=== PATIENT | female | born 1995 | race African-American/Black ===

== ENCOUNTER 2016-09-16 13:22 | Inpatient (IN) ==
[2016-09-16 15:56] LABS: BASO% 0.4 % (0.0-0.8); EOS# 0.39 X1000 (0.0-0.7); EOS% 2.7 % (0.0-10.0); HEMATOCRIT 23.2 % (37.0-47.0); HEMOGLOBIN 7.5 g/dL (12.0-16.0); IMM GRAN# 0.04 X1000 (0.0-0.04); IMM GRAN% 0.3 % (0.0-0.5); LYMPH# 3.05 X1000 (1.2-3.4); LYMPH% 20.9 % (20.5-51.1); MANUAL DIFF NEEDED? NO; MCH 25.3 PG (27-31); MCHC 32.3 g/dL (33-37); MCV 78.1 FL (81-99); MONO# 0.84 X1000 (0.11-0.59); MONO% 5.7 % (1.7-9.3); MPV 8.5 FL (7.4-10.4); PLT 177 X1000 (130-400); RBC 2.97 XMIL (4.2-5.4); RETIC% 16.03 % (0.8-2.1); RETIC-HE 23.7 PG (28.2-36.6)
[2016-09-16] MEDS ORDERED: ZOFRAN IV ONE (16:30)
[2016-09-16] MEDS ORDERED: NS 1,000 ML IV ONE (16:30)
[2016-09-16] MEDS ORDERED: DILAUDID IM ONE (16:30)
--- NOTE | 2016-09-16 16:36 | PROVIDER DOCUMENTATION ---
HPI-Musculoskeletal Pain/Inj - GENERAL Chief Complaint: Generalized Pain Stated Complaint: SICKLE CELL Time Seen by Provider: 09/16/16 13:23 Past History - Adult - PAST MEDICAL HISTORY-ADULT Major Childhood Illnesses: reports: denies history, history unknown Cardiovascular: reports: denies history Respiratory: reports: asthma Gastrointestinal: reports: denies history Obstetrical/Gynecological: reports: denies history Genitourinary: reports: denies history Musculoskeletal: reports: chronic pain (due sickle cell crisis) Neurological: reports: denies history Endocrine/Immune: reports: Sickle Cell disease Sickle Cell Genotype:: SS Other Conditions: reports: denies history - PRIOR SURGERIES/PROCEDURES Surgical/Procedure History: reports: cholecystectomy, indwelling device (P-A-C placement) - IMMUNIZATION STATUS Childhood Immunizations: See Nurse Assessment Flu Vaccine: See Nurse Assessment - FAMILY HISTORY Family History: sickle cell disease/trait
--- NOTE | 2016-09-16 16:39 | PROVIDER DOCUMENTATION ---
HPI-General Adult - General Chief Complaint: Generalized Pain Stated Complaint: SICKLE CELL Time Seen by Provider: 09/16/16 13:23 Source: patient Allergies/Adverse Reactions: Patient Allergies Allergy/AdvReac Type Severity Reaction Status Date / Time latex Allergy Mild RASH Verified 09/09/16 08:35 meperidine HCl * AdvReac Severe SHORTNESS Verified 09/09/16 08:35 [From Demerol] OF BREATH; AND HEADACHE morphine AdvReac Mild HEADACHE Verified 09/09/16 08:35 AND HIVES vancomycin AdvReac Mild RASH Verified 09/09/16 08:35 Home Medications: Hydroxyurea 500 mg PO BID 06/17/16 - History of Present Illness -Gen Adult Nature of Presenting Problems: Pt is 21 y/o F presents to the ED with generalized pain. Pt states she hurts everywhere. Pt denies F. Pt denies N/V/D Location of Pain/Injury: reports: generalized Pain Radiation: reports: no radiation Quality of Pain: reports: aching Severity: reports: severe Onset/Duration: reports: just prior to arrival Timing: reports: still present, intermittent Context/Activities at Onset: reports: light activity Modifying Factors: improves with: nothing Associated Symptoms: reports: denies symptoms, arm pain, back/neck pain, chest pain, joint pain, muscle aches, weakness, trouble walking. denies: anxiety, constipation, cough, diaphoresis, diarrhea, dizziness, EENT symptoms, fatigue, fever/chills, genitourinary problems, headaches, heartburn, loss of appetite, malaise, sinus congestion/drainage, nausea, rash, seizure, shortness of breath, sensory/motor loss, pain with inspiration, swelling/mass in abdomen, syncope, vomiting Similar Symptoms Previously?: Yes Recently seen or treated by another doctor?: Yes - Sickle Cell Pain Related Context Sickle Cell Pain Location: reports: generalized Is this pain typical of prior episodes of crisis?: Yes Last crisis:: 09/09/2016 Review of Systems - Adult - REVIEW OF SYSTEMS - ADULT Constitutional: denies: chills, fever Eyes: denies: blurred vision, double vision Ears, Nose, Mouth & Throat: denies: ear pain, nose pain, throat pain Cardiovascular: reports: chest pain, irregular heart rate (tachy). denies: heart murmur Respiratory: denies: cough, shortness of breath, wheezing Gastrointestinal: reports: abdominal pain. denies: diarrhea, nausea, vomiting Genitourinary: denies: dysuria, hematuria Musculoskeletal: reports: bone pain, back pain, joint pain, muscle aches, neck pain Integumentary: denies: hives, itching Neurological: denies: dizziness/vertigo, headache/migraines Psychiatric: reports: no symptoms reported Endocrine: reports: no symptoms reported Hematologic/Lymphatic: reports: no symptoms reported Allergic/Immunologic: reports: no symptoms reported All Other Systems: Reviewed and Negative Past History - Adult - PAST MEDICAL HISTORY-ADULT Review of Records: reports: Nursing Assessment Review, Medications Reviewed, Social history reviewed & non-contributory. Major Childhood Illnesses: reports: denies history, history unknown Cardiovascular: reports: denies history Respiratory: reports: asthma Gastrointestinal: reports: denies history Obstetrical/Gynecological: reports: denies history Genitourinary: reports: denies history Musculoskeletal: reports: chronic pain (due sickle cell crisis) Neurological: reports: denies history Endocrine/Immune: reports: Sickle Cell disease Sickle Cell Genotype:: SS Other Conditions: reports: denies history - PRIOR SURGERIES/PROCEDURES Surgical/Procedure History: reports: cholecystectomy, indwelling device (P-A-C placement) - IMMUNIZATION STATUS Childhood Immunizations: See Nurse Assessment Flu Vaccine: See Nurse Assessment - FAMILY HISTORY Family History: sickle cell disease/trait - SOCIAL HISTORY Smoking: denies Substance Use: denies Living Situation: family Physical Exam-General - PHYSICAL EXAM-ADULT Initial Vital Signs Reviewed: Yes - CONSTITUTIONAL General Appearance: appears well, alert, severe distress, anxious - EYES Eyes: PERRL/EOMI, pink conjunctivae - HEAD, EARS, NOSE, MOUTH & THROAT HENMT: normocephalic/atraumatic, moist mucous membranes, normal ENT inspection - NECK Neck: full range of motion, supple, normal inspection, tender midline - RESPIRATORY Respiratory: lungs clear, normal breath sounds, other (chest tenderness) - CARDIOVASCULAR Cardiovascular: normal peripheral pulses, no edema, tachycardia - GASTROINTESTINAL (ABDOMEN) Abdominal Exam: normal bowel sounds, soft, tenderness - LYMPHATIC Lymphatic: no adenopathy - MUSCULOSKELETAL Back Exam: no vertebral tenderness, CVA tenderness Extremity: non-tender, normal gait, tenderness (generalized) - SKIN Integumentary: normal color, normal turgor, warm/dry - NEUROLOGIC 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 II-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 nml as tested, grossly normal, no motor/sensory deficits - PSYCHIATRIC Psych/Mental Status: normal mood/affect, normal thought content, normal thought process, oriented x 3 Progress - PLAN OF CARE/RESULTS Progress/Plan/Lab Results: Laboratory Tests 09/16/16 15:30 WBC 14.61 H RBC 2.97 L Hgb 7.5 L Hct 23.2 L MCV 78.1 L MCH 25.3 L MCHC 32.3 L RDW Std Deviation 18.9 H Plt Count 177 MPV 8.5 Immature Gran % (Auto) 0.3 Neut % (Auto) 70.0 Lymph % (Auto) 20.9 [place] % (Auto) 5.7 Eos % (Auto) 2.7 Baso % (Auto) 0.4 Immature Gran # (Auto) 0.04 Neut # 10.23 H Lymph # 3.05 [place] # 0.84 H Eos # 0.39 Baso # 0.06 Percent Retic 16.03 H Retic Hgb Equivalent 23.7 L Orders Category Date Time Status Saline Loc NOW Care 09/16/16 16:30 Active CHEST-PORTABLE [RAD] Stat Exams 09/16/16 16:31 Ordered BASIC METABOLIC PANEL [CHEM] Stat Lab 09/16/16 16:40 Ordered CBC WITH DIFF [HEME] Stat Lab 09/16/16 15:30 Completed RETIC COUNT [HEME] Stat Lab 09/16/16 15:30 Completed UA NIMS W/REFLEX CULT [URINALYSIS] Stat Lab 09/16/16 16:30 Uncollected 0.9% Sodium Chloride Inj [Ns] 1,000 ml Med 09/16/16 16:30 Active IV 999 mls/hr Hydromorphone [Dilaudid] Med 09/16/16 16:30 Discontinued 1 mg IM NOW ONE Ondansetron [Zofran] Med 09/16/16 16:30 Discontinued 4 mg IV NOW ONE Vital Signs - 24 hr 09/16/16 13:41 Temperature 98.3 F Pulse Rate 100 H Respiratory 22 Rate Blood Pressure 91/67 O2 Sat by Pulse 100 Oximetry - XRAY 1 XRAY: Bilateral XRAY Study: Chest Impression: Normal XRAY Interpretation: NAD - CONSULTS/PCP/HOSPITALIST Notification #1 *Consult/PCP/Hospitalist*: Dr. Patterson Time Discussed: 17:07 (Dr. Coles accepted admit ) Reason/Comments: Dr. Coles consults with Dr. Patterson Consult Disposition: Admit Departure - Departure Time of Disposition Order: 17:01 DIAGNOSIS: Sickle cell crisis Disposition: ADMITTED INPATIENT 09 Certified Medical Emergency: Emergent Condition: Stable Additional Instructions: ED Follow Up Instructions: You have been treated by a care provider in the Emergency Department. These instructions are being provided to you so you can have an understanding of how to care for yourself upon discharge. Upon discharge from the Emergency Department, you are responsible for making arrangements for follow-up care by a physician of your choice. Take all prescribed medications as directed. Return to the Emergency Department immediately for any new or worsening symptoms. You may call the Physician Referral phone number at [phone] to obtain a list of Physicians who are taking new patients. Referrals: None,PCP [Primary Care Provider] - Attestation - Scribe Verification/Attestation Scribe:: Mariza Schuster Acting as Scribe for:: Jamia Coles Scribe documention review:: This chart was documented by a scribe and accurately reflects the service the provider performed and the decisions made by the provider.
[2016-09-16 17:20] LABS: AGAP 13; BUN 5 mg/dL (8-22); CALCIUM 8.7 mg/dL (8.8-10.2); CHLORIDE 104 mmol/L (98-107); COSMO 278; SODIUM 141 mmol/L (136-145); TCO2 24 mmol/L (25-35)
[2016-09-16] MEDS ORDERED: NORCO-7.5 PO PRN (18:47)
[2016-09-16] MEDS ORDERED: DILAUDID IV PRN (18:50)
[2016-09-16] MEDS: FOLIC ACID PO SCH (19:15)
[2016-09-16] MEDS: NS 1,000 ML IV SCH (19:15)
--- NOTE | 2016-09-16 19:33 | Diag Imaging Result Document ---
PROCEDURE NAME: CHEST-PORTABLE - 09/16/2016 PROCEDURE TIME: 16:50 hours. FINDINGS: There is no evidence of acute cardiac or pulmonary disease. There is a Port-A-Cath, the port of which is in the lower lateral right chest with its tip in the superior vena cava. Compared to the previous study of 09/10/2016, the heart size appears slightly smaller. IMPRESSION: No evidence of acute disease.
[2016-09-16] MEDS: HYDREA PO SCH (20:50)
--- NOTE | 2016-09-16 23:29 | HISTORY AND PHYSICAL ---
PCP: None. CONSTRUCTION SUPERVISOR: Dr. Salmon. PRESENTING COMPLAINT: Generalized joint pains, chest pain to the back. HISTORY OF PRESENTING COMPLAINT: Ms. Henley is a 21-year-old female with a known history of sickle cell disease. The patient was just discharged from the hospital on 09/14/2016 after she was in for over 4 days. On that occasion patient was admitted for chest pain as well as generalized pain was controlled but according to her while she was being discharged she was still having some minimum chest pain. Subsequently at home as they just got worse radiated to the back and now she is having generalized pain in all her joints. She denies any fever. She denies any diarrhea, cough or any other source of possible infection. Patient therefore came to emergency room where she was evaluated and we were asked to see the patient for possible admission. PAST MEDICAL HISTORY: 1. History sickle cell disease with frequent pain crisis. 2. Chronic leukocytosis. 3. Asthma. 4. Depression. 5. Avascular necrosis of left femoral head. PAST SURGICAL HISTORY: Cholecystectomy. SOCIAL HISTORY: Patient denies any tobacco use or alcohol use. The patient is disabled because of sickle cell. FAMILY HISTORY: Two siblings with sickle cell trait. ALLERGIES: LATEX, MORPHINE, DEMEROL AND VANCOMYCIN. HOME MEDICATIONS: Include hydroxyurea, folic acid. REVIEW OF SYSTEMS: A 10-point review of system conducted with the patient. Unremarkable except what we have in the HPI. EXAM: Vital signs: Blood pressure 91/67, pulse of 71, respirations 22, temperature is 98.3 degrees. General: Ms. Henley is a 21-year-old female. She is in bed in some painful distress. HEENT: Mucosa is pink and moist. Anicteric. Acyanotic. Neck: Supple. Chest: Was clear. Cardiovascular: Regular rate and rhythm. There is no murmurs, no rubs, no gallops. Abdomen: Soft. Mildly tender in the epigastrium. Bowel sounds are present. No hepatosplenomegaly. Extremities: No pedal edema. TRIAGE RN: Patient is alert. She is oriented x4. Executive functions are intact. Cranial nerves 2-12 are grossly examined, intact. Cortical functions are also normal. Patient power and reflexes are intact general. Musculoskeletal: Patient has tenderness mobilizing every joint that she has. She also has some tenderness in the costochondral region and at the back. LABORATORY DATA: WBC is 14.61, hemoglobin is 7.5, platelet count of 177,000, reticulocyte count is 16. Chemistry. Sodium is 141, potassium is 4.0, chloride is 104, bicarb is 24, anion gap of 13, BUN is 5, calcium is 8.7. A chest x-ray done today is completely unremarkable. ASSESSMENT: 1. Sickle cell in painful crisis. 2. Hemolytic anemia of sickle cell disease. Reticulocyte count is high but patient's hemoglobin and hematocrit is 7.5 which seems to be her baseline. We will keep a very close eye on this. 3. History of asthma. Not in exacerbation. 4. Depression. 5. Vascular necrosis of the femoral head. PLAN: We are going to admit the patient to the medical floor. We are going to hydrate her with normal saline at the rate of 125 mL/h. We are also going to put her on pain medications including [place] and hydromorphone p.r.n. We will consult Dr. Salmon tomorrow morning to review the patient as well. The patient has been in and out of hospital forever. I think we probably need to get social staff worker involved to get her a primary care doctor to prevent the constant in and out at admissions.
[2016-09-16] MEDS: BENADRYL IV PRN (23:46)
[2016-09-16] MEDS: SODIUM CHLORIDE 0.9% INJ PRN (23:46)
[2016-09-16] MEDS: PHENERGAN IV PRN (23:47)
[2016-09-16] MEDS: DILAUDID IV PRN (23:47)
[2016-09-17 01:29] LABS: URINE CULTURE PL NEEDED? NO
[2016-09-17 01:47] LABS: BILIRUBIN URINE NEGATIVE (NEGATIVE); BLOOD URINE NEGATIVE (NEGATIVE); CLARITY CLEAR (CLEAR); COLOR YELLOW; GLUCOSE URINE NEGATIVE (NEGATIVE); LEUKOCYTES URINE NEGATIVE (NEGATIVE); NITRITE URINE NEGATIVE (NEGATIVE); PROTEIN URINE NEGATIVE (NEGATIVE); SP GRAVITY URINE 1.015; UROBILINOGEN URINE NORMAL
[2016-09-17 02:14] LABS: URINE EPITHELIAL CELLS <10 /HPF (<10); URINE WBC <10 /HPF (<10)
[2016-09-17 02:15] LABS: URINE SOURCE CLEAN CATCH
[2016-09-17] MEDS: DILAUDID IV PRN ×7 (03:35→22:07)
[2016-09-17] MEDS: NS 1,000 ML IV SCH ×3 (03:36→18:35)
[2016-09-17 06:36] LABS: BASO% 0.4 % (0.0-0.8); EOS# 0.43 X1000 (0.0-0.7); HEMATOCRIT 19.8 % (37.0-47.0); HEMOGLOBIN 6.4 g/dL (12.0-16.0); IMM GRAN# 0.03 X1000 (0.0-0.04); IMM GRAN% 0.3 % (0.0-0.5); LYMPH% 35.6 % (20.5-51.1); MANUAL DIFF NEEDED? YES; MCH 25.3 PG (27-31); MCHC 32.3 g/dL (33-37); MCV 78.3 FL (81-99); MONO# 0.72 X1000 (0.11-0.59); MONO% 6.7 % (1.7-9.3); MPV 8.6 FL (7.4-10.4); PLT 146 X1000 (130-400); RBC 2.53 XMIL (4.2-5.4)
[2016-09-17] MEDS: BENADRYL IV PRN ×4 (06:54→22:08)
[2016-09-17 07:10] LABS: AGAP 6; ALBUMIN 3.6 g/dL (3.5-5.0); BUN 4 mg/dL (8-22); CALCIUM 8.2 mg/dL (8.8-10.2); CHLORIDE 106 mmol/L (98-107); COSMO 272; POTASSIUM 3.6 mmol/L (3.5-5.1); SODIUM 138 mmol/L (136-145); TCO2 26 mmol/L (25-35)
[2016-09-17 07:11] LABS: ALKALINE PHOSPHATASE 94 U/L (32-104); GOT 24 U/L (10-30); GPT 13 U/L (10-36)
[2016-09-17] MEDS: FOLIC ACID PO SCH (09:08)
[2016-09-17 09:19] LABS: EOS 3 % (1-10); LYMPHS 29 % (21-51); MONO 4 % (1-9); NRBC 4 % (0-0)
[2016-09-17 09:20] LABS: HYPOCHROM 2+; POLYCHROM OCCASIONAL
[2016-09-17 09:21] LABS: TARGET CELLS OCCASIONAL
[2016-09-17] MEDS: SODIUM CHLORIDE 0.9% INJ PRN ×3 (10:12→22:08)
[2016-09-17] MEDS: PHENERGAN IV PRN ×3 (10:12→22:08)
[2016-09-17] MEDS: HYDREA PO SCH ×2 (10:13→20:24)
[2016-09-17] MEDS ORDERED: NS 500 ML IV ONE ×2 (16:35)
[2016-09-17] MEDS ORDERED: BENADRYL PO ONE (16:35)
[2016-09-17] MEDS ORDERED: TYLENOL PO ONE (16:35)
--- NOTE | 2016-09-17 16:48 | CONSULTATION ---
DATE OF CONSULTATION: 09/17/2016 REASON FOR CONSULTATION: Sickle-cell crisis. The patient seen in consultation at the request of Dr. Patterson. HPI: Ms. Henley is a sickle cell patient well known to our clinic for multiple hospitalizations for sickle cell pain crisis. She was discharged on 09/14/2016 after a pain crisis. At the time of that discharge she was having 3/10 chest pain but subsequently worsened to 8 to 9/10 and was affecting primarily her chest and back but then spread to all of her joints and she presented back to the emergency room. She denies any fevers, chills, diarrhea, cough or sore throat. PAST MEDICAL HISTORY: 1. Sickle cell disease with frequent pain crisis. 2. Depression. 3. Avascular necrosis of left femoral head. 4. Asthma. 5. Chronic leukocytosis. PAST SURGICAL HISTORY: Cholecystectomy. SOCIAL HISTORY: Patient denies tobacco, alcohol or illicit drug use. FAMILY HISTORY: Positive for sickle cell trait. ALLERGIES: VANCOMYCIN, DEMEROL, MORPHINE, LATEX. HOME MEDICATIONS: Hydroxyurea and folic acid along with pain medications. REVIEW OF SYSTEMS: Pertinent positives and negatives as per HPI. All other review of systems are negative. PHYSICAL EXAMINATION: General: At the time of consultation generally the patient is chronically ill-appearing lying in the bed in no acute distress. HEENT: Normocephalic, atraumatic. Sclerae icteric. Oropharynx is dry. Neck: Supple and symmetric with no lymphadenopathy. Cardiovascular: Regular rate and rhythm. Normal S1, S2. No murmurs, rubs, or gallops. Pulmonary: Lungs clear to auscultation anteriorly bilaterally without wheezes , rales, rhonchi. Gastrointestinal: Abdomen is soft, nontender, nondistended. Normoactive bowel sounds. Extremities: No clubbing, cyanosis or edema. Musculoskeletal: Tenderness to palpation of chest wall. Neuro: Alert, oriented x3. No focal deficits. Vital Signs: Temperature 97.9 degrees, pulse 75, respiratory rate 18, blood pressure 110/62, O2 saturation 99% on room air. LABORATORY DATA: White count 10.68, hemoglobin 6.4, platelet count 146,000. Sodium 138, potassium 3.6, chloride 106, bicarb 26, BUN 4, creatinine 0.4, glucose 91, total bilirubin 0.8, retic is 16%. Chest x-ray with no acute disease. ASSESSMENT AND PLAN: This is a 21-year-old female with sickle cell pain crisis. 1. Sickle cell disease: I agree with current pain control. We discussed goals of care with the expectation of lowering her pain score but not completely eradicating her pain. I will place her on O2 via nasal cannula to improve her oxygenation and decrease sickling. She will continue on her hydroxyurea and folic acid at this time. 2. Anemia: Her hemoglobin runs in the 7 to 8 range and she is less than 6.5 at this time. Given her ongoing crisis I have recommended transfusion of 1 unit of packed red blood cells. Risks and side effects were discussed in detail and she agreed to proceed. Thank you for the consultation the opportunity to participate in the care of this patient. I will follow along with you and leave further recommendations as indicated. NELLA
--- NOTE | 2016-09-17 17:02 | PROGRESS NOTE ---
DATE: 09/17/2016 SUBJECTIVE: Patient is still having pain. OBJECTIVE: Vital signs: Blood pressure 126/60, heart rate 65, respiratory rate 18, temperature 98.3 degrees. Cardiovascular: Regular rate and rhythm. Pulmonary: Bilateral breath sounds. Clear to auscultation. GI: Soft, nontender, nondistended. Bowel sounds are positive. LABORATORY DATA: Hemoglobin and hematocrit are 6 and 19 today, dropped from 7 and 23. Reticulocyte count yesterday was 16%, that is fairly high for her. She is usually below 10, more in the 3 to 5% range at baseline, although she has been steadily climbing since [place]. In any case, chemistries are okay. ASSESSMENT: Sickle cell crisis with active hemolysis and reticulocytosis. I think transfusion is in order. Dr. Alexander has ordered 1 unit of blood. Appreciate her following here at [facility]. We will continue hydration, O2, folic acid, hydroxyurea, and follow. DISPOSITION: Pending resolution of her pain crisis. May be a couple of days.
[2016-09-18] MEDS: SODIUM CHLORIDE 0.9% INJ PRN ×4 (02:01→18:37)
[2016-09-18] MEDS: DILAUDID IV PRN ×7 (02:01→21:50)
[2016-09-18] MEDS: BENADRYL IV PRN ×4 (05:53→18:37)
[2016-09-18] MEDS: PHENERGAN IV PRN ×5 (05:53→21:50)
[2016-09-18] MEDS: NS 1,000 ML IV SCH ×2 (06:07→12:35)
[2016-09-18 06:42] LABS: HEMATOCRIT 26.7 % (37.0-47.0); HEMOGLOBIN 8.8 g/dL (12.0-16.0); MCV 78.8 FL (81-99); MPV 8.5 FL (7.4-10.4); RBC 3.39 XMIL (4.2-5.4); RETIC% 11.98 % (0.8-2.1); RETIC-HE 22.4 PG (28.2-36.6)
[2016-09-18 07:02] LABS: AGAP 8; BUN 8 mg/dL (8-22); CALCIUM 8.8 mg/dL (8.8-10.2); CHLORIDE 106 mmol/L (98-107); COSMO 280; POTASSIUM 3.9 mmol/L (3.5-5.1); SODIUM 141 mmol/L (136-145); TCO2 27 mmol/L (25-35)
[2016-09-18] MEDS: FOLIC ACID PO SCH (09:23)
[2016-09-18] MEDS: HYDREA PO SCH ×2 (09:23→21:50)
--- NOTE | 2016-09-18 14:00 | PROGRESS NOTE ---
DATE: 09/18/2016 SUBJECTIVE: The patient states she is still having pain although it is less today. She denies any chest pain, palpitations, shortness of breath, dyspnea. OBJECTIVE: Vital Signs: Blood pressure is 138/86 with a heart rate of 71, respirations are 16, temperature is 98.4 degrees oral with room saturations of 100%. Cardiovascular: Regular rate and rhythm. S1 and S2 appreciated. Pulmonary: Breath sounds are clear. No increased work of breathing noted. Gastrointestinal: Abdomen is soft, nontender, nondistended. Bowel sounds in all 4 quadrants. Extremities: No clubbing, cyanosis, or edema. Calves are nontender. Pulses are palpable x4. LABS: WBC is 10.79 with hemoglobin 8.8, hematocrit 26.7, and platelets of 167,000. Sodium is 141, potassium 3.9, BUN 8, creatinine 0.4 with a glucose of 97. Her reticulocyte percent is 11.98 with reticulocyte hemoglobin equivalent 22.4. ASSESSMENT AND PLAN: Sickle cell crisis with active hemolysis and reticulocytosis. Will continue with hydration, O2, folic acid, hydroxyurea. Will repeat labs in the morning. Dictated by CORRINA Molina for Bharat Hernadez MD
[2016-09-19] MEDS: BENADRYL IV PRN ×4 (01:12→15:42)
[2016-09-19] MEDS: SODIUM CHLORIDE 0.9% INJ PRN ×2 (01:12→04:49)
[2016-09-19] MEDS: NS 1,000 ML IV SCH ×3 (01:12→17:52)
[2016-09-19] MEDS: PHENERGAN IV PRN ×4 (01:13→15:42)
[2016-09-19] MEDS: DILAUDID IV PRN ×7 (01:13→18:51)
[2016-09-19 06:05] LABS: HEMATOCRIT 26.8 % (37.0-47.0); HEMOGLOBIN 8.8 g/dL (12.0-16.0); MCH 25.7 PG (27-31); MCHC 32.8 g/dL (33-37); MCV 78.1 FL (81-99); MPV 8.3 FL (7.4-10.4); RBC 3.43 XMIL (4.2-5.4); RETIC% 10.78 % (0.8-2.1); RETIC-HE 22.6 PG (28.2-36.6)
[2016-09-19] MEDS: FOLIC ACID PO SCH (09:51)
[2016-09-19] MEDS: HYDREA PO SCH ×2 (09:52→22:16)
--- NOTE | 2016-09-19 11:43 | DISCHARGE SUMMARY ---
ADMISSION DATE: 09/16/2016 DISCHARGE DATE: 09/19/2016 HOME CARE MANAGER RN: Dr. Salmon. PRIMARY CARE PHYSICIAN: None. ADMISSION DIAGNOSES: 1. Sickle cell and painful crisis. 2. Hemolytic anemia of sickle cell disease. 3. History of asthma. 4. Depression. 5. Vascular necrosis of the femoral head. DISCHARGE DIAGNOSES: 1. Hemolytic anemia of sickle cell disease, crisis resolved. 2. History of asthma. 3. Depression. 4. Vascular necrosis of the femoral head. SUMMARY OF FINDINGS: This is a 21-year-old female who is well known to this hospitalist service. Prior to this admission was discharged from the hospital on 09/14/2016 after she was in for over 4 days at that time. She presented back on 09/16/2016 with complaints that her pain continued to worsen and radiated to her back and generalized pain in all of her joints. She was admitted. We hydrated her with normal saline at 125 mL an hour. Gave IV and p.o. pain medication. She was transferred [facility] to [facility] due to no bed availability at [facility] [place]. Oncologist was not consulted at this time. Oncology saw the patient on 09/17/2016. They recommended transfusing her with 1 unit of packed red blood cells and continue her pain control. Her laboratory data shows today an hemoglobin and hematocrit of 8.8 and 26.8. Her percent reticulocyte count is 10.78. So it is felt that she can safely be discharged home today. DISCHARGE MEDICATIONS: Include a prescription for [place] 10 one p.o. t.i.d., #30 with no refills. She is to continue her home medications of folic acid 1 mg p.o. daily, hydroxyurea 500 mg p.o. b.i.d., albuterol 3-4 times daily as needed. FOLLOWUP: She will follow up with her sales and marketing administrator in 1-2 weeks. All discharge instructions were reviewed with the patient and she verbalized understanding. TIME SPENT: 35 minutes. Dictated by CORRINA Gr for Kristian Jasso MD
[2016-09-19] MEDS ORDERED: HEPARIN INJ ONE (11:49)
--- NOTE | 2016-09-19 21:49 | PROGRESS NOTE ---
DATE: 09/19/2016 SUBJECTIVE: Patient appears to have no complaints, although it is extremely difficult to understand or hear her. She tends to mumble more than talk. I attempted to discuss with Ms. Henley, but I have great difficulty understanding when she does not speak out. OBJECTIVE: Vital signs: Temperature 98.3, pulse 70, respiratory rate 18, blood pressure 125/70. General: Patient is in no respiratory distress. She is awake, alert, oriented. Neck: Supple. CARDIOVASCULAR: Regular rate. Chest: Clear. Nonlabored. Abdomen: Soft, nondistended. Extremities: Moves all extremities. Neurologic: No changes. LABORATORY DATA: Hemoglobin and hematocrit 8 and 26, reticulocyte count 22. ASSESSMENT: 1. Sickle cell pain crisis. Appears resolved. Patient has no outward symptoms of pain. She is lying in the bed playing on her phone. It is difficult to get her to answer questions and put her phone down. 2. Sickle cell anemia. Her hemoglobin and hematocrit is as good as she gets. PLAN: Certainly hopefully we will discharge the patient home today. We will again attempt to encourage her to get out of bed as we do each time she is in the hospital. Further orders as needed.
[2016-09-20] MEDS: DILAUDID IV PRN ×3 (01:45→08:38)
[2016-09-20] MEDS: NS 1,000 ML IV SCH (01:49)
[2016-09-20] MEDS: BENADRYL IV PRN ×2 (04:47→08:38)
[2016-09-20] MEDS: PHENERGAN IV PRN (04:47)
[2016-09-20 05:51] VITALS: BP 93/50
[2016-09-20] MEDS: FOLIC ACID PO SCH (08:39)
[2016-09-20] MEDS: HYDREA PO SCH (08:39)
[2016-09-20] MEDS ORDERED: HEPARIN ONE (10:10)
== END 2016-09-20 10:51 | disposition home or self-care (01) | DRG 812 ==
LOC: ED 13:22 → EDIPHOLD 20:06 → P.MEDSURG 21:45
PROVIDERS: ATTEND Family Medicine
PROC: 30233N1 Transfusion of Nonautologous Red Blood Cells into Peripheral Vein, Percutaneous Approach (ICD-10-PCS; principal; 2016-09-17)
DX: D57.00 Hb-SS disease with crisis, unspecified (principal); M87.9 Osteonecrosis, unspecified; J45.909 Unspecified asthma, uncomplicated; F32.9 Major depressive disorder, single episode, unspecified; Z79.899 Other long term (current) drug therapy
CPT/HCPCS: 71010; 80048; 80053; 81001; 85025; 85027; 85045; 86850; 86900; 86901; 86920; 96361; 96374; 96375; J1170; J1200; J2405; J2550; J7030; P9016; S0176

== ENCOUNTER 2016-11-03 15:02 | Inpatient (IN) ==
[2016-11-03] MEDS ORDERED: DILAUDID IV ONE (15:33)
[2016-11-03] MEDS ORDERED: NS 1,000 ML IV ONE (15:33)
[2016-11-03] MEDS ORDERED: BENADRYL IM ONE (15:34)
[2016-11-03] MEDS ORDERED: ZOFRAN IV ONE (15:34)
[2016-11-03] MEDS ORDERED: TYLENOL PO ONE ×2 (15:37→16:19)
[2016-11-03 15:55] LABS: URINE MICRO REVIEW NEEDED? NO; URINE SOURCE CLEAN CATCH
--- NOTE | 2016-11-03 15:57 | PROVIDER DOCUMENTATION ---
HPI-Fever - General Chief Complaint: Sickle Cell Crisis Stated Complaint: SICKLE CELL CRISIS Time Seen by Provider: 11/03/16 15:31 Source: patient Allergies/Adverse Reactions: Patient Allergies Allergy/AdvReac Type Severity Reaction Status Date / Time latex Allergy Mild RASH Verified 10/19/16 02:35 meperidine HCl * AdvReac Severe SHORTNESS Verified 10/19/16 02:35 [From Demerol] OF BREATH; AND HEADACHE vancomycin AdvReac Severe RASH Verified 10/20/16 06:01 morphine AdvReac Mild HEADACHE Verified 10/19/16 02:35 AND HIVES Home Medications: Home Medication List Medication Instructions Recorded Confirmed Last Taken Type Hydroxyurea 500 mg PO BID 06/17/16 10/19/16 10/18/16 21:00 History Folic Acid 1 mg PO DAILY #30 tablet 09/14/16 10/19/16 10/18/16 09:00 Rx Fentanyl 12 Microgm/Hr Patch 12.5 patch TOP DIRECTED 10/19/16 10/19/16 09:00 History [Duragesic 12 Microgm/Hr Patch] Cefazolin Sodium in 0.9 % NaCl 2 gm IV Q8H #1 piggyback 10/24/16 Unknown Rx [Cefazolin-0.9% NaCl 2 G/50 ml] Hydrocodone/Acetaminophen [[place] 1 each PO Q8H PRN PRN #10 tablet 10/30/16 Unknown Rx 10-325 Tablet] - History of Present Illness-Fever Nature of Presenting Problem: 21 y/o F presented to the ER complaining of severe pain in the back and in the hips. She has a hx of sickle cell disease and experience painful episodes every 2-3 months. She denies any other symptoms except for fever and chills. She admits to taking all her vaccinations. Fever Severity/Quality: reports: greater than 100.5 F Onset/Duration: reports: 4-6 hours ago Severity: reports: severe Context: reports: none Recent Illness?: reports: none Fever Therapy WIRING INSPECTOR: Initiated none Cognitive Baseline: alert, oriented x3 Modifying Factors: improves with: nothing Associated Symptoms: reports: back/neck pain, joint pain Similar Symptoms Previously?: Yes Recently seen or treated by another doctor?: Yes Review of Systems - Adult - REVIEW OF SYSTEMS - ADULT Constitutional: reports: fever Eyes: reports: no symptoms reported Ears, Nose, Mouth & Throat: reports: no symptoms reported Cardiovascular: reports: no symptoms reported Respiratory: reports: no symptoms reported Gastrointestinal: reports: no symptoms reported Genitourinary: reports: no symptoms reported Musculoskeletal: reports: bone pain, back pain Integumentary: reports: no symptoms reported Neurological: reports: no symptoms reported Psychiatric: reports: no symptoms reported Endocrine: reports: no symptoms reported Hematologic/Lymphatic: reports: no symptoms reported Allergic/Immunologic: reports: no symptoms reported Past History - Adult - PAST MEDICAL HISTORY-ADULT Major Childhood Illnesses: reports: denies history, history unknown Cardiovascular: reports: denies history Respiratory: reports: asthma Gastrointestinal: reports: denies history Obstetrical/Gynecological: reports: denies history Genitourinary: reports: denies history Musculoskeletal: reports: chronic pain (due sickle cell crisis) Neurological: reports: denies history Endocrine/Immune: reports: Sickle Cell disease Sickle Cell Genotype:: SS Other Conditions: reports: denies history - PRIOR SURGERIES/PROCEDURES Surgical/Procedure History: reports: cholecystectomy, indwelling device (P-A-C placement) - IMMUNIZATION STATUS Childhood Immunizations: See Nurse Assessment Flu Vaccine: See Nurse Assessment - FAMILY HISTORY Family History: sickle cell disease/trait Physical Exam-General - PHYSICAL EXAM-ADULT Initial Vital Signs Reviewed: Yes - CONSTITUTIONAL General Appearance: severe distress - EYES Eyes: PERRL/EOMI - HEAD, EARS, NOSE, MOUTH & THROAT HENMT: normocephalic/atraumatic - NECK Neck: supple - RESPIRATORY Respiratory: lungs clear - CARDIOVASCULAR Cardiovascular: tachycardia - CHEST (BREASTS) Chest/Breast: deferred - GASTROINTESTINAL (ABDOMEN) Abdominal Exam: normal bowel sounds, soft - GENITOURINARY Female Genitalia/Pelvic Exam: deferred - LYMPHATIC Lymphatic: no adenopathy - MUSCULOSKELETAL Back Exam: decreased range of motion, vertebral tenderness Extremity: normal range of motion Peripheral Pulses: dorsalis-pedis (R): 2+, dorsalis-pedis (L): 2+ - SKIN Integumentary: normal color - NEUROLOGIC Neurologic: grossly normal - PSYCHIATRIC Psych/Mental Status: oriented x 3 Progress - PLAN OF CARE/RESULTS Progress/Plan/Lab Results: Patient's pain is mildly improving. Nurse reported that she has a port for frequent IV intake that is infected and draining pus. Patient is still feverish. We agreed to drain the pus and send it for culture and not to use the port till further recommendations by ID. Will admit the patient for IV ANTIBIOTICS AND FOR SURGICAL AND ID DISEASE CONSULTATION ON TOP OF SICKLE PAIN MANAGEMENT. - REASSESSMENT Reassessment #1 Time Reassessed: 17:37 Status: unchanged - CONSULTS/PCP/HOSPITALIST Notification #1 *Consult/PCP/Hospitalist*: DR PIERCE Departure - Departure Time of Disposition Order: 18:04 DIAGNOSIS: Sickle cell disease, Abscess, Fever, Bacteremia Disposition: ADMITTED INPATIENT 09 Certified Medical Emergency: Emergent Condition: Fair Referrals: Ty Saravia MD [Primary Care Provider] -
[2016-11-03 16:08] LABS: BILIRUBIN URINE NEGATIVE (NEGATIVE); BLOOD URINE NEGATIVE (NEGATIVE); COLOR YELLOW; GLUCOSE URINE NEGATIVE (NEGATIVE); LEUKOCYTES URINE NEGATIVE (NEGATIVE); NITRITE URINE NEGATIVE (NEGATIVE); PH URINE 7.5; PROTEIN URINE NEGATIVE (NEGATIVE); SP GRAVITY URINE 1.012; TURBIDITY URINE CLEAR (CLEAR); UROBILINOGEN URINE NORMAL (NORMAL)
[2016-11-03 16:10] LABS: UR EPITHELIAL CELLS <10 /HPF (<10); URINE BACTERIA NEGATIVE /HPF; URINE RBC <10 /HPF (<10); URINE WBC <10 /HPF (<10)
[2016-11-03 16:26] LABS: BASO% 0.4 % (0.0-0.8); EOS# 0.07 X1000 (0.0-0.7); EOS% 0.7 % (0.0-10.0); HEMATOCRIT 25.6 % (37.0-47.0); HEMOGLOBIN 8.5 g/dL (12.0-16.0); IMM GRAN# 0.02 X1000 (0.0-0.04); IMM GRAN% 0.2 % (0.0-0.5); LYMPH% 18.8 % (20.5-51.1); MANUAL DIFF NEEDED? YES; MCH 25.6 PG (27-31); MCHC 33.2 g/dL (33-37); MCV 77.1 FL (81-99); MONO# 0.55 X1000 (0.11-0.59); MONO% 5.2 % (1.7-9.3); MPV 8.6 FL (7.4-10.4); NEUT% 74.7 % (42.2-75.2); PLT 428 X1000 (130-400); RBC 3.32 XMIL (4.2-5.4)
[2016-11-03 16:34] LABS: AGAP 13; ALBUMIN 4.4 g/dL (3.5-5.0); ALKALINE PHOSPHATASE 112 U/L (32-104); BUN 6 mg/dL (8-22); CALCIUM 8.7 mg/dL (8.8-10.2); CHLORIDE 97 mmol/L (98-107); COSMO 263; GOT 21 U/L (10-30); GPT 13 U/L (10-36); POTASSIUM 3.6 mmol/L (3.5-5.1); SODIUM 133 mmol/L (136-145); TCO2 23 mmol/L (25-35); TOTAL BILIRUBIN 1.37 mg/dL (0.20-1.00); TOTAL PROTEIN 7.9 g/dL (6.3-8.3)
[2016-11-03 16:38] LABS: LYMPHS 15 % (21-51)
[2016-11-03 16:39] LABS: HYPOCHROM 2+
[2016-11-03 16:40] LABS: TARGET CELLS 1+
[2016-11-03] MEDS ORDERED: NORCO-10 PO PRN (18:25)
[2016-11-03] MEDS ORDERED: ZOFRAN IV PRN (18:25)
[2016-11-03] MEDS ORDERED: DILAUDID ONE (18:58)
[2016-11-03] MEDS: ROCEPHIN 2 GM/NS 50 ML IV SCH (19:05)
[2016-11-03] MEDS: DILAUDID IV PRN ×2 (19:05→22:03)
[2016-11-03] MEDS: NS 1,000 ML IV SCH (19:58)
[2016-11-03] MEDS ORDERED: CUBICIN (FOR INPATIENT USE) 600 MG in NS 100 ML IV ONE (20:00)
--- NOTE | 2016-11-03 20:00 | HISTORY AND PHYSICAL ---
PRIMARY CARE PROVIDER: No one. DRUMS TEACHER: Dr. Salmon. CHIEF COMPLAINT: Backache and hip pains and subjective fever with chills for the last 2 days. HISTORY OF PRESENT ILLNESS: Ms Henley is a 21-year-old female with a history of sickle cell disease with painful flares about every 2-3 months who is well known to our service. She has a right chest port that she has been receiving IV antibiotics Ancef for Kraig bacteremia that was undiagnosed 10/19/2016 and she was discharged 10/29/2016 on Ancef IV q.8 hours who is followed by [facility] on at home with her last cultures prior to this admission for blood was negative on 10/23/2016. Apparently she has been having complaints of subjective fever with chills for last 2 days, increasing pain in her back and hip. Workup revealed a fever of 100.2, she was tachycardic rate 100-1 teens with a white blood cell count of 10,000. Nurse observed that the site was oozy, the port site was oozy and access was removed de- accessed and it was noted that there were per the notes yellow exudate mixed with blood that began draining from the needle penetration area. This exudate was collected for sample and was sent for culture. We will begin treat with a 1 time dose of Cubicin and scheduled Rocephin IV and treat her pain crisis. PAST MEDICAL HISTORY: 1. Sickle cell disease with frequent pain crises. 2. Chronic leukocytosis. 3. Asthma. 4. Depression. 5. Avascular necrosis of the left femoral head. PAST SURGICAL HISTORY: Cholecystectomy and port placement. SOCIAL HISTORY: Denies tobacco, alcohol or illicit drug use. FAMILY HISTORY: Has 2 siblings with sickle cell trait. ALLERGIES: Latex, Demerol, vancomycin, morphine. HOME MEDICATIONS: Hydroxyurea 500 mg p.o. twice daily, fentanyl patch 12.5 topical daily, [place] 10 1 tab p.o. q.8 hours p.r.n., Ancef 2 g IV q.8 hours, folic acid 1 mg p.o. daily. REVIEW OF SYSTEMS: Fourteen point review of systems were complete and all were negative for those mentioned above HPI. LABORATORY DATA: White blood cells 10,000, hemoglobin 8.5, hematocrit 25.6, platelet count 428,000. Sodium 133, potassium 3.6, BUN 6, creatinine 0.4. Glucose 89, calcium 8.7, total bilirubin 1.37, AST 21, ALT 13, CK 40. Urinalysis 10 ketones otherwise negative. Chest x-ray has not been officially reported. PHYSICAL EXAMINATION: VITAL SIGNS: Temperature is 100.2 degrees, heart rate 100, respiratory rate 13 , blood pressure 110/55, O2 saturation 100% on room air, she is 5 feet 6 inches tall, 140 pounds , BMI 22.6. GENERAL: Ms. Henley is a 21-year-old female in no acute distress but is very tearful, she is able answer all questions appropriately. HEENT: Atraumatic, normocephalic. Pupils equal, round, reactive to light. Extraocular movements intact . CARDIOVASCULAR: S1, S2. Regular rate and rhythm. No rubs, gallops, murmurs. PULMONARY: Clear to auscultate. Bilateral breath sounds. No accessory muscle use or work of breathing noted. GI: Soft, nontender, nondistended. Positive bowel sounds x4. EXTREMITIES: No edema noted, +2 dorsalis radial pulses. NEUROLOGIC: A and O x4. Moves all extremities equally. SKIN: Warm, dry, intact. Right chest below the right breast port site is currently dry with a dry gauze over it and de-accessed but was reported that there was yellow exudate that came out with blood when de-accessed. ASSESSMENT AND PLAN: 1. Recent Mssa bacteremia that she has been treated with Ancef at home with. She has had complaints of subjective fever with chills the last 2 days and was found to have fever here. Will give her a 1 time dose of Cubicin for MRSA coverage and start her on scheduled IV Rocephin and follow up with blood cultures and right port site cultures and may need to reconsult Dr. Castellanos after workup is completed. 2. Sickle cell disease with frequent pain crises. Will continue with Dilaudid 1-2 q.3 hours p.r.n., with [place] p.r.n., Benadryl for itching, Zofran for nausea. Her pain is located in her lower back and hips bilaterally. 3. Asthma stable. 4. Depression stable. 5. Chronic elevation of hyperbilirubinemia is currently 1.37 and the trend looks like she is anywhere from 1.43-1.5 in the last month will continue to trend her bilirubin. 6. Deep venous thrombosis prophylaxis. Will do SCDs. 7. Gastrointestinal prophylaxis. Proton pump inhibitor. Dictated by CORRINA Stanford for Brock Patterson MD MTDD
--- NOTE | 2016-11-03 21:18 | Diag Imaging Result Document ---
PROCEDURE NAME: CHEST-2 VIEWS - 11/03/2016 AP AND LATERAL RADIOGRAPH OF THE CHEST: COMPARISON: 10/26/2016. FINDINGS: Right chest port is in stable position. Inspiration is somewhat suboptimal. The lungs are grossly clear, otherwise. There is no definite pleural fluid collection. Cardiac silhouette appears mildly prominent. Central vasculature is grossly unremarkable. IMPRESSION: Mildly prominent cardiac silhouette. No definite acute pathology, otherwise.
[2016-11-03] MEDS: ZOFRAN IV PRN (22:04)
[2016-11-03] MEDS: BENADRYL IV PRN (22:04)
[2016-11-03] MEDS: HYDREA PO SCH (22:17)
[2016-11-04] MEDS: DILAUDID IV PRN ×8 (01:08→23:00)
[2016-11-04] MEDS: ZOFRAN IV PRN ×4 (04:10→23:00)
[2016-11-04] MEDS: BENADRYL IV PRN ×5 (04:10→23:00)
[2016-11-04 06:42] LABS: BASO% 0.5 % (0.0-0.8); HEMATOCRIT 23.2 % (37.0-47.0); HEMOGLOBIN 7.6 g/dL (12.0-16.0); LYMPH# 3.12 X1000 (1.2-3.4); MANUAL DIFF NEEDED? NO; MCH 25.4 PG (27-31); MCHC 32.8 g/dL (33-37); MCV 77.6 FL (81-99); MONO# 0.78 X1000 (0.11-0.59); MPV 8.2 FL (7.4-10.4); NEUT% 57.5 % (42.2-75.2); PLT 340 X1000 (130-400); RBC 2.99 XMIL (4.2-5.4)
[2016-11-04 06:50] LABS: INR 1.07; PROTIME 11.4 Seconds (9.2-11.7); PTT 27.8 Seconds (22.0-36.0)
[2016-11-04] MEDS ORDERED: PRILOSEC PO SCH (07:00)
[2016-11-04 07:03] LABS: AGAP 12; ALBUMIN 3.7 g/dL (3.5-5.0); ALKALINE PHOSPHATASE 122 U/L (32-104); BUN 9 mg/dL (8-22); CHLORIDE 106 mmol/L (98-107); COSMO 282; GOT 17 U/L (10-30); GPT 10 U/L (10-36); POTASSIUM 4.2 mmol/L (3.5-5.1); SODIUM 142 mmol/L (136-145); TCO2 24 mmol/L (25-35); TOTAL BILIRUBIN 0.77 mg/dL (0.20-1.00); TOTAL PROTEIN 6.8 g/dL (6.3-8.3)
[2016-11-04] MEDS: NS 1,000 ML IV SCH ×3 (07:20→23:00)
[2016-11-04] MEDS: PRILOSEC PO SCH (08:06)
--- NOTE | 2016-11-04 09:44 | ED EKG INTERP ---
EKG Interpretation - EKG Time of EKG reading by physician:: 16:36 EKG Read and Signed by:: Alicia Conner EKG Interpretation (*Must complete 3 of following elements*): Normal Rate: 82 Rhythm: normal sinus rhythm [place]: normal
[2016-11-04] MEDS: DURAGESIC 12 MICROGM/HR PATCH TD SCH (09:55)
[2016-11-04] MEDS: HYDREA PO SCH ×2 (09:56→23:00)
[2016-11-04] MEDS: FOLIC ACID PO SCH (09:56)
--- NOTE | 2016-11-04 19:46 | PROGRESS NOTE ---
DATE: 11/04/2016 SUBJECTIVE: Today Ms. Henley referred to be doing a whole lot better. Pain is under control. She has not had any more fever since she got admitted. OBJECTIVE: Vital signs: Blood pressure is 128/58, pulse of 79, respirations 18 , temperature is 98.2 degrees. General: Ms. Henley is a 21-year-old female. She is in bed, no distress. HEENT: Mucosa is pink and moist. Anicteric. Acyanotic. Neck: Supple. Chest: Clear. Cardiovascular: Regular rate and rhythm. Chest: There is a Mcmanus catheter under the right breast, midline. It is slightly tender on the skin on top of it. However , there are no erythematous changes or any pus coming out and it is not fluctuant. Abdomen: Soft. No hepatosplenomegaly. Extremities: No pedal edema. BORDERER: Patient is alert and oriented. LABORATORY DATA: WBC is 9.76, hemoglobin is 7.6, and platelet count of 340, 000. Chemistry is reviewed and completely normal. Plasma lactate is 0.9. So far the Gram stain from the fistula says gram-positive cocci. ASSESSMENT: Ms. Henley is a sickle cell patient who has an indwelling Mcmanus catheter. Patient was recently discharged from the hospital for Methicillin-sensitive Staphylococcus aureus bacteremia. She was discharged on Ancef. However, she had to come back with what seems to be sepsis. 1. Sepsis likely due to CLABSI, that is central line associated bloodstream infection. The top of the Mcmanus seems to have some pus. This morning it is showing gram- positive cocci. The patient was on Ancef and was having fever so we are concerned if she has developed anything else. We gave her a dose of Cubicin yesterday and we have been giving her ceftriaxone. I plan to continue this and await the final culture from both the central line and also from the peripheral line blood cultures. 2. Sickle cell disease. Patient is frequently in pain. I am not quite sure if she is in painful crisis or if she is just now very addictive to pain medications. she keeps requesting for pain meds meanwhile as soon as you leave her room you can hear her on her phone. 3. Depression. PLAN: We are going to continue with the current antibiotics. We are awaiting the results on the blood cultures. We will give further recommendations during the hospital stay. I did explain to the patient if the cultures are normal will be able to discharge her tomorrow. NELLA
[2016-11-04] MEDS: ROCEPHIN 2 GM/NS 50 ML IV SCH (23:00)
[2016-11-05] MEDS: DILAUDID IV PRN ×7 (02:28→21:01)
[2016-11-05] MEDS: ZOFRAN IV PRN ×2 (05:37→11:53)
[2016-11-05] MEDS: PRILOSEC PO SCH (05:37)
[2016-11-05] MEDS: BENADRYL IV PRN ×3 (05:37→18:01)
--- NOTE | 2016-11-05 06:38 | EKG Report ---
Test Performed on : 11/03/2016 4:36:53 PM Test Reason : CP Blood Pressure : / mmHG Vent. Rate : 082 BPM Atrial Rate : 082 BPM P-R Int : 140 ms QRS Dur : 082 ms QT Int : 390 ms P-R-T Axes : 053 023 005 degrees QTc Int : 455 ms Normal sinus rhythm. Possible Left atrial enlargement Nonspecific T wave abnormality Abnormal ECG When compared with ECG of 06-OCT-2016 18:01, Nonspecific T wave abnormality now evident in Lateral leads Unconfirmed Result
[2016-11-05 07:26] LABS: BASO% 0.4 % (0.0-0.8); EOS# 0.23 X1000 (0.0-0.7); EOS% 2.4 % (0.0-10.0); IMM GRAN# 0.02 X1000 (0.0-0.04); IMM GRAN% 0.2 % (0.0-0.5); LYMPH# 3.16 X1000 (1.2-3.4); LYMPH% 32.5 % (20.5-51.1); MANUAL DIFF NEEDED? NO; MCH 24.8 PG (27-31); MCV 77.4 FL (81-99); MONO# 0.59 X1000 (0.11-0.59); MONO% 6.1 % (1.7-9.3); MPV 8.3 FL (7.4-10.4); NEUT% 58.4 % (42.2-75.2); PLT 342 X1000 (130-400); RBC 3.23 XMIL (4.2-5.4); RETIC% 4.76 % (0.8-2.1); RETIC-HE 23.5 PG (28.2-36.6)
[2016-11-05 07:53] LABS: AGAP 11; BUN 6 mg/dL (8-22); CALCIUM 8.4 mg/dL (8.8-10.2); CHLORIDE 102 mmol/L (98-107); COSMO 272; SODIUM 138 mmol/L (136-145); TCO2 25 mmol/L (25-35)
[2016-11-05] MEDS: DURAGESIC 12 MICROGM/HR PATCH TD SCH (08:56)
[2016-11-05] MEDS: HYDREA PO SCH ×2 (08:56→20:06)
[2016-11-05] MEDS: FOLIC ACID PO SCH (08:56)
[2016-11-05] MEDS: KEFZOL 2 GM/D5W 50 ML IV SCH ×2 (09:45→18:01)
[2016-11-05] MEDS: NS 1,000 ML IV SCH (11:53)
[2016-11-05] MEDS: LOVENOX SUBQ SCH (14:56)
[2016-11-05] MEDS: PHENERGAN IV PRN (18:01)
--- NOTE | 2016-11-05 18:17 | PROGRESS NOTE ---
DATE: 11/05/2016 SUBJECTIVE: The patient is resting comfortably in bed. She states that she is still having some mild chest wall pain at the site of her port but otherwise no discharge. OBJECTIVE: Vital Signs: Temperature 98.4 degrees, blood pressure 140/77, heart rate 69, respirations 22, O2 saturations 99% on room air. General: This is a young female lying comfortably in bed in no acute distress. Head: Normocephalic, atraumatic. Heart: S1, S2. Normal. Regular rate and rhythm. Lungs: Clear to auscultation bilaterally. No wheezes, no rales. No rhonchi. Abdomen: Positive bowel sounds. Soft, nontender, nondistended. Extremities: No edema. No cyanosis. No calf tenderness. Neurologic: The patient is alert and oriented x3. No focal neurologic deficits noted. LABS: Hemoglobin 8, hematocrit 25, platelets 342,000, white blood cell count 9.7, retic count 4.7. Sodium 138, potassium 4, chloride 102, CO2 25, BUN 6, creatinine 0.5, glucose 84. ASSESSMENT AND PLAN: 1. Sickle cell crisis. Continue with IV fluids, folic acid, Hydrea and p.r.n. pain medication. 2. Oxacillin-sensitive Staphylococcus aureus bacteremia secondary to an infected Port-A-Cath. Will continue on Ancef 2 g IV every 8 hours as directed by Dr. Castellanos for 1 more week and then will discontinue. 3. Deep vein thrombosis prophylaxis. Continue on Lovenox.
[2016-11-06] MEDS: DILAUDID IV PRN ×7 (00:20→21:55)
[2016-11-06] MEDS: KEFZOL 2 GM/D5W 50 ML IV SCH ×3 (00:20→17:54)
[2016-11-06] MEDS: PHENERGAN IV PRN ×2 (00:24→16:00)
[2016-11-06] MEDS: BENADRYL IV PRN ×4 (00:24→18:56)
[2016-11-06] MEDS: NS 1,000 ML IV SCH ×2 (01:20→17:54)
[2016-11-06] MEDS: PRILOSEC PO SCH ×2 (06:17)
[2016-11-06] MEDS: ZOFRAN IV PRN ×2 (06:19→21:55)
[2016-11-06 07:06] LABS: HEMATOCRIT 24.3 % (37.0-47.0); HEMOGLOBIN 7.9 g/dL (12.0-16.0); MCH 25.1 PG (27-31); MCHC 32.5 g/dL (33-37); MCV 77.1 FL (81-99); MPV 8.4 FL (7.4-10.4); RBC 3.15 XMIL (4.2-5.4); RETIC% 5.22 % (0.8-2.1); RETIC-HE 22.4 PG (28.2-36.6)
[2016-11-06 07:22] LABS: AGAP 11; BUN 7 mg/dL (8-22); CALCIUM 8.6 mg/dL (8.8-10.2); CHLORIDE 101 mmol/L (98-107); COSMO 273; POTASSIUM 4.1 mmol/L (3.5-5.1); SODIUM 138 mmol/L (136-145); TCO2 26 mmol/L (25-35)
[2016-11-06] MEDS: FOLIC ACID PO SCH (09:27)
[2016-11-06] MEDS: DURAGESIC 12 MICROGM/HR PATCH TD SCH (09:27)
[2016-11-06] MEDS: HYDREA PO SCH ×2 (09:27→21:47)
[2016-11-06] MEDS ORDERED: EMLA CREAM TOP ONE (10:22)
[2016-11-06] MEDS: LOVENOX SUBQ SCH (16:07)
--- NOTE | 2016-11-06 16:55 | PROGRESS NOTE ---
DATE: 11/06/2016 SUBJECTIVE: The patient is resting comfortably in bed. She complains of some mild tenderness at the site of her port but otherwise no other complaints. OBJECTIVE: Vital Signs: Temperature 98 degrees, blood pressure 129/63, heart rate 86, respirations 18, O2 saturations 100% on room air. General: This is a young female, lying comfortably in bed, in no acute distress. Head: Normocephalic atraumatic. Heart: S1, S2. Normal. Regular rate and rhythm. Lungs: Clear to auscultation bilaterally. No wheezes, no rales. No rhonchi. Abdomen: Positive bowel sounds. Soft, nontender, nondistended. Extremities: No edema. No cyanosis. No calf tenderness. LABS: White blood cell count 10, hemoglobin 7.9, hematocrit 24, platelets 306,000. Reticulocyte count 5.2, sodium 138, potassium 4.1, chloride 101, CO2 29, BUN 7, creatinine 0.5, glucose 84. ASSESSMENT AND PLAN: 1. Sickle cell crisis. Continue on IV fluids, Hydrea, and folic acid. 2. Oxacillin sensitive Staphylococcus aureus bacteremia secondary to an infected Port-A-Cath. Continue on Ancef 2 g IV every 8 hours. The patient's last day of antibiotics will be on SaturdayNovember 12. 3. Deep vein thrombosis prophylaxis. Continue on Lovenox.
[2016-11-07] MEDS: KEFZOL 2 GM/D5W 50 ML IV SCH ×3 (01:03→17:56)
[2016-11-07] MEDS: BENADRYL IV PRN ×4 (01:05→22:12)
[2016-11-07] MEDS: DILAUDID IV PRN ×7 (01:05→22:12)
[2016-11-07] MEDS: NS 1,000 ML IV SCH ×3 (04:21→22:12)
[2016-11-07] MEDS: ZOFRAN IV PRN (04:37)
[2016-11-07] MEDS: PRILOSEC PO SCH (06:10)
[2016-11-07 07:05] LABS: HEMATOCRIT 23.3 % (37.0-47.0); HEMOGLOBIN 7.6 g/dL (12.0-16.0); MCH 25.2 PG (27-31); MCHC 32.6 g/dL (33-37); MCV 77.2 FL (81-99); MPV 8.3 FL (7.4-10.4); RBC 3.02 XMIL (4.2-5.4); RETIC% 5.8 % (0.8-2.1); RETIC-HE 23.3 PG (28.2-36.6)
[2016-11-07] MEDS: FOLIC ACID PO SCH (09:09)
[2016-11-07] MEDS: DURAGESIC 12 MICROGM/HR PATCH TD SCH (09:09)
[2016-11-07] MEDS: HYDREA PO SCH ×3 (09:09→22:12)
[2016-11-07] MEDS: PHENERGAN IV PRN ×2 (12:20→18:52)
--- NOTE | 2016-11-07 15:45 | PROGRESS NOTE ---
DATE: 11/07/2016 SUBJECTIVE: The patient is resting comfortably in bed. She has no complaints. OBJECTIVE: Vital Signs: Temperature 97 degrees, blood pressure 132/78, heart rate 79, respirations 18 and O2 saturations 100% on room air. General: This is a young female lying comfortably in bed in no acute distress. HEENT: Head normocephalic and atraumatic. Heart: S1, S2. Normal. Regular rate and rhythm. Lungs: Clear to auscultation bilaterally. No wheezes. No rales. No rhonchi. Abdomen: Positive bowel sounds. Soft, nontender and nondistended. Extremities: No edema. No cyanosis. No calf tenderness. Neurologic: The patient is alert and oriented x3. No focal neurologic deficits noted. LABORATORY: White blood cell count 10, hemoglobin 7.6, hematocrit 23 and platelets 279,000. Retic count 5.8. ASSESSMENT AND PLAN: 1. Sickle cell crisis. Will continue on the current management. 2. Oxacillin-sensitive Staphylococcus aureus bacteremia secondary to an infected Port-A-Cath. Continue on Ancef 2 g IV every 8 hours. 3. Deep vein thrombosis prophylaxis. Continue on Lovenox.
[2016-11-07] MEDS: LOVENOX SUBQ SCH (17:56)
[2016-11-08] MEDS: SODIUM CHLORIDE 0.9% INJ PRN ×3 (01:08→21:58)
[2016-11-08] MEDS: PHENERGAN IV PRN ×4 (01:08→21:59)
[2016-11-08] MEDS: DILAUDID IV PRN ×7 (01:09→21:59)
[2016-11-08] MEDS: KEFZOL 2 GM/D5W 50 ML IV SCH ×3 (01:15→17:24)
[2016-11-08] MEDS: BENADRYL IV PRN ×3 (05:23→18:43)
[2016-11-08] MEDS: PRILOSEC PO SCH (06:42)
[2016-11-08] MEDS: NS 1,000 ML IV SCH ×3 (06:43→22:48)
[2016-11-08 07:15] LABS: HEMATOCRIT 23.1 % (37.0-47.0); HEMOGLOBIN 7.6 g/dL (12.0-16.0); MCH 25.1 PG (27-31); MCHC 32.9 g/dL (33-37); MCV 76.2 FL (81-99); MPV 8.4 FL (7.4-10.4); RBC 3.03 XMIL (4.2-5.4); RETIC% 6.86 % (0.8-2.1); RETIC-HE 23.3 PG (28.2-36.6)
[2016-11-08] MEDS: FOLIC ACID PO SCH (09:15)
[2016-11-08] MEDS: HYDREA PO SCH ×2 (09:15→22:00)
[2016-11-08] MEDS: DURAGESIC 12 MICROGM/HR PATCH TD SCH (09:16)
[2016-11-08] MEDS: LOVENOX SUBQ SCH (14:19)
--- NOTE | 2016-11-08 18:22 | PROGRESS NOTE ---
DATE: 11/08/2016 SUBJECTIVE: The patient states that she has less tenderness at her port site. She has no complaints at this time. OBJECTIVE: Vital Signs: Temperature 98.6, blood pressure 132/67, heart rate 85, respirations 18, O2 saturations 100% on room air. General: This is a young female, lying in bed, in no acute distress. Head: Normocephalic, atraumatic. Heart: S1, S2. Normal. Regular rate and rhythm. Lungs: Clear to auscultation bilaterally. No wheezing, no rales. No rhonchi. Abdomen: Positive bowel sounds. Soft, nontender, nondistended. Extremities: No edema. No cyanosis. No calf tenderness. Neurologic: The patient is alert and oriented x3. LABS: White blood cell count 7.6, hemoglobin 23, platelets 248. Reticulocyte count 6.8. ASSESSMENT AND PLAN: 1. Sickle cell crisis. Continue on IV fluids, Hydrea, folic acid and p.r.n. pain medication. 2. Oxacillin sensitive Staphylococcus aureus bacteremia secondary to an infected Port-A-Cath. Continue on Ancef 2 g IV every 8 hours. The patient will complete IV antibiotic therapy on Saturday. 3. Deep vein thrombosis prophylaxis. Continue on Lovenox.
[2016-11-09] MEDS: NS 1,000 ML IV SCH ×3 (00:58→20:13)
[2016-11-09] MEDS: BENADRYL IV PRN ×3 (00:58→13:52)
[2016-11-09] MEDS: DILAUDID IV PRN ×8 (00:58→23:12)
[2016-11-09] MEDS: KEFZOL 2 GM/D5W 50 ML IV SCH ×3 (01:18→17:05)
[2016-11-09] MEDS: SODIUM CHLORIDE 0.9% INJ PRN ×2 (04:01→09:59)
[2016-11-09] MEDS: PHENERGAN IV PRN ×3 (04:01→17:04)
[2016-11-09 07:14] LABS: HEMATOCRIT 23.3 % (37.0-47.0); HEMOGLOBIN 7.7 g/dL (12.0-16.0); MCH 25.6 PG (27-31); MCV 77.4 FL (81-99); MPV 8.4 FL (7.4-10.4); RBC 3.01 XMIL (4.2-5.4)
[2016-11-09] MEDS: HYDREA PO SCH ×2 (09:59→20:13)
[2016-11-09] MEDS: DURAGESIC 12 MICROGM/HR PATCH TD SCH (10:00)
[2016-11-09] MEDS: FOLIC ACID PO SCH (10:00)
[2016-11-09] MEDS: LOVENOX SUBQ SCH ×2 (13:52→16:03)
--- NOTE | 2016-11-09 15:35 | PROGRESS NOTE ---
DATE: 11/09/2016 SUBJECTIVE: The patient is resting comfortably in bed. No acute events noted overnight. OBJECTIVE: Vital Signs: Temperature 98.6, blood pressure 128/52, heart rate 103, respirations 20, O2 saturations 100% on room air. General: This is a young female, lying in bed, in no acute distress. Head: Normocephalic, atraumatic. Heart: S1, S2. Normal. Regular rate and rhythm. Lungs: Clear to auscultation bilaterally. No wheezing, rubs or rhonchi. Abdomen: Positive bowel sounds. Soft, nontender, nondistended. Extremities: No edema. No cyanosis. No calf tenderness. Neurological: Patient is alert and oriented x3. LABS: White blood cell count 10, hemoglobin 7.7, hematocrit 23, platelets 232. ASSESSMENT AND PLAN: 1. Sickle cell crisis. Continue on the current regimen. 2. Oxacillin sensitive Staphylococcus aureus bacteremia secondary to infected Port-A-Cath. Continue on Ancef 2 g IV every 8 hours. 3. Right middle lobe cavitary lesion. This finding was discussed with who recommended continuing the Ancef as ordered. 4. Deep vein thrombosis prophylaxis. Continue [facility] Lovenox. [facility]
--- NOTE | 2016-11-09 19:05 | Diag Imaging Result Document ---
PROCEDURE NAME: CT THORAX W/O CONTRAST - 11/09/2016 CT OF THE CHEST WITHOUT CONTRAST: COMPARISON: The current study is compared with that of 10/12/2015. FINDINGS: There are a number of nodular opacities present in both lungs which were not visible on the previous examination. One such opacity is present posteriorly in the right upper lobe on image 30. There is a cavitary lesion laterally in the right middle lobe on image 60. There is a nodule present in the posterior costophrenic sulcus of the left lower lobe on image 91. There is a tiny pleural-based nodule in the left lower lobe on image 61. There is a Port -A-Cath on the right. There are no abnormal fluid collections. There is no definite evidence of significant adenopathy. There are some dense calcifications or foreign bodies present in the left innominate vein seen on images 26 and 32. These were not visible on the previous study of 10/12/2015. IMPRESSION: Given the history of an infected port, the possibility of septic emboli is suggested particularly with regard to the cavitary lesion in the right middle lobe. The findings were discussed with Dr. Napier by telephone at [phone]. [facility]ITAL[facility]
[2016-11-10] MEDS: KEFZOL 2 GM/D5W 50 ML IV SCH ×3 (00:19→18:45)
[2016-11-10] MEDS: NS 1,000 ML IV SCH ×2 (01:59→12:23)
[2016-11-10] MEDS: DILAUDID IV PRN ×7 (02:25→21:44)
[2016-11-10] MEDS: BENADRYL IV PRN ×3 (02:25→15:32)
[2016-11-10] MEDS: PHENERGAN IV PRN ×2 (06:14→12:23)
[2016-11-10] MEDS: SODIUM CHLORIDE 0.9% INJ PRN (06:14)
[2016-11-10] MEDS: PRILOSEC PO SCH ×2 (06:20→09:18)
[2016-11-10 07:19] LABS: BASO% 0.3 % (0.0-0.8); EOS# 0.18 X1000 (0.0-0.7); EOS% 2.3 % (0.0-10.0); HEMATOCRIT 23.9 % (37.0-47.0); HEMOGLOBIN 7.8 g/dL (12.0-16.0); IMM GRAN# 0.03 X1000 (0.0-0.04); IMM GRAN% 0.4 % (0.0-0.5); LYMPH# 2.13 X1000 (1.2-3.4); LYMPH% 27.6 % (20.5-51.1); MANUAL DIFF NEEDED? NO; MCH 25.2 PG (27-31); MCHC 32.6 g/dL (33-37); MCV 77.1 FL (81-99); MONO% 7.8 % (1.7-9.3); MPV 8.4 FL (7.4-10.4); NEUT% 61.6 % (42.2-75.2); PLT 193 X1000 (130-400)
[2016-11-10 07:29] LABS: AGAP 11; BUN 6 mg/dL (8-22); CALCIUM 8.7 mg/dL (8.8-10.2); CHLORIDE 100 mmol/L (98-107); COSMO 273; SODIUM 138 mmol/L (136-145); TCO2 27 mmol/L (25-35)
[2016-11-10] MEDS: FOLIC ACID PO SCH (09:18)
[2016-11-10] MEDS: HYDREA PO SCH ×2 (09:18→20:03)
[2016-11-10] MEDS: DURAGESIC 12 MICROGM/HR PATCH TD SCH (09:19)
[2016-11-10] MEDS: LOVENOX SUBQ SCH (15:32)
--- NOTE | 2016-11-10 17:00 | PROGRESS NOTE ---
DATE: 11/10/2016 SUBJECTIVE: The patient is resting comfortably in bed. She has no complaints at this time. OBJECTIVE: Vital Signs: Temperature 98.7 degrees, blood pressure 111/67, heart rate 93, respirations 19, O2 saturations 99% on room air. General: This is a young female, lying in bed, in no acute distress. Head: Normocephalic atraumatic. Heart: S1, S2. Normal. Regular rate and rhythm. Lungs: Clear to auscultation bilaterally. No wheezes, no rales. No rhonchi. Abdomen: Positive bowel sounds. Soft, nontender, nondistended. Extremities: No edema. No cyanosis. Neurologic: The patient is alert and oriented x3. LABS: White blood cell count 7.7, hemoglobin 7.8, hematocrit 23, platelets 193,000. Sodium 138, potassium 4, chloride 100, CO2 27, BUN 6, creatinine 0.4, glucose 88. ASSESSMENT AND PLAN: 1. Sickle cell crisis. Continue on IV fluids, IV pain medication as well as the Hydrea and folic acid. 2. Oxacillin sensitive Staphylococcus aureus bacteremia. The first set of blood cultures drawn on admission are negative at this time. Continue on Ancef 2 g IV every 8 hours. The patient will complete this regimen on Saturday. 3. Deep vein thrombosis prophylaxis. Continue on Lovenox.
[2016-11-10] MEDS: ZOFRAN IV PRN (18:45)
[2016-11-11] MEDS: BENADRYL IV PRN ×4 (00:40→23:36)
[2016-11-11] MEDS: KEFZOL 2 GM/D5W 50 ML IV SCH ×3 (00:40→16:53)
[2016-11-11] MEDS: DILAUDID IV PRN ×8 (00:44→23:36)
[2016-11-11] MEDS: NS 1,000 ML IV SCH ×2 (00:46→16:52)
[2016-11-11] MEDS: PRILOSEC PO SCH (06:00)
[2016-11-11 07:12] LABS: BASO% 0.2 % (0.0-0.8); EOS# 0.24 X1000 (0.0-0.7); EOS% 2.8 % (0.0-10.0); HEMATOCRIT 22.9 % (37.0-47.0); HEMOGLOBIN 7.5 g/dL (12.0-16.0); LYMPH# 2.79 X1000 (1.2-3.4); LYMPH% 32.3 % (20.5-51.1); MANUAL DIFF NEEDED? YES; MCH 25.3 PG (27-31); MCHC 32.8 g/dL (33-37); MCV 77.1 FL (81-99); MONO# 0.69 X1000 (0.11-0.59); MPV 8.7 FL (7.4-10.4); NEUT% 56.7 % (42.2-75.2); PLT 170 X1000 (130-400); RBC 2.97 XMIL (4.2-5.4)
[2016-11-11 07:24] LABS: AGAP 10; BUN 5 mg/dL (8-22); CALCIUM 8.6 mg/dL (8.8-10.2); CHLORIDE 102 mmol/L (98-107); COSMO 272; POTASSIUM 4.1 mmol/L (3.5-5.1); SODIUM 138 mmol/L (136-145); TCO2 26 mmol/L (25-35)
[2016-11-11 07:50] LABS: EOS 2 % (1-10); LYMPHS 38 % (21-51); MONO 8 % (1-9)
[2016-11-11 07:51] LABS: HYPOCHROM 1+; POLYCHROM 1+; TARGET CELLS 3+
[2016-11-11] MEDS: HYDREA PO SCH ×2 (08:13→20:18)
[2016-11-11] MEDS: FOLIC ACID PO SCH (08:13)
[2016-11-11] MEDS: ZOFRAN IV PRN ×2 (08:13→14:28)
[2016-11-11] MEDS: DURAGESIC 12 MICROGM/HR PATCH TD SCH (08:14)
--- NOTE | 2016-11-11 14:28 | PROGRESS NOTE ---
DATE: 11/11/2016 SUBJECTIVE: The patient reports that she feels okay today. She is afebrile. No acute events noted overnight. OBJECTIVE: Vital Signs: Temperature 98.3 degrees, blood pressure 147/77, heart rate 93, respirations 20, O2 saturations 100% on room air. General: This is a young female, lying comfortably in bed, in no acute distress. Head: Normocephalic, atraumatic. Heart: S1, S2. Normal. Tachycardic. Lungs: Clear to auscultation bilaterally. No wheezes. No rales. No rhonchi. Abdomen: Positive bowel sounds. Soft, nontender, nondistended. Extremities: No edema. No cyanosis. No calf tenderness. Neurologic: The patient is alert and oriented x3. No focal neurologic deficits noted. LABS: White blood cell count 8.6, hemoglobin 7.5, hematocrit 22, platelets 179,000. Sodium 138, potassium 4.1, chloride 102, CO2 26, BUN 5, creatinine 0.4, glucose 88. ASSESSMENT AND PLAN: 1. Sickle cell crisis. Improved. Continue on IV fluids, IV pain medication, Hydrea, and folic acid. 2. Oxacillin-sensitive Staphylococcus aureus bacteremia. Tomorrow will be the last day of treatment with Ancef as per Dr. Castellanos. He states that he wants the patient to then be started on Keflex 500 mg p.o. every 12 hours indefinitely. 3. Right middle lobe cavitary lesion. Aware. Continue on antibiotic therapy as directed by Dr. Castellanos. 4. Deep vein thrombosis prophylaxis. Continue on Lovenox. 5. The patient has been advised to ambulate as much as possible.
[2016-11-11] MEDS: LOVENOX SUBQ SCH (16:52)
[2016-11-11] MEDS: PHENERGAN IV PRN (20:18)
[2016-11-11] MEDS: SODIUM CHLORIDE 0.9% INJ PRN (20:21)
[2016-11-12] MEDS: KEFZOL 2 GM/D5W 50 ML IV SCH ×3 (01:16→18:09)
[2016-11-12] MEDS: DILAUDID IV PRN ×7 (02:49→21:58)
[2016-11-12] MEDS: SODIUM CHLORIDE 0.9% INJ PRN ×4 (02:49→21:59)
[2016-11-12] MEDS: PHENERGAN IV PRN ×4 (02:50→21:59)
[2016-11-12] MEDS: NS 1,000 ML IV SCH ×3 (06:09→21:57)
[2016-11-12] MEDS: BENADRYL IV PRN ×3 (06:10→19:11)
[2016-11-12] MEDS: PRILOSEC PO SCH (06:17)
[2016-11-12 07:18] LABS: BASO% 0.2 % (0.0-0.8); EOS# 0.25 X1000 (0.0-0.7); EOS% 2.5 % (0.0-10.0); HEMOGLOBIN 7.5 g/dL (12.0-16.0); LYMPH# 3.14 X1000 (1.2-3.4); LYMPH% 31.8 % (20.5-51.1); MANUAL DIFF NEEDED? YES; MCH 25.2 PG (27-31); MCHC 32.6 g/dL (33-37); MCV 77.2 FL (81-99); MONO# 0.83 X1000 (0.11-0.59); MONO% 8.4 % (1.7-9.3); MPV 8.9 FL (7.4-10.4); NEUT% 57.1 % (42.2-75.2); PLT 178 X1000 (130-400); RBC 2.98 XMIL (4.2-5.4); RETIC% 6.08 % (0.8-2.1); RETIC-HE 23.5 PG (28.2-36.6)
[2016-11-12 07:24] LABS: AGAP 12; BUN 9 mg/dL (8-22); CALCIUM 8.9 mg/dL (8.8-10.2); CHLORIDE 101 mmol/L (98-107); COSMO 276; POTASSIUM 4.3 mmol/L (3.5-5.1); SODIUM 139 mmol/L (136-145); TCO2 26 mmol/L (25-35)
[2016-11-12] MEDS: DURAGESIC 12 MICROGM/HR PATCH TD SCH (09:22)
[2016-11-12] MEDS: FOLIC ACID PO SCH (09:24)
[2016-11-12] MEDS: HYDREA PO SCH ×2 (09:24→21:58)
--- NOTE | 2016-11-12 17:11 | PROGRESS NOTE ---
DATE: 11/12/2016 SUBJECTIVE: Patient has no focal complaints, just her kind of chronic pain issues. OBJECTIVE: Vital signs: Blood pressure 121/63, heart rate of 80, respiratory 18, temperature 98 degrees. She has been afebrile. Cardiovascular: Regular rate and rhythm. Pulmonary: Bilateral breath sounds. Clear to auscultation. GI: Soft, nontender, nondistended. Bowel sounds are positive. LABORATORY DATA: Hemoglobin and hematocrit was 7.5 and 23. White count is normal. Chemistries look okay. She had a fistula, I am assuming that is probably from her port. She had interestingly still MSSA and currently she is on cefazolin 2 g q.8 and appears to be stable. ASSESSMENT: 1. Port infection. Still trying to treat through the port, although this is the 2nd time I feel like she has had this infection. However, there is not really a lot of amenable sources for IV access for her. She has a cavitary pneumonia as well for which she is on antibiotics and she will be transitioned to oral antibiotics anticipated tomorrow, 11/13. 2. Sickle cell crisis. She is currently on her regular medications. 3. Disposition. Hopefully home tomorrow if stable. We will continue to follow.
[2016-11-12] MEDS: LOVENOX SUBQ SCH (18:09)
[2016-11-13] MEDS: KEFZOL 2 GM/D5W 50 ML IV SCH ×2 (00:09→09:10)
[2016-11-13] MEDS: DILAUDID IV PRN ×6 (01:50→16:39)
[2016-11-13] MEDS: BENADRYL IV PRN ×3 (01:51→14:09)
[2016-11-13] MEDS: NS 1,000 ML IV SCH (01:53)
[2016-11-13] MEDS: SODIUM CHLORIDE 0.9% INJ PRN ×2 (04:40→11:02)
[2016-11-13] MEDS: PHENERGAN IV PRN ×3 (04:40→16:40)
[2016-11-13] MEDS: PRILOSEC PO SCH (04:40)
[2016-11-13 07:58] LABS: BASO% 0.3 % (0.0-0.8); EOS# 0.36 X1000 (0.0-0.7); EOS% 3.5 % (0.0-10.0); HEMATOCRIT 21.5 % (37.0-47.0); IMM GRAN# 0.02 X1000 (0.0-0.04); IMM GRAN% 0.2 % (0.0-0.5); LYMPH# 3.32 X1000 (1.2-3.4); LYMPH% 32.3 % (20.5-51.1); MANUAL DIFF NEEDED? NO; MCH 25.2 PG (27-31); MCHC 32.6 g/dL (33-37); MCV 77.3 FL (81-99); MONO# 0.77 X1000 (0.11-0.59); MONO% 7.5 % (1.7-9.3); MPV 8.7 FL (7.4-10.4); NEUT% 56.2 % (42.2-75.2); PLT 170 X1000 (130-400); RBC 2.78 XMIL (4.2-5.4); RETIC% 5.83 % (0.8-2.1); RETIC-HE 23.5 PG (28.2-36.6)
[2016-11-13] MEDS: HYDREA PO SCH (09:10)
[2016-11-13] MEDS: FOLIC ACID PO SCH (09:10)
[2016-11-13] MEDS ORDERED: DURAGESIC 12 MICROGM/HR PATCH TD SCH (10:00)
[2016-11-13 13:57] VITALS: BP 149/92
[2016-11-13] MEDS ORDERED: HEPARIN ONE (16:42)
--- NOTE | 2016-11-13 20:18 | DISCHARGE SUMMARY ---
ADMISSION DATE: 11/03/2016 DISCHARGE DATE: 11/13/2016 CONSULTATIONS: None. PERTINENT PROCEDURES: Chest CT showed, given the history of infected port, the possibility of septic embolic is suggested, particularly with regard to the cavitary lesion in the right middle lobe. Findings were discussed with Dr. Napier on 11/09/2016. DISCHARGE DIAGNOSES: 1. Sickle cell crisis, improved. 2. Oxacillin-sensitive Staphylococcus aureus bacteremia. Patient finished full course of IV antibiotics and will start on Keflex 500 mg every 12 hours indefinitely. She will follow up with Dr. Castellanos. 3. Right middle lobe cavitary lesion. Aware. Antibiotic therapy as per Dr. Castellanos. HOSPITAL COURSE: Briefly, Ms. Henley is a 21-year-old female well known to our service with a history of sickle cell disease with painful flares every 2-3 months. She has a right-sided chest port that she had been receiving IV antibiotics, Ancef, for oxacillin bacteremia, being treated with Ancef at home every 8 hours. She was followed by [facility], however, speaking with the briefcase sewer and social workers, whether they continue on the end or home health or whom she is followed by under her Medicaid. The patient is extremely hard to get a hold of and is noncompliant and refuses services. The patient came to the ED with complaints of subjective fever with chills, increasing pain in her back and hip. Her workup revealed a fever of 100.2. She was tachycardic at a rate of 100 to one teens with a white cell count of 10,000. Nurses did observe that the site was oozy. The access was removed and de- accessed. It was noted that there was purulent yellow exudate mixed with blood that began draining from the needle penetration area. The exudate was collected for sample and was sent for culture. The patient was started with a one time dose of Cubicin and scheduled Rocephin as well as treating her pain process. The patient's cultures amiodarone Gram stain both grew out staph aureus. Blood cultures, both sets, had no growth. The patient was initially placed back on her Kefzol for the duration of her treatment. The patient was kept here through 11/13/2016 where she finished all IV antibiotics. The patient will be placed on Kefzol every 12 hours indefinitely. She is appropriate for discharge home today. Her sickle cell crisis has resolved. Her pain is controlled. The patient is being discharged back home today. Vital signs: Temperature 98, heart rate 109, respirations 16, blood pressure 149/92, O2 saturation is 100% on room air. DISCHARGE MEDICATIONS: 1. Hydroxyurea 500 mg p.o. b.i.d. 2. Fentanyl patch 12.5 patch topical as directed. 3. Folic acid 1 mg p.o. daily. 4. Carnegie 10/325 one p.o. every 8 hours p.r.n. 5. Keflex 500 mg p.o. b.i.d. FOLLOWUP: The patient will need to follow up with Dr. Audi Castellanos in 2 weeks. The patient can return to the ED for any worsening of symptoms. DISCHARGE TIME: Greater than 30 minutes. Dictated by CORRINA Shetty for Tony Marshall MD Addendum: I have evaluated and examined the patient in conjunction to the ARMORED CAR GUARD AND DRIVER and agreed with her disposition. NELLA
[2016-11-16] MEDS ORDERED: DURAGESIC 12 MICROGM/HR PATCH TD SCH (09:00)
== END 2016-11-13 16:50 | disposition home or self-care (01) | DRG 314 ==
LOC: ED 15:02 → 3N 18:47
PROVIDERS: ATTEND Internal Medicine
DX: T80.211A Bloodstream infection due to central venous catheter, initial encounter (principal); D57.00 Hb-SS disease with crisis, unspecified; R78.81 Bacteremia; F32.9 Major depressive disorder, single episode, unspecified; J45.909 Unspecified asthma, uncomplicated; Z91.19 Patient's noncompliance with other medical treatment and regimen; Z79.899 Other long term (current) drug therapy; Z79.891 Long term (current) use of opiate analgesic; E80.6 Other disorders of bilirubin metabolism; J98.4 Other disorders of lung; B95.61 Methicillin susceptible Staphylococcus aureus infection as the cause of diseases classified elsewhere
CPT/HCPCS: 71020; 71250; 80048; 80053; 81001; 81025; 82550; 83605; 83735; 85025; 85027; 85045; 85610; 85730; 87040; 87070; 87077; 87186; 93005; 96374; 96375; 96376; J0690; J0696; J0878; J1170; J1200; J1650; J2405; J2550; J7030; S0176

== ENCOUNTER 2016-12-22 15:44 | Inpatient (IN) ==
[2016-12-22 18:11] LABS: BASO% 0.4 % (0.0-0.8); EOS# 0.33 X1000 (0.0-0.7); EOS% 2.4 % (0.0-10.0); HEMATOCRIT 24.8 % (37.0-47.0); HEMOGLOBIN 8.1 g/dL (12.0-16.0); IMM GRAN# 0.04 X1000 (0.0-0.04); IMM GRAN% 0.3 % (0.0-0.5); LYMPH# 3.81 X1000 (1.2-3.4); LYMPH% 28.1 % (20.5-51.1); MANUAL DIFF NEEDED? YES; MCH 25.5 PG (27-31); MCHC 32.7 g/dL (33-37); MONO# 0.69 X1000 (0.11-0.59); MONO% 5.1 % (1.7-9.3); NEUT% 63.7 % (42.2-75.2); PLT 250 X1000 (130-400); RBC 3.18 XMIL (4.2-5.4); RETIC% 5.41 % (0.8-2.1); RETIC-HE 24.2 PG (28.2-36.6)
[2016-12-22] MEDS ORDERED: DILAUDID IV ONE ×2 (19:07→23:15)
[2016-12-22] MEDS ORDERED: ZOFRAN IV ONE (19:09)
[2016-12-22] MEDS: KEFZOL 1 GM/D5W 1 GM/50 ML IVPB IV SCH (20:58)
[2016-12-22] MEDS ORDERED: BENADRYL PO ONE (23:16)
[2016-12-22] MEDS ORDERED: BENADRYL ONE (23:22)
[2016-12-22] MEDS ORDERED: NORCO-10 PO PRN (23:39)
[2016-12-22] MEDS ORDERED: TORADOL IV PRN (23:39)
[2016-12-22] MEDS ORDERED: TYLENOL PO PRN (23:39)
[2016-12-23] MEDS: LOVENOX SUBQ SCH (00:16)
[2016-12-23 00:18] LABS: AGAP 13; ALKALINE PHOSPHATASE 127 U/L (32-104); BUN 11 mg/dL (8-22); CALCIUM 8.8 mg/dL (8.8-10.2); CHLORIDE 104 mmol/L (98-107); COSMO 278; GOT 22 U/L (10-30); GPT 14 U/L (10-36); POTASSIUM 4.2 mmol/L (3.5-5.1); SODIUM 140 mmol/L (136-145); TCO2 23 mmol/L (25-35); TOTAL PROTEIN 7.2 g/dL (6.3-8.3)
[2016-12-23] MEDS: NS 1,000 ML IV SCH ×3 (00:18→17:51)
[2016-12-23] MEDS ORDERED: CUBICIN (FOR INPATIENT USE) 600 MG in NS 100 ML IV ONE (01:00)
--- NOTE | 2016-12-23 02:03 | HISTORY AND PHYSICAL ---
REASON FOR ADMISSION: Right-sided chest pain and fever. HISTORY OF PRESENT ILLNESS: Ms Henley is a 21-year-old lady, who was recently discharged from our facility following Mediport infection, secondary to MSSA, complicated by bacteremia. She was received full course of treatment with Ancef provided by [facility] at home. Last admission, the port was removed, and a few days later she had a new port placed on the left pectoral area. Today, the patient comes in complaining of pain in the right pectoral area where her previous Mediport site, and noticed some pus emanating from where the stitches were 2 days ago. This concerned her, and she came in today, primarily because she had a temp of 102 at home. On arrival here, her vital signs are as follows. Her temp was 98.3, heart rate was 82, respirations 18, blood pressure 106/62, 100% on room air. REVIEW OF SYSTEMS: Also is notable for sharp back pain, which she says is consistent with her crisis pain. The aforementioned pain noted in the right pectoral area is described as achy, intermittent, and worse with movement when she had the stitches in place. Sutures were removed in the ER and some small purulent material was noted at the stitch sites. Twelve system review is negative, positive findings per HPI. No arthralgias, rash, chills. No genitourinary or GI complaints. No neurological complaints. No musculoskeletal complaints. No polyuria polydipsia. No headache.Neck: Stiffness. No cough, shortness of breath or cardiorespiratory complaints. ALLERGIES: Latex, Demerol, vancomycin and morphine. FAMILY HISTORY: She has several first degree relatives with sickle cell. No heart disease, diabetes or cancer in first degree relatives. SURGICAL HISTORY: Cholecystectomy, port placement and removal. SOCIAL: Does not smoke, drink or use drugs. 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 LAB WORK: White count 13,000, hemoglobin and hematocrit 8 and 24, MCV 78, platelets 250,000 with mild left shift. Chemistry, urine and chest film are pending at this time. EXAMINATION: General: Young woman who is in no overt distress. She is alert and oriented to person, time with normal mood and affect. HEENT: Head is normocephalic, atraumatic. Eyes: ALE, EOMI. She is anicteric, but pale. ENT and oropharynx exam is grossly normal. Neck: Supple. No JVD or carotid bruit. No thyromegaly. Lymphs: The cervical and supraclavicular lymph nodes are negative. Chest: Clear to auscultation with good air entry in both lung farmer. The patient has a Mediport placed in the left pectoral area. She also has an old, previous Mediport site in the right inframammary area. No redness or swelling. I could not express any pus. She does state that when I push very hard on it, it is tender. No fluctuance appreciated. No crepitus noted. Cardiovascular: First and second heart sounds heard. No gallops, murmurs or rubs. Rhythm is regular. Abdomen: Soft, nontender. No mass or organomegaly. Bowel sounds are normal. Rectal: Deferred at this time. Extremities: Neurovascularly intact. No edema, clubbing or cyanosis. Neurologic: Grossly intact. No focal deficits. Skin: Intact with no overt breakdown. Musculoskeletal: Grossly normal. Other findings noted as above. ASSESSMENT: 1. Probable Staph infection, MRSA versus MSSA. Blood cultures have been drawn and will be followed. She will be given 1 dose of Ancef but I am taking the liberty of adding on daptomycin due to the fact that she probably may have been colonized during her extended stay in the hospital. We will consult ID to see patient for further input. Does not portray any symptoms of excessive endocarditis at this time. 2. Sickle cell disease. I do not feel this patient is in active crisis at this point in time. Reticulocyte count was low, white count not any higher than normal. We will continue with supportive care and IV fluid resuscitation. 3. Anemia, pretty much consistent with her usual baseline. Nothing to be done at this time. We will follow CBC in the morning however. cc: Blossom Wills MD
[2016-12-23] MEDS: DILAUDID IV PRN ×6 (02:38→20:54)
[2016-12-23] MEDS: DURAGESIC 12 MICROGM/HR PATCH TD SCH (03:31)
[2016-12-23] MEDS: KEFZOL 1 GM/D5W 1 GM/50 ML IVPB IV SCH ×3 (03:31→20:42)
--- NOTE | 2016-12-23 06:02 | PROVIDER DOCUMENTATION ---
This chart was entered by Judd Church Scribe, acting as scribe for Burt Cabrera MD. HPI-General Adult - General Chief Complaint: Sickle Cell Crisis Stated Complaint: SICKLE CELL PAIN/FEVER Time Seen by Provider: 12/22/16 18:22 Source: patient Allergies/Adverse Reactions: Patient Allergies Allergy/AdvReac Type Severity Reaction Status Date / Time latex Allergy Mild RASH Verified 12/22/16 17:42 meperidine HCl * AdvReac Severe SHORTNESS Verified 12/22/16 17:42 [From Demerol] OF BREATH; AND HEADACHE vancomycin AdvReac Severe RASH Verified 12/22/16 17:42 morphine AdvReac Mild HEADACHE Verified 12/22/16 17:42 AND HIVES Home Medications: Home Medication List Medication Instructions Recorded Confirmed Last Taken Type Hydroxyurea 500 mg PO BID 06/17/16 12/22/16 12/22/16 History Folic Acid 1 mg PO DAILY #30 tablet 09/14/16 12/22/16 11/23/16 Rx Fentanyl 12 Microgm/Hr Patch 1 each TD Q72H #0 patch 12/10/16 12/22/16 12/19/16 Rx [Duragesic 12 Microgm/Hr Patch] Hydrocodone/Acetaminophen [Hague 1 each PO Q6H PRN PRN #40 tablet 12/11/1612/22 Unknown Rx 10-325 Tablet] - History of Present Illness -Gen Adult Nature of Presenting Problems: Pt is a 21 yof who presents to ER with CC of sickle cell pain and fever. Pt reports that she was admitted 1 month ago with an infected port, had it removed , and it has intermittently been draining purulence, has become warm to the touch, and has had a fever of 102.3 at home. Pt describes her sickle cell pain being in her chest/back. Location of Pain/Injury: reports: chest, back Pain Radiation: reports: no radiation Quality of Pain: reports: aching, cramping Severity: reports: moderate Onset/Duration: reports: unsure Timing: reports: still present Associated Symptoms: reports: anxiety, back/neck pain, chest pain, fever/chills , joint pain, muscle aches. denies: arm pain, constipation, cough, diaphoresis , diarrhea, dizziness, EENT symptoms, fatigue, genitourinary problems, headaches , heartburn, loss of appetite, malaise, sinus congestion/drainage, nausea, rash , seizure, shortness of breath, sensory/motor loss, pain with inspiration, swelling/mass in abdomen, syncope, vomiting, weakness, trouble walking Similar Symptoms Previously?: Yes Recently seen or treated by another doctor?: Yes - Sickle Cell Pain Related Context Sickle Cell Pain Location: reports: chest, back Is this pain typical of prior episodes of crisis?: Yes Review of Systems - Adult - REVIEW OF SYSTEMS - ADULT Constitutional: reports: fever. denies: chills, fatique, night sweats, weight gain, weight loss Eyes: reports: no symptoms reported Ears, Nose, Mouth & Throat: reports: no symptoms reported Cardiovascular: reports: chest pain. denies: edema, heart murmur, irregular heart rate, orthopnea, palpitations, poor circulation, PND, syncope Respiratory: denies: chronic cough, cough, dyspnea on exertion, excessive sputum production, hemoptysis, pleurisy, shortness of breath, wheezing Gastrointestinal: reports: no symptoms reported Genitourinary: reports: no symptoms reported Musculoskeletal: reports: back pain, joint pain, muscle aches, muscle weakness, neck pain. denies: bone pain, frequent leg cramps, joint swelling Integumentary: reports: skin sores/ulcer (port site, beneath Rt breast). denies : hives, hair loss, itching, mole changes, nail changes, rash, skin thickening Neurological: reports: no symptoms reported Psychiatric: reports: no symptoms reported Endocrine: reports: no symptoms reported Hematologic/Lymphatic: reports: no symptoms reported Allergic/Immunologic: reports: no symptoms reported All Other Systems: Reviewed and Negative Past History - Adult - PAST MEDICAL HISTORY-ADULT Review of Records: reports: Nursing Assessment Review, Medications Reviewed Respiratory: reports: asthma Musculoskeletal: reports: chronic pain (due sickle cell crisis) Endocrine/Immune: reports: Sickle Cell disease Sickle Cell Genotype:: SS - PRIOR SURGERIES/PROCEDURES Surgical/Procedure History: reports: cholecystectomy, indwelling device (P-A-C placement) - IMMUNIZATION STATUS Childhood Immunizations: See Nurse Assessment Flu Vaccine: See Nurse Assessment - FAMILY HISTORY Family History: sickle cell disease/trait Physical Exam-General - PHYSICAL EXAM-ADULT Initial Vital Signs Reviewed: Yes - CONSTITUTIONAL General Appearance: appears well, alert, mild distress, anxious, lethargic. negative: no apparent distress, moderate distress, severe distress, cachetic, obese, thin, slow to respond, obtunded, combative - MUSCULOSKELETAL Extremity: normal range of motion, non-tender, normal gait, normal inspection, no pedal edema, no calf tenderness, normal capillary refill - SKIN Integumentary: normal color, normal turgor, warm/dry, tenderness, warm. negative: abrasion(s), ecchymosis, erythema, swelling - NEUROLOGIC Neurologic: transportation refrigeration technician II-XII nml as tested, grossly normal, no motor/sensory deficits . negative: facial droop, focal weakness, motor weakness, sensory deficit - PSYCHIATRIC Psych/Mental Status: normal thought content, normal thought process, oriented x 3, anxious, disheveled, depressed affect. negative: normal mood/affect Progress - PLAN OF CARE/RESULTS Progress/Plan/Lab Results: Vital Signs - 8 hr 12/22/16 16:00 Temperature 99.5 F Pulse Rate 115 H Respiratory Rate 18 Blood Pressure 124/76 O2 Sat by Pulse Oximetry 99 Laboratory Results - last 24 hr 12/22/16 17:58 WBC 13.58 H RBC 3.18 L Hgb 8.1 L Hct 24.8 L MCV 78.0 L MCH 25.5 L MCHC 32.7 L RDW Std Deviation 18.8 H Plt Count 250 MPV 8.0 Immature Gran % (Auto) 0.3 Neut % (Auto) 63.7 Lymph % (Auto) 28.1 [place] % (Auto) 5.1 Eos % (Auto) 2.4 Baso % (Auto) 0.4 Immature Gran # (Auto) 0.04 Neut # (Auto) 8.66 H Lymph # (Auto) 3.81 H [place] # (Auto) 0.69 H Eos # (Auto) 0.33 Baso # (Auto) 0.05 Segmented Neutrophils Cancelled Band Neutrophils Cancelled Lymphocytes Cancelled Monocytes Cancelled Eosinophils Cancelled Basophils Cancelled Metamyelocytes Cancelled Myelocytes Cancelled Promyelocytes Cancelled Nucleated RBCs Cancelled Atypical Lymphocytes Cancelled Blast Cells Cancelled Hypochromia Cancelled Vacuolization Cancelled Toxic Granulation Cancelled Dohle Bodies Cancelled Large Platelets Cancelled Polychromasia Cancelled Poikilocytosis Cancelled Basophilic Stippling Cancelled Anisocytosis Cancelled Microcytosis Cancelled Macrocytosis Cancelled Spherocytes Cancelled Sickle Cells Cancelled Target Cells Cancelled Ovalocytes Cancelled Stomatocytes Cancelled Tyson-Zurich Bodies Cancelled Lawrence Cells Cancelled Unidentified Cells Cancelled Schistocytes Cancelled Percent Retic 5.41 H Retic Hgb Equivalent 24.2 L Orders Category Date Time Status CHEST-2 VIEWS [RAD] Stat Exams 12/22/16 18:33 Ordered CBC WITH ELECTRONIC DIFF [HEME] Stat Lab 12/22/16 17:58 Completed RETIC COUNT [HEME] Stat Lab 12/22/16 17:58 Completed Result Diagrams: 12/22/16 17:58 - XRAY 1 XRAY: Bilateral XRAY Study: Chest Impression: See EMR Report - CONSULTS/PCP/HOSPITALIST Notification #1 *Consult/PCP/Hospitalist*: Dr. Castellanos (Infectious Disease Specialist) Time Discussed: 20:06 #2 Consult: Dr. Wills (Hospitalist) Time Discussed: 22:57 Consult Disposition: Admit Departure - Departure Time of Disposition Decision: 23:12 DIAGNOSIS: Septicemia Sickle cell disease Qualifiers: Sickle-cell associated disorders: with unspecified crisis Qualified Code(s): D57.00 - Hb-SS disease with crisis, unspecified; D57.0 - Hb-SS disease with crisis Disposition: ADMITTED INPATIENT 09 Certified Medical Emergency: Emergent Condition: Stable Referrals and Follow-Ups: None,PCP [Primary Care Provider] - This chart was documented by the indicated scribe, (Judd Church Scribe) and accurately reflects the services I performed and decisions made by me, Burt Cabrera MD, as attested by the provider's signature.
[2016-12-23] MEDS: FOLIC ACID PO SCH (08:46)
[2016-12-23 09:48] LABS: BASO% 0.3 % (0.0-0.8); EOS# 0.37 X1000 (0.0-0.7); EOS% 2.6 % (0.0-10.0); HEMATOCRIT 24.2 % (37.0-47.0); HEMOGLOBIN 7.8 g/dL (12.0-16.0); IMM GRAN# 0.03 X1000 (0.0-0.04); IMM GRAN% 0.2 % (0.0-0.5); LYMPH# 4.75 X1000 (1.2-3.4); MANUAL DIFF NEEDED? YES; MCH 25.2 PG (27-31); MCHC 32.2 g/dL (33-37); MCV 78.3 FL (81-99); MONO# 1.04 X1000 (0.11-0.59); MONO% 7.2 % (1.7-9.3); MPV 8.7 FL (7.4-10.4); NEUT% 56.7 % (42.2-75.2); PLT 250 X1000 (130-400); RBC 3.09 XMIL (4.2-5.4)
[2016-12-23 10:05] LABS: AGAP 13; ALBUMIN 3.9 g/dL (3.5-5.0); ALKALINE PHOSPHATASE 107 U/L (32-104); BUN 11 mg/dL (8-22); CHLORIDE 101 mmol/L (98-107); COSMO 272; GOT 23 U/L (10-30); GPT 13 U/L (10-36); SODIUM 137 mmol/L (136-145); TCO2 23 mmol/L (25-35); TOTAL BILIRUBIN 0.52 mg/dL (0.20-1.00)
[2016-12-23 10:18] LABS: EOS 3 % (1-10); LYMPHS 36 % (21-51); MONO 5 % (1-9); NRBC 2 % (0-0)
[2016-12-23 10:19] LABS: TARGET CELLS 1+
[2016-12-23] MEDS: BENADRYL IV PRN ×2 (11:42→17:53)
[2016-12-23] MEDS: HYDREA PO SCH ×2 (11:43→20:42)
--- NOTE | 2016-12-23 11:48 | Diag Imaging Result Document ---
PROCEDURE NAME: CHEST-2 VIEWS - 12/22/2016 CHEST, 2 VIEWS: COMPARISON: 12/04/2016. FINDINGS: Stable left chest port. The lungs are clear. Heart size and pulmonary vascularity is normal. No pneumothorax or pleural effusion. IMPRESSION: No acute disease or change from prior.
[2016-12-23] MEDS: PHENERGAN IV PRN ×2 (14:33→20:49)
--- NOTE | 2016-12-23 15:00 | PROGRESS NOTE ---
DATE: 12/23/2016 SUBJECTIVE: The patient is resting comfortably in bed. She does complain of pain in the right chest wall where her port was removed. There was some pus coming from it, at the suture site. OBJECTIVE: Vital Signs: Temperature 97 degrees, blood pressure 119/67, heart rate 97, respirations 16, O2 saturation is 100% on room air. General: This is a young female, lying in bed, in no acute distress. Head: Normocephalic, atraumatic. Heart: S1, S2. Normal. Regular rate and rhythm. Lungs: Clear to auscultation bilaterally. No wheezes. No rales. No rhonchi. Abdomen: Positive bowel sounds. Soft, nontender, nondistended. Extremities: No edema. No cyanosis. No calf tenderness. LABS: White blood cell count 14, hemoglobin 7.8, hematocrit 24, platelets 250, 000. Sodium 137, potassium 4, chloride 101, CO2 23, BUN 11, creatinine 0.5. ASSESSMENT AND PLAN: 1. Right chest wall infection status post port removal. Will attempt to get a wound culture from the site. Blood cultures have already been obtained. The patient is currently on cefazolin. Dr. Castellanos has been consulted for further recommendations. 2. Sickle cell anemia. The patient is not in crisis at this time. Continue on folic acid, Hydrea, and p.r.n. pain medication. 3. Deep vein thrombosis prophylaxis. Continue on Lovenox. cc: Geraldine Napier MD [facility]
--- NOTE | 2016-12-23 16:56 | PROGRESS NOTE ---
DATE: 12/23/2016 PRESENT ILLNESS: Patient was admitted to the hospital because she said she had fever at home and also she started draining pus from the right lateral aspect of her chest where a Port-A-Cath had been removed. Thus far in the hospital she has not had any fever and the Port-A-Cath site is not erythematous, swollen, or draining pus. MEDICATIONS: The patient is currently is on Ancef. PHYSICAL EXAMINATION: Vital Signs: Temperature is 97.7 degrees, pulse 97, respirations 16, blood pressure 119/67. General: This is a fairly healthy-appearing, young female. She is in no acute distress. Lungs: Clear to auscultation. Cardiovascular: Regular heart rate. Abdomen: Soft and nontender. Chest: The patient has a Port-A-Cath on the left side. The site is not swollen or tender. On the right lateral aspect of her chest the Port-A-Cath site is not erythematous and there is no drainage coming from the area. Neurologic: Patient is alert. She can move her extremities. There is no tremor. Patient is awake. LAB AND X-RAY: The patient's CBC shows a white count of 14,410, hemoglobin 7.8 platelet count 250,000. Creatinine 0.5. GFR is greater than 60. Liver function studies are normal. Blood cultures are pending. There has been no pus from the patient's chest and thus I was unable to obtain a culture. ASSESSMENT AND PLAN: By the patient's history, she said she had fever and purulent drainage from her chest Port-A-Cath site. We have previously grown an oxacillin-sensitive Staph aureus from the patient's wounds. She is back on Ancef now in a dose of 1 g IV every 8 hours. Thus far in the hospital there has not been any drainage from the chest and also there has not been any fever. The new Port-A-Cath site on the left side does not look swollen and it is not tender and it is not erythematous. The patient's comorbidities, her main one is that she has sickle-cell and frequently is in crises and she requires pain medication for her crisis. She is out of peripheral IV and therefore she needs to use an implanted intravenous device, specifically in this situation a Port-A-Cath. cc: Audi Castellanos MD
[2016-12-23] MEDS: SODIUM CHLORIDE 0.9% INJ PRN (20:49)
[2016-12-24] MEDS: NS 1,000 ML IV SCH ×6 (00:22→20:56)
[2016-12-24] MEDS: DILAUDID IV PRN ×8 (00:23→21:58)
[2016-12-24] MEDS: BENADRYL IV PRN ×4 (00:23→18:42)
[2016-12-24] MEDS: SODIUM CHLORIDE 0.9% INJ PRN ×2 (03:18→21:58)
[2016-12-24] MEDS: PHENERGAN IV PRN ×4 (03:18→21:58)
[2016-12-24] MEDS: LOVENOX SUBQ SCH ×2 (03:31→23:24)
[2016-12-24] MEDS: KEFZOL 1 GM/D5W 1 GM/50 ML IVPB IV SCH ×3 (03:32→20:54)
[2016-12-24 06:32] LABS: AGAP 9; BUN 8 mg/dL (8-22); CALCIUM 8.1 mg/dL (8.8-10.2); CHLORIDE 106 mmol/L (98-107); COSMO 279; POTASSIUM 4.4 mmol/L (3.5-5.1); SODIUM 141 mmol/L (136-145); TCO2 26 mmol/L (25-35)
[2016-12-24 06:33] LABS: BASO% 0.3 % (0.0-0.8); EOS# 0.34 X1000 (0.0-0.7); HEMATOCRIT 24.8 % (37.0-47.0); IMM GRAN# 0.03 X1000 (0.0-0.04); IMM GRAN% 0.3 % (0.0-0.5); LYMPH% 24.1 % (20.5-51.1); MANUAL DIFF NEEDED? YES; MCHC 32.3 g/dL (33-37); MCV 77.5 FL (81-99); MONO# 0.71 X1000 (0.11-0.59); MONO% 6.3 % (1.7-9.3); MPV 8.5 FL (7.4-10.4); PLT 240 X1000 (130-400)
[2016-12-24 07:38] LABS: EOS 2 % (1-10); HYPOCHROM 1+; LYMPHS 26 % (21-51); MONO 6 % (1-9)
[2016-12-24 07:47] LABS: SED RATE 3 mm/hr (0-20)
--- NOTE | 2016-12-24 07:54 | PROGRESS NOTE ---
DATE: 12/24/2016 PRESENT ILLNESS: The patient has sickle cell disease. She was admitted to the hospital with fever and drainage from her previous right-sided Port-A-Cath site. MEDICATIONS: The patient is receiving Ancef 1 gram IV every 8 hours. PHYSICAL EXAMINATION: Vital Signs: Temperature is 97.9 degrees, pulse 96, respirations 20, blood pressure 115/64. General: This is a somewhat chronically ill-appearing young female. She is in no acute distress. Lungs: Clear to auscultation. Cardiovascular: Regular heart rate. Abdomen: Soft without masses or tenderness. Thorax: The patient's right-sided Port-A-Cath site is not erythematous or swollen. Chest: The left upper chest area where the patient's Port-A-Cath is present also is not erythematous or swollen. There is no drainage from the area. There is no drainage at the previous Port-A-Cath site or at the present Port-A-Cath site. LABORATORIES AND X-RAYS: There is no new radiographic study. The patient's wound culture is pending. Blood cultures are sterile. CBC shows a white count of 11,210, hemoglobin 8, and platelet count 240,000. Creatinine 0.5. GFR is greater than 60. ASSESSMENT AND PLAN: The patient had by history a fever at home that may have been due to a recurrence of her Port-A-Cath infection. She has been afebrile in the hospital. She also is complaining of pus draining from the prior right chest Port-A-Cath site. This area now is not erythematous, swollen, or draining. It is also not tender. I think we should treat the patient mainly because of her history of having fever and drainage from the Port-A-Cath area. I think the patient should be treated for 2 weeks with IV Ancef, which she is currently receiving. She has been on Ancef now for 2 days. COMORBIDITIES: Include she has sickle cell disease and frequently has crises, and she requires pain medication and at times IV fluids. It is almost impossible to find a peripheral IV on her; therefore, she needs to have a Port-A-Cath in place. The patient's Port-A-Cath is her biggest comorbidity. cc: Audi Castellanos MD
[2016-12-24] MEDS: FOLIC ACID PO SCH (09:34)
[2016-12-24] MEDS: HYDREA PO SCH ×2 (09:34→20:54)
--- NOTE | 2016-12-24 17:29 | PROGRESS NOTE ---
DATE: 12/24/2016 SUBJECTIVE: The patient has no focal complaints. OBJECTIVE: Vital signs: Blood pressure 112/62, heart rate 99, respiratory rate 16, temperature 98.8 degrees. Cardiovascular: Regular rate and rhythm. No murmurs, gallops, or rubs. Pulmonary: Bilateral breath sounds. Clear to auscultation. GI: Soft, nontender, nondistended. Bowel sounds are positive. Skin: Her wound across her right old Port-A-Cath site is pretty much normal. Has no purulence or exudate or erythema or any warmness to touch. LABORATORY DATA: Hemoglobin and hematocrit are stable at 8 and 24, platelets of 240,000, white count of 11. ASSESSMENT: 1. This is a 21-year-old female with right chest wall infection related to likely a methicillin- sensitive Staphylococcus aureus. She is currently on cefazolin. I think we can probably transition her to Keflex tomorrow, assuming she improves. I am not sure if she is going to need long-term IV antibiotics. We will discuss this further with Dr. Castellanos. She is not bacteremic and her superficial wound care is an issue. The current Port-A-Cath is okay; it was the old site that was irritated. But again, cultures including blood cultures are no growth at this time. 2. Sickle cell. Crisis is mild. She seems to be doing okay. 3. Disposition. Pending her multiple issues. cc: Bharat Hernadez MD
[2016-12-25] MEDS: BENADRYL IV PRN ×4 (01:02→18:59)
[2016-12-25] MEDS: DILAUDID IV PRN ×8 (01:03→22:09)
[2016-12-25] MEDS: NS 1,000 ML IV SCH ×5 (03:19→18:59)
[2016-12-25] MEDS: PHENERGAN IV PRN ×4 (04:07→22:09)
[2016-12-25] MEDS: SODIUM CHLORIDE 0.9% INJ PRN ×3 (04:07→16:04)
[2016-12-25] MEDS: KEFZOL 1 GM/D5W 1 GM/50 ML IVPB IV SCH (04:07)
[2016-12-25 06:32] LABS: BASO% 0.3 % (0.0-0.8); EOS# 0.52 X1000 (0.0-0.7); EOS% 4.3 % (0.0-10.0); HEMATOCRIT 24.4 % (37.0-47.0); IMM GRAN# 0.02 X1000 (0.0-0.04); IMM GRAN% 0.2 % (0.0-0.5); LYMPH# 3.42 X1000 (1.2-3.4); LYMPH% 28.5 % (20.5-51.1); MANUAL DIFF NEEDED? NO; MCH 25.3 PG (27-31); MCHC 32.8 g/dL (33-37); MCV 77.2 FL (81-99); MONO# 0.65 X1000 (0.11-0.59); MONO% 5.4 % (1.7-9.3); MPV 8.3 FL (7.4-10.4); NEUT% 61.3 % (42.2-75.2); PLT 242 X1000 (130-400); RBC 3.16 XMIL (4.2-5.4)
[2016-12-25 06:38] LABS: AGAP 10; BUN 10 mg/dL (8-22); CALCIUM 8.4 mg/dL (8.8-10.2); CHLORIDE 103 mmol/L (98-107); COSMO 276; SODIUM 139 mmol/L (136-145); TCO2 26 mmol/L (25-35)
[2016-12-25 07:55] LABS: RETIC% 5.75 % (0.8-2.1); RETIC-HE 21.4 PG (28.2-36.6)
--- NOTE | 2016-12-25 08:51 | PROGRESS NOTE ---
DATE: 12/25/2016 PRESENT ILLNESS: The patient has sickle cell disease. She was admitted to the hospital with fever and drainage from a previous right-sided Port-A-Cath site. MEDICATIONS: The patient is receiving Ancef. I have increased the dose today to 2 g IV every 8 hours. PHYSICAL EXAMINATION: Vital Signs: Temperature is 98.6 degrees pulse 74, respirations 16, blood pressure 120/64. General: This is a healthy-appearing, young female. She is in no acute distress. Lungs: Clear to auscultation. Cardiovascular: Regular heart rate. Abdomen: Soft and nontender. Chest: The right side of the chest where the Port-A-Cath previously was is slightly indurated, but it is not draining or tender or fluctuant. The patient' s right-sided Port- A-Cath site where the new Port-A-Cath is reveals it is not swollen or tender either. LAB AND X-RAYS: CBC today shows a white count of 11,990 hemoglobin 8, platelet count 242,000, creatinine 0.5. GFR is greater than 60. ASSESSMENT AND PLAN: I think the patient had a Port-A-Cath infection at that site, but it appears to be healing well now. Her white count does still remain elevated, but I do not find any other alternative reason that is the cause. I will be to get a CAT scan of the patient's chest today to look for an intrathoracic infection. COMORBIDITY: The patient's comorbidity is that she has severe sickle cell disease, and frequently has crises where she needs to get IV medication and/or fluids. cc: Audi Castellanos MD MTDD
[2016-12-25] MEDS: HYDREA PO SCH ×2 (10:04→20:23)
[2016-12-25] MEDS: FOLIC ACID PO SCH (10:04)
--- NOTE | 2016-12-25 10:05 | Diag Imaging Result Document ---
PROCEDURE NAME: THORAX W/WO CONTRAST - 12/25/2016 CT OF THE CHEST WITH AND WITHOUT CONTRAST: FINDINGS: The cavitary lesion which was present in the right middle lobe on the previous study of 11/09/2016 has diminished considerably in size and the cavity is no longer visible. It was previously over 8 mm in diameter and now less than 5. The pleural-based opacities in the right lower lobe have also diminished in conspicuity since the previous examination. The opacity previously present posteriorly in the right upper lobe has completely resolved. Otherwise, the lung parenchyma is stable in appearance. 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 There are no abnormal fluid collections. There is a hiatal hernia. IMPRESSION: Improvement in the right upper lobe and right middle lobe opacities as described.
[2016-12-25] MEDS: KEFZOL 2 GM/D5W 2 GM/50 ML IVPB IV SCH ×2 (11:27→20:25)
--- NOTE | 2016-12-25 14:37 | PROGRESS NOTE ---
DATE: 12/25/2016 SUBJECTIVE: Patient has no focal complaints. OBJECTIVE: Blood pressure 119/59, heart rate 90, respiratory rate 16, temperature 98.6 degrees, 99% on room air.Cardiovascular: Regular rate and rhythm. Pulmonary: Bilateral breath sounds. Clear to auscultation. GI: Soft, nontender, nondistended. Bowel sounds are positive. LABORATORY DATA: White count 11.9, hemoglobin and hematocrit 8 and 24, platelets 242,000. Chemistries look okay. PROBLEMS: 1. Chest wall infection. We are still waiting on micro, it turned out to be Staph aureus and it is MSSA so should be sensitive to cefazolin. It is not listed on here though but I am assuming she could possibly go home on Keflex. Dr. Castellanos I think was preferring IV Kefzol. We will discuss with him and decide about discharge. Anticipate discharge tomorrow. 2. Sickle cell disease. Appears to be well compensated. Will continue to follow. cc: Bharat Hernadez MD
[2016-12-25] MEDS: DURAGESIC 12 MICROGM/HR PATCH TD SCH ×2 (20:25→23:58)
[2016-12-25] MEDS ORDERED: SODIUM CHLORIDE 0.9% 10 ML ONE (22:04)
[2016-12-25] MEDS: LOVENOX SUBQ SCH (23:58)
[2016-12-26] MEDS ORDERED: SODIUM CHLORIDE 0.9% 10 ML ONE ×2 (01:06→04:04)
[2016-12-26] MEDS: BENADRYL IV PRN ×4 (01:11→18:40)
[2016-12-26] MEDS: DILAUDID IV PRN ×8 (01:11→21:42)
[2016-12-26] MEDS: PHENERGAN IV PRN ×4 (04:08→21:46)
[2016-12-26] MEDS: KEFZOL 2 GM/D5W 2 GM/50 ML IVPB IV SCH ×3 (04:09→20:04)
[2016-12-26 06:38] LABS: HEMATOCRIT 23.3 % (37.0-47.0); HEMOGLOBIN 7.6 g/dL (12.0-16.0); MCH 25.4 PG (27-31); MCHC 32.6 g/dL (33-37); MCV 77.9 FL (81-99); MPV 8.3 FL (7.4-10.4); RBC 2.99 XMIL (4.2-5.4)
[2016-12-26 06:53] LABS: AGAP 11; BUN 12 mg/dL (8-22); CALCIUM 8.4 mg/dL (8.8-10.2); CHLORIDE 101 mmol/L (98-107); COSMO 273; POTASSIUM 4.1 mmol/L (3.5-5.1); SODIUM 137 mmol/L (136-145); TCO2 25 mmol/L (25-35)
[2016-12-26] MEDS: NS 1,000 ML IV SCH (07:34)
--- NOTE | 2016-12-26 07:40 | PROGRESS NOTE ---
DATE: 12/26/2016 PRESENT ILLNESS: The patient has a Staphylococcus aureus infection involving the right side of the chest where she previously had a Port-A-Cath placed. That area of infection appears to have cleared. On CT scan, the patient has improvement in her right upper lobe and right middle lobe opacities. Therefore, she appears to have a Staphylococcus aureus pneumonia as well. MEDICATIONS: The patient is on Ancef 2 g IV every 8 hours. PHYSICAL EXAMINATION: Vital Signs: Temperature is 98 degrees, pulse 90, respirations 20, blood pressure 111/72. General: This is a somewhat ill-appearing, young female. She is in no acute distress. Lungs: Clear to auscultation. Cardiovascular: Regular heart rate. Abdomen: Soft and nontender. Chest: The site of the prior catheter is not fluctuant, red, or draining. The patient's new Port-A-Cath site is not swollen or tender. LAB AND X-RAY: CT scan shows improvement in the right upper lobe and right middle lobe opacities. The patient's CBC shows the white count is down to 10,980, hemoglobin 7.6, and platelet count 216,000. Creatinine is 0.5. GFR is greater than 60. A culture from the patient's chest wound is growing oxacillin sensitive Staphylococcus aureus. ASSESSMENT AND PLAN: Patient has a Staphylococcus aureus pneumonia and chest wall infection. My plan will be to continue her on Ancef. I think she could be discharged and do her antibiotics at home. COMORBIDITIES: She has sickle cell disease and frequently requires use of IV medications and/or fluids. Therefore, she has to have a permanent IV catheter such as a Port-A-Cath. cc: Audi Castellanos MD
[2016-12-26] MEDS: HYDREA PO SCH ×2 (08:13→20:05)
[2016-12-26] MEDS: FOLIC ACID PO SCH (08:13)
--- NOTE | 2016-12-26 15:56 | PROGRESS NOTE ---
DATE: 12/26/2016 SUBJECTIVE: The patient has no focal complaints. OBJECTIVE: Patient has no major issues. Afebrile, avss CV: RRR no m/g/r/ PULM: CTA -B GI soft NT/ND BS:+ LABS: H HCT: 22 PROBLEM LIST: 1. Chest wall infection with pneumonia, methicillin sensitive Staphylococcus aureus. She is on cefazolin. Plan for 2 weeks of treatment as an outpatient. 2. Sickle cell disease with mild crisis. Her anemia has progressed. I am not sure if that is dilutional. We will repeat her labs tomorrow and follow clinically. DISPOSITION: Can likely go home; will monitor if HH: stable, may go hoem versus tranfusion; will also check retic count in am cc: Bharat Hernadez MD MTDD
[2016-12-26] MEDS: SODIUM CHLORIDE 0.9% INJ PRN (21:46)
[2016-12-26] MEDS: LOVENOX SUBQ SCH (23:45)
[2016-12-27] MEDS: BENADRYL IV PRN ×4 (01:08→19:28)
[2016-12-27] MEDS: DILAUDID IV PRN ×8 (01:09→22:39)
[2016-12-27] MEDS: KEFZOL 2 GM/D5W 2 GM/50 ML IVPB IV SCH ×3 (04:23→20:29)
[2016-12-27] MEDS: SODIUM CHLORIDE 0.9% INJ PRN (04:24)
[2016-12-27] MEDS: PHENERGAN IV PRN ×4 (04:24→22:39)
[2016-12-27 06:32] LABS: HEMATOCRIT 24.6 % (37.0-47.0); HEMOGLOBIN 8.1 g/dL (12.0-16.0); MCH 25.2 PG (27-31); MCHC 32.9 g/dL (33-37); MCV 76.6 FL (81-99); MPV 8.2 FL (7.4-10.4); RBC 3.21 XMIL (4.2-5.4)
[2016-12-27 06:46] LABS: RETIC% 5.32 % (0.8-2.1); RETIC-HE 22.4 PG (28.2-36.6)
[2016-12-27] MEDS: HYDREA PO SCH ×2 (08:35→20:29)
[2016-12-27] MEDS: FOLIC ACID PO SCH (08:36)
[2016-12-27] MEDS: ZOFRAN IV PRN (10:51)
--- NOTE | 2016-12-27 19:14 | PROGRESS NOTE ---
DATE: 12/27/2016 SUBJECTIVE: The patient has no focal complaints. OBJECTIVE: Vital signs: Blood pressure 123/69, heart rate 95, respiratory rate 20, temperature 98.3, 100% on room air. Cardiovascular: Regular rate and rhythm. Pulmonary: Bilateral breath sounds, clear to auscultation. Gastrointestinal: Abdomen soft, nontender, nondistended. Bowel sounds were positive. LABORATORY DATA: White count still up a little bit, 11, hemoglobin and hematocrit though are only 8 and 24, platelets 230. Her reticulocyte count is about 5%, which is kind of her baseline. PROBLEM LIST: 1. Chest wall infection, pneumonia with methicillin-sensitive Staphylococcus aureus. She is on cefazolin. Plan is for discharge on 2 weeks of antibiotics. 2. Sickle cell disease without crisis. She is stable at this point. I think she likely can go home. We will plan on discharge tomorrow if the patient remains stable. cc: Bharat Hernadez MD
[2016-12-28] MEDS: LOVENOX SUBQ SCH (00:49)
[2016-12-28] MEDS: BENADRYL IV PRN ×4 (01:23→21:49)
[2016-12-28] MEDS: DILAUDID IV PRN ×7 (01:23→21:49)
[2016-12-28] MEDS: KEFZOL 2 GM/D5W 2 GM/50 ML IVPB IV SCH ×3 (05:15→21:35)
[2016-12-28] MEDS: SODIUM CHLORIDE 0.9% INJ PRN (05:17)
[2016-12-28] MEDS: PHENERGAN IV PRN ×2 (05:17→12:26)
[2016-12-28 06:33] LABS: HEMATOCRIT 23.2 % (37.0-47.0); HEMOGLOBIN 7.5 g/dL (12.0-16.0); MCH 25.2 PG (27-31); MCHC 32.3 g/dL (33-37); MCV 77.9 FL (81-99); RBC 2.98 XMIL (4.2-5.4)
[2016-12-28 06:44] LABS: AGAP 11; BUN 11 mg/dL (8-22); CALCIUM 8.5 mg/dL (8.8-10.2); CHLORIDE 103 mmol/L (98-107); COSMO 278; POTASSIUM 3.9 mmol/L (3.5-5.1); SODIUM 140 mmol/L (136-145); TCO2 26 mmol/L (25-35)
[2016-12-28] MEDS: HYDREA PO SCH ×2 (08:57→21:35)
[2016-12-28] MEDS: FOLIC ACID PO SCH (08:57)
--- NOTE | 2016-12-28 10:14 | PROGRESS NOTE ---
DATE: 12/28/2016 PRESENT ILLNESS: The patient has a Staph aureus pneumonia. In the past she had a Staph aureus infection of her Port-A-Cath on the right side of her chest. She also on chest x-ray has pneumonia. She has a new Port-A-Cath on the right side of the chest and thus far it does not look infected. MEDICATIONS: The patient is on Ancef 2 g IV every 8 hours. PHYSICAL EXAMINATION: Vital Signs: Temperature is 98.1 degrees, pulse 83, respirations 20, blood pressure 104/46. General: This is a somewhat ill-appearing, young female. She usually stays lying in bed and does not get up much. Lungs: Clear to auscultation. Cardiovascular: Regular heart rate. Chest: The patient on the right side of her chest has no erythema or swelling at the site where she previously had a Port-A-Cath. The Port-A-Cath site on the right side of the chest is not swollen or purulent. LAB AND X-RAY: [place] [address], hemoglobin 7.5 and platelet count 205,000. Creatinine is 0.5. GFR is greater than 60. There is no new radiographic study. ASSESSMENT AND PLAN: The patient has a Staph aureus pneumonia and chest wall faction. She previously has had a Staph aureus bacteremia. The plan is to continue the patient on Ancef and follow her x-ray to see if it starts clearing up soon. The patient's doses of Ancef is 2 g IV every 8 hours. She has done home IV antibiotics in the past. COMORBIDITIES: Include sickle cell disease. cc: Audi Castellanos MD
[2016-12-28] MEDS: DURAGESIC 12 MICROGM/HR PATCH TD SCH (15:54)
--- NOTE | 2016-12-28 16:14 | PROGRESS NOTE ---
DATE: 12/28/2016 SUBJECTIVE: The patient has no focal complaints except she wants her fentanyl patch changed. OBJECTIVE: Her vital signs are stable. LABORATORY DATA: Her hemoglobin and hematocrit unfortunately has drop to 7 and 23, white count is about the same. PROBLEM LIST: 1. Chest wall infection. Continue cefazolin per Dr. Castellanos. 2. Pneumonitis MSSA. Continue cefazolin and follow. 3. Sickle cell crisis. We will monitor hemoglobin and hematocrit. If stable, we likely discharge tomorrow. cc: Bharat Hernadez MD
[2016-12-28 16:25] LABS: AGAP 12; BUN 14 mg/dL (8-22); CALCIUM 8.5 mg/dL (8.8-10.2); CHLORIDE 100 mmol/L (98-107); COSMO 276; POTASSIUM 4.3 mmol/L (3.5-5.1); SODIUM 138 mmol/L (136-145); TCO2 26 mmol/L (25-35)
[2016-12-28] MEDS: ZOFRAN IV PRN (18:39)
[2016-12-29] MEDS: LOVENOX SUBQ SCH ×2 (01:04→23:26)
[2016-12-29] MEDS: DILAUDID IV PRN ×8 (01:05→23:25)
[2016-12-29] MEDS: KEFZOL 2 GM/D5W 2 GM/50 ML IVPB IV SCH ×3 (04:25→20:16)
[2016-12-29] MEDS: BENADRYL IV PRN ×4 (04:30→23:26)
[2016-12-29 06:17] LABS: HEMATOCRIT 21.6 % (37.0-47.0); HEMOGLOBIN 7.1 g/dL (12.0-16.0); MCH 26.1 PG (27-31); MCHC 32.9 g/dL (33-37); MCV 79.4 FL (81-99); MPV 8.3 FL (7.4-10.4); RBC 2.72 XMIL (4.2-5.4)
[2016-12-29 06:37] LABS: RETIC% 6.52 % (0.8-2.1); RETIC-HE 23.8 PG (28.2-36.6)
[2016-12-29] MEDS: HYDREA PO SCH ×2 (09:59→20:16)
[2016-12-29] MEDS: FOLIC ACID PO SCH (10:00)
[2016-12-29] MEDS: PHENERGAN IV PRN ×2 (13:40→20:15)
[2016-12-29] MEDS: SODIUM CHLORIDE 0.9% INJ PRN (13:41)
--- NOTE | 2016-12-29 14:16 | PROGRESS NOTE ---
DATE: 12/29/2016 SUBJECTIVE: The patient seems more comfortable today. She has been looking very stable but the last 2 days she has just been in more pain. OBJECTIVE: 120/65, heart rate 101, respiratory 16, temperature 98 degrees.Cardiovascular: Regular rate and rhythm with hyperdynamic S1, S2. GI: Soft, nontender, nondistended. Bowel sounds are positive. LABORATORY DATA: White count 11, hemoglobin and hematocrit 7 and 21, platelets 182,000. Retic count has gone up to 6.5%. PROBLEM LIST: 1. Chest wall cellulitis. Cefazolin. We will continue that and follow. 2. MSSA pneumonitis. She is on cefazolin. Plan for 2 weeks as an outpatient. 3. Sickle cell crisis. She may end up needing some treatment as far as transfusion. I am going to continue to watch her urine. Repeat retic count tomorrow. cc: Bharat Hernadez MD
[2016-12-30 00:34] LABS: URINE CULTURE NEEDED? NO; URINE MICRO REVIEW NEEDED? NO; URINE SOURCE CLEAN CATCH
[2016-12-30 00:56] LABS: UR EPITHELIAL CELLS <10 /HPF (<10); URINE BACTERIA NEGATIVE /HPF; URINE RBC <10 /HPF (<10); URINE WBC <10 /HPF (<10)
[2016-12-30 00:57] LABS: BILIRUBIN URINE NEGATIVE (NEGATIVE); BLOOD URINE NEGATIVE (NEGATIVE); COLOR YELLOW; GLUCOSE URINE NEGATIVE (NEGATIVE); LEUKOCYTES URINE NEGATIVE (NEGATIVE); NITRITE URINE NEGATIVE (NEGATIVE); PH URINE 6.5; PROTEIN URINE NEGATIVE (NEGATIVE); SP GRAVITY URINE 1.013; TURBIDITY URINE CLEAR (CLEAR); UROBILINOGEN URINE NORMAL (NORMAL)
[2016-12-30] MEDS: PHENERGAN IV PRN ×4 (02:36→22:46)
[2016-12-30] MEDS: DILAUDID IV PRN ×7 (02:36→22:03)
[2016-12-30] MEDS: SODIUM CHLORIDE 0.9% INJ PRN ×3 (02:36→15:46)
[2016-12-30] MEDS: BENADRYL IV PRN ×3 (05:56→18:46)
[2016-12-30] MEDS: KEFZOL 2 GM/D5W 2 GM/50 ML IVPB IV SCH ×3 (05:57→22:05)
[2016-12-30 06:27] LABS: HEMATOCRIT 22.5 % (37.0-47.0); HEMOGLOBIN 7.3 g/dL (12.0-16.0); MCH 25.3 PG (27-31); MCHC 32.4 g/dL (33-37); MCV 77.9 FL (81-99); MPV 8.1 FL (7.4-10.4); RBC 2.89 XMIL (4.2-5.4); RETIC% 7.6 % (0.8-2.1)
[2016-12-30] MEDS: HYDREA PO SCH ×2 (08:43→22:03)
[2016-12-30] MEDS: FOLIC ACID PO SCH (08:43)
[2016-12-30] MEDS ORDERED: NS 1,000 ML IV SCH (14:30)
--- NOTE | 2016-12-30 15:35 | PROGRESS NOTE ---
DATE: 12/30/2016 SUBJECTIVE: Patient has no focal complaints except she still has chest pain. OBJECTIVE: Vital signs: Blood pressure 126/59, heart rate of 88, respiratory rate 17, temperature 98.4 degrees, 97% on room air. Cardiovascular: Regular rate and rhythm. Pulmonary: Bilateral breath sounds. Clear to auscultation. GI: Soft, nontender, nondistended. Bowel sounds are positive. LABORATORY DATA: White count 10.9, hemoglobin and hematocrit 7 and 22 up a little bit from yesterday, platelets of 216,000. Chemistries look okay. That was from a couple days back. PROBLEM LIST: 1. Sickle cell crisis. Her reticulocyte count is still going up. For continuing pain control I am going to add a little bit of hydration and will see how she does. I have consulted Dr. Salmon. She is close to needing a transfusion but her blood count still stable for her although has dropped since admission. 2. Chest wall infection. Will continue empiric antibiotics. 3. Methicillin sensitive Staphylococcus aureus pneumonia. She is on cefazolin. Per this she is on at day 5 so she will need less I think to go home with. DISPOSITION: if her hemoglobin and hematocrit is stable I think push to get her out tomorrow. cc: Bharat Hernadez MD
[2016-12-31] MEDS: LOVENOX SUBQ SCH ×2 (01:22→23:28)
[2016-12-31] MEDS: DILAUDID IV PRN ×8 (01:23→23:32)
[2016-12-31] MEDS: BENADRYL IV PRN ×4 (01:23→20:16)
[2016-12-31] MEDS: PHENERGAN IV PRN ×4 (04:53→23:25)
[2016-12-31 07:29] LABS: HEMATOCRIT 21.1 % (37.0-47.0); HEMOGLOBIN 6.9 g/dL (12.0-16.0); MCH 25.7 PG (27-31); MCHC 32.7 g/dL (33-37); MCV 78.4 FL (81-99); MPV 7.9 FL (7.4-10.4); RBC 2.69 XMIL (4.2-5.4); RETIC% 9.11 % (0.8-2.1); RETIC-HE 24.8 PG (28.2-36.6)
[2016-12-31] MEDS: FOLIC ACID PO SCH (08:17)
[2016-12-31] MEDS: HYDREA PO SCH ×2 (08:18→20:17)
[2016-12-31] MEDS: SODIUM CHLORIDE 0.9% INJ PRN ×3 (08:21→14:14)
--- NOTE | 2016-12-31 08:28 | PROGRESS NOTE ---
DATE: 12/31/2016 PRESENT ILLNESS: The patient is being treated by me for an oxacillin-sensitive Staph aureus pneumonia and a prior infection of her Port-A-Cath on the right side of her chest. MEDICATIONS: The patient is receiving Ancef at a dose of 2 g IV every 8 hours. PHYSICAL EXAMINATION: Vital Signs: Temperature is 98 degrees, pulse 80, respirations 16, blood pressure 85/53. General: This is a somewhat ill-appearing, young female. She is in no acute distress. Lungs: Clear to auscultation. Cardiovascular: Heart rate is regular. Abdomen: Soft and nontender. Thorax: The patient has a Port-A-Cath present in the left upper chest. The site is not swollen or erythematous. In the right side of the chest there is an area where the patient previously had a Port-A-Cath. The site is not erythematous, swollen, or draining. LAB AND X-RAY: The patient's CBC shows a white count of 10,080, hemoglobin 6.9 , and platelet count 189,000. Creatinine has not been drawn but I just ordered 1 to be drawn. There is no new radiographic order for today. ASSESSMENT AND PLAN: The patient has Staph aureus pneumonia and an infected Port-A-Cath. The plan is to continue with Ancef 2 g IV every 8 hours. The patient's comorbidity is that the patient has sickle cell disease and frequently requires IV treatment consisting of antibiotics and laboratory studies. She does not have any peripheral IV access. Therefore, she has to have a Port-A-Cath placed. My plan is to continue treating her with Ancef, see her in the office and repeat the x-ray. cc: Audi Castellanos MD [facility]
[2016-12-31] MEDS ORDERED: NS 500 ML IV SCH (14:57)
[2016-12-31] MEDS: KEFZOL 2 GM/D5W 2 GM/50 ML IVPB IV SCH ×2 (14:58→23:24)
[2016-12-31] MEDS: DURAGESIC 12 MICROGM/HR PATCH TD SCH (15:05)
[2016-12-31] MEDS ORDERED: SOLU-MEDROL IV ONE (17:05)
[2016-12-31] MEDS ORDERED: TYLENOL PO ONE (17:06)
[2016-12-31] MEDS ORDERED: BENADRYL PO ONE (17:06)
--- NOTE | 2016-12-31 19:13 | PROGRESS NOTE ---
DATE: 12/31/2016 SUBJECTIVE: Patient has no focal complaints. OBJECTIVE: Vital signs: Blood pressure 108/61, heart rate 94, respiratory 16, temperature 98.9 degrees, 97% on room air. Cardiovascular: Regular rate and rhythm. Pulmonary: Bilateral breath sounds. Clear to auscultation. GI: Soft, nontender, nondistended. Bowel sounds are positive. LABORATORY DATA: White count is 10, hemoglobin and hematocrit 6.9 and 21, platelets of 189,000. PROBLEM LIST: 1. Sickle cell. I believe there is some degree of crisis because her reticulocyte count is going up and her blood counts going down. It is hard to tell based on her clinical exam or her complaints because she has steady complaints of chest pain but objectively she does have data looks like she is having some sickle cell issues. I think we are going to go and transfuse her 1 unit and we will follow her closely. 2. MSSA pneumonia. She is on cefazolin. Again I think day 6, plan is for 2 weeks. Will discuss about with Dr. Castellanos if some of the inpatient days will count towards that. 3. Chest wall infection, again is clinically doing well and she is on cefazolin. DISPOSITION: Pending improvement in her sickle cell status, will monitor her labs and follow. cc: Bharat Hernadez MD
--- NOTE | 2016-12-31 21:52 | CONSULTATION ---
DATE OF CONSULTATION: 12/31/2016 ADMITTING PHYSICIAN: Blossom Wills MD. REQUESTING PHYSICIAN: Blossom Wills MD. We appreciate this consultation. CHIEF COMPLAINT: Fever. HISTORY OF PRESENT ILLNESS: Ms. Henley is a very pleasant, 21-year-old, female, who is well known to our service with a history of sickle cell disease. The patient has had multiple crises in the last couple of years with pain control and transfusion of packed red blood cells as needed. Most recently the patient reports that she began to have fever and presented to [facility] where she was found to have pneumonia with infected Port-A-Cath site. The patient is currently being followed by Dr. Castellanos of Infectious Disease and she is on Ancef. Additionally, the patient today is significantly anemic with a hemoglobin of 6.9. She is also complaining of pain in her back. Reticulocyte count today is 24.8. PAST MEDICAL HISTORY: 1. Sickle cell anemia. 2. Avascular necrosis of the left femoral head. 3. Depression. 4. Cavitary lesion. PAST SURGICAL HISTORY: 1. Cholecystectomy. 2. Port placement. 3. Port removal. FAMILY HISTORY: Significant for sickle cell in several first-degree relatives. She has no family history of oncologic or other hematologic problem. SOCIAL HISTORY: The patient does not use tobacco, alcohol or illicit drugs. MEDICATIONS ON ADMISSION: 1. [place]. 2. Zofran. 3. Folic acid. 4. Hydrea. 5. Benadryl. 6. Dilaudid. ALLERGIES: Latex, Demerol, vancomycin and morphine. REVIEW OF SYSTEMS: A 14 point review of systems was obtained and is negative except as mentioned in HPI. PHYSICAL EXAMINATION: General: Ms. Henley is a very pleasant, 21-year-old, female, lying supine in bed, in no immediate distress. Vital Signs: Temperature 98.9 degrees, blood pressure 108/61, heart rate 94, respirations 16, O2 saturation 100% on room air. HEENT: Normocephalic, atraumatic. Mucous membranes are pale and moist. Sclerae is anicteric. Extraocular movements intact. Neck: Supple. Lungs: Clear to auscultation bilaterally. Chest expansion is equal bilaterally. Cardiovascular: S1, S2 is heard without murmur, rub or gallop. Abdomen: Soft, nondistended, nontender. Bowel sounds positive in all quadrants. No rebound or guarding noted. Extremities: Without clubbing, cyanosis, or edema. Dermatologic: No rashes, bruises or lesions. Neurologic: The patient is awake, alert, and oriented x3. She has no focal deficits. LABORATORY DATA: Hemoglobin 6.9, hematocrit 21.1, white blood cell count 10.08, platelets 189,000. ASSESSMENT AND PLAN: 1. Sickle cell disease. The patient is not in obvious crisis at this time. She does report some back pain. We agree with pain control as ordered. We will continue to follow reticulocyte count and CBC. 2. Staph aureus pneumonia and infected Port-A-Cath. Currently on Ancef. Followed by Dr. Castellanos. We agree with antibiotics as ordered. 3. Anemia with a hemoglobin of 6.9. We agree with packed red blood cells as ordered. We will continue to follow CBC and transfuse as necessary. 4. We will follow along with you and make further recommendations pending outcome. Dictated by CORRINA Ramirez for Rigo Salmon MD cc: CORRINA Ramirez MD
[2016-12-31] MEDS ORDERED: DURAGESIC 12 MICROGM/HR PATCH TD SCH (23:15)
[2017-01-01] MEDS: BENADRYL IV PRN ×4 (02:17→21:08)
[2017-01-01] MEDS: DILAUDID IV PRN ×7 (02:35→21:07)
[2017-01-01] MEDS: PHENERGAN IV PRN ×3 (05:50→17:59)
[2017-01-01] MEDS: KEFZOL 2 GM/D5W 2 GM/50 ML IVPB IV SCH ×3 (06:02→21:07)
[2017-01-01 06:38] LABS: HEMATOCRIT 27.7 % (37.0-47.0); HEMOGLOBIN 9.1 g/dL (12.0-16.0); MCH 26.4 PG (27-31); MCHC 32.9 g/dL (33-37); MCV 80.3 FL (81-99); MPV 8.3 FL (7.4-10.4); RBC 3.45 XMIL (4.2-5.4)
[2017-01-01 06:57] LABS: AGAP 13; BUN 10 mg/dL (8-22); CALCIUM 9.1 mg/dL (8.8-10.2); CHLORIDE 100 mmol/L (98-107); COSMO 273; POTASSIUM 4.2 mmol/L (3.5-5.1); SODIUM 137 mmol/L (136-145); TCO2 24 mmol/L (25-35)
[2017-01-01] MEDS: HYDREA PO SCH ×2 (08:32→21:08)
[2017-01-01] MEDS: FOLIC ACID PO SCH (08:32)
[2017-01-01 15:23] LABS: BASO% 0.2 % (0.0-0.8); EOS# 0.16 X1000 (0.0-0.7); HEMATOCRIT 27.7 % (37.0-47.0); IMM GRAN# 0.05 X1000 (0.0-0.04); IMM GRAN% 0.3 % (0.0-0.5); LYMPH# 4.67 X1000 (1.2-3.4); LYMPH% 27.8 % (20.5-51.1); MANUAL DIFF NEEDED? YES; MCH 25.7 PG (27-31); MCHC 32.5 g/dL (33-37); MCV 79.1 FL (81-99); MONO# 1.16 X1000 (0.11-0.59); MONO% 6.9 % (1.7-9.3); MPV 7.9 FL (7.4-10.4); NEUT% 63.8 % (42.2-75.2); PLT 199 X1000 (130-400); RETIC% 8.43 % (0.8-2.1); RETIC-HE 25.2 PG (28.2-36.6)
[2017-01-01 15:51] LABS: EOS 1 % (1-10); LYMPHS 23 % (21-51); MONO 4 % (1-9); NRBC 3 % (0-0)
[2017-01-01 15:52] LABS: TARGET CELLS 1+
[2017-01-02] MEDS: PHENERGAN IV PRN ×4 (00:17→18:41)
[2017-01-02] MEDS: DILAUDID IV PRN ×8 (00:17→21:58)
[2017-01-02] MEDS: SODIUM CHLORIDE 0.9% INJ PRN ×4 (00:17→18:41)
[2017-01-02] MEDS: LOVENOX SUBQ SCH (00:17)
--- NOTE | 2017-01-02 00:53 | PROGRESS NOTE ---
DATE: 01/02/2017 SUBJECTIVE: The patient has no focal complaints, persistent pain. OBJECTIVE: vital signs: Blood pressure 105/52, heart rate of 83, respiratory rate 20, temperature 97.9. Cardiovascular: Regular rate and rhythm. Pulmonary: Bilateral breath sounds. Clear to auscultation. GI: Soft, nontender, nondistended. Bowel sounds are positive. ASSESSMENT AND PLAN: 1. Sickle cell crisis. Appears to be doing okay. 2. MSSA pneumonia. Continue antibiotics and continue empiric treatment. 3. Chest wall infection, currently cefazolin. cc: Bharat Hernadez MD
[2017-01-02] MEDS: BENADRYL IV PRN ×4 (03:25→21:58)
[2017-01-02] MEDS: KEFZOL 2 GM/D5W 2 GM/50 ML IVPB IV SCH ×3 (06:28→21:58)
[2017-01-02] MEDS: FOLIC ACID PO SCH (09:29)
[2017-01-02] MEDS: HYDREA PO SCH ×2 (09:29→21:58)
--- NOTE | 2017-01-02 14:55 | PROGRESS NOTE ---
DATE: 01/02/2017 PRESENT ILLNESS: The patient is being treated for an oxacillin-sensitive Staph aureus pneumonia and an infected Port-A-Cath site on the right side of her chest. Her current Port-A-Cath does not appear to be infected. MEDICATIONS: The patient is receiving Ancef at a dose of 2 g IV every 8 hours. She has been on antibiotics now for 10 days. She has been on intravenous Ancef. PHYSICAL EXAMINATION: Vital Signs: Temperature is 97.5, pulse 73, respirations 16, blood pressure 123/61. Generally: Is somewhat lethargic, but does not appear otherwise to be ill. She is in no acute distress. Cardiovascular: Heart rate is regular. Abdomen: Soft and nontender. Lungs: Clear to auscultation. Thorax: Patient has a Port-A-Cath present in the left upper chest. That site is not swollen or draining. She also has a prior Port-A-Cath site on the right chest and that site too also is not swollen or draining and it is not tender. There is a small amount of induration which I think represents a scar from the surgical procedure. LAB AND X-RAY: Today, the CBC shows a white count of 16,820, hemoglobin 9 and platelet count 199,000. Creatinine 0.5. GFR is greater than 60. There is no new x-ray today. ASSESSMENT AND PLAN: The patient has Staph pneumonia and infected Port-A-Cath. My plan is to continue with Ancef in a dose of 2 g IV every 8 hours. Today, her white count is elevated and I have ordered 2 blood cultures and a chest x-ray. COMORBIDITY: The patient has sickle cell disease and frequently requires IV treatment, consisting of fluids and medication. Continued need of IV medication and fluids, requires a long-term catheter because the patient otherwise is out of peripheral IV sites. cc: Audi Castellanos MD
--- NOTE | 2017-01-02 17:26 | PROGRESS NOTE ---
DATE: 01/02/2017 SUBJECTIVE: The patient appears to be uncomfortable but does not have any complaints. She does not talk a whole lot. OBJECTIVE: Vital Signs: Blood pressure 113/62, pulse of 81, respirations 16, temperature 98.4 degrees, saturation is 100% on room air. General Appearance: Well-developed, well-nourished black female in no acute distress. HEENT: Anicteric. Clear conjunctivae. Neck: Supple. No JVD. No bruit. Cardiovascular: S1, S2. Normal rate and rhythm. No murmur, rubs, or gallops. Pulmonary: Clear to auscultation bilaterally. GI: Soft, nontender, nondistended. Normoactive bowel sounds. Musculoskeletal: No clubbing, cyanosis, or edema. LABORATORY: White count 16.82, hemoglobin 9.0, hematocrit of 27.7, platelets of 199,000. Chemistry: Sodium 137, potassium 4.2, chloride 100, bicarb 24, BUN 10, creatinine 0.5, glucose of 105. ASSESSMENT AND PLAN: This is a 21-year-old, sickle cell patient admitted to the hospital for sickle cell crisis. 1. Sickle cell crisis. Improving. 2. Methicillin-sensitive Staphylococcus aureus pneumonia. Will continue antibiotics with cefazolin, seems to be improving, on day 10 of 14 days. ID is following. 3. We will continue pain management. 4. Deep vein thrombosis prophylaxis. The patient is on Lovenox. 5. Code status. The patient is a full code.
--- NOTE | 2017-01-02 17:40 | Diag Imaging Result Document ---
PROCEDURE NAME: CHEST-2 VIEWS - 01/02/2017 FRONTAL AND LATERAL CHEST, TWO VIEWS: COMPARISON : 12/22/2016. FINDINGS: The patient has a left subclavian Port A Catheter. No pneumothorax. The lungs are well expanded. The heart is not enlarged. The vessels are not distended. There are no infiltrates. No pleural effusions. IMPRESSION: No pneumonia.
[2017-01-03] MEDS: SODIUM CHLORIDE 0.9% INJ PRN ×4 (00:59→19:24)
[2017-01-03] MEDS: PHENERGAN IV PRN ×4 (00:59→19:24)
[2017-01-03] MEDS: DILAUDID IV PRN ×8 (01:00→22:24)
[2017-01-03] MEDS: LOVENOX SUBQ SCH ×3 (01:16→22:39)
[2017-01-03] MEDS: BENADRYL IV PRN ×4 (04:09→22:20)
[2017-01-03 06:40] LABS: HEMOGLOBIN 8.8 g/dL (12.0-16.0); MCH 26.3 PG (27-31); MCHC 32.6 g/dL (33-37); MCV 80.8 FL (81-99); RBC 3.34 XMIL (4.2-5.4)
[2017-01-03] MEDS: KEFZOL 2 GM/D5W 2 GM/50 ML IVPB IV SCH ×3 (06:47→21:24)
[2017-01-03 06:56] LABS: AGAP 13; BUN 12 mg/dL (8-22); CALCIUM 8.8 mg/dL (8.8-10.2); CHLORIDE 99 mmol/L (98-107); COSMO 277; SODIUM 139 mmol/L (136-145); TCO2 27 mmol/L (25-35)
[2017-01-03] MEDS: FOLIC ACID PO SCH (09:56)
[2017-01-03] MEDS: HYDREA PO SCH ×2 (09:56→21:24)
[2017-01-03] MEDS: DURAGESIC 12 MICROGM/HR PATCH TD SCH (11:24)
--- NOTE | 2017-01-03 13:33 | PROGRESS NOTE ---
DATE: 01/03/2017 SUBJECTIVE DATA: The patient reports back pain but has no new or worsening complaints. No acute events noted overnight. Patient resting in bed comfortably without distress noted. OBJECTIVE DATA: Vital Signs: Blood pressure is 98/62, heart rate 97, respiratory rate 18, O2 saturation 98% on room air. Temperature is 97.6 degrees. General: This is a well-developed, well-nourished 21-year-old, -[place] female, lying in the hospital bed in no acute distress. Neurologic: The patient is awake, alert, and oriented. She follows commands without focal deficits. HEENT: Head atraumatic, normocephalic. Pupils equal, round, and react to light. Oral mucosa moist. Trachea midline. No JVD or carotid bruits. Chest clear to auscultation bilaterally. Old port site does not have any obvious drainage or erythema. Abdomen soft, nondistended, nontender. Bowel sounds positive. Extremities. No edema, clubbing, or cyanosis. Pulses palpable bilaterally. DIAGNOSTIC DATA: WBC 17.15, hemoglobin 8.8, hematocrit 27, platelet count 183, 000. Sodium 139, potassium 4.0, chloride 99, CO2 of 27, anion gap 13. BUN 12, creatinine 0.4, glucose 86. Calcium 8.8. ASSESSMENT AND PLAN: 1. Methicillin-susceptible Staphylococcus aureus port site infection: Continue antibiotics with cefazolin per Dr. Castellanos's recommendation, day 11 of 14. Overall, this is improving. 2. Sickle cell crisis: The patient continues to report pain in her lower back and continue pain medications as prescribed. Overall, this seems to be improving. 3. Deep venous thrombosis prophylaxis with Lovenox. DISCHARGE PLANNING: The patient will likely be going home after the above has resolved. Further recommendations to follow. Dictated by CORRINA King for Tony Bolivar Marshall MD cc: CORRINA King Addendum: I personally evaluated and examined the patient in conjunction to the FUNCTIONAL ARCHITECT and agreed with his assessments and plans. We will plan to finish up her abx in house and home on Saturday. NELLA
[2017-01-04] MEDS: PHENERGAN IV PRN ×3 (01:43→14:17)
[2017-01-04] MEDS: DILAUDID IV PRN ×5 (01:44→14:17)
[2017-01-04] MEDS: SODIUM CHLORIDE 0.9% INJ PRN (01:46)
[2017-01-04] MEDS: DURAGESIC 12 MICROGM/HR PATCH TD SCH (03:18)
[2017-01-04] MEDS: BENADRYL IV PRN ×2 (04:38→11:04)
[2017-01-04] MEDS: KEFZOL 2 GM/D5W 2 GM/50 ML IVPB IV SCH (05:25)
[2017-01-04 06:55] LABS: HEMOGLOBIN 8.7 g/dL (12.0-16.0); MCH 26.5 PG (27-31); MCHC 33.5 g/dL (33-37); MCV 79.3 FL (81-99); MPV 7.9 FL (7.4-10.4); RBC 3.28 XMIL (4.2-5.4)
[2017-01-04 07:28] LABS: AGAP 13; BUN 9 mg/dL (8-22); CALCIUM 8.6 mg/dL (8.8-10.2); CHLORIDE 99 mmol/L (98-107); COSMO 275; POTASSIUM 3.8 mmol/L (3.5-5.1); SODIUM 138 mmol/L (136-145); TCO2 26 mmol/L (25-35)
[2017-01-04] MEDS: FOLIC ACID PO SCH (09:12)
[2017-01-04] MEDS: HYDREA PO SCH (09:12)
--- NOTE | 2017-01-04 11:17 | PROGRESS NOTE ---
DATE: 01/04/2017 PRESENT ILLNESS: The patient is being treated for an oxacillin-sensitive Staph aureus pneumonia and an infected Port-A-Cath site on the right side of the chest. Her Port-A-Cath, which is on the left upper part of the chest does not appear infected at this time. MEDICATIONS: The patient is on Ancef in a dose of 2 g IV every 8 hours. This is day 10 of treatment with Ancef. PHYSICAL EXAMINATION: Vital Signs: Temperature is 98.5 degrees, pulse 90, respirations 18, blood pressure 129/71. General: This is a somewhat ill-appearing, young female. She is in no acute distress. Lungs: Clear to auscultation. Cardiovascular: Regular heart rate. Abdomen: Soft and nontender. Chest: Patient has a Port-A-Cath present on the left side. The site is not swollen or tender. On the right side of the chest, there is an indurated area that is getting smaller. This is where the patient's Port-A-Cath was prior to being put on the left side. The area is not fluctuant; it is firm. No drainage is noted from it. LAB AND X-RAY: Chest x-ray shows clear lungs. Urinary test was negative. Creatinine is 0.6. GFR is greater than 60. The CBC shows a white count down to 12,720, hemoglobin 8.7, and platelet count 183,000. ASSESSMENT AND PLAN: The patient's pneumonia has cleared up. Hopefully, the area in the right chest where she previously had a Port-A-Cath is clearing as well. The current Port-A-Cath does not seem to be infected. My plan would be to continue Ancef for another 1-2 weeks in addition to what she already has. COMORBIDITY: The patient's comorbidity is that she has sickle cell and has frequent crises, during which time she needs an IV for medication or hydration. Unfortunately, the patient is out of peripheral IV access. cc: Audi Castellanos MD
[2017-01-04] MEDS ORDERED: HEPARIN ONE (12:28)
[2017-01-04 13:55] VITALS: BP 112/63
--- NOTE | 2017-01-04 16:57 | DISCHARGE SUMMARY ---
ADMISSION DATE: 12/23/2016 DISCHARGE DATE: 01/04/2017 PRIMARY CARE PHYSICIAN: Rigo Salmon MD. DISCHARGE DIAGNOSES: 1. Methicillin-sensitive Staphylococcus aureus pneumonia. 2. Sickle cell crisis. 3. Pain seeker. 4. Narcotic abuse. DISCHARGE MEDICATIONS: 1. Hydroxyurea 50 mg p.o. b.i.d. 2. Folic acid 1 mg p.o. daily. 3. Fentanyl patch 12 mcg patch every 72 hours. 4. [place] 10 every 6 hours as needed for pain. 5. Ancef 1 g q.8 hours for the next [address] Castellanos' recommendations. LABORATORY AT DISCHARGE: White count 12.72, hemoglobin 8.7, hematocrit 26.0, platelets 183,000. Chemistry: Sodium 138, potassium 3.8, chloride 99, bicarbonate 26, BUN 9, creatinine 0.6, glucose 106. HOSPITAL COURSE: The patient is a 21-year-old known to our service for multiple admissions for her sickle cell crisis and port infections. She came to the hospital at this time with right- sided chest pain and fever. She was found to have a mini-port infection with MSSA that was complicated with bacteremia and pneumonia. The patient has been on Ancef by [facility] at home. From the last admission the patient had the port removed and had a new port implant. The patient came in with a temperature of 102 degrees. She was admitted to our service with ID consult. Her blood cultures have remained negative, however, her wound culture did grow out MSSA and a chest CT showed right upper lobe and right middle lobe opacity. Dr. Castellanos recommended to keep the patient on Ancef for the next 2 weeks. The patient has received 12 days of her 14 days while she was in the hospital. However, because of the recurrent infection Dr. Castellanos feels it is warranted for her to do 2 more weeks of home Ancef. The patient of course does not want to go home because she thinks that she will continue to have pain and oral pain medication will not be able to keep her at bay. The patient also has a fentanyl patch that was prescribed during the last admission. I continued the patch and we will give her 30 tablets of [place] and have her follow up with Dr. Salmon next week. Dr. Castellanos will see her as an outpatient and she will continue with [facility] for her home antibiotics. DISCHARGE PHYSICAL EXAMINATION: Vital signs: Blood pressure 129/71, pulse of 90, respirations 18, temperature 98.5 degrees, O2 sat 100% on room air. General: Well-developed, well-nourished, black female, in no acute distress until we told her she would be discharged home and she started crying. Neck: Supple. No JVD. No bruit. Cardiovascular: S1, S2. Normal rate and rhythm. No murmur, rubs or gallops. Pulmonary: Clear to auscultation bilaterally. Gastrointestinal: Soft, nontender, nondistended. Normoactive bowel sounds. Extremities: No clubbing, cyanosis, or edema. PLAN: We will discharge the patient home. CONDITION: Stable and improving. ACTIVITY: As tolerated. FOLLOWUP: The patient needs to follow up with Dr. Salmon next week. TOTAL DISCHARGE TIME: 35 minutes. cc: Rigo Salomn MD
--- NOTE | 2017-01-07 04:50 | PROGRESS NOTE ---
DATE: 01/04/2017 ADDENDUM: There has been some change in the patient's plans. Instead of going home on cefazolin she will be going home on Keflex 500 mg p.o. every 8 hours for 2 weeks. I have electronically transmitted the prescription to her pharmacy. In addition, I will be seeing the patient back in the office 3 weeks after discharge. cc: Audi Castellanos MD
== END 2017-01-04 15:46 | disposition home health service (06) ==
LOC: ED 15:44 → 4N 12-23 01:05 → SUATTDRO 12-23 01:05 → 4N 12-23 02:05
PROVIDERS: ATTEND Internal Medicine

== ENCOUNTER 2017-01-08 11:48 | Inpatient (IN) ==
--- NOTE | 2017-01-08 16:15 | EKG Report ---
Test Performed on : 01/08/2017 12:18:47 PM Test Reason : chest pain Blood Pressure : / mmHG Vent. Rate : 079 BPM Atrial Rate : 079 BPM P-R Int : 128 ms QRS Dur : 090 ms QT Int : 388 ms P-R-T Axes : 035 028 -14 degrees QTc Int : 444 ms Normal sinus rhythm. T wave abnormality, consider inferior ischemia Abnormal ECG When compared with ECG of 23-NOV-2016 12:20, T wave inversion less evident in Anterior leads Unconfirmed Result
[2017-01-08] MEDS ORDERED: DILAUDID IV ONE ×2 (17:06→17:48)
[2017-01-08] MEDS ORDERED: SODIUM CHLORIDE 0.9% INJ ONE (17:07)
[2017-01-08] MEDS ORDERED: PHENERGAN IV ONE (17:07)
[2017-01-08 17:14] LABS: BASO% 0.4 % (0.0-0.8); EOS# 0.25 X1000 (0.0-0.7); EOS% 1.4 % (0.0-10.0); HEMATOCRIT 27.7 % (37.0-47.0); HEMOGLOBIN 9.3 g/dL (12.0-16.0); IMM GRAN# 0.06 X1000 (0.0-0.04); IMM GRAN% 0.3 % (0.0-0.5); LYMPH# 5.28 X1000 (1.2-3.4); LYMPH% 29.9 % (20.5-51.1); MANUAL DIFF NEEDED? NO; MCH 26.1 PG (27-31); MCHC 33.6 g/dL (33-37); MCV 77.8 FL (81-99); MONO# 0.91 X1000 (0.11-0.59); MONO% 5.2 % (1.7-9.3); MPV 8.1 FL (7.4-10.4); NEUT% 62.8 % (42.2-75.2); PLT 224 X1000 (130-400); RBC 3.56 XMIL (4.2-5.4)
[2017-01-08 17:42] LABS: AGAP 16; ALBUMIN 4.5 g/dL (3.5-5.0); ALKALINE PHOSPHATASE 105 U/L (32-104); BUN 12 mg/dL (8-22); CALCIUM 9.2 mg/dL (8.8-10.2); CHLORIDE 101 mmol/L (98-107); COSMO 278; GOT 28 U/L (10-30); GPT 19 U/L (10-36); POTASSIUM 3.6 mmol/L (3.5-5.1); SODIUM 140 mmol/L (136-145); TCO2 23 mmol/L (25-35); TOTAL BILIRUBIN 1.01 mg/dL (0.20-1.00); TOTAL PROTEIN 8.7 g/dL (6.3-8.3)
[2017-01-08] MEDS ORDERED: NS 2,000 ML IV ONE (17:44)
[2017-01-08] MEDS ORDERED: NS 1,000 ML IV ONE (17:45)
[2017-01-08] MEDS ORDERED: BENADRYL IV ONE (17:48)
[2017-01-08 19:46] LABS: URINE MICRO REVIEW NEEDED? NO; URINE SOURCE CLEAN CATCH
[2017-01-08 20:07] LABS: BILIRUBIN URINE NEGATIVE (NEGATIVE); BLOOD URINE NEGATIVE (NEGATIVE); COLOR YELLOW; GLUCOSE URINE NEGATIVE (NEGATIVE); LEUKOCYTES URINE NEGATIVE (NEGATIVE); NITRITE URINE NEGATIVE (NEGATIVE); PROTEIN URINE NEGATIVE (NEGATIVE); SP GRAVITY URINE 1.014; TURBIDITY URINE CLEAR (CLEAR); UROBILINOGEN URINE NORMAL (NORMAL)
[2017-01-08 20:09] LABS: UR EPITHELIAL CELLS <10 /HPF (<10); URINE BACTERIA NEGATIVE /HPF; URINE RBC <10 /HPF (<10); URINE WBC <10 /HPF (<10)
--- NOTE | 2017-01-08 20:16 | HISTORY AND PHYSICAL ---
CHIEF COMPLAINT: Back pain and chest pain, fever. HISTORY OF PRESENT ILLNESS: A 21-year-old, female with a past medical history of sickle cell disease, avascular necrosis of left femoral head, depression and cavitary lesion recently discharged from this hospital on 01/04/2017 secondary to MSSA pneumonia and an infected Port-A-Cath on the right side of the chest that was removed. She is coming in today with a chief complaint of back pain and chest pain. Also she states that she has been having fever for the past day. Here in the emergency department the temperature is normal but she states that at home the temperature went up to 103.1, so she decided to come to the emergency department. In the emergency department she was found to have a WBC of 17.6, hemoglobin 9.3, hematocrit 27.7, platelets of 222,000 with acceptable CMP. Given her past medical history and recent infection, leukocytosis and apparently fever at home, this patient will be admitted for treatment. I will continue with the Ancef, that was recommended by Dr. Castellanos previous to her discharge and supportive treatment as well. REVIEW OF SYSTEMS: Skin is pale. All 14 point review of systems were reviewed and all were negative except as per HPI. ALLERGIES: Latex, Demerol, vancomycin and morphine. FAMILY HISTORY: She has several first-degree relatives with sickle cell. No heart disease, no diabetes, no cancer. PAST SURGICAL HISTORY: Cholecystectomy, Port-A-Cath placement and removal. SOCIAL HISTORY: No smoking history. No drinking history or drugs other than her prescribed medications. PAST MEDICAL HISTORY: Sickle cell, vascular necrosis of left femoral head, depression. LABORATORY: WBC 17.6, hemoglobin 9.3, hematocrit 27.7, platelets 224,000. Sodium 140, potassium 3.6, chloride 101, bicarbonate 23, BUN 12, creatinine 0.5, glucose 8.5, calcium 9.2, albumin 4.5. PHYSICAL EXAMINATION: VITAL SIGNS: Temperature 98.5 degrees, pulse 88, respiratory rate 18, blood pressure 108/77, oxygen saturation 99 on room air. HEENT: Head is normocephalic. No trauma. PERRLA. SKIN: Pale. CHEST: Clear to auscultation. No wheezing. No rales. She has tenderness to palpation at the level of the sternal area and lower back. ABDOMEN: Soft, nontender, nondistended. No hepatosplenomegaly. EXTREMITIES: No edema. No clubbing. No cyanosis. NEUROLOGICAL EXAMINATION: The patient is alert and oriented x3. No focal neurological deficits. ASSESSMENT AND PLAN: 1. Fever. This patient was recently discharged secondary to Methicillin-sensitive Staphylococcus aureus, pneumonia and port infection. I will continue with Ancef that was prescribed by our Infectious Disease doctor. Also I will hydrate this patient and we will monitor the lab work. I asked for a chest x-ray, blood culture, urine culture as well. 2. Sickle cell disease. I do not feel this patient is in active crisis. I will continue with supportive care, IV fluid resuscitation. 3. Anemia. Her hemoglobin is above 9. I will monitor the hemoglobin and hematocrit daily. 4. Narcotic abuse. This patient already received some hydromorphone in the emergency department. I do not feel this patient has a sickle cell crisis. I will continue with her home medications and I will put her on hydromorphone q.8 hours but probably tomorrow I will change it to q.12 hours. cc: Eros Redmond MD
--- NOTE | 2017-01-08 20:42 | Diag Imaging Result Document ---
PROCEDURE NAME: CHEST-2 VIEWS - 01/08/2017 STUDY: 2 views of the chest. There is a Port-A-Cath on the left. There is no evidence of acute cardiac or pulmonary disease. Compared to the previous study of 01/02/2017, there has been no significant change in the appearance of the chest. IMPRESSION: No evidence of acute disease.
[2017-01-08] MEDS ORDERED: ZOFRAN IV PRN (21:15)
[2017-01-08] MEDS: HEPARIN SUBQ SCH ×2 (21:42→21:55)
[2017-01-08] MEDS: DILAUDID IV PRN (21:49)
[2017-01-08] MEDS: KEFZOL 1 GM/D5W 1 GM/50 ML IVPB IV SCH (21:50)
[2017-01-08] MEDS: HYDREA PO SCH (21:52)
[2017-01-08] MEDS: NORCO-10 PO PRN (23:50)
[2017-01-09] MEDS: HEPARIN SUBQ SCH ×5 (05:15→21:48)
[2017-01-09] MEDS: DILAUDID IV PRN (05:24)
[2017-01-09] MEDS: KEFZOL 1 GM/D5W 1 GM/50 ML IVPB IV SCH ×4 (05:25→21:44)
[2017-01-09 05:54] LABS: MANUAL DIFF NEEDED? NO
[2017-01-09 06:08] LABS: BASO% 0.4 % (0.0-0.8); EOS# 0.21 X1000 (0.0-0.7); EOS% 1.8 % (0.0-10.0); HEMATOCRIT 23.4 % (37.0-47.0); HEMOGLOBIN 7.5 g/dL (12.0-16.0); IMM GRAN# 0.02 X1000 (0.0-0.04); IMM GRAN% 0.2 % (0.0-0.5); LYMPH# 3.41 X1000 (1.2-3.4); MCH 25.2 PG (27-31); MCHC 32.1 g/dL (33-37); MCV 78.5 FL (81-99); MONO# 0.77 X1000 (0.11-0.59); MONO% 6.8 % (1.7-9.3); NEUT% 60.8 % (42.2-75.2); PLT 182 X1000 (130-400); RBC 2.98 XMIL (4.2-5.4)
[2017-01-09 06:22] LABS: AGAP 10; BUN 9 mg/dL (8-22); CALCIUM 8.2 mg/dL (8.8-10.2); CHLORIDE 109 mmol/L (98-107); COSMO 285; POTASSIUM 3.8 mmol/L (3.5-5.1); SODIUM 144 mmol/L (136-145); TCO2 25 mmol/L (25-35)
[2017-01-09] MEDS: HYDREA PO SCH ×2 (09:23→21:45)
[2017-01-09] MEDS: FOLIC ACID PO SCH (09:23)
[2017-01-09] MEDS: NORCO-10 PO PRN ×4 (10:01→22:01)
[2017-01-09] MEDS ORDERED: DURAGESIC 12 MICROGM/HR PATCH TD SCH ×2 (13:00→22:00)
[2017-01-09] MEDS ORDERED: DILAUDID IV ONE (13:01)
[2017-01-09] MEDS: NS 1,000 ML IV SCH (13:35)
--- NOTE | 2017-01-09 13:50 | PROGRESS NOTE ---
DATE: 01/09/2017 SUBJECTIVE: This patient is still complaining of back pain and chest pain. "I do not think this patient was admitted with a crisis", and she has been asking specifically for Dilaudid/hydromorphone. I do believe that this patient has narcotic dependence. Even though she was admitted for an apartment fever at home and no sickle cell crisis, she has been asking for pain medication. I repeat, I do not think this patient has a sickle cell crisis. OBJECTIVE: Vital Signs: Temperature 99.1 degrees, pulse 64, respiratory rate 18, blood pressure 144/59, oxygen saturation 100% on room air. HEENT: Head normocephalic. No trauma. PERRLA. Skin: Pale. Chest: Clear to auscultation. No wheezing. No rales. She has some tenderness to palpation at the level of the sternal area and lower back. On her chest, she has a Port-A-Cath that does not look infected, no pain. Abdomen: Soft, nontender, nondistended. No hepatosplenomegaly. Extremities: No edema, no clubbing, no cyanosis. Neurological: The patient is alert and oriented x3. No focal neurological deficits. LABORATORY: WBC 11.3, hemoglobin 7.5, hematocrit 23.4, platelets 182. Sodium 144, potassium 3.8, chloride 109, bicarbonate 25, BUN 9, creatinine 0.5, glucose 91, calcium 8.2. ASSESSMENT AND PLAN: 1. Fever, as per the patient she had a fever at home. She measured it and it was 103.1. She came to the emergency department basically on her home medications here, and so far the temperature has been normal. Actually all the vital signs are normal. I asked for urine and blood culture, and they are normal as well. 2. Sickle cell disease, I do not feel that this patient is in active crisis. I will continue with supportive care, intravenous fluid resuscitation, and order medication to manage her pain. 3. Anemia. The hemoglobin today is 7.5. I will continue monitoring her hemoglobin and hematocrit daily. 4. Narcotic abuse. This patient has been asking for hydromorphone, not only in the emergency, but also on the medical floor, even though I do not think she has sickle cell crisis. I will continue with her home medication, and I gave her already one dose of hydromorphone 1 mg times one. When I entered to the room to examine this patient, she was doing fine and, as soon as she saw me, she started complaining about the pain. cc: Eros Redmond MD
[2017-01-10] MEDS: NS 1,000 ML IV SCH ×2 (04:46→08:50)
[2017-01-10 05:06] VITALS: BP 130/62
[2017-01-10] MEDS: KEFZOL 1 GM/D5W 1 GM/50 ML IVPB IV SCH (05:12)
[2017-01-10 06:15] LABS: MANUAL DIFF NEEDED? NO
[2017-01-10 06:20] LABS: BASO% 0.4 % (0.0-0.8); EOS# 0.23 X1000 (0.0-0.7); HEMATOCRIT 24.4 % (37.0-47.0); LYMPH# 4.03 X1000 (1.2-3.4); LYMPH% 35.9 % (20.5-51.1); MCH 25.5 PG (27-31); MCHC 32.8 g/dL (33-37); MCV 77.7 FL (81-99); MONO% 7.1 % (1.7-9.3); MPV 8.1 FL (7.4-10.4); NEUT% 54.6 % (42.2-75.2); PLT 215 X1000 (130-400); RBC 3.14 XMIL (4.2-5.4)
[2017-01-10] MEDS: HEPARIN SUBQ SCH (07:37)
[2017-01-10] MEDS: NORCO-10 PO PRN (08:50)
[2017-01-10] MEDS: HYDREA PO SCH (08:51)
[2017-01-10] MEDS: FOLIC ACID PO SCH (08:51)
[2017-01-10] MEDS ORDERED: NORCO-10 PO PRN (09:12)
[2017-01-10] MEDS ORDERED: DILAUDID IV ONE (09:56)
[2017-01-10] MEDS ORDERED: HEPARIN INJ ONE (11:05)
--- NOTE | 2017-01-11 07:55 | DISCHARGE SUMMARY ---
ADMISSION DATE: 01/08/2017 DISCHARGE DATE: 01/10/2017 CONSULTATIONS: None. PERTINENT PROCEDURES: Chest x-ray showed no evidence of acute disease of [place]- A-Cath on the left. DISCHARGE DIAGNOSES: 1. Subjective fever as per the patient at home. She stated she was 103.1; however, when she came to the ED and since admission patient has only had a low-grade fever of 99.1 x 1. Vital signs remained stable. Urine and blood cultures have been negative. White count has been stable. 2. Sickle cell disease without active crisis. Continue on home medications. 3. Anemia. Hemodynamically stable. Hemoglobin and hematocrit was monitored closely. 4. Narcotic abuse. Patient was continued on her home medications. However, she has been asking for Dilaudid not only in the emergency room, but also on the medical floor, even though the patient is not in a sickle cell crisis. Dr. Lindquist, originally was assigned the patient. She asked for another doctor. Dr. Carrera took over care. On the same day that he took over care he explained to Ms. 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 She has already had an episode of an accidental overdose, development of tolerance as well as dependence. The patient states that she understood and did not fully understand this before; however, she has agreed to be discharged home today with her home medications with home health and continual for her IV antibiotics. HOSPITAL COURSE: Ms. Henley is a 21-year-old, -[place] female, well known to our service with a past medical history of sickle cell disease, avascular necrosis of the left femoral head, depression and cavitary lesion recently discharged from the hospital on 2016 secondary to an SSA pneumonia and infected Port-A-Cath on the right side of the chest that was removed. She does have a left Port-A-Cath at this time. She came in with a chief complaint of back pain and chest pain and reported a temp of 103.1 degrees while at home. In the ED, she was found have a white count of 17, hemoglobin of 9, hematocrit 27, platelet count of 222,000. Acceptable CMT. Given her past medical history of recent infectious leukocytosis and apparent fever at home, the patient was admitted for treatment. She was continued on her home medications. She was not in a sickle cell crisis. She did get Dilaudid in the ED. Dr. Lindquist did also give her 1 dose of Dilaudid. She has been a febrile except for a low grade fever of 99.1. Her white count has trended down. She remained on her IV antibiotics. Her vital signs have remained stable. Again, she is not in a sickle cell crisis. She asked to switch from Dr. Lindquist to another doctor because she was not getting the pain medication that she wanted. Dr. Carrera took over care. He went in and explained to the patient that she would get what she was getting at home. She was not in a sickle cell crisis, and then he explained again all the reasons that it was not good for her to receive IV pain medication every time she came into the hospital because of long-term affects that could include nausea, vomiting, abdominal distention, bloating, and constipation even more damaging, liver damage, brain damage due to hypoxia resulting from respiratory depression. The patient already has had an accidental overdose, development of tolerance and dependence. The patient stated that she did not believe that she had been fully made aware of this. She states that she does understand and she agreed to be discharged home today at her request. PHYSICAL EXAMINATION: Vital signs at the time of her discharge: Temperature 98.2 degrees, heart rate 64, respirations 14, blood pressure 130/62, O2 is 100% on room air. White count at the time of her discharge was 11, hemoglobin 8 and hematocrit 24. DISCHARGE MEDICATIONS: 1. Keflex 500 mg p.o. q.8 hours. 2. Fentanyl patch 1 each topically 72 hours. 3. Folic acid 1 mg p.o. daily. 4. [place] 10 1 each p.o. q.6 hours p.r.n. pain. 5. Hydroxyurea 500 mg p.o. b.i.d., as well as continued on her home IV antibiotics with [facility] until her full course is completed. Patient can return to the ED for any worsening of symptoms. DISCHARGE TIME: 32 minutes. Dictated by CORRINA Shetty for Tray Baker MD cc: MD NELLA Verma
--- NOTE | 2017-01-15 05:41 | PROVIDER DOCUMENTATION ---
This chart was entered by Jhon Stephenson Scribe, acting as scribe for Sher Mitchell MD. HPI-General Adult - General Chief Complaint: Sickle Cell Crisis Stated Complaint: SICKLE CELL CRISIS Time Seen by Provider: 01/08/17 17:05 Source: patient Allergies/Adverse Reactions: Patient Allergies Allergy/AdvReac Type Severity Reaction Status Date / Time latex Allergy Mild RASH Verified 01/08/17 15:43 meperidine HCl * AdvReac Severe SHORTNESS Verified 01/08/17 15:43 [From Demerol] OF BREATH; AND HEADACHE vancomycin AdvReac Severe RASH Verified 01/08/17 15:43 morphine AdvReac Mild HEADACHE Verified 01/08/17 15:43 AND HIVES Home Medications: Home Medication List Medication Instructions Recorded Confirmed Last Taken Type Hydroxyurea 500 mg PO BID 06/17/16 01/08/17 01/08/17 08:00 History Folic Acid 1 mg PO DAILY #30 tablet 09/14/16 01/08/17 01/08/17 08:00 Rx Fentanyl 12 Microgm/Hr Patch 1 each TD Q72H #0 patch 12/10/16 01/08/17 01/06/17 08:00 Rx [Duragesic 12 Microgm/Hr Patch] Cephalexin [Keflex] 500 mg PO Q8H #42 capsule 01/04/17 01/08/17 01/08/17 08:00 Rx Hydrocodone/APAP 10 mg/325 mg 1 each PO Q6H PRN PRN #20 tablet 01/10/17 Unknown Rx [[place]-10] - History of Present Illness -Gen Adult Nature of Presenting Problems: 21 y/o F presents to the ED c/o back and chest pain. states she has been having fever as high as 103.2. Recently had infected port removed and replaced 2 weeks ago. denies all other symptoms. no other voiced complaints. Location of Pain/Injury: reports: chest, back Pain Radiation: reports: no radiation Quality of Pain: reports: aching Severity: reports: mild Onset/Duration: reports: 24 hours ago Timing: reports: still present Context/Activities at Onset: reports: none Modifying Factors: improves with: nothing Associated Symptoms: reports: back/neck pain, chest pain, fever/chills Similar Symptoms Previously?: Yes Recently seen or treated by another doctor?: Yes Review of Systems - Adult - REVIEW OF SYSTEMS - ADULT Constitutional: reports: chills, fever Eyes: reports: no symptoms reported Ears, Nose, Mouth & Throat: reports: no symptoms reported Cardiovascular: denies: chest pain, palpitations Respiratory: denies: cough, shortness of breath Gastrointestinal: denies: diarrhea, nausea, vomiting Genitourinary: denies: dysuria, discharge Musculoskeletal: reports: bone pain, muscle aches Integumentary: denies: itching, rash Neurological: denies: dizziness/vertigo, slurred speech Psychiatric: reports: no symptoms reported Endocrine: reports: no symptoms reported Hematologic/Lymphatic: reports: no symptoms reported Allergic/Immunologic: reports: no symptoms reported All Other Systems: Reviewed and Negative Past History - Adult - PAST MEDICAL HISTORY-ADULT Review of Records: reports: Nursing Assessment Review, Medications Reviewed Major Childhood Illnesses: reports: denies history, history unknown Cardiovascular: reports: denies history Respiratory: reports: asthma Gastrointestinal: reports: denies history Obstetrical/Gynecological: reports: denies history Genitourinary: reports: denies history Musculoskeletal: reports: chronic pain (due sickle cell crisis) Neurological: reports: denies history Endocrine/Immune: reports: Sickle Cell disease Sickle Cell Genotype:: SS Other Conditions: reports: denies history - PRIOR SURGERIES/PROCEDURES Surgical/Procedure History: reports: cholecystectomy, indwelling device (P-A-C placement) - IMMUNIZATION STATUS Childhood Immunizations: See Nurse Assessment Flu Vaccine: See Nurse Assessment - FAMILY HISTORY Family History: sickle cell disease/trait Physical Exam-General - PHYSICAL EXAM-ADULT Initial Vital Signs Reviewed: Yes - CONSTITUTIONAL General Appearance: alert, no apparent distress - EYES Eyes: PERRL/EOMI, pink conjunctivae - HEAD, EARS, NOSE, MOUTH & THROAT HENMT: moist mucous membranes, normal ENT inspection - NECK Neck: full range of motion, normal inspection - RESPIRATORY Respiratory: lungs clear, normal breath sounds, no respiratory distress, no accessory muscle use - CARDIOVASCULAR Cardiovascular: normal peripheral pulses, regular rate, rhythm - GASTROINTESTINAL (ABDOMEN) Abdominal Exam: normal bowel sounds, non tender, soft - MUSCULOSKELETAL Back Exam: normal inspection, no vertebral tenderness Extremity: normal range of motion, normal capillary refill - SKIN Integumentary: normal color, warm/dry - NEUROLOGIC Neurologic: roller II-XII nml as tested, no motor/sensory deficits - PSYCHIATRIC Psych/Mental Status: normal mood/affect, oriented x 3 Progress - PLAN OF CARE/RESULTS Progress/Plan/Lab Results: Vital Signs - 8 hr 01/08/17 12:14 01/08/17 14:27 01/08/17 15:48 Temperature 98.1 F 98.3 F 98.5 F Pulse Rate 87 93 H 82 Respiratory Rate 18 18 18 Blood Pressure 112/69 122/61 121/87 O2 Sat by Pulse Oximetry 100 98 100 Laboratory Results - last 24 hr 01/08/17 01/08/17 16:16 16:16 WBC 17.64 H RBC 3.56 L Hgb 9.3 L Hct 27.7 L MCV 77.8 L MCH 26.1 L MCHC 33.6 RDW Std Deviation 18.2 H Plt Count 224 MPV 8.1 Immature Gran % (Auto) 0.3 Neut % (Auto) 62.8 Lymph % (Auto) 29.9 [place] % (Auto) 5.2 Eos % (Auto) 1.4 Baso % (Auto) 0.4 Immature Gran # (Auto) 0.06 H Neut # (Auto) 11.07 H Lymph # (Auto) 5.28 H [place] # (Auto) 0.91 H Eos # (Auto) 0.25 Baso # (Auto) 0.07 Sodium 140 Potassium 3.6 Chloride 101 Carbon Dioxide 23 L Anion Gap 16 BUN 12 Creatinine 0.5 Estimated GFR/1.73 m2 > 60 BUN/Creatinine Ratio 24 Glucose 85 Calculated Osmolality 278 Calcium 9.2 Total Bilirubin 1.01 H AST 28 ALT 19 Alkaline Phosphatase 105 H Total Protein 8.7 H Albumin 4.5 Globulin 4.2 Albumin/Globulin Ratio 1.1 Orders Category Date Time Status BLOOD CULTURE [BLDCUL] Stat Lab 01/08/17 16:15 Results CBC WITH DIFF [HEME] Stat Lab 01/08/17 16:16 Completed CMP [COMPREHENSIVE METABOLIC PANEL] [CHEM] Stat Lab 01/08/17 16:16 Completed 0.9% Sodium Chloride Inj [Ns] 1,000 ml Med 01/08/17 17:45 Active IV 150 mls/hr 0.9% Sodium Chloride Inj [Ns] 2,000 ml Med 01/08/17 17:44 Active IV 999 mls/hr Diphenhydramine [Benadryl] Med 01/08/17 17:48 Discontinued 50 mg IV NOW ONE Hydromorphone [Dilaudid] Med 01/08/17 17:06 Discontinued 1 mg IV NOW ONE Hydromorphone [Dilaudid] Med 01/08/17 17:48 Discontinued 2 mg IV NOW ONE Promethazine [Phenergan] Med 01/08/17 17:07 Discontinued 25 mg IV NOW ONE Sodium Chloride 0.9% Med 01/08/17 17:07 Discontinued 10 ml INJ NOW ONE EKG [EKG] Stat Ther 01/08/17 12:20 Draft Result Diagrams: 01/10/17 05:50 01/09/17 05:30 - CONSULTS/PCP/HOSPITALIST Notification #1 *Consult/PCP/Hospitalist*: Dr Lindquist Time Discussed: 17:47 Consult Disposition: Admit Departure - Departure Time of Disposition Decision: 05:41 DIAGNOSIS: Sickle cell pain crisis Disposition: ADMITTED INPATIENT 09 Certified Medical Emergency: Emergent Condition: Stable - Critical Care Note This patient required my direct & personal management of CC.: No This chart was documented by the indicated scribe, (Jhon Stephenson Scribe) and accurately reflects the services I performed and decisions made by me, Sher Mitchell MD, as attested by the provider's signature.
== END 2017-01-10 11:24 | disposition home health service (06) ==
LOC: ED 11:48 → SUATTDRO 20:32 → 4N 20:32
PROVIDERS: ATTEND Internal Medicine

== ENCOUNTER 2017-01-18 05:46 | Inpatient (IN) ==
[2017-01-18] MEDS ORDERED: NS 1,000 ML IV ONE ×2 (06:01→06:24)
--- NOTE | 2017-01-18 06:13 | PROVIDER DOCUMENTATION ---
HPI-General Adult - General Chief Complaint: Sickle Cell Crisis Stated Complaint: "SICKLE CELL" Time Seen by Provider: 01/18/17 06:00 Source: patient Allergies/Adverse Reactions: Patient Allergies Allergy/AdvReac Type Severity Reaction Status Date / Time latex Allergy Mild RASH Verified 01/18/17 05:57 meperidine HCl * AdvReac Severe SHORTNESS Verified 01/18/17 05:57 [From Demerol] OF BREATH; AND HEADACHE vancomycin AdvReac Severe RASH Verified 01/18/17 05:57 morphine AdvReac Mild HEADACHE Verified 01/18/17 05:57 AND HIVES Home Medications: Home Medication List Medication Instructions Recorded Confirmed Last Taken Type Hydroxyurea 500 mg PO BID 06/17/16 01/18/17 01/17/17 History Folic Acid 1 mg PO DAILY #30 tablet 09/14/16 01/18/17 01/17/17 Rx Fentanyl 12 Microgm/Hr Patch 1 each TD Q72H #0 patch 12/10/16 01/18/17 01/16/17 Rx [[place] 12 Microgm/Hr Patch] Hydrocodone/APAP 10 mg/325 mg 1 each PO Q6H PRN PRN #20 tablet 01/10/1701/17/17 Rx [[place]-10] - History of Present Illness -Gen Adult Nature of Presenting Problems: Pt was seen here yesterday afternoon and sent home in consutltation with her process improvement engineer who is giving her the fentanyl patches. her CBC was stable in the usual range and she requested admission for iv analgesia. She Did not feel that 2 or 3 mg of iv dilaudid did much for her. She is supplementing her fentyl patch with norco10 q6h and is able to consume liquids without difficulty. Yesterday she verbalized to me only left humerus pain, now she has bilateral arm pain as well as back and front thoracic pain. She appears the same as yesterday. Dr Salmon advised sending her home yesterday, but he won't be in for several hours. Pt is scheduled to change her fentanyl patch at 6 PM today Review of Systems - Adult - REVIEW OF SYSTEMS - ADULT Constitutional: denies: chills, fever, night sweats Eyes: denies: discharge, blurred vision Ears, Nose, Mouth & Throat: denies: ear discharge, nose pain, throat swelling Cardiovascular: reports: chest pain. denies: irregular heart rate, syncope Respiratory: denies: chronic cough, cough, shortness of breath Gastrointestinal: denies: abdominal pain, constipation, diarrhea, frequent heartburn, vomiting Genitourinary: denies: dysuria, frequent UTI's Integumentary: denies: hives, mole changes, rash Neurological: denies: ataxia, paresthesia, syncope Psychiatric: reports: no symptoms reported Endocrine: denies: goiter, cold intolerance, heat intolerance Hematologic/Lymphatic: denies: low blood count, lymphedema Allergic/Immunologic: denies: allergic reactions, eczema, frequent infections, hives Past History - Adult - PAST MEDICAL HISTORY-ADULT Review of Records: reports: Nursing Assessment Review, Medications Reviewed Major Childhood Illnesses: reports: denies history, history unknown Cardiovascular: reports: denies history Respiratory: reports: asthma Gastrointestinal: reports: denies history Obstetrical/Gynecological: reports: denies history Genitourinary: reports: denies history Musculoskeletal: reports: chronic pain (due sickle cell crisis) Neurological: reports: denies history Endocrine/Immune: reports: Sickle Cell disease Sickle Cell Genotype:: SS Other Conditions: reports: denies history - PRIOR SURGERIES/PROCEDURES Surgical/Procedure History: reports: cholecystectomy, indwelling device (P-A-C placement) - IMMUNIZATION STATUS Childhood Immunizations: See Nurse Assessment Flu Vaccine: See Nurse Assessment - FAMILY HISTORY Family History: sickle cell disease/trait Physical Exam-General - PHYSICAL EXAM-ADULT Initial Vital Signs Reviewed: Yes - CONSTITUTIONAL General Appearance: appears well, alert, moderate distress - EYES Eyes: PERRL/EOMI, pink conjunctivae - NECK Neck: non-tender, full range of motion, supple, normal inspection - RESPIRATORY Respiratory: chest non-tender, lungs clear, normal breath sounds, no pleuratic chest pain, no respiratory distress, no accessory muscle use - CARDIOVASCULAR Cardiovascular: normal peripheral pulses, regular rate, rhythm, no edema, no gallop, no JVD, no murmur - GASTROINTESTINAL (ABDOMEN) Abdominal Exam: normal bowel sounds, non tender, soft, no organomegaly, no pulsatile mass - LYMPHATIC Lymphatic: no adenopathy - MUSCULOSKELETAL Back Exam: normal inspection, no CVA tenderness, no vertebral tenderness Extremity: normal range of motion, non-tender, normal gait, normal inspection - SKIN Integumentary: normal color, normal turgor, warm/dry - NEUROLOGIC Neurologic: supervisor frame assembly II-XII nml as tested, grossly normal, no motor/sensory deficits , abnormal cerebellar tests - PSYCHIATRIC Psych/Mental Status: normal mood/affect, normal thought content, normal thought process, oriented x 3 Progress - PLAN OF CARE/RESULTS Progress/Plan/Lab Results: Vital Signs - 8 hr 01/18/17 05:54 Temperature 98.6 F Pulse Rate 92 H Respiratory Rate 17 Blood Pressure 107/60 O2 Sat by Pulse Oximetry 100 Orders Category Date Time Status CBC WITH ELECTRONIC DIFF [HEME] Stat Lab 01/18/17 06:00 Uncollected CMP [COMPREHENSIVE METABOLIC PANEL] [CHEM] Stat Lab 01/18/17 06:00 Uncollected Ns 1000 ml IV Bolus X1 Med 01/18/17 06:01 Ordered 0.9% Sodium Chloride Inj [Ns] 1,000 ml IV 999 mls/hr Result Diagrams: 01/18/17 06:30 01/18/17 06:30 - REASSESSMENT Reassessment #1 Time Reassessed: 07:15 Status: unchanged (denies any relief from toradol 30 mg IV and worried that she will have to go home. Informed that her situation would be discussed with her process improvement engineer soon) - CONSULTS/PCP/HOSPITALIST Notification #1 *Consult/PCP/Hospitalist*: Michael Salmon called and states pt not in [place] crisis - pain control problem. Time Discussed: 07:51 (agrees with admission) Departure - Departure Time of Disposition Decision: 07:53 DIAGNOSIS: Chronic pain Qualifiers: Chronic pain type: other chronic pain Qualified Code(s): G89.29 - Other chronic pain Disposition: ADMITTED INPATIENT 09 Certified Medical Emergency: Urgent Condition: Stable Referrals and Follow-Ups: None,PCP [Primary Care Provider] - - Critical Care Note This patient required my direct & personal management of CC.: No
[2017-01-18] MEDS ORDERED: TORADOL IV ONE (06:30)
[2017-01-18 06:38] LABS: MANUAL DIFF NEEDED? NO
[2017-01-18 06:46] LABS: BASO% 0.2 % (0.0-0.8); EOS# 0.27 X1000 (0.0-0.7); EOS% 1.9 % (0.0-10.0); HEMATOCRIT 27.1 % (37.0-47.0); HEMOGLOBIN 8.9 g/dL (12.0-16.0); IMM GRAN# 0.04 X1000 (0.0-0.04); IMM GRAN% 0.3 % (0.0-0.5); LYMPH# 2.38 X1000 (1.2-3.4); MCH 25.4 PG (27-31); MCHC 32.8 g/dL (33-37); MCV 77.4 FL (81-99); MONO# 0.81 X1000 (0.11-0.59); MONO% 5.8 % (1.7-9.3); NEUT% 74.8 % (42.2-75.2); PLT 199 X1000 (130-400)
[2017-01-18 07:09] LABS: AGAP 13; ALBUMIN 4.1 g/dL (3.5-5.0); ALKALINE PHOSPHATASE 107 U/L (32-104); BUN 10 mg/dL (8-22); CALCIUM 8.9 mg/dL (8.8-10.2); CHLORIDE 104 mmol/L (98-107); COSMO 282; GOT 19 U/L (10-30); GPT 8 U/L (10-36); POTASSIUM 4.5 mmol/L (3.5-5.1); SODIUM 142 mmol/L (136-145); TCO2 25 mmol/L (25-35); TOTAL BILIRUBIN 0.77 mg/dL (0.20-1.00); TOTAL PROTEIN 7.1 g/dL (6.3-8.3)
--- NOTE | 2017-01-18 07:50 | Diag Imaging Result Document ---
PROCEDURE NAME: CHEST-2 VIEWS - 01/18/2017 FRONTAL AND LATERAL CHEST, TWO VIEWS: COMPARISON: 01/08/2017. FINDINGS: The lungs are well expanded. The heart is not enlarged. The vessels are not distended. No pleural effusions. No consolidation. No change in the left subclavian Port-A- Cath. No pneumothorax. IMPRESSION: No acute abnormality.
[2017-01-18 08:09] LABS: RETIC% 8.52 % (0.8-2.1); RETIC-HE 22.4 PG (28.2-36.6)
[2017-01-18] MEDS ORDERED: DURAGESIC 12 MICROGM/HR PATCH TD SCH (09:01)
--- NOTE | 2017-01-18 09:11 | HISTORY AND PHYSICAL ---
CHIEF COMPLAINT: Pain. HISTORY OF PRESENT ILLNESS: Ms. Henley is a 21-year-old, female, who is well known to our service with a history of sickle cell disease and had had multiple admissions for sickle cell crisis. She was last discharged on 01/10/2017. She returns today with pain in her arms , chest and back. She denies any fever or chills. She has no cough or expectoration. She has no abdominal pain, nausea, vomiting or diarrhea. She actually came to the ER yesterday and was given IV fluids and IV Dilaudid and discharged home. She returns today with continued pain. Her laboratory data shows actually improved anemia from yesterday. Her reticulocyte count is 8.52 and she has a mildly elevated white count. Chest x-ray does not show anything acute. Her vital signs are stable. Heart rate is 64 with a blood pressure of 119/54. She is going to be admitted now for sickle cell crisis. PAST MEDICAL HISTORY: 1. Sickle cell disease. 2. Sickle cell anemia. 3. History of port infection. 4. Chronic narcotic dependence. 5. Chronic pain. PAST SURGICAL HISTORY: She has had a cholecystectomy, Port-A-Cath placement and subsequent removal followed by replacement. SOCIAL HISTORY: She has no history of tobacco or alcohol use. There is certainly a question of prescription narcotic abuse. HOME MEDICATIONS: 1. Fentanyl 12 mcg an hour. 2. Folic acid 1 mg daily. 3. [place] 10 every 6 hours as needed for pain. 4. Hydroxyurea 500 mg p.o. b.i.d. ALLERGIES: 1. Latex. 2. Meperidine. 3. Vancomycin. 4. Morphine. REVIEW OF SYSTEMS: Fourteen-point review of systems obtained and found to be negative with the exception of the HPI. PHYSICAL EXAMINATION: VITAL SIGNS: Blood pressure is 119/54, heart rate 64, respiratory rate 16, O2 saturation 99% on room air. Temperature is 97.9 degrees. GENERAL: This is a chronically ill-appearing, 21-year-old, female, lying in hospital bed. No acute distress. NEUROLOGIC: Nonfocal. Patient is awake alert, oriented. She follows commands. HEENT: Head atraumatic and normocephalic. Her pupils are equal, round, reactive to light. Oral mucosa is moist. Trachea is midline. NECK: Supple. No JVD or carotid bruits. CHEST: Clear to auscultation bilaterally. CV: Regular rate and rhythm. S1-S2 is noted. 1/6 systolic ejection murmur noted. GI: Soft, nondistended, nontender. Bowel sounds positive. EXTREMITIES: Without edema, clubbing or cyanosis. Pulses are palpable bilaterally. DIAGNOSTIC DATA: Chest x-ray does not show anything acute. WBC 13.98, hemoglobin 8.9, hematocrit 27.1. Retic hemoglobin equivocal to 22.4, sodium 142, potassium 4.5, chloride 104, CO2 25, anion gap 13, BUN 10, creatinine 0.5, glucose is 94. Calcium is 8.9, bilirubin 0.77, AST 19, ALT 8, alkaline phosphatase 107, albumin 4.1. ASSESSMENT AND PLAN: 1. Sickle cell crisis: We will continue aggressive fluid resuscitation, will continue her fentanyl patch and [place]. We are going to consult her packaging inspector Dr. Salmon for any further management. 2. Sickle cell anemia: Has actually improved over the past few visits to the hospital. We will continue her home medications. We will monitor her hemoglobin and hematocrit transfuse as necessary. 3. Chronic pain. Will continue her home medications which include fentanyl patch and [place] 10 mg every 6 hours. 4. Deep venous thrombosis prophylaxis with Lovenox. Further recommendations to follow. Dictated by CORRINA King for Eros Redmond MD cc: CORRINA King MD [facility]
[2017-01-18] MEDS: HYDREA PO SCH ×2 (11:02→21:33)
[2017-01-18] MEDS: FOLIC ACID PO SCH (11:02)
[2017-01-18] MEDS: NORCO-10 PO PRN (11:02)
[2017-01-18] MEDS ORDERED: DILAUDID IV ONE (11:08)
[2017-01-18] MEDS ORDERED: SODIUM CHLORIDE 0.9% INJ ONE (11:15)
[2017-01-18] MEDS ORDERED: PHENERGAN IV ONE (11:15)
[2017-01-18] MEDS: NS 1,000 ML IV SCH ×2 (11:15→21:39)
[2017-01-18] MEDS: BENADRYL IV PRN ×2 (12:13→18:30)
--- NOTE | 2017-01-18 15:03 | CONSULTATION ---
DATE OF CONSULTATION: 01/18/2017 ADMITTING PHYSICIAN: Eros Redmond MD REQUESTING PHYSICIAN: Eros Redmond MD CONSULTING PHYSICIAN: Rigo Salmon MD Thank you very much for this consultation. CHIEF COMPLAINT: Pain in her arms, chest and back. REASON FOR CONSULTATION: Pain in her arms, chest and back. HISTORY OF PRESENT ILLNESS: Ms. Henley is a very pleasant 21-year-old female well known to Dr. Salmon's service with a history of sickle cell disease. Unfortunately, this young lady has suffered several episodes of crisis of late. She has been into the clinic several times this week for IV hydration, pain medication and antiemetics; however, we were unable to control or provide her needs. Her most recent hospitalization was in the middle of 12/2016. This week, the patient presented to clinic with increasing pain. She was provided with IV hydration and medications; however, the pain continued to persist and increase. This led her to visit the emergency room late yesterday or early evening with another admission to control her symptoms. PAST MEDICAL HISTORY: 1. Sickle cell disease. 2. Sickle cell anemia. 3. Avascular necrosis of the left femoral head. 4. Depression. 5. Chronic pain. 6. History of port infection. PAST SURGICAL HISTORY: 1. Cholecystectomy. 2. Port placement x2. 3. Port removal. FAMILY HISTORY: Sickle cell disease in several first degree relatives. No family history of hematologic or oncologic issues. SOCIAL HISTORY: Tobacco: None. Alcohol: None. Illicit drugs: None. MEDICATIONS: 1. [place]. 2. Zofran. 3. Phenergan. 4. Folic acid. 5. Hyd[place]. 6. Benadryl. 7. Fentanyl patch. ALLERGIES: Latex, Demerol, vancomycin and morphine. REVIEW OF SYSTEMS: General: The patient denies fevers, chills or night sweats. She does complain of fatigue. No weight loss. Ears, eyes, nose and throat: No hearing loss or ringing in the ears. Vision is intact. No problem with teeth or gums. Heart and blood vessels: She does complain of pain in her chest. No shortness of breath, irregular heartbeats, fainting or dizzy spells. Lungs: She denies chest pain with breathing. She denies cough, sinus headaches, bloody sputum. Mental: She does have a history and episodes of depression. GI: She does complain of nausea without vomiting. No complaints of diarrhea or constipation. Urinary: No complaints of difficulty or pain with urination. No episodes of blood in her urine. Skeletal: She does report again pain in her arms, chest and back relating to her crisis with sickle cell anemia. Skin: She does have some itching in the left anterior chest at the site of the dressing for her Port-A-Cath. Neurologic: She denies numbness or tingling or difficulty with her balance. No weakness. PHYSICAL EXAMINATION: Vital signs: Temperature is 99 degrees, blood pressure 113/56, heart rate 81, respirations 20, O2 saturation is 99% on room air. General: Ms. Henley is a very pleasant 21- year-old female currently lying in bed with no acute distress. HEENT: Normocephalic and atraumatic. Mucous membranes are pale and moist. PERRL. Neck: Supple without mass. Lungs: Bilateral breath sounds clear to auscultation. Cardiac: S1, S2. No murmur, gallop or rub. Abdomen: Soft, nondistended and nontender. Bowel sounds positive. Extremities: No cyanosis, clubbing or edema. Dermatologic: No rash, bruises or lesions. She does have itching in the left anterior chest at port dressing site. Neurologic: The patient is awake, alert and oriented x3. DIAGNOSTIC DATA: Hemoglobin is 8.9, hematocrit 27.1, white blood count 13.98, platelet count 199,000. Sodium is 142, potassium 4.5, chloride 104, carbon dioxide 25, BUN is 10, creatinine 0.5, glucose 94. Her reticulocyte count is 8.52. Imaging: Chest x-ray without any acute abnormality. ASSESSMENT AND PLAN: 1. Sickle cell anemia, improving. Continue current medication and treatment. 2. Sickle cell crisis with pain in both arms, chest and back. Reticulocyte is 8.52. We will continue to follow count, provide hydration, IV antibiotics. 3. We will continue to follow her reticulocyte count and CBC. We will continue to provide IV hydration, pain medications, antiemetics and Benadryl as needed. 4. I agree with DVT prophylaxis with Lovenox. Thank you again for the consultation on this pleasant young lady with unfortunate sickle cell crisis. We will continue to follow along during her hospitalization. Dictated by CORRINA Alberts for Rigo Salmno MD cc: Rigo Salmon MD
[2017-01-18] MEDS: DILAUDID IV PRN ×3 (15:40→21:33)
[2017-01-18] MEDS: PHENERGAN IV PRN ×2 (15:41→21:33)
[2017-01-18] MEDS: SODIUM CHLORIDE 0.9% INJ PRN (21:33)
[2017-01-19] MEDS: BENADRYL IV PRN ×3 (00:31→21:47)
[2017-01-19] MEDS: DILAUDID IV PRN ×6 (00:31→21:45)
[2017-01-19] MEDS: PHENERGAN IV PRN ×3 (03:41→17:41)
[2017-01-19] MEDS: NS 1,000 ML IV SCH ×3 (03:47→20:19)
[2017-01-19 05:57] LABS: HEMATOCRIT 24.3 % (37.0-47.0); HEMOGLOBIN 7.9 g/dL (12.0-16.0); MCH 25.5 PG (27-31); MCHC 32.5 g/dL (33-37); MCV 78.4 FL (81-99); MPV 8.3 FL (7.4-10.4); RBC 3.1 XMIL (4.2-5.4)
[2017-01-19 06:18] LABS: AGAP 10; BUN 11 mg/dL (8-22); CHLORIDE 105 mmol/L (98-107); COSMO 280; POTASSIUM 4.6 mmol/L (3.5-5.1); SODIUM 141 mmol/L (136-145); TCO2 26 mmol/L (25-35)
[2017-01-19 06:21] LABS: RETIC% 8.99 % (0.8-2.1); RETIC-HE 22.3 PG (28.2-36.6)
[2017-01-19] MEDS ORDERED: DILAUDID IV PRN ×3 (08:09→13:53)
[2017-01-19] MEDS: HYDREA PO SCH ×2 (10:22→20:20)
[2017-01-19] MEDS: FOLIC ACID PO SCH (10:22)
[2017-01-19] MEDS: LOVENOX SUBQ SCH (10:23)
[2017-01-19] MEDS: DURAGESIC 12 MICROGM/HR PATCH TD SCH (14:23)
--- NOTE | 2017-01-19 15:39 | PROGRESS NOTE ---
DATE: 01/19/2017 SUBJECTIVE: This patient looks better. She is not complaining at this moment about pain. She was concerned because I decreased the dose of Dilaudid from 2 mg every 3-4 hours to 1 mg q.6 hours. She looks hydrated and she has been on IV fluids since admission. Good urine output. No signs of infection. This patient states that her fentanyl patch fell off and she is asking for a new one. When I asked her about the fentanyl patch she told me that sometimes that falls off and she thew it away. The nurse looked in the room for these pads but she did not find it. OBJECTIVE: Vital Signs: Temperature 99.2 degrees, pulse 81, respiratory rate 20, blood pressure 124/60, O2 saturation 99 on room air. HEENT: Head normocephalic. No trauma. PERRLA. Neck: Supple. No JVD. No masses. Central trachea. Skin: Pale. Chest: Clear to auscultation. No wheezing. No rales. Abdomen: Soft, nontender, nondistended. No hepatosplenomegaly. Extremities: No edema. No clubbing. No cyanosis. Neurological: The patient is alert and oriented x3. No focal neurological deficits. LABORATORY: WBC 11.1, hemoglobin 7.9, hematocrit 24.3, platelets 231,000. Reticulocyte count 8.9. Sodium 141, potassium 4.6, chloride 105, bicarbonate 26, BUN 11, creatinine 0.6, glucose 88, calcium 8. ASSESSMENT AND PLAN: 1. Intractable pain. This patient is on a fentanyl patch, [place] and also she is asking for Dilaudid. I decreased the dose of this medication/Dilaudid to 1 mg q.6 hours. Even though she is not having pain at this moment she is complaining about it. 2. Sickle cell anemia. Continue to monitor. The hemoglobin and hematocrit is stable. 3. Sickle cell disease. Continue with the same management as per Heme-Onc. 4. DVT prophylaxis. Continue with Lovenox. cc: Eros Redmond MD
[2017-01-19] MEDS: NORCO-10 PO PRN (16:09)
[2017-01-20] MEDS: NS 1,000 ML IV SCH ×3 (02:44→17:49)
[2017-01-20] MEDS: PHENERGAN IV PRN ×3 (02:45→18:41)
[2017-01-20] MEDS: DILAUDID IV PRN ×6 (02:45→22:49)
[2017-01-20] MEDS: BENADRYL IV PRN ×3 (06:14→22:49)
[2017-01-20 07:02] LABS: HEMOGLOBIN 7.8 g/dL (12.0-16.0); MCH 25.2 PG (27-31); MCHC 32.5 g/dL (33-37); MCV 77.4 FL (81-99); MPV 8.2 FL (7.4-10.4); RBC 3.1 XMIL (4.2-5.4)
[2017-01-20] MEDS: HYDREA PO SCH ×2 (08:56→20:55)
[2017-01-20] MEDS: FOLIC ACID PO SCH (08:56)
[2017-01-20] MEDS: LOVENOX SUBQ SCH (08:57)
--- NOTE | 2017-01-20 16:49 | PROGRESS NOTE ---
DATE: 01/20/2017 SUBJECTIVE: This patient states that she is still having pain. I do believe that this patient has chronic pain and also she has been looking for narcotics. She is a narcotic dependent. Hematology/Oncology Department following this patient. I will follow their recommendations. OBJECTIVE: Vital Signs: Temperature 98.3 degrees, pulse 101, respiratory rate 18, blood pressure 118/65, O2 saturation 100% on room air. HEENT: Head normocephalic. No trauma. Pupils equal, round, and reactive to light. Neck: Supple. No jugular venous distention. No masses. Central trachea. Chest: Clear to auscultation. No wheezing. No rales. Skin: Pale. Abdomen: Soft, nontender, nondistended. No hepatosplenomegaly. Extremities: No edema. No clubbing. No cyanosis. Neurological: The patient is alert and oriented x3. No focal neurological deficits. LABORATORY: WBC 10.9, hemoglobin 7.8, hematocrit 24, platelets 214,000. ASSESSMENT AND PLAN: 1. Chronic pain. This patient is on a fentanyl patch. She is getting also p.o. medication with [place] and she is asking for Dilaudid. The dose of Dilaudid has been decreased yesterday, I will continue following the recommendations of oncology department. I do believe that this patient is narcotic dependent and probably she should go to a detox center or pain clinic. 2. Sickle cell anemia. Continue to monitor. 3. Sickle cell disease. Continue with the same management as per Hematology/Oncology. 4. Deep venous thrombosis prophylaxis. Continue with Lovenox. cc: Eros Redmond MD
[2017-01-20] MEDS: DURAGESIC 12 MICROGM/HR PATCH TD SCH (22:03)
[2017-01-21] MEDS: NS 1,000 ML IV SCH ×4 (02:06→23:04)
[2017-01-21] MEDS: SODIUM CHLORIDE 0.9% INJ PRN (02:54)
[2017-01-21] MEDS: DILAUDID IV PRN ×5 (02:54→23:03)
[2017-01-21] MEDS: PHENERGAN IV PRN ×3 (02:54→19:14)
[2017-01-21 06:11] LABS: MANUAL DIFF NEEDED? NO
[2017-01-21 06:42] LABS: BASO% 0.2 % (0.0-0.8); EOS# 0.25 X1000 (0.0-0.7); HEMATOCRIT 23.7 % (37.0-47.0); HEMOGLOBIN 7.9 g/dL (12.0-16.0); IMM GRAN# 0.02 X1000 (0.0-0.04); IMM GRAN% 0.2 % (0.0-0.5); LYMPH# 2.58 X1000 (1.2-3.4); LYMPH% 20.8 % (20.5-51.1); MCH 25.2 PG (27-31); MCHC 33.3 g/dL (33-37); MCV 75.7 FL (81-99); MONO# 1.02 X1000 (0.11-0.59); MONO% 8.2 % (1.7-9.3); NEUT% 68.6 % (42.2-75.2); PLT 227 X1000 (130-400); RBC 3.13 XMIL (4.2-5.4)
[2017-01-21] MEDS: BENADRYL IV PRN ×3 (07:00→23:03)
[2017-01-21] MEDS: FOLIC ACID PO SCH (09:17)
[2017-01-21] MEDS: HYDREA PO SCH ×2 (09:17→21:09)
[2017-01-21] MEDS: LOVENOX SUBQ SCH (09:26)
[2017-01-21] MEDS: NORCO-10 PO PRN ×2 (12:32→19:13)
--- NOTE | 2017-01-21 19:23 | PROGRESS NOTE ---
DATE: 01/21/2017 SUBJECTIVE: This patient states that she is still having pain. When I evaluated this patient she was crying inside the room. I do believe that this patient has chronic pain and also she has been looking for narcotics from me. She is narcotic dependent. Hematology/Oncology Department is following this patient as well. I will follow their recommendations. OBJECTIVE: Vital Signs: Temperature 98.7 degrees, pulse 85, respiratory rate 12, blood pressure 111/54, O2 saturation 98 on room air. Skin: Pale. HEENT: Head normocephalic. No trauma. PERRLA. Neck: Supple. No JVD. No masses. Central trachea. Chest: Clear to auscultation. No wheezing. No rales. Cardiovascular: RRR. No murmurs. No gallops. No rubs. Abdomen: Soft, nontender, nondistended. No hepatosplenomegaly. Extremities: No edema. No clubbing. No cyanosis. Neurological Examination: The patient is alert and oriented x3. No focal neurological deficits. LABORATORY: WBC 12.4, hemoglobin 7.9, hematocrit 23.7, platelets 227,000. ASSESSMENT: 1. Chronic pain. This patient is on fentanyl patch. Also she is getting p.o. pain medication with [place]. She is asking also for Dilaudid. I decreased the dose of Dilaudid today from every q.4 to q.8 hours. This patient should be discharged tomorrow. Lab work and vital signs have been stable. 2. Sickle-cell anemia. Continue to monitor. 3. Sickle cell disease. Continue with the same management as per Hematology/Oncology. 4. Deep vein thrombosis prophylaxis. Continue with Lovenox. PLAN: Overall this patient is doing better. She is still complaining about pain but this is chronic. I do believe that this patient has a problem with narcotics. She should be discharged tomorrow. cc: Eros Redmond MD
[2017-01-21] MEDS: DURAGESIC 12 MICROGM/HR PATCH TD SCH (21:09)
[2017-01-22 06:03] LABS: MANUAL DIFF NEEDED? NO
[2017-01-22 06:20] LABS: BASO% 0.2 % (0.0-0.8); EOS% 2.9 % (0.0-10.0); HEMATOCRIT 23.2 % (37.0-47.0); HEMOGLOBIN 7.7 g/dL (12.0-16.0); IMM GRAN# 0.02 X1000 (0.0-0.04); IMM GRAN% 0.2 % (0.0-0.5); LYMPH# 3.15 X1000 (1.2-3.4); LYMPH% 30.1 % (20.5-51.1); MCH 24.9 PG (27-31); MCHC 33.2 g/dL (33-37); MCV 75.1 FL (81-99); MONO# 0.71 X1000 (0.11-0.59); MONO% 6.8 % (1.7-9.3); MPV 8.4 FL (7.4-10.4); NEUT% 59.8 % (42.2-75.2); PLT 235 X1000 (130-400); RBC 3.09 XMIL (4.2-5.4)
[2017-01-22 06:37] LABS: AGAP 9; BUN 10 mg/dL (8-22); CALCIUM 8.7 mg/dL (8.8-10.2); CHLORIDE 104 mmol/L (98-107); COSMO 277; POTASSIUM 4.1 mmol/L (3.5-5.1); SODIUM 139 mmol/L (136-145); TCO2 26 mmol/L (25-35)
[2017-01-22] MEDS: BENADRYL IV PRN ×2 (07:24→14:45)
[2017-01-22] MEDS: DILAUDID IV PRN (07:25)
[2017-01-22] MEDS ORDERED: DILAUDID IV PRN (08:02)
[2017-01-22] MEDS: LOVENOX SUBQ SCH (09:56)
[2017-01-22] MEDS: FOLIC ACID PO SCH (11:29)
[2017-01-22] MEDS: HYDREA PO SCH ×2 (11:30→20:19)
[2017-01-22] MEDS: NORCO-10 PO PRN ×2 (11:30→20:15)
[2017-01-22] MEDS ORDERED: TYLENOL PO ONE (13:39)
[2017-01-22] MEDS ORDERED: NS 500 ML ONE (13:54)
[2017-01-22] MEDS: PHENERGAN IV PRN (14:10)
[2017-01-22 16:56] VITALS: BP 125/76
[2017-01-22] MEDS: NS 1,000 ML IV SCH ×2 (17:12→18:50)
[2017-01-22] MEDS ORDERED: HEPARIN ONE (17:25)
[2017-01-22] MEDS ORDERED: DURAGESIC 12 MICROGM/HR PATCH TD SCH (18:30)
--- NOTE | 2017-01-22 19:27 | DISCHARGE SUMMARY ---
ADMISSION DATE: 01/18/2017 DISCHARGE DATE: 01/22/2017 DATE OF ADMISSION: 01/18/2017. DATE OF DISCHARGE: 01/22/2017. CONSULTATIONS: Dr. Salmon. PERTINENT PROCEDURES: Chest x-ray: Showed no acute abnormality. DISCHARGE DIAGNOSES: 1. Chronic pain. The patient is on fentanyl patch. She is also receiving p.o. pain medication with [place]. Her Dilaudid dosed by Dr. Salmon. Lab work and vital signs have remained stable. 2. Sickle cell anemia. Stable. Followed by Dr. Salmon. 3. Sickle cell disease. Management per Hematology-Oncology. 4. Chronic narcotic dependence/abuse. HOSPITAL COURSE: Ms. Henley is a 21-year-old, female, well known to our service for a history of sickle cell. Multiple admissions for sickle cell crisis, was last discharged on 01/10/2017. She returned to the emergency department with pain in her arms, chest, and back with no fever or chills. No cough. No abdominal pain. No nausea, vomiting, or diarrhea. She had came to the emergency department the day prior. Was given IV fluids, IV Dilaudid, and discharged home. She returned to the emergency department complaining of pain again. Laboratory data showed actual improvement in anemia from prior day. Her WBC count was 8.52, and she has had a mildly elevated white count. A Chest x-ray did not show anything acute. Vital signs were stable at the time of her admission. The patient was admitted for sickle cell crisis with a consult for Dr. Salmon for further pain management. She was continued on her home fentanyl patch, as well as p.o. [place]. The patient has also been to Dr. Salmon 's clinic several times on the week of her admission for IV hydration as well as IV pain medication and anti emetics. The patient's IV Dilaudid was weaned from every 4 hours to every 8 hours. She has remained stable. Clinically, the patient has improved. She still does complain of pain. But again, this is chronic. Again, she was educated on the development of tolerance and dependence as I explained to her the long-term affects of pain medication, includes nausea, vomiting, abdominal distention, bloating, constipation, and even more damaging liver damage, brain damage, due to hypoxia resulting from respiratory depression. DISCHARGE VITAL SIGNS: Temperature is 98.2 degrees, heart rate 78, respirations 16, blood pressure 120/51, O2 is 100% on room air. DISCHARGE DIET: Regular. DISCHARGE MEDICATIONS: 1. Fentanyl patch 1 each TD every 72 hours. 2. Folic acid 1 mg p.o. daily. 3. [place] 10 1 each p.o. every 6 hours p.r.n. 4. Hydroxyurea V 100 mg p.o. b.i.d. DISPOSITION: Ms. Henley is being discharged home. She will follow up with a primary care physician, as well as Dr. Salmon. SPECIAL INSTRUCTIONS: 1. Again, she has been educated on abusing pain medication and the side effects. 2. The patient can return to the emergency department for any worsening of symptoms. TIME SPENT: 32 minutes. Addendum : Patient is being discharge in stable condition. It is important to remark that this patient has opiate dependency. While she was here she was receiving 2 to 3 mg of Dilaudid IV q2 to 3 hours and still on pain according to her. She usually try to get pain meds from her photoengraving photographer, from ER here and from ER in [place]. She takes pain medications every single day. I have talked to her that she needs to find out either a pain doctor or detox clinic to treat her addiction. Patient acknowledged understanding. Dictated by CORRINA Shetty for Tray Baker MD cc: Tray Baker MD [facility]
== END 2017-01-22 21:21 | disposition home or self-care (01) ==
LOC: ED 05:46 → 4N 08:43 → SUATTDRO 08:43
PROVIDERS: ATTEND Internal Medicine

== ENCOUNTER 2017-02-13 11:14 | Inpatient (IN) ==
[2017-02-13] MEDS ORDERED: NS 3,000 ML IV ONE (11:31)
[2017-02-13 11:37] LABS: URINE CULTURE PL NEEDED? NO
[2017-02-13 11:51] LABS: UR AMPHETAMINES QUAL NONE DETECTED (NONE DETECT); UR BARBITUATES QUAL NONE DETECTED (NONE DETECT); UR BENZODIAZEPIN QUAL NONE DETECTED (NONE DETECT); UR CANNABINOIDS QUAL NONE DETECTED (NONE DETECT); UR COCAINE QUAL NONE DETECTED (NONE DETECT); UR MDMA QUAL NONE DETECTED (NONE DETECT); UR METHADONE QUAL NONE DETECTED (NONE DETECT); UR METHAMPHETAMINE QUAL NONE DETECTED (NONE DETECT); UR OPIATES QUAL PRESUMPTIVE POSITIVE (NONE DETECT); UR OXYCODONE QUAL NONE DETECTED (NONE DETECT); UR PCP QUAL NONE DETECTED (NONE DETECT); UR TCA QUAL NONE DETECTED (NONE DETECT)
[2017-02-13 11:58] LABS: BILIRUBIN URINE NEGATIVE (NEGATIVE); BLOOD URINE NEGATIVE (NEGATIVE); CLARITY CLEAR (CLEAR); COLOR YELLOW; GLUCOSE URINE NEGATIVE (NEGATIVE); LEUKOCYTES URINE NEGATIVE (NEGATIVE); NITRITE URINE NEGATIVE (NEGATIVE); PROTEIN URINE NEGATIVE (NEGATIVE); UROBILINOGEN URINE NORMAL
[2017-02-13 12:11] LABS: URINE EPITHELIAL CELLS <10 /HPF (<10); URINE SOURCE CLEAN CATCH; URINE WBC <10 /HPF (<10)
[2017-02-13 12:18] LABS: BASO% 0.3 % (0.0-0.8); HEMATOCRIT 19.6 % (37.0-47.0); HEMOGLOBIN 6.2 g/dL (12.0-16.0); MANUAL DIFF NEEDED? YES; MCH 25.8 PG (27-31); MCHC 31.6 g/dL (33-37); MCV 81.7 FL (81-99); PLT 179 X1000 (130-400); RETIC% 23.68 % (0.8-2.1); RETIC-HE 22.5 PG (28.2-36.6)
[2017-02-13] MEDS ORDERED: DILAUDID IV ONE ×2 (12:26→14:56)
[2017-02-13 12:43] LABS: LYMPHS 40 % (21-51)
--- NOTE | 2017-02-13 13:02 | PROVIDER DOCUMENTATION ---
This chart was entered by Nicolette Scanlon Scribe, acting as scribe for Sher Mitchell MD. HPI-General Adult - General Chief Complaint: Sickle Cell Crisis Stated Complaint: BACK PX Time Seen by Provider: 02/13/17 11:28 Source: patient Allergies/Adverse Reactions: Patient Allergies Allergy/AdvReac Type Severity Reaction Status Date / Time latex Allergy Mild RASH Verified 01/18/17 05:57 meperidine HCl * AdvReac Severe SHORTNESS Verified 01/18/17 05:57 [From Demerol] OF BREATH; AND HEADACHE vancomycin AdvReac Severe RASH Verified 01/18/17 05:57 morphine AdvReac Mild HEADACHE Verified 01/18/17 05:57 AND HIVES Home Medications: Home Medication List Medication Instructions Recorded Confirmed Last Taken Type Hydroxyurea 500 mg PO BID 06/17/16 02/13/17 02/13/17 07:00 History Folic Acid 1 mg PO DAILY #30 tablet 09/14/16 02/13/17 02/13/17 07:00 Rx Fentanyl 12 Microgm/Hr Patch 1 each TD Q72H #0 patch 12/10/16 02/13/17 02/11/17 07:00 Rx [Duragesic 12 Microgm/Hr Patch] Hydrocodone/APAP 10 mg/325 mg 1 each PO Q6H PRN PRN #18 tablet 01/22/1702/13/17 07:00 Rx [Beulah-10] - History of Present Illness -Gen Adult Nature of Presenting Problems: PT IS A 21YOF PRESENTING TO THE ED C/O BACK AND CHEST PAIN. PT IS VERY WELL KNOWN TO ALL LOCAL ER'S AND IS A SICKLE CELL PT. PT STATES THIS IS HER NORMAL PAIN. NO OTHER COMPLAINTS NOTED AT THIS TIME Location of Pain/Injury: reports: chest, back Pain Radiation: reports: no radiation Quality of Pain: reports: aching Severity: reports: mild, moderate Onset/Duration: reports: 4-6 hours ago Timing: reports: still present Context/Activities at Onset: reports: light activity Modifying Factors: improves with: analgesics (NO RELIEF FROM NORCO 10/325 MG) Associated Symptoms: reports: back/neck pain, chest pain, fatigue, malaise. denies: constipation, diaphoresis, diarrhea, loss of appetite, sinus congestion/ drainage, shortness of breath, sensory/motor loss Similar Symptoms Previously?: Yes Recently seen or treated by another doctor?: Yes - Sickle Cell Pain Related Context Sickle Cell Pain Location: reports: chest, abdomen Review of Systems - Adult - REVIEW OF SYSTEMS - ADULT Constitutional: reports: no symptoms reported Eyes: reports: no symptoms reported Ears, Nose, Mouth & Throat: reports: no symptoms reported Cardiovascular: reports: see HPI, chest pain. denies: heart murmur, irregular heart rate, palpitations Respiratory: reports: no symptoms reported Gastrointestinal: reports: see HPI, abdominal pain. denies: nausea, vomiting Genitourinary: reports: no symptoms reported Musculoskeletal: reports: no symptoms reported Integumentary: reports: no symptoms reported Neurological: reports: no symptoms reported Psychiatric: reports: see HPI, alcohol/drug dependence, emotional problems. denies: depression, suicidal thoughts Endocrine: reports: no symptoms reported Hematologic/Lymphatic: reports: see HPI, transfusions. denies: easy bruising, lymphedema Allergic/Immunologic: reports: no symptoms reported All Other Systems: Reviewed and Negative Past History - Adult - PAST MEDICAL HISTORY-ADULT Review of Records: reports: Old Records Reviewed, Nursing Assessment Review, Medications Reviewed, Social history reviewed & non-contributory. Major Childhood Illnesses: reports: denies history, history unknown Cardiovascular: reports: denies history Respiratory: reports: asthma Gastrointestinal: reports: denies history Obstetrical/Gynecological: reports: denies history Genitourinary: reports: denies history Musculoskeletal: reports: chronic pain (due sickle cell crisis) Neurological: reports: denies history Endocrine/Immune: reports: Sickle Cell disease Sickle Cell Genotype:: SS Other Conditions: reports: denies history - PRIOR SURGERIES/PROCEDURES Surgical/Procedure History: reports: cholecystectomy, indwelling device (P-A-C placement) - IMMUNIZATION STATUS Childhood Immunizations: See Nurse Assessment Flu Vaccine: See Nurse Assessment - FAMILY HISTORY Family History: sickle cell disease/trait - SOCIAL HISTORY Smoking: cigarettes, greater than 1 pack/day Provider spent 3-5 mins advising pt. on dangers of tobacco.: Discussed manners to quit use, and f/u contacts for add'l counseling. Substance Use: none/never, none presently/history of abuse, alcohol, opiates Alcohol Use Frequency: occasionally Number of drinks per typical drinking period:: 3-4 drinks Living Situation: family Physical Exam-General - PHYSICAL EXAM-ADULT Initial Vital Signs Reviewed: Yes - CONSTITUTIONAL General Appearance: appears well, alert, mild distress. negative: no apparent distress - EYES Eyes: PERRL/EOMI, pink conjunctivae - HEAD, EARS, NOSE, MOUTH & THROAT HENMT: normocephalic/atraumatic, moist mucous membranes, normal ENT inspection, TMs normal, pharynx normal - NECK Neck: non-tender, full range of motion, supple, normal inspection - RESPIRATORY Respiratory: lungs clear, normal breath sounds, no pleuratic chest pain, no respiratory distress, no accessory muscle use. negative: chest non-tender - CARDIOVASCULAR Cardiovascular: normal peripheral pulses, regular rate, rhythm, no edema, no gallop, no JVD, no murmur - GASTROINTESTINAL (ABDOMEN) Abdominal Exam: normal bowel sounds, non tender, soft, no organomegaly, no pulsatile mass - LYMPHATIC Lymphatic: no adenopathy - MUSCULOSKELETAL Back Exam: normal inspection, no CVA tenderness, no vertebral tenderness Extremity: normal range of motion, non-tender, normal gait, normal inspection, no pedal edema, no calf tenderness, normal capillary refill, pelvis stable - SKIN Integumentary: normal color, normal turgor, warm/dry - NEUROLOGIC Neurologic: program director cable television II-XII nml as tested, grossly normal, no motor/sensory deficits - PSYCHIATRIC Psych/Mental Status: normal mood/affect, normal thought content, normal thought process, oriented x 3 Progress - PLAN OF CARE/RESULTS Progress/Plan/Lab Results: Vital Signs - 8 hr 02/13/17 11:17 Temperature 99.1 F Pulse Rate 96 H Respiratory Rate 18 Blood Pressure 131/77 O2 Sat by Pulse Oximetry 100 Orders Category Date Time Status CBC WITH DIFF [HEME] Stat Lab 02/13/17 11:22 Ordered TEST-URINE [PREG] Stat Lab 02/13/17 11:20 Received RETIC COUNT [HEME] Stat Lab 02/13/17 11:[address] W/POSS RFLX CULT [URINALYSIS] Stat Lab 02/13/17 11:20 Received URINE DRUG SCREEN PL Stat Lab 02/13/17 11:20 Received 0.9% Sodium Chloride Inj [Ns] 3,000 ml Med 02/13/17 11:31 Active IV 999 mls/hr Laboratory Tests 02/13/17 02/13/17 02/13/17 11:20 11:20 11:20 WBC RBC Hgb Hct MCV MCH MCHC RDW Std Deviation Plt Count MPV Neut % (Auto) Lymph % (Auto) [place] % (Auto) Eos % (Auto) Baso % (Auto) Neut # (Auto) Lymph # (Auto) [place] # (Auto) Eos # (Auto) Baso # (Auto) Segmented Neutrophils Lymphocytes Poikilocytosis Anisocytosis Microcytosis Percent Retic Retic Hgb Equivalent Urine Source CLEAN CATCH Urine Color YELLOW Urine Clarity CLEAR Urine pH 7.0 Ur Specific [place] 1.000 Urine Protein NEGATIVE Urine Ketones NEGATIVE Urine Blood NEGATIVE Urine Nitrite NEGATIVE Urine Bilirubin NEGATIVE Urine Urobilinogen NORMAL Urine Microscopic RBC Not Reportable Urine WBC NEGATIVE Urine Microscopic WBC <10 Ur Epithelial Cells <10 Urine Glucose NEGATIVE Urine Test NEGATIVE Urine Opiates Screen PRESUMPTIVE POSITIVE A Ur Oxycodone Screen NONE DETECTED Urine Methadone Screen NONE DETECTED Ur Barbituates Screen NONE DETECTED Ur Tricyclics Screen NONE DETECTED Ur Phencyclidine Scrn NONE DETECTED Ur Amphetamines Screen NONE DETECTED U Methamphetamines Scrn NONE DETECTED Urine MDMA Screen NONE DETECTED U Benzodiazepines Scrn NONE DETECTED Urine Cocaine Screen NONE DETECTED U Cannabinoids Screen NONE DETECTED 02/13/17 12:00 WBC 15.94 H RBC 2.40 L Hgb 6.2 L Hct 19.6 L MCV 81.7 MCH 25.8 L MCHC 31.6 L RDW Std Deviation 19.0 H Plt Count 179 MPV 8.0 Neut % (Auto) Not Reportable Lymph % (Auto) Not Reportable [place] % (Auto) Not Reportable Eos % (Auto) Not Reportable Baso % (Auto) 0.3 Neut # (Auto) Not Reportable Lymph # (Auto) Not Reportable [place] # (Auto) Not Reportable Eos # (Auto) Not Reportable Baso # (Auto) 0.04 Segmented Neutrophils 60 Lymphocytes 40 Poikilocytosis 2+ Anisocytosis 2+ Microcytosis 1+ Percent Retic 23.68 H Retic Hgb Equivalent 22.5 L Urine Source Urine Color Urine Clarity Urine pH Ur Specific [place] Urine Protein Urine Ketones Urine Blood Urine Nitrite Urine Bilirubin Urine Urobilinogen Urine Microscopic RBC Urine WBC Urine Microscopic WBC Ur Epithelial Cells Urine Glucose Urine Test Urine Opiates Screen Ur Oxycodone Screen Urine Methadone Screen Ur Barbituates Screen Ur Tricyclics Screen Ur Phencyclidine Scrn Ur Amphetamines Screen U Methamphetamines Scrn Urine MDMA Screen U Benzodiazepines Scrn Urine Cocaine Screen U Cannabinoids Screen Orders Category Date Time Status CBC WITH DIFF [HEME] Stat Lab 02/13/17 12:00 Completed TEST-URINE [PREG] Stat Lab 02/13/17 11:20 Completed RETIC COUNT [HEME] Stat Lab 02/13/17 12:[address] W/POSS RFLX CULT [URINALYSIS] Stat Lab 02/13/17 11:20 Com[address]INE DRUG SCREEN [address] Stat Lab 02/13/17 11:20 Completed 0.9% Sodium Chloride Inj [Ns] 3,000 ml Med 02/13/17 11:31 Active IV 999 mls/hr Hydromorphone [Dilaudid] Med 02/13/17 12:26 Discontinued 0.5 mg IV NOW ONE Vital Signs - 24 hr 02/13/17 11:17 Temperature 99.1 F Pulse Rate 96 H Respiratory Rate 18 Blood Pressure 131/77 O2 Sat by Pulse Oximetry 100 Result Diagrams: 02/13/17 12:00 - REASSESSMENT Reassessment #1 Status: improving (pt states taht the 0.5 mg dilaudid brought the pain down from an 8-7/10) Departure - Departure Date of Disposition Decision: 02/13/17 Time of Disposition Decision: 13:18 DIAGNOSIS: Sickle cell pain crisis Disposition: ADMITTED INPATIENT 09 Certified Medical Emergency: Emergent Condition: Stable - Critical Care Note This patient required my direct & personal management of CC.: No This chart was documented by the indicated scribe, (Nicolette Scanlon Scribe) and accurately reflects the services I performed and decisions made by me, Sher Mitchell MD, as attested by the provider's signature.
[2017-02-13] MEDS ORDERED: NS 1,000 ML ONE ×2 (13:04→15:57)
[2017-02-13] MEDS ORDERED: NS 1,000 ML IV ONE (15:48)
[2017-02-13] MEDS ORDERED: ZOFRAN IV PRN (15:48)
[2017-02-13] MEDS ORDERED: TYLENOL PO PRN (15:48)
--- NOTE | 2017-02-13 16:37 | HISTORY AND PHYSICAL ---
CHIEF COMPLAINT: Back pain and chest pain. HISTORY OF PRESENT ILLNESS: This is a 21-year-old female, well known to our service in the ER from her frequent admissions for sickle cell crisis, who comes in again with sickle cell crisis pains for the last 24 hours. I think she was in the ER yesterday. She has her normal pain, however her blood count was low, hemoglobin of 6 and a hematocrit was low. Reticulocyte count was 22% which is a lot higher than her usual levels of abnormality on her laboratory data. No focal complaints besides her typical sickle pain. Patient admitted for sickle cell crisis. PAST MEDICAL HISTORY: Sickle cell disease. PAST SURGICAL HISTORY: She has had a cholecystectomy. She has avascular necrosis, which I think led to a hip surgery. She has had numerous port infections, which have required port removal. SOCIAL HISTORY: Denies tobacco or alcohol. She is on fentanyl 12 mcg; it says here an hour, but I would think that is probably every 72 hours, hopefully not an hour, folic acid 1 daily, Belcher p.r.n., hydroxyurea 500 b.i.d. ALLERGIES: Latex, meperidine, vancomycin and morphine. REVIEW OF SYSTEMS: Ten point review of systems reviewed and are all negative. PHYSICAL EXAMINATION: VITAL SIGNS: Blood pressure 100/68, heart rate 72, respiratory rate 16, temperature 99.1 degrees, 98% on room air. GENERAL: A well-developed female in no acute distress. HEAD: Exam was normocephalic, atraumatic. EYE: Exam revealed pupils equal, round, reactive to light. Extraocular movements were intact. EAR/NOSE/THROAT: Exam revealed moist mucous membranes. NECK: Exam was supple. CARDIOVASCULAR EXAM: Regular rate and rhythm. No murmurs, gallops, or rubs. PULMONARY EXAM: Bilateral breath sounds. Clear to auscultation. GI: Soft, nontender, nondistended. Bowel sounds are positive. LABORATORY DATA: Hemoglobin and hematocrit of 6 and 19, white count of 15, platelets 179. Chemistries look okay. PROBLEM LIST: Sickle cell crisis. We will continue treatment and follow. Continue pain control, hydration and follow closely. I will check blood cultures just because she has had issues with bloodstream infection previously. We will continue to monitor. cc: Bharat Hernadez MD
[2017-02-13] MEDS: BENADRYL IV PRN ×2 (16:39→21:35)
[2017-02-13] MEDS: DILAUDID IV PRN ×2 (18:40→21:34)
[2017-02-13] MEDS: HYDREA PO SCH (21:34)
[2017-02-14] MEDS: DILAUDID IV PRN ×8 (00:56→23:47)
[2017-02-14] MEDS: BENADRYL IV PRN ×7 (00:56→23:46)
[2017-02-14 07:08] LABS: HEMATOCRIT 19.6 % (37.0-47.0); HEMOGLOBIN 6.1 g/dL (12.0-16.0); MCH 25.2 PG (27-31); MCHC 31.1 g/dL (33-37); MPV 8.1 FL (7.4-10.4); RBC 2.42 XMIL (4.2-5.4); RETIC% 23.57 % (0.8-2.1); RETIC-HE 21.8 PG (28.2-36.6)
[2017-02-14] MEDS: FOLIC ACID PO SCH (09:17)
[2017-02-14] MEDS: HYDREA PO SCH ×2 (09:17→20:20)
[2017-02-14] MEDS: DURAGESIC 12 MICROGM/HR PATCH TD SCH (09:17)
--- NOTE | 2017-02-14 10:15 | Diag Imaging Result Doc PS360 ---
EXAM: CHEST-2 VIEWS INDICATION: scd crisis TECHNIQUE: 2 views COMPARISON: 01/18/2017 FINDINGS: There is a left chest port is in stable position. The lungs are grossly clear. There is no discrete pleural fluid collection. The cardiac silhouette is borderline prominent. Central vasculature is unremarkable. IMPRESSION: Borderline prominent cardiac silhouette. No definite acute pathology. Electronically signed by Gopi Polo 02/14/2017 10:13 AM
[2017-02-14] MEDS: NS 1,000 ML IV SCH ×2 (10:25→20:40)
--- NOTE | 2017-02-14 11:18 | PROGRESS NOTE ---
DATE: 02/14/2017 SUBJECTIVE: The patient states that she is feeling a little better. Her pain is controlled with Anza and Dilaudid. She continues with nausea. OBJECTIVE: Vital Signs: Blood pressure is 117/64, with a heart rate of 85, respirations 18, temperature 98.7 degrees oral, with room air saturations of 99-100%. Cardiovascular: Regular rate and rhythm. S1 and S2 are appreciated. Pulmonary: Breath sounds are clear. No increased work of breathing noted. Gastrointestinal: Abdomen is soft, nontender, and nondistended with bowel sounds in all 4 quadrants. Back: No CVAT. No spine tenderness. Extremities: No clubbing, cyanosis, or edema. Calves are nontender. Pulses palpable x4. Diagnostic Data: Chest x-ray revealed borderline prominent cardiac silhouette no definite acute pathology. The lungs are grossly clear. Labs: WBC is 12.68, with a hemoglobin of 6.1, hematocrit 19.6, and platelets of 159,000. Reticulocyte percent is 23.57, reticulocyte count is 21.8. ASSESSMENT AND PLAN: Sickle cell crisis. We will continue with intravenous hydration as well as pain and nausea control. Blood cultures are pending. Dr. Salmon will be consulted. Further treatments pending hospital course. Dictated by CORRINA Molina for Bharat Hernadez MD cc: CORRINA Molina MD pt examined, agree with above, will follow closely [facility]
[2017-02-14] MEDS: PHENERGAN IV PRN ×2 (13:34→20:19)
[2017-02-14] MEDS: SODIUM CHLORIDE 0.9% INJ PRN (13:34)
[2017-02-15] MEDS: DILAUDID IV PRN ×7 (03:12→22:56)
[2017-02-15] MEDS: PHENERGAN IV PRN ×2 (03:12→15:29)
[2017-02-15] MEDS: BENADRYL IV PRN ×4 (03:12→19:56)
[2017-02-15 06:46] LABS: RETIC% 21.99 % (0.8-2.1); RETIC-HE 21.6 PG (28.2-36.6)
[2017-02-15] MEDS: NS 1,000 ML IV SCH ×2 (07:04→19:57)
[2017-02-15] MEDS: FOLIC ACID PO SCH (09:13)
[2017-02-15] MEDS: HYDREA PO SCH ×2 (09:13→20:00)
[2017-02-15 09:28] LABS: BASO% 0.2 % (0.0-0.8); EOS# 0.27 X1000 (0.0-0.7); HEMATOCRIT 20.1 % (37.0-47.0); HEMOGLOBIN 6.6 g/dL (12.0-16.0); IMM GRAN# 0.03 X1000 (0.0-0.04); IMM GRAN% 0.2 % (0.0-0.5); LYMPH# 4.42 X1000 (1.2-3.4); LYMPH% 33.5 % (20.5-51.1); MANUAL DIFF NEEDED? YES; MCH 26.2 PG (27-31); MCHC 32.8 g/dL (33-37); MCV 79.8 FL (81-99); MONO# 0.84 X1000 (0.11-0.59); MONO% 6.4 % (1.7-9.3); MPV 8.4 FL (7.4-10.4); NEUT% 57.7 % (42.2-75.2); PLT 149 X1000 (130-400); RBC 2.52 XMIL (4.2-5.4)
[2017-02-15 09:51] LABS: LYMPHS 26 % (21-51); MONO 6 % (1-9); NRBC 3 % (0-0)
--- NOTE | 2017-02-15 10:28 | PROGRESS NOTE ---
DATE: 02/15/2017 SUBJECTIVE: This patient states she feels a little better today. She denies any nausea or vomiting, chest pain, and states her pain is better relieved. OBJECTIVE: Vital Signs: Blood pressure is 151/72 with a heart rate of 63, respirations 16, temperature 98.3 degrees oral with room air saturation of 99% to 100%. Cardiovascular: Regular rate and rhythm. S1, S2 appreciated. Pulmonary: Breath sounds are clear with no increased work of breathing noted. Gastrointestinal: Abdomen is soft, nontender, nondistended with bowel sounds in all 4 quadrants. Extremities: No clubbing, cyanosis, or edema. Calves are nontender. Pulses are palpable x4. DIAGNOSTICS: WBC is 13.19 with hemoglobin of 6.6, hematocrit 20.1 and platelets of 149. Reticulocyte count is 21.6. PROBLEM LIST: 1. Sickle cell crisis. 2. Anemia. PLAN: Will continue with her current regimen and follow labs daily. Dr. Salmon has been consulted; we are awaiting his recommendations. Dictated by CORRINA Molina for Bharat Hernadez MD cc: CORRINA Molina MD pt examined, agree with above , hh somewhat improved, no growth from cultures thus far [facility]
[2017-02-15] MEDS: SODIUM CHLORIDE 0.9% INJ PRN (15:29)
[2017-02-16] MEDS: DILAUDID IV PRN ×7 (02:03→21:38)
[2017-02-16] MEDS: BENADRYL IV PRN ×4 (02:03→21:37)
[2017-02-16] MEDS: PHENERGAN IV PRN ×2 (05:23→18:10)
[2017-02-16] MEDS: NS 1,000 ML IV SCH ×3 (05:23→21:37)
[2017-02-16 06:00] LABS: HEMATOCRIT 20.9 % (37.0-47.0); HEMOGLOBIN 6.7 g/dL (12.0-16.0); MCH 25.3 PG (27-31); MCHC 32.1 g/dL (33-37); MCV 78.9 FL (81-99); RBC 2.65 XMIL (4.2-5.4)
[2017-02-16 06:15] LABS: AGAP 8; BUN 6 mg/dL (8-22); CALCIUM 8.2 mg/dL (8.8-10.2); CHLORIDE 102 mmol/L (98-107); COSMO 269; POTASSIUM 3.7 mmol/L (3.5-5.1); SODIUM 136 mmol/L (136-145); TCO2 26 mmol/L (25-35)
[2017-02-16] MEDS: FOLIC ACID PO SCH (08:28)
[2017-02-16] MEDS: HYDREA PO SCH ×2 (08:28→21:38)
--- NOTE | 2017-02-16 11:11 | PROGRESS NOTE ---
DATE: 02/16/2017 SUBJECTIVE: The patient states that she is having trouble sleeping. Her pain is slightly better. She denied any nausea or vomiting, or any specific pain. She just has generalized pain. OBJECTIVE: Vital Signs: Blood pressure is 113/66 with a heart rate of 61. Respirations are 18. Temperature is 97.6 degrees oral with room air saturations 96% to 100%. Cardiovascular: Regular rate and rhythm. S1 and S2 appreciated. Pulmonary: Breath sounds are clear with no increased work of breathing noted. Gastrointestinal: Abdomen is soft, nontender, nondistended, with bowel sounds in all 4 quadrants. Extremities: No clubbing, cyanosis, or edema. Calves are nontender. Pulses are palpable x4. Neurologic: She is alert and oriented x3. Cranial nerves 2-12 grossly intact. DIAGNOSTICS: WBC is 11.9 with a hemoglobin of 6.7, hematocrit 28.9, and platelets of 138,000. Differential is pending. Sodium is 136, potassium 3.7, BUN 6, creatinine 0.4. PROBLEM LIST: 1. Sickle cell crisis. 2. Anemia. We will continue with her current regimen, follow her labs. Blood cultures reveal no growth. Her hemoglobin and hematocrit have been stable. We will continue to monitor. Dictated by CORRINA Molina for Bharat Hernadez MD cc: CORRINA Molina MD pt examined, agree with above [facility]
[2017-02-16] MEDS: SODIUM CHLORIDE 0.9% INJ PRN (18:11)
[2017-02-17] MEDS: BENADRYL IV PRN ×5 (00:40→22:21)
[2017-02-17] MEDS: PHENERGAN IV PRN ×3 (00:40→19:36)
[2017-02-17] MEDS: DILAUDID IV PRN ×8 (00:40→22:21)
[2017-02-17] MEDS: NS 1,000 ML IV SCH ×3 (00:48→20:43)
[2017-02-17 05:59] LABS: BASO% 0.3 % (0.0-0.8); EOS# 0.21 X1000 (0.0-0.7); EOS% 2.1 % (0.0-10.0); HEMATOCRIT 20.8 % (37.0-47.0); HEMOGLOBIN 6.5 g/dL (12.0-16.0); IMM GRAN# 0.02 X1000 (0.0-0.04); IMM GRAN% 0.2 % (0.0-0.5); LYMPH# 3.09 X1000 (1.2-3.4); LYMPH% 30.2 % (20.5-51.1); MANUAL DIFF NEEDED? YES; MCH 24.7 PG (27-31); MCHC 31.3 g/dL (33-37); MCV 79.1 FL (81-99); MONO# 0.56 X1000 (0.11-0.59); MONO% 5.5 % (1.7-9.3); MPV 7.9 FL (7.4-10.4); NEUT% 61.7 % (42.2-75.2); PLT 146 X1000 (130-400); RBC 2.63 XMIL (4.2-5.4)
[2017-02-17 06:36] LABS: EOS 3 % (1-10); LYMPHS 25 % (21-51); MONO 2 % (1-9)
[2017-02-17 08:39] LABS: RETIC% 18.12 % (0.8-2.1); RETIC-HE 21.3 PG (28.2-36.6)
--- NOTE | 2017-02-17 08:39 | PROGRESS NOTE ---
DATE: 02/17/2017 SUBJECTIVE: The patient states she is still having trouble sleeping. She states her pain is about the same with no specific area of pain, just generalized body pain. She denies any nausea, vomiting, fevers, or chills. OBJECTIVE: Vital Signs: Blood pressure is 105/64, with a heart rate of 77, respirations 18, temperature 98.3 degrees, oxygen saturation is 99% on room air. Cardiovascular: Regular rate and rhythm. S1 and S2 are appreciated. Pulmonary: Breath sounds are clear. No increased work of breathing noted. Gastrointestinal: Abdomen is soft, nontender, nondistended with bowel sounds in all 4 quadrants. Extremities: No clubbing, cyanosis, or edema. Calves are nontender. Pulses palpable x4. Diagnostics: WBC is 10.2, with a hemoglobin of 6.5, hematocrit 20.8, and platelets of 146,000. Reticulocyte count is pending. ASSESSMENT AND PLAN: 1. Sickle cell crisis. 2. Anemia. We will continue to follow with the current regimen. 3. Dr. Hernadez did speak with the physician reiki practitioner for Dr. Salmon and he recommended no blood transfusion at the present, just as Dr. Salmon had at admission. Dictated by CORRINA Molina for Brock Patterson MD cc: CORRINA Molina MD
[2017-02-17] MEDS: FOLIC ACID PO SCH (09:55)
[2017-02-17] MEDS: HYDREA PO SCH ×2 (09:55→20:41)
[2017-02-17] MEDS: DURAGESIC 12 MICROGM/HR PATCH TD SCH (09:55)
[2017-02-18] MEDS: DILAUDID IV PRN ×6 (01:44→20:42)
[2017-02-18] MEDS: BENADRYL IV PRN ×5 (08:09→20:42)
[2017-02-18] MEDS: HYDREA PO SCH ×2 (08:09→20:41)
[2017-02-18] MEDS: FOLIC ACID PO SCH (08:09)
[2017-02-18] MEDS: NS 1,000 ML IV SCH ×2 (08:22→20:41)
[2017-02-18 08:24] LABS: RETIC% 18.35 % (0.8-2.1); RETIC-HE 22.4 PG (28.2-36.6)
[2017-02-18 08:25] LABS: BASO% 0.4 % (0.0-0.8); EOS# 0.22 X1000 (0.0-0.7); HEMATOCRIT 21.6 % (37.0-47.0); HEMOGLOBIN 7.2 g/dL (12.0-16.0); IMM GRAN# 0.03 X1000 (0.0-0.04); IMM GRAN% 0.3 % (0.0-0.5); LYMPH# 3.82 X1000 (1.2-3.4); LYMPH% 34.5 % (20.5-51.1); MANUAL DIFF NEEDED? YES; MCH 26.1 PG (27-31); MCHC 33.3 g/dL (33-37); MCV 78.3 FL (81-99); MONO# 0.76 X1000 (0.11-0.59); MONO% 6.9 % (1.7-9.3); MPV 8.8 FL (7.4-10.4); NEUT% 55.9 % (42.2-75.2); PLT 171 X1000 (130-400); RBC 2.76 XMIL (4.2-5.4)
[2017-02-18 08:31] LABS: EOS 2 % (1-10); LYMPHS 35 % (21-51); MONO 3 % (1-9); NRBC 3 % (0-0)
[2017-02-18 08:33] LABS: HYPOCHROM 1+; TARGET CELLS 2+
--- NOTE | 2017-02-18 09:03 | PROGRESS NOTE ---
DATE: 02/18/2017 SUBJECTIVE: The patient is still having trouble sleeping, still having lots of pain, still having occasional shortness of breath, still having generalized body pain. Denies any nausea, vomiting, fevers, or chills. She is able to ambulate the bloom without any difficulty. PHYSICAL EXAMINATION: Vital Signs: Temperature 97, pulse 68, respiratory rate 18, BP 92/44 to 110/63. General: She is awake, alert. She is in no respiratory distress. Neck: Supple. CV: Regular rate. Chest: Clear. Abdomen: Soft. Extremities: Moves all extremities. Neurologic: No changes. LABS: Hemoglobin and hematocrit 7 and 21. Reticulocyte count is better at 18.3 down from 23.6 on admission. ASSESSMENT: 1. Sickle cell crisis. 2. 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 PLAN: We will continue pain control, IV fluids, oxygen. We will not transfuse yet as her hemoglobin and hematocrit are actually slightly improved. cc: Kristian Jasso MD
[2017-02-18] MEDS: SODIUM CHLORIDE 0.9% INJ PRN (11:27)
[2017-02-18] MEDS: PHENERGAN IV PRN ×2 (11:28→20:42)
[2017-02-19] MEDS: DILAUDID IV PRN ×7 (00:09→21:12)
[2017-02-19] MEDS: BENADRYL IV PRN ×6 (00:09→21:12)
[2017-02-19] MEDS: PHENERGAN IV PRN ×3 (03:52→21:11)
[2017-02-19] MEDS: HYDREA PO SCH ×3 (07:47→21:11)
[2017-02-19] MEDS: FOLIC ACID PO SCH ×2 (07:47→11:02)
[2017-02-19 08:07] LABS: HEMATOCRIT 22.2 % (37.0-47.0); HEMOGLOBIN 7.5 g/dL (12.0-16.0); MCH 26.1 PG (27-31); MCHC 33.8 g/dL (33-37); MCV 77.4 FL (81-99); RBC 2.87 XMIL (4.2-5.4)
[2017-02-19 08:31] LABS: MPV 8.5 FL (7.4-10.4)
--- NOTE | 2017-02-19 08:39 | PROGRESS NOTE ---
DATE: 02/19/2017 SUBJECTIVE: The patient still complains of chest pain, shoulder pain, neck pain, back pain, leg pain, abdominal pain. Her pain actually seems to increase the longer I am in the room. PHYSICAL: Vital Signs: Temperature 98, pulse 108, respiratory 18, BP 121/55. General: Patient is awake, alert. She is currently in no respiratory distress. HEENT: Normocephalic, atraumatic. ALE. Neck: Supple. Cardiovascular: Regular rate. Chest: Clear. Abdomen: Soft. Extremities: Moves all extremities. DIAGNOSTIC DATA: WBC is 11, hemoglobin and hematocrit 7.5 and 22. ASSESSMENT: 1. Sickle cell pain crisis. 2. Sickle cell anemia. Her hemoglobin and hematocrit is actually her stable baseline at 7 and 22. Therefore, will not transfuse at the present time. PLAN: We will not transfuse as noted, her hemoglobin and hematocrit is stable. However, we will begin decreasing her Dilaudid and will continue to follow. Hopefully, she can be discharged home soon. She appears to have eaten very well from the boxes that are in her room. cc: Kristian Jasso MD
[2017-02-19] MEDS: NS 1,000 ML IV SCH ×2 (11:23→21:11)
[2017-02-19] MEDS: SODIUM CHLORIDE 0.9% INJ PRN (14:48)
[2017-02-20] MEDS: BENADRYL IV PRN ×5 (00:34→18:07)
[2017-02-20] MEDS: DILAUDID IV PRN ×5 (00:34→18:07)
[2017-02-20] MEDS: PHENERGAN IV PRN ×2 (05:54→14:05)
[2017-02-20 08:33] LABS: HEMOGLOBIN 7.3 g/dL (12.0-16.0); MCH 25.4 PG (27-31); MCHC 33.2 g/dL (33-37); MCV 76.7 FL (81-99); MPV 8.5 FL (7.4-10.4); RBC 2.87 XMIL (4.2-5.4); RETIC% 9.14 % (0.8-2.1); RETIC-HE 22.4 PG (28.2-36.6)
[2017-02-20 08:52] LABS: AGAP 10; ALBUMIN 4.2 g/dL (3.5-5.0); ALKALINE PHOSPHATASE 107 U/L (32-104); BUN 9 mg/dL (8-22); CALCIUM 8.5 mg/dL (8.8-10.2); CHLORIDE 102 mmol/L (98-107); COSMO 274; GOT 46 U/L (10-30); GPT 25 U/L (10-36); POTASSIUM 4.1 mmol/L (3.5-5.1); SODIUM 138 mmol/L (136-145); TCO2 26 mmol/L (25-35)
[2017-02-20] MEDS: FOLIC ACID PO SCH (08:52)
[2017-02-20] MEDS: NS 1,000 ML IV SCH ×2 (08:52→18:07)
[2017-02-20] MEDS: HYDREA PO SCH ×2 (08:52→22:54)
--- NOTE | 2017-02-20 08:56 | PROGRESS NOTE ---
DATE: 02/20/2017 PHYSICAL: Vital Signs: Temperature 98, pulse 93, respiratory 16, BP 117/70, saturation 100% on room air. General: The patient is awake, alert. She is lying in bed. She is in no respiratory distress. Neck: Supple. CV: Regular rate, chest clear. Nonlabored. Abdomen: Soft. Extremities: Moves all extremities. Neurologic: No changes. LABS: Currently still pending this morning. ASSESSMENT: 1. Sickle cell pain crisis. 2. Sickle cell anemia, although her hemoglobin and hematocrit has been stable at 7 and 22, which is her baseline and her manager travel does not want her transfused unless she is below 6. 3. Pain control. PLAN: Discussed with Ms. Henley that if she is too weak, tired, fatigued and sedated to be able to speak loud enough to be heard, then we certainly need to stop her pain medication. At that point, her speech became regular volume, regular rate, very easy to understand. Interestingly, she was worried about going home and then before I walked out of the room, she asked when can she go home. We will wait on her discharge until after her hemoglobin and hematocrit is again stable. If it is above 7, certainly should be able to discharge home today. cc: Kristian Jasso MD
[2017-02-20] MEDS: DURAGESIC 12 MICROGM/HR PATCH TD SCH (09:00)
[2017-02-20] MEDS: SODIUM CHLORIDE 0.9% INJ PRN (14:05)
[2017-02-21] MEDS: NS 1,000 ML IV SCH ×3 (03:39→20:19)
[2017-02-21] MEDS: PHENERGAN IV PRN ×2 (03:39→11:52)
[2017-02-21] MEDS: DILAUDID IV PRN ×3 (03:39→18:48)
[2017-02-21] MEDS: BENADRYL IV PRN ×2 (03:39→11:52)
[2017-02-21] MEDS: HYDREA PO SCH ×2 (09:14→20:18)
[2017-02-21] MEDS: NORCO-10 PO PRN ×3 (09:15→21:47)
[2017-02-21] MEDS: FOLIC ACID PO SCH (09:15)
--- NOTE | 2017-02-21 09:49 | Diag Imaging Result Doc PS360 ---
CT THORAX W/CONTRAST - 02/21/2017 INDICATION: cp /sickle cell TECHNIQUE: A CT dose reduction protocol was used. COMPARISON: 12/25/2016 FINDINGS: Heart size is borderline enlarged similar to prior. There is a stable left chest port in good position. Stable anatomic variant of the right subclavian artery. There is stable tiny granuloma in the right middle lobe. The lungs are clear of infiltrate. No pneumothorax or pleural effusion. The spleen size is somewhat enlarged measuring 11 x 6.4 cm. There are also some stable hyperenhancing rounded nodules throughout the spleen similar to prior. There are cholecystectomy clips. Stable chronic bony changes but no acute bony lesions. IMPRESSION: 1. Stable borderline heart size. 2. Stable splenomegaly with internal nodules. Suggestive of extra medullary hematopoiesis. 3. No infiltrates in the lungs. Electronically signed by Errol Curiel 02/21/2017 9:47 AM
[2017-02-21] MEDS: SODIUM CHLORIDE 0.9% INJ PRN (11:53)
[2017-02-21] MEDS ORDERED: DILAUDID IV PRN (18:16)
[2017-02-21] MEDS ORDERED: TYLENOL PO PRN (18:18)
[2017-02-21] MEDS ORDERED: ZOFRAN IV PRN (18:18)
--- NOTE | 2017-02-21 18:50 | PROGRESS NOTE ---
DATE: 02/21/2017 SUBJECTIVE: Patient is still complaining of chest pain, back pain, shoulder pain, abdominal pain. She states the pain has not changed at all since she has been in the hospital. She asking to increase her Dilaudid. PHYSICAL: Vital Signs: Temperature 98, pulse 100, respiratory rate 18, BP 115/67, saturation 95% on room air. General: Patient is awake, alert, oriented. She is lying covered up in the bed. Her speech again as yesterday is very soft, slow. Very difficult to hear, until forcing patient to speak up where she can be heard. This is simply done by telling her if she cannot speak loud enough to be heard, she cannot have Dilaudid. Then her speech is regular rate. Regular volume, very easily understood. HEENT: Normocephalic. Neck: Supple. CV: Regular rate. Chest: Clear, nonlabored. Abdomen: Soft. Extremities: Moves all extremities. Neurologic: No changes. LABS: No new labs today. ASSESSMENT: 1. Chest pain. Discussed with Ms. Henley that her CBC and reticulocyte count are better than her average and she does not appear to need a transfusion at this point. However, given her amount of chest pain, will check a CT of the chest to rule out any infectious etiology. We will continue to follow. 2. Sickle cell pain crisis. The patient currently is on her home pain medications with Dilaudid. Orders after her CT. cc: Kristian Jasso MD
[2017-02-21] MEDS ORDERED: DURAGESIC 12 MICROGM/HR PATCH TD SCH (22:00)
[2017-02-22] MEDS: DILAUDID IV PRN ×5 (02:42→22:44)
[2017-02-22] MEDS: BENADRYL IV PRN ×3 (02:42→21:28)
[2017-02-22] MEDS: NS 1,000 ML IV SCH ×2 (06:11→21:10)
[2017-02-22 07:14] LABS: HEMATOCRIT 20.8 % (37.0-47.0); HEMOGLOBIN 6.7 g/dL (12.0-16.0); MCH 25.1 PG (27-31); MCHC 32.2 g/dL (33-37); MCV 77.9 FL (81-99); MPV 8.4 FL (7.4-10.4); RBC 2.67 XMIL (4.2-5.4); RETIC% 6.97 % (0.8-2.1); RETIC-HE 22.4 PG (28.2-36.6)
[2017-02-22 07:24] LABS: AGAP 9; ALBUMIN 3.9 g/dL (3.5-5.0); ALKALINE PHOSPHATASE 103 U/L (32-104); BUN 7 mg/dL (8-22); CALCIUM 8.4 mg/dL (8.8-10.2); CHLORIDE 105 mmol/L (98-107); COSMO 279; GOT 40 U/L (10-30); GPT 23 U/L (10-36); SODIUM 141 mmol/L (136-145); TCO2 27 mmol/L (25-35); TOTAL BILIRUBIN 0.95 mg/dL (0.20-1.00); TOTAL PROTEIN 6.4 g/dL (6.3-8.3)
[2017-02-22] MEDS: PHENERGAN IV PRN ×2 (09:31→18:50)
[2017-02-22] MEDS: HYDREA PO SCH ×2 (09:45→21:28)
[2017-02-22] MEDS: FOLIC ACID PO SCH (09:45)
--- NOTE | 2017-02-22 11:17 | CONSULTATION ---
DATE OF CONSULTATION: 02/22/2017 ADMITTING PHYSICIAN: Dr. Bharat Hernadez. REQUESTING PHYSICIAN: Dr. Bharat Hernadez. We appreciate this consult. CHIEF COMPLAINT: Sickle cell crisis. HISTORY OF PRESENT ILLNESS: Ms. Henley is a very pleasant 21-year-old female who is well known to Dr. Salmon with a history of sickle cell anemia. The patient presented to [facility] on 02/13/2017 with complaints of chest pain. At that time, her hemoglobin was found to be 6 and reticulocyte count was 22%, which was much greater than her baseline level. The patient was admitted to [facility] for sickle cell crisis. She has been transferred to [facility] as of yesterday secondary to persistent crisis with persistent anemia. Today, her hemoglobin is found to be 6.7. The patient does continue to complain of chest wall pain mid- sternum. She denies any other significant complaints at this time. We are consulted to follow along as the patient is seen by Dr. Salmon. PAST MEDICAL HISTORY: Sickle cell disease. PAST SURGICAL HISTORY: 1. Cholecystectomy. 2. Hip surgery secondary to avascular necrosis. 3. Numerous port infections, status post removal and replacement. SOCIAL HISTORY: The patient does not use tobacco or alcohol. She denies any illicit drug use. MEDICATIONS ON ADMISSION: 1. Fentanyl. 2. [place]. 3. Hydroxyurea. ALLERGIES: Latex, Demerol, vancomycin, and morphine. REVIEW OF SYSTEMS: A 14-point review of systems was obtained and is negative except as mentioned in the HPI. PHYSICAL EXAMINATION: General: Ms. Henley is a very pleasant 21-year-old female, lying supine in bed, somewhat tearful at this time, complaining of chest pain. Vital Signs: Temperature 98.5 degrees, blood pressure 112/65, heart rate 89, respirations 20, and O2 saturation is 100% on room air. HEENT: Normocephalic, atraumatic. Mucous membranes are pale and moist. Sclerae are anicteric. Extraocular movements intact. Neck: Supple. Lungs: Clear to auscultation bilaterally. Chest expansion is equal bilaterally. Cardiovascular: S1 and S2 heard, without murmur, rub, or gallop. Abdomen: Soft, nondistended, nontender. Bowel sounds are positive in all quadrants, without rebound or guarding noted. Extremities: Without clubbing, cyanosis, or edema. Dermatologic: No rashes, bruises, or lesions. Neurologic: Patient is awake, alert, and oriented x3. She has no focal motor deficit at this time. LABORATORY DATA: Hemoglobin 6.7, hematocrit 20.8, white blood cell count 8.97, platelets 227,000. Sodium 141, potassium 4.0, chloride 105, CO2 is 27, BUN 7, creatinine 0.4, and glucose is 95. Calcium is 8.4. Reticulocyte count is 6.97. IMAGING STUDIES: CT of the chest reveals stable splenomegaly with internal nodule suggestive of medullary hematopoiesis. ASSESSMENT AND PLAN: 1. Sickle cell crisis. The patient is well known to Dr. Salmon with a history of sickle cell disease and has had numerous hospitalizations for the same. Presently, she is transferred to [facility] secondary to persistent anemia with a hemoglobin of 6.7 today. She will be transfused 2 units packed red blood cells. We will continue to monitor her CBC as well as reticulocyte count. 2. Chest pain. The patient does report continued chest pain at this time. We will continue to monitor, with questionable change in medication regimen as deemed appropriate. 3. We will continue to follow along with you and make further recommendations pending outcomes. The above reflects the history, examination, assessment and plan of Dr. Salmon. Dictated by CORRINA Ramirez for Rigo Salmon MD cc: CORRINA Ramirez MD
[2017-02-22] MEDS ORDERED: TYLENOL PO ONE (12:46)
[2017-02-22] MEDS ORDERED: BENADRYL PO ONE (12:47)
[2017-02-22] MEDS ORDERED: DECADRON PO ONE (12:48)
[2017-02-22] MEDS ORDERED: DURAGESIC 25 MICROGM/HR PATCH TD SCH (15:45)
[2017-02-22] MEDS: SODIUM CHLORIDE 0.9% INJ PRN (16:34)
[2017-02-22] MEDS: DURAGESIC 12 MICROGM/HR PATCH TD SCH (17:02)
--- NOTE | 2017-02-22 17:29 | PROGRESS NOTE ---
DATE: 02/22/2017 SUBJECTIVE: She is complaining of a lot of pain. They ordered 2 units of packed red blood cells for transfusion. She has a fentanyl patch but it keeps coming off, and she is getting IV Dilaudid. OBJECTIVE: Afebrile. Temperature 98.5 degrees, pulse 107, respiration 20, blood pressure 110/60.Lungs: Clear in all lung farmer. Cardiovascular: Regular rhythm and rate without murmur or S3. Abdomen: Soft. Skin: Warm and dry. Output: Urine output is 4700 mL. LAB: White count 8970, hematocrit 29, platelet count 227,000. Sodium 140, potassium 4.0, chloride 105, bicarb 29, BUN 7, creatinine 0.4. ASSESSMENT AND PLAN: 1. Sickle cell crisis. Well known to Dr. Salmon. She has a history of sickle cell anemia. The patient presented to [facility] on 01/26/2017 with chest pain. At that time hemoglobin was 6, reticulocyte was 22%, which is a much greater than her baseline level. Patient was admitted to [facility] for sickle cell crisis. Transferred here to [place]. Followed by Dr. Salmon. Continue IV fluids. Give her 2 units packed red blood cells. Try not to increase the Dilaudid at this point. 2. Chest pain which continues. She also has shoulder and back pain. Chest CT done on 02/21/2017, stable splenomegaly with internal nodules suggestive of extramedullary hematopoiesis, no infiltrates in the lungs. cc: Saúl Arenas MD
[2017-02-22] MEDS: NORCO-10 PO PRN (21:28)
[2017-02-23] MEDS: BENADRYL IV PRN ×5 (02:05→20:33)
[2017-02-23] MEDS: NS 1,000 ML IV SCH ×3 (02:05→20:31)
[2017-02-23] MEDS: SODIUM CHLORIDE 0.9% INJ PRN ×2 (02:08→20:33)
[2017-02-23] MEDS: DILAUDID IV PRN ×5 (02:09→20:32)
[2017-02-23] MEDS: PHENERGAN IV PRN ×3 (02:09→20:33)
[2017-02-23] MEDS: NORCO-10 PO PRN (03:30)
[2017-02-23] MEDS: FOLIC ACID PO SCH (09:32)
[2017-02-23] MEDS: HYDREA PO SCH ×2 (09:32→20:33)
--- NOTE | 2017-02-23 12:17 | PROGRESS NOTE ---
DATE: 02/23/2017 SUBJECTIVE: Ms. Henley is still hurting, although when I walked in the room she was resting comfortably. When I asked her how she is doing, she started shaking and crying. She would like us to go up on the pain medicine. At the present time, up to Dilaudid 1 mg q.4 hours and she would like to go up to 2, so I will let her try that. She does have sickle cell and does complain of chest pain. She also has a fentanyl patch 12.5. She refused a 2nd unit of blood. She is very adamant that she wants to see Dr. Salmon, and does not feel like we are working to help her. I explained that we are on a pretty high level of hydrocodone, and I do not want to suppress her respirations and have her end up on a ventilator. PHYSICAL EXAMINATION: Vital Signs: Today, temperature 97.7 degrees, pulse 67, blood pressure 139/73. HEENT: Pupils are equal and round. Lungs: Clear in all lung farmer. Cardiovascular: Regular rhythm and rate, without murmur or S3. Abdomen: Soft. Skin: Warm and dry. URINE OUTPUT: 1500 mL. LABORATORY: Yesterday, white count 8970, hematocrit 20. Her reticulocyte count was down to 6970. When she came in, it was 18. She did get 1 unit of blood. ASSESSMENT AND PLAN: 1. Sickle cell crisis, followed by Dr. Salmon. She has underlying sickle cell anemia. Still in a good deal of pain. Reticulocyte count has come down. She got 1 unit of blood. I am hesitant to go up on her pain medicine, but we will try 2 mg q.4 and see. Discussed with nurses we are going to try that. 2. Chest pain syndrome. I do not see any sign that it is cardiac ischemia. Continue to monitor her CBC and reticulocyte count. REVIEW OF ORDERS: She is getting folic acid 1 mg daily and hydroxyurea 500 mg b.i.d. cc: Saúl Arenas MD
[2017-02-24] MEDS: DILAUDID IV PRN ×6 (00:27→20:38)
[2017-02-24] MEDS: BENADRYL IV PRN ×6 (00:27→20:37)
[2017-02-24] MEDS: DURAGESIC 12 MICROGM/HR PATCH TD SCH (03:25)
[2017-02-24] MEDS: PHENERGAN IV PRN ×3 (04:30→20:38)
[2017-02-24] MEDS: NS 1,000 ML IV SCH ×2 (07:40→18:01)
[2017-02-24] MEDS: HYDREA PO SCH ×2 (08:39→20:38)
[2017-02-24] MEDS: FOLIC ACID PO SCH (08:39)
--- NOTE | 2017-02-24 15:37 | PROGRESS NOTE ---
DATE: 02/24/2017 SUBJECTIVE: Ms. Henley says the pain is little better controlled, she was resting comfortably when I came in. She does not appear to be shaking as bad and crying when I wake her up. I did go up on the Dilaudid. She is now getting 2 mg IV q.4 hours p.r.n., she is already on fentanyl patch 12.5. She has 1 unit of packed red blood cells. She was not taking her medicine. Dr. Salmon encouraged her to take her hydroxyurea. She is eating a little bit looks a little more comfortable. OBJECTIVE: Vital signs: Temperature 98.3 degrees, pulse 85, respirations 17, blood pressure 131/68. HEENT: Pupils are equal, round. Lungs: Are clear in all lung farmer. Cardiovascular: Regular rhythm and rate without murmur or S3. Abdomen: Soft. Skin: Warm and dry. O2 saturation 100%. LABS: Review of blood work from yesterday hematocrit 20, hemoglobin was 6.7. Electrolytes unremarkable. ASSESSMENT AND PLAN: 1. Sickle cell crisis. Dr. Salmon is following her. She got 1 unit packed red blood cells, was supposed to get 2, refused 2nd unit. We did go up on the Dilaudid, IV hydration, she is on hydroxyurea. 2. Chest pain syndrome. She does say having chest pain but I do not see evidence of cardiac ischemia so continue present regimen, encourage p.o. intake. Review of her orders I do not see any change. cc: Saúl Arenas MD
[2017-02-24] MEDS: SODIUM CHLORIDE 0.9% INJ PRN (20:38)
[2017-02-25] MEDS: BENADRYL IV PRN ×5 (00:35→22:59)
[2017-02-25] MEDS: DILAUDID IV PRN ×6 (00:35→22:59)
[2017-02-25] MEDS: PHENERGAN IV PRN ×3 (04:34→23:00)
[2017-02-25] MEDS: NS 1,000 ML IV SCH ×2 (04:34→14:27)
[2017-02-25] MEDS: SODIUM CHLORIDE 0.9% INJ PRN (04:34)
[2017-02-25] MEDS: FOLIC ACID PO SCH (08:40)
[2017-02-25] MEDS: HYDREA PO SCH ×2 (08:40→21:33)
[2017-02-25 12:19] LABS: BASO% 0.4 % (0.0-0.8); EOS% 1.5 % (0.0-10.0); HEMATOCRIT 26.2 % (37.0-47.0); HEMOGLOBIN 8.6 g/dL (12.0-16.0); IMM GRAN# 0.03 X1000 (0.0-0.04); IMM GRAN% 0.2 % (0.0-0.5); LYMPH# 3.53 X1000 (1.2-3.4); LYMPH% 26.9 % (20.5-51.1); MANUAL DIFF NEEDED? YES; MCH 25.1 PG (27-31); MCHC 32.8 g/dL (33-37); MCV 76.4 FL (81-99); MONO# 1.01 X1000 (0.11-0.59); MONO% 7.7 % (1.7-9.3); MPV 8.2 FL (7.4-10.4); NEUT% 63.3 % (42.2-75.2); PLT 245 X1000 (130-400); RBC 3.43 XMIL (4.2-5.4); RETIC% 5.21 % (0.8-2.1); RETIC-HE 26.7 PG (28.2-36.6)
[2017-02-25 12:33] LABS: EOS 2 % (1-10); LYMPHS 30 % (21-51); MONO 4 % (1-9)
[2017-02-25 12:34] LABS: TARGET CELLS 1+
[2017-02-25 12:39] LABS: AGAP 10; BUN 9 mg/dL (8-22); CALCIUM 8.7 mg/dL (8.8-10.2); CHLORIDE 99 mmol/L (98-107); COSMO 270; POTASSIUM 4.1 mmol/L (3.5-5.1); SODIUM 136 mmol/L (136-145); TCO2 27 mmol/L (25-35); TOTAL BILIRUBIN 0.88 mg/dL (0.20-1.00)
[2017-02-25 12:40] LABS: ALBUMIN 4.1 g/dL (3.5-5.0); ALKALINE PHOSPHATASE 108 U/L (32-104); GOT 33 U/L (10-30); GPT 24 U/L (10-36); TOTAL PROTEIN 6.9 g/dL (6.3-8.3)
--- NOTE | 2017-02-25 17:31 | PROGRESS NOTE ---
DATE: 02/25/2017 SUBJECTIVE: The patient states she feels a little better. A little less pain but she does want us to back down on pain medicines. She is hoping to go home in a couple of days. OBJECTIVE: Vital signs: Temp 99.4 degrees, pulse 107, respirations 21, blood pressure 136/78. HEENT: Pupils are equal, round. Lungs: Clear in all lung farmer. Cardiovascular: Regular rhythm and rate without murmur or S3. Abdomen: Soft. Skin: Warm and dry. : Urine output 1200 to 1300 mL. LAB: White count 13,130, hematocrit 26, platelet count 245,000. Sodium 136, potassium 4.1, chloride 99, BUN 9, creatinine 0.6. ASSESSMENT AND PLAN: 1. Sickle cell crisis. Followed by Dr. Salmon. She has had 1 unit of packed red blood cells. She seems to be in a little less pain. She is on a high dose of Dilaudid 2 mg IV q.4 hours p.r.n. 2. Chest pain. Hemodynamically appears stable at this point. She is on hydroxyurea. She said she would like to cut down on the Dilaudid tomorrow, so will see. cc: Saúl Arenas MD
[2017-02-25] MEDS: DURAGESIC 12 MICROGM/HR PATCH TD SCH (21:33)
[2017-02-26] MEDS: BENADRYL IV PRN ×5 (02:57→22:53)
[2017-02-26] MEDS: NS 1,000 ML IV SCH ×3 (02:57→19:07)
[2017-02-26] MEDS: SODIUM CHLORIDE 0.9% INJ PRN (02:57)
[2017-02-26] MEDS: DILAUDID IV PRN ×6 (02:58→22:53)
[2017-02-26] MEDS: PHENERGAN IV PRN ×3 (07:06→22:53)
[2017-02-26] MEDS: FOLIC ACID PO SCH (09:19)
[2017-02-26] MEDS: HYDREA PO SCH ×2 (09:19→20:57)
--- NOTE | 2017-02-26 13:37 | PROGRESS NOTE ---
DATE: 02/26/2017 She states she is still hurting. She does look to appear to be feeling better. She does not want to reduce her pain medicine. Temp 98.4 degrees, pulse 97, respirations 20, blood pressure 117/70.HEENT: Pupils are equal round. CVP less than 6 cm. Lungs: Clear in all lung farmer. Cardiovascular: Regular rhythm and rate without murmur or S3. Urine output 3700 mL. LAB: From yesterday, hematocrit 26, hemoglobin 8.6. Chemistries: Sodium 136, potassium 4.1, chloride 99, BUN 9, creatinine 0.5. ASSESSMENT AND PLAN: 1. Sickle cell crisis. The pain does appear to be better. We need to start cutting back her pain medicine. She did receive 1 unit of packed red blood cells. She is on hydroxy urea. She is not eating much yet. 2. Back pain and chest pain related to sickle cell. I do not see any evidence of cardiac ischemia. Continue present orders. She is on a fentanyl patch 12 mcg patch q.72 hours and she is getting IV Dilaudid at 2 mg IV q.4 hours p.r.n. See if we can cut this down tomorrow. cc: Saúl Arenas MD
[2017-02-27] MEDS: NS 1,000 ML IV SCH ×5 (02:52→23:09)
[2017-02-27] MEDS: BENADRYL IV PRN ×4 (02:52→19:06)
[2017-02-27] MEDS: DURAGESIC 12 MICROGM/HR PATCH TD SCH ×2 (02:52→05:01)
[2017-02-27] MEDS: DILAUDID IV PRN ×6 (02:52→23:09)
[2017-02-27] MEDS: PHENERGAN IV PRN ×3 (06:11→23:09)
[2017-02-27 07:04] LABS: BASO% 0.4 % (0.0-0.8); EOS# 0.27 X1000 (0.0-0.7); EOS% 2.2 % (0.0-10.0); HEMOGLOBIN 7.7 g/dL (12.0-16.0); IMM GRAN# 0.03 X1000 (0.0-0.04); IMM GRAN% 0.2 % (0.0-0.5); LYMPH# 4.06 X1000 (1.2-3.4); LYMPH% 33.5 % (20.5-51.1); MANUAL DIFF NEEDED? YES; MCH 24.7 PG (27-31); MCHC 32.1 g/dL (33-37); MCV 76.9 FL (81-99); MONO# 0.87 X1000 (0.11-0.59); MONO% 7.2 % (1.7-9.3); MPV 8.3 FL (7.4-10.4); NEUT% 56.5 % (42.2-75.2); PLT 247 X1000 (130-400); RBC 3.12 XMIL (4.2-5.4)
[2017-02-27 07:29] LABS: LYMPHS 38 % (21-51); MONO 2 % (1-9); NRBC 1 % (0-0)
[2017-02-27 07:31] LABS: POLYCHROM 2+
[2017-02-27 07:32] LABS: HYPOCHROM 1+
[2017-02-27 07:33] LABS: TARGET CELLS 1+
[2017-02-27] MEDS: FOLIC ACID PO SCH (08:57)
[2017-02-27] MEDS: HYDREA PO SCH ×2 (08:57→23:16)
--- NOTE | 2017-02-27 16:30 | PROGRESS NOTE ---
DATE: 02/27/2017 SUBJECTIVE: She feels better, less pain, but she does not want to decrease. She says she will try and decrease the interval in which they gave her the Dilaudid. She getting 2 mg q. 4 hours right now. Also she has a fentanyl patch 12.5. She is not eating much yet, but remains afebrile. OBJECTIVE: Vital Signs: She remains afebrile. Pulse 80, respirations 16, blood pressure 113/56. Lungs: Clear in all lung farmer. Cardiovascular: Exam reveals regular rhythm and rate without murmur or S3. O2 saturation 97%. LAB: We checked some labs on the . Hematocrit was 24, hemoglobin 7.7. ASSESSMENT AND PLAN: 1. Sickle cell disease and sickle cell crisis appears to be getting better. She is requiring fairly high doses of Dilaudid. She wants to try to decrease her interval before we decrease the dose. She did receive 1 pack of packed red blood cells. She is on hydroxyurea. 2. Back pain and chest pain which is improving. Encourage oral intake. Encourage her to decrease her pain medication intervals or increase them. cc: Saúl Arenas MD
[2017-02-28] MEDS: NS 1,000 ML IV SCH ×3 (01:22→18:02)
[2017-02-28] MEDS: DILAUDID IV PRN ×4 (03:21→20:21)
[2017-02-28] MEDS: BENADRYL IV PRN ×3 (03:21→14:11)
[2017-02-28 07:20] LABS: BASO% 0.4 % (0.0-0.8); EOS# 0.32 X1000 (0.0-0.7); EOS% 2.4 % (0.0-10.0); HEMATOCRIT 25.2 % (37.0-47.0); HEMOGLOBIN 8.2 g/dL (12.0-16.0); IMM GRAN# 0.04 X1000 (0.0-0.04); IMM GRAN% 0.3 % (0.0-0.5); LYMPH# 3.96 X1000 (1.2-3.4); LYMPH% 29.4 % (20.5-51.1); MANUAL DIFF NEEDED? YES; MCH 25.2 PG (27-31); MCHC 32.5 g/dL (33-37); MCV 77.3 FL (81-99); MONO# 0.91 X1000 (0.11-0.59); MONO% 6.7 % (1.7-9.3); MPV 8.2 FL (7.4-10.4); NEUT% 60.8 % (42.2-75.2); PLT 248 X1000 (130-400); RBC 3.26 XMIL (4.2-5.4)
[2017-02-28 07:55] LABS: BANDS 2 % (0-1); EOS 4 % (1-10); LYMPHS 26 % (21-51); MONO 10 % (1-9); NRBC 3 % (0-0)
[2017-02-28] MEDS: FOLIC ACID PO SCH ×3 (08:08→20:21)
[2017-02-28] MEDS: HYDREA PO SCH ×3 (08:08→20:21)
[2017-02-28] MEDS: DURAGESIC 12 MICROGM/HR PATCH TD SCH (11:45)
--- NOTE | 2017-02-28 16:51 | PROGRESS NOTE ---
DATE: 02/28/2017 SUBJECTIVE: When I evaluated this patient, this patient was feeling better. She was not complaining of severe or moderate pain, but she does not want to decrease the dose of her medications. She has been hospitalized for 15 days and she has been receiving every single day Dilaudid. I will decrease the dose of this medication from 2 to 1 and I will decrease the interval dose from q.4 hours to q.6 hours. Also I will stop the Phenergan because she is not having any nausea or vomiting and I will stop also the Benadryl. She does not have any signs or symptoms of allergies. OBJECTIVE: Vital Signs: Temperature 98.1 degrees, pulse 92, respiratory rate 18, blood pressure 102/60, oxygen saturation 98 on room air. HEENT: Head normocephalic. No trauma. PERRLA. Neck: Supple. No JVD. No masses. Central trachea. Chest: Clear to auscultation. No wheezing. No rales. Abdomen: Soft, nontender, nondistended. Extremities: No edema. No clubbing. No cyanosis. Skin: Pale. Neurological: The patient is alert and oriented x3. No focal deficits. LABORATORY: WBC 13.4, hemoglobin 8.2, hematocrit 25.2, platelets 248,000. ASSESSMENT AND PLAN: 1. Sickle cells disease and sickle cell crisis. It looks like this is getting better. She is still asking for pain medication but I do not think she requires that amount of any medications. She has been hospitalized for roughly 15 days and she has been getting Dilaudid every day. Also, she has been getting IV hydration and hydroxyurea. I will decrease the dose of Dilaudid. Also, I will stop the Benadryl. I do not see any signs or symptoms all allergies and she is not complaining of nausea or vomiting. She is on Zofran. I will stop the Phenergan. 2. Drug abuse. This patient is constantly coming to the emergency department complaining about pain and asking for the pain medication. We have always been having trouble with this patient because she has always been asking for the same amount of medication and always asking for more. I explained to her that she is already on a fentanyl patch and also on p.o. medication for pain and this probably should be enough. For now we will continue with Dilaudid but I will decrease the frequency and the dose. cc: Eros Redmond MD
[2017-03-01] MEDS: DILAUDID IV PRN ×3 (02:53→15:43)
[2017-03-01 08:23] LABS: BASO% 0.4 % (0.0-0.8); EOS# 0.24 X1000 (0.0-0.7); EOS% 1.8 % (0.0-10.0); HEMATOCRIT 24.9 % (37.0-47.0); HEMOGLOBIN 8.3 g/dL (12.0-16.0); IMM GRAN# 0.03 X1000 (0.0-0.04); IMM GRAN% 0.2 % (0.0-0.5); LYMPH# 2.44 X1000 (1.2-3.4); LYMPH% 18.6 % (20.5-51.1); MANUAL DIFF NEEDED? YES; MCH 25.5 PG (27-31); MCHC 33.3 g/dL (33-37); MCV 76.6 FL (81-99); MONO# 1.19 X1000 (0.11-0.59); MONO% 9.1 % (1.7-9.3); MPV 8.1 FL (7.4-10.4); NEUT% 69.9 % (42.2-75.2); PLT 236 X1000 (130-400); RBC 3.25 XMIL (4.2-5.4); RETIC% 6.08 % (0.8-2.1); RETIC-HE 25.4 PG (28.2-36.6)
[2017-03-01 08:42] LABS: HYPOCHROM 1+; LYMPHS 23 % (21-51); MONO 5 % (1-9); NRBC 1 % (0-0); TARGET CELLS OCCASIONAL
[2017-03-01] MEDS: NS 1,000 ML IV SCH (09:17)
[2017-03-01] MEDS: FOLIC ACID PO SCH (09:20)
[2017-03-01] MEDS: HYDREA PO SCH (09:20)
--- NOTE | 2017-03-01 14:23 | DISCHARGE SUMMARY ---
ADMISSION DATE: 02/13/2017 DISCHARGE DATE: 03/01/2017 CONSULTATIONS: Dr. Salmon. PERTINENT PROCEDURES: Chest CT showed stable borderline heart size. Stable splenomegaly with internal nodule suggestive of extramedullary hematopoiesis infiltrates in the lungs. DISCHARGE DIAGNOSES: 1. Sickle cell crisis. Improved. 2. Chest pain. Improved. 3. Drug abuse. The patient is well known to our service for coming to the ED complaining of pain and asking for pain medicines. Unable to control her pain at [facility], she was transferred to [facility] with a consult for Dr. Salmon. The patient will continue on her home medications. Again she has been educated in the past that the patient has an opiate dependency. The patient has been educated on the development of tolerance and dependence. She has been explained the long- term effects of pain medication that includes nausea, vomiting, abdominal distention, bloating, constipation and even more damaging liver damage, brain damage due to hypoxia resulting from respiratory depression. HOSPITAL COURSE: Ms. Henley is a 21-year-old female, well known to our service for frequent admissions for sickle cell crisis. Came to the ED at [facility] for sickle cell crisis pains for 24 hours. She was in the ED the day prior. She has her normal pain; however, her blood count was low with a hematocrit of 6 and a reticulocyte was 22 which was a lot higher than her usual normal levels on her laboratory data. The patient was admitted to [facility] for sickle cell crisis. She spent several days getting IV pain medicines along with her home pain medicines , as well as Benadryl and IV Phenergan. The patient still complained of chest pain. Was wanting her IV Dilaudid increased. They did do a CT of the chest. It did not show anything acute. She was transferred to [facility] secondary to lack of subspecialty with Hematology. Dr. Salmon saw the patient. They did transfuse 2 units of blood. However, the patient received 1 and refused the 2nd. She continued to have pain throughout her stay. She is now stabilized. LABORATORY DATA: Her laboratory data has remained stable. Hemoglobin and hematocrit on the day of her discharge is 8.3 and 24. Her reticulocyte is 25. PHYSICAL EXAMINATION: Vital signs: Temperature is 98.9 degrees, heart rate 95 , respiration 19, blood pressure is 105/52. O2 is 99% on room air. The day before her discharge on 02/28/2017, Dr. Lindquist evaluated the patient. She was feeling better. She was not complaining of severe or moderate pain, but she did not want to decrease the dosage of her medications. She had been in the hospital for 15 days receiving every single day Dilaudid. The dose of Dilaudid was decreased from to 2 to 1 and interval q.4 hours to q.6 hours. Her Phenergan was stopped as well as her IV Benadryl as she was not having any signs and symptoms of allergies. No nausea or vomiting. Throughout her hospital stay she was on IV hydration as well as hydroxyurea. DISCHARGE DIET: Regular. DISCHARGE MEDICATIONS: 1. Tylenol 650 mg p.o. q.6 hours p.r.n. 2. Fentanyl Duragesic 12 mcg/hour q.72 h. 3. Folic acid 1 mg p.o. daily. 4. [place] 10 1 each p.o. q.6 hours p.r.n. pain. 5. Hydroxyurea 500 mg p.o. b.i.d. FOLLOW-UP: The patient is being discharged home with self care. She will need to follow up with Dr. Salmon as he suggested. The patient can return to the ED for any worsening of symptoms. DISCHARGE TIME: 30 minutes. Dictated by CORRINA Shetty for Eros Redmond MD cc: Eros Redmond MD MTDD
[2017-03-01] MEDS ORDERED: DURAGESIC 12 MICROGM/HR PATCH TD SCH (17:00)
[2017-03-01 17:10] VITALS: BP 148/93
== END 2017-03-01 17:10 | disposition home or self-care (01) ==
LOC: P.ED 11:14 → SUATTDRO 15:19 → P.MEDSURG 15:19 → 3N 02-21 18:14
PROVIDERS: ATTEND Internal Medicine

== ENCOUNTER 2017-03-24 10:12 | Inpatient (IN) ==
[2017-03-24] MEDS ORDERED: NS 1,000 ML IV ONE (10:34)
[2017-03-24] MEDS ORDERED: DILAUDID IV ONE (10:34)
[2017-03-24] MEDS ORDERED: ZOFRAN IV ONE (10:37)
[2017-03-24] MEDS ORDERED: TYLENOL PO ONE (10:38)
[2017-03-24 11:37] LABS: MANUAL DIFF NEEDED? NO
[2017-03-24 12:00] LABS: BASO% 0.3 % (0.0-0.8); EOS# 0.13 X1000 (0.0-0.7); HEMATOCRIT 27.2 % (37.0-47.0); HEMOGLOBIN 9.2 g/dL (12.0-16.0); IMM GRAN# 0.03 X1000 (0.0-0.04); IMM GRAN% 0.2 % (0.0-0.5); LYMPH# 2.48 X1000 (1.2-3.4); LYMPH% 18.7 % (20.5-51.1); MCH 25.8 PG (27-31); MCHC 33.8 g/dL (33-37); MCV 76.2 FL (81-99); MONO% 5.3 % (1.7-9.3); MPV 8.7 FL (7.4-10.4); NEUT% 74.5 % (42.2-75.2); PLT 271 X1000 (130-400); RBC 3.57 XMIL (4.2-5.4); RETIC% 3.69 % (0.8-2.1); RETIC-HE 24.5 PG (28.2-36.6)
[2017-03-24 12:08] LABS: AGAP 14; ALBUMIN 4.5 g/dL (3.5-5.0); ALKALINE PHOSPHATASE 93 U/L (32-104); AMYLASE 117 U/L (20-200); BUN 11 mg/dL (8-22); CALCIUM 8.9 mg/dL (8.8-10.2); CHLORIDE 102 mmol/L (98-107); COSMO 274; GOT 18 U/L (10-30); GPT 9 U/L (10-36); LIPASE 20 U/L (13-60); POTASSIUM 3.9 mmol/L (3.5-5.1); SODIUM 138 mmol/L (136-145); TCO2 22 mmol/L (25-35); TOTAL BILIRUBIN 1.06 mg/dL (0.20-1.00); TOTAL PROTEIN 7.4 g/dL (6.3-8.3)
[2017-03-24] MEDS ORDERED: SODIUM CHLORIDE 0.9% INJ ONE (12:20)
[2017-03-24] MEDS ORDERED: PHENERGAN IV ONE (12:20)
--- NOTE | 2017-03-24 12:24 | PROVIDER DOCUMENTATION ---
HPI-Fever - General Chief Complaint: Abdominal Pain Stated Complaint: VOMITING (SICKLE CELL) Time Seen by Provider: 03/24/17 10:37 Source: patient, old records Allergies/Adverse Reactions: Patient Allergies Allergy/AdvReac Type Severity Reaction Status Date / Time latex Allergy Mild RASH Verified 03/24/17 11:16 meperidine HCl * AdvReac Severe SHORTNESS Verified 03/24/17 11:16 [From Demerol] OF BREATH; AND HEADACHE vancomycin AdvReac Severe RASH Verified 03/24/17 11:16 morphine AdvReac Mild HEADACHE Verified 03/24/17 11:16 AND HIVES Home Medications: Home Medication List Medication Instructions Recorded Confirmed Last Taken Type Hydroxyurea 500 mg PO BID 06/17/16 03/24/17 03/22/17 History Folic Acid 1 mg PO DAILY #30 tablet 09/14/16 03/24/17 03/22/17 Rx Fentanyl 12 Microgm/Hr Patch 1 each TD Q72H #0 patch 12/10/16 03/24/17 03/20/17 Rx [Duragesic 12 Microgm/Hr Patch] Hydrocodone/APAP 10 mg/325 mg 1 each PO Q6H PRN PRN #18 tablet 03/01/1703/22/17 Rx [[place]-10] - History of Present Illness-Fever Nature of Presenting Problem: This pt, who has a hx of SS disease and is well known to the ED, presents today for the 2nd time in 24 hours for intractable pain and nausea. She reports several episodes of vomiting and pain that is typical of her SS pains. However, last night she noticed that she had a fever. Upon arrival Temp is 100.3. No other issues or complaints. Fever Severity/Quality: reports: low grade Onset/Duration: reports: last night Timing: reports: still present Context: reports: none Recent Illness?: reports: none Fever Therapy [employer]: Initiated none Cognitive Baseline: alert, oriented x3 Associated Symptoms: reports: muscle aches, nausea, vomiting Similar Symptoms Previously?: Yes Recently seen or treated by another doctor?: Yes - [place] Coma Score Best Eye Response ([place]): (4) open spontaneously Best Verbal Response ([place]): (5) oriented Best Motor Response ([place]): (6) obeys commands [place] Total: 15 Review of Systems - Adult - REVIEW OF SYSTEMS - ADULT Constitutional: reports: fever, fatique. denies: chills, night sweats Eyes: reports: no symptoms reported. denies: discharge, dry eyes Ears, Nose, Mouth & Throat: reports: no symptoms reported. denies: ear discharge, ear pain Cardiovascular: reports: no symptoms reported. denies: chest pain, edema Respiratory: reports: no symptoms reported. denies: chronic cough, cough Gastrointestinal: reports: nausea, vomiting. denies: abdominal pain, hematemesis Genitourinary: reports: no symptoms reported. denies: dysuria, discharge Musculoskeletal: reports: muscle aches. denies: bone pain, back pain Integumentary: reports: no symptoms reported. denies: hives, hair loss Neurological: reports: no symptoms reported. denies: ataxia, dizziness/vertigo Psychiatric: reports: no symptoms reported. denies: anxiety, anti-depressant use Endocrine: reports: no symptoms reported Hematologic/Lymphatic: reports: no symptoms reported Allergic/Immunologic: reports: no symptoms reported All Other Systems: Reviewed and Negative Past History - Adult - PAST MEDICAL HISTORY-ADULT Review of Records: reports: Old Records Reviewed, Nursing Assessment Review, Medications Reviewed, Social history reviewed & non-contributory. Major Childhood Illnesses: reports: denies history, history unknown Cardiovascular: reports: denies history Respiratory: reports: asthma Gastrointestinal: reports: denies history Obstetrical/Gynecological: reports: denies history Genitourinary: reports: denies history Musculoskeletal: reports: chronic pain (due sickle cell crisis) Neurological: reports: denies history Endocrine/Immune: reports: Sickle Cell disease Sickle Cell Genotype:: SS Other Conditions: reports: denies history - PRIOR SURGERIES/PROCEDURES Surgical/Procedure History: reports: cholecystectomy, indwelling device (P-A-C placement) - IMMUNIZATION STATUS Childhood Immunizations: See Nurse Assessment Flu Vaccine: See Nurse Assessment - FAMILY HISTORY Family History: sickle cell disease/trait Physical Exam-General - PHYSICAL EXAM-ADULT Initial Vital Signs Reviewed: Yes - CONSTITUTIONAL General Appearance: appears well, alert, no apparent distress - EYES Eyes: PERRL/EOMI, pink conjunctivae - HEAD, EARS, NOSE, MOUTH & THROAT HENMT: normocephalic/atraumatic, moist mucous membranes, normal ENT inspection - NECK Neck: supple, normal inspection - RESPIRATORY Respiratory: chest non-tender, lungs clear, normal breath sounds, no pleuratic chest pain, no respiratory distress, no accessory muscle use - CARDIOVASCULAR Cardiovascular: normal peripheral pulses, regular rate, rhythm - GASTROINTESTINAL (ABDOMEN) Abdominal Exam: normal bowel sounds, non tender, soft - LYMPHATIC Lymphatic: no adenopathy - MUSCULOSKELETAL Back Exam: normal inspection, no CVA tenderness, no vertebral tenderness Extremity: normal range of motion, non-tender Peripheral Pulses: radial (R): 2+, radial (L): 2+ - SKIN Integumentary: normal color, normal turgor, warm/dry. negative: diaphoresis - NEUROLOGIC Neurologic: grossly normal, no motor/sensory deficits - PSYCHIATRIC Psych/Mental Status: normal mood/affect, normal thought content, normal thought process, oriented x 3 Progress - PLAN OF CARE/RESULTS Progress/Plan/Lab Results: Vital Signs - 8 hr 03/24/17 10:25 Temperature 100.3 F H Pulse Rate 81 Respiratory Rate 18 Blood Pressure 126/77 O2 Sat by Pulse Oximetry 100 Laboratory Results - last 24 hr 03/24/17 03/24/17 03/24/17 11:27 11:27 12:31 WBC 13.23 H RBC 3.57 L Hgb 9.2 L Hct 27.2 L MCV 76.2 L MCH 25.8 L MCHC 33.8 RDW Std Deviation 21.1 H Plt Count 271 MPV 8.7 Immature Gran % (Auto) 0.2 Neut % (Auto) 74.5 Lymph % (Auto) 18.7 L [place] % (Auto) 5.3 Eos % (Auto) 1.0 Baso % (Auto) 0.3 Immature Gran # (Auto) 0.03 Neut # (Auto) 9.85 H Lymph # (Auto) 2.48 [place] # (Auto) 0.70 H Eos # (Auto) 0.13 Baso # (Auto) 0.04 Percent Retic 3.69 H Retic Hgb Equivalent 24.5 L Sodium 138 Potassium 3.9 Chloride 102 Carbon Dioxide 22 L Anion Gap 14 BUN 11 D Creatinine 0.5 Estimated GFR/1.73 m2 > 60 BUN/Creatinine Ratio 22 Glucose 85 Calculated Osmolality 274 Calcium 8.9 Total Bilirubin 1.06 H AST 18 ALT 9 L Alkaline Phosphatase 93 Total Protein 7.4 Albumin 4.5 Globulin 2.9 Albumin/Globulin Ratio 1.6 Amylase 117 Lipase 20 Urine Source Urine Color Urine Turbidity Urine pH Ur Specific [place] Urine Protein Ur Glucose (Stick) Ur Ketones (Stick) Urine Blood Urine Nitrite Urine Bilirubin Urobilinogen Dipstick Urine Leukocytes Urine WBC (Auto) Urine RBC (Auto) U Epithel Cells (Auto) Urine Bacteria (Auto) Urine Test NEGATIVE 03/24/17 12:31 WBC RBC Hgb Hct MCV MCH MCHC RDW Std Deviation Plt Count MPV Immature Gran % (Auto) Neut % (Auto) Lymph % (Auto) [place] % (Auto) Eos % (Auto) Baso % (Auto) Immature Gran # (Auto) Neut # (Auto) Lymph # (Auto) [place] # (Auto) Eos # (Auto) Baso # (Auto) Percent Retic Retic Hgb Equivalent Sodium Potassium Chloride Carbon Dioxide Anion Gap BUN Creatinine Estimated GFR/1.73 m2 BUN/Creatinine Ratio Glucose Calculated Osmolality Calcium Total Bilirubin AST ALT Alkaline Phosphatase Total Protein Albumin Globulin Albumin/Globulin Ratio Amylase Lipase Urine Source CLEAN CATCH Urine Color YELLOW Urine Turbidity CLEAR Urine pH 7.0 Ur Specific [place] 1.012 Urine Protein NEGATIVE Ur Glucose (Stick) NEGATIVE Ur Ketones (Stick) NEGATIVE Urine Blood NEGATIVE Urine Nitrite NEGATIVE Urine Bilirubin NEGATIVE Urobilinogen Dipstick NORMAL Urine Leukocytes NEGATIVE Urine WBC (Auto) <10 Urine RBC (Auto) <10 U Epithel Cells (Auto) <10 Urine Bacteria (Auto) NEGATIVE Urine Test Orders Category Date Time Status Saline Loc DIRECTED Care 03/24/17 10:34 Active NPO Diet 03/24/17 10:34 Active CHEST-PORTABLE [RAD] Stat Exams 03/24/17 10:34 Completed AMYLASE [CHEM] Stat Lab 03/24/17 11:27 Completed BLOOD CULTURE [BLDCUL] Stat Lab 03/24/17 12:29 Results CBC WITH ELECTRONIC DIFF [HEME] Stat Lab 03/24/17 11:27 Completed COMPREHENSIVE METABOLIC PANEL [CHEM] Stat Lab 03/24/17 11:27 Completed LIPASE [CHEM] Stat Lab 03/24/17 11:27 Completed TEST-URINE [PREG] Stat Lab 03/24/17 12:31 Completed RETIC COUNT [HEME] Stat Lab 03/24/17 11:27 Completed UA NIMS W/REFLEX CULT [URINALYSIS] Stat Lab 03/24/17 12:31 Completed URINALYSIS W/POSS RFLX CULT-1 [URINALYSIS] Stat Lab 03/24/17 12:31 Completed 0.9% Sodium Chloride Inj [Ns] 1,000 ml Med 03/24/17 10:34 Discontinued IV 999 mls/hr Acetaminophen [Tylenol] Med 03/24/17 10:38 Discontinued 650 mg PO NOW ONE Hydromorphone [Dilaudid] Med 03/24/17 10:34 Discontinued 1 mg IV NOW ONE Metoclopramide [Reglan] Med 03/24/17 12:32 Discontinued 10 mg IV NOW ONE Ondansetron [Zofran] Med 03/24/17 10:37 Discontinued 4 mg IV NOW ONE Promethazine [Phenergan] Med 03/24/17 12:20 Discontinued 12.5 mg IV NOW ONE Sodium Chloride 0.9% Med 03/24/17 12:20 Discontinued 10 ml INJ NOW ONE Transfer/Admit Order [TRANSFER] Routine Transfer 03/24/17 13:[address] Coles. Will admit pt to hospitalist service. Result Diagrams: 03/24/17 11:27 03/24/17 11:27 - CONSULTS/PCP/HOSPITALIST Notification #1 *Consult/PCP/Hospitalist*: Hospitalist Service Time Discussed: 13:00 Consult Disposition: Admit Departure - Departure Date of Disposition Decision: 03/24/17 Time of Disposition Decision: 12:36 DIAGNOSIS: Sickle cell pain crisis, Fever and chills Intractable nausea and vomiting Qualifiers: Vomiting type: unspecified Qualified Code(s): R11.2 - Nausea with vomiting, unspecified Disposition: ADMITTED INPATIENT 09 Certified Medical Emergency: Emergent Condition: Stable Referrals and Follow-Ups: None,PCP [Primary Care Provider] - - Critical Care Note This patient required my direct & personal management of CC.: No Attestation - Physician/ EDNA Attestation Patient care was provided by Advanced Practice Provider:: Yes Advanced Practice Provider:: Jadon Enamorado Advanced Practice Provider documentation review:: The Mid-level provider documentation, treatment plan and medical decision making was reviewed by the physician who agrees with all treatment and medical decision making by the MLP. The physician spent face to face time with patient:: Yes Advanced Practice Provider documentation review:: The physician spent face to face time with this patient and agrees with all MLP documentation, treatment, and medical decision making by the MLP. See provider notes for further information.
[2017-03-24] MEDS ORDERED: REGLAN IV ONE (12:32)
[2017-03-24 12:41] LABS: URINE CULTURE NEEDED? NO; URINE MICRO REVIEW NEEDED? NO; URINE SOURCE CLEAN CATCH
[2017-03-24 12:45] LABS: BILIRUBIN URINE NEGATIVE (NEGATIVE); BLOOD URINE NEGATIVE (NEGATIVE); COLOR YELLOW; GLUCOSE URINE NEGATIVE (NEGATIVE); LEUKOCYTES URINE NEGATIVE (NEGATIVE); NITRITE URINE NEGATIVE (NEGATIVE); PROTEIN URINE NEGATIVE (NEGATIVE); SP GRAVITY URINE 1.012; TURBIDITY URINE CLEAR (CLEAR); UROBILINOGEN URINE NORMAL (NORMAL)
[2017-03-24 12:47] LABS: UR EPITHELIAL CELLS <10 /HPF (<10); URINE BACTERIA NEGATIVE /HPF; URINE RBC <10 /HPF (<10); URINE WBC <10 /HPF (<10)
--- NOTE | 2017-03-24 12:56 | Diag Imaging Result Doc PS360 ---
EXAM: CHEST-PORTABLE - 03/24/2017 HISTORY: fever TECHNIQUE: Portable chest 1055 COMPARISON: 03/23/2017 FINDINGS: Inspiration is mildly shallow. The lungs appear essentially clear. There is no consolidation, pleural effusion, or pneumothorax identified. Allowing for inspiration and the AP projection, heart size appears upper normal. IMPRESSION: Mildly shallow inspiration. No other evidence of acute disease. Electronically signed by Fernando Arreola 03/24/2017 12:53 PM
[2017-03-24] MEDS ORDERED: ZOFRAN IV PRN (14:14)
[2017-03-24] MEDS ORDERED: TYLENOL PO PRN (14:14)
[2017-03-24] MEDS ORDERED: TORADOL IV PRN (16:06)
[2017-03-24] MEDS: LOVENOX SUBQ SCH (16:09)
[2017-03-24] MEDS ORDERED: SODIUM CHLORIDE 0.9% 10 ML ONE (16:16)
[2017-03-24] MEDS: DILAUDID IV PRN ×2 (16:18→20:39)
[2017-03-24] MEDS: DURAGESIC 12 MICROGM/HR PATCH TD SCH (16:19)
[2017-03-24] MEDS: NS 1,000 ML IV SCH (16:19)
[2017-03-24] MEDS: PHENERGAN IV PRN (16:19)
[2017-03-24] MEDS: SODIUM CHLORIDE 0.9% INJ PRN (16:19)
--- NOTE | 2017-03-24 17:09 | Diag Imaging Result Doc PS360 ---
EXAM: ABDOMEN FLAT/UPRIGHT HISTORY: pain TECHNIQUE: COMPARISON: None. FINDINGS: No free air beneath the diaphragm. No bowel obstruction. A small amount of stool is found throughout the colon. No organomegaly. Mild scoliosis. No abnormal calcifications. IMPRESSION: Mild constipation. Electronically signed by Sahil Solitario 03/24/2017 5:07 PM
[2017-03-24] MEDS: BENADRYL IV PRN (18:32)
--- NOTE | 2017-03-24 19:29 | HISTORY AND PHYSICAL ---
CHIEF COMPLAINT: Chest and back pain per her usual sickle cell pain. HISTORY OF PRESENT ILLNESS: This is a 22-year-old female, well known to our service due to frequent sickle cell attacks who presents with fever, chest pain and back pain for the last 24 hours. Pain is sharp in intensity, nonradiating, focused in her back and chest. She has had associated nausea with occasional emesis. She does report some abdominal discomfort as well. No dysuria, no diarrhea. She had a fever subjectively and then had a fever here of 100.3. Workup in the ER was actually pretty good for her. Her hemoglobin and hematocrit was 9 and 27 which is very high for her. Her reticulocyte count was only 3.6% which is actually fairly good for her, but she did have a little bit of leukocytosis at 13,000. Other workup was negative. She was admitted for sickle cell crisis and fever. PAST MEDICAL HISTORY: 1. Again, sickle cell crisis or sickle cell disease. 2. Chronic pain issues. PAST SURGICAL HISTORY: She has had Port-A-Cath removal. She has had a cholecystectomy. She has had avascular necrosis. Hip surgery. SOCIAL HISTORY: No tobacco or ethanol. ALLERGIES: Latex, meperidine, vancomycin, and morphine. REVIEW OF SYSTEMS: 10 point review of systems reviewed and are all negative. Review of systems otherwise negative times a 10 point review of systems as described. MEDICATIONS: She is on hydroxyurea 500 b.i.d. [place] p.r.n. Folic acid. 12.5/12 mcg of fentanyl. PHYSICAL EXAMINATION: VITAL SIGNS: Blood pressure 102/59, heart rate of 65, respiratory rate of 18, last temperature was 100.3 degrees, but she was afebrile when I was in the room. 100% on room air. GENERAL: A well-developed female in no acute distress. HEAD: Normocephalic, atraumatic. EYES: Pupils equal, round, reactive to light. Extraocular movements were intact. EAR/NOSE/THROAT: She had moist mucous membranes. NECK: Supple. CARDIOVASCULAR: Regular rate and rhythm. No murmurs, gallops, or rubs. PULMONARY: Bilateral breath sounds. Clear to auscultation. GI: Soft, nontender, nondistended. Bowel sounds are positive. LABORATORY DATA: White count 13, hemoglobin and hematocrit 9 and 27. Platelets 271,000. Chemistries look okay. Bilirubin 1.06. ASSESSMENT: A 22-year-old female with sickle cell disease presenting with a sickle cell crisis and a febrile illness. 1. Sickle cell crisis. We will continue to monitor. IV pain medication. IV hydration, oxygen as needed and follow closely. 2. Fever. She has had a history of infected ports before. We will monitor. For the time being, I am holding off on any antibiotics unless there is some issue with persistent fevers. 3. Disposition pending her clinical course. cc: MD Rigo Villela MD
[2017-03-24] MEDS: HYDREA PO SCH (20:39)
[2017-03-25] MEDS: BENADRYL IV PRN ×4 (00:26→18:45)
[2017-03-25] MEDS: DILAUDID IV PRN ×8 (00:26→21:57)
[2017-03-25] MEDS: NS 1,000 ML IV SCH ×4 (00:27→16:45)
[2017-03-25] MEDS: PHENERGAN IV PRN ×4 (03:44→21:56)
[2017-03-25 05:31] LABS: MANUAL DIFF NEEDED? NO
[2017-03-25 05:35] LABS: BASO% 0.3 % (0.0-0.8); EOS# 0.28 X1000 (0.0-0.7); EOS% 2.3 % (0.0-10.0); HEMATOCRIT 24.4 % (37.0-47.0); HEMOGLOBIN 8.1 g/dL (12.0-16.0); IMM GRAN# 0.03 X1000 (0.0-0.04); IMM GRAN% 0.2 % (0.0-0.5); LYMPH# 3.81 X1000 (1.2-3.4); LYMPH% 31.7 % (20.5-51.1); MCH 25.9 PG (27-31); MCHC 33.2 g/dL (33-37); MONO# 0.86 X1000 (0.11-0.59); MONO% 7.2 % (1.7-9.3); MPV 8.4 FL (7.4-10.4); NEUT% 58.3 % (42.2-75.2); PLT 220 X1000 (130-400); RBC 3.13 XMIL (4.2-5.4)
[2017-03-25 05:51] LABS: AGAP 10; ALBUMIN 4.1 g/dL (3.5-5.0); ALKALINE PHOSPHATASE 107 U/L (32-104); BUN 13 mg/dL (8-22); CALCIUM 8.3 mg/dL (8.8-10.2); CHLORIDE 104 mmol/L (98-107); COSMO 279; GOT 20 U/L (10-30); GPT 10 U/L (10-36); POTASSIUM 4.1 mmol/L (3.5-5.1); SODIUM 140 mmol/L (136-145); TCO2 26 mmol/L (25-35); TOTAL BILIRUBIN 0.84 mg/dL (0.20-1.00); TOTAL PROTEIN 6.7 g/dL (6.3-8.3)
[2017-03-25] MEDS: PRILOSEC PO SCH (08:37)
[2017-03-25] MEDS: HYDREA PO SCH ×2 (08:37→21:57)
[2017-03-25] MEDS: FOLIC ACID PO SCH (08:37)
[2017-03-25] MEDS: SODIUM CHLORIDE 0.9% INJ PRN ×3 (09:36→21:57)
[2017-03-25] MEDS: LOVENOX SUBQ SCH (14:42)
--- NOTE | 2017-03-25 16:57 | PROGRESS NOTE ---
DATE: 03/25/2017 SUBJECTIVE: The patient complains of generalized aches and pains. She is afebrile. OBJECTIVE: Vital Signs: Temperature 98 degrees, blood pressure 104/54, heart rate 85, respirations 20, O2 saturations 100% on room air. General: This is a young female, lying in bed, in no acute distress. Head: Normocephalic, atraumatic. Heart: S1, S2. Normal. Regular rate and rhythm. Lungs: Clear to auscultation bilaterally. Abdomen: Positive bowel sounds. Soft, nontender, nondistended. Extremities: No edema. No cyanosis. No calf tenderness. Neurologic: The patient is alert and oriented x3. LABS: White blood cell count 12, hemoglobin 8.1, hematocrit 24, platelets 220. BUN 13, creatinine 0.5, glucose 93, alkaline phosphatase 107, AST 20, ALT 10, albumin 4.1. ASSESSMENT AND PLAN: 1. Sickle cell crisis. Continue on p.r.n. antiemetics, p.r.n. pain medication, intravenous fluids, IV antibiotics and hydroxyurea. We will monitor the patient's reticulocyte count closely. 2. Chronic pain. Continue on the fentanyl patch. 3. Deep vein thrombosis prophylaxis. Continue on Lovenox. cc: Geraldine Napier MD
[2017-03-26] MEDS: NS 1,000 ML IV SCH ×5 (00:43→17:35)
[2017-03-26] MEDS: BENADRYL IV PRN ×4 (00:53→17:41)
[2017-03-26] MEDS: DILAUDID IV PRN ×8 (00:53→22:26)
[2017-03-26] MEDS: SODIUM CHLORIDE 0.9% INJ PRN ×2 (04:07→16:20)
[2017-03-26] MEDS: PHENERGAN IV PRN ×4 (04:07→22:26)
[2017-03-26 06:06] LABS: HEMATOCRIT 24.8 % (37.0-47.0); HEMOGLOBIN 8.1 g/dL (12.0-16.0); MCH 26.2 PG (27-31); MCHC 32.7 g/dL (33-37); MCV 80.3 FL (81-99); MPV 8.6 FL (7.4-10.4); RBC 3.09 XMIL (4.2-5.4)
[2017-03-26 06:22] LABS: AGAP 11; BUN 12 mg/dL (8-22); CHLORIDE 102 mmol/L (98-107); COSMO 278; POTASSIUM 4.1 mmol/L (3.5-5.1); SODIUM 140 mmol/L (136-145); TCO2 27 mmol/L (25-35)
[2017-03-26 07:22] LABS: RETIC% 4.93 % (0.8-2.1); RETIC-HE 22.6 PG (28.2-36.6)
[2017-03-26] MEDS: FOLIC ACID PO SCH (09:47)
[2017-03-26] MEDS: HYDREA PO SCH ×2 (09:47→22:26)
[2017-03-26] MEDS: PRILOSEC PO SCH (09:47)
[2017-03-26] MEDS: DURAGESIC 12 MICROGM/HR PATCH TD SCH (12:00)
[2017-03-26] MEDS ORDERED: DURAGESIC 12 MICROGM/HR PATCH TD SCH (12:00)
[2017-03-26] MEDS: LOVENOX SUBQ SCH (15:33)
--- NOTE | 2017-03-26 17:00 | PROGRESS NOTE ---
DATE: 03/26/2017 SUBJECTIVE: The patient is resting comfortably in bed. She complains of generalized aches and pains. OBJECTIVE: Vital Signs: Temperature 98 degrees, blood pressure 118/61, heart rate 85, respirations 20, O2 saturations 100% on room air. General: This is a young female, lying in bed, in no acute distress. Head: Normocephalic, atraumatic. Heart: S1, S2. Normal. Regular rate and rhythm. Lungs: Clear to auscultation bilaterally. Abdomen: Positive bowel sounds. Soft, nontender, nondistended. Extremities: No edema. No cyanosis. No calf tenderness. Neurologic: The patient is alert and oriented x3. LABS: White blood cell count 12, hemoglobin 8.1, hematocrit 24, platelets 208,000. Reticulocyte count 4.9. Sodium 140, potassium 4.1, chloride 102, CO2 27, BUN 12, creatinine 0.7. ASSESSMENT AND PLAN: 1. Sickle cell crisis. Continue on the current management. The patient's reticulocyte count remains elevated. 2. Leukocytosis. We will add Zosyn. The patient remains afebrile with negative blood cultures. 3. Chronic pain. Continue on the fentanyl patch plus p.r.n. Dilaudid. 4. Deep vein thrombosis prophylaxis. Continue on Lovenox. cc: Geraldine Napier MD
[2017-03-26] MEDS: ZOSYN 3.375 GM/NS 3.375 GM/50 ML IVPB IV SCH ×2 (17:35→23:27)
[2017-03-27] MEDS: BENADRYL IV PRN ×4 (01:33→20:16)
[2017-03-27] MEDS: DILAUDID IV PRN ×8 (01:33→23:30)
[2017-03-27] MEDS: ZOSYN 3.375 GM/NS 3.375 GM/50 ML IVPB IV SCH ×4 (04:39→23:29)
[2017-03-27 05:56] LABS: RETIC% 5.98 % (0.8-2.1)
[2017-03-27 06:09] LABS: HEMATOCRIT 24.3 % (37.0-47.0); HEMOGLOBIN 7.9 g/dL (12.0-16.0); MCH 25.9 PG (27-31); MCHC 32.5 g/dL (33-37); MCV 79.7 FL (81-99); MPV 8.7 FL (7.4-10.4); RBC 3.05 XMIL (4.2-5.4)
[2017-03-27 06:13] LABS: AGAP 10; BUN 11 mg/dL (8-22); CALCIUM 8.8 mg/dL (8.8-10.2); CHLORIDE 102 mmol/L (98-107); COSMO 279; POTASSIUM 4.1 mmol/L (3.5-5.1); SODIUM 140 mmol/L (136-145); TCO2 28 mmol/L (25-35)
[2017-03-27] MEDS: PRILOSEC PO SCH (08:06)
[2017-03-27] MEDS: HYDREA PO SCH ×2 (08:06→20:16)
[2017-03-27] MEDS: FOLIC ACID PO SCH (08:06)
[2017-03-27] MEDS ORDERED: DURAGESIC 12 MICROGM/HR PATCH TD SCH (11:00)
[2017-03-27] MEDS: PHENERGAN IV PRN ×3 (11:07→23:30)
[2017-03-27] MEDS: SODIUM CHLORIDE 0.9% INJ PRN ×2 (11:07→17:24)
[2017-03-27] MEDS: NS 1,000 ML IV SCH ×4 (11:08→17:12)
[2017-03-27] MEDS: LOVENOX SUBQ SCH ×2 (14:02→14:11)
--- NOTE | 2017-03-27 19:51 | PROGRESS NOTE ---
DATE: 03/27/2017 SUBJECTIVE: The patient is resting comfortably in bed. She states that she feels okay. OBJECTIVE: Vital Signs: Temperature 98.9 degrees, blood pressure 119/79, heart rate 92, respirations 14, O2 saturations 99% on room air. General: This is a young female lying in bed in no acute distress. Head: Normocephalic, atraumatic. Heart: S1, S2 normal. Regular rate and rhythm. Lungs: Clear to auscultation bilaterally. No wheezing. No rales. No rhonchi. Abdomen: Positive bowel sounds. Soft, nontender, nondistended. Extremities: No edema. No cyanosis. No calf tenderness. Neurologic: The patient is alert and oriented x3. LABORATORY: White blood cell count 9.8, hemoglobin 7.9, hematocrit 24, platelets 198,000. Reticulocyte count 5.9, potassium 4.1, creatinine 0.6. ASSESSMENT AND PLAN: 1. Sickle cell crisis. Continue on the current management. 2. Leukocytosis. Resolved. Continue on Zosyn. 3. Chronic pain. Continue on the fentanyl patch plus p.r.n. Dilaudid. 4. Deep vein thrombosis prophylaxis. Continue on Lovenox. cc: Geraldine Napier MD
[2017-03-28] MEDS: DILAUDID IV PRN ×8 (02:32→23:47)
[2017-03-28] MEDS: BENADRYL IV PRN ×4 (02:33→20:51)
[2017-03-28] MEDS: NS 1,000 ML IV SCH ×4 (04:41→14:09)
[2017-03-28] MEDS: PHENERGAN IV PRN ×4 (05:42→23:47)
[2017-03-28] MEDS: ZOSYN 3.375 GM/NS 3.375 GM/50 ML IVPB IV SCH ×4 (05:55→22:49)
[2017-03-28] MEDS: PRILOSEC PO SCH (08:38)
[2017-03-28] MEDS: HYDREA PO SCH ×2 (08:38→20:52)
[2017-03-28] MEDS: FOLIC ACID PO SCH (08:38)
[2017-03-28 08:42] LABS: AGAP 11; BUN 11 mg/dL (8-22); CHLORIDE 101 mmol/L (98-107); COSMO 276; POTASSIUM 4.2 mmol/L (3.5-5.1); SODIUM 139 mmol/L (136-145); TCO2 27 mmol/L (25-35)
[2017-03-28 08:49] LABS: HEMATOCRIT 23.2 % (37.0-47.0); HEMOGLOBIN 7.5 g/dL (12.0-16.0); MCH 25.2 PG (27-31); MCHC 32.3 g/dL (33-37); MCV 77.9 FL (81-99); RBC 2.98 XMIL (4.2-5.4); RETIC% 6.7 % (0.8-2.1); RETIC-HE 23.7 PG (28.2-36.6)
[2017-03-28] MEDS: DURAGESIC 12 MICROGM/HR PATCH TD SCH ×2 (10:19→22:53)
[2017-03-28] MEDS: LOVENOX SUBQ SCH (14:07)
[2017-03-28] MEDS: SODIUM CHLORIDE 0.9% INJ PRN ×2 (20:51→23:47)
--- NOTE | 2017-03-29 01:02 | PROGRESS NOTE ---
DATE: 03/29/2017 SUBJECTIVE: The patient is resting comfortably. She does complain of some mild chest pain and pain in her joints. OBJECTIVE: Vital signs: Temperature 98.6, blood pressure 142/67, heart rate 82, respirations 16, O2 saturation 98% on room air. General: This is a young female lying in bed in no acute distress. Head: Normocephalic, atraumatic. Heart: S1, S2 normal. Regular rate and rhythm. Lungs: Equal air entry bilaterally. No crackles. No rales. Abdomen: Positive bowel sounds. Soft, nontender, nondistended. Extremities: No edema. No cyanosis. No calf tenderness. Neurologic: The patient is alert and oriented x3. LABORATORY DATA: White blood cell count 10, hemoglobin 7.5, hematocrit 23, platelets 190. Reticulocyte count 6.7. Sodium 139, potassium 4.2, chloride 101, CO2 of 27, BUN 11, creatinine 0.6. ASSESSMENT AND PLAN: 1. Sickle cell crisis. The patient's reticulocyte count continues to rise. Will consult Hematology for further recommendations. Continue on the current medications. 2. Leukocytosis, resolved. 3. Chronic pain. Continue on the current pain management regimen. 4. DVT prophylaxis. Continue on Lovenox. cc: Geraldine Napier MD
[2017-03-29] MEDS: BENADRYL IV PRN ×4 (04:13→21:53)
[2017-03-29] MEDS: ZOSYN 3.375 GM/NS 3.375 GM/50 ML IVPB IV SCH ×4 (04:13→23:23)
[2017-03-29] MEDS: DILAUDID IV PRN ×6 (04:13→21:53)
[2017-03-29 06:25] LABS: HEMATOCRIT 22.4 % (37.0-47.0); HEMOGLOBIN 7.5 g/dL (12.0-16.0); MCH 26.4 PG (27-31); MCHC 33.5 g/dL (33-37); MCV 78.9 FL (81-99); MPV 8.3 FL (7.4-10.4); RBC 2.84 XMIL (4.2-5.4); RETIC% 8.45 % (0.8-2.1)
[2017-03-29 06:58] LABS: AGAP 12; BUN 12 mg/dL (8-22); CALCIUM 8.5 mg/dL (8.8-10.2); CHLORIDE 101 mmol/L (98-107); COSMO 273; POTASSIUM 4.1 mmol/L (3.5-5.1); SODIUM 137 mmol/L (136-145); TCO2 24 mmol/L (25-35)
[2017-03-29 07:18] LABS: IRON SATURATION 52 %; TIBC 238 ug/dL; TOTAL IRON 124 ug/dL (49-151); UNBOUND IRON 114 ug/dL (112-346)
[2017-03-29 07:37] LABS: FERRITIN 76 ng/mL (13-150)
[2017-03-29] MEDS: PHENERGAN IV PRN ×3 (07:59→21:53)
[2017-03-29] MEDS: PRILOSEC PO SCH (08:01)
[2017-03-29] MEDS: FOLIC ACID PO SCH (08:01)
[2017-03-29] MEDS: NS 1,000 ML IV SCH ×3 (10:03→18:53)
[2017-03-29] MEDS: HYDREA PO SCH ×2 (10:06→20:47)
[2017-03-29] MEDS ORDERED: DURAGESIC 12 MICROGM/HR PATCH TD SCH (11:15)
--- NOTE | 2017-03-29 15:10 | CONSULTATION ---
DATE OF CONSULTATION: 03/28/2017 CHIEF COMPLAINT: Sickle cell crisis. HISTORY OF PRESENT ILLNESS: Ms. Loyda Henley is a 22-year-old female who is well known to Dr. Salmon with a history of sickle cell anemia and frequent admissions to [facility] secondary to sickle cell crisis. The patient reports that she began having a fever with chest pain and back pain 24 hours prior to presenting to [facility]. The patient also reports that she had nausea with occasional vomiting. The patient did reported fever as well and upon presentation had a temperature of 100.3 degrees. Upon presentation, her leukocyte count was 3.6% and white blood cell count was 13,000. The patient was admitted for sickle cell crisis and fever. PAST MEDICAL HISTORY: 1. Sickle cell anemia. 2. Chronic pain. PAST SURGICAL HISTORY: 1. Port-A-Cath placement and removal. 2. Cholecystectomy. 3. Significant for sickle cell anemia. SOCIAL HISTORY: The patient does not use tobacco, alcohol, or illicit drugs. MEDICATIONS ON ADMISSION: 1. Hydroxyurea 500 mg b.i.d. 2. [place]. 3. Folic acid. 4. Fentanyl patch. ALLERGIES: Are to latex, meperidine, vancomycin, and morphine. REVIEW OF SYSTEMS: A 14 point review of systems was obtained and is negative except for as mentioned in HPI. PHYSICAL EXAMINATION: General: Ms. Henley is a very pleasant, 22-year-old female, lying supine in bed, in slight distress. Vital signs: Temperature 98.5 degrees, blood pressure 117/59, heart rate 86, respirations 18, O2 saturation is 100% on room air. HEENT: Normocephalic, atraumatic. Mucous membranes are pale and moist. Sclerae is anicteric. Extraocular movements intact. Neck: Supple. Lungs: Clear to auscultation bilaterally. Chest expansion is equal bilaterally. CV: S1, S2 is heard without murmur, rub, or gallop. Abdomen: Soft, nondistended, nontender. Bowel sounds are positive in all quadrants. No rebound or guarding noted. Extremities: Without clubbing, cyanosis, or edema. Dermatologic: No rashes, bruises, or lesions. Neurologic: The patient is awake, alert, and oriented x3. She has no focal deficit at this time. LABORATORY DATA: Hemoglobin is 7.5, hematocrit 23.2, white blood cell count is 10.25, platelets 190,000. Sodium 139, potassium 4.2, chloride 101, CO2 is 27, BUN 11, creatinine 0.6, and glucose is 82, calcium is 9.0. IMAGING STUDIES: Abdominal x-ray reveals mild constipation. Chest x-ray reveals mildly shallow inspiration with no other evidence of acute disease. ASSESSMENT AND PLAN: 1. Sickle cell crisis in a patient with a history of sickle cell anemia and frequent presentation to [facility] secondary to crisis. The patient will continue on IV pain medication as ordered, as well as IV hydration. The patient was offered a blood transfusion and is requesting that she not be transfused at this time secondary to pain that follows transfusion. We will hold off for now and re-evaluate CBC tomorrow. 2. Fever. Resolved at this time. Continue to monitor vital signs. 3. Chronic pain. Again, the patient will continue on IV pain medication as ordered. 4. We will follow along with you and make further recommendations pending outcomes. Again, this is Sheree Arellano, Nurse Practitioner dictating a consult on [facility] for Dr. Mohini Alexander. The above reflects the history, exam, assessment, and plan of Dr. Alexander. Dictated by CORRINA Ramirez for Mohini Alexander MD cc: CORRINA Ramirez MD I have seen and examined the patient and agree with the above A/P. Mohini CARMEN
[2017-03-29] MEDS: LOVENOX SUBQ SCH (15:28)
--- NOTE | 2017-03-29 15:46 | PROGRESS NOTE ---
DATE: 03/29/2017 CHIEF COMPLAINT: Chest pain. SUBJECTIVE: Ms Henley is a 22-year-old female well known to us with a history of sickle cell anemia who is admitted in sickle cell crisis. Reticulocyte count today is 8.45. Hemoglobin is 7.5. The patient does report that she has continued chest pain. Additionally she is reporting insomnia. OBJECTIVE: General: Ms. Henley is a 22-year-old female lying supine in bed in no immediate distress. Vital signs: Temperature 98.8 degrees, blood pressure 113/74, heart rate 96, respirations 16, O2 saturation 99% on room air. HEENT: Is normocephalic, atraumatic. Mucous membranes are pale and moist. Sclerae is anicteric. Extraocular movements intact. Neck: Is supple. Lungs: Are clear to auscultation bilaterally. Chest expansion is equal bilaterally. CV: S1, S2 is heard without murmur, rub or gallop. Abdomen: Soft, nondistended, nontender. Bowel sounds positive all quadrants. No rebound or guarding noted. Extremities: Without clubbing, cyanosis or edema. Dermatologic: No rashes, bruises or lesions. Neurologic: The patient is awake, alert, oriented x3. She has no focal deficit at this time. LABORATORY DATA: Hemoglobin is 7.5, hematocrit 22.4, reticulocyte count is 8.45. ASSESSMENT AND PLAN: 1. Sickle cell crisis. We will continue to monitor the patient's reticulocyte count as well as her hemoglobin and hematocrit. Will provide IV pain medication as ordered. We agree with IV hydration as ordered. 2. Fever resolved at this time. The patient does have a history of infected port. We will continue to monitor. 3. Anemia. Hemoglobin is currently 7.5 with hematocrit of 22.4. We will hold transfusion at this time at patient requests not to be transfused secondary to posttransfusion pain. 4. We will follow along with you and make further recommendations pending outcomes. The above reflects the history, exam, assessment, plan of Dr. Alexander. Dictated by CORRINA Ramirez for Mohini Alexander MD cc: CORRINA Ramirez MD I have seen and examined the patient and agree with the above A/P. Mohini CARMEN
[2017-03-29] MEDS: SODIUM CHLORIDE 0.9% INJ PRN (16:06)
--- NOTE | 2017-03-29 16:32 | PROGRESS NOTE ---
DATE: 03/29/2017 SUBJECTIVE: The patient is resting comfortably in bed. She complains of mild chest pain. OBJECTIVE: Vital Signs: Temperature 98 degrees, blood pressure 120/77, heart rate 107, respiration is 14, O2 saturations 100% on room air. General: This is a young female, lying in bed, in no acute distress. Head: Normocephalic, atraumatic. Heart: S1, S2. Normal. Regular rate and rhythm. Lungs: Clear to auscultation bilaterally. No wheezes, no rales. No rhonchi. Abdomen: Positive bowel sounds. Soft, nontender, nondistended. Extremities: No edema. No cyanosis. Neurologic: The patient is alert and oriented x3. LABS: Retake count 8.4, hemoglobin 7.5, hematocrit 22, potassium 4.1, creatinine 0.7. ASSESSMENT AND PLAN: 1. Sickle cell crisis. Continue on the current medications. 2. Chronic pain. Continue on the fentanyl patch plus p.r.n. Dilaudid. 3. Deep venous thrombosis prophylaxis. Continue on Lovenox. 4. Folate deficiency. Continue on folic acid replacement. cc: Geraldine Napier MD
[2017-03-29] MEDS: AMBIEN PO SCH (20:47)
[2017-03-29] MEDS ORDERED: LUNESTA PO SCH (21:00)
[2017-03-30] MEDS: PHENERGAN IV PRN ×5 (01:05→20:58)
[2017-03-30] MEDS: DILAUDID IV PRN ×7 (01:05→20:58)
[2017-03-30] MEDS: ZOSYN 3.375 GM/NS 3.375 GM/50 ML IVPB IV SCH ×4 (04:19→22:04)
[2017-03-30] MEDS: BENADRYL IV PRN ×4 (04:19→20:58)
[2017-03-30 05:42] LABS: HEMATOCRIT 21.7 % (37.0-47.0); MCH 25.6 PG (27-31); MCHC 32.3 g/dL (33-37); MCV 79.5 FL (81-99); MPV 8.2 FL (7.4-10.4); RBC 2.73 XMIL (4.2-5.4); RETIC% 8.52 % (0.8-2.1); RETIC-HE 23.3 PG (28.2-36.6)
[2017-03-30] MEDS: NS 1,000 ML IV SCH ×3 (06:22→13:52)
[2017-03-30] MEDS: HYDREA PO SCH ×2 (10:59→20:58)
[2017-03-30] MEDS: FOLIC ACID PO SCH (11:00)
[2017-03-30] MEDS: PRILOSEC PO SCH (11:00)
[2017-03-30] MEDS ORDERED: DURAGESIC 12 MICROGM/HR PATCH TD SCH (12:30)
[2017-03-30] MEDS: LOVENOX SUBQ SCH (13:52)
--- NOTE | 2017-03-30 16:31 | PROGRESS NOTE ---
DATE: 03/30/2017 SUBJECTIVE: The patient complains of chest pain and joint pain. She is afebrile. OBJECTIVE: Vital Signs: Temperature 98 degrees, blood pressure 120/56, heart rate 103, respirations 18, O2 saturations 96% on room air. General: This is a young female lying in bed in no acute distress. Head: Normocephalic, atraumatic. Heart: S1, S2. Normal. Regular rate and rhythm. Lungs: Equal air entry bilaterally, no crackles, no rales. Abdomen: Positive bowel sounds. Soft, nontender, nondistended. Extremities: No edema. No cyanosis. Neurologic: The patient is alert oriented x3. LABS: White blood cell count 10, hemoglobin 7, hematocrit 21, platelets 158,000, reticulocyte count 8.5. ASSESSMENT AND PLAN: 1. Sickle cell crisis. The patient's reticulocyte count continues to rise. Today it is 8.5. Will continue on the current medications as ordered. Hematology is following. 2. Anemia. The patient's hemoglobin and hematocrit has decreased today. Will defer to the deliverer food regarding transfusion. 3. Chronic pain. Continue on fentanyl flat patch plus p.r.n. Dilaudid for breakthrough pain. 4. Deep vein thrombosis prophylaxis. Continue on Lovenox. cc: Geraldine Napier MD
[2017-03-30] MEDS: AMBIEN PO SCH (20:58)
[2017-03-31] MEDS: DILAUDID IV PRN ×8 (02:03→23:44)
[2017-03-31] MEDS: BENADRYL IV PRN ×4 (02:03→20:33)
[2017-03-31] MEDS: PHENERGAN IV PRN ×4 (02:04→20:33)
[2017-03-31] MEDS: ZOSYN 3.375 GM/NS 3.375 GM/50 ML IVPB IV SCH ×4 (03:52→23:16)
[2017-03-31 06:24] LABS: HEMATOCRIT 20.7 % (37.0-47.0); HEMOGLOBIN 6.9 g/dL (12.0-16.0); MCH 26.6 PG (27-31); MCHC 33.3 g/dL (33-37); MCV 79.9 FL (81-99); RBC 2.59 XMIL (4.2-5.4)
[2017-03-31 06:33] LABS: AGAP 12; BUN 11 mg/dL (8-22); CALCIUM 9.1 mg/dL (8.8-10.2); CHLORIDE 105 mmol/L (98-107); COSMO 280; POTASSIUM 3.8 mmol/L (3.5-5.1); SODIUM 141 mmol/L (136-145); TCO2 24 mmol/L (25-35)
[2017-03-31] MEDS: FOLIC ACID PO SCH (09:53)
[2017-03-31] MEDS: PRILOSEC PO SCH (09:53)
[2017-03-31] MEDS: HYDREA PO SCH ×2 (09:53→20:34)
[2017-03-31] MEDS: NS 1,000 ML IV SCH ×2 (10:05→14:39)
[2017-03-31] MEDS: LOVENOX SUBQ SCH (14:44)
--- NOTE | 2017-03-31 16:53 | PROGRESS NOTE ---
DATE: 03/31/2017 SUBJECTIVE: The patient is resting comfortably in bed. She complains of chest pain, but denies having any shortness of breath. OBJECTIVE: Vital Signs: Temperature 98, blood pressure 118/60, heart rate 97, respirations 16, O2 saturation is 100% on room air. General: This is a young female, lying in bed, in no acute distress. HEENT: Head is normocephalic, atraumatic. Heart: S1, S2. Normal. Regular rate and rhythm. Lungs: Clear to auscultation bilaterally. No wheezes, no rales, no rhonchi. Abdomen: Positive bowel sounds. Soft. No tenderness. Extremities: No edema. No cyanosis. Neurologic: The patient is alert and oriented x3. LABORATORY STUDIES: White blood cell count 11, hemoglobin 6.9, hematocrit 20, platelets 154,000. Sodium 141, potassium 3.8, chloride 105, CO2 24, BUN 11, creatinine 0.6, glucose 85. ASSESSMENT AND PLAN: 1. Sickle cell crisis. The patient's hemoglobin and hematocrit are a little bit lower today. We will transfuse the patient with 1 unit of packed red blood cells today. Continue on the current medications. 2. Leukocytosis. The patient's white blood cell count is slightly elevated today. Continue on the current antibiotics. The patient's cultures remain negative. 3. Deep vein thrombosis prophylaxis. Continue on Lovenox. cc: Geraldine Napier MD
[2017-03-31] MEDS: AMBIEN PO SCH (20:34)
[2017-04-01] MEDS: DURAGESIC 12 MICROGM/HR PATCH TD SCH (01:42)
[2017-04-01] MEDS: DILAUDID IV PRN ×7 (02:36→21:44)
[2017-04-01] MEDS: BENADRYL IV PRN ×4 (02:37→18:38)
[2017-04-01] MEDS: PHENERGAN IV PRN ×4 (02:37→18:38)
[2017-04-01 05:22] LABS: HEMATOCRIT 25.6 % (37.0-47.0); HEMOGLOBIN 8.5 g/dL (12.0-16.0); MCH 26.7 PG (27-31); MCHC 33.2 g/dL (33-37); MCV 80.5 FL (81-99); MPV 8.3 FL (7.4-10.4); RBC 3.18 XMIL (4.2-5.4); RETIC% 9.02 % (0.8-2.1); RETIC-HE 25.1 PG (28.2-36.6)
[2017-04-01] MEDS: ZOSYN 3.375 GM/NS 3.375 GM/50 ML IVPB IV SCH ×5 (06:10→23:20)
[2017-04-01] MEDS: NS 1,000 ML IV SCH ×2 (06:16→17:43)
--- NOTE | 2017-04-01 07:47 | Diag Imaging Result Doc PS360 ---
EXAM: CHEST-2 VIEWS HISTORY: shortness of breath/leukocytosis TECHNIQUE: COMPARISON: 03/24/2017 FINDINGS: The lungs are well expanded. The heart is not enlarged. The vessels are not distended. There are no infiltrates. No pleural effusions. IMPRESSION: No acute abnormality. Electronically signed by Sahil Solitario 04/01/2017 7:44 AM
[2017-04-01] MEDS: FOLIC ACID PO SCH (10:43)
[2017-04-01] MEDS: PRILOSEC PO SCH (10:43)
[2017-04-01] MEDS: HYDREA PO SCH ×2 (10:43→21:44)
[2017-04-01] MEDS: LOVENOX SUBQ SCH (17:45)
--- NOTE | 2017-04-01 17:53 | PROGRESS NOTE ---
DATE: 04/01/2017 SUBJECTIVE: The patient is resting comfortably in bed. She complains of pain in her joints. OBJECTIVE: Vital Signs: Temperature 98.7 degrees, blood pressure 115/57, heart rate 97, respirations 14, O2 saturations 98% on room air. General: This is a young female lying in bed, in no acute distress. Head: Normocephalic, atraumatic. Heart: S1, S2. Normal. Regular rate and rhythm. Lungs: Clear to auscultation bilaterally. Abdomen: Positive bowel sounds. Soft, nontender, nondistended. Extremities: No edema. No cyanosis. No calf tenderness. Neurologic: The patient is alert and oriented x3. LABORATORY: White blood cell count 11.9, hemoglobin 8.5, hematocrit 25, platelets 137,000. ASSESSMENT AND PLAN: 1. Sickle cell crisis. The patient's reticulocyte count remains elevated. Recommendations as per the fire sprinkler service technician. Continue on the current medications. 2. Leukocytosis. A 2 view chest x-ray was done today which shows no acute abnormality. The patient remains afebrile. We will continue to monitor the white count closely. The patient is on Zosyn. 3. Deep vein thrombosis prophylaxis. Continue on Lovenox. cc: Geraldine Napier MD
[2017-04-01] MEDS: AMBIEN PO SCH (21:44)
[2017-04-02] MEDS: PHENERGAN IV PRN ×4 (00:54→21:30)
[2017-04-02] MEDS: DILAUDID IV PRN ×8 (00:54→21:30)
[2017-04-02] MEDS: BENADRYL IV PRN ×4 (00:54→18:28)
[2017-04-02] MEDS: NS 1,000 ML IV SCH ×2 (03:39→06:17)
[2017-04-02] MEDS: ZOSYN 3.375 GM/NS 3.375 GM/50 ML IVPB IV SCH ×5 (04:43→23:30)
[2017-04-02 05:55] LABS: HEMATOCRIT 24.6 % (37.0-47.0); HEMOGLOBIN 8.3 g/dL (12.0-16.0); MCH 27.1 PG (27-31); MCHC 33.7 g/dL (33-37); MCV 80.4 FL (81-99); MPV 8.1 FL (7.4-10.4); RBC 3.06 XMIL (4.2-5.4)
[2017-04-02 05:59] LABS: RETIC% 8.64 % (0.8-2.1); RETIC-HE 23.4 PG (28.2-36.6)
[2017-04-02 06:12] LABS: AGAP 13; BUN 12 mg/dL (8-22); CALCIUM 8.9 mg/dL (8.8-10.2); CHLORIDE 99 mmol/L (98-107); COSMO 274; POTASSIUM 3.8 mmol/L (3.5-5.1); SODIUM 137 mmol/L (136-145); TCO2 25 mmol/L (25-35)
[2017-04-02] MEDS: FOLIC ACID PO SCH (12:13)
[2017-04-02] MEDS: PRILOSEC PO SCH (12:14)
[2017-04-02] MEDS: HYDREA PO SCH ×2 (12:14→21:30)
[2017-04-02] MEDS: DURAGESIC 12 MICROGM/HR PATCH TD SCH (14:36)
[2017-04-02] MEDS: LOVENOX SUBQ SCH (14:36)
[2017-04-02] MEDS: SODIUM CHLORIDE 0.9% INJ PRN ×2 (16:33→21:30)
[2017-04-02] MEDS: AMBIEN PO SCH (23:30)
[2017-04-03] MEDS: DILAUDID IV PRN ×7 (01:51→21:16)
[2017-04-03] MEDS: PHENERGAN IV PRN ×4 (01:52→18:10)
[2017-04-03] MEDS: SODIUM CHLORIDE 0.9% INJ PRN ×4 (01:52→18:13)
[2017-04-03] MEDS: NS 1,000 ML IV SCH ×3 (01:53→15:07)
--- NOTE | 2017-04-03 03:46 | PROGRESS NOTE ---
DATE: 04/02/2017 SUBJECTIVE: The patient is resting comfortably in bed. She does complain of joint pain. OBJECTIVE: Vital Signs: Temperature 98.6 degrees, blood pressure 132/79, heart rate 79, respirations 16, O2 saturations 100% on room air. General: This is a young female lying in bed in no acute distress. Head: Normocephalic, atraumatic. Heart: S1, S2. Normal. Regular rate and rhythm. Lungs: Clear to auscultation bilaterally. No crackles. No rales. Abdomen: Positive bowel sounds. Soft, nontender, nondistended. Extremities: No edema. No cyanosis. Neurologic: The patient is alert and oriented x3. LABS: White blood cell count 10, hemoglobin 8.3, hematocrit 24, platelets 145,000, BUN 12, creatinine 0.5, glucose 110. ASSESSMENT AND PLAN: 1. Sickle cell crisis. Continue on the current medications. Further management as per the lens edger. 2. Leukocytosis. Improving. Continue on IV Zosyn. 3. Deep vein thrombosis prophylaxis. Continue on Lovenox. cc: Geraldine Napier MD
[2017-04-03] MEDS: ZOSYN 3.375 GM/NS 3.375 GM/50 ML IVPB IV SCH ×4 (05:25→23:06)
[2017-04-03 06:02] LABS: HEMOGLOBIN 8.6 g/dL (12.0-16.0); MCH 27.6 PG (27-31); MCHC 33.1 g/dL (33-37); MCV 83.3 FL (81-99); MPV 8.4 FL (7.4-10.4); RBC 3.12 XMIL (4.2-5.4)
[2017-04-03 06:19] LABS: RETIC% 8.85 % (0.8-2.1); RETIC-HE 23.3 PG (28.2-36.6)
[2017-04-03 06:31] LABS: AGAP 13; BUN 12 mg/dL (8-22); CALCIUM 8.8 mg/dL (8.8-10.2); CHLORIDE 104 mmol/L (98-107); COSMO 281; POTASSIUM 4.4 mmol/L (3.5-5.1); SODIUM 141 mmol/L (136-145); TCO2 24 mmol/L (25-35)
[2017-04-03] MEDS: BENADRYL IV PRN ×3 (09:00→21:16)
[2017-04-03] MEDS: HYDREA PO SCH ×2 (11:52→21:16)
[2017-04-03] MEDS: FOLIC ACID PO SCH (11:52)
[2017-04-03] MEDS: PRILOSEC PO SCH (11:52)
--- NOTE | 2017-04-03 14:26 | PROGRESS NOTE ---
DATE: 04/03/2017 SUBJECTIVE: The patient complains of joint pain. She denies having chest pain. OBJECTIVE: Vital Signs: Temperature 98.1 degrees, blood pressure 129/65, heart rate 81, respirations 16, O2 saturations 100% on room air. General: This is a young female, lying in bed, in no acute distress. Head: Normocephalic, atraumatic. Heart: S1, S2. Normal. Regular rate and rhythm. Lungs: Clear to auscultation bilaterally. No wheezes, no rales. No rhonchi. Abdomen: Positive bowel sounds. Soft, nontender, nondistended. Extremities: No edema. No cyanosis. No calf tenderness. Neurologic: The patient is alert and oriented x3. LABS: White blood cell count 10.8, hemoglobin 8.6, hematocrit 26, platelets 141,000. Sodium 141, potassium 4.4, chloride 104, CO2 24, BUN 12, creatinine 0.5. Glucose 90. Calcium 8.8. ASSESSMENT AND PLAN: 1. Sickle cell crisis. Continue on IV fluids, IV antiemetics and IV pain medication. Hematology is following. 2. Leukocytosis. Unchanged. The patient is afebrile and her cultures remain negative. We will continue to monitor. 3. Chronic pain. Continue on the fentanyl patch plus p.r.n. Dilaudid. 4. Deep vein thrombosis prophylaxis. Continue on Lovenox. cc: Geraldine Napier MD
[2017-04-03] MEDS: LOVENOX SUBQ SCH (15:43)
[2017-04-03] MEDS: AMBIEN PO SCH (23:06)
[2017-04-04] MEDS: SODIUM CHLORIDE 0.9% INJ PRN ×2 (00:20→07:51)
[2017-04-04] MEDS: PHENERGAN IV PRN ×2 (00:20→07:51)
[2017-04-04] MEDS: DILAUDID IV PRN ×3 (00:21→07:51)
[2017-04-04] MEDS: DURAGESIC 12 MICROGM/HR PATCH TD SCH (00:53)
[2017-04-04] MEDS: NS 1,000 ML IV SCH ×2 (03:19→04:27)
[2017-04-04] MEDS: BENADRYL IV PRN ×2 (04:28→10:55)
[2017-04-04] MEDS: ZOSYN 3.375 GM/NS 3.375 GM/50 ML IVPB IV SCH (04:28)
[2017-04-04 05:38] VITALS: BP 130/68
[2017-04-04 06:28] LABS: AGAP 10; BUN 10 mg/dL (8-22); CHLORIDE 102 mmol/L (98-107); COSMO 270; POTASSIUM 4.1 mmol/L (3.5-5.1); SODIUM 136 mmol/L (136-145); TCO2 24 mmol/L (25-35)
[2017-04-04 06:42] LABS: HEMATOCRIT 25.1 % (37.0-47.0); HEMOGLOBIN 8.3 g/dL (12.0-16.0); MCH 27.2 PG (27-31); MCHC 33.1 g/dL (33-37); MCV 82.3 FL (81-99); MPV 8.5 FL (7.4-10.4); RBC 3.05 XMIL (4.2-5.4)
[2017-04-04 07:08] LABS: RETIC% 7.28 % (0.8-2.1); RETIC-HE 25.2 PG (28.2-36.6)
[2017-04-04] MEDS ORDERED: DILAUDID IV PRN (08:09)
[2017-04-04] MEDS: HYDREA PO SCH (10:55)
[2017-04-04] MEDS: PRILOSEC PO SCH (10:55)
[2017-04-04] MEDS: FOLIC ACID PO SCH (10:55)
--- NOTE | 2017-04-04 15:04 | PROGRESS NOTE ---
DATE: 04/04/2017 SUBJECTIVE: This patient is still complaining of joint pain, this patient has been here multiple times complaining of pain in different parts of the body. I do believe that this patient is trying to get more pain medication for us. She denies any chest pain today. She told me that she scared to go home because at this moment she started having her menstrual period and every time she has a menstrual period she will have again pain. She has been hospitalized for 11 days with basically a lot of pain medication. I have decreased the dose of Dilaudid. I have stopped her Phenergan. I will stop the Ambien and I will stop also the Benadryl. I do not think she needs all of this and probably tomorrow we will send this patient home with a followup by her line up machine operator. Also she needs to go to a pain clinic for pain medication. Like I said before, I do believe that this patient wants to stay here in the hospital just for the pain medication. OBJECTIVE: Vital Signs: Temperature 97.6 degrees, pulse 93, respiratory rate 16, blood pressure 130/68, oxygen saturation 100% on room air. HEENT: Head normocephalic. No trauma. PERRLA. Skin: Pale. Neck: Supple. No JVD. No masses. Central trachea. Chest: Clear to auscultation. No wheezing. No rales. Abdomen: Soft, nontender, nondistended. Extremities: No edema. No clubbing. No cyanosis. Neurological: The patient is alert and oriented x3. LABORATORY: WBC 10.5, hemoglobin 8.3, hematocrit 25.1, platelets 143,000. Sodium 136, potassium 4.1, chloride 102, bicarbonate 24, BUN 10, creatinine 0.5. Glucose 87, calcium 9. Reticulocyte 7.2. ASSESSMENT AND PLAN: 1. Sickle cell crisis. I will stop most of her medications and I will decrease the dose of Dilaudid. I do believe this patient is here just for the pain medication. Hopefully I will send this patient home tomorrow. She is still complaining of joint pain. 2. Leukocytosis. Today the leukocyte count is normal. We will continue to monitor. 3. Chronic pain. She has been with the fentanyl patch and p.r.n. Dilaudid as an outpatient as well, and also oral pain medication. 4. Deep vein thrombosis prophylaxis. Continue with Lovenox. This patient has been here 11 days. She has a blood culture done on 03/24/2017 that has been negative. I will stop the antibiotics. I will continue with IV fluids. I will stop the Ambien, Benadryl and Phenergan and I will decrease the dose of Dilaudid. Hopefully tomorrow we will send this patient home. cc: Eros Redmond MD
--- NOTE | 2017-04-05 13:33 | DISCHARGE SUMMARY ---
ADMISSION DATE: 03/24/2017 DISCHARGE DATE: 04/04/2017 CONSULTATION: Dr. Mohini Alexander with Hematology. PERTINENT PROCEDURES: 1. Abdominal x-ray that showed mild constipation. 2. Chest x-ray showed mildly shallow inspiration. No other acute disease. A follow-up chest x- ray showed no acute abnormality. DISCHARGE DIAGNOSES: 1. Sickle cell crisis. Followed by Hematology. Improved. 2. Leukocytosis, improved. 3. Chronic pain. Patient will continue on her home fentanyl patch as well as other home medications. 4. Fever, resolved. Blood cultures have remained negative. The patient has been afebrile for several days now. HOSPITAL COURSE: Ms. Henley is a 22-year-old female, well known to our service for sickle cell crisis. She presented to the ED with persistent fever, chest pain, back pain, for 24 hours. Pain was sharp in intensity, nonradiating, focused in her back and chest associated with nausea and occasional emesis. She reported abdominal discomfort as well. No dysuria and no diarrhea. Subjective fevers. Workup in the ER was actually pretty good for her. Her hemoglobin and hematocrit was 9 and 27, which is very high for her. Her reticulocyte count was only 3.6% which was fairly good for her, but she did have a bit of leukocytosis which was 13,000. Other workup was negative. She was admitted for sickle cell crisis and fever. She was given IV pain medicine, IV hydration, and supplemental O2. She does have a history of an infected port. Blood cultures were obtained. Hematology was consulted to follow along in her care. She is followed by Dr. Rigo Salmon. Her hemoglobin and hematocrit did drop to 7 and 22, however, they held off on transfusion at the patient's request. The patient has been afebrile. Her leukocytosis has resolved. Her blood cultures have remained negative. She is being discharged home today. VITAL SIGNS: Temperature is 97.6 degrees, heart rate 93, respirations 16, blood pressure 130/68, O2 is 100% on room air. DISCHARGE DIET: Regular. DISCHARGE MEDICATIONS: As per Dr. Lindquist: 1. Fentanyl patch 12 mcg per hour. 2. [place] patch 12 mcg/hour q. day 72 hours. 3. Folic acid 1 mg p.o. daily. 4. [place] 10 1 each p.o. q.6 hours p.r.n. 5. Hydroxyurea 500 mg p.o. b.i.d. FOLLOWUP: The patient is being discharged home with self-care. She will follow up with Dr. Salmon on 04/17/2017 at 9:30 a.m. She can return to the ED for any worsening of symptoms. Discharge Time: 30 minutes Dictated by CORRINA Shetty for Eros Redmond MD cc: Eros Redmond MD
== END 2017-04-04 13:34 | disposition home or self-care (01) ==
LOC: ED 10:12 → 4N 14:00 → SUATTDRO 14:00 → 4N 04-02 17:04
PROVIDERS: ATTEND Internal Medicine

== ENCOUNTER 2017-04-15 07:52 | Inpatient (IN) ==
[2017-04-15] MEDS ORDERED: ZOFRAN IV ONE (08:27)
[2017-04-15] MEDS ORDERED: NS 1,000 ML IV ONE (08:27)
[2017-04-15] MEDS ORDERED: DILAUDID IV ONE ×2 (08:27→12:33)
[2017-04-15 09:58] LABS: BASO% 0.2 % (0.0-0.8); EOS# 0.15 X1000 (0.0-0.7); HEMATOCRIT 29.1 % (37.0-47.0); HEMOGLOBIN 9.6 g/dL (12.0-16.0); IMM GRAN# 0.03 X1000 (0.0-0.04); IMM GRAN% 0.2 % (0.0-0.5); LYMPH# 1.82 X1000 (1.2-3.4); LYMPH% 12.2 % (20.5-51.1); MANUAL DIFF NEEDED? NO; MCH 25.9 PG (27-31); MCV 78.6 FL (81-99); MONO# 0.59 X1000 (0.11-0.59); MPV 8.4 FL (7.4-10.4); NEUT% 82.4 % (42.2-75.2); PLT 291 X1000 (130-400); RETIC% 9.04 % (0.8-2.1); RETIC-HE 24.9 PG (28.2-36.6)
[2017-04-15 10:36] LABS: AGAP 12; ALBUMIN 4.7 g/dL (3.5-5.0); ALKALINE PHOSPHATASE 110 U/L (32-104); BUN 12 mg/dL (8-22); CALCIUM 9.8 mg/dL (8.8-10.2); CHLORIDE 100 mmol/L (98-107); COSMO 276; GOT 26 U/L (10-30); GPT 14 U/L (10-36); POTASSIUM 4.2 mmol/L (3.5-5.1); SODIUM 138 mmol/L (136-145); TCO2 26 mmol/L (25-35); TOTAL BILIRUBIN 1.26 mg/dL (0.20-1.00); TOTAL PROTEIN 8.4 g/dL (6.3-8.3)
[2017-04-15] MEDS ORDERED: ROCEPHIN 1 GM/NS 1 GM/50 ML IVPB IV ONE (10:54)
--- NOTE | 2017-04-15 11:13 | Diag Imaging Result Doc PS360 ---
EXAM: CHEST-PORTABLE HISTORY: Fever TECHNIQUE: Portable semiupright COMPARISON: 04/01/2017 FINDINGS: The lungs are well expanded. No cardiomegaly. There are no infiltrates. No pleural effusions identified. The vessels are not distended. IMPRESSION: No pneumonia. Electronically signed by Sahil Solitario 04/15/2017 11:11 AM
[2017-04-15 12:07] LABS: URINE CULTURE NEEDED? NO; URINE SOURCE CLEAN CATCH
[2017-04-15 12:16] LABS: BILIRUBIN URINE NEGATIVE (NEGATIVE); BLOOD URINE NEGATIVE (NEGATIVE); COLOR YELLOW; GLUCOSE URINE NEGATIVE (NEGATIVE); LEUKOCYTES URINE NEGATIVE (NEGATIVE); NITRITE URINE NEGATIVE (NEGATIVE); PH URINE 7.5; PROTEIN URINE NEGATIVE (NEGATIVE); SP GRAVITY URINE 1.011; TURBIDITY URINE HAZY (CLEAR); URINE MICRO REVIEW NEEDED? YES; UROBILINOGEN URINE NORMAL (NORMAL)
[2017-04-15 12:17] LABS: UR EPITHELIAL CELLS >10 /HPF (<10); URINE BACTERIA 1+ /HPF; URINE RBC <10 /HPF (<10); URINE WBC <10 /HPF (<10)
--- NOTE | 2017-04-15 12:21 | PROVIDER DOCUMENTATION ---
This chart was entered by Sheng Livingston Scribe, acting as scribe for Jamia Coles MD. HPI-General Adult - General Chief Complaint: Back Pain Stated Complaint: FEVER,SICKLE CELL CRISIS Time Seen by Provider: 04/15/17 08:23 Source: patient Allergies/Adverse Reactions: Patient Allergies Allergy/AdvReac Type Severity Reaction Status Date / Time latex Allergy Mild RASH Verified 03/24/17 11:16 meperidine HCl * AdvReac Severe SHORTNESS Verified 03/24/17 11:16 [From Demerol] OF BREATH; AND HEADACHE vancomycin AdvReac Severe RASH Verified 03/24/17 11:16 morphine AdvReac Mild HEADACHE Verified 03/24/17 11:16 AND HIVES Home Medications: Home Medication List Medication Instructions Recorded Confirmed Last Taken Type Hydroxyurea 500 mg PO BID 06/17/16 03/24/17 03/22/17 History Folic Acid 1 mg PO DAILY #30 tablet 09/14/16 03/24/17 03/22/17 Rx Fentanyl 12 Microgm/Hr Patch 1 each TD Q72H #0 patch 12/10/16 03/24/17 03/20/17 Rx [Durages[place] 12 Microgm/Hr Patch] Hydrocodone/APAP 10 mg/325 mg 1 each PO Q6H PRN PRN #18 tablet 04/04/17 Unknown Rx [[place]-10] Ciprofloxacin HCl [Cipro] 500 mg PO BID #14 tablet 04/15/17 Unknown Rx - History of Present Illness -Gen Adult Nature of Presenting Problems: patient is a 22 y/o F that presents to the ER with 24 hours of back pain and fever(101 last pm). Patient is well known to the ER. She has sickle cell and comes in once a week usually for pain control. Patient denies cough, n/v/d, or urinary symptoms Location of Pain/Injury: reports: back Quality of Pain: reports: aching Severity: reports: mild, moderate Onset/Duration: reports: gradual, last night Timing: reports: still present, constant Context/Activities at Onset: reports: none Modifying Factors: improves with: nothing Associated Symptoms: reports: back/neck pain, fever/chills. denies: diarrhea, genitourinary problems, nausea, vomiting Similar Symptoms Previously?: Yes Recently seen or treated by another doctor?: Yes - Sickle Cell Pain Related Context Sickle Cell Pain Location: reports: back Is this pain typical of prior episodes of crisis?: Yes Review of Systems - Adult - REVIEW OF SYSTEMS - ADULT Constitutional: reports: fever. denies: chills Eyes: reports: no symptoms reported Ears, Nose, Mouth & Throat: denies: ear pain, sinus problem, throat pain, throat swelling Cardiovascular: denies: chest pain, palpitations, syncope Respiratory: denies: cough, shortness of breath, wheezing Gastrointestinal: denies: abdominal pain, diarrhea, nausea, vomiting Genitourinary: denies: dysuria, frequency, hematuria Musculoskeletal: reports: back pain. denies: joint pain, joint swelling Integumentary: reports: no symptoms reported Neurological: reports: no symptoms reported Psychiatric: reports: no symptoms reported Endocrine: reports: no symptoms reported Hematologic/Lymphatic: reports: no symptoms reported Allergic/Immunologic: reports: no symptoms reported All Other Systems: Reviewed and Negative Past History - Adult - PAST MEDICAL HISTORY-ADULT Review of Records: reports: Old Records Reviewed, Nursing Assessment Review, Medications Reviewed Respiratory: reports: asthma Musculoskeletal: reports: chronic pain (due sickle cell crisis) Endocrine/Immune: reports: Sickle Cell disease Sickle Cell Genotype:: SS - PRIOR SURGERIES/PROCEDURES Surgical/Procedure History: reports: cholecystectomy, indwelling device (P-A-C placement) - IMMUNIZATION STATUS Childhood Immunizations: See Nurse Assessment Flu Vaccine: See Nurse Assessment - FAMILY HISTORY Family History: sickle cell disease/trait - SOCIAL HISTORY Smoking: cigarettes, less than 1 pack/day Provider spent 3-5 mins advising pt. on dangers of tobacco.: Discussed manners to quit use, and f/u contacts for add'l counseling. Alcohol Use Frequency: occasionally Living Situation: family Physical Exam-General - PHYSICAL EXAM-ADULT Initial Vital Signs Reviewed: Yes - CONSTITUTIONAL General Appearance: alert, no apparent distress - EYES Eyes: PERRL/EOMI, pink conjunctivae - HEAD, EARS, NOSE, MOUTH & THROAT HENMT: normocephalic/atraumatic, moist mucous membranes, normal ENT inspection - NECK Neck: full range of motion, normal inspection - RESPIRATORY Respiratory: lungs clear, normal breath sounds, no respiratory distress, no accessory muscle use - CARDIOVASCULAR Cardiovascular: regular rate, rhythm, no edema, no murmur - GASTROINTESTINAL (ABDOMEN) Abdominal Exam: normal bowel sounds, non tender, soft, no organomegaly, no pulsatile mass - MUSCULOSKELETAL Back Exam: normal inspection, no CVA tenderness, no vertebral tenderness Extremity: normal range of motion, normal inspection, no pedal edema - SKIN Integumentary: normal color, warm/dry - NEUROLOGIC Neurologic: pump runner II-XII nml as tested, no motor/sensory deficits - PSYCHIATRIC Psych/Mental Status: normal mood/affect, normal thought content, normal thought process, oriented x 3 Progress - PLAN OF CARE/RESULTS Progress/Plan/Lab Results: Vital Signs - 8 hr 04/15/17 08:14 Temperature 99.4 F Pulse Rate 96 H Respiratory Rate 16 Blood Pressure 104/78 O2 Sat by Pulse Oximetry 100 Orders Category Date Time Status Saline Loc DIRECTED Care 04/15/17 08:27 Active BLOOD CULTURE [BLDCUL] Stat Lab 04/15/17 08:27 Uncollected CBC WITH ELECTRONIC DIFF [HEME] Stat Lab 04/15/17 08:27 Uncollected COMPREHENSIVE METABOLIC PANEL [CHEM] Stat Lab 04/15/17 08:27 Uncollected LACTATE, PLASMA [CHEM] Stat Lab 04/15/17 08:27 Uncollected RETIC COUNT [HEME] Stat Lab 04/15/17 08:27 Uncollected URINALYSIS W/POSS RFLX CULT-1 [URINALYSIS] Stat Lab 04/15/17 08:27 Uncollected 0.9% Sodium Chloride Inj [Ns] 1,000 ml Med 04/15/17 08:27 Active IV 999 mls/hr Hydromorphone [Dilaudid] Med 04/15/17 08:27 Discontinued 1 mg IV NOW ONE Ondansetron [Zofran] Med 04/15/17 08:27 Discontinued 4 mg IV NOW ONE Result Diagrams: 04/15/17 09:40 04/15/17 09:40 - XRAY 1 XRAY Study: Chest Impression: Normal XRAY Interpretation: no pneumonia Departure - Departure Date of Disposition Decision: 04/15/17 Time of Disposition Decision: 12:19 DIAGNOSIS: Back pain, Sickle cell pain crisis Disposition: HOME 01 Certified Medical Emergency: Emergent Condition: Stable Additional Freetext Instructions: Follow up with regular MD tomorrow. Return to ER if your symptoms worsen. Prescriptions: Ciprofloxacin HCl [Cipro] 500 mg PO BID #14 tablet Referrals and Follow-Ups: None,PCP [Primary Care Provider] - - Critical Care Note This patient required my direct & personal management of CC.: No This chart was documented by the indicated scribe, (Sheng Livingston, Damonibe) and accurately reflects the services I performed and decisions made by me, Jamia Coles MD, as attested by the provider's signature.
[2017-04-15] MEDS ORDERED: PHENERGAN IV ONE (12:33)
[2017-04-15] MEDS ORDERED: SODIUM CHLORIDE 0.9% INJ ONE (12:33)
--- NOTE | 2017-04-15 15:59 | PROVIDER DOCUMENTATION ---
HPI-Work Related Injury - General Chief Complaint: Back Pain Stated Complaint: FEVER,SICKLE CELL CRISIS Time Seen by Provider: 04/15/17 08:23 Allergies/Adverse Reactions: Patient Allergies Allergy/AdvReac Type Severity Reaction Status Date / Time latex Allergy Mild RASH Verified 03/24/17 11:16 meperidine HCl * AdvReac Severe SHORTNESS Verified 03/24/17 11:16 [From Demerol] OF BREATH; AND HEADACHE vancomycin AdvReac Severe RASH Verified 03/24/17 11:16 morphine AdvReac Mild HEADACHE Verified 03/24/17 11:16 AND HIVES Home Medications: Home Medication List Medication Instructions Recorded Confirmed Last Taken Type Hydroxyurea 500 mg PO BID 06/17/16 03/24/17 03/22/17 History Folic Acid 1 mg PO DAILY #30 tablet 09/14/16 03/24/17 03/22/17 Rx Fentanyl 12 Microgm/Hr Patch 1 each TD Q72H #0 patch 12/10/16 03/24/17 03/20/17 Rx [Duragesic 12 Microgm/Hr Patch] Hydrocodone/APAP 10 mg/325 mg 1 each PO Q6H PRN PRN #18 tablet 04/04/17 Unknown Rx [[place]-10] Ciprofloxacin HCl [Cipro] 500 mg PO BID #14 tablet 04/15/17 Unknown Rx Hydrocodone/APAP 10 mg/325 mg 1 each PO Q8H PRN PRN #7 tablet 04/15/17 Unknown Rx [[place]-10] Past History - Adult - PAST MEDICAL HISTORY-ADULT Major Childhood Illnesses: reports: denies history, history unknown Cardiovascular: reports: denies history Respiratory: reports: asthma Gastrointestinal: reports: denies history Obstetrical/Gynecological: reports: denies history Genitourinary: reports: denies history Musculoskeletal: reports: chronic pain (due sickle cell crisis) Neurological: reports: denies history Endocrine/Immune: reports: Sickle Cell disease Sickle Cell Genotype:: SS Other Conditions: reports: denies history - PRIOR SURGERIES/PROCEDURES Surgical/Procedure History: reports: cholecystectomy, indwelling device (P-A-C placement) - IMMUNIZATION STATUS Childhood Immunizations: See Nurse Assessment Flu Vaccine: See Nurse Assessment - FAMILY HISTORY Family History: sickle cell disease/trait - SOCIAL HISTORY Smoking: cigarettes, less than 1 pack/day Alcohol Use Frequency: occasionally Living Situation: family Progress - PLAN OF CARE/RESULTS Progress/Plan/Lab Results: Vital Signs - 8 hr 04/15/17 08:14 04/15/17 10:59 Temperature 99.4 F 98.4 F Pulse Rate 96 H 73 Respiratory Rate 16 16 Blood Pressure 104/78 103/43 O2 Sat by Pulse Oximetry 100 98 Laboratory Results - last 24 hr 04/15/17 04/15/17 04/15/17 09:40 09:40 09:40 WBC 14.91 H RBC 3.70 L Hgb 9.6 L Hct 29.1 L MCV 78.6 L MCH 25.9 L MCHC 33.0 RDW Std Deviation 19.7 H Plt Count 291 MPV 8.4 Immature Gran % (Auto) 0.2 Neut % (Auto) 82.4 H Lymph % (Auto) 12.2 L [place] % (Auto) 4.0 Eos % (Auto) 1.0 Baso % (Auto) 0.2 Immature Gran # (Auto) 0.03 Neut # (Auto) 12.29 H Lymph # (Auto) 1.82 [place] # (Auto) 0.59 Eos # (Auto) 0.15 Baso # (Auto) 0.03 Percent Retic 9.04 H Retic Hgb Equivalent 24.9 L Sodium 138 Potassium 4.2 Chloride 100 Carbon Dioxide 26 Anion Gap 12 BUN 12 Creatinine 0.5 Estimated GFR/1.73 m2 > 60 BUN/Creatinine Ratio 24 Glucose 102 Calculated Osmolality 276 Calcium 9.8 Total Bilirubin 1.26 H AST 26 ALT 14 Alkaline Phosphatase 110 H Total Protein 8.4 H Albumin 4.7 Globulin 3.7 Albumin/Globulin Ratio 1.3 Plasma Lactate 1.1 Urine Source Urine Color Urine Turbidity Urine pH Ur Specific [place] Urine Protein Ur Glucose (Stick) Ur Ketones (Stick) Urine Blood Urine Nitrite Urine Bilirubin Urobilinogen Dipstick Urine Leukocytes Urine WBC (Auto) Urine RBC (Auto) U Epithel Cells (Auto) Urine Bacteria (Auto) Urine Crystals Small Round Cells Urine Casts Urine Yeast-like Cells 04/15/17 12:00 WBC RBC Hgb Hct MCV MCH MCHC RDW Std Deviation Plt Count MPV Immature Gran % (Auto) Neut % (Auto) Lymph % (Auto) [place] % (Auto) Eos % (Auto) Baso % (Auto) Immature Gran # (Auto) Neut # (Auto) Lymph # (Auto) [place] # (Auto) Eos # (Auto) Baso # (Auto) Percent Retic Retic Hgb Equivalent Sodium Potassium Chloride Carbon Dioxide Anion Gap BUN Creatinine Estimated GFR/1.73 m2 BUN/Creatinine Ratio Glucose Calculated Osmolality Calcium Total Bilirubin AST ALT Alkaline Phosphatase Total Protein Albumin Globulin Albumin/Globulin Ratio Plasma Lactate Urine Source CLEAN CATCH Urine Color YELLOW Urine Turbidity HAZY Urine pH 7.5 Ur Specific [place] 1.011 Urine Protein NEGATIVE Ur Glucose (Stick) NEGATIVE Ur Ketones (Stick) NEGATIVE Urine Blood NEGATIVE Urine Nitrite NEGATIVE Urine Bilirubin NEGATIVE Urobilinogen Dipstick NORMAL Urine Leukocytes NEGATIVE Urine WBC (Auto) <10 Urine RBC (Auto) <10 U Epithel Cells (Auto) >10 A Urine Bacteria (Auto) 1+ Urine Crystals Not Reportable Small Round Cells Not Reportable Urine Casts Not Reportable Urine Yeast-like Cells PRESENT Orders Category Date Time Status Saline Loc DIRECTED Care 04/15/17 08:27 Active CHEST-PORTABLE [RAD] Stat Exams 04/15/17 10:53 Completed BLOOD CULTURE [BLDCUL] Stat Lab 04/15/17 10:07 Results CBC WITH ELECTRONIC DIFF [HEME] Stat Lab 04/15/17 09:40 Completed COMPREHENSIVE METABOLIC PANEL [CHEM] Stat Lab 04/15/17 09:40 Completed LACTATE, PLASMA [CHEM] Stat Lab 04/15/17 09:40 Completed RETIC COUNT [HEME] Stat Lab 04/15/17 09:40 Completed URINALYSIS W/POSS RFLX CULT-1 [URINALYSIS] Stat Lab 04/15/17 12:00 Completed URINE MANUAL MICROSCOPIC [URINALYSIS] Stat Lab 04/15/17 12:00 Completed 0.9% Sodium Chloride Inj [Ns] 1,000 ml Med 04/15/17 08:27 Discontinued IV 999 mls/hr CefTRIAXONE 1 GM/NS [Rocephin 1 gm/Ns] Med 04/15/17 10:54 Discontinued 1 gm in 50 ml IV NOW Hydromorphone [Dilaudid] Med 04/15/17 08:27 Discontinued 1 mg IV NOW ONE Hydromorphone [Dilaudid] Med 04/15/17 12:33 Discontinued 1 mg IV NOW ONE Ondansetron [Zofran] Med 04/15/17 08:27 Discontinued 4 mg IV NOW ONE Promethazine [Phenergan] Med 04/15/17 12:33 Discontinued 25 mg IV NOW ONE Sodium Chloride 0.9% Med 04/15/17 12:33 Discontinued 10 ml INJ NOW ONE Result Diagrams: 04/15/17 09:40 04/15/17 09:40 Departure - Departure DIAGNOSIS: Back pain, Sickle cell pain crisis Disposition: HOME 01 Condition: Stable Additional Freetext Instructions: Follow up with regular MD tomorrow. Return to ER if your symptoms worsen. Prescriptions: Ciprofloxacin HCl [Cipro] 500 mg PO BID #14 tablet Hydrocodone/APAP 10 mg/325 mg [[place]-10] 1 each PO Q8H PRN PRN #7 tablet PRN Reason: Pain Referrals and Follow-Ups: None,PCP [Primary Care Provider] - Discharge Education: Back Pain, Adult, [id number], Sickle Cell Anemia, Adult , [id number]
[2017-04-15] MEDS ORDERED: ZOFRAN IV PRN (18:23)
[2017-04-15] MEDS ORDERED: TYLENOL PO PRN (18:23)
[2017-04-15] MEDS ORDERED: SODIUM CHLORIDE 0.9% INJ PRN (18:23)
[2017-04-15] MEDS: BENADRYL IV PRN (18:48)
[2017-04-15] MEDS: DILAUDID IV PRN ×3 (18:49→22:57)
[2017-04-15] MEDS: NS 1,000 ML IV SCH (18:49)
--- NOTE | 2017-04-15 18:49 | HISTORY AND PHYSICAL ---
CHIEF COMPLAINT: Back pain, sickle cell crisis. HISTORY OF PRESENT ILLNESS: This is a 22-year-old female who is well known to our service for multiple admissions for the same. She comes in complaining of back pain that began last night. She states she had a fever of 101.9 last night and that she took [place] and that the fever did subside and has not returned. She states this does feel like her normal sickle crisis. She denied any cough, sinus drainage, any urinary symptoms. Labs show a WBC of 14.9, with a percent rate of 9.04 with a reticulocyte of 24.9. Urinalysis is essentially negative. Chest x-ray revealed no pneumonia. She is being admitted for further evaluation and treatment. PAST MEDICAL HISTORY: Sickle cell disease and chronic pain issues. PAST SURGICAL HISTORY: Port-A-Cath and removal, cholecystectomy, avascular necrosis, and hip surgery. SOCIAL HISTORY: She denies alcohol or tobacco use. ALLERGIES: Latex, meperidine, vancomycin, and morphine. HOME MEDICATIONS: Hydroxyurea 500 mg b.i.d., folic acid daily, fentanyl patch every 3 days, [place] p.r.n. REVIEW OF SYSTEMS: A 14 point review of systems is discussed with patient with pertinent positives stated in HPI. She denied chest pain, palpitations, dizziness, syncope, nausea, vomiting, diarrhea, constipation, any black or bloody vomitus, black or bloody stools, hematuria, dysuria, frequency, urgency. PHYSICAL EXAMINATION: GENERAL: This is a 22-year-old female, who is lying in the bed, in no distress. VITAL SIGNS: Blood pressure is 115/45, with a heart rate of 86, respirations are 16, temperature is 98.7 degrees, with oxygen saturations of 100% on room air. HEENT: Head is normocephalic, atraumatic. Pupils equal, round, react to light. Mucous membranes are moist. NECK: Supple. Trachea midline. CARDIOVASCULAR: Regular rate and rhythm. S1, S2 appreciated. PULMONARY: Her breath sounds are clear with no increased work of breathing noted. GASTROINTESTINAL: Abdomen is soft, nontender, nondistended. Bowel sounds in all 4 quadrants. EXTREMITIES: No clubbing, cyanosis, or edema. Calves are nontender. Pulses are palpable x4. NEUROLOGIC: She is alert and oriented x3. Cranial nerves 2 through 12 grossly intact. DIAGNOSTICS: WBC is 14.9, with hemoglobin 9.6, hematocrit 29.1, and platelets of 291,000, reticulocyte count of 9%. Chest x-ray revealed no pneumonia. Urinalysis is essentially negative. ASSESSMENT AND PLAN: 1. Sickle cell crisis. 2. Fever. PLAN: She will be admitted to the hospital. She will receive IV hydration. We will give pain medication of Dilaudid with Phenergan and Benadryl for nausea and itching. We will repeat labs in the morning. She has had port infections in the past, although she does not report any signs or symptoms of infection. As her white count was 14 and she did have a fever last night, we will continue with Rocephin. Blood cultures are pending. Further treatments pending hospital course. Dictated by CORRINA Molina for Kristian Jasso MD cc: CORRINA Molina MD
[2017-04-15] MEDS: PRILOSEC PO SCH (20:23)
[2017-04-15] MEDS: PHENERGAN IV PRN (20:57)
[2017-04-16] MEDS: BENADRYL IV PRN ×2 (00:53→07:51)
[2017-04-16] MEDS: DILAUDID IV PRN ×8 (00:53→23:50)
[2017-04-16] MEDS: NS 1,000 ML IV SCH ×3 (02:13→20:04)
[2017-04-16] MEDS: PHENERGAN IV PRN (02:59)
[2017-04-16 06:12] LABS: MANUAL DIFF NEEDED? NO
[2017-04-16] MEDS: PRILOSEC PO SCH ×2 (06:14→20:04)
[2017-04-16 06:40] LABS: BASO% 0.3 % (0.0-0.8); EOS# 0.27 X1000 (0.0-0.7); EOS% 2.3 % (0.0-10.0); HEMATOCRIT 24.6 % (37.0-47.0); IMM GRAN# 0.02 X1000 (0.0-0.04); IMM GRAN% 0.2 % (0.0-0.5); LYMPH# 3.19 X1000 (1.2-3.4); LYMPH% 27.2 % (20.5-51.1); MCH 25.6 PG (27-31); MCHC 32.5 g/dL (33-37); MCV 78.6 FL (81-99); MONO# 0.85 X1000 (0.11-0.59); MONO% 7.3 % (1.7-9.3); MPV 8.2 FL (7.4-10.4); NEUT% 62.7 % (42.2-75.2); PLT 258 X1000 (130-400); RBC 3.13 XMIL (4.2-5.4)
[2017-04-16 07:01] LABS: AGAP 9; BUN 12 mg/dL (8-22); CALCIUM 8.2 mg/dL (8.8-10.2); CHLORIDE 106 mmol/L (98-107); COSMO 278; POTASSIUM 3.9 mmol/L (3.5-5.1); SODIUM 139 mmol/L (136-145); TCO2 24 mmol/L (25-35)
[2017-04-16] MEDS ORDERED: NORCO-10 PO PRN ×2 (08:02→12:07)
[2017-04-16] MEDS ORDERED: DURAGESIC 25 MICROGM/HR PATCH TD SCH (12:15)
[2017-04-16] MEDS: ROCEPHIN 1 GM/NS 1 GM/50 ML IVPB IV SCH (12:26)
--- NOTE | 2017-04-16 13:13 | PROGRESS NOTE ---
DATE: 04/16/2017 SUBJECTIVE: This patient is still complaining off back pain. As per the patient, previous to the admission, she had a fever of 101.9. Apparently, she took [place] and that fever did subside and has not returned. Apparently, also she has her menstrual periods and every time she has this problem apparently she has a crisis. This patient is well known by our service. She has been admitted multiple times for the same problem. Hematology Oncology already increased the dose of her Fentanyl patch to 25. I will monitor this patient for 1 or 2 more days. I do not think this patient is having a sickle cell crisis. Blood culture has been negative. Urine culture has been negative. I will ask for a urine culture. OBJECTIVE: Vital Signs: Temperature 98.3 degrees, pulse 78, respiratory rate 18, blood pressure 99/56, oxygen saturation 100% on room air. HEENT: Normocephalic. No trauma. PERRLA. Neck: Supple. No JVD. No masses. Central trachea. Chest: Clear to auscultation. No wheezing. No rales. Abdomen is soft, nontender, nondistended. No hepatosplenomegaly. Extremities: No edema. No clubbing. No cyanosis. Skin: Pale, hydrated, warm. Neurological: The patient is alert and oriented x3. No focal neurological deficits. LABORATORY: WBC 11.1. Hemoglobin 8, hematocrit 24.6, platelets 258,000. Sodium 139, potassium 3.9, chloride 106, bicarbonate 24. BUN 12, creatinine 0.4, glucose 106. Calcium 8.2. ASSESSMENT AND PLAN: 1. Sickle cell crisis. We will continue with the same management for now. She is getting a little bit better. I will stop her Benadryl and also her Benadryl and also her Phenergan. I will decrease the frequency of her Dilaudid. I will put this patient back on her fentanyl patch. 2. Questionable fever, she does not have any episodes of fever during this hospitalization. Apparently, she had fever at home. We will continue to monitor. I will put this patient back on her folic acid and also hydroxyurea. And, like I mentioned before, Hematology/Oncology as an outpatient already increased the dose of her fentanyl patch. cc: Eros Redmond MD
[2017-04-16] MEDS: HYDREA PO SCH (20:04)
[2017-04-17] MEDS: DILAUDID IV PRN ×3 (03:48→12:00)
[2017-04-17] MEDS: NS 1,000 ML IV SCH ×2 (05:49→10:52)
[2017-04-17] MEDS: PRILOSEC PO SCH (06:02)
[2017-04-17 06:32] LABS: MANUAL DIFF NEEDED? NO
[2017-04-17 06:41] LABS: BASO% 0.4 % (0.0-0.8); EOS% 2.9 % (0.0-10.0); HEMATOCRIT 26.9 % (37.0-47.0); HEMOGLOBIN 8.8 g/dL (12.0-16.0); IMM GRAN# 0.03 X1000 (0.0-0.04); IMM GRAN% 0.3 % (0.0-0.5); LYMPH# 2.13 X1000 (1.2-3.4); LYMPH% 20.4 % (20.5-51.1); MCH 25.4 PG (27-31); MCHC 32.7 g/dL (33-37); MCV 77.5 FL (81-99); MONO# 0.65 X1000 (0.11-0.59); MONO% 6.2 % (1.7-9.3); MPV 8.5 FL (7.4-10.4); NEUT% 69.8 % (42.2-75.2); PLT 252 X1000 (130-400); RBC 3.47 XMIL (4.2-5.4); RETIC% 6.26 % (0.8-2.1); RETIC-HE 22.2 PG (28.2-36.6)
[2017-04-17 06:55] LABS: AGAP 12; BUN 9 mg/dL (8-22); CALCIUM 8.7 mg/dL (8.8-10.2); CHLORIDE 102 mmol/L (98-107); COSMO 267; POTASSIUM 4.3 mmol/L (3.5-5.1); SODIUM 134 mmol/L (136-145); TCO2 21 mmol/L (25-35)
[2017-04-17] MEDS: HYDREA PO SCH (08:10)
[2017-04-17] MEDS ORDERED: FOLIC ACID PO SCH (09:00)
[2017-04-17] MEDS: ROCEPHIN 1 GM/NS 1 GM/50 ML IVPB IV SCH (12:54)
[2017-04-17 14:33] VITALS: BP 106/67
--- NOTE | 2017-04-18 08:01 | DISCHARGE SUMMARY ---
ADMISSION DATE: 04/15/2017 DISCHARGE DATE: 04/17/2017 DISCHARGE DIAGNOSES: 1. Sickle cell crisis. 2. Sickle cell disease. 3. Chronic anemia. 4. Chronic pain syndrome. HOSPITAL COURSE: A 22-year-old, female, well-known to our service for multiple admissions for the same complaint. She came complaining of back pain that began the day before admission and as per the patient, she also had fever at 101.9. She said that took [place] and the fever did subside and has no returned. She went to the emergency department and lab work showed a WBC of 14.9. Urinalysis negative. Chest x-ray did not show pneumonia. She was admitted, she was placed on fluids, hydroxyurea, folic acid and pain medication. We followed her lab work and also cultures, and all them improved and cultures were negative. 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 Salmon. Upon discharge, the patient was still complaining of pain but not as bad as before. And like I mentioned in my previous diagnosis, this patient is always complaining about pain and I do believe that probably this patient also has some kind of drug problems and she should go to a pain doctor or detox center. PHYSICAL EXAMINATION: Vital signs: Temperature 99 degrees, pulse 90. Blood pressure 106/67, oxygen saturation 100% on room air. HEENT: Head normocephalic. No trauma. PERRLA. Pale conjunctivae. Neck: Is supple. No JVD. No masses. Central trachea. Chest: Clear to auscultation. No wheezing. No rales. Abdomen: Soft, nontender, nondistended. No hepatosplenomegaly. Cardiovascular: Regular rate and rhythm. No murmurs. Extremities: No edema. No clubbing. No cyanosis. Neurological: The patient is alert and oriented x3. No focal deficits. LABORATORY: WBC 10.4, hemoglobin 8.8, hematocrit 26.9, platelet 252,000. Reticulocyte count 6.26, sodium 134, potassium 4.3, chloride 102, bicarbonate 21, BUN 9, creatinine 0.5, glucose 94. Calcium 8.7. FOLLOWUP: Followup by Dr. Salmon this week or at the beginning of the next week. DISCHARGE MEDICATION: 1. Fentanyl patch 25 mcg every 72 hours. 2. Folic acid 1 mg p.o. daily. 3. Hydroxyurea 500 mg p.o. b.i.d. 4. [place] 10 one tablet p.o. q.6 hours p.r.n. TIME DISCHARGING THIS PATIENT: Thirty 30 minutes. cc: Eros Redmond MD
== END 2017-04-17 15:25 | disposition home or self-care (01) ==
LOC: ED 07:52 → SUATTDRO 16:57 → P.MEDSURG 16:57
PROVIDERS: ATTEND Internal Medicine

== ENCOUNTER 2017-04-21 12:34 | Inpatient (IN) ==
[2017-04-21] MEDS ORDERED: PHENERGAN IM ONE (14:43)
[2017-04-21] MEDS ORDERED: DILAUDID IM ONE (14:43)
--- NOTE | 2017-04-21 14:44 | Diag Imaging Result Doc PS360 ---
EXAM: CHEST-2 VIEWS - 04/21/2017 HISTORY: chest and back pain, sickle cell TECHNIQUE: Chest two views COMPARISON: Portable exam of 04/15/2017 FINDINGS: Heart size is normal. The lungs appear clear. There is no vascular congestion, pleural effusion, or pneumothorax identified. IMPRESSION: No evidence of acute disease. Electronically signed by Fernando Arreola 04/21/2017 2:42 PM
[2017-04-21 15:30] LABS: MANUAL DIFF NEEDED? NO
[2017-04-21 15:33] LABS: BASO% 0.3 % (0.0-0.8); EOS# 0.09 X1000 (0.0-0.7); EOS% 0.6 % (0.0-10.0); HEMATOCRIT 25.9 % (37.0-47.0); HEMOGLOBIN 8.6 g/dL (12.0-16.0); IMM GRAN# 0.04 X1000 (0.0-0.04); IMM GRAN% 0.3 % (0.0-0.5); LYMPH# 2.63 X1000 (1.2-3.4); LYMPH% 17.7 % (20.5-51.1); MCH 25.4 PG (27-31); MCHC 33.2 g/dL (33-37); MCV 76.6 FL (81-99); MONO% 6.1 % (1.7-9.3); MPV 8.4 FL (7.4-10.4); PLT 305 X1000 (130-400); RBC 3.38 XMIL (4.2-5.4); RETIC% 5.58 % (0.8-2.1)
[2017-04-21 15:53] LABS: AGAP 14; ALBUMIN 4.5 g/dL (3.5-5.0); ALKALINE PHOSPHATASE 98 U/L (32-104); BUN 7 mg/dL (8-22); CALCIUM 8.8 mg/dL (8.8-10.2); CHLORIDE 104 mmol/L (98-107); COSMO 284; GOT 23 U/L (10-30); GPT 10 U/L (10-36); POTASSIUM 3.6 mmol/L (3.5-5.1); SODIUM 144 mmol/L (136-145); TCO2 26 mmol/L (25-35); TOTAL BILIRUBIN 0.83 mg/dL (0.20-1.00)
[2017-04-21] MEDS ORDERED: NS 1,000 ML IV ONE (16:09)
[2017-04-21] MEDS ORDERED: PHENERGAN IV ONE (16:10)
[2017-04-21] MEDS ORDERED: SODIUM CHLORIDE 0.9% INJ ONE (16:10)
[2017-04-21] MEDS ORDERED: DILAUDID IV ONE (16:49)
--- NOTE | 2017-04-21 17:47 | PROVIDER DOCUMENTATION ---
This chart was entered by Brionna Osei Scribe, acting as scribe for Bear Callaway MD. HPI-General Adult - General Chief Complaint: Sickle Cell Crisis Stated Complaint: SICKLE CELL CRISIS Time Seen by Provider: 04/21/17 13:55 Source: patient Allergies/Adverse Reactions: Patient Allergies Allergy/AdvReac Type Severity Reaction Status Date / Time latex Allergy Mild RASH Verified 03/24/17 11:16 meperidine HCl * AdvReac Severe SHORTNESS Verified 03/24/17 11:16 [From Demerol] OF BREATH; AND HEADACHE vancomycin AdvReac Severe RASH Verified 03/24/17 11:16 morphine AdvReac Mild HEADACHE Verified 03/24/17 11:16 AND HIVES Home Medications: Home Medication List Medication Instructions Recorded Confirmed Last Taken Type Hydroxyurea 500 mg PO BID 06/17/16 04/16/17 04/15/17 History Folic Acid 1 mg PO DAILY #30 tablet 09/14/16 04/16/17 04/15/17 Rx Fentanyl 25 mcg TD Q72H 04/16/17 04/16/17 04/13/17 History Hydrocodone/APAP 10 mg/325 mg 1 each PO Q6H PRN PRN #18 tablet 04/17/17 Unknown Rx [[place]-10] - History of Present Illness -Gen Adult Nature of Presenting Problems: Pt is a 22 year old female who came to the ED with a cc of having a sickle cell crisis and has been in pain since he was discharged from [facility] on 04/17/17. Pt reports she has had a fever but it went down after taking Tylenol. Pt reports she takes norco but it does not help the pain. pt was talked to about her drug seeking habits. Dr. Callaway reviewed her last admission and progress notes from [facility]. Location of Pain/Injury: reports: chest, back Pain Radiation: reports: no radiation Quality of Pain: reports: sharp Severity: reports: mild Onset/Duration: reports: 4 days ago Timing: reports: still present Context/Activities at Onset: reports: none Modifying Factors: improves with: nothing Associated Symptoms: reports: chest pain Similar Symptoms Previously?: Yes Recently seen or treated by another doctor?: Yes - Sickle Cell Pain Related Context Sickle Cell Pain Location: reports: chest, back Review of Systems - Adult - REVIEW OF SYSTEMS - ADULT Constitutional: denies: chills, fever Eyes: reports: no symptoms reported Ears, Nose, Mouth & Throat: reports: no symptoms reported Cardiovascular: reports: chest pain. denies: heart murmur, orthopnea Respiratory: denies: cough, shortness of breath Gastrointestinal: denies: diarrhea, nausea, vomiting Genitourinary: reports: no symptoms reported Musculoskeletal: reports: back pain. denies: joint pain, joint swelling Integumentary: reports: no symptoms reported Neurological: reports: no symptoms reported Psychiatric: reports: no symptoms reported Endocrine: reports: no symptoms reported Hematologic/Lymphatic: reports: no symptoms reported Allergic/Immunologic: reports: no symptoms reported All Other Systems: Reviewed and Negative Past History - Adult - PAST MEDICAL HISTORY-ADULT Review of Records: reports: Old Records Reviewed, Nursing Assessment Review Major Childhood Illnesses: reports: denies history, history unknown Cardiovascular: reports: denies history Respiratory: reports: asthma Gastrointestinal: reports: denies history Obstetrical/Gynecological: reports: denies history Genitourinary: reports: denies history Musculoskeletal: reports: chronic pain (due sickle cell crisis) Neurological: reports: denies history Endocrine/Immune: reports: Sickle Cell disease Sickle Cell Genotype:: SS Other Conditions: reports: denies history - PRIOR SURGERIES/PROCEDURES Surgical/Procedure History: reports: cholecystectomy, indwelling device (P-A-C placement) - IMMUNIZATION STATUS Childhood Immunizations: See Nurse Assessment Flu Vaccine: See Nurse Assessment - FAMILY HISTORY Family History: sickle cell disease/trait Physical Exam-General - PHYSICAL EXAM-ADULT Initial Vital Signs Reviewed: Yes - CONSTITUTIONAL General Appearance: appears well, alert, no apparent distress - EYES Eyes: PERRL/EOMI, pink conjunctivae - HEAD, EARS, NOSE, MOUTH & THROAT HENMT: normocephalic/atraumatic, moist mucous membranes - NECK Neck: non-tender, full range of motion - RESPIRATORY Respiratory: chest non-tender, lungs clear, normal breath sounds - CARDIOVASCULAR Cardiovascular: normal peripheral pulses, regular rate, rhythm - GASTROINTESTINAL (ABDOMEN) Abdominal Exam: normal bowel sounds, non tender, soft - MUSCULOSKELETAL Back Exam: normal inspection, no CVA tenderness Extremity: normal range of motion, non-tender - SKIN Integumentary: normal color, normal turgor, other (no evidence of skin infection ) - NEUROLOGIC Neurologic: grossly normal - PSYCHIATRIC Psych/Mental Status: normal mood/affect, normal thought content, normal thought process, oriented x 3 Progress - PLAN OF CARE/RESULTS Progress/Plan/Lab Results: Vital Signs - 8 hr 04/21/17 12:42 Temperature 99.1 F Pulse Rate 93 H Respiratory Rate 20 Blood Pressure 137/70 O2 Sat by Pulse Oximetry 100 Orders Category Date Time Status CHEST-2 VIEWS [RAD] Stat Exams 04/21/17 14:15 Completed CBC WITH ELECTRONIC DIFF [HEME] Stat Lab 04/21/17 14:15 Uncollected COMPREHENSIVE METABOLIC PANEL [CHEM] Stat Lab 04/21/17 14:15 Uncollected RETIC COUNT [HEME] Stat Lab 04/21/17 14:15 Uncollected Hydromorphone [Dilaudid] Med 04/21/17 14:43 Discontinued 2 mg IM NOW ONE Promethazine [Phenergan] Med 04/21/17 14:43 Discontinued 25 mg IM NOW ONE Oxygen Device Stat Oth 04/21/17 14:15 Active EKG [EKG] Stat Ther 04/21/17 14:15 Ordered 1605 Discussed lab results. The nurses were able to establish a small IV in the right wrist. Patient got partial control with IM dilaudid. Pain now a 7/10. Will redose through IV 1730 Despite 4mg Dilaudid she does not have relief. IVF rate is limited by size of IV. I discussed discharge but patient said 'I'll just be back.' In the past Dr. Hammonds's input on pain management has been helpful. Result Diagrams: 04/21/17 15:07 04/21/17 15:07 - REASSESSMENT Reassessment #1 Time Reassessed: 15:00 (PT was watching tv on exam) Status: unchanged - EKG 1 Time of EKG reading by physician:: 16:19 EKG Read and Signed by:: Bear Callaway EKG Interpretation (*Must complete 3 of following elements*): Normal Rate: 72 Rhythm: NSR w sinus arrhythmia - CONSULTS/PCP/HOSPITALIST Notification #1 *Consult/PCP/Hospitalist*: trever Time Discussed: 17:45 Consult Disposition: Admit Departure - Departure Date of Disposition Decision: 04/21/17 Time of Disposition Decision: 17:39 DIAGNOSIS: Sickle cell pain crisis Fever Qualifiers: Fever type: unspecified Qualified Code(s): R50.9 - Fever, unspecified Disposition: ADMITTED INPATIENT 09 Certified Medical Emergency: Urgent Condition: Stable Referrals and Follow-Ups: None,PCP [Primary Care Provider] - - Critical Care Note This patient required my direct & personal management of CC.: No Attestation - Physician/ EDNA Attestation Patient care was provided by Advanced Practice Provider:: No The physician spent face to face time with patient:: Yes Advanced Practice Provider documentation review:: Supervising physician onsite and consulted in the evaluation and care of this patient. The physician did have a face to face encounter with the patient. This chart was documented by the indicated scribe, (Brionna Osei Scribe) and accurately reflects the services I performed and decisions made by me, Bear Callaway MD, as attested by the provider's signature.
--- NOTE | 2017-04-21 19:09 | HISTORY AND PHYSICAL ---
CHIEF COMPLAINT: Back pain. Sickle cell crisis. HISTORY OF PRESENT ILLNESS: This is a 22-year-old female who is very well known to our service for multiple admissions for pain, and it has been documented recently by me that this patient is a pain-seeker. I think she comes to the hospital just for getting pain medications. According to her, she reports that she is having pain every single day, probably 1 or 2 days out of a month she is not in pain, but the rest of the time she is taking [place] all the time. She reports that for the last 2 days, she was feeling more pain than she usually does, and also she noticed a fever, according to her 100.5 at home. She reports also mild coughing, but she was not bringing up anything. I was called to the ER for admitting the patient. Upon my examination, they did not document any fever. She has been here, admitted many times for the same reason. She is going to be admitted to the hospital to rule out any pneumonia. PAST MEDICAL HISTORY: 1. Sickle cell disease. 2. Chronic pain syndrome/opiate abuse and addiction. PAST SURGICAL HISTORY: 1. Port-A-Cath and removal. 2. Cholecystectomy. 3. Avascular necrosis. 4. Hip surgery. SOCIAL HISTORY: She denies drinking alcohol and using tobacco. ALLERGIES: Latex, Demerol, vancomycin, and morphine. HOME MEDICATIONS: Hydroxyurea, folic acid, fentanyl patch, [place]. REVIEW OF SYSTEMS: Eleven systems were reviewed, and all symptoms are related to H P. PHYSICAL EXAMINATION: VITAL SIGNS: Temperature 98.9 degrees, heart rate 81, respiratory rate 18, blood pressure 125/73, oxygen saturation 99% on room air. GENERAL: This is a 22-year-old female lying in bed, in no acute distress. HEENT: Head is normocephalic and atraumatic. Anicteric sclerae and pale conjunctivae. Mucous membranes moist. NECK: Supple. No JVD noted. No carotid bruits. No lymphadenopathy. No thyromegaly. CARDIOVASCULAR: S1, S2 heard. No murmurs, gallops, or rubs. Regular rate and rhythm. RESPIRATORY: Clear bilaterally to auscultation. No work of breathing or using accessory muscles. ABDOMEN: Soft, nontender to palpation. Bowel sounds present. No organomegaly. EXTREMITIES: No clubbing, cyanosis, or edema. Peripheral pulses present in both legs. NEUROLOGICAL: Patient is alert and oriented x3. Able to move all 4 extremities. Cranial nerves 2-12 grossly normal. LABORATORY DATA: White cell count 14.84, hemoglobin 8.6, hematocrit 25.9, platelets 305, and completely unremarkable BMP. ASSESSMENT AND PLAN: 1. Possible sickle cell crisis. 2. Possible pneumonia. 3. Opiate abuse/drug addiction. This patient is very well known to our service for coming to the hospital, requiring pain medication. Reports that she got a fever and also worsening back pain. This is exactly the same picture that she told us last admission here on 04/15. So at this time, I am going to be very cautious with pain medication. I am going to increase the doses of fentanyl patch from to 25 mcg every 72 hours to 50 mcg.. The patient is going to be aware that if she loses this patch, we are not going to replace it. We had problems in the past with this patch. I think with this medication, we are doubling the doses of fentanyl. It is supposed to take care of the pain. In any case, we are going to provide Dilaudid for the breakthrough pain. In this case, it will be 0.5 mg IV q.6 hours. I am going to instruct, specifically the nurse, and also mine shifter team, to not increase the doses of these medications, either the doses or the frequency. I am going to do a CT of the chest to rule out any pneumonia. Urine cultures and blood cultures are going to be ordered to rule out any possible infection. If those exams return negative, I think this patient can be safely discharged. I advised this patient to look for a pain doctor or a detox center, because upon discharge we are not going to provide pain medication, except very few pills if needed. For me, she is still a big concern, the fact that she comes really often here to this hospital, [facility], [facility], then [facility], all of the hospitals around the area, just looking for pain. We are going to monitor this patient closely. We have to make sure that this patient did not bring any medication with her that can be used, because that can cause respiratory arrest. As per patient request, we are going to consult her primary podiatric medicine professor. We are going to share with him our concerns. cc: Tray Baker MD MTDD
[2017-04-21] MEDS ORDERED: DURAGESIC 50 MICROGM/HR PATCH TD SCH (19:58)
[2017-04-21] MEDS ORDERED: LOVENOX SUBQ SCH (19:58)
[2017-04-21] MEDS ORDERED: ZOFRAN IV PRN (19:58)
[2017-04-21] MEDS: DILAUDID IV PRN (20:23)
[2017-04-21] MEDS: HYDREA PO SCH (20:30)
[2017-04-21] MEDS ORDERED: AMBIEN PO ONE (21:32)
[2017-04-21] MEDS: NS 1,000 ML IV SCH (21:48)
--- NOTE | 2017-04-21 22:54 | Diag Imaging Result Doc PS360 ---
EXAM: CT THORAX W/O CONTRAST HISTORY: rule out pna TECHNIQUE: CT chest without contrast. Dose reduction protocol. COMPARISON: 02/21/2017 FINDINGS: There are no infiltrates. No consolidation. No pleural effusions. Heart is borderline mildly prominent. This is unchanged. No thoracic aneurysm. No enlarged lymph nodes. No bronchiectasis. IMPRESSION: 1.No pneumonia 2.Stable mildly prominent heart Electronically signed by Sahil Solitario 04/21/2017 10:52 PM
[2017-04-22 01:10] LABS: URINE MICRO REVIEW NEEDED? NO; URINE SOURCE VOIDED
[2017-04-22 01:18] LABS: BILIRUBIN URINE NEGATIVE (NEGATIVE); BLOOD URINE NEGATIVE (NEGATIVE); COLOR YELLOW; GLUCOSE URINE NEGATIVE (NEGATIVE); LEUKOCYTES URINE NEGATIVE (NEGATIVE); NITRITE URINE NEGATIVE (NEGATIVE); PROTEIN URINE NEGATIVE (NEGATIVE); SP GRAVITY URINE 1.013; TURBIDITY URINE CLEAR (CLEAR); UR EPITHELIAL CELLS <10 /HPF (<10); URINE BACTERIA NEGATIVE /HPF; URINE RBC <10 /HPF (<10); URINE WBC <10 /HPF (<10); UROBILINOGEN URINE NORMAL (NORMAL)
[2017-04-22] MEDS: DILAUDID IV PRN ×2 (02:22→07:58)
[2017-04-22 06:11] LABS: MANUAL DIFF NEEDED? NO
[2017-04-22 06:21] LABS: BASO% 0.2 % (0.0-0.8); EOS# 0.17 X1000 (0.0-0.7); EOS% 1.4 % (0.0-10.0); HEMATOCRIT 26.5 % (37.0-47.0); HEMOGLOBIN 8.8 g/dL (12.0-16.0); IMM GRAN# 0.05 X1000 (0.0-0.04); IMM GRAN% 0.4 % (0.0-0.5); LYMPH# 3.55 X1000 (1.2-3.4); LYMPH% 28.7 % (20.5-51.1); MCH 25.7 PG (27-31); MCHC 33.2 g/dL (33-37); MCV 77.3 FL (81-99); MONO# 1.02 X1000 (0.11-0.59); MONO% 8.3 % (1.7-9.3); MPV 8.9 FL (7.4-10.4); PLT 290 X1000 (130-400); RBC 3.43 XMIL (4.2-5.4)
[2017-04-22 06:49] LABS: AGAP 10; BUN 8 mg/dL (8-22); CALCIUM 8.5 mg/dL (8.8-10.2); CHLORIDE 105 mmol/L (98-107); COSMO 281; POTASSIUM 3.8 mmol/L (3.5-5.1); SODIUM 142 mmol/L (136-145); TCO2 27 mmol/L (25-35)
[2017-04-22] MEDS ORDERED: PRILOSEC PO SCH (07:00)
[2017-04-22 07:20] VITALS: BP 145/73
[2017-04-22] MEDS: HYDREA PO SCH (07:59)
[2017-04-22] MEDS: NS 1,000 ML IV SCH (08:01)
[2017-04-22 08:35] LABS: ALLEN TEST YES; BE 1.2 mmoll (-3.0-3.0); BLOOD TYPE ARTERIAL; DRAW SITE R RADIAL; METHB 1.2 % (0.0-1.5); O2(CT) 11.7 mL/dL (15.0-23.0); PCO2(98.6) 41 mmHg (35-45); PO2(98.6) 89 mmHg (60-100); SAMPLE BLOOD; SAO2 98.8 % (95.0-100.0); THB 8.6 g/dL (11.5-17.4); pH(98.6) 7.41 (7.35-7.45)
[2017-04-22] MEDS ORDERED: OFIRMEV 1000 MG/ISOTONIC SOLN 1,000 MG/100 ML BOTTLE IV SCH (09:00)
[2017-04-22] MEDS ORDERED: FOLIC ACID PO SCH (09:00)
[2017-04-22 09:18] LABS: UR AMPHETAMINES QUAL NONE DETECTED (NONE DETECT); UR BARBITUATES QUAL NONE DETECTED (NONE DETECT); UR BENZODIAZEPIN QUAL NONE DETECTED (NONE DETECT); UR CANNABINOIDS QUAL PRESUMPTIVE POSITIVE (NONE DETECT); UR COCAINE QUAL NONE DETECTED (NONE DETECT); UR METHADONE QUAL NONE DETECTED (NONE DETECT); UR OPIATES QUAL PRESUMPTIVE POSITIVE (NONE DETECT); UR OXYCODONE QUAL NONE DETECTED (NONE DETECT); UR PCP QUAL NONE DETECTED (NONE DETECT)
--- NOTE | 2017-04-23 06:06 | DISCHARGE SUMMARY ---
ADMISSION DATE: 04/21/2017 DISCHARGE DATE: 04/22/2017 CONSULTATIONS: None. PERTINENT PROCEDURES: 1. Chest x-ray showed no evidence of acute disease. 2. Chest CT showed no pneumonia, stable mildly prominent heart. DISCHARGE DIAGNOSES: 1. Sickle cell crisis ruled out. 2. Possible pneumonia ruled out. 3. Opiate abuse/drug addiction. Dr. Carrera again has spoken at length with the patient again to seek a pain doctor and/or a detox center because she has several visits to the ED and several admissions to our hospital, as well as well surrounding EDs and surrounding hospitals, and doctor's offices for pain medications. We do realize that with her sickle cell that this is a delicate situation, but the patient reports that she only had 1 or 2 days per month where she is not in any pain, and that is with a fentanyl patch, as well as p.r.n. pain medications. She states that she does understand and she has been referred to [facility] [place] out of [place]. She states that she is willing to follow up with them. HOSPITAL COURSE: Ms. Henley is a 22-year-old, female, very well known to our service for multiple admissions for pain, as well as sickle cell crisis. According to the patient, she reports having pain every single day except for probably 1-2 days out of the month she is not in pain. She is taking [place] all of the time as well as wearing her fentanyl patches. She did report that the last 2 days prior to her admission, she was feeling more pain than she usually does. She noticed a fever, according to her at 100.5 at home, as well as a mild cough but she was not bringing anything up. She came to the ED. There were no fevers documented. Chest x- ray was negative. We did obtain a CT of the chest just to rule out pneumonia. It was negative. Dr. Carrera did tell her that we would admit her and be very cautious with her pain medications. He did increase her fentanyl patch from 25 mcg every 72 hours to 50 mcg and to be aware that if she loses the patch that they were not going to replace it because there have been problems with this in the past. Urine and blood cultures have all remained negative. Her tox screen was positive for opiates which she does have a prescription as well as cannabis. I do see a nurse's note where it looks like that on 04/21/2017 at 2030 hours, they explained to the patient that the MD specified that if the pain patch came off before the 72 hour period that it is intended for, that it will not be replaced and that the patient verbalized understanding. It did not specify if the patch had come off. In another note, they were not able to get the patient' s temperature or blood pressure because she would not roll off her side. Dr. Carrera had another lengthy conversation with the patient this a.m. about the overuse of narcotics and only using them when necessary. She reports that she is open to going to a detox center. He has given her information on in [place]. She states that she is open to calling for information. He feels she is appropriate for discharge home today. VITAL SIGNS: No temperature was taken. Heart rate 60s, respirations 16, blood pressure is 145/73 on the left leg. O2 was 98% on room air. DISCHARGE DIET: Regular. DISCHARGE MEDICATIONS: 1. Fentanyl patch 50 mcg/hour 1 each TD q.72 hours. 2. Folic acid 1 mg p.o. daily. 3. [place] 10/325 one each p.o. q.6 hours p.r.n., pain. 4. Hydroxyurea 500 mg p.o. b.i.d. 5. Phenergan 25 mg p.o. q.6 hours p.r.n., nausea. 6. Ambien 10 mg p.o. at bedtime. FOLLOWUP: Ms. Henley has been advised about a methadone clinic, , in [place] after discharge. She can continue to follow up with her loan servicing representative, Dr. Salmon, as well as a primary care physician with the list that has been provided to her numerous times. She is to return to the ED for any worsening of symptoms. DISCHARGE TIME: Thirty minutes. Dictated by CORRINA Shetty for Tray Baker MD Addendum: I had a long conversation with Mrs. Henley about pain issues. She reports she feels pain almost all the time and during the last few months she reports she needs to take pain medications every single day and despite doing that she is still on pain. I think this patient developed opiod addiction. When she is in the hospital even though she is receiving Dilaudid 2 mg IV q2hrs she is still pain. Patient thinks she has a problem with opiates and agree to seek for help in a Methadone Clinic. Information will be provided to patient. In the meantime patient will be given prescription for Fentanyl patch and [place] 10 mg until she get an appointment over there. cc: Tray Baker MD MTDD
== END 2017-04-22 10:43 | disposition home health service (06) ==
LOC: ED 12:34 → 4N 18:42
PROVIDERS: ATTEND Internal Medicine

== ENCOUNTER 2018-10-21 17:03 | Inpatient (IN) ==
[2018-10-21] MEDS ORDERED: MAXIPIME 2 GM in NS 100 ML IV ONE (18:17)
[2018-10-21] MEDS ORDERED: NS 1,000 ML IV ONE ×4 (18:18→21:23)
[2018-10-21 19:14] LABS: BASO# 0.08 X1000 (0.0-0.2); BASO% 0.2 % (0.0-0.8); EOS# 0.15 X1000 (0.0-0.7); EOS% 0.4 % (0.0-10.0); HEMATOCRIT 16.2 % (37.0-47.0); HEMOGLOBIN 4.9 g/dL (12.0-16.0); IMM GRAN# 0.18 X1000 (0.0-0.04); IMM GRAN% 0.5 % (0.0-0.5); LYMPH# 6.91 X1000 (1.2-3.4); LYMPH% 20.7 % (20.5-51.1); MCH 24.9 PG (27-31); MCHC 30.2 g/dL (33-37); MCV 82.2 FL (81-99); MONO# 1.67 X1000 (0.11-0.59); NEUT# 24.39 X1000 (1.4-6.5); NEUT% 73.2 % (42.2-75.2); PLT 182 X1000 (130-400); RBC 1.97 XMIL (4.2-5.4); RDW 21.6 % (11.5-14.5); RETIC-HE 21.3 PG (28.2-36.6); WBC 33.38 X1000 (4.8-10.8)
[2018-10-21 19:19] LABS: INR 1.22; PROTIME 16.3 Seconds (11.0-16.0)
[2018-10-21 19:20] LABS: PTT 61.8 Seconds (22.3-41.8)
[2018-10-21 19:38] LABS: BANDS 1 % (0-1); LYMPHS 10 % (21-51); MONO 6 % (1-9); NRBC 16 % (0-0); SEGS 83 % (42-75)
[2018-10-21 19:39] LABS: ANISOCYTOSIS 2+; HYPOCHROM 2+; SICKLE CELLS OCCASIONAL; TARGET CELLS 1+
[2018-10-21 19:40] LABS: ALB/GLOB RATIO 1.4; ALBUMIN 4.2 g/dL (3.5-5.0); ALKALINE PHOSPHATASE 148 U/L (32-104); BUN 6 mg/dL (8-22); CALCIUM 8.5 mg/dL (8.8-10.2); CK PROFILE 38 U/L (24-173); CREATININE 0.5 mg/dL (0.5-0.9); ESTIMATED GFR > 60; GLUCOSE 124 mg/dL (70-104); GOT 40 U/L (10-30); GPT 25 U/L (10-36); TCO2 23 mmol/L (25-35); TOTAL PROTEIN 7.1 g/dL (6.3-8.3)
[2018-10-21] MEDS ORDERED: DILAUDID IV ONE (19:48)
[2018-10-21 20:04] LABS: CHLORIDE 100 mmol/L (98-107); POTASSIUM 3.5 mmol/L (3.5-5.1); SODIUM 140 mmol/L (136-145)
[2018-10-21 20:08] LABS: AGAP 17
[2018-10-21 20:09] LABS: COSMO 278
--- NOTE | 2018-10-21 20:21 | PROVIDER DOCUMENTATION ---
This chart was entered by Natalie Ha Scribe, acting as scribe for Miguel Alcantara MD. HPI-General Adult - General Chief Complaint: Fever Stated Complaint: PNEUMONIA Time Seen by Provider: 10/21/18 18:11 Source: patient Allergies/Adverse Reactions: Patient Allergies Allergy/AdvReac Type Severity Reaction Status Date / Time meperidine HCl * Allergy Severe SHORTNESS Verified 08/27/18 21:34 [From Demerol] OF BREATH; AND HEADACHE vancomycin Allergy Severe RASH Verified 08/27/18 21:34 latex Allergy Mild RASH Verified 08/27/18 21:34 Home Medications: Home Medication List Medication Instructions Recorded Confirmed Last Taken Type Folic Acid 1 mg PO DAILY #30 tablet 09/14/16 08/24/18 06/23/18 Rx Hydroxyurea [Hydrea] 3 cap PO HS 01/01/18 08/24/18 06/24/18 History Deferasirox [Jadenu] 500 mg PO HS 03/17/18 08/24/18 06/23/18 History Fentanyl 12 Microgm/Hr Patch 1 each TD Q72H patch 03/24/18 08/24/18 06/23/18 Rx [Duragesic 12 Microgm/Hr Patch] Hydrocodone/Acetaminophen [[place] 1 ea PO Q4H PRN PRN #20 tab 04/07/18 08/24/18 06/23/18 Rx 10-325 Tablet] Docusate Sodium [Colace] 100 mg PO BID #40 cap 08/08/18 08/24/18 Unknown Rx Lactulose 10 gm PO BID PRN #400 ml 08/08/18 08/24/18 Unknown Rx - History of Present Illness -Gen Adult Nature of Presenting Problems: 23 YOF presents to ED c/o of fever, cough x 1 week, chest pain, SOB. PT has hx of Sickle Cell Anemia. PT states being seen by home appliance tech this morning, had chest XRAY showing pnemonia and hemoglobin of 5. Pt has port in upper right chest, denies pain around port and it is normal upon exam. Pt states having hx of asthma but takes no meds. Pt denies vomiting, abdominal pain, nausea. Location of Pain/Injury: reports: chest Onset/Duration: reports: 1 week ago Timing: reports: still present Associated Symptoms: reports: chest pain, fever/chills - Sickle Cell Pain Related Context Sickle Cell Pain Location: reports: chest (mild) Review of Systems - Adult - REVIEW OF SYSTEMS - ADULT Constitutional: reports: fever. denies: chills Eyes: reports: no symptoms reported Ears, Nose, Mouth & Throat: reports: no symptoms reported Cardiovascular: reports: no symptoms reported Respiratory: reports: chronic cough, cough, shortness of breath Gastrointestinal: reports: no symptoms reported Genitourinary: reports: no symptoms reported Musculoskeletal: reports: no symptoms reported Integumentary: reports: no symptoms reported Neurological: reports: no symptoms reported Psychiatric: reports: no symptoms reported Endocrine: reports: no symptoms reported Hematologic/Lymphatic: reports: other (HX of Sickle cell anemia) Allergic/Immunologic: reports: no symptoms reported All Other Systems: Reviewed and Negative Past History - Adult - PAST MEDICAL HISTORY-ADULT Review of Records: reports: Nursing Assessment Review, Medications Reviewed Major Childhood Illnesses: reports: denies history, history unknown Cardiovascular: reports: denies history Respiratory: reports: asthma Gastrointestinal: reports: denies history Obstetrical/Gynecological: reports: denies history Genitourinary: reports: denies history Musculoskeletal: reports: chronic pain (sickle cell) Neurological: reports: Seizures/Epilepsy Psychiatric: reports: depression Endocrine/Immune: reports: Sickle Cell disease Sickle Cell Genotype:: SS Other Conditions: reports: denies history - PRIOR SURGERIES/PROCEDURES Surgical/Procedure History: reports: cholecystectomy, indwelling device - IMMUNIZATION STATUS Childhood Immunizations: See Nurse Assessment Flu Vaccine: See Nurse Assessment - FAMILY HISTORY Family History: sickle cell disease/trait Physical Exam-General - PHYSICAL EXAM-ADULT Initial Vital Signs Reviewed: Yes - CONSTITUTIONAL General Appearance: alert, other (mild discomfort) - EYES Eyes: PERRL/EOMI, pale conjunctivae - HEAD, EARS, NOSE, MOUTH & THROAT HENMT: normocephalic/atraumatic, moist mucous membranes - RESPIRATORY Respiratory: decreased breath sounds. negative: crackles - CARDIOVASCULAR Cardiovascular: tachycardia. negative: no edema - CHEST (BREASTS) Chest/Breast: other (port-a-cath) - GASTROINTESTINAL (ABDOMEN) Abdominal Exam: normal bowel sounds, non tender - MUSCULOSKELETAL Extremity: normal range of motion, non-tender, normal gait, normal inspection - SKIN Integumentary: normal turgor, warm/dry - NEUROLOGIC Neurologic: basket hand braider II-XII nml as tested, grossly normal - PSYCHIATRIC Psych/Mental Status: normal mood/affect, normal thought content, normal thought process, oriented x 3 Progress - PLAN OF CARE/RESULTS Progress/Plan/Lab Results: Vital Signs - 8 hr 10/21/18 17:28 Temperature 100.9 F H Pulse Rate 129 H Respiratory Rate 24 Blood Pressure 108/59 O2 Sat by Pulse Oximetry 98 Orders Category Date Time Status BLOOD CULTURE [BLDCUL] Stat Lab 10/21/18 17:32 Uncollected CBC WITH ELECTRONIC DIFF [HEME] Stat Lab 10/21/18 17:32 Uncollected COMPREHENSIVE METABOLIC PANEL [CHEM] Stat Lab 10/21/18 17:32 Uncollected Pulse Oximetry Stat Oth 10/21/18 17:32 Active Result Diagrams: 10/21/18 18:55 10/21/18 18:55 - XRAY 1 XRAY Study: Chest Impression: Abnormal ( EXAM: CHEST-2 VIEWS HISTORY: COUGH / HX PNEUMONIA TECHNIQUE: Chest two views COMPARISON: 08/27/2018 FINDINGS: The lungs are well expanded. No cardiomegaly. There are left perihilar and bibasilar small infiltrates. No pleural effusions. No change in the right portacatheter. No pneumothorax. IMPRESSION: Small bilateral infiltrates. Electronically signed by Sahil Solitario 10/21/2018 11:10 AM 10/21/18 1110 Interpreting Physician: Sahil Solitario MD Dictated Date/Time: 10/21/18 1109) - CONSULTS/PCP/HOSPITALIST Notification #1 *Consult/PCP/Hospitalist*: Dr. Wills Time Discussed: 20:20 Consult Disposition: Admit Departure - Departure Date of Disposition Decision: 10/21/18 Time of Disposition Decision: 20:21 DIAGNOSIS: Sickle cell crisis, Severe anemia Pneumonia Qualifiers: Pneumonia type: due to unspecified organism Laterality: bilateral Lung location : unspecified part of lung Qualified Code(s): J18.9 - Pneumonia, unspecified organism Sepsis Qualifiers: Sepsis type: sepsis due to unspecified organism Qualified Code(s): A41.9 - Sepsis, unspecified organism Disposition: ADMITTED INPATIENT 09 Certified Medical Emergency: Emergent Condition: Serious Referrals and Follow-Ups: None,PCP [Primary Care Provider] - - Critical Care Note This patient required my direct & personal management of CC.: No Attestation - Physician/ EDNA Attestation Patient care was provided by Advanced Practice Provider:: No The physician spent face to face time with patient:: Yes Advanced Practice Provider documentation review:: Supervising physician onsite and consulted in the evaluation and care of this patient. The physician did have a face to face encounter with the patient. This chart was documented by the indicated scribe, (Natalie Ha Scribe) and accurately reflects the services I performed and decisions made by Maricruz rowe Kofi X., MD, as attested by the provider's signature.
[2018-10-21] MEDS ORDERED: ZYVOX PO SCH (21:23)
[2018-10-21] MEDS: LOVENOX SUBQ SCH (21:23)
[2018-10-21] MEDS ORDERED: DILAUDID IV PRN (21:23)
[2018-10-21] MEDS ORDERED: TORADOL IV SCH (21:23)
[2018-10-21] MEDS ORDERED: OFIRMEV 1000 MG/ISOTONIC SOLN 1,000 MG/100 ML BOTTLE IV ONE (21:24)
[2018-10-21] MEDS ORDERED: OFIRMEV 1000 MG/ISOTONIC SOLN 1,000 MG/100 ML BOTTLE ONE (21:26)
--- NOTE | 2018-10-21 21:51 | HISTORY AND PHYSICAL ---
PRIMARY CARE PHYSICIAN: Dr. Rigo Salmon. REASON FOR ADMISSION: One-week history of shortness of breath with cough productive of greenish sputum. HISTORY OF PRESENT ILLNESS: Ms. Loyda Henley is a 23-year-old female well known to our service with multiple episodes of sickle cell crisis. Last admission was in August of last year. She comes in today complaining of a 1-week history of shortness of breath with simultaneous cough productive of greenish sputum and fever and chills for the last 2 days. She states that she has had a T max of 104 today, and went to see Dr. Salmon, her manager technical, who referred her to the ER after he did a chest film in his office which was suggestive of bilateral pneumonia. REVIEW OF SYSTEMS: The patient complains of chest pain which is stabbing in nature radiating to her back. She denies any close contacts with respiratory problems. She also complains of lower back pain which is consistent with her crisis type of pain for the last couple of days. A 12- system review of systems was done with positive findings per HPI. ALLERGIES: Demerol, vancomycin, Lasix. HOME MEDICATIONS: Have not yet been reconciled, but she has in the past been on hydroxyurea and Jadenu and a fentanyl patch. FAMILY HISTORY: Notable for thyroid disease, hypertension, and sickle cell in first-degree relatives. SOCIAL HISTORY: She no longer smokes marijuana. No alcohol or illicit drug use at this time. PAST SURGICAL HISTORY: 1. Cholecystectomy. 2. Multiple Med-Port placements. LAB WORK: White count is 33,000, up from 12,000. Hemoglobin and hematocrit 5 and 16, platelets 182 with 83% neutrophils. She has about 27% reticulocytes. PTT is 61, PT 16. Potassium is 3.5, glucose 124, calcium 8.5, total bilirubin 2.1. AST is 40, ALT 25, alkaline phosphatase 148. Normal troponin. Lactate normal. Chest films showed bilateral small infiltrates. PHYSICAL EXAMINATION: GENERAL: Young woman who is in moderate distress from her pain. She is alert and oriented x3 with a normal mood and affect. VITAL SIGNS: Blood pressure is 108/76, heart rate 107, respirations 16, temperature 100.9. She is 98% on room air. HEENT: Head is normocephalic, atraumatic. Eyes PERRL, EOMI. She is mildly icteric and pale. ENT: Oropharynx exam is grossly normal. No central cyanosis. NECK: Supple. No JVD, carotid bruit or thyromegaly. CHEST: She has a Med-port in the right pectoral area. No surrounding erythema noted. No tenderness. Bibasilar crepitations, more on the left than the right. Decreased air entry in the bases. CARDIOVASCULAR: First and second heart sounds heard. No gallops, murmurs or rubs. Rhythm is regular. ABDOMEN: Full and soft without tenderness or megaly. Bowel sounds normal. EXTREMITIES: The patient's pulse volumes distally are slightly diminished, symmetrical and regular. No edema, clubbing or peripheral cyanosis. NEUROLOGIC: No gross focal deficits. SKIN: Intact with no breakdown, lesions or erythema. MUSCULOSKELETAL: Grossly normal. ASSESSMENT: 1. Bilateral pneumonia. 2. Sickle cell anemia, ? hemolytic. 3. Sickle cell crisis secondary to pneumonia and anemia. 4. Coagulopathy, ? related to liver. PLAN: 1. Patient will be transfused 2 units of packed red blood cells. 2. Will start her on broad-spectrum antibiotics to cover for primary nosocomial pathogens. She will be on Zyvox for Staphylococcus and Maxipime for Pseudomonas primarily. Breathing treatments will also be instituted. 3. Fluids post transfusion will be continued, and analgesia will be administered. 4. Consult Dr. Salmon to see her tomorrow. cc: MD Rigo Estrada MD
[2018-10-21] MEDS: DUONEB (A & A) INH SCH (22:00)
[2018-10-21] MEDS ORDERED: BENADRYL IV ONE (22:58)
[2018-10-21] MEDS: TYLENOL PO PRN (23:25)
[2018-10-22] MEDS: DUONEB (A & A) INH SCH ×4 (04:00→23:58)
[2018-10-22 04:15] LABS: URINE SOURCE CLEAN CATCH
[2018-10-22 04:17] LABS: BILIRUBIN URINE NEGATIVE (NEGATIVE); BLOOD URINE NEGATIVE (NEGATIVE); COLOR YELLOW; GLUCOSE URINE NEGATIVE (NEGATIVE); KETONE URINE NEGATIVE (NEGATIVE); LEUKOCYTES URINE NEGATIVE (NEGATIVE); NITRITE URINE NEGATIVE (NEGATIVE); PH URINE 6.5; PROTEIN URINE TRACE mg/dL (NEGATIVE); SP GRAVITY URINE 1.009; TURBIDITY URINE CLEAR (CLEAR); UROBILINOGEN URINE 8 mg/dL (NORMAL)
[2018-10-22 04:34] LABS: UR EPITHELIAL CELLS <10 /HPF (<10); URINE BACTERIA NEGATIVE /HPF; URINE RBC <10 /HPF (<10); URINE WBC <10 /HPF (<10)
[2018-10-22] MEDS: MAXIPIME 2 GM in NS 100 ML IV SCH ×3 (04:57→21:08)
[2018-10-22 05:09] LABS: URINE CASTS NONE SEEN; URINE CRYSTALS NONE SEEN; URINE SMALL ROUND CELLS NONE SEEN; URINE YEAST NONE SEEN
[2018-10-22] MEDS ORDERED: NS 500 ML IV ONE (05:15)
[2018-10-22] MEDS ORDERED: DILAUDID IV PRN (05:30)
[2018-10-22] MEDS ORDERED: MORPHINE IV PRN (07:12)
[2018-10-22] MEDS ORDERED: LACTULOSE PO PRN (07:15)
[2018-10-22] MEDS: ZOFRAN IV PRN ×2 (07:50→14:49)
[2018-10-22 07:56] LABS: BASO# 0.09 X1000 (0.0-0.2); BASO% 0.2 % (0.0-0.8); EOS# 0.07 X1000 (0.0-0.7); EOS% 0.2 % (0.0-10.0); HEMATOCRIT 14.7 % (37.0-47.0); IMM GRAN% 0.7 % (0.0-0.5); LYMPH# 5.84 X1000 (1.2-3.4); LYMPH% 12.9 % (20.5-51.1); MCH 25.7 PG (27-31); MCHC 29.9 g/dL (33-37); MONO# 2.06 X1000 (0.11-0.59); MONO% 4.5 % (1.7-9.3); MPV 9.2 FL (7.4-10.4); NEUT# 36.97 X1000 (1.4-6.5); NEUT% 81.5 % (42.2-75.2); PLT 163 X1000 (130-400); RBC 1.71 XMIL (4.2-5.4); RDW 20.9 % (11.5-14.5); WBC 45.33 X1000 (4.8-10.8)
[2018-10-22 07:57] LABS: AGAP 10; ALB/GLOB RATIO 1.1; ALBUMIN 3.2 g/dL (3.5-5.0); ALKALINE PHOSPHATASE 126 U/L (32-104); BUN 7 mg/dL (8-22); CALCIUM 7.5 mg/dL (8.8-10.2); CHLORIDE 108 mmol/L (98-107); COSMO 277; CREATININE 0.5 mg/dL (0.5-0.9); ESTIMATED GFR > 60; GLUCOSE 117 mg/dL (70-104); GOT 61 U/L (10-30); GPT 28 U/L (10-36); POTASSIUM 3.6 mmol/L (3.5-5.1); SODIUM 139 mmol/L (136-145); TCO2 21 mmol/L (25-35); TOTAL BILIRUBIN 3.14 mg/dL (0.20-1.00); TOTAL PROTEIN 6.1 g/dL (6.3-8.3)
[2018-10-22 07:58] LABS: HEMOGLOBIN 4.4 g/dL (12.0-16.0)
[2018-10-22] MEDS ORDERED: NS 1,000 ML IV SCH (08:30)
[2018-10-22 08:36] LABS: BANDS 8 % (0-1); LYMPHS 4 % (21-51); NRBC 6 % (0-0); SEGS 88 % (42-75)
[2018-10-22 08:37] LABS: ANISOCYTOSIS 2+; HYPOCHROM 2+; POIKILOCYTOSIS 2+; POLYCHROM 1+; TARGET CELLS 1+
[2018-10-22 08:38] LABS: HOWELL-JOLLY BODIES 1+; LARGE PLATELETS 1+; SICKLE CELLS OCCASIONAL
[2018-10-22] MEDS ORDERED: CUBICIN 600 MG in NS 100 ML IV SCH (09:00)
[2018-10-22] MEDS: COLACE PO SCH ×3 (10:16→21:09)
[2018-10-22] MEDS: FOLIC ACID PO SCH (10:16)
[2018-10-22] MEDS: PROTONIX PO SCH (10:22)
[2018-10-22 11:07] LABS: UR AMPHETAMINES QUAL NONE DETECTED (NONE DETECT); UR BARBITUATES QUAL NONE DETECTED (NONE DETECT); UR BENZODIAZEPIN QUAL PRESUMPTIVE POSITIVE (NONE DETECT); UR CANNABINOIDS QUAL NONE DETECTED (NONE DETECT); UR COCAINE QUAL NONE DETECTED (NONE DETECT); UR METHADONE QUAL NONE DETECTED (NONE DETECT); UR OPIATES QUAL PRESUMPTIVE POSITIVE (NONE DETECT); UR OXYCODONE QUAL NONE DETECTED (NONE DETECT); UR PCP QUAL NONE DETECTED (NONE DETECT)
[2018-10-22] MEDS ORDERED: PERCOCET-5 PO PRN (12:04)
--- NOTE | 2018-10-22 12:43 | Diag Imaging Result Doc PS360 ---
EXAM: CHEST-PORTABLE HISTORY: INCREASE WBC TECHNIQUE: Portable upright chest COMPARISON: 10/21/2018 FINDINGS: Poor inspiratory effort. No consolidation. Small right basilar infiltrates remain. No definite left perihilar infiltrates. Heart is borderline mildly prominent. Trace right pleural fluid. No change in the right portacatheter. No pneumothorax. IMPRESSION: Mild interval improvement although there is poor inspiration. Electronically signed by Sahil Solitario 10/22/2018 12:42 PM
[2018-10-22] MEDS: NS 1,000 ML IV SCH ×2 (13:30→21:09)
[2018-10-22] MEDS ORDERED: BENADRYL IV ONE (13:35)
[2018-10-22] MEDS ORDERED: TYLENOL PO ONE (13:35)
--- NOTE | 2018-10-22 14:06 | PROGRESS NOTE ---
DATE: 10/22/2018 SUBJECTIVE: The patient reports still feeling sick. She reports general malaise and she is also feeling some sort of dizzy. OBJECTIVE: Vital Signs: Temperature 98.1, heart rate 111, respiratory rate 19, blood pressure 127/84. O2 saturation 99% on room air. General: This is a 23-year-old - [place] female lying in bed in no acute distress. HEENT: Head is normocephalic, atraumatic. Mucous membranes dry. Neck: No JVD noted. No carotid bruits. No lymphadenopathy. No thyromegaly. Cardiovascular: S1, S2 heard. No murmurs, gallops, or rubs. Regular rate and rhythm. Respiratory: Clear bilaterally to auscultation. No work of breathing or using accessory muscles. Abdomen is soft, nontender to palpation. Bowel sounds present. No organomegaly. Extremities: No clubbing, cyanosis, or edema. Peripheral pulses present in both legs. Neurological: The patient is alert and oriented x3. Moves 4 extremities. LABORATORY DATA: White cell count is 45.33, hemoglobin 4.4, hematocrit 14.7, platelets 163,000 and the BMP remarkable for glucose of 117. ALT 61, AST 28. LDH 660. Total bilirubin 3.14. UDS positive for opiates and benzodiazepines. It is important to remark that the list of home medication does not include any benzodiazepine. ASSESSMENT: 1. Sepsis secondary to gram-negative. 2. Bilateral pneumonia. 3. Sickle cell crisis with hemolysis. 4. History of drug abuse and opiate dependence. PLAN: The patient came into the hospital because of fever. She was found to be in sepsis. Blood pressure is stable now but from yesterday to today, 2 blood cultures were positive for gram- negative. She has been started on daptomycin and on cefepime. Dr. Castellanos has been consulted. We will follow recommendations. We are not sure about the source of this sepsis. We are going to do a CT scan of the chest, abdomen, and pelvis and see what it shows. I have ask specifically if she is using her port to use drugs, but she adamantly denies. At this time, we will continue with the same antibiotics. Patient is having sickle cell crisis. So, we will provide IV fluids and pain medications. At this time, even though with history of opiate dependence, I think she truly needed it. For this sickle cell anemia, she was supposed to have 3 units of blood but she just got 1 unit and, actually after 1 unit, hemoglobin still 4.4. We will continue to monitor this patient closely. For management of sickle cell crisis, we will call Dr. Salmon. His help is appreciated. The hospitalist will manage pain medications for her. cc: Tray Baker MD MTDD
--- NOTE | 2018-10-22 14:47 | Diag Imaging Result Doc PS360 ---
EXAM: CT THORAX/ABD/PELVIS W/CON INDICATION: gram negative bacteremia TECHNIQUE: This exam was performed using automated exposure control, adjustment of mA or kV according to patient size, and/or use of iterative reconstruction technique. COMPARISON: CT abdomen and pelvis dated 08/08/[address] chest dated 07/10/2018 FINDINGS: CHEST: There are multiple focal infiltrates seen throughout both lungs with the most extensive infiltrate at the right lung base. One of these infiltrates exhibit internal cavitation. It is located in the left upper lobe near the apex. These lesions are probably infectious. Septic emboli can have a similar appearance. No filling defects are identified in the main pulmonary arteries. However, the bolus is not optimized for the pulmonary arteries. There is a small right pleural effusion. There are prominent right hilar and subcarinal lymph nodes are probably reactive. There is no cardiomegaly. There is avascular necrosis of the humeral heads bilaterally that is probably sequelae of sickle cell anemia. ABDOMEN/PELVIS: There is stable splenomegaly. There has been a prior cholecystectomy. The liver, adrenal glands, pancreas, kidneys, and urinary bladder are unremarkable. The reproductive tract is grossly unremarkable as imaged. There is abundant stool in the rectum, which may represent a small rectal fecal impaction. The appendix is normal. The remainder of the GI tract is grossly unremarkable. No focal inflammatory changes, free abdominal gas, or free fluid is identified. 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 IMPRESSION: 1.Multifocal infiltrates throughout both lungs with at least one exhibiting cavitation. Please see above discussion. 2.Small right pleural effusion. 3.Stable splenomegaly. 4.Multifocal avascular necrosis that is stable and is assumed to be related to sickle cell anemia. Electronically signed by Gopi Polo 10/22/2018 2:45 PM
[2018-10-22] MEDS: MORPHINE IV PRN ×3 (14:48→21:58)
--- NOTE | 2018-10-22 14:49 | INFECTIOUS DISEASE CONSULT REP ---
DATE: 10/22/2017 CONCLUSION: The patient has a gram-negative jac bacteremia. This I think could have arisen from a possible gram-negative jac pneumonia. I think it would be unlikely that it originates from the urinary tract because the patient's urinalysis showed no white cells and no bacteria. Another possible place for origin of the gram-negative jac bacteremia would be the patient's Port-A-Cath. The patient's CBC shows a white count of 45,330. Hemoglobin 4.4, and platelet count 163,000. Creatinine is 0.5. GFR is greater than 60. The AST is 61. The patient's test was negative. Drug screen was positive for opiates and benzodiazepines. The blood is growing gram- negative jac. The urine culture is pending. Swab for influenza was negative. Chest x-ray shows a small right basilar infiltrate. RECOMMENDATIONS: I agree with treating the patient with cefepime. I think at this time we can discontinue daptomycin. DISCUSSION: The patient tells me that approximately 3 days ago she started coughing and became short of breath. She also had fever. She is not complaining of dysuria. She has not had diarrhea, and she has not had any problem with her Port-A-Cath at home. The patient is having hip and arm pain, which she attributes the fact that she is having a sickle cell crisis. PAST MEDICAL HISTORY/ REVIEW OF SYSTEMS: Eyes and Ears: She does not have any problem seeing or hearing. Neck: No stiffness. Respiratory: See present illness. Gastrointestinal: No nausea, vomiting, or diarrhea. Genitourinary: No dysuria or flank pain. Bones, Joints, Muscles: See present illness. Endocrine: She is not a diabetic, and she does not have thyroid disease. Neurologic: No seizures. No loss of motor or sensory function recently. OBSTETRICAL/GYNECOLOGICAL HISTORY: The patient has never been . Her last menstrual period was approximately 2 months ago. Urinary test was negative. PREVIOUS HOSPITALIZATIONS AND OPERATIONS: The patient has had a cholecystectomy , 3 Port-A-Cath infections which required removal of the Port-A-Cath. She has also been admitted multiple times with sickle cell crisis. She also has been admitted because of pneumonia and urinary tract infection. MEDICAL DISEASES: Positive for sickle cell disease. INFECTIOUS DISEASE HISTORY: Positive for pneumonia, urinary tract infection, and Port-A-Cath infections. The patient also had bacteremia. FAMILY HISTORY: Positive for sickle cell disease and hypothyroidism. SOCIAL HISTORY: [place] She lives with her family. She denies drinking alcoholic beverages or smoking cigarettes or using illicit drugs. HOME MEDICATIONS: 1. Jadenu 2. Colace. 3. Fentanyl patch. 4. Hydrocodone. 5. Hydroxyurea. PHYSICAL EXAMINATION: Vital Signs: Temperature earlier was 103; now it is 98.2. Pulse 116, respirations 19, blood pressure 120/74. Patient is 5 feet 6 inches tall and weighs 140 pounds. General: This is a somewhat ill-appearing young female. She is in no acute distress. Head/Eyes/Ears/Nose/Throat: She can hear my spoken words and see near objects. She does not have any white patches on her tongue. Her sinuses are not tender. Neck: No meningismus. Thorax: The patient has a Port-A-Cath in place on the right side. There is a dressing over the Port-A- Cath. The dressing is intact. Lungs: Clear to auscultation. Cardiovascular: Heart rate is regular and rapid. Abdomen: Soft and nontender. Extremities: The patient' s legs are not tender, and there is no erythema. Neurologic: The patient is alert. She can move her extremities. She is able to ambulate without difficulty. Her sensation is intact to touch. Her memory as regarding her medical history is intact also. Integument: No rash noted. Thank you for the consult. cc: Audi Castellanos MD MTDD
[2018-10-22] MEDS: PERCOCET-5 PO PRN ×3 (15:49→19:49)
[2018-10-22] MEDS ORDERED: NS 0 ML ONE (15:50)
[2018-10-22] MEDS: TYLENOL PO PRN (18:41)
[2018-10-22] MEDS ORDERED: OFIRMEV 1000 MG/ISOTONIC SOLN 1,000 MG/100 ML BOTTLE IV PRN (19:08)
[2018-10-22] MEDS: HYDREA PO SCH ×2 (19:46→21:09)
[2018-10-22] MEDS: LOVENOX SUBQ SCH ×2 (19:47→21:09)
[2018-10-22] MEDS: PATIENT'S OWN MED PO SCH ×2 (21:09)
--- NOTE | 2018-10-22 22:59 | HEMO/ONC CONSULTATION ---
DATE: 10/22/2018 ADMITTING PHYSICIAN: Blossom Wills MD. REQUESTING PHYSICIAN: Blossom Wills MD. We appreciate this consult. CHIEF COMPLAINT: Sickle cell crisis. HISTORY OF PRESENT ILLNESS: Ms. Loyda Henley is a very pleasant, 23-year-old, female well known to Dr. Salmon, with a history of sickle cell anemia. The patient is followed regularly in clinic and has had recurrent exacerbation of pain and crisis over the last several years. Last admission to [facility] was in August 2018. The patient recently had a 1-week history of shortness of breath with cough productive of green sputum as well as subjective fever and chills for 2 days prior. T-max was 104 on the day of admission when she was seen by Dr. Salmon in clinic. She was directed to go to the emergency department after chest x- ray revealed bilateral pneumonia. The patient is currently lying supine in bed and reports that she has bilateral frontal rib pain that radiates around to the back, as well as headache and chest pain. PAST MEDICAL HISTORY: Significant for: 1. Sickle cell disease. 2. Anemia related to #1. 3. Chronic pain. PAST SURGICAL HISTORY: 1. Cholecystectomy. 2. Multiple port placements. MEDICATIONS ON ADMISSION: 1. Hydroxyurea. 2. Jadenu. 3. Fentanyl patch. 4. Drasco. ALLERGIES: Demerol, vancomycin, and Lasix. REVIEW OF SYSTEMS: A 14-point review of systems was obtained and is negative except for as mentioned in HPI. FAMILY HISTORY: Significant for sickle cell disease in three 1st degree relatives. SOCIAL HISTORY: The patient does not use alcohol or illicit drugs. She does not smoke cigarettes. She has quit smoking marijuana as well. PHYSICAL EXAMINATION: General: Ms. Henley is a pleasant, 23-year-old female lying supine in bed in no immediate distress. Vital Signs: Temperature 98.1, blood pressure 89/41, heart rate 113, respirations 16, O2 saturation 100% on room air. HEENT: Normocephalic, atraumatic. Mucous membranes pale and moist. Sclera is icteric. Extraocular movements intact. Neck: Supple. Lungs: With coarse breath sounds in bases. Cardiovascular: S1, S2 is heard. No murmurs, rubs, or gallops. Abdomen: Nondistended. Extremities: No clubbing or cyanosis. The patient does have trace bilateral lower extremity edema. Dermatologic: No rashes, bruises, or lesions. Neurologic: The patient is alert and oriented x3. She has no focal deficits. LABORATORY DATA: Hemoglobin 4.4, hematocrit 14.7, white blood cell count 45.33, platelets 163,000, reticulocyte count 27.50. Sodium 139, potassium 3.6, chloride 188, CO2 of 21, BUN 7, creatinine 0.5, and glucose is 117. Bilirubin is 3.14, alkaline phosphatase 126, AST 61, ALT 28. Urine cultures are pending. Flu swab is negative. Blood cultures are pending. IMAGING STUDIES: Chest x-ray reveals small bilateral infiltrates. ASSESSMENT AND PLAN: 1. Sickle cell crisis in a patient with long history of sickle cell disease and multiple pain crises. Reticulocyte count is significantly elevated, and would continue pain medications as ordered and monitor for control of pain. 2. Anemia, secondary to #1. The patient is significantly anemic at this time at 4.4 hemoglobin. She is status post 1 unit packed red blood cells and is scheduled for 2 additional units. Would continue to monitor CBC closely and transfuse as necessary. 3. Questionable pneumonia. The patient is currently on antibiotics per hospitalist. 4. We will follow along with you and make further recommendations pending outcomes. The above reflects the history, exam, assessment, and plan of Dr. Salmon. Dictated by CORRINA Ramirez for Rigo Salmon MD cc: CORRINA Ramirez MD
[2018-10-23 00:27] LABS: HIV ANTIBODY SCREEN SEE COMMENTS
[2018-10-23] MEDS: MORPHINE IV PRN ×4 (03:42→21:47)
[2018-10-23] MEDS: MAXIPIME 2 GM in NS 100 ML IV SCH ×3 (03:42→20:25)
[2018-10-23] MEDS: DUONEB (A & A) INH SCH ×4 (03:44→22:06)
[2018-10-23] MEDS: PERCOCET-5 PO PRN ×4 (03:45→20:24)
[2018-10-23] MEDS: NS 1,000 ML IV SCH ×4 (04:48→21:52)
[2018-10-23 07:44] LABS: BASO# 0.04 X1000 (0.0-0.2); BASO% 0.2 % (0.0-0.8); EOS# 0.25 X1000 (0.0-0.7); EOS% 1.1 % (0.0-10.0); HEMATOCRIT 20.9 % (37.0-47.0); HEMOGLOBIN 6.5 g/dL (12.0-16.0); IMM GRAN# 0.09 X1000 (0.0-0.04); IMM GRAN% 0.4 % (0.0-0.5); LYMPH% 11.5 % (20.5-51.1); MCH 26.7 PG (27-31); MCHC 31.1 g/dL (33-37); MONO# 0.83 X1000 (0.11-0.59); MONO% 3.8 % (1.7-9.3); MPV 9.2 FL (7.4-10.4); NEUT# 18.07 X1000 (1.4-6.5); PLT 171 X1000 (130-400); RBC 2.43 XMIL (4.2-5.4); RDW 19.4 % (11.5-14.5); RETIC% 16.23 % (0.8-2.1); RETIC-HE 19.8 PG (28.2-36.6); WBC 21.78 X1000 (4.8-10.8)
[2018-10-23 07:50] LABS: AGAP 10; ALKALINE PHOSPHATASE 124 U/L (32-104); BUN 7 mg/dL (8-22); CALCIUM 8.2 mg/dL (8.8-10.2); CHLORIDE 109 mmol/L (98-107); COSMO 279; CREATININE 0.4 mg/dL (0.5-0.9); ESTIMATED GFR > 60; GLUCOSE 123 mg/dL (70-104); GOT 54 U/L (10-30); GPT 24 U/L (10-36); POTASSIUM 4.4 mmol/L (3.5-5.1); SODIUM 140 mmol/L (136-145); TCO2 21 mmol/L (25-35); TOTAL BILIRUBIN 1.97 mg/dL (0.20-1.00)
[2018-10-23] MEDS ORDERED: NS 1,000 ML IV ONE (07:55)
[2018-10-23 08:06] LABS: LYMPHS 6 % (21-51); MONO 4 % (1-9); NRBC 2 % (0-0); SEGS 90 % (42-75)
[2018-10-23] MEDS: FOLIC ACID PO SCH (08:26)
[2018-10-23] MEDS: PROTONIX PO SCH (08:26)
[2018-10-23] MEDS: COLACE PO SCH ×2 (08:26→20:25)
[2018-10-23 11:04] LABS: HEPATITIS PROFILE ACUTE SEE COMMENTS
--- NOTE | 2018-10-23 14:55 | PROGRESS NOTE ---
DATE: 10/23/2018 OVERNIGHT EVENTS: She did have a temperature of 100.9 degrees. She was tachycardic, heart rate 90 to 120 per minute. Her MAPS were between 55 to 65 mmHg. She received 2 units of blood transfusion following which her hemoglobin had increased. She continues to have high bilirubin, LDH. SUBJECTIVE: She is complaining of bilateral rib cage low back pain and wanted me to address her pain. I discussed with her about low blood pressure, possible need for transfer to ICU and, considering that, I decided to not give her additional pain medications until we took care of her blood pressure first. I answered all of her questions. VITALS: Currently, temperature of 98, pulse 92 per minute, blood pressure 114/ 49 with MAP 64, saturating 100% on room air. PHYSICAL EXAMINATION: General: Does not appear in any acute distress. HEENT: Oral cavity is moist. Respiratory: Air entry bilaterally equal with inspiratory crackles on the right infrascapular region. No wheeze or rhonchi. Cardiovascular: S1, S2 normal. Tachycardic. No murmur. Abdomen: Soft, nontender. No hepatosplenomegaly that I could appreciate. Bilateral lower extremities without any edema. LABS: Suggestive of persistent leukocytosis, improving hemoglobin after blood transfusion. Continues to have high reticulocyte count, hyperchloremia, low bicarbonate, elevated total bilirubin, elevated alkaline phosphatase and LDH. MICROBIOLOGY: One of the blood cultures growing gram-negative jac. Repeat blood cultures has been ordered. ASSESSMENT AND PLAN: 1. Sepsis due to gram-negative bacteria likely source being bilateral pneumonia vs infected port. Continue intravenous cefepime. Follow up repeat blood cultures today. Continue intravenous fluid to maintain MAP more than 65. She received 1 L of bolus in the morning time. If her MAPS persistently drop, my plan is to start her on norepinephrine and transfer her to intensive care unit. 2. Bilateral pneumonia. Continue intravenous cefepime. Follow up final blood culture results. 3. Sickle cell crisis with lab evidence suggestive of reticulocytosis, elevated LDH and elevated bilirubin. Continue intravenous fluid. Hematology on board. We will continue to manage the pain through morphine intravenous and Percocet and acetaminophen. Continue home hydroxyurea and Deferasirox, folic acid. 4. Severe constipation with suspected rectal infection. Continue patient on lactulose. 5. Bilateral pneumonia with left upper lobe cavitation. Continue antibiotics as per Infectious Disease. I will order echocardiogram to rule out cardiac vegetation. On admission, she did have positive benzodiazepine and opiate screen. The patient denies, however , using intravenous drugs. DISPOSITION: The patient remains inside the hospital while we manage her sepsis. Plan of care was discussed with her. All of her questions have been answered. cc: Elijah Kowalski MD MTDD
[2018-10-23] MEDS: HYDREA PO SCH (20:25)
[2018-10-23] MEDS: PATIENT'S OWN MED PO SCH ×2 (20:27→20:28)
[2018-10-23] MEDS: LOVENOX SUBQ SCH (20:28)
--- NOTE | 2018-10-23 21:00 | INFECTIOUS DISEASE PROGRESS NO ---
DATE: 10/23/2018 PRESENT ILLNESS: The patient has a gram-negative jac bacteremia which I think could have originated from her Port-A-Cath. She has a multifocal pneumonia with some areas having cavitation. This would be suggestive of the patient having tricuspid valve endocarditis with septic emboli to the lungs. MEDICATIONS: The patient is on cefepime 2 g IV every 8 hours pending culture results. PHYSICAL EXAMINATION: Vital Signs: Temperature is 98, pulse 90, respirations 16, blood pressure 120/60. General: This is a somewhat ill-appearing young female. She is in no acute distress. Head, Eyes, Ears, Nose and Throat: She can hear my spoken words and see near objects. She does not have any white coating on her tongue. Neck: No meningismus. Thorax: Patient's Port-A- Cath site is not swollen or tender. Lungs: Clear to auscultation. Cardiovascular: Regular heart rate without murmur. Abdomen: Soft and nontender. Neurologic: Patient is alert. She can move her extremities. There is no tremor. LAB AND X-RAY: CBC shows a white count of 21,780, hemoglobin 6.5 and platelet count 171,000. Creatinine is 0.4. GFR is greater than 60. Alkaline phosphatase is 124. Blood cultures are growing gram-negative rods. Repeat blood cultures are pending. Urine cultures negative. CT scan showed multifocal infiltrates with possible cavitation. ASSESSMENT AND PLAN: The patient has gram-negative jac bacteremia. Continue cefepime pending culture results. Dr. Kowalski has already ordered an echocardiogram. If it appears that the Port-A- Cath is infected, then it will have to be removed. If it shows that the patient has tricuspid valve endocarditis the Mcmanus catheter will definitely need to be removed and the patient will require at least 6 weeks of IV antibiotic therapy. COMORBIDITIES: She does have sickle cell disease. Unfortunately, also, I think she uses illicit drugs and some of them may be done intravenously through her Port-A-Cath. cc: Audi Castellanos MD MTDD
[2018-10-24] MEDS: MORPHINE IV PRN ×5 (01:49→21:15)
[2018-10-24] MEDS: DUONEB (A & A) INH SCH ×4 (03:00→21:44)
[2018-10-24] MEDS: PERCOCET-5 PO PRN ×2 (04:31→12:20)
[2018-10-24] MEDS: MAXIPIME 2 GM in NS 100 ML IV SCH ×2 (04:33→12:20)
[2018-10-24] MEDS: NS 1,000 ML IV SCH ×3 (04:33→21:13)
[2018-10-24 07:38] LABS: BASO# 0.03 X1000 (0.0-0.2); BASO% 0.2 % (0.0-0.8); HEMATOCRIT 21.3 % (37.0-47.0); HEMOGLOBIN 6.7 g/dL (12.0-16.0); MCH 26.2 PG (27-31); MCHC 31.5 g/dL (33-37); MCV 83.2 FL (81-99); PLT 150 X1000 (130-400); RBC 2.56 XMIL (4.2-5.4); RDW 20.2 % (11.5-14.5); RETIC% 12.24 % (0.8-2.1); RETIC-HE 19.8 PG (28.2-36.6); WBC 15.17 X1000 (4.8-10.8)
[2018-10-24 07:57] LABS: EOS 2 % (1-10); LYMPHS 4 % (21-51); NRBC 6 % (0-0); SEGS 94 % (42-75)
[2018-10-24 08:29] LABS: AGAP 13; ALKALINE PHOSPHATASE 121 U/L (32-104); BUN 5 mg/dL (8-22); CHLORIDE 106 mmol/L (98-107); COSMO 273; CREATININE 0.4 mg/dL (0.5-0.9); ESTIMATED GFR > 60; GLUCOSE 105 mg/dL (70-104); GOT 36 U/L (10-30); GPT 24 U/L (10-36); POTASSIUM 3.5 mmol/L (3.5-5.1); SODIUM 138 mmol/L (136-145); TCO2 19 mmol/L (25-35); TOTAL BILIRUBIN 1.54 mg/dL (0.20-1.00)
[2018-10-24] MEDS: COLACE PO SCH ×2 (10:45→21:16)
[2018-10-24] MEDS: PROTONIX PO SCH (10:46)
[2018-10-24] MEDS: FOLIC ACID PO SCH (10:46)
--- NOTE | 2018-10-24 13:08 | ECHO REPORT ---
ORDER DATE: 10/23/2018 ECHOCARDIOGRAPHIC MEASUREMENTS: 1. Interventricular septum 0.8. 2. Left ventricular posterior wall 0.8. 3. Diastolic diameter 5.0. 4. Left ventricular systolic diameter 3.2. SUMMARY: 1. Aortic valve leaflets are trileaflet. 2. Tricuspid valve was normal. 3. Mitral valve was normal. 4. Pulmonic valve was normal. 5. Catheter tip was noted in the right atrium. 6. Normal left ventricular cavity size. Estimated ejection fraction of 65%. 7. Aortic valve leaflets are trileaflet. 8. There is no aortic stenosis or regurgitation. 9. There is trace to mild mitral regurgitation. 10. There is moderate tricuspid regurgitation. Peak velocity across the tricuspid valve was 2.8 m/sec. 11. Pulmonary artery systolic pressure of 45 mmHg. 12. There is no pericardial effusion or obvious intracardiac mass or thrombus seen. cc: MD Elijah York MD
[2018-10-24] MEDS: MYCELEX TROCHE PO SCH ×2 (17:00→21:16)
[2018-10-24] MEDS ORDERED: MORPHINE IV PRN (17:22)
[2018-10-24] MEDS ORDERED: VERSED ONE (17:24)
[2018-10-24] MEDS ORDERED: NS 1,000 ML IV SCH (17:30)
[2018-10-24] MEDS ORDERED: DUONEB (A & A) INH ONE (18:50)
[2018-10-24] MEDS: DILAUDID ONE ×5 (18:53→21:13)
[2018-10-24] MEDS ORDERED: DILAUDID IV PRN (19:45)
[2018-10-24] MEDS ORDERED: ZOFRAN ONE (19:51)
[2018-10-24] MEDS ORDERED: PHENERGAN ONE (19:51)
--- NOTE | 2018-10-24 20:16 | Diag Imaging Result Doc PS360 ---
CHEST-PORTABLE - 10/24/2018 INDICATION: POST OP COMPARISON: 10/22/2018 FINDINGS: There has been removal of the right chest port. There is a new left central line in good position with the catheter tip at the cavoatrial junction. There is cardiomegaly and pulmonary vascular congestion. There are small bilateral pleural effusions that have worsened since prior. There is central pulmonary edema. IMPRESSION: No complication from the procedure. Worsening small pleural effusions. Cardiomegaly and pulmonary edema. Electronically signed by Errol Curiel 10/24/2018 8:14 PM
--- NOTE | 2018-10-24 20:32 | INFECTIOUS DISEASE PROGRESS NO ---
DATE: 10/24/2018 PRESENT ILLNESS: The patient has a Klebsiella bacteremia which I think originated from her right- sided Port-A-Cath. She also has multifocal pneumonia which is due to the bacteremia that the patient had. The organism has been identified as Klebsiella susceptible to all antibiotics except ampicillin. MEDICATIONS: Currently, the patient is getting cefepime 2 g IV every 8 hours. PHYSICAL EXAMINATION: Vital Signs: Temperature maximum was 100 now it is 99, pulse 71, respirations 14, blood pressure 120/60. General: This is a somewhat ill-appearing young female. She is in no acute distress, however. Head/eyes/ears/nose/throat: She can hear my spoken words and see near objects. She does look like she has some white coating on the tongue which to me I think is due to candidiasis. Neck: No meningismus. Thorax: The patient's Port-A-Cath site is not swollen or tender. Lungs: Clear to auscultation. Cardiovascular: Heart rate is regular. I did not hear any murmurs. Abdomen: Soft and nontender. Neurologic: Patient is alert. She can move her extremities. There is no tremor. LABORATORY AND X-RAY: As mentioned above, the patient's blood culture is growing Klebsiella. The patient's CBC shows a white count of 15,170, hemoglobin 6.7, and platelet count 150,000. Creatinine 0.4. GFR is greater than 60. HIV antibodies are negative and hepatitis panel is nonreactive. Repeat blood cultures are pending. ASSESSMENT AND PLAN: Patient has Klebsiella bacteremia with an associated pneumonia and I think it all originated from her Port-A-Cath. I think the Port-A-Cath needs to be removed. I have put in a consult for Dr. Ayala to remove the patient's Port-A-Cath. I have switched the patient from cefepime to p.o. Levaquin. Some of the side effects of Levaquin including rash, diarrhea, seizures and tendon rupture have been explained to the patient. She agrees with treatment. I have started the patient on Mycelex troches. The patient appears to have Casie mucositis. I am going to go ahead and start her on Mycelex troches. COMORBIDITIES: The patient has sickle cell disease and has had Port-A-Cath in the past because of need for pain medicine during her sickle cell crisis. Also the patient unfortunately is noncompliant and may be tampering with her Port-A-Cath. cc: Audi Castellanos MD
[2018-10-24] MEDS: PATIENT'S OWN MED PO SCH ×2 (21:16)
[2018-10-24] MEDS: LOVENOX SUBQ SCH (21:16)
[2018-10-24] MEDS: HYDREA PO SCH (21:35)
--- NOTE | 2018-10-24 22:01 | PROGRESS NOTE ---
DATE: 10/24/2018 Interval history. Patient did not have any fever spikes. Her blood pressure was well controlled. I was informed by the nursing team that the patient and her mother were concerned about her inadequate pain control. OBJECTIVE: At this time patient is in OR for port removal. I checked patient' s room twice. I could not see her. I also went to PACU however patient was not there either. Review of vitals suggest temperature of 98.8 degrees, no more fever episode, pulse of 72, blood pressure of 123/80, saturation of 96% on room air. PHYSICAL EXAMINATION: Yesterday she did not appear in acute distress. Oral cavity moist, air entry bilateral equal with inspiratory crackles in the right infrascapular region. No wheeze or rhonchi.Cardiovascular: S1, S2 normal. Tachycardic. No murmur or gallop. Abdomen: Soft, nontender. No hepatosplenomegaly. Bilateral lower extremity TODAY: She is crying in pain. C/o pain in chest and back. Oral cavity moist. good cough. RS: AEBE, no wheeze or rhonci. Cardio: S1 S2 normal. tachycardic with heart rate of 107, no murmur rub or gallop. Right chest has a big dressing of port removal. Abdomen: Soft, non tender Neurologica: ALert and oriented. LABS: Today suggest improving leukocytosis, hemoglobin of 6.7, platelet of 150, 000, normal electrolytes except low bicarbonate, low BUN, creatinine, improving total bilirubin, direct bilirubin and reticulocyte count. Microbiology repeat blood culture has not shown any growth. Previous blood culture was growing Klebsiella pneumoniae sensitive to levofloxacin. ASSESSMENT AND PLAN: 1. Sepsis due to Klebsiella pneumoniae. Potential sources could be bilateral pneumonia versus infected port. Infectious Disease on board. Change antibiotics to p.o. levofloxacin. She is getting her port removed. Follow up repeat blood culture results. Decrease intravenous fluid rate as her blood pressures are better. 2. Bilateral pneumonia. Continue p.o. levofloxacin, likely due to Klebsiella pneumonia. 3. Sickle cell crisis with lab evidence suggestive of reticulocytosis, elevated LDH, elevated bilirubin. Continue intravenous fluids, for pain management continue intravenous morphine her home dose of [place] and acetaminophen. I will add home fentanyl if her blood pressure tolerates tomorrow, continue home hydroxyurea and deferasirox with folic acid. 4. Normocytic anemia because of sickle cell crisis, since admission she is status post 2 units of packed red blood cells, continue to monitor CBC. 5. Severe constipation with suspected rectal impaction, continue patient on lactulose. The patient had 2 bowel movements today so far. 6. Others, follow up echocardiogram to rule out any vegetation. 7. Substance use disorder, patient was counseled about not using of recreational substances. She however denied using them either. 8. Disposition. Patient remains inside the hospital as we await final blood culture results to turn back negative following which we will plan discharging her. I anticipate discharge over the weekend or early next week. Plan of care were discussed with Infectious Disease doctor. cc: Elijah Kowalski MD MTDD
[2018-10-24] MEDS: NORCO-10 PO PRN (23:20)
[2018-10-25] MEDS: MORPHINE IV PRN ×6 (01:17→22:50)
[2018-10-25] MEDS: MYCELEX TROCHE PO SCH ×4 (01:17→21:38)
[2018-10-25] MEDS: NORCO-10 PO PRN ×5 (03:30→21:35)
--- NOTE | 2018-10-25 03:57 | OPERATIVE NOTE ---
PROCEDURE DATE: 10/24/2018 DIAGNOSIS: Sickle cell anemia, with port sepsis. PROCEDURE: Placement of left subclavian triple-lumen catheter. Removal of infected right subclavian PowerPort. DESCRIPTION OF PROCEDURE: The patient was brought to the operating room. After satisfactory induction of IV and endotracheal anesthesia, both chest and neck were prepped and draped in the appropriate manner. Initially, the left subclavian vein area was infiltrated with Xylocaine. The vein was accessed through the old scar from previous port. Guidewire was threaded down the superior vena cava and right atrial junction, with no evidence of pneumothorax. She does have bilateral infiltrates on her chest x-ray. The dilator was used. The triple-lumen catheter was threaded down. The superior vena cava and right atrial junction flushed with heparinized saline, and anchored with 3-0 nylon suture. Sterile dressing was applied. Attention was then taken to the right side. The old scar for the existing port was excised, and the port was removed intact. There was minimal backbleeding. The wound was irrigated with peroxide. There was no gross purulence seen. The skin was closed with stainless steel clips. Sterile dressing was applied to this area as well. The patient was subsequently awakened and extubated in the operating room, and transferred to recovery. ESTIMATED BLOOD LOSS: About 10 mL. cc: Ganga Ayala MD
[2018-10-25] MEDS: NS 1,000 ML IV SCH ×3 (05:12→15:34)
[2018-10-25] MEDS: DUONEB (A & A) INH SCH ×3 (06:25→15:11)
[2018-10-25] MEDS: PROTONIX PO SCH (09:56)
[2018-10-25] MEDS: FOLIC ACID PO SCH (09:56)
[2018-10-25] MEDS: COLACE PO SCH ×2 (09:56→21:35)
[2018-10-25 10:05] LABS: AGAP 12; ALB/GLOB RATIO 0.9; ALKALINE PHOSPHATASE 129 U/L (32-104); BUN 4 mg/dL (8-22); CALCIUM 8.2 mg/dL (8.8-10.2); CHLORIDE 107 mmol/L (98-107); COSMO 278; CREATININE 0.3 mg/dL (0.5-0.9); ESTIMATED GFR > 60; GLUCOSE 95 mg/dL (70-104); GOT 22 U/L (10-30); GPT 18 U/L (10-36); POTASSIUM 3.2 mmol/L (3.5-5.1); SODIUM 141 mmol/L (136-145); TCO2 22 mmol/L (25-35); TOTAL BILIRUBIN 1.42 mg/dL (0.20-1.00); TOTAL PROTEIN 6.5 g/dL (6.3-8.3)
[2018-10-25 10:07] LABS: BASO# 0.03 X1000 (0.0-0.2); BASO% 0.3 % (0.0-0.8); EOS# 0.15 X1000 (0.0-0.7); EOS% 1.3 % (0.0-10.0); HEMATOCRIT 22.2 % (37.0-47.0); HEMOGLOBIN 7.1 g/dL (12.0-16.0); IMM GRAN# 0.03 X1000 (0.0-0.04); IMM GRAN% 0.3 % (0.0-0.5); LYMPH# 2.24 X1000 (1.2-3.4); LYMPH% 19.7 % (20.5-51.1); MCH 26.3 PG (27-31); MCV 82.2 FL (81-99); MONO# 0.53 X1000 (0.11-0.59); MONO% 4.7 % (1.7-9.3); NEUT# 8.39 X1000 (1.4-6.5); NEUT% 73.7 % (42.2-75.2); PLT 193 X1000 (130-400); RDW 20.8 % (11.5-14.5); RETIC% 7.74 % (0.8-2.1); RETIC-HE 23.4 PG (28.2-36.6); WBC 11.37 X1000 (4.8-10.8)
[2018-10-25 10:24] LABS: EOS 2 % (1-10); LYMPHS 14 % (21-51); NRBC 7 % (0-0); SEGS 84 % (42-75)
[2018-10-25 10:25] LABS: ANISOCYTOSIS 1+; HYPOCHROM 1+; POIKILOCYTOSIS 1+; SICKLE CELLS OCCASIONAL; TARGET CELLS 1+
--- NOTE | 2018-10-25 11:40 | Diag Imaging Result Doc PS360 ---
CHEST-1 VIEW - 10/25/2018 INDICATION: post op COMPARISON: 10/24/2018 FINDINGS: Stable left central line in good position. Stable bilateral infiltrates. Stable cardiomegaly. There is a small right pleural effusion. No pneumothorax. IMPRESSION: Small right pleural effusion. Otherwise no change from prior. Electronically signed by Errol Curiel 10/25/2018 11:37 AM
[2018-10-25] MEDS: LEVAQUIN PO SCH (13:14)
[2018-10-25] MEDS: KLOR-CON PO SCH ×2 (15:34→18:39)
[2018-10-25] MEDS ORDERED: VANCOMYCIN IV PER PHARMACY MISC SCH (16:00)
[2018-10-25] MEDS: ZYVOX PO SCH (17:03)
[2018-10-25] MEDS: HYDREA PO SCH (21:35)
[2018-10-25] MEDS: LOVENOX SUBQ SCH (21:38)
[2018-10-25] MEDS: PATIENT'S OWN MED PO SCH ×2 (23:16→23:17)
--- NOTE | 2018-10-26 01:28 | PROGRESS NOTE ---
DATE: 10/25/2018 INTERVAL HISTORY: Yesterday, I was paged by the anesthesia doctor at evening time, that after port removal and extubation, the patient was coughing. Though her saturations were normal, she was in excruciating pain. She had received 4 mg of intravenous hydromorphone and ketamine. Despite that, she kept on crying, and I was immediately paged that the patient will possibly need ICU. When I evaluated the patient, the patient was awake, alert. She was crying in pain and sobbing. She was saturating 96 to 98% on 3 L nasal cannula, and she was normotensive. I had decided to keep the patient on the floor itself. The patient's mother was at bedside, and I had answered all of her questions extensively about the patient's medical course. SUBJECTIVE: Today, the patient is lying in the bed. When I ask her to sit up, she states she will not be able to do that, and she starts crying. VITALS: Temperature 99.4 degrees, pulse 85 per minute, blood pressure 117/63, saturation 100% on room air to nasal cannula. PHYSICAL EXAMINATION: General: Appears depressed, and has a flat affect. HEENT: Conjunctival pallor. Oral cavity is moist. Slight bilateral tonsillar enlargement, without any exudates. Neck: No cervical lymphadenopathy. Lungs: Air entry bilaterally equal. No wheeze, rhonchi. Mild crackles at bilateral inframammary region. However, the examination is limited, considering her body position and her not being able to sit up. Cardiovascular: S1, S2 normal. No murmur, rub, or gallop. Not tachycardic. Abdomen: Soft. Mild splenomegaly. Nontender. No lower extremity edema. LABS: Today, suggestive of improving leukocytosis, hemoglobin of 7.1, platelet count of 193,000. Reticulocyte of 7.7. Electrolytes suggestive of hypokalemia, normal kidney function, consistently decreasing bilirubin. Microbiology: One of the blood cultures was growing Klebsiella pneumoniae, sensitive to levofloxacin. Repeat blood cultures have been negative. ASSESSMENT AND PLAN: 1. Sepsis due to Klebsiella pneumoniae and right-sided port infection. The patient's antibiotic has been changed to p.o. levofloxacin. First day of negative blood culture is 10/23/2018. The patient would require at least 2 weeks of antibiotics. Appreciate ID recommendation about antibiotic dosing. Previously, echocardiogram had ruled out any intracardiac vegetations. 2. Bilateral pneumonia, predominantly on the right lower lobe. Continue p.o. levofloxacin. Likely, due to Klebsiella pneumoniae pneumonia. 3. Suspected right-sided chest port infection, considering her Gram negative bacteremia, status post removal. She now has left-sided chest central line for intravenous access. 4. Sickle cell crisis, with reticulocytosis, elevated LDH, elevated bilirubin. Decrease intravenous fluids, considering bilateral pulmonary edema, and potentially stop it. Continue intravenous morphine and home dose of [place], with acetaminophen. Continue home hydroxyurea and deferasirox, with folic acid. 5. Normocytic anemia because of sickle cell crisis. Since admission, she is status post 2 units of packed red blood cells. Continue to monitor CBC. Continue folic acid. 6. Severe constipation. I suspect a rectal impaction. Continue lactulose. 7. Suspected polysubstance use disorder. Patient was counseled about not using any recreational substances, tobacco, or alcohol consistently. 8. Disposition. I am awaiting further improvement in her reticulocyte count. At that point, I will consider discharging her home. Physical therapy has been ordered, as the patient has been bed-bound. I explained to her in the presence of her mother that because of her history of sickle cell disease, her pain may not go away completely. However, it is of utmost importance for her to come out of bed, sit in the chair, and do physical activity in order to get healthier. Plan of care was discussed with her. All of her questions have been answered. cc: Elijah Kowalski MD
[2018-10-26] MEDS: NORCO-10 PO PRN ×5 (01:45→21:20)
[2018-10-26] MEDS: MYCELEX TROCHE PO SCH ×6 (02:53→21:22)
[2018-10-26] MEDS: ZYVOX PO SCH ×2 (03:25→16:50)
[2018-10-26] MEDS: MORPHINE IV PRN ×3 (03:25→12:32)
[2018-10-26] MEDS: DUONEB (A & A) INH SCH ×4 (05:49→22:29)
[2018-10-26] MEDS: LEVAQUIN PO SCH (09:09)
[2018-10-26] MEDS: COLACE PO SCH ×2 (09:09→21:20)
[2018-10-26] MEDS: FOLIC ACID PO SCH (09:09)
[2018-10-26] MEDS: PROTONIX PO SCH (09:09)
--- NOTE | 2018-10-26 15:08 | PROGRESS NOTE ---
DATE: 10/26/2018 INTERVAL HISTORY: No events overnight. Her fluids were stopped. I again encouraged her to come out of bed, sit in the chair. She said she the only thing she has been doing has been coming out of the bed and sitting on the commode. I encouraged her to do physical activity. OBJECTIVE: Vital Signs: Temperature 98.1 degrees, pulse 60 per minute, blood pressure 115/60, respiratory rate 14 per minute, saturating 98% on room air. General: She is in the bed, sleeping. I encouraged her to keep away during the daytime and engage in physical activity. HEENT: Conjunctival pallor. Oral cavity moist. Slight bilateral tonsillar enlargement without any exudate. Neck: No cervical lymphadenopathy. Respiratory: Air entry bilaterally equal. No wheeze or rhonchi. Mild inframammary crackles. Cardiovascular: S1, S2 normal. No murmur, rub, or gallop. Not tachycardic. Abdomen: Soft abdomen. Mild splenomegaly. Nontender. Extremities: No lower extremity edema. LABS: No new labs today. Previous blood cultures, 1 of the blood cultures drawn on October 23 is growing gram-positive cocci. However, the second blood culture is negative. ASSESSMENT AND PLAN: 1. Sepsis due to Klebsiella pneumoniae from right-sided port infection leading to bilateral pneumonia with septic emboli. Continue p.o. levofloxacin. First day of negative blood culture is likely October 23. I will follow up with 1 of the 2 blood cultures that is growing gram-positive cocci on October 23. Continue p.o. linezolid until final culture and sensitivity. Previously, echocardiogram had ruled out any intracardiac vegetations. 2. Bilateral pneumonia, predominantly on the right side, due to Klebsiella pneumoniae. Plan as mentioned above. 3. Right-sided chest port infection, some Klebsiella pneumoniae, status post removal. Now she has left-sided chest central line for intravenous access. 4. Sickle cell crisis with reticulocytosis, elevated LDH, elevated bilirubin, now improving significantly. I stopped intravenous morphine today. Continue home [place] with acetaminophen. Continue home hydroxyurea, deferasirox, and folic acid. 5. Normocytic anemia because of sickle cell crisis. She is status post 2 PRBCs since admission. Continue folic acid and monitoring of CBC. 6. Severe constipation. Continue lactulose. 7. Polysubstance abuse. The patient was counseled about not using recreational substances, tobacco, or alcohol consistently during this hospital admission and repeatedly. 8. Disposition. I am awaiting final blood culture results of October 23, 1 of which is growing gram-positive cocci. If the final result comes back, I will have physical therapy evaluate the patient, help her come out of bed and walk, and at that point, I will consider discharging her home. Plan of care was discussed with her. All of her questions have been answered satisfactorily. cc: Elijah Kowalski MD MTDD
[2018-10-26] MEDS: CUBICIN 500 MG in NS 100 ML IV SCH (16:44)
--- NOTE | 2018-10-26 17:34 | INFECTIOUS DISEASE PROGRESS NO ---
DATE: 10/26/2018 PRESENT ILLNESS: The patient had a Klebsiella bacteremia which I think originated from her right- sided Port-A-Cath. She also has a multifocal pneumonia, which I think again is due to the fact that the patient had a Klebsiella bacteremia. More recently now on the patient' s repeat blood cultures, there is nothing that grew. However on a Gram stain of one of the blood cultures, gram- positive cocci were seen but as of yet, they have not grown out. Therefore, the patient may have another bacteremia which has not grown out yet and this bacteremia also could have involved the lungs. MEDICATIONS: Currently the patient is on Levaquin and yesterday was put on Zyvox. PHYSICAL EXAMINATION: Vital Signs: Temperature is 99 degrees, pulse 103, respirations 14, blood pressure 125/65. General: This is a somewhat ill-appearing young female. She is in no acute distress. Head/eyes/ears/nose/throat: She can hear my spoken words and see near objects. She had some white coating of her tongue but this has gotten better since Mycelex was started. Neck: No meningismus. Thorax: The patient's Port-A-Cath was removed and the site on the right side the chest has a large dressing over it. The dressing is intact. Patient on the left side of her chest has an IV and that site is not swelling or draining. Abdomen: Soft and nontender. Lungs: Clear to auscultation. Neurologic: Patient is alert. She can move her extremities. She can hear my spoken words and see near objects. LAB AND X-RAY: Chest x-ray shows bilateral infiltrates. Echocardiogram showed no vegetations. As mentioned above, the patient initially had blood cultures positive for Klebsiella. Repeat blood cultures are not growing anything but one of them on Gram stain showed gram-positive cocci. The patient's CBC from yesterday shows a white count of 11,370, hemoglobin 7.1 , and platelet count 193,000. The patient's creatinine is 0.3. GFR is greater than 60. The patient's alkaline phosphatase is 129 and her bilirubin is down to 1.42. The patient's chest x- ray shows bilateral infiltrates. ASSESSMENT AND PLAN: The patient has Klebsiella bacteremia and most likely Klebsiella involving the lung as a pneumonia. The patient now has a gram-positive coccus in 1 blood culture. It is seen on Gram stain but is not growing, but it too could have caused a pneumonia hematogenously. The patient cannot take vancomycin. She has been put on daptomycin to deal with the gram-positive coccal positive blood culture. The organism could be a staph or strep or an Enterococcus. I am also adding back Zyvox because if the patient's lung became infected from the gram-positive coccus then Zyvox would be needed because the patient is on daptomycin to cover the bacteremia. However, it does not cover a pulmonary infection because there is a low concentration of daptomycin in the lung. COMORBIDITIES: She has sickle cell disease and requires having a long-term IV catheter in place for medication. cc: Audi Castellanos MD MTDD
[2018-10-26] MEDS: HYDREA PO SCH (21:20)
[2018-10-26] MEDS: LOVENOX SUBQ SCH (21:22)
[2018-10-26] MEDS: PATIENT'S OWN MED PO SCH ×2 (21:24)
[2018-10-27] MEDS: NORCO-10 PO PRN ×6 (00:59→23:03)
[2018-10-27] MEDS: DUONEB (A & A) INH SCH ×4 (05:19→21:00)
[2018-10-27] MEDS: MYCELEX TROCHE PO SCH ×5 (05:52→20:27)
[2018-10-27] MEDS: ZYVOX PO SCH ×2 (05:53→15:44)
[2018-10-27 07:26] LABS: BASO# 0.02 X1000 (0.0-0.2); BASO% 0.2 % (0.0-0.8); EOS# 0.21 X1000 (0.0-0.7); EOS% 2.5 % (0.0-10.0); HEMOGLOBIN 8.2 g/dL (12.0-16.0); IMM GRAN# 0.03 X1000 (0.0-0.04); IMM GRAN% 0.4 % (0.0-0.5); LYMPH# 2.25 X1000 (1.2-3.4); LYMPH% 26.7 % (20.5-51.1); MCHC 31.5 g/dL (33-37); MCV 82.5 FL (81-99); MONO# 0.49 X1000 (0.11-0.59); MONO% 5.8 % (1.7-9.3); MPV 8.5 FL (7.4-10.4); NEUT# 5.43 X1000 (1.4-6.5); NEUT% 64.4 % (42.2-75.2); PLT 303 X1000 (130-400); RBC 3.15 XMIL (4.2-5.4); RDW 21.4 % (11.5-14.5); WBC 8.43 X1000 (4.8-10.8)
[2018-10-27 08:00] LABS: LYMPHS 36 % (21-51); SEGS 62 % (42-75)
[2018-10-27 08:01] LABS: ANISOCYTOSIS 2+; HYPOCHROM 2+
[2018-10-27 08:02] LABS: POIKILOCYTOSIS 2+
[2018-10-27 08:03] LABS: HOWELL-JOLLY BODIES 1+; SICKLE CELLS 1+; TARGET CELLS 1+
[2018-10-27 08:24] LABS: AGAP 10; ALBUMIN 3.1 g/dL (3.5-5.0); ALKALINE PHOSPHATASE 124 U/L (32-104); BUN 7 mg/dL (8-22); CALCIUM 8.6 mg/dL (8.8-10.2); CHLORIDE 108 mmol/L (98-107); COSMO 283; CREATININE 0.4 mg/dL (0.5-0.9); ESTIMATED GFR > 60; GLUCOSE 92 mg/dL (70-104); GOT 12 U/L (10-30); GPT 11 U/L (10-36); POTASSIUM 3.6 mmol/L (3.5-5.1); SODIUM 143 mmol/L (136-145); TCO2 25 mmol/L (25-35); TOTAL BILIRUBIN 1.03 mg/dL (0.20-1.00); TOTAL PROTEIN 6.3 g/dL (6.3-8.3)
--- NOTE | 2018-10-27 08:44 | Diag Imaging Result Doc PS360 ---
EXAM: CHEST-2 VIEWS HISTORY: PNA TECHNIQUE: Chest two views COMPARISON: 10/25/2018 FINDINGS: No change in the left subclavian portacatheter. No pneumothorax. Skin ely overlie the right chest. There are small bilateral pleural effusions. These are smaller than on the prior exam. Mild cardiomegaly remains. Pulmonary edema is less pronounced. There is basilar atelectasis with infiltrates. IMPRESSION: Overall interval improvement. Electronically signed by Sahil Solitario 10/27/2018 8:41 AM
[2018-10-27] MEDS: LEVAQUIN PO SCH (09:11)
[2018-10-27] MEDS: FOLIC ACID PO SCH (09:11)
[2018-10-27] MEDS: PROTONIX PO SCH (09:11)
[2018-10-27] MEDS: COLACE PO SCH ×2 (09:11→20:24)
[2018-10-27] MEDS ORDERED: LASIX PO ONE (13:15)
--- NOTE | 2018-10-27 14:28 | CONSULTATION ---
DATE OF CONSULTATION: 10/27/2018 HISTORY OF PRESENT ILLNESS: Ms Henley is a 23-year-old female who has had multiple instances of sickle cell crisis. She was last admitted about 3 months ago. She came to the emergency department today, complaining of shortness of breath, cough, fever , chills, and left shoulder pain. She was found to be in a sickle cell crisis in the emergency department and admitted for pain control. A chest x-ray was also performed, and they found bilateral pneumonia. REVIEW OF SYSTEMS: The patient was examined and a 14 point review of systems was performed and all the pertinent positives were listed in the HPI. ALLERGIES: She is allergic to Demerol, vancomycin, and Lasix. HOME MEDICATIONS: She reports she uses a fentanyl patch for pain. FAMILY HISTORY: Positive for thyroid disease, hypertension, and sickle cell disease. SOCIAL HISTORY: She reports intermittent use of marijuana. She denies alcohol or other illicit drugs. PAST SURGICAL HISTORY: 1. Cholecystectomy. 2. Multiple port placements. DIAGNOSTIC STUDIES: White blood cells 8.43, hemoglobin 8.2, hematocrit 26, percent reticulocytes 10.6. Sodium 143, potassium 3.6, chloride 108, BUN 7, creatinine 0.4, glucose is 92. Lactate dehydrogenase is 394. Alkaline phosphatase is 124. Her urine was positive for opiates and benzodiazepines. Chest x-ray showed bilateral small infiltrates. PHYSICAL EXAMINATION: General: Patient is awake and alert, sitting in the bed , playing on her phone. Vital Signs: Temperature 98.7 degrees, pulse rate 68, respiratory rate 16, blood pressure 117/62, oxygen is 98% on 2 L. HEENT: Head is normocephalic, atraumatic. Eyes are equal, round, and reactive. She is slightly pale. Neck: Supple. Chest: There is equal chest expansion and rise and fall. There is a port on the left pectoral area. Cardiovascular: Regular rate and rhythm. Abdomen: Soft, nontender. Extremities: There is good range of motion to the left shoulder. There is a 4/5 bottom loader strength. There is no redness or signs of infection. There is some tenderness to the acromioclavicular joint. There is also some mild tenderness to the deltoid muscle. There is a negative Speed test. Neurologic: There are s no gross focal deficits. ASSESSMENT: 1. Bilateral pneumonia. 2. Sickle cell crisis. 3. Left shoulder pain with avascular necrosis. PLAN: At this point from the orthopedic standpoint, we will place patient in a sling and swath. We will follow up with her in the office in about 2 weeks for follow-up exam with Dr. Garrett. She can stay in the sling until seen in the office. If the patient starts to develop fluid in the left shoulder or redness, then we will need to aspirate the left shoulder. Thank you again for the consult. Dictated by CORRINA Lanza for Gopi Jerez MD cc: CORRINA Lanza MD MTD
--- NOTE | 2018-10-27 15:00 | PROGRESS NOTE ---
DATE: 10/27/2018 INTERVAL HISTORY: No events overnight. Patient got her chest x-ray which suggests her pulmonary vascular congestion, edema, and effusions are decreasing. However, she did have that still present. SUBJECTIVE: Patient denies any complaints. With my help, she was able to get up. I explained to her that she needs to come out of bed and walk in order to get stronger. OBJECTIVE: Vitals: Currently temperature of 98.4 degrees, pulse 69, blood pressure 127/75, respiratory rate of 16, saturating 99% on room air. General: Does not appear in any acute distress. HEENT: Marked pallor affecting conjunctivae and oral cavity with mild tonsillar enlargement without any inflammation. Lungs: Air entry bilaterally equal. No wheeze, rhonchi, or crackles. Cardiovascular: S1, S2 normal. No murmur, rub, or gallop. Abdomen: Soft, nontender. Extremities: No lower extremity edema. DIAGNOSTIC STUDIES: Suggestive of resolution of leukocytosis, hemoglobin of 8.2 , platelet of 303,000, reticulocyte count of 110, 000. . Normal kidney function. Total bilirubin of 1.03. Lactate dehydrogenase of 394. Microbiology: One of the 2 blood cultures drawn on 10/23/2018 is growing gram- positive cocci. ASSESSMENT AND PLAN: 1. Sepsis due to Klebsiella pneumoniae from right-sided port infection leading to bilateral pneumonia with septic emboli. Continue p.o. levofloxacin as per ID recommendation. First day of negative blood culture is 10/23/2018. One of the 2 blood cultures on 03/2019 is also growing gram-positive cocci. Continue patient on IV daptomycin and p.o. linezolid until final cultures come back. Infectious Disease on board. Echocardiogram had ruled out intracardiac vegetation. 2. Bilateral pneumonia, predominantly on the right side due to Klebsiella pneumoniae. Plan as mentioned above. 3. Right-sided chest port infection with Klebsiella pneumoniae, status post removal. Now she has left-sided chest central line for IV access. 4. Sickle cell crisis with reticulocytosis, elevated LDH, elevated bilirubin, now improving significantly. Continue home [place] with acetaminophen for pain management. Continue home hydroxyurea, deferasirox, and folic acid. Hematology on board. 5. Bilateral pulmonary edema with pleural effusions, likely related to volume overload, improving. I will give her a one-time dose of p.o. Lasix today. 6. Severe constipation, resolved. Continue lactulose. 7. Polysubstance abuse. The patient was counseled about stopping any form of recreational substances. DISPOSITION: Patient remains inside the hospital until the final blood culture results come back, following which the plan is to discharge her home. I repeatedly counseled her about being physically active in order to get stronger. Plan of care was previously discussed with the patient's mother, who is a surrogate decision maker. All of her questions have been answered. cc: Elijah Kowalski MD MTDD
[2018-10-27] MEDS: CUBICIN 500 MG in NS 100 ML IV SCH (16:37)
--- NOTE | 2018-10-27 17:04 | INFECTIOUS DISEASE PROGRESS NO ---
DATE: 10/27/2018 PRESENT ILLNESS: The patient has bacteremia with Klebsiella which now I am treating with Levaquin. The patient also has 1 blood culture that on Gram stain gram- positive cocci were seen but none have grown. This is day 4 of treatment since the blood cultures became negative. However, 1 of the ones on the 7th as mentioned above did not grow anything but gram-positive cocci were seen. The patient also may have developed oral candidiasis. MEDICATIONS: I plan to continue Levaquin for the patient's Klebsiella bacteremia. The patient is on daptomycin for the blood culture that had no growth but gram-positive cocci and Gram stain. The patient is on Zyvox in case the patient actually did have a bacteremia which was not picked up by culture and a it may have hematogenously infected the patient's lungs. Therefore, I put the patient also on Zyvox which will give good concentrations in the lung whereas daptomycin does not give any adequate penetration into the lung to clear up an infection. Patient also is on Mycelex troches for possible oral candidiasis. PHYSICAL EXAMINATION: Vital Signs: Temperature is 98.4 degrees, pulse 69, respirations 16, blood pressure 127/75. General: This is a fairly healthy-appearing, young female. She is in no acute distress. Head, eyes, ears, nose and throat: She can hear my spoken words and see near objects. She does not have any white patches on her tongue. Neck: No stiffness. Thorax : The patient has a dressing on the right side where the Port-A-Cath was removed. The incision has ely in it. There is no drainage from the incision and it is not tender. On the left side, there is a subclavian vein catheter and that site is not swollen or draining. Cardiovascular: Heart rate is regular. Abdomen: Soft and nontender. Neurologic: Patient is alert. She can move her extremities. There is no tremor. LAB AND X-RAY: CBC today shows a white count of 8430, hemoglobin 8.2, and platelet count 303,000. Creatinine 0.4. GFR is greater than 60. This is day 4 since the patient's blood cultures did not grow anything. However, 1 of the blood cultures that did not grow anything did have gram-positive cocci on Gram stain. ASSESSMENT AND PLAN: I plan to continue with Levaquin, Zyvox, and daptomycin. I have ordered repeat blood cultures. COMORBIDITIES: The patient has sickle cell disease and needs chronic vein access for pain medication during her sickle crisis. Unfortunately, the patient can be noncompliant and she may be tampering with her Port-A-Cath causing it to get infected prematurely. cc: Audi Castellanos MD MTDD
--- NOTE | 2018-10-27 17:24 | INFECTIOUS DISEASE PROGRESS NO ---
DATE: 10/27/2018 ADDENDUM REPORT As regarding the patient's pulmonary status for now, I plan to get repetitive chest x-rays. If the patient is making progress, I will continue the x-rays until such time as they are clear. At that time, I may get a CT scan just to make sure that there are not some lesions still present that were not picked up by a chest x-ray. cc: Audi Castellanos MD
[2018-10-27] MEDS: HYDREA PO SCH (20:23)
[2018-10-27] MEDS: LOVENOX SUBQ SCH (20:24)
[2018-10-27] MEDS: PATIENT'S OWN MED PO SCH ×2 (20:25)
[2018-10-28] MEDS: MYCELEX TROCHE PO SCH ×4 (02:11→22:50)
[2018-10-28] MEDS: NORCO-10 PO PRN ×5 (03:17→22:52)
[2018-10-28] MEDS: ZYVOX PO SCH (05:08)
[2018-10-28] MEDS: DUONEB (A & A) INH SCH ×5 (05:14→22:00)
[2018-10-28] MEDS: FOLIC ACID PO SCH (08:41)
[2018-10-28] MEDS: LEVAQUIN PO SCH (08:41)
[2018-10-28] MEDS: PROTONIX PO SCH (08:41)
[2018-10-28] MEDS: COLACE PO SCH ×2 (08:42→22:52)
--- NOTE | 2018-10-28 16:08 | INFECTIOUS DISEASE PROGRESS NO ---
DATE: 10/28/2018 PRESENT ILLNESS: Ms Henley has a Klebsiella bacteremia. She is also being treated for a gram- positive coccus growing in her 2nd set of blood cultures, as well as a possible pneumonia with bilateral infiltrates. She also has an oral candidiasis, which is improving. MEDICATIONS: She has been receiving Levaquin 750 mg by mouth daily, daptomycin 500 mg IV daily, and Zyvox 600 mg p.o. every 12 hours. She also has Mycelex [place] ordered every 6 hours. PHYSICAL EXAMINATION: Vital Signs: Temperature is 98.2 degrees, pulse rate 64 , respiratory rate 14, blood pressure 132/78, O2 saturation is 98% on room air. General: This is a fairly healthy- appearing young female. She is lying in bed on her right lateral side. Currently in no acute distress. HEENT: Atraumatic, normocephalic. Oral mucous membranes are pink and moist. She states her mouth is feeling much better. Conjunctivae are pale. Neck: Supple. Trachea is midline. Integumentary: She has a dressing in place to the right side where her Port-A-Cath has been removed. [place] to the incision are clean and dry. There is also a left subclavian triple-lumen catheter. These sites are without edema, erythema, or drainage. Cardiovascular: Heart rate is regular. Pedal and radial pulses are +2 bilaterally. Respiratory : Lung sounds are clear in the upper lobes, diminished in the bases. Abdomen: Soft, flat, nontender. Bowel sounds are active. Neurologic: She is awake, alert, oriented, and able to move around independently. LABORATORY AND X-RAY: None available today. ASSESSMENT AND PLAN: Ms Henley has what like a possible pneumonia on her chest x -ray, as well as a Klebsiella bacteremia. We will continue Levaquin for these. The first day of treatment will be her first set of sterile blood cultures, which we have yet to obtain. There was a gram-positive coccus growing on her 2nd set of blood cultures. The microbiology lab states that this is most likely a Kocuria varians, but this has not been finalized. Dr. Castellanos thinks this is may be a contaminant, so we will go ahead and discontinue her daptomycin and Zyvox and leave her on the Levaquin for now. She states her mouth is feeling back to normal. I have told her to go ahead and continue using the Mycelex [place] to prevent the thrush from returning. We are still awaiting a sterile set of blood cultures, which will be day [address] Castellanos wants some serial chest x- rays which I have ordered. COMORBIDITIES: For Ms. Henley include Sickle cell disease with need for chronic vein access, noncompliance, and narcotic abuse. Dictated by CORRINA Harris for Audi Castellanos MD This chart was documented by, CORRINA Harris and accurately reflects the services performed, treatment plan and medical decisions as attested by the providers signature Audi Castellanos MD. cc: Audi Castellanos MD [facility]ITALRowan
--- NOTE | 2018-10-28 20:03 | PROGRESS NOTE ---
DATE: 10/28/2018 INTERVAL HISTORY: No acute event overnight. SUBJECTIVE: Patient is feeling better today after a dose of Lasix yesterday. She denies any more shortness of breath. However she has not been ambulating which I again encouraged her that she should do. She denies any new complaints. I discussed about possible discharge plan tomorrow. Currently vitals temperature 98.2 degrees, pulse 64, blood pressure 130/78, saturating 98% room air. OBJECTIVE: General: Sleeping in the bed does not appear to be in acute distress. Oral cavity has tonsillar enlargement without any tonsillitis. No tonsillar exudate or pharyngeal exudate, no congestion. Air entry bilateral equal, no wheeze, rhonchi, crackles. S1, S2 normal. No murmur or gallop. Abdomen: Soft, nontender. Lower Extremities: No edema . LABS: No new labs today. ASSESSMENT AND PLAN: 1. Sepsis due to Klebsiella pneumoniae from right-sided port infection leading to bilateral pneumonia with septic emboli. Continue p.o. levofloxacin as per ID recommendation, first day of negative blood culture is October 23, 1 of the 2 blood cultures from October 23 is also growing gram-positive cocci and patient continues to be on intravenous daptomycin and p.o. linezolid until final culture results of repeat blood draw on October 27 comes back. Echocardiogram had ruled out intracardiac vegetation. 2. Bilateral pneumonia predominantly on the right lower lobe because of Klebsiella pneumonia. Plan as mentioned above. 3. Right-sided chest port infection with Klebsiella pneumonia status post removal now she has left-sided chest central line for intravenous access. 4. Sickle cell crisis with reticulocytosis, elevated LDH, elevated bilirubin now improving significantly. Continue home [facility] with acetaminophen for pain management, continue home hydroxyurea, and folic acid, hematology on board. 5. Bilateral pulmonary edema with pleural effusion likely related to volume overload improving after dose of Lasix yesterday. 6. Severe constipation resolved. 7. Polysubstance abuse, patient was counseled about stopping any form of recreational substance. 8. Flat affect with suspected anxiety or depression. Patient was counseled about following up with regular doctor for screening and initiate treatment as necessary. 9. Disposition. I am awaiting final blood culture results tomorrow. If they are negative my plan is to discharge patient home. Plan of care were discussed with her, all of her questions have been answered. cc: Elijah Kowalski MD MTDD
[2018-10-28] MEDS: PATIENT'S OWN MED PO SCH ×2 (22:51)
[2018-10-28] MEDS: HYDREA PO SCH (22:51)
[2018-10-28] MEDS: LOVENOX SUBQ SCH (22:52)
[2018-10-29] MEDS: MYCELEX TROCHE PO SCH ×3 (01:09→13:08)
[2018-10-29] MEDS: NORCO-10 PO PRN ×5 (02:52→19:11)
[2018-10-29] MEDS: DUONEB (A & A) INH SCH ×3 (06:03→16:08)
[2018-10-29 07:41] LABS: BASO# 0.01 X1000 (0.0-0.2); BASO% 0.1 % (0.0-0.8); EOS% 2.5 % (0.0-10.0); HEMATOCRIT 27.1 % (37.0-47.0); HEMOGLOBIN 8.8 g/dL (12.0-16.0); IMM GRAN# 0.02 X1000 (0.0-0.04); IMM GRAN% 0.2 % (0.0-0.5); LYMPH# 2.02 X1000 (1.2-3.4); LYMPH% 24.9 % (20.5-51.1); MCH 26.4 PG (27-31); MCHC 32.5 g/dL (33-37); MCV 81.4 FL (81-99); MONO# 0.36 X1000 (0.11-0.59); MONO% 4.4 % (1.7-9.3); MPV 8.8 FL (7.4-10.4); NEUT# 5.49 X1000 (1.4-6.5); NEUT% 67.9 % (42.2-75.2); PLT 390 X1000 (130-400); RBC 3.33 XMIL (4.2-5.4); RDW 21.4 % (11.5-14.5); RETIC% 8.42 % (0.8-2.1); RETIC-HE 27.2 PG (28.2-36.6)
--- NOTE | 2018-10-29 08:40 | Diag Imaging Result Doc PS360 ---
EXAM: CHEST-2 VIEWS 10/29/2018 HISTORY: pneumonia TECHNIQUE: PA and lateral chest COMMENT: There are patchy alveolar opacities present in the right lower lobe and there is blunting of both costophrenic angles. Compared to 10/27/2018 the opacities in the left base have almost completely cleared. IMPRESSION: Improved pneumonia and/or pulmonary edema. Bilateral pleural effusions. Electronically signed by Gary Quiñones 10/29/2018 8:38 AM
[2018-10-29 08:57] LABS: ANISOCYTOSIS 2+; LYMPHS 14 % (21-51); MONO 2 % (1-9); SEGS 84 % (42-75)
[2018-10-29 09:06] LABS: HYPOCHROM 2+; POIKILOCYTOSIS 2+
[2018-10-29 09:07] LABS: SICKLE CELLS 1+; TARGET CELLS 1+
[2018-10-29] MEDS: COLACE PO SCH (10:16)
[2018-10-29] MEDS: PROTONIX PO SCH (10:16)
[2018-10-29] MEDS: LEVAQUIN PO SCH (10:16)
[2018-10-29] MEDS: FOLIC ACID PO SCH (10:16)
[2018-10-29 11:16] LABS: AGAP 13; ALB/GLOB RATIO 0.9; ALBUMIN 3.6 g/dL (3.5-5.0); ALKALINE PHOSPHATASE 100 U/L (32-104); BUN 9 mg/dL (8-22); CALCIUM 9.2 mg/dL (8.8-10.2); CHLORIDE 102 mmol/L (98-107); COSMO 278; CREATININE 0.4 mg/dL (0.5-0.9); ESTIMATED GFR > 60; GLUCOSE 96 mg/dL (70-104); GOT 15 U/L (10-30); GPT 8 U/L (10-36); POTASSIUM 3.5 mmol/L (3.5-5.1); SODIUM 140 mmol/L (136-145); TCO2 25 mmol/L (25-35); TOTAL BILIRUBIN 0.98 mg/dL (0.20-1.00); TOTAL PROTEIN 7.4 g/dL (6.3-8.3)
[2018-10-29 15:09] VITALS: BP 138/88
--- NOTE | 2018-10-29 18:13 | DISCHARGE SUMMARY ---
ADMISSION DATE: 10/21/2018 DISCHARGE DATE: 10/29/2018 DISCHARGE DIAGNOSES: 1. Sepsis due to Klebsiella pneumoniae from right-sided infected port. 2. Bilateral pneumonia because of Klebsiella pneumoniae with septic emboli. 3. Sickle cell crisis with reticulocytosis, elevated LDH, and hyperbilirubinemia. 4. Bilateral pulmonary edema with pleural effusions related to volume overload. 5. Severe constipation with rectal fecal impaction. 6. Polysubstance abuse. 7. Flat affect with suspected depression. 8. Severe hemolytic anemia with sickle cell crisis requiring blood transfusion. 9. Bilateral, especially Left shoulder avascular necrosis. OTHER DIAGNOSES: 1. History of sickle cell disease. 2. History of polysubstance use and abuse. 3. History of multiple sickle cell crisis episodes. 4. Dependent on opioid. 5. Chronic anemia CONSULTATION DURING HOSPITALIZATION: 1. Dr. Ayala, General Surgery, for removal of infected port. 2. ]for bilateral avascular necrosis of shoulder, especially of the left shoulder. 1. Infectious Disease, Dr. Audi Castellanos. 2. [employer] Dr. Salmon. DISCHARGE MEDICATIONS: Deferasirox 500 mg at nighttime, hydroxyurea 500 mg capsules 3 capsules at nighttime, docusate sodium 100 mg b.i.d., folic acid 1 mg p.o. daily, [place] 10 mg 1 tablet p.o. q.4 h. p.r.n. for pain, lactulose 10 g p.o. b.i.d. p.r.n. for constipation, levofloxacin 750 mg p.o. daily, 8 tablets have been prescribed. The patient was advised to follow up with academic director for pain medication prescription. PHYSICAL EXAMINATION: Vitals: At the time of discharge, temperature 98.1 degrees, pulse 58 per minute, respiratory rate 18 per minute, blood pressure 138/88, saturating 100% on room air. General: Does not appear in any acute distress. HEENT: Oral cavity is moist. She has tonsillar enlargement bilaterally without any inflammation, erythema, or exudates. Neck : No cervical lymphadenopathy. Lungs: Air entry bilaterally equal. No wheeze, rhonchi, or crackles. Heart: S1, S2 normal. No murmur, rub, gallop. Abdomen: Soft, nontender. No lower extremity. Neurologic: Alert, oriented x3 with good mood and affect. LABORATORY DATA: At the time of discharge: WBC of 8000, hemoglobin of 8.8, platelet count of 390,000. Normal electrolytes with creatinine of 0.4. LDH of 308. Reticulocyte count of 8.4 percentage. IMAGING DURING HOSPITALIZATION: Chest x-ray on October 22 had detected mild interval improvement, although there was poor inspiration. Chest, abdomen, and pelvis CT on October 22 had detected multifocal infiltrates throughout both lungs with at least one exhibiting cavitation, small right-sided pleural effusion, stable splenomegaly, multifocal avascular necrosis that was stable related to sickle cell anemia. Chest x-ray on August 28 had detected improved pneumonia and/or pulmonary edema and small bilateral pulmonary effusion. HOSPITAL COURSE SUMMARY: 1. Ms. Henley is a 23-year-old female with past medical history of multiple sickle cell crisis episodes, the last one being in August 2018, who came in with complaining of 1-week history of shortness of breath with cough productive of greenish sputum, fever, and chills for about 2 days' duration with a T-max of 104 degrees Fahrenheit. She had gone to see her regular academic director Dr. Salmon, who had referred her to the emergency room after a chest film in the office was suggestive of bilateral pneumonia. She was admitted for bilateral pneumonia an d was started intravenous antibiotics. On admission, she was found to have hemoglobin of 4.9 for which she was also started on blood transfusion, and she had received a total of 2 units of blood transfusion. Because her blood cultures were growing Klebsiella pneumonia, she did have right-sided chest port for administration of intravenous fluids and medications, which appeared to be infected, considering her gram-negative bacteremia, and so it was removed and a temporary central venous catheter in the left neck was placed. The patient was continued on intravenous antibiotics for Klebsiella pneumoniae pneumonia ,and her blood cultures turn negative on October 23, following which she was started on p.o. levofloxacin. The patient will be discharged on p.o. levofloxacin to complete a total of 14 days course of levofloxacin to take care of bilateral pneumonia. 2. Sickle cell crisis. It was managed with intravenous fluids and intravenous pain medication, which very quickly was changed to only oral medications. 3. For pulmonary edema, it was thought to be related to aggressive fluid resuscitation, and she was given a dose of Lasix, following which her shortness of breath had improved, and chest x- ray suggested improvement as well. She was discharged on p.o. antibiotics and was advised to follow up with her regular doctor for her depression and anxiety screening, as well as getting pain medication prescription. COORDINATION TIME: More than 30 minutes were spent in discharging this patient. All of her questions have been answered. cc: Elijah Kowalski MD MTDD
== END 2018-10-29 19:35 | disposition home or self-care (01) | DRG 314 ==
LOC: ED 17:03 → EDIPHOLD 21:26 → SUATTDRO 21:26 → 3N 10-22 14:41
PROVIDERS: ATTEND Internal Medicine
CPT/HCPCS: 36430; 71010; 71020; 71045; 71046; 71260; 74177; 77001; 80048; 80053; 80074; 80076; 80101; 80301; 80307; 80324; 80345; 80346; 80353; 80358; 80361; 80365; 81001; 81025; 82550; 83605; 83615; 83992; 84484; 85025; 85045; 85610; 85730; 86701; 86850; 86900; 86901; 86920; 87040; 87077; 87088; 87186; 87275; 87276; 87389; 87804; 88300; 93306; 93308; 94640; 94761; 94799; 96361; 96365; 96366; 96367; 96372; 96375; 96376; 97110; 97162; 97530; 99285; A9270; G0431; G0434; G0479; G0480; J0131; J0692; J0878; J1170; J1200; J1650; J1885; J2250; J2270; J2405; J2550; J7030; J7040; P9016; Q9967; S0176

== ENCOUNTER 2019-09-18 06:13 | Inpatient (IN) ==
[2019-09-18] MEDS ORDERED: 1/2 NS IV ONE ×2 (06:48)
[2019-09-18] MEDS ORDERED: ZOFRAN IV ONE (08:38)
[2019-09-18] MEDS ORDERED: DILAUDID IV ONE ×2 (08:38→19:55)
--- NOTE | 2019-09-18 08:39 | PROVIDER DOCUMENTATION ---
HPI-General Adult - General Chief Complaint: Sickle Cell Crisis Stated Complaint: SICKLE CELL CRISIS,VOMITING Time Seen by Provider: 09/18/19 07:00 Source: patient Allergies/Adverse Reactions: Patient Allergies Allergy/AdvReac Type Severity Reaction Status Date / Time meperidine HCl * Allergy Severe SHORTNESS Verified 12/24/18 02:02 [From Demerol] OF BREATH; AND HEADACHE vancomycin Allergy Severe RASH Verified 12/24/18 02:02 latex Allergy Mild RASH Verified 12/24/18 02:02 Home Medications: Home Medication List Medication Instructions Recorded Confirmed Last Taken Type Folic Acid 1 mg PO DAILY #30 tablet 09/14/16 12/24/18 11/24/18 21:00 Rx Hydroxyurea [Hydrea] 3 cap PO QHS 01/01/18 12/24/18 11/24/18 21:00 History Hydrocodone/Acetaminophen [[place] 1 ea PO Q6H PRN PRN #20 tab 11/25/18 12/24/18 Unknown Rx 10-325 Tablet] Deferasirox [Jadenu] 2 tab PO QHS 12/24/18 12/24/18 Unknown History Fentanyl 12 mcg TOP Q3DAYS 12/24/18 12/24/18 Unknown History - History of Present Illness -Gen Adult Nature of Presenting Problems: Patient presents to the [facility] with complaints of sickle cell crisis. She states that this started a few days ago. She has not had a crisis in a long time. She states that last month she was transfused. She tried taking her Oxy which didnt help her. She denies fevers but endorses chest pain and shoulder pain as well as diffuse pain. Review of Systems - Adult - REVIEW OF SYSTEMS - ADULT Constitutional: reports: see HPI Eyes: reports: no symptoms reported Ears, Nose, Mouth & Throat: reports: no symptoms reported Cardiovascular: reports: see HPI, chest pain Respiratory: reports: no symptoms reported Gastrointestinal: reports: no symptoms reported, see HPI Genitourinary: reports: no symptoms reported Musculoskeletal: reports: joint pain (shoulder), muscle aches, other (diffuse pain) Integumentary: reports: no symptoms reported Neurological: reports: no symptoms reported Psychiatric: reports: no symptoms reported Endocrine: reports: no symptoms reported Hematologic/Lymphatic: reports: no symptoms reported Allergic/Immunologic: reports: no symptoms reported All Other Systems: Reviewed and Negative Past History - Adult - PAST MEDICAL HISTORY-ADULT Review of Records: reports: Old Records Reviewed Major Childhood Illnesses: reports: denies history, history unknown Cardiovascular: reports: denies history Respiratory: reports: asthma Gastrointestinal: reports: denies history Obstetrical/Gynecological: reports: denies history Genitourinary: reports: denies history Musculoskeletal: reports: chronic pain (sickle cell) Neurological: reports: Seizures/Epilepsy Psychiatric: reports: depression Endocrine/Immune: reports: Sickle Cell disease Sickle Cell Genotype:: SS Other Conditions: reports: denies history - PRIOR SURGERIES/PROCEDURES Surgical/Procedure History: reports: cholecystectomy, indwelling device - IMMUNIZATION STATUS Childhood Immunizations: See Nurse Assessment Flu Vaccine: See Nurse Assessment - FAMILY HISTORY Family History: sickle cell disease/trait Physical Exam-General - CONSTITUTIONAL General Appearance: alert, mild distress (uncomfortable appearing) - EYES Eyes: PERRL/EOMI - HEAD, EARS, NOSE, MOUTH & THROAT HENMT: normocephalic/atraumatic - NECK Neck: supple, normal inspection - RESPIRATORY Respiratory: chest non-tender, lungs clear, normal breath sounds, no respiratory distress, no accessory muscle use - CARDIOVASCULAR Cardiovascular: normal peripheral pulses, no murmur, tachycardia - GASTROINTESTINAL (ABDOMEN) Abdominal Exam: normal bowel sounds, non tender, soft - MUSCULOSKELETAL Back Exam: normal inspection Extremity: normal inspection - SKIN Integumentary: warm/dry, pallor - NEUROLOGIC Neurologic: grossly normal - PSYCHIATRIC Psych/Mental Status: normal mood/affect, oriented x 3 Progress - PLAN OF CARE/RESULTS Progress/Plan/Lab Results: Vital Signs - 8 hr 09/18/19 06:18 Temperature 98.6 F Pulse Rate 136 H Respiratory Rate 18 Blood Pressure 85/49 O2 Sat by Pulse Oximetry 98 Orders Category Date Time Status ED: Urine Bedside ORDERED Care 09/18/19 06:50 Active Urine Preg [ED: Urine Bedside] ORDERED Care 09/18/19 08:37 Active CHEST-2 VIEWS [RAD] Stat Exams 09/18/19 06:48 Ordered CBC WITH DIFF [HEME] Stat Lab 09/18/19 06:48 Uncollected COMPREHENSIVE METABOLIC PANEL [CHEM] Stat Lab 09/18/19 06:48 Uncollected RETIC COUNT [HEME] Stat Lab 09/18/19 06:48 Uncollected TROPONIN T Stat Lab 09/18/19 08:37 Uncollected URINALYSIS W/POSS RFLX CULT [URINALYSIS] Stat Lab 09/18/19 06:48 Uncollected URINALYSIS W/POSS RFLX CULT [URINALYSIS] Stat Lab 09/18/19 08:37 Uncollected Hydromorphone [Dilaudid] Med 09/18/19 08:38 Once 1 mg IV NOW ONE Ondansetron [Zofran] Med 09/18/19 08:38 Once 4 mg IV NOW ONE Sodium Chloride 0.45% Inj [1/2 Ns] 1,000 ml Med 09/18/19 08:45 Active IV 999 mls/hr Sodium Chloride 0.45% Inj [1/2 Ns] 1,000 ml Med 09/18/19 06:48 Discontinued Sodium Chloride 0.45% Inj [1/2 Ns] 1,000 ml IV 999 mls/hr Patient meets sepsis criteria but CXR has been postponed due to urine despite calling over to XR to obtain it. Trouble obtaining IV access. She appears to have a new Cr to 5.2 and her Hgb is 4.3 which is also new. Patient was typed and crossed for 2 U. Spoke will require admission. Spoke to Hospitalist TABLE ATTENDANT, who accepted patient for admission. Further orders to be placed by their team. Result Diagrams: 09/18/19 09:30 09/18/19 09:30 - EKG 1 Time of EKG reading by physician:: 10:16 EKG Read and Signed by:: Annie Wick EKG Interpretation (*Must complete 3 of following elements*): Abnormal Rate: 119 Rhythm: Sinus Tachycardia Moose: normal QRS: normal SD Interval: normal Prior EKG Comparison: unchanged from prior - CONSULTS/PCP/HOSPITALIST Notification #1 *Consult/PCP/Hospitalist*: Hospitalist Time Discussed: 11:20 Consult Disposition: Admit Departure - Departure Date of Disposition Decision: 09/18/19 Time of Disposition Decision: 11:20 DIAGNOSIS: Sickle cell pain crisis, Dehydration, Symptomatic anemia, Generalized pain, Anemia, Sepsis, RIYA (acute kidney injury), Hypotension Disposition: ADMITTED INPATIENT 09 Certified Medical Emergency: Emergent Condition: Critical Referrals and Follow-Ups: None,PCP [Primary Care Provider] - - Critical Care Note This patient required my direct & personal management of CC.: Yes Total Time (mins): 65 Critical Care Statement: This patient required my direct personal management to treat or rule out processes, the absence of which, could potentiallly result in sudden, clinically significant life or limb threatening deterioration. Attestation - Physician/ EDNA Attestation Patient care was provided by Advanced Practice Provider:: No The physician spent face to face time with patient:: Yes Advanced Practice Provider documentation review:: Supervising physician onsite and consulted in the evaluation and care of this patient. The physician did have a face to face encounter with the patient.
[2019-09-18] MEDS ORDERED: 1/2 NS 1,000 ML IV SCH (08:45)
[2019-09-18] MEDS ORDERED: ZOSYN 3.375 GM in NS 50 ML IV ONE (09:48)
[2019-09-18] MEDS ORDERED: NS 500 ML IV ONE (09:54)
[2019-09-18 10:18] LABS: HEMATOCRIT 13.3 % (37.0-47.0); HEMOGLOBIN 4.6 g/dL (12.0-16.0); MCH 26.6 PG (27-31); MCHC 34.6 g/dL (33-37); MCV 76.9 FL (81-99); MPV 9.3 FL (7.4-10.4); PLT 131 X1000 (130-400); RBC 1.73 XMIL (4.2-5.4); RDW 16.3 % (11.5-14.5); RETIC% 3.92 % (0.8-2.1); RETIC-HE 23.8 PG (28.2-36.6); WBC 28.53 X1000 (4.8-10.8)
[2019-09-18] MEDS ORDERED: 1/2 NS 1,000 ML ONE (10:32)
[2019-09-18 10:56] LABS: INR 2.2
[2019-09-18 10:57] LABS: PTT 51.2 Seconds (22.3-41.8)
[2019-09-18 10:58] LABS: ALB/GLOB RATIO 0.9; ALBUMIN 3.4 g/dL (3.5-5.0); CALCIUM 7.9 mg/dL (8.8-10.2); CREATININE 5.2 mg/dL (0.5-0.9); TOTAL BILIRUBIN 5.14 mg/dL (0.20-1.00)
[2019-09-18 11:07] LABS: ANISOCYTOSIS 1+; BANDS 16 % (0-1); HYPOCHROM 2+; LYMPHS 5 % (21-51); MONO 1 % (1-9); NRBC 5 % (0-0); POIKILOCYTOSIS 2+; SEGS 77 % (42-75)
[2019-09-18 11:08] LABS: HOWELL-JOLLY BODIES 1+; LARGE PLATELETS 1+; MICROCYTOSIS 1+; SICKLE CELLS 1+; TARGET CELLS 1+
[2019-09-18] MEDS ORDERED: NS 1,000 ML IV ONE ×4 (11:31→18:36)
[2019-09-18] MEDS ORDERED: NS 150 ML IV ONE (11:32)
[2019-09-18] MEDS ORDERED: DILAUDID IV PRN (11:56)
[2019-09-18 11:59] LABS: URINE SOURCE CATH
[2019-09-18 12:06] LABS: BILIRUBIN URINE SMALL (NEGATIVE); BLOOD URINE SMALL (NEGATIVE); COLOR ORANGE; GLUCOSE URINE TRACE mg/dL (NEGATIVE); KETONE URINE NEGATIVE (NEGATIVE); LEUKOCYTES URINE TRACE (NEGATIVE); NITRITE URINE NEGATIVE (NEGATIVE); PH URINE 5.5; PROTEIN URINE 100 mg/dL (NEGATIVE); SP GRAVITY URINE 1.028; TURBIDITY URINE TURBID (CLEAR); UROBILINOGEN URINE 6 mg/dL (NORMAL)
[2019-09-18 12:15] LABS: UR EPITHELIAL CELLS >10 /HPF (<10); URINE BACTERIA NEGATIVE /HPF; URINE RBC 20-40 /HPF (<10); URINE WBC TNTC /HPF (<10)
[2019-09-18 12:23] LABS: URINE YEAST NONE SEEN
[2019-09-18 12:24] LABS: URINE CASTS NONE SEEN; URINE CRYSTALS NONE SEEN; URINE SMALL ROUND CELLS NONE SEEN
[2019-09-18 12:35] LABS: UR AMPHETAMINES QUAL NONE DETECTED (NONE DETECT); UR BARBITUATES QUAL NONE DETECTED (NONE DETECT); UR BENZODIAZEPIN QUAL NONE DETECTED (NONE DETECT); UR CANNABINOIDS QUAL PRESUMPTIVE POSITIVE (NONE DETECT); UR COCAINE QUAL NONE DETECTED (NONE DETECT); UR METHADONE QUAL NONE DETECTED (NONE DETECT); UR OPIATES QUAL PRESUMPTIVE POSITIVE (NONE DETECT); UR OXYCODONE QUAL PRESUMPTIVE POSITIVE (NONE DETECT); UR PCP QUAL NONE DETECTED (NONE DETECT)
[2019-09-18 12:41] LABS: UR CREAT RANDOM 216.5 mg/dL (11-20)
--- NOTE | 2019-09-18 12:50 | Diag Imaging Result Doc PS360 ---
EXAM: US RENAL 2 (RETROPER) COMPLETE 09/18/2019 HISTORY: sharyn with sickle cell crisis TECHNIQUE: Renal ultrasound COMMENT: The spleen is incidentally enlarged measuring almost 15 cm in greatest dimension. The kidneys are without evidence of hydronephrosis or mass. The urinary bladder is not distended and there is a Saucedo catheter. The right kidney is 15.3 x 5.5 x 5.5 cm the left is 14 x 4.6 x 4.8 cm. IMPRESSION: Bilaterally enlarged kidneys. Splenomegaly. Compared to the previous study of 03/17/2018 there has been a considerable increase in size of both kidneys from a longitudinal dimension of 12 cm on the right and 10 cm on the left previously. The possibility of polynephritis or other inflammatory process is suggested. Electronically signed by Gary Quiñones 09/18/2019 12:47 PM
--- NOTE | 2019-09-18 12:50 | EKG Report ---
Test Performed on : 09/18/2019 10:15:15 AM Test Reason : ED. No order in [place] Blood Pressure : / mmHG Vent. Rate : 119 BPM Atrial Rate : 119 BPM P-R Int : 140 ms QRS Dur : 084 ms QT Int : 340 ms P-R-T Axes : 064 041 009 degrees QTc Int : 478 ms Sinus tachycardia. Otherwise normal ECG When compared with ECG of 24-NOV-2018 15:30, Nonspecific T wave abnormality no longer evident in Anterior leads Unconfirmed Result
--- NOTE | 2019-09-18 13:01 | Diag Imaging Result Doc PS360 ---
EXAM: CT THORAX/ABD/PELVIS W/O CON 09/18/2019 HISTORY: chest pain; liver failure; sickle cell; n/v; abd p TECHNIQUE: This exam was performed using automated exposure control, adjustment of mA or kV according to patient size, and/or use of iterative reconstruction technique. COMMENT: The current studies are compared with the previous examination of 10/22/2018. There is somewhat more prominent adenopathy present in the mediastinum particularly in the aorticopulmonary window that on the previous examination. There is a small pericardial effusion. There is also a small right pleural effusion which is actually smaller than that present on the previous study. 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 No acute bony abnormalities are present. There are patchy groundglass and alveolar opacities bilaterally which have increased in size since the previous study. The pleural-based cavitary thick-walled lesion which was previously demonstrated in the anterior left apex has evidently resolved. Some of the other lesions which were previously present such as that posteriorly in the superior segment of the left lower lobe are no longer present. There are however as stated above additional opacities which are larger or were not present at the time the previous study. Abdomen/pelvis: There is splenomegaly which has apparently decreased slightly since the previous study the spleen now measuring less than 11.9 cm in AP dimension versus slightly over 12.8 cm previously. The superior inferior dimension of the spleen now measures 14.2 cm versus 14.4 cm previously. The liver has not changed significantly in size. There has been cholecystectomy. There is no evidence of nephrolithiasis or hydronephrosis. There is no evidence of bowel obstruction. There is a Saucedo catheter in the urinary bladder. There is no evidence of free fluid in the pelvis. The right kidney measures over 13 cm in length the left is 11 cm in length. This is larger than the 11.7 and 10.5 cm at the time the previous study. 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 IMPRESSION: 1. Decreased splenomegaly. 2. Worsened patchy pulmonary opacities. The possibility of pneumonia cannot be excluded. 3. Increased renal size. The possibility of nephritis cannot be excluded. Electronically signed by Gary Quiñones 09/18/2019 12:59 PM
[2019-09-18] MEDS: NORCO-7.5 PO PRN ×2 (13:02→23:02)
[2019-09-18] MEDS: MAXIPIME 1 GM in NS 50 ML IV SCH ×2 (13:12→23:03)
--- NOTE | 2019-09-18 13:14 | Diag Imaging Result Doc PS360 ---
EXAM: CHEST-2 VIEWS 09/18/2019 HISTORY: sickle crisis TECHNIQUE: AP upright and lateral chest COMMENT: There are patchy ill-defined opacities in both lungs particularly the right upper and lower lobes. There is a Port-A-Cath on the right with its tip in the right atrium. Compared to 12/24/2018 the pulmonary opacities were not visible previously. IMPRESSION: Patchy pneumonia. Electronically signed by Gary Quiñones 09/18/2019 1:11 PM
[2019-09-18] MEDS: ZYVOX 600 MG/D5W 600 MG/300 ML IVPB IV SCH ×2 (14:40→23:03)
--- NOTE | 2019-09-18 14:49 | HISTORY AND PHYSICAL ---
PRIMARY CARE PROVIDER: Dr. Salmon. CHIEF COMPLAINT: Nausea, vomiting, back, chest and rib pain, lightheadedness, shortness of breath, decreased urine output. HISTORY OF PRESENT ILLNESS: Ms Loyda Henley is a 24-year-old female with a medical history of sickle cell anemia with frequent admissions for pain crisis. States that for at least 4 days she has been having acute pain in her back, chest and ribs along with nausea, vomiting, lightheadedness, shortness of breath, and decreased urine output. She denies any fever. Denies any burning with urination. She is not coughing up any colors. The pain she experiences is continuous with a continuous nausea. She presents here with these complaints and is found to be in sickle cell crisis along with organ dysfunction. She is showing signs of acute kidney injury along with liver injury. Her hemoglobin is 4.6. She is hypotensive, so we are going to admit her to the ICU for further evaluation and treatment. We will consult GI for the liver injury. We will consult Dr. Salmon for the sickle cell and the hypercoagulability state, and we will consult Dr. Wetzel for the kidney injuries. She was also very dry when she presented and required a PICC line placement. PAST MEDICAL HISTORY: 1. Sickle cell disease with frequent crisis. Her last sickle cell crisis was in October 2018. She receives blood at least once a month. Her last blood transfusion was 1 month ago. 2. Polysubstance dependence. 3. Avascular necrosis of the right hip. 4. Asthma. 5. Chronic leukocytosis. 6. History of sepsis in October 2018 secondary to Klebsiella pneumoniae from the right side infected port, also from bilateral pneumonia with septic emboli. 7. History of severe constipation and rectal fecal impaction. 8. Depression. 9. History of severe hemolytic anemia. 10. Dependence on opioids. 11. Left shoulder avascular necrosis that is worse than the right. SURGICAL HISTORY: 1. Multiple port insertions and removals. 2. Cholecystectomy. SOCIAL HISTORY: Denies tobacco or alcohol. Smokes marijuana on occasion and with documented history of narcotic dependence. FAMILY HISTORY: Two brothers with sickle cell. Grandfather who sickle cell. Grandmother and both of her parents are sickle cell trait carriers. ALLERGIES: Latex, Demerol, vancomycin HOME MEDICATIONS: Still not reconciled but what is listed is Hydrea, Jadenu, fentanyl, folic acid, and [place]od[place] 10. REVIEW OF SYSTEMS: Fourteen point review of systems were complete and all were negative except for those mentioned above in HPI. PHYSICAL EXAMINATION: VITAL SIGNS: Temperature 98.7 degrees, heart rate 132, respiratory rate 31, blood pressure 85/44, O2 saturation is 97% on 2 L. GENERAL: Ms. Loyda Henley is a 24-year-old female. She is in obvious pain. She is able answer questions appropriately. HEENT: Atraumatic, normocephalic. Pupils equal, round, reactive to light. Extraocular movements intact. Mucous membranes are dry. NECK: Trachea midline. CARDIOVASCULAR: S1, S2. Tachycardic rate and rhythm. No rubs, gallops, murmurs. No lower extremity edema. Plus 2 dorsalis and radial pulses. Negative for JVD or carotid bruits. PULMONARY: Clear to auscultate. Bilateral breath sounds. No accessory muscle use or work of breathing noted. Tolerating 2 L nasal cannula. GASTROINTESTINAL: Soft, mild tenderness, generalized tenderness. Positive bowel sounds x4 but hypoactive. EXTREMITIES: Moves all extremities equally. Full range of motion. NEUROLOGIC: Alert and oriented x3. Follows commands. Sensory is intact. SKIN: Warm, dry, intact. LABORATORY DATA: White blood cells 28,000, hemoglobin 4.6, hematocrit 13.3, platelet count 131,000. Percent reticulocytes is 3.92, reticular hemoglobin equivalent is 23.8. INR is 2.20, PTT is 51.2. Sodium 134, potassium 3.0, BUN 89, creatinine 5.2, glucose 124, calcium 7.9. Bilirubin is 5.14, AST 37, ALT 27. CK 30, troponin less than 0.01. Albumin is 3.4. Lactate is 2.4. Serum negative. Urinalysis, 100 protein, small blood, small bilirubin, 6 urobilinogen, trace leukocytes, too numerous to count white blood cells, 20 to 40 red blood cells, greater than 10 epithelial cells, no bacteria. Urine os is 295. Urine random creatinine is 216.5. Urine random sodium 24. Urine drug screen positive for opiates, oxycodone and cannabinoids. IMAGIN. Chest, abdomen and pelvic CT. Decreased splenomegaly. Worsened patchy pulmonary opacities, possibility of pneumonia could not be excluded and increased renal size, the possibility of nephritis could not be excluded. 2. Renal ultrasound. Bilaterally enlarged kidneys, splenomegaly. Compared to a previous ultrasound from March 2018, the kidneys have both increased considerably in size with the possibility of poly nephritis or some other inflammatory process. 3. EKG. Sinus tachycardia, rate 119. 4. Chest x-ray. Patchy pneumonia. ASSESSMENT AND PLAN: 1. Septic shock. Could be from urinary tract infection or multilobe pneumonia. However, she does have a history of bacteremia as well, and so cultures have been obtained. She has been started on broad-spectrum antibiotics. Intravenous fluids have been initiated. She denies coughing up any colors. Denies fever[place] [address] and her lactate is elevated. She is tachycardic as well. 2. Acute kidney injury. Could be secondary to sickle cell crisis, dehydration, hypotension. She is getting IV fluid hydration. If needed, we will have to start a pressor to improve her blood pressure and she will be getting some blood. 3. Sickle cell crisis, anemia with acute organ damage including the kidneys and the liver. Dr. Salmon has been consulted. She will be receiving 3 units of packed red blood cells. She is actually hypotensive at this time, so IV fluids have also been ordered and she may need to be placed on a pressor. Home medications have yet have been reconciled. 4. Acute liver injury with hypercoagulable state. Again, Dr. Salmon has been consulted for her sickle cell, but also to help with management of the hypercoagulable state. Gastroenterology has been consulted for the elevated liver enzymes and the liver injury. Her last hepatitis panel was performed in October 2018, all were nonreactive. She had the HIV 1 and 2 antibody screen at that time as well, which was also nonreactive. 5. History of polysubstance dependence and specifically opioid dependence. Currently she is in active acute pain on top of the chronic pain that she experiences. Her home medication regimen will be resumed. She has been started on Dilaudid at this time and we will need to wean that back off once she is not in crisis. 6. History of bilateral hip and bilateral shoulder avascular necrosis. There have been no surgeries on the that. Orthopedics saw her on her last admission in October with no surgical intervention. 7. History of Klebsiella pneumoniae in the blood, that was back in October. Again, blood cultures have been obtained. 8. Depression. 9. History of severe constipation with rectal fecal impaction. She will probably need to be started on a stool softener. 10. Deep venous thrombosis prophylaxis. SCDs. Dictated by CORRINA Stanford for Tray Baker MD Addendum: Patient seen and examined by myself. Agree with CORRINA note. It reflects my assessment and plan. Patient is being admitted to hospital for septic shock. She has history of bacteremia associated to drug abuse so will put her on broad spectrum antibiotics and urine and blood cultures has been drawn. Also noted to be on acute renal failure and acute liver injury. Will trend creatinine and liver function tests as well as INR. Will be very cautious with pain medications considering his history of opiate abuse and continue to use marijuana. She is being treated for sickle cell disease by Dr. Claudia Royal in [place] who prescribes Dilaudid 4 mg, Oxycodone and Buprenorphine patches. Now I think this patient is on a sickle cell crisis requiring 3 units of PRBC transfused so will provide Mayodan by now and monitor patient closely. Critical care time of 45 minutes. cc: CORRINA Stanford MD [facility]
--- NOTE | 2019-09-18 15:00 | SEPSIS: TISSUE PERFUSION ASSMT ---
Sepsis: Tissue Perfusion Assmt - Physical Exam Assessment Date: 09/18/19 Time Assessment Initialized: 14:59 Vital Signs: Last Vital Signs Temp 99 F 09/18/19 14:09 Pulse 129 H 09/18/19 14:45 Resp 22 09/18/19 14:45 BP 93/51 09/18/19 14:45 Pulse Ox 100 09/18/19 14:45 Height 5 ft 6 in Weight 63.503 kg Lung Sounds:: lungs clear Heart Sounds:: Regular Capillary Refill Time: Less Than 2 Seconds Skin Exam:: pale - Impression Impression:: Tissue Perfusion Adequate - Plan Plan:: See Orders (improving but pending blood transfusions)
[2019-09-18] MEDS ORDERED: NS 250 ML ONE (15:08)
[2019-09-18 16:47] LABS: URINE SOURCE CATH
[2019-09-18 16:53] LABS: BILIRUBIN URINE SMALL (NEGATIVE); BLOOD URINE SMALL (NEGATIVE); COLOR ORANGE; GLUCOSE URINE NEGATIVE (NEGATIVE); KETONE URINE NEGATIVE (NEGATIVE); LEUKOCYTES URINE TRACE (NEGATIVE); NITRITE URINE NEGATIVE (NEGATIVE); PH URINE 5.5; PROTEIN URINE 200 mg/dL (NEGATIVE); SP GRAVITY URINE 1.028; TURBIDITY URINE TURBID (CLEAR); UROBILINOGEN URINE 6 mg/dL (NORMAL)
[2019-09-18] MEDS ORDERED: BLISTEX MEDICATED BERRY LIP BALM TOP PRN (16:54)
[2019-09-18 17:05] LABS: UR EPITHELIAL CELLS >10 /HPF (<10); URINE BACTERIA NEGATIVE /HPF; URINE RBC 20-40 /HPF (<10); URINE WBC TNTC /HPF (<10)
[2019-09-18 17:17] LABS: URINE YEAST NONE SEEN
[2019-09-18 17:18] LABS: URINE CASTS GRANULAR PRESENT; URINE CRYSTALS NONE SEEN; URINE SMALL ROUND CELLS RENAL PRESENT
[2019-09-18 17:23] LABS: UR PROT RANDOM 351.8 mg/dL
[2019-09-18] MEDS: PHENERGAN IV PRN ×2 (17:43→23:54)
[2019-09-18] MEDS: SODIUM CHLORIDE 0.9% INJ PRN (17:43)
[2019-09-18 18:41] LABS: ALB/GLOB RATIO 0.8; ALBUMIN 2.6 g/dL (3.5-5.0); CALCIUM 7.1 mg/dL (8.8-10.2); CREATININE 4.8 mg/dL (0.5-0.9); MAGNESIUM 2.1 mg/dL (1.5-2.7); POTASSIUM 2.8 mmol/L (3.5-5.1); TOTAL BILIRUBIN 5.31 mg/dL (0.20-1.00); TOTAL PROTEIN 5.8 g/dL (6.3-8.3)
[2019-09-18] MEDS: NS 1,000 ML IV SCH ×2 (19:10→22:13)
[2019-09-18] MEDS: ZOFRAN IV PRN (19:15)
[2019-09-18] MEDS ORDERED: KLOR-CON PO ONE (19:25)
[2019-09-18 19:45] LABS: HEMOGLOBIN 5.5 g/dL (12.0-16.0); MCH 27.9 PG (27-31); MCV 79.7 FL (81-99); MPV 10.4 FL (7.4-10.4); RBC 1.97 XMIL (4.2-5.4); RDW 16.6 % (11.5-14.5); WBC 31.3 X1000 (4.8-10.8)
[2019-09-18 19:46] LABS: HEMATOCRIT 15.7 % (37.0-47.0)
[2019-09-18] MEDS ORDERED: BENADRYL IV ONE (19:55)
[2019-09-18 20:59] LABS: URINE SOURCE CATH
[2019-09-18] MEDS ORDERED: PRILOSEC PO SCH (21:00)
--- NOTE | 2019-09-18 21:10 | HEMO/ONC CONSULTATION ---
DATE: 09/18/2019 REASON FOR CONSULTATION: The patient is seen in consultation regarding sickle cell crisis at the request of Dr. Carrera. HISTORY OF PRESENT ILLNESS: Loyda is a 24-year-old, -[place]aur[place] patient, with known sickle cell disease with multiple hospital admissions, well known to Dr. Salmon. She has not been seen in our clinic since February, but has had multiple prior hospital admissions for pain crises. The patient presented to the emergency room on this admission with decreased urine output, fatigue, nausea, vomiting, and back, chest, and rib pain, as well as increasing shortness of breath. Upon arrival to the emergency room, she was found to be in renal failure with a significantly low hemoglobin at 4.6. She was admitted to the ICU for further management. Nephrology and GI have been consulted. PAST MEDICAL HISTORY: Significant for sickle cell anemia, chronic pain, port infections. PAST SURGICAL HISTORY: Cholecystectomy, port placement. ALLERGIES: Reviewed per the chart. MEDICATIONS: Reviewed per the chart. REVIEW OF SYSTEMS: Pertinent positives and negatives as per HPI. All other review of systems negative. SOCIAL HISTORY: No alcohol, illicit drug, or tobacco use. FAMILY MEDICAL HISTORY: Positive for sickle cell disease. PHYSICAL EXAMINATION: Temperature 99.0 degrees, pulse 130, respiratory rate 28, blood pressure 97/46, O2 saturation 100% on 2 L nasal cannula.General: This is an acutely ill- appearing, pale, -[place]aur[place] woman. Cardiovascular: Tachycardic, but regular rhythm. No murmurs, rubs, or gallops. Pulmonary: Coarse bilateral breath sounds. No wheezes, rales, or rhonchi. Gastrointestinal: Abdomen is soft, nontender, nondistended, with normoactive bowel sounds. The rest of examination normal per template. LABORATORY AND DIAGNOSTIC DATA: White count 28.5, hemoglobin 4.6, platelet count 131,000, 77 segs, 16 bands, 5 lymphocytes, 5% nucleated red blood cells, reticulocyte is low for her at 3.92%. INR is 2.2, PTT 51.2. Sodium 134, potassium 3.0, BUN 89, creatinine 5.2, calcium 7.9. Total bilirubin 5.14, AST 37, ALT 27, alkaline phosphatase 164. Ferritin 2480. Serum negative. Albumin 3.4. Urinalysis notable for trace leukocytes, wgi-hhapbapl-ih-count white blood cells, 20 to 40 red blood cells. Random urine creatinine 216.5. Toxicology screen presumptive positive for opiates, oxycodone, and cannabinoids. Type and cross for 3 units of leukocyte-reduced, red blood cells, compatible with 1 transfused thus far. Cultures are pending. CT of chest, abdomen, and pelvis shows decreased splenomegaly, worsened patchy pulmonary opacities, and increased renal size. ASSESSMENT AND PLAN: 1. Sickle cell crisis: Agree with transfusion. If the patient's hemoglobin does not respond or her reticulocyte count does not improve, I would be concerned for developing aplastic crisis. Treat underlying infection and provide supportive care as you are doing. If she is not clinically responding, we could consider transfer for exchange transfusion. Currently, she has no evidence of acute chest crisis given her adequate oxygen saturations. Monitor closely for development of any further organ damage. 2. Renal failure: Partially likely related to dehydration. Continue fluid support. Nephrology has been consulted. Further workup based on their recommendations. Follow along during her hospital stay. 3. Elevated coagulation parameters: I am suspicious for disseminated intravascular coagulation. I will order a panel to include D-dimer, fibrinogen levels at this time. Recommend daily reticulocyte counts and CBCs. I would recommend a repeat CBC after her transfusion as well. 4. Elevated alkaline phosphatase and ferritin: These levels are within normal range for prior testing on her. She did not have any evidence of acute hepatic failure as her AST and ALT are essentially normal. Further recommendations per GI. We will follow closely along with you and make further recommendations based on hospital course. 5. Possible urinary tract infection, pneumonia, and sepsis: She is on appropriate antibiotics per sepsis protocol. Monitor closely. Reassess her status throughout the next 48 hours closely. 6. Pain: Agree with IV pain medication to control her pain in the setting of an acute crisis. cc: MD Rigo Red MD Dr. Garcia MTDD
[2019-09-18 21:27] LABS: BILIRUBIN URINE SMALL (NEGATIVE); BLOOD URINE MODERATE (NEGATIVE); COLOR YELLOW; GLUCOSE URINE NEGATIVE (NEGATIVE); KETONE URINE NEGATIVE (NEGATIVE); LEUKOCYTES URINE TRACE (NEGATIVE); NITRITE URINE NEGATIVE (NEGATIVE); PH URINE 5.5; PROTEIN URINE 100 mg/dL (NEGATIVE); SP GRAVITY URINE 1.016; TURBIDITY URINE HAZY (CLEAR); UR EPITHELIAL CELLS <10 /HPF (<10); URINE BACTERIA NEGATIVE /HPF; URINE CASTS GRANULAR PRESENT; URINE RBC TNTC /HPF (<10); UROBILINOGEN URINE 6 mg/dL (NORMAL)
[2019-09-18] MEDS: PATIENT'S OWN MED PO SCH (21:29)
[2019-09-18] MEDS: HYDREA PO SCH (21:29)
[2019-09-18] MEDS ORDERED: POTASSIUM CHLORIDE 40 MEQ/SWI 40 MEQ/100 ML IVPB IV ONE (21:53)
[2019-09-18] MEDS: PEPCID IV SCH (22:54)
[2019-09-18 23:57] LABS: HEMATOCRIT 21.8 % (37.0-47.0); HEMOGLOBIN 7.5 g/dL (12.0-16.0)
[2019-09-19] MEDS ORDERED: CALMOSEPTINE OINTMENT TOP PRN (02:08)
[2019-09-19] MEDS: NORCO-7.5 PO PRN ×4 (02:56→08:44)
[2019-09-19 04:57] LABS: RETIC% 1.84 % (0.8-2.1); RETIC-HE 22.2 PG (28.2-36.6)
[2019-09-19 05:02] LABS: BASO# 0.04 X1000 (0.0-0.2); BASO% 0.2 % (0.0-0.8); EOS# 0.07 X1000 (0.0-0.7); EOS% 0.3 % (0.0-10.0); HEMATOCRIT 21.1 % (37.0-47.0); HEMOGLOBIN 7.5 g/dL (12.0-16.0); IMM GRAN% 5.5 % (0.0-0.5); LYMPH# 2.08 X1000 (1.2-3.4); LYMPH% 8.2 % (20.5-51.1); MCH 28.3 PG (27-31); MCHC 35.5 g/dL (33-37); MCV 79.6 FL (81-99); MONO% 2.4 % (1.7-9.3); MPV 9.5 FL (7.4-10.4); NEUT# 21.22 X1000 (1.4-6.5); NEUT% 83.4 % (42.2-75.2); PLT 92 X1000 (130-400); RBC 2.65 XMIL (4.2-5.4); RDW 16.5 % (11.5-14.5); WBC 25.41 X1000 (4.8-10.8)
[2019-09-19] MEDS: NS 1,000 ML IV SCH ×3 (05:09→17:59)
[2019-09-19 05:46] LABS: ALB/GLOB RATIO 0.8; ALBUMIN 2.5 g/dL (3.5-5.0); CREATININE 2.8 mg/dL (0.5-0.9); MAGNESIUM 2.2 mg/dL (1.5-2.7); POTASSIUM 3.3 mmol/L (3.5-5.1); TOTAL BILIRUBIN 5.9 mg/dL (0.20-1.00); TOTAL PROTEIN 5.8 g/dL (6.3-8.3)
[2019-09-19 05:47] LABS: CALCIUM 6.9 mg/dL (8.8-10.2)
[2019-09-19] MEDS ORDERED: CALCIUM GLUCONATE 1 GM in NS 50 ML IV ONE ×2 (06:07→10:30)
[2019-09-19] MEDS ORDERED: POTASSIUM CHLORIDE 40 MEQ/SWI 40 MEQ/100 ML IVPB IV ONE (06:08)
[2019-09-19] MEDS: PHENERGAN IV PRN ×3 (06:12→20:53)
[2019-09-19 06:18] LABS: INR 2.27; PROTIME 25.7 Seconds (11.0-16.0)
[2019-09-19 07:41] LABS: BANDS 18 % (0-1); LYMPHS 2 % (21-51); MONO 4 % (1-9); NRBC 1 % (0-0); SEGS 76 % (42-75)
[2019-09-19 07:42] LABS: ANISOCYTOSIS 1+; HYPOCHROM 1+
[2019-09-19 07:43] LABS: POIKILOCYTOSIS 2+
[2019-09-19 07:44] LABS: SICKLE CELLS OCCASIONAL; TARGET CELLS 1+
[2019-09-19 07:45] LABS: LARGE PLATELETS OCCASIONAL
[2019-09-19] MEDS ORDERED: CALCIUM GLUCONATE 2 GM in NS 100 ML IV ONE (08:21)
[2019-09-19] MEDS ORDERED: POTASSIUM CHLORIDE 60 MEQ in NS 500 ML IV ONE (08:22)
[2019-09-19] MEDS: PEPCID IV SCH ×2 (08:35→20:53)
[2019-09-19] MEDS: SODIUM CHLORIDE 0.9% INJ SCH (08:35)
[2019-09-19] MEDS: FOLIC ACID PO SCH (08:35)
[2019-09-19] MEDS: TUMS EXTRA STRENGTH PO SCH ×3 (10:00→20:53)
[2019-09-19] MEDS ORDERED: SODIUM PHOSPHATE 35 MMOL in NS 250 ML IV ONE (11:00)
[2019-09-19] MEDS: DILAUDID PO PRN ×4 (11:00→20:51)
[2019-09-19] MEDS: ZYVOX 600 MG/D5W 600 MG/300 ML IVPB IV SCH (11:48)
[2019-09-19] MEDS: MAXIPIME 1 GM in NS 50 ML IV SCH (11:48)
--- NOTE | 2019-09-19 11:49 | PROGRESS NOTE ---
DATE: 09/19/2019 SUBJECTIVE: The patient reports she is still feeling pain all over. Denies any other complaints at this time. She has received so far 3 units of blood. OBJECTIVE: Vital Signs: Temperature 98.0 degrees, heart rate 118, respiratory rate 30, blood pressure 96/64, O2 saturation 95% on room air. General: On examination this is a 24-year-old, -Mal[place] female lying in bed, in no acute distress. Cardiovascular Exam: S1, S2 heard. No murmurs, gallops, or rubs. Regular rate and rhythm. Respiratory: Clear bilaterally to auscultation. No work of breathing or using accessory muscles. Abdomen: Soft. Diffuse tenderness to palpation in the abdomen, but the abdomen is soft. No signs of peritoneal irritation. Bowel sounds present, hypoactive. Extremities: No clubbing, cyanosis, or edema. Peripheral pulses present in both legs. Neurological: Patient is alert and oriented x3. Moves all 4 extremities. LABORATORY DATA: White cell count 25.41, hemoglobin 7.5, hematocrit 21.1, and platelet count is 92,000. D -dimer from yesterday 9.6, fibrinogen is 434. INR 2.227. BMP remarkable for potassium 3.3, calcium 6.9, phosphorus 1.4 and magnesium 2.2. ASSESSMENT AND PLAN: 1. Acute hypoxemic and hypercapnic respiratory failure, on ventilator. 2. Septic shock, source unknown, could be from urinary tract infection or Lower pneumonia. She has history of bacteremia and so far blood cultures show gram-positive cocci. The patient is on Zyvox and cefepime. We will continue with the same management. White cell count is slightly better. We will continue with current antibiotic management until we have final result of blood cultures. Blood pressure is still borderline low, between 90s and 100. We will continue with the same management. White cell count is improving but, of course, not even close to normal yet. 3. Acute kidney injury, most likely related to dehydration or hypotension. Her kidney function is recovering nicely. We will continue with current management. 4. Sickle cell crises anemia. After 3 units of blood hemoglobin has improved. She continues to be with IV fluids. I do not think we will need a pressor. 5. History of polysubstance abuse and dependance and specifically opiate dependence. I think at this point we will restart her home medications, in this case Dilaudid 1 mg p.o. every 6 hours and see how she does. 6. Depression. We will continue home medications. DISPOSITION: I think at this point, patient is generally stable and we will transfer the patient to PVC unit. cc: Tray Baker MD
--- NOTE | 2019-09-19 12:28 | EKG Report ---
Test Performed on : 09/19/2019 07:01:05 AM Test Reason : chest pain Blood Pressure : / mmHG Vent. Rate : 118 BPM Atrial Rate : 118 BPM P-R Int : 138 ms QRS Dur : 078 ms QT Int : 340 ms P-R-T Axes : 059 037 016 degrees QTc Int : 476 ms Sinus tachycardia. Otherwise normal ECG When compared with ECG of 18-SEP-2019 10:15, (Unconfirmed) No significant change was found Confirmed by Ari CANCHOLA, Lizandro Carlisle ([id number]) on 09/21/2019 9:28:20 AM
[2019-09-19] MEDS: NEUTRA-PHOS PO SCH ×2 (14:14→17:26)
--- NOTE | 2019-09-19 14:50 | GASTROENTEROLOGY CONSULTATION ---
DATE: 09/19/2019 CONSULTING PHYSICIAN: Dr. Carrera. REASON FOR CONSULT: Abnormal liver enzymes and coagulopathy. HISTORY: This is a 24-year-old, female who has history of sickle cell disease admitted to hospital with generalized body pain. She was also complaining of shortness of breath, nausea and vomiting. She was found to be in sickle cell crisis and she appears to be in sepsis. She was found to be in sickle cell crisis and renal insufficiency. She was also being treated for septicemia most likely related to urinary tract infection. Her labs indicated mild elevated alkaline phosphatase and total bilirubin. Consult obtained because it was also associated with elevated PT/INR and PTT. The patient denies any signs of active bleeding. She is complaining of generalized body pain and continues to have generalized body ache. She tells me she is feeling much better. Her breathing has also improved. PAST MEDICAL HISTORY: Significant for sickle cell disease. Also has history of asthma. Carries a diagnosis of polysubstance abuse. She has history of depression. PAST SURGICAL HISTORY: She has had cholecystectomy and has had a port put in and then removed. SOCIAL HISTORY: She lives by herself and does not smoke or drink but has history of narcotic dependence as well as uses marijuana. FAMILY HISTORY: Noncontributory. MEDICATIONS: Prior to hospitalization, she was on Jadenu, fentanyl, folic acid, [place] and Hydrea. ALLERGIES: Claims to be allergic to Demerol, vancomycin and latex. REVIEW OF SYSTEMS: As per HPI as above. PHYSICAL EXAMINATION: General: On examination very pleasant female, thin built, lying in bed. She appears to be tachypneic. Vital Signs: Temperature 98 degrees Fahrenheit, pulse is 118 per minute, breathing rate of 30, blood pressure 196/64. HEENT: Head is atraumatic, normocephalic. Eyes: Conjunctivae is pale. Sclerae anicteric. Nares are patent. No discharge. Mouth: Buccal mucosa is moist. Throat is normal. Neck: Neck is supple. No lymphadenopathy or thyromegaly noted. Chest: Bilaterally symmetrical. It is moving with respirations. Breath sounds audible bilaterally. I could not appreciate any crepitations. Heart: S1, S2 audible. No murmur could be appreciated but she is tachycardic. Abdomen: Is flat soft, nontender. Bowel sounds are audible. No pedal edema noted. LABORATORIES: Reviewed. WBC today is 25.4, hemoglobin 7.5, hematocrit 21.1, MCV 79.6. Sodium 136, potassium 3.3, chloride 100, bicarb is 16, BUN is 76, creatinine 2.8. Transaminases, AST on admission 47 has dropped down to 33, ALT 25 which is now 20, alkaline phosphatase is down to 110. Total bilirubin was 5.31, today is 5.90. LDH is 653. IMPRESSION: This is a very unfortunate 24-year-old, female who has history of sickle cell disease has presented to the hospital in sickle cell crisis. Also has urinary tract infection most likely, the septicemia she has had. She appears to be in septic shock. I concur with Dr. Alexander. Her elevated PT and PTT could be related to possible DIC and septicemia. Her liver enzymes are barely elevated. AST more than ALT suggestive of most likely hemolysis further evident by elevated bilirubin and LDH. Her liver enzymes are elevated because of other reasons not because of any liver injury. At this point from GI perspective, there is not much to add. Treatment of urine tract infection, septicemia and management of her anemia and the sickle cell crisis would be the focus. Again from GI as per not much to add. I will sign off and will be available if needed. cc: Harsh Sepulveda MD
--- NOTE | 2019-09-19 15:53 | NEPHROLOGY CONSULTATION ---
DATE: 09/19/2019 REASON FOR CONSULTATION: Acute kidney injury. HISTORY OF PRESENT ILLNESS: Ms. Henley is a 24-year-old woman with sickle cell disease. She had approximately 4 days of nausea, vomiting and diarrhea. Worsening back, flank, abdominal, chest pain with some shortness of breath. No chills, fever, sweats, night sweats. She came to the emergency room for evaluation where she was found to have marked anemia with hemoglobin of 4.6 and acute kidney injury with creatinine. 5.2. Also bilirubin 5.1. She was admitted to the hospital and treated with packed red blood cell transfusion as well as aggressive IV fluid resuscitation. Urine output improved and her kidney function has been improving as well. She has never had kidney disease before of which she is aware. PAST MEDICAL HISTORY: As above. Her sickle cell is cared for at [facility]. HOME MEDICATIONS: Include folate, Hydrea, hydrocodone, fentanyl, deferoxamine. ALLERGIES: Meperidine, vancomycin, latex. SOCIAL/FAMILY/REVIEW OF SYSTEMS: Noncontributory. PHYSICAL EXAMINATION: Vital Signs: Blood pressure 96/64, heart rate 118, respirations 30, afebrile. General: She is lying quietly but moaning softly, no acute distress. Skin is warm and dry. Conjunctivae are pink. Pupils are equal. Oropharynx is clear. Neck: Neck veins are not distended. Trachea is midline. Heart: Regular with a murmur. Lungs: Equal. No crackles. Abdomen: Soft, minimally tender. Bowel sounds are present. Extremities: 1. No edema, clubbing or cyanosis. IMPRESSION: Acute kidney injury. Resolving with intravenous fluids. She does have protein and blood in her urine. Think these are difficult to interpret in the context of her sickle cell crisis. In other words, this does not serve as evidence of a glomerular inflammatory illness. Her renal function is improving so we will simply follow. Continue IV fluids. I have reviewed her medications. No changes are required at this time. cc: Trevor Wetzel MD
[2019-09-19] MEDS: TYLENOL PO PRN (17:26)
[2019-09-19] MEDS: HYDREA PO SCH (20:51)
[2019-09-19] MEDS: SODIUM CHLORIDE 0.9% INJ PRN (20:54)
[2019-09-19] MEDS: PATIENT'S OWN MED PO SCH (21:07)
[2019-09-20] MEDS: MAXIPIME 1 GM in NS 50 ML IV SCH ×2
[2019-09-20] MEDS: NS 1,000 ML IV SCH ×2 (00:01→08:08)
[2019-09-20] MEDS: DILAUDID PO PRN ×8 (00:01→21:00)
[2019-09-20] MEDS: ZYVOX 600 MG/D5W 600 MG/300 ML IVPB IV SCH ×3 (00:01→23:33)
[2019-09-20] MEDS: PHENERGAN IV PRN ×4 (02:54→21:00)
[2019-09-20 06:42] LABS: INR 2.03; PROTIME 23.4 Seconds (11.0-16.0)
[2019-09-20 06:43] LABS: PTT 49.5 Seconds (22.3-41.8)
[2019-09-20 06:56] LABS: ESTIMATED GFR > 60
[2019-09-20 07:05] LABS: WBC 21.12 X1000 (4.8-10.8)
[2019-09-20 07:06] LABS: BASO# 0.02 X1000 (0.0-0.2); BASO% 0.1 % (0.0-0.8); EOS# 0.04 X1000 (0.0-0.7); EOS% 0.2 % (0.0-10.0); HEMATOCRIT 21.6 % (37.0-47.0); HEMOGLOBIN 7.6 g/dL (12.0-16.0); IMM GRAN# 0.41 X1000 (0.0-0.04); IMM GRAN% 1.9 % (0.0-0.5); LYMPH# 1.43 X1000 (1.2-3.4); LYMPH% 6.8 % (20.5-51.1); MCH 27.5 PG (27-31); MCHC 35.2 g/dL (33-37); MCV 78.3 FL (81-99); MONO# 0.34 X1000 (0.11-0.59); MONO% 1.6 % (1.7-9.3); MPV 9.4 FL (7.4-10.4); NEUT# 18.88 X1000 (1.4-6.5); NEUT% 89.4 % (42.2-75.2); PLT 70 X1000 (130-400); RBC 2.76 XMIL (4.2-5.4); RDW 16.3 % (11.5-14.5)
[2019-09-20 07:07] LABS: AGAP 16; ALB/GLOB RATIO 0.6; ALBUMIN 2.3 g/dL (3.5-5.0); ALKALINE PHOSPHATASE 122 U/L (32-104); BUN 58 mg/dL (8-22); CALCIUM 7.6 mg/dL (8.8-10.2); CHLORIDE 112 mmol/L (98-107); COSMO 305; CREATININE 1.1 mg/dL (0.5-0.9); GLUCOSE 107 mg/dL (70-104); GOT 17 U/L (10-30); GPT 15 U/L (10-36); MAGNESIUM 2.5 mg/dL (1.5-2.7); POTASSIUM 3.1 mmol/L (3.5-5.1); SODIUM 145 mmol/L (136-145); TCO2 17 mmol/L (25-35); TOTAL BILIRUBIN 3.97 mg/dL (0.20-1.00); TOTAL PROTEIN 5.9 g/dL (6.3-8.3)
[2019-09-20 07:14] LABS: RETIC% 0.6 % (0.8-2.1); RETIC-HE 19.4 PG (28.2-36.6)
[2019-09-20] MEDS ORDERED: POTASSIUM CHLORIDE 60 MEQ in NS 500 ML IV ONE (07:20)
[2019-09-20] MEDS: PEPCID IV SCH ×2 (08:08→21:26)
[2019-09-20] MEDS: FOLIC ACID PO SCH (08:09)
[2019-09-20] MEDS: SODIUM CHLORIDE 0.9% INJ SCH ×3 (08:09→08:54)
[2019-09-20] MEDS: TUMS EXTRA STRENGTH PO SCH ×2 (08:13→21:26)
[2019-09-20] MEDS: NEUTRA-PHOS PO SCH ×3 (08:13→21:27)
--- NOTE | 2019-09-20 08:59 | PROGRESS NOTE ---
DATE: 09/20/2019 SUBJECTIVE: The patient continues to report pain all over. She reports that the level of pain is exactly the same like when she came here, admitted. Reports also feeling very nauseated. It is well known that she also abused marijuana. OBJECTIVE: Vital Signs: Temperature 98.9 degrees, heart rate 124, respiratory rate 24, blood pressure 127/75, O2 saturation 98% on room air. General: This is a chronically ill-appearing, 24- year-old, female, lying in bed in no acute distress. Cardiovascular: S1, S2 heard. No murmurs, gallops, or rubs. Regular rate and rhythm. Respiratory: Clear bilaterally to auscultation, with minimal coarse breath sounds noted in both pulmonary bases. The patient is not using any accessory muscles or having work of breathing. Abdomen: Soft, a little bit distended, but diffuse tenderness to palpation in the abdomen. No signs of peritoneal irritation. Bowel sounds present and hypoactive. Extremities: No clubbing, cyanosis, or edema. Peripheral pulses present in both legs. Neurological: The patient is alert and oriented x3. Moves all 4 extremities. LABORATORY DATA: White cell count is 21.12, hemoglobin 7.6, hematocrit 21.6, platelets 70,000 with reticulocyte count of 19.4. INR is 2.03. BMP reveals creatinine 1.1 with potassium 3.1. Normal magnesium and phosphorus. ASSESSMENT AND PLAN: 1. Sepsis secondary to multilobar pneumonia secondary to staphylococcus aureus. We have isolated that bacteria in both blood cultures. She is on Zyvox and cefepime. At this point, we are going to stop cefepime, and continue with Zyvox for methicillin-sensitive Staphylococcus aureus bacteremia. She gives history of Staphylococcal infections before. At this point, will continue with the same management. Will check another blood culture tomorrow to document eradication of the disease. Blood pressure is maintaining above 100 most of the time. Will continue with the same management. White cell count continues to improve. 2. Acute kidney injury, almost resolved. That has been most likely related to dehydration and hypotension. Nephrology following this patient. Will follow recommendations. 3. Sickle cell crisis anemia. Hemoglobin is improved after 3 units of blood transfused. We are monitoring reticulocyte count. I think this patient is getting much better from sickle cell crisis, although because of her history of polysubstance abuse, she continues to require pain medication on a regular basis. In this case, we have provided Dilaudid oral that this patient takes at home instead of Wade. 4. History of polysubstance abuse and dependence. She has a well known history of opiate dependence here. Also, she is abusing marijuana, and she reports intractable nausea and vomiting that is not responding to Phenergan. I already told the patient that we need to continue to use intravenous fluids to help her wash out that medication, but will continue to provide the same medications for nausea. 5. Depression. Will continue home medications. 6. Disposition. At this point, we are going to transfer this patient to a regular floor today. cc: Tray Baker MD
[2019-09-20 10:46] LABS: BANDS 14 % (0-1); LYMPHS 10 % (21-51); MONO 2 % (1-9); SEGS 74 % (42-75)
[2019-09-20 10:47] LABS: ANISOCYTOSIS 1+; HYPOCHROM 1+; POIKILOCYTOSIS 1+; SCHISTOCYTES OCCASIONAL; TARGET CELLS 1+
[2019-09-20 10:48] LABS: LARGE PLATELETS OCCASIONAL; SICKLE CELLS OCCASIONAL
[2019-09-20] MEDS: PATIENT'S OWN MED PO SCH (21:26)
[2019-09-20] MEDS: HYDREA PO SCH (21:26)
[2019-09-21] MEDS: DILAUDID PO PRN ×8 (00:02→20:56)
[2019-09-21] MEDS: SODIUM CHLORIDE 0.9% INJ PRN ×2 (05:48→17:49)
[2019-09-21] MEDS: PHENERGAN IV PRN ×2 (05:48→17:49)
[2019-09-21] MEDS ORDERED: DURAGESIC 12 MICROGM/HR PATCH TD SCH (06:00)
[2019-09-21 07:36] LABS: BASO# 0.03 X1000 (0.0-0.2); BASO% 0.1 % (0.0-0.8); EOS# 0.08 X1000 (0.0-0.7); EOS% 0.3 % (0.0-10.0); HEMATOCRIT 17.4 % (37.0-47.0); IMM GRAN# 0.52 X1000 (0.0-0.04); IMM GRAN% 1.8 % (0.0-0.5); LYMPH# 2.67 X1000 (1.2-3.4); LYMPH% 9.1 % (20.5-51.1); MCH 27.5 PG (27-31); MCHC 34.5 g/dL (33-37); MCV 79.8 FL (81-99); MONO# 0.68 X1000 (0.11-0.59); MONO% 2.3 % (1.7-9.3); MPV 8.9 FL (7.4-10.4); NEUT# 25.52 X1000 (1.4-6.5); NEUT% 86.4 % (42.2-75.2); PLT 73 X1000 (130-400); RBC 2.18 XMIL (4.2-5.4); RDW 16.8 % (11.5-14.5); RETIC% 0.43 % (0.8-2.1); RETIC-HE 21.5 PG (28.2-36.6)
[2019-09-21 07:42] LABS: INR 1.86; PROTIME 21.8 Seconds (11.0-16.0)
[2019-09-21 07:43] LABS: PTT 43.3 Seconds (22.3-41.8)
[2019-09-21] MEDS: NEUTRA-PHOS PO SCH ×3 (08:05→16:27)
[2019-09-21] MEDS: FOLIC ACID PO SCH (08:05)
[2019-09-21] MEDS: TUMS EXTRA STRENGTH PO SCH ×2 (08:05→20:56)
[2019-09-21 08:07] LABS: AGAP 16; ALB/GLOB RATIO 0.8; ALBUMIN 2.7 g/dL (3.5-5.0); ALKALINE PHOSPHATASE 138 U/L (32-104); BUN 28 mg/dL (8-22); CALCIUM 8.2 mg/dL (8.8-10.2); CHLORIDE 113 mmol/L (98-107); COSMO 300; CREATININE 0.5 mg/dL (0.5-0.9); ESTIMATED GFR > 60; GLUCOSE 133 mg/dL (70-104); GOT 18 U/L (10-30); GPT 12 U/L (10-36); MAGNESIUM 2.1 mg/dL (1.5-2.7); POTASSIUM 3.6 mmol/L (3.5-5.1); SODIUM 147 mmol/L (136-145); TCO2 18 mmol/L (25-35); TOTAL BILIRUBIN 2.69 mg/dL (0.20-1.00); TOTAL PROTEIN 6.1 g/dL (6.3-8.3)
[2019-09-21] MEDS: PEPCID IV SCH ×2 (08:13→20:56)
[2019-09-21 08:44] LABS: BANDS 8 % (0-1); LYMPHS 12 % (21-51); SEGS 80 % (42-75)
[2019-09-21 08:45] LABS: ANISOCYTOSIS 1+; HYPOCHROM 1+; POIKILOCYTOSIS 1+; SICKLE CELLS OCCASIONAL; TARGET CELLS OCCASIONAL
[2019-09-21 08:46] LABS: LARGE PLATELETS OCCASIONAL
[2019-09-21] MEDS ORDERED: NS 500 ML IV ONE (09:12)
[2019-09-21] MEDS: NS 1,000 ML IV SCH ×2 (10:01→12:17)
[2019-09-21] MEDS ORDERED: SODIUM PHOSPHATE 35 MMOL in NS 250 ML IV ONE (10:59)
--- NOTE | 2019-09-21 11:23 | Diag Imaging Result Doc PS360 ---
EXAM: CHEST-2 VIEWS HISTORY: patchy pneumonia TECHNIQUE: Two views COMPARISON: 09/18/2019 FINDINGS: There are dense bilateral infiltrates. These are more prominent than on the prior study. There is a small right pleural effusion. Heart is borderline mildly prominent. No change in the right sided portacatheter. A left-sided PICC line has been placed. The tip overlies the right atrium. IMPRESSION: Worsening infiltrates Electronically signed by Sahil Solitario 09/21/2019 11:21 AM
--- NOTE | 2019-09-21 11:36 | PROGRESS NOTE ---
DATE: 09/21/2019 SUBJECTIVE: The patient continues to report pain all over. She requests for Dilaudid to be increased from 1 to 2 mg p.o. q.3 hours and she is taking it every 3 hours as if it is scheduled. She reports feeling still nauseated. OBJECTIVE: Vital Signs: Temperature 98.4 degrees, heart rate 51, respiratory rate 18, blood pressure 121/83, O2 saturation 98% on room air. General: This is a chronically ill appearing 24-year-old female lying in bed in mild distress because of nausea, and according to her, pain all over. Cardiovascular: S1, S2 heard. No murmurs, gallops, or rubs. Regular rate and rhythm. Respiratory: Clear bilaterally to auscultation with minimal coarse breath sounds noted in both pulmonary bases. Patient not using any accessory muscles or having work of breathing. Patient is not requiring any oxygen supplementation. Abdomen: Soft, a little bit distended, and diffuse tenderness to palpation in the abdomen but no signs of peritoneal irritation. Bowel sounds present and hypoactive. Extremities: No clubbing, cyanosis, or edema. Peripheral pulses present in both legs. Neurological: Patient is alert and oriented x3. Moves 4 extremities. LABORATORY DATA: White cell count is 29.50, hemoglobin 6.0, hematocrit 17.4, platelets are 73,000, with INR that is 1.86. PT is 21.8, PTT 43.3. BMP reveals phosphorus 1.0 with normal renal function. Glucose 133. Potassium 3.3. LDH is 447. Reticulocyte count is 21.5. ASSESSMENT AND PLAN: 1. Sepsis secondary to multilobar pneumonia secondary to Staphylococcus aureus infection. At this point, we will continue with Zyvox. Today is day #3 of antibiotics. We have stopped cefepime. Her white cell count unfortunately continues to be high, although she is not spiking fever. Blood pressure is maintaining above 100 systolic blood pressure so at this point, we will continue with the same management. 2. Acute kidney injury, resolved. Most likely related to dehydration and protracted vomiting. We will continue to monitor. 3. Sickle cell crisis. Unfortunately, this patient continues to do have crisis. She had a hemoglobin of 6.0 today after 3 units of blood transfused. Her initial hemoglobin was 4.5. At this point, we are planning to provide 1 more unit of blood and keep checking reticulocyte count daily and CBC daily as well. 4. History of polysubstance abuse. The patient has well known history of opiate dependence here. At this point, I think that she started having a crisis so we will increase her doses of Dilaudid from 1 to 2 mg p.o. q.3 hours. She reports using marijuana and since admission reporting intractable nausea and vomiting. We will continue with Phenergan. 5. Depression. We will continue home medications. DISPOSITION: At this point, we will continue to monitor this patient closely. She is still very sick. We will also follow recommendations from Hematology/Oncology. cc: Tray Baker MD
[2019-09-21] MEDS: ZYVOX 600 MG/D5W 600 MG/300 ML IVPB IV SCH (13:38)
[2019-09-21] MEDS: TYLENOL PO PRN (14:36)
--- NOTE | 2019-09-21 19:54 | HEMO/ONC CONSULTATION ---
DATE: 09/21/2019 ADMITTING PHYSICIAN: Dr. Tray Baker. REQUESTING PHYSICIAN: Dr. Tray Baker. We appreciate this consult. CHIEF COMPLAINT: Sickle cell crisis. HISTORY OF PRESENT ILLNESS: Ms. Nina Henley is a 24-year-old female well known to Dr. Salmon with a history of sickle cell disease. The patient was last seen at our clinic in February 2019. She has been transferred to the [facility] at [facility] for possible transplant. The patient has had frequent admissions for pain crises. The patient reports that approximately 4 days prior to admission, she began having acute pain in her back, chest, and ribs, with nausea, vomiting, dizziness, shortness of breath, and decreased urinary output. On presentation to [facility], the patient was found to be in acute kidney injury. Hemoglobin was 4.6. The patient was hypotensive and was admitted to ICU with presumed sepsis. The patient has since been transferred back to the floor in fairly stable condition. Blood pressure has improved to 121/83. The patient was found to have multilobar pneumonia with sepsis and is currently on Zyvox. We are consulted as the patient is well known to us. PAST MEDICAL HISTORY: 1. Sickle cell disease with frequent crises. 2. Polysubstance abuse. 3. Avascular necrosis of the right hip. 4. Asthma. 5. Depression. PAST SURGICAL HISTORY: 1. Multiple port placements with removals. 2. Cholecystectomy. SOCIAL HISTORY: The patient does not use tobacco or illicit drugs. The patient does smoke marijuana. FAMILY HISTORY: The patient had a grandfather who from stroke associated with sickle cell disease. Additionally, the patient has 2 brothers with sickle cell disease. MEDICATIONS ON ADMISSION: 1. Hydrea. 2. Jadenu. 3. Fentanyl. 4. Folic acid. 5. [place] 10 mg. ALLERGIES: Latex, Demerol, and vancomycin. REVIEW OF SYSTEMS: A 14 point review of systems was obtained and is negative except for mentioned in HPI. PHYSICAL EXAMINATION: General: Ms. Henley is a very pleasant 24-year-old female who appears to be in pain at this time. Vital Signs: Temperature 98.4 degrees, blood pressure 121/83, heart rate 110, respirations 18, O2 saturation is 98% on room air. HEENT: Normocephalic, atraumatic. Mucous membranes are pale and somewhat dry. Sclera is slightly icteric. Extraocular movements intact. Neck: Supple. Lungs: Clear to auscultation bilaterally. Chest expansion is equal bilaterally. CV: S1, S2 is heard. The patient is tachycardic. Abdomen: Nondistended, nontender. Bowel sounds positive all quadrants. No rebound or guarding noted. Extremities: Without clubbing, cyanosis, or edema. Dermatologic: No rashes, bruises, or lesions. Neurologic: The patient is awake, alert, and oriented x3. She has no focal motor deficit. LABORATORY DATA: Hemoglobin is 6.0, hematocrit 17.4, white blood cell count is 29.50, platelets 73,000. Reticulocyte count 21.5. Sodium 147, potassium 3.6, chloride 113, CO2 is 18, BUN 28, creatinine 0.5, and glucose is 133. Bilirubin 2.69, alkaline phosphatase 138, AST is 18, ALT is 12. Urine drug screen is positive for opioids, oxycodone, and cannabinoids. ASSESSMENT AND PLAN: 1. Sickle cell crisis. The patient is not currently on Hydrea. She is being followed by [facility]. Would continue current pain management as scheduled. 2. Multilobar pneumonia with sepsis, currently on Zyvox. 3. Acute kidney injury, resolved. Creatinine is currently 0.5. 4. Anemia, secondary to #1. Would transfuse an additional 1 unit of packed red blood cells and continue to monitor. Would limit transfusions secondary to iron overload. Of note, the patient is on Jadenu. 5. Substance abuse, known. Pain medication per hospitalist. 6. We will follow along with you and make further recommendations pending outcomes. Again, this is Sheree Arellano, nurse practitioner, dictating a consult on [facility] for Dr. Rigo Salmon. The above reflects the history, exam, assessment, and plan of Dr. Salmon. Dictated by CORRINA Ramirez for Rigo Salmon MD cc: CORRINA Ramirez MD
[2019-09-21] MEDS: HYDREA PO SCH (20:56)
[2019-09-21] MEDS: PATIENT'S OWN MED PO SCH (20:57)
[2019-09-21] MEDS: SODIUM CHLORIDE 0.9% INJ SCH (20:58)
[2019-09-22] MEDS: DILAUDID PO PRN ×7 (00:11→22:56)
[2019-09-22] MEDS: ZYVOX 600 MG/D5W 600 MG/300 ML IVPB IV SCH ×2 (00:12→16:02)
[2019-09-22] MEDS: PHENERGAN IV PRN ×4 (00:12→19:37)
[2019-09-22] MEDS ORDERED: LASIX IV ONE (07:15)
[2019-09-22] MEDS: DUONEB (A & A) INH SCH ×5 (07:44→23:19)
[2019-09-22 08:03] LABS: INR 1.77; PTT 37.9 Seconds (22.3-41.8)
[2019-09-22] MEDS: TUMS EXTRA STRENGTH PO SCH (08:22)
[2019-09-22] MEDS: FOLIC ACID PO SCH (08:22)
[2019-09-22] MEDS: SODIUM CHLORIDE 0.9% INJ SCH (08:22)
[2019-09-22] MEDS: NEUTRA-PHOS PO SCH (08:22)
[2019-09-22] MEDS: PEPCID IV SCH ×2 (08:22→20:54)
[2019-09-22 08:44] LABS: RETIC% 0.42 % (0.8-2.1); RETIC-HE 20.6 PG (28.2-36.6)
[2019-09-22 08:54] LABS: ESTIMATED GFR > 60
[2019-09-22 09:00] LABS: AGAP 15; ALB/GLOB RATIO 0.7; ALBUMIN 2.3 g/dL (3.5-5.0); ALKALINE PHOSPHATASE 142 U/L (32-104); BUN 14 mg/dL (8-22); CHLORIDE 114 mmol/L (98-107); COSMO 289; CREATININE 0.4 mg/dL (0.5-0.9); GLUCOSE 99 mg/dL (70-104); GOT 23 U/L (10-30); GPT 10 U/L (10-36); MAGNESIUM 1.4 mg/dL (1.5-2.7); POTASSIUM 3.4 mmol/L (3.5-5.1); SODIUM 145 mmol/L (136-145); TCO2 16 mmol/L (25-35); TOTAL BILIRUBIN 2.29 mg/dL (0.20-1.00); TOTAL PROTEIN 5.4 g/dL (6.3-8.3)
[2019-09-22 09:11] LABS: BASO# 0.04 X1000 (0.0-0.2); BASO% 0.2 % (0.0-0.8); EOS# 0.17 X1000 (0.0-0.7); EOS% 0.8 % (0.0-10.0); HEMATOCRIT 18.1 % (37.0-47.0); HEMOGLOBIN 6.2 g/dL (12.0-16.0); IMM GRAN# 0.59 X1000 (0.0-0.04); IMM GRAN% 2.7 % (0.0-0.5); LYMPH# 3.06 X1000 (1.2-3.4); LYMPH% 13.9 % (20.5-51.1); MCH 28.1 PG (27-31); MCHC 34.3 g/dL (33-37); MCV 81.9 FL (81-99); MONO# 0.73 X1000 (0.11-0.59); MONO% 3.3 % (1.7-9.3); MPV 9.6 FL (7.4-10.4); NEUT# 17.35 X1000 (1.4-6.5); NEUT% 79.1 % (42.2-75.2); PLT 69 X1000 (130-400); RBC 2.21 XMIL (4.2-5.4); WBC 21.94 X1000 (4.8-10.8)
[2019-09-22 09:22] LABS: LYMPHS 18 % (21-51); SEGS 82 % (42-75); SICKLE CELLS 1+; TARGET CELLS 1+
[2019-09-22] MEDS ORDERED: POTASSIUM CHLORIDE 60 MEQ in NS 500 ML IV ONE (09:58)
[2019-09-22] MEDS ORDERED: SODIUM PHOSPHATE 35 MMOL in NS 250 ML IV ONE (09:58)
[2019-09-22] MEDS ORDERED: CALCIUM GLUCONATE 2 GM in NS 100 ML IV ONE (09:58)
[2019-09-22] MEDS ORDERED: MAGNESIUM SULFATE 2 GM/S.W.I. 2 GM/50 ML IVPB IV ONE (09:58)
[2019-09-22] MEDS ORDERED: NS 500 ML IV ONE (10:01)
[2019-09-22] MEDS ORDERED: TYLENOL PO ONE (10:01)
--- NOTE | 2019-09-22 10:21 | PROGRESS NOTE ---
DATE: 09/22/2019 SUBJECTIVE: Patient continues to be basically the same in comparing with yesterday, according to her. Continues to report pain all over. She is still feeling nauseated but less in comparing with yesterday. OBJECTIVE: Vital Signs: Temperature 98.6 degrees, heart rate 119, respiratory rate 28, blood pressure 146/82, O2 saturation 92% on room air. General Examination: This is a chronically ill- appearing, 24-year-old, -[place] female lying in bed, in mild distress because of nausea and pain all over. Cardiovascular Examination: S1 and S2 heard. Tachycardic but no murmurs, gallops, or rubs noted. Respiratory Examination: Clear bilaterally to auscultation with minimal coarse breath sounds noted in both pulmonary bases. Patient is not using any accessory muscles or having work of breathing. Abdomen: Soft. A little bit distended. Diffusely tender to palpation in the abdomen, mostly in the lower abdomen, but no signs of peritoneal irritation. Bowel sounds present and hypoactive. Extremities: No clubbing, cyanosis, or edema. Peripheral pulses present in both legs. Neurological Examination: The patient is alert and oriented x3. Moves 4 extremities. Laboratory Data: Pending at the time of my dictation. ASSESSMENT AND PLAN: 1. Sepsis secondary to multilobar pneumonia secondary to Staphylococcus aureus infection. The patient is on Zyvox day #4 of treatment. Cefepime has been stopped. We do not have the results of the CBC yet today. Blood pressure is okay. Yesterday, we had ordered a chest x- ray, AP and lateral, that basically showed worsening infiltrates. There are dense bilateral infiltrates, more prominent than on the prior study. Small right pleural effusion. At this point, she may have a volume overload because of the aggressive fluid resuscitation that we provided for sickle cell crisis and for acute kidney injury. We were going to reduce the amount of fluids from 150-75 mL per hour and 1 dose of Lasix 60 mg now. We will consult pulmonary. 2. Acute kidney injury, completely resolved. 3. Sickle cell crisis. We do not have the results of the hemoglobin today. We will transfuse 1 more unit of blood if hemoglobin is 7 or below. We are also checking reticulocyte count daily as well as LDH. From yesterday, it indicated that there is still hemolysis present. We will continue to monitor. 4. History of polysubstance abuse. Aware. I think this patient truly needs to be on pain medications. We will continue with Dilaudid. In this case, it is 2 mg by mouth every 3 hours. At home, she is taking 4 mg every 8 hours. We will continue to monitor. 5. Intractable nausea and vomiting, multifactorial and also related to marijuana abuse. That condition is getting better. We will continue with intravenous fluids and Phenergan. 6. Depression. We will continue home medication. 7. Disposition. We will continue to monitor this patient closely. Follow recommendations from hematology/oncology. 8. We will consult pulmonary and we will go from there. cc: Tray Baker MD
[2019-09-22] MEDS: NS 1,000 ML IV SCH (10:39)
[2019-09-22 12:03] LABS: ALLEN TEST YES; BE -2.1 mmoll (-3.0-3.0); BLOOD TYPE ARTERIAL; HCO3-(ACT) 23.3 mmoll (20.0-26.0); METHB 0.5 % (0.0-1.5); O2(CT) 9.6 mL/dL (15.0-23.0); PCO2(98.6) 32 mmHg (35-45); PO2(98.6) 80 mmHg (60-100); SAMPLE BLOOD; SAO2 99.2 % (95.0-100.0); THB 7.1 g/dL (11.5-17.4); pH(98.6) 7.44 (7.35-7.45)
[2019-09-22 12:04] LABS: MODALITY CANNULA
--- NOTE | 2019-09-22 12:36 | PROVIDER PROGRESS NOTE ---
Progress Note The patient has been seen and examined. A full dictation to follow.
[2019-09-22] MEDS: SODIUM CHLORIDE 0.9% INJ PRN ×2 (13:31→19:37)
[2019-09-22] MEDS: TUMS PO SCH ×2 (13:44→16:26)
[2019-09-22] MEDS: BENADRYL IV SCH (18:29)
[2019-09-22] MEDS: OFIRMEV 1000 MG/ISOTONIC SOLN 1,000 MG/100 ML BOTTLE IV SCH ×2 (18:32→22:55)
[2019-09-22] MEDS: HYDREA PO SCH ×2 (20:54→21:00)
--- NOTE | 2019-09-23 01:28 | CONSULTATION ---
DATE OF CONSULTATION: 09/22/2019 REQUESTING PROVIDER: Dr. Tray Carrera. REASON FOR CONSULTATION: Acute respiratory failure. HISTORY OF PRESENT ILLNESS: This is a 24-year-old female with a medical history of sickle cell disease, polysubstance dependence, right hip avascular necrosis, asthma, chronic leukocytosis, chronic anemia, and depression. She has been admitted since 09/18/2019 with septic shock and sickle cell crisis, with acute organ damage. CT of thorax, abdomen and pelvis without contrast showed possible pneumonia. She has been treated with a Zyvox daily and 1 dose of Zosyn since admission. She also received 3 units of red blood cell transfusion on 09/18/2019, and 1 unit of red blood cell transfusion on 09/21/2019. Her hemoglobin this morning is 6.2. She has been having tachypnea with respiratory rate up to the 40s since admission, which apparently has being improved since 09/20/2019. She was on room air most of the time, but currently is on nasal cannula at 2 L. She has had fever since this morning. The patient currently is moaning, crying and restless in the back with some moderate respiratory distress. She is tachypneic with respiratory rate up to 40s. She is complaining of severe pain in the chest and the back 8/10. She received Dilaudid every 3 hours, and the last dosage was given 2-1/2 hours ago. She does have some dry cough. There is no family at the bedside, and the patient does not answer questions most of time. All other information is obtained from the E-chart. PAST MEDICAL HISTORY: 1. Asthma. 2. Sickle cell disease with frequent crisis followed by Dr. Salmon and [facility] for possible transplant. Her last sickle cell crisis was in October of 2018. She receives blood at least once a month. 3. Polysubstance dependence including opioids. 4. Avascular necrolysis of the right hip and left shoulder. 5. Chronic leukocytosis. 6. History of sepsis in October of 2018 secondary to Klebsiella pneumonia from the right side infected pole, and bilateral pneumonia with septic emboli. 7. Depression. 8. Chronic anemia and history of severe hemolytic anemia. PAST SURGICAL HISTORY: 1. Multiple port insertions and removal. 2. Cholecystectomy. SOCIAL HISTORY: The patient has no tobacco or alcohol use. She smokes marijuana on occasion. She has history of polysubstance use and abuse. FAMILY HISTORY: Positive for sickle cell disease. ALLERGIES: Latex, Demerol, vancomycin. REVIEW OF SYSTEMS: Limited to be obtained secondary to the patient's pain and respiratory distress. PHYSICAL EXAMINATION: Vital Signs: Temperature 100.4, blood pressure 134/80, pulse 118, respiratory rate 20, oxygen saturation 95% on room air. General: The patient is moaning and restless with moderate respiratory distress, on nasal cannula at 2 L, with oxygen saturation in the high 90s. HEENT: Atraumatic, normocephalic. Trachea midline. Mucosa pink and slightly dry. Respiratory: Increased work of breathing, but no accessory muscle use. Symmetrical excursion. Clear to auscultation bilaterally. Cardiovascular: Sinus tachycardia. S1, S2 noted. Extremities: No pedal edema. No cyanosis. No clubbing. Dorsalis pedis 2+ bilaterally. Neurologic: Alert and oriented x3. Marbled speech at times. Follows simple commands. LABORATORY DATA: White blood cells 21.94, hemoglobin 6.2, hematocrit 18.1, platelets 69,000. Sodium 145, potassium 3.4, chloride 114, carbon dioxide 16, BUN 14, creatinine 0.4, glucose 99. ABG: PH 7.44, pCO2 of 32, PO2 of 80, HC03 of 23.3, base excess -2.1, oxyhemoglobin 95.0. ProBNP 3729. ASSESSMENT: This is a 24-year-old female with a medical history of asthma, sickle cell disease, polysubstance abuse, avascular necrosis, chronic leukocytosis, depression and chronic anemia. She has been admitted since 09/18/2019 with septic shock, pneumonia and sickle cell crisis, with acute organ damage. 1. Acute respiratory distress. 2. Possible pneumonia with small right pleural effusion. 3. Sickle cell crisis with hemolytic anemia. 4. Bacteremia secondary to gram positive cocci Staphylococcus aureus. PLAN: 1. Continue supplemental oxygen as needed. 2. Continue antibiotic and bronchodilators. 3. Check ABG and proBNP. 4. Follow up with CMP and CBC. 5. Diuretic as needed. 6. Follow up with chest x-ray. 7. Further recommendations pending hospital course. Thank you for the courtesy of this consultation. Dictated by CORRINA Holder for Raj Sousa MD cc: CORRINA Holder MD [facility] [place]
[2019-09-23] MEDS: DILAUDID PO PRN ×6 (02:11→20:18)
[2019-09-23] MEDS: PHENERGAN IV PRN ×4 (02:11→22:32)
[2019-09-23] MEDS: DUONEB (A & A) INH SCH ×5 (03:39→20:17)
[2019-09-23] MEDS: PATIENT'S OWN MED PO SCH ×2 (03:44→21:25)
[2019-09-23] MEDS: ZYVOX 600 MG/D5W 600 MG/300 ML IVPB IV SCH ×2 (04:40→15:16)
[2019-09-23] MEDS: OFIRMEV 1000 MG/ISOTONIC SOLN 1,000 MG/100 ML BOTTLE IV SCH ×3 (04:40→21:25)
[2019-09-23 07:14] LABS: INR 1.64; PROTIME 19.7 Seconds (11.0-16.0)
[2019-09-23 07:15] LABS: PTT 41.2 Seconds (22.3-41.8)
[2019-09-23 07:18] LABS: BASO# 0.03 X1000 (0.0-0.2); BASO% 0.2 % (0.0-0.8); EOS# 0.27 X1000 (0.0-0.7); EOS% 1.4 % (0.0-10.0); HEMATOCRIT 18.3 % (37.0-47.0); IMM GRAN# 0.38 X1000 (0.0-0.04); LYMPH# 2.57 X1000 (1.2-3.4); LYMPH% 13.2 % (20.5-51.1); MCH 27.3 PG (27-31); MCHC 32.8 g/dL (33-37); MCV 83.2 FL (81-99); MONO# 0.59 X1000 (0.11-0.59); MPV 10.1 FL (7.4-10.4); NEUT# 15.63 X1000 (1.4-6.5); NEUT% 80.2 % (42.2-75.2); PLT 82 X1000 (130-400); RDW 16.7 % (11.5-14.5); RETIC% 1.16 % (0.8-2.1); WBC 19.47 X1000 (4.8-10.8)
--- NOTE | 2019-09-23 07:26 | Diag Imaging Result Doc PS360 ---
EXAM: CHEST-1 VIEW 09/23/2019 HISTORY: SOB TECHNIQUE: AP portable at 0629 COMMENT: There is a right pleural effusion. This appears worse than on 09/21/2019. There are patchy alveolar opacities bilaterally which appear to also have worsened somewhat particularly on the right side. Some of this is presumably due to compression by the increased pleural fluid volume. The heart size remains enlarged. There is a PICC line on the left and a Port-A-Cath on the right with their tips in the superior vena cava. IMPRESSION: Worsened pulmonary edema and right pleural effusion. Electronically signed by Gary Quiñones 09/23/2019 7:24 AM
[2019-09-23 07:39] LABS: AGAP 13; ALB/GLOB RATIO 0.7; ALBUMIN 2.5 g/dL (3.5-5.0); ALKALINE PHOSPHATASE 152 U/L (32-104); BUN 10 mg/dL (8-22); CALCIUM 7.4 mg/dL (8.8-10.2); CHLORIDE 105 mmol/L (98-107); COSMO 276; CREATININE 0.4 mg/dL (0.5-0.9); ESTIMATED GFR > 60; GLUCOSE 124 mg/dL (70-104); GOT 17 U/L (10-30); GPT 10 U/L (10-36); MAGNESIUM 1.3 mg/dL (1.5-2.7); POTASSIUM 3.5 mmol/L (3.5-5.1); SODIUM 138 mmol/L (136-145); TCO2 20 mmol/L (25-35); TOTAL BILIRUBIN 2.45 mg/dL (0.20-1.00)
[2019-09-23] MEDS: PEPCID IV SCH ×2 (08:29→21:16)
[2019-09-23] MEDS: TUMS PO SCH ×3 (08:30→17:31)
[2019-09-23] MEDS: FOLIC ACID PO SCH (08:31)
[2019-09-23] MEDS: NS 1,000 ML IV SCH (08:31)
[2019-09-23] MEDS ORDERED: SODIUM PHOSPHATE 35 MMOL in NS 250 ML IV ONE (08:43)
[2019-09-23] MEDS ORDERED: CALCIUM GLUCONATE 2 GM in NS 100 ML IV ONE (08:43)
[2019-09-23 08:45] LABS: ANISOCYTOSIS 1+; BANDS 1 % (0-1); EOS 4 % (1-10); HYPOCHROM 1+; LYMPHS 14 % (21-51); MICROCYTOSIS 2+; MONO 1 % (1-9); NRBC 20 % (0-0); POIKILOCYTOSIS 1+; POLYCHROM OCCASIONAL; SEGS 80 % (42-75); SICKLE CELLS OCCASIONAL; TARGET CELLS 1+
[2019-09-23] MEDS ORDERED: BENADRYL IV ONE ×2 (08:51→21:00)
[2019-09-23] MEDS ORDERED: TYLENOL PO ONE (08:51)
[2019-09-23] MEDS ORDERED: NS 500 ML IV ONE (08:51)
[2019-09-23] MEDS ORDERED: MAGNESIUM SULFATE 2 GM/S.W.I. 2 GM/50 ML IVPB IV ONE (09:32)
[2019-09-23] MEDS ORDERED: LASIX IV ONE (09:33)
--- NOTE | 2019-09-23 10:27 | PROGRESS NOTE ---
DATE: 09/23/2019 SUBJECTIVE: Patient reports still feeling short of breath. He continues to report pain all over, and feeling nauseated. OBJECTIVE: Vital Signs: Temperature 98.7, heart rate 115, respiratory rate 22, blood pressure 130/77, and O2 saturation 96% on 2 L nasal cannula. General: This is a chronically ill appearing 24-year-old female lying in bed in mild distress because of nausea and pain all over. Cardiovascular: S1, S2 heard. Tachycardic but no murmurs, gallops, or rubs noted. Respiratory: Crackles and coarse breath sounds noted in both pulmonary bases. Patient not using any accessory muscles or having work of breathing. Abdomen: Soft. A little bit distended. Diffuse tenderness to palpation in the abdomen, but no signs of peritoneal irritation. Bowel sounds present. No organomegaly. Extremities: No clubbing, cyanosis, or edema. Peripheral pulses present in both legs. Neurological: Patient is alert and oriented x3. Moves all 4 extremities. LABORATORY DATA: White cell count 19.47, hemoglobin 6.0, hematocrit 18.3, and platelets 82,000 with INR 1.64. The BMP reveals sodium 138, potassium 3.5 but normal creatinine, calcium 7.4, phosphorus 2.0 and magnesium 1.3 with LDH 354, and ProBNP of 4064. ASSESSMENT/PLAN: 1. Sepsis secondary to multilobar pneumonia secondary to Staphylococcus aureus. The patient continues to have elevated white cell count. She is on Zyvox day number 5 of treatment. She usually has elevated white cell count during her previous hospitalization. X- ray basically yesterday showed worsening infiltrates pulmonary has been consulted this morning. The patient has pulmonary edema with small right pleural effusion. At this point, we will provide 1 dose of Lasix 80 mg, and will continue with 40 mg IV q.12 hours. We will check an x-ray tomorrow, and if she is doing better we will stop the medication. 2. Acute kidney injury. Completely resolved. 3. Sickle cell crisis. Hemoglobin is 6.0 today. This is the same basically as yesterday. We tried to provide 1 unit of blood but she had a transfusion reaction. Today, we will plan to provide 1 more unit and provide premedication for this patient. In this case, Tylenol and Benadryl. LDH continues to be higher. We will continue to monitor. Hematology/Oncology following this patient. 4. History of polysubstance abuse aware. 5. Intractable nausea and vomiting. We will continue with the Phenergan. 6. Depression. We will continue home medications. 7. Disposition. I think this patient is not looking good today. We will transfer her to our PVC unit. We will continue to monitor this patient closely. cc: Tray Baker MD MTDD
--- NOTE | 2019-09-23 13:01 | PROVIDER PROGRESS NOTE ---
Progress Note Dr. Sousa Progress Note/Pulmonary and or critical care We appreciated progress of care, Complications, change in diagnosis, and instructions to patient under direct supervision of Dr. Sousa. Subjective: We note the level of consciousness, bed (chair) position, family presence (if any), level of lethargy, feeling of symptoms, and changes from baseline condition/symptom. The patient feels: worse She is lying in bed with tachypnea. She c/o pain on chest, back and arms /. She has dry cough at times and diarrhea every other day. She is on room air now. Objective: Vital Signs: We reviewed EMR current values for Pulse rate, Blood pressure, Pulse rate, respiratory rate and Pulse oximetry. Also noted other values and trends if present (e.g. I/O, CVP). Vital Signs 09/22/19 16:28 09/22/19 17:01 09/22/19 18:37 Temperature 102.9 F H 98.5 F Pulse Rate 115 H 130 H Respiratory Rate 26 H Blood Pressure 137/86 140/73 O2 Sat by Pulse Oximetry 87 L 09/22/19 20:00 09/22/19 20:02 09/23/19 00:19 Temperature 99.9 F H 98.9 F Pulse Rate 121 H 113 H 122 H Respiratory Rate 25 H 22 26 H Blood Pressure 129/73 127/77 O2 Sat by Pulse Oximetry 96 95 94 L 09/23/19 03:32 09/23/19 07:34 09/23/19 08:02 Temperature 99.1 F 98.7 F Pulse Rate 120 H 115 H 117 H Respiratory Rate 26 H 23 18 Blood Pressure 129/82 130/77 O2 Sat by Pulse Oximetry 94 L 96 93 L 09/23/19 11:15 Temperature 101.4 F H Pulse Rate 108 H Respiratory Rate 22 Blood Pressure 128/80 O2 Sat by Pulse Oximetry Intake & Output 09/22/19 09/23/19 09/23/19 19:59 07:59 19:59 Intake Total 2412 / 5711 3299 / 5711 Output Total 1999 1350 / 3350 3200 / 3200 Balance 412 / 2361 1949 / 2361 -3200 / -3200 Intake: Intake, IV Amount 2819 / 2819 Intake, IVPB 1662 / 1662 Intake, Oral Amount 750 / 1230 480 / 1230 Output: Output, Urine Void Amount 650 / 650 Output, Urine Saucedo Amount 2000 / 2700 700 / 2700 3200 / 3200 Output, Fecal Device 0 / 0 Output, Emesis Amount 0 / 0 Other: Percent of Meal Consumed 75% Number of Continent Voids Not 0 Measured Number of Incontinent Voids 0 Number of Bowel Movements 3 2 Physical Examination: General: Lying in bed with no acute distress noted. HEENT: Trachea midline. Mucus pink and moist. Chest: Tachypnea. Increased work of breathing, but no accessory muscle use. Symmetrical excursion. Clear to auscultation bilaterally. CVS: S1 and S2 noted. Abdomen: Soft. Mildly distended. General tenderness. Bowel sounds present. Extremities: No pedal edema. Neuro: A/Ox3; speech fluent; follow simple commands. Labs and Radiology: Reviewed available labs and radiology values available at time of EMR review. Laboratory Results 09/22/19 09/23/19 09/23/19 06:53 06:20 06:20 WBC 19.47 H RBC 2.20 L Hgb 6.0 L Hct 18.3 L MCV 83.2 MCH 27.3 MCHC 32.8 L RDW Std Deviation 16.7 H Plt Count 82 L MPV 10.1 Immature Gran % (Auto) 2.0 H Neut % (Auto) 80.2 H Lymph % (Auto) 13.2 L [place] % (Auto) 3.0 Eos % (Auto) 1.4 Baso % (Auto) 0.2 Immature Gran # (Auto) 0.38 H Neut # (Auto) 15.63 H Lymph # (Auto) 2.57 [place] # (Auto) 0.59 Eos # (Auto) 0.27 Baso # (Auto) 0.03 Corrected WBC (Man) 16.20 Segmented Neutrophils 80 H Band Neutrophils 1 Lymphocytes 14 L Monocytes 1 Eosinophils 4 Nucleated RBCs 20 H Hypochromia 1+ Polychromasia OCCASIONAL Poikilocytosis 1+ Anisocytosis 1+ Microcytosis 2+ Sickle Cells OCCASIONAL Target Cells 1+ Percent Retic 1.16 Retic Hgb Equivalent 19.0 L PT INR PTT (Actin FS) Sodium 138 Potassium 3.5 Chloride 105 Carbon Dioxide 20 L Anion Gap 13 BUN 10 Creatinine 0.4 L Estimated GFR/1.73 m2 > 60 BUN/Creatinine Ratio 25 Glucose 124 H Calculated Osmolality 276 Calcium 7.4 L Phosphorus Magnesium 1.3 L Total Bilirubin 2.45 H AST 17 ALT 10 Alkaline Phosphatase 152 H Lactate Dehydrogenase [id number] Pept Total Protein 6.0 L Albumin 2.5 L Globulin 3.5 Albumin/Globulin Ratio 0.7 Blood Type O POSITIVE Antibody Screen NEGATIVE Crossmatch See Detail 09/23/19 09/23/19 09/23/19 06:20 06:20 06:20 WBC RBC Hgb Hct MCV MCH MCHC RDW Std Deviation Plt Count MPV Immature Gran % (Auto) Neut % (Auto) Lymph % (Auto) [place] % (Auto) Eos % (Auto) Baso % (Auto) Immature Gran # (Auto) Neut # (Auto) Lymph # (Auto) [place] # (Auto) Eos # (Auto) Baso # (Auto) Corrected WBC (Man) Segmented Neutrophils Band Neutrophils Lymphocytes Monocytes Eosinophils Nucleated RBCs Hypochromia Polychromasia Poikilocytosis Anisocytosis Microcytosis Sickle Cells Target Cells Percent Retic Retic Hgb Equivalent PT 19.7 H INR 1.64 PTT (Actin FS) 41.2 Sodium Potassium Chloride Carbon Dioxide Anion Gap BUN Creatinine Estimated GFR/1.73 m2 BUN/Creatinine Ratio Glucose Calculated Osmolality Calcium Phosphorus 2.0 L Magnesium Total Bilirubin AST ALT Alkaline Phosphatase Lactate Dehydrogenase 354 H [id number]-Qjqricjpudj Pept Total Protein Albumin Globulin Albumin/Globulin Ratio Blood Type Antibody Screen Crossmatch 09/23/19 06:20 WBC RBC Hgb Hct MCV MCH MCHC RDW Std Deviation Plt Count MPV Immature Gran % (Auto) Neut % (Auto) Lymph % (Auto) [place] % (Auto) Eos % (Auto) Baso % (Auto) Immature Gran # (Auto) Neut # (Auto) Lymph # (Auto) [place] # (Auto) Eos # (Auto) Baso # (Auto) Corrected WBC (Man) Segmented Neutrophils Band Neutrophils Lymphocytes Monocytes Eosinophils Nucleated RBCs Hypochromia Polychromasia Poikilocytosis Anisocytosis Microcytosis Sickle Cells Target Cells Percent Retic Retic Hgb Equivalent PT INR PTT (Actin FS) Sodium Potassium Chloride Carbon Dioxide Anion Gap BUN Creatinine Estimated GFR/1.73 m2 BUN/Creatinine Ratio Glucose Calculated Osmolality Calcium Phosphorus Magnesium Total Bilirubin AST ALT Alkaline Phosphatase Lactate Dehydrogenase [id number]-[id number] Pept 4064 H Total Protein Albumin Globulin Albumin/Globulin Ratio Blood Type Antibody Screen Crossmatch Dr. Sousa evaluated and additional note below. Evaluation time in minutes: 10 minutes Assessment: Acute respiratory distress Pneumonia secondary to Staphylococcus aureus with pulmonary edema, right pleural effusion and proBNP elevation. Worsened. Sickle cell crisis with hemolysis and severe pain Polysubstance abuse including opioid and marijuana Severe anemia secondary to sickle cell crisis Plan Continue current treatment and supportive care per admitting and other teams on the case. Bronchodilators Antibiotics Appropriate DVT and GI prophylaxis Transfer to [facility] Physical Therapy Transfer to [facility] was appreciated from Admitting MD and other teams on the case.
[2019-09-23] MEDS: DILAUDID IV PRN ×2 (18:07→22:31)
[2019-09-23] MEDS: BENADRYL IV SCH (18:07)
[2019-09-23] MEDS: LASIX IV SCH (21:16)
[2019-09-23] MEDS: HYDREA PO SCH ×2 (21:16→21:25)
[2019-09-23] MEDS: NS 500 ML IV SCH (22:34)
[2019-09-23] MEDS ORDERED: NS NEB INH SCH (23:15)
[2019-09-24] MEDS: DILAUDID PO PRN ×6 (01:54→22:05)
[2019-09-24] MEDS: ATROVENT NEB INH SCH ×3 (03:36→16:04)
[2019-09-24] MEDS: XOPENEX NEB INH SCH ×3 (03:36→16:04)
[2019-09-24] MEDS: DILAUDID IV PRN ×4 (03:52→20:02)
[2019-09-24] MEDS: ZOFRAN IV PRN (03:52)
[2019-09-24] MEDS: ZYVOX 600 MG/D5W 600 MG/300 ML IVPB IV SCH ×2 (03:53→20:38)
[2019-09-24] MEDS: OFIRMEV 1000 MG/ISOTONIC SOLN 1,000 MG/100 ML BOTTLE IV SCH ×4 (03:53→20:39)
[2019-09-24] MEDS: PHENERGAN IV PRN ×3 (05:19→20:38)
[2019-09-24 06:21] LABS: BASO# 0.03 X1000 (0.0-0.2); BASO% 0.1 % (0.0-0.8); EOS# 0.29 X1000 (0.0-0.7); EOS% 1.2 % (0.0-10.0); HEMATOCRIT 21.5 % (37.0-47.0); HEMOGLOBIN 7.1 g/dL (12.0-16.0); IMM GRAN# 0.24 X1000 (0.0-0.04); LYMPH# 2.48 X1000 (1.2-3.4); LYMPH% 10.4 % (20.5-51.1); MCV 84.6 FL (81-99); MONO# 0.72 X1000 (0.11-0.59); MPV 9.9 FL (7.4-10.4); NEUT# 20.01 X1000 (1.4-6.5); NEUT% 84.3 % (42.2-75.2); PLT 95 X1000 (130-400); RBC 2.54 XMIL (4.2-5.4); RDW 16.9 % (11.5-14.5); WBC 23.77 X1000 (4.8-10.8)
[2019-09-24 06:22] LABS: INR 1.52; PROTIME 18.6 Seconds (11.0-16.0)
[2019-09-24 06:23] LABS: PTT 44.4 Seconds (22.3-41.8)
[2019-09-24 06:28] LABS: RETIC% 3.02 % (0.8-2.1); RETIC-HE 19.4 PG (28.2-36.6)
[2019-09-24 06:36] LABS: AGAP 10; ALB/GLOB RATIO 0.7; ALBUMIN 2.6 g/dL (3.5-5.0); ALKALINE PHOSPHATASE 161 U/L (32-104); BUN 7 mg/dL (8-22); CALCIUM 7.3 mg/dL (8.8-10.2); CHLORIDE 100 mmol/L (98-107); COSMO 274; CREATININE 0.4 mg/dL (0.5-0.9); ESTIMATED GFR > 60; GLUCOSE 96 mg/dL (70-104); GOT 16 U/L (10-30); GPT 8 U/L (10-36); MAGNESIUM 1.2 mg/dL (1.5-2.7); POTASSIUM 3.1 mmol/L (3.5-5.1); SODIUM 138 mmol/L (136-145); TCO2 28 mmol/L (25-35); TOTAL PROTEIN 6.2 g/dL (6.3-8.3)
--- NOTE | 2019-09-24 08:20 | PROVIDER PROGRESS NOTE ---
Progress Note Pulmonary additional note: I have seen and examined the case, reviewed the EMR, labs, latest images and other medical teams notes. Also reviewed the COOPERER notes and signed necessary form(s). I have noted changes in condition if any from yesterday and did orders. Please see also signed progress sheet. 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 I reviewed notes from Dr. Carrera and ordered CXR. A. Pneumonia, sickle cell crisis and sepsis. An element of fluid overload. I spent 32 minutes in this process.
--- NOTE | 2019-09-24 08:24 | Diag Imaging Result Doc PS360 ---
EXAM: CHEST-2 VIEWS 09/24/2019 HISTORY: pulmonary edema TECHNIQUE: PA and lateral chest COMMENT: Compared to 09/23/2019 the pleural fluid collection on the right has apparently diminished. The inspiration is also better. There continue to be patchy alveolar opacities bilaterally particularly in the right lung although there has been some improvement in the left lower lobe. IMPRESSION: Improved pulmonary edema and right pleural effusion. Electronically signed by Gary Quiñones 09/24/2019 8:22 AM
[2019-09-24] MEDS: TUMS PO SCH ×4 (08:33→16:58)
[2019-09-24] MEDS: LASIX IV SCH ×2 (08:33→20:39)
[2019-09-24] MEDS: FOLIC ACID PO SCH (08:33)
[2019-09-24] MEDS: PEPCID IV SCH ×2 (08:34→20:38)
[2019-09-24] MEDS ORDERED: SODIUM PHOSPHATE 35 MMOL in NS 250 ML IV ONE (08:53)
[2019-09-24] MEDS ORDERED: CALCIUM GLUCONATE 2 GM in NS 100 ML IV ONE (08:53)
[2019-09-24] MEDS ORDERED: MAGNESIUM SULFATE 4 GM/S.W.I. 4 GM/100 ML IVPB IV ONE (08:53)
[2019-09-24] MEDS: CLINIMIX E 4.25%-5% SOLUTION 1,000 ML IV SCH (10:18)
[2019-09-24] MEDS: LIPOSYN 20% 250 ML IV SCH (10:18)
--- NOTE | 2019-09-24 11:19 | PROGRESS NOTE ---
DATE: 09/24/2019 SUBJECTIVE: Patient reports less short of breath. She is feeling still nauseated, unfortunately, and pain all over. OBJECTIVE: Vital Signs: Temperature 99.2 degrees, heart rate 100, respiratory rate 29, blood pressure 139/91, O2 saturation 92% on room air. General Examination: This is a chronically ill- appearing, 24-year-old, female lying in bed. No acute distress. Cardiovascular Examination: S1 and S2 heard. Tachycardic but no murmurs, gallops, or rubs noted. Respiratory Examination: Crackles and coarse breath sounds noted in both pulmonary bases. Patient is not using any accessory muscles or having work of breathing. Abdomen: A little bit distended. She is tender to palpation in the abdomen but no signs of peritoneal irritation. Bowel sounds present. No organomegaly. Extremities: No clubbing, cyanosis, or edema. Peripheral pulses present in both legs. Neurological Examination: The patient is alert and oriented x3. Moves 4 extremities. Laboratory Data: White cell count 23.77, hemoglobin 7.1, hematocrit 31.5, platelets 95,000, reticulocyte count is 19.4. INR 1.52. Potassium 3.1, calcium 7.3, phosphorus 2.4, magnesium 1.2. Total bilirubin 2.2. ASSESSMENT AND PLAN: 1. Sepsis secondary to multilobar pneumonia secondary to Staphylococcus aureus. The patient continues to have elevated white cell count and she is not on any steroids. White cell count today is 23,000. Having a mild grade fever. She is on Zyvox, day #6 of treatment. Because of an x-ray that showed worsening infiltrates, pulmonary critical care has been consulted. We will follow recommendations. We put her on Lasix 40 mg intravenous every 12 hours. The x-ray from this morning showed improved pulmonary edema and right pleural effusion. I think we will continue with Lasix for the time-being. 2. Acute kidney injury, completely resolved. 3. Sickle cell crisis. After we transfused 1 unit of blood, hemoglobin is more stable. The reticulocyte count is still low. We will continue to monitor. Hematology/oncology is also following this patient. 4. History of polysubstance abuse. Aware. 5. Intractable nausea and vomiting. We will continue with Phenergan. Patient is not able to eat completely fine so we will add Clinimix and lipids, and go from there. 6. Depression. We will continue home medications. 7. Disposition. Patient will continue in the PVC unit. cc: Tray Baker MD
--- NOTE | 2019-09-24 14:25 | PROVIDER PROGRESS NOTE ---
Progress Note Dr. Sousa Progress Note/Pulmonary and or critical care We appreciated progress of care, Complications, change in diagnosis, and instructions to patient under direct supervision of Dr. Sousa. Subjective: We note the level of consciousness, bed (chair) position, family presence (if any), level of lethargy, feeling of symptoms, and changes from baseline condition/symptom. Patient states I am better. She is lying in bed with tachypnea and tachycardia. She still c/o pain on chest, back and arms. She still has diarrhea. She is NC 4L and tolerates well. She received one unit of RBC yesterday. Objective: Vital Signs: We reviewed EMR current values for Pulse rate, Blood pressure, Pulse rate, respiratory rate and Pulse oximetry. Also noted other values and trends if present (e.g. I/O, CVP). Vital Signs 09/23/19 19:49 09/23/19 20:17 09/23/19 22:42 Temperature 99.4 F 99.8 F H Pulse Rate 113 H 117 H Respiratory Rate 32 H 24 Blood Pressure 147/97 140/80 O2 Sat by Pulse Oximetry 98 99 99 09/23/19 22:57 09/23/19 23:06 09/23/19 23:12 Temperature 99.2 F 99.2 F 100.9 F H Pulse Rate 115 H 115 H 117 H Respiratory Rate 22 22 22 Blood Pressure 137/87 137/87 130/79 O2 Sat by Pulse Oximetry 100 100 99 09/24/19 03:39 09/24/19 07:23 09/24/19 08:53 Temperature 100.1 F H 99.2 F Pulse Rate 119 H 109 H 105 H Respiratory Rate 24 29 H 14 Blood Pressure 156/95 139/91 O2 Sat by Pulse Oximetry 99 98 09/24/19 12:00 09/24/19 16:00 09/24/19 16:04 Temperature 99.2 F 100.6 F H Pulse Rate 101 H 116 H 115 H Respiratory Rate 21 22 14 Blood Pressure 160/99 126/77 O2 Sat by Pulse Oximetry 96 95 96 Intake & Output 09/23/19 09/24/19 09/24/19 19:59 07:59 19:59 Intake Total 240 / 2230 1989 / 223 965 / 965 Output Total 3200 / 5100 1900 / 5100 1600 / 1600 Balance -2960 / -2870 90 / -2870 -635 / -635 Intake: Intake, IV Amount 500 / 500 Intake, IVPB 500 / 500 Intake, Blood Product Amount 350 / 350 Leukoreduced Pc E0336 Unit 350 / 350 [id number] Intake, Oral Amount 240 / 1380 1140 / 1380 465 / 465 Output: Output, Urine Saucedo Amount 3200 / 5100 1900 / 5100 1600 / 1600 Other: Percent of Meal Consumed 0 0 Number of Bowel Movements 1 Physical Examination: General: Lying in bed with mild distress noted. HEENT: Trachea midline. Mucus pink and slightly dry. Chest: Tachypnea. Increased work of breathing, but no accessory muscle use. Symmetrical excursion. Auscultation reveals inspiratory crackles bibasilarly. CVS: Sinus tachycardia. Abdomen: Soft. Mildly distended. General tenderness. Bowel sounds present. Extremities: No pedal edema. Neuro: A/Ox3; speech fluent; follow simple commands. Labs and Radiology: Reviewed available labs and radiology values available at time of EMR review. Laboratory Results 09/22/19 09/24/19 09/24/19 06:53 05:15 05:15 WBC 23.77 H RBC 2.54 L Hgb 7.1 L D Hct 21.5 L MCV 84.6 MCH 28.0 MCHC 33.0 RDW Std Deviation 16.9 H Plt Count 95 L MPV 9.9 Immature Gran % (Auto) 1.0 H Neut % (Auto) 84.3 H Lymph % (Auto) 10.4 L [place] % (Auto) 3.0 Eos % (Auto) 1.2 Baso % (Auto) 0.1 Immature Gran # (Auto) 0.24 H Neut # (Auto) 20.01 H Lymph # (Auto) 2.48 [place] # (Auto) 0.72 H Eos # (Auto) 0.29 Baso # (Auto) 0.03 Percent Retic Retic Hgb Equivalent PT INR PTT (Actin FS) Sodium 138 Potassium 3.1 L Chloride 100 Carbon Dioxide 28 Anion Gap 10 BUN 7 L Creatinine 0.4 L Estimated GFR/1.73 m2 > 60 BUN/Creatinine Ratio 18 Glucose 96 Calculated Osmolality 274 Calcium 7.3 L Phosphorus Magnesium 1.2 L Total Bilirubin 2.20 H AST 16 ALT 8 L Alkaline Phosphatase 161 H Total Protein 6.2 L Albumin 2.6 L Globulin 3.6 Albumin/Globulin Ratio 0.7 Blood Type O POSITIVE Antibody Screen NEGATIVE Crossmatch See Detail 09/24/19 09/24/19 09/24/19 05:15 05:15 05:15 WBC RBC Hgb Hct MCV MCH MCHC RDW Std Deviation Plt Count MPV Immature Gran % (Auto) Neut % (Auto) Lymph % (Auto) [place] % (Auto) Eos % (Auto) Baso % (Auto) Immature Gran # (Auto) Neut # (Auto) Lymph # (Auto) [place] # (Auto) Eos # (Auto) Baso # (Auto) Percent Retic 3.02 H Retic Hgb Equivalent 19.4 L PT 18.6 H INR 1.52 PTT (Actin FS) 44.4 H Sodium Potassium Chloride Carbon Dioxide Anion Gap BUN Creatinine Estimated GFR/1.73 m2 BUN/Creatinine Ratio Glucose Calculated Osmolality Calcium Phosphorus 2.4 L Magnesium Total Bilirubin AST ALT Alkaline Phosphatase Total Protein Albumin Globulin Albumin/Globulin Ratio Blood Type Antibody Screen Crossmatch Dr. Sousa evaluated and additional note below. Evaluation time in minutes: 31 minutes Assessment: Acute respiratory distress Multilobar pneumonia secondary to Staphylococcus aureus with pulmonary edema and right pleural effusion. Improving. Sickle cell crisis with hemolysis and severe pain Polysubstance abuse including opioid and marijuana Severe anemia secondary to sickle cell crisis Plan Continue current treatment and supportive care per admitting and other teams on the case. Bronchodilators Antibiotics Appropriate DVT and GI prophylaxis Physical Therapy Input was appreciated from Admitting MD and other teams on the case. See additional notes of Dr. Sousa.
[2019-09-24] MEDS: BENADRYL IV SCH ×2 (16:57→17:17)
[2019-09-24] MEDS: NS 500 ML IV SCH (17:18)
[2019-09-24] MEDS: PATIENT'S OWN MED PO SCH (20:38)
[2019-09-24] MEDS: HYDREA PO SCH ×2 (20:39→20:42)
[2019-09-25] MEDS: DILAUDID IV PRN ×5 (00:38→21:26)
[2019-09-25] MEDS: XOPENEX NEB INH SCH ×5 (01:44→21:03)
[2019-09-25] MEDS: ATROVENT NEB INH SCH ×5 (01:44→21:08)
[2019-09-25] MEDS: CLINIMIX E 4.25%-5% SOLUTION 1,000 ML IV SCH ×2 (01:58→14:30)
[2019-09-25] MEDS: OFIRMEV 1000 MG/ISOTONIC SOLN 1,000 MG/100 ML BOTTLE IV SCH ×5 (01:59→21:39)
[2019-09-25] MEDS: DILAUDID PO PRN ×4 (02:47→14:51)
[2019-09-25] MEDS: PHENERGAN IV PRN ×4 (04:36→21:27)
[2019-09-25 06:23] LABS: INR 1.35; PROTIME 16.9 Seconds (11.0-16.0)
[2019-09-25 06:24] LABS: PTT 44.1 Seconds (22.3-41.8)
[2019-09-25 06:26] LABS: BASO# 0.02 X1000 (0.0-0.2); BASO% 0.1 % (0.0-0.8); EOS# 0.17 X1000 (0.0-0.7); EOS% 0.7 % (0.0-10.0); HEMATOCRIT 22.3 % (37.0-47.0); HEMOGLOBIN 7.2 g/dL (12.0-16.0); IMM GRAN# 0.14 X1000 (0.0-0.04); IMM GRAN% 0.6 % (0.0-0.5); LYMPH# 2.35 X1000 (1.2-3.4); LYMPH% 10.2 % (20.5-51.1); MCH 27.8 PG (27-31); MCHC 32.3 g/dL (33-37); MCV 86.1 FL (81-99); MONO# 0.56 X1000 (0.11-0.59); MONO% 2.4 % (1.7-9.3); MPV 10.4 FL (7.4-10.4); NEUT# 19.72 X1000 (1.4-6.5); PLT 113 X1000 (130-400); RBC 2.59 XMIL (4.2-5.4); WBC 22.96 X1000 (4.8-10.8)
[2019-09-25 06:33] LABS: AGAP 10; ALB/GLOB RATIO 0.7; ALBUMIN 2.5 g/dL (3.5-5.0); ALKALINE PHOSPHATASE 178 U/L (32-104); BUN 7 mg/dL (8-22); CALCIUM 7.3 mg/dL (8.8-10.2); CHLORIDE 98 mmol/L (98-107); COSMO 273; CREATININE 0.4 mg/dL (0.5-0.9); ESTIMATED GFR > 60; GLUCOSE 114 mg/dL (70-104); GOT 14 U/L (10-30); GPT 7 U/L (10-36); MAGNESIUM 1.5 mg/dL (1.5-2.7); POTASSIUM 3.3 mmol/L (3.5-5.1); SODIUM 137 mmol/L (136-145); TCO2 29 mmol/L (25-35); TOTAL BILIRUBIN 2.08 mg/dL (0.20-1.00); TOTAL PROTEIN 6.3 g/dL (6.3-8.3)
[2019-09-25 06:40] LABS: RETIC% 3.97 % (0.8-2.1); RETIC-HE 18.7 PG (28.2-36.6)
--- NOTE | 2019-09-25 07:17 | Diag Imaging Result Doc PS360 ---
EXAM: CHEST-1 VIEW 09/25/2019 HISTORY: SOB TECHNIQUE: AP portable at 0547 COMMENT: Compared to 09/24/2019 the inspiration is less optimal. There continues to be diffuse opacities over both lungs and right pleural fluid. There is an apparent cavity in the left upper lobe. This was also present on the previous study. IMPRESSION: Right pleural effusion. Pulmonary edema plus minus pneumonia. Left upper lobe cavity. Electronically signed by Gary Quiñones 09/25/2019 7:15 AM
[2019-09-25] MEDS: LASIX IV SCH ×3 (07:33→21:37)
[2019-09-25] MEDS: FOLIC ACID PO SCH ×2 (07:33→08:45)
[2019-09-25] MEDS: TUMS PO SCH ×4 (07:33→16:35)
[2019-09-25 07:44] LABS: LARGE PLATELETS OCCASIONAL; LYMPHS 1 % (21-51); NRBC 2 % (0-0); POLYCHROM 2+; SEGS 98 % (42-75); SPHEROCYTES 2+; TARGET CELLS OCCASIONAL
[2019-09-25] MEDS: ZYVOX 600 MG/D5W 600 MG/300 ML IVPB IV SCH (09:23)
[2019-09-25] MEDS: PEPCID IV SCH ×2 (09:23→21:35)
[2019-09-25] MEDS: LIPOSYN 20% 250 ML IV SCH (09:23)
[2019-09-25] MEDS ORDERED: POTASSIUM PHOSPHATE 40 MEQ in NS 250 ML IV ONE (12:11)
[2019-09-25] MEDS: CUBICIN 600 MG in NS 100 ML IV SCH (16:39)
[2019-09-25] MEDS: NS 500 ML IV SCH (16:52)
--- NOTE | 2019-09-25 17:57 | PROGRESS NOTE ---
DATE: 09/25/2019 SUBJECTIVE: The patient looks ill. She is having a lot of pain. She is very tachycardic. OBJECTIVE: Blood pressure is 119/85, heart rate of 130, respiratory rate of 21, temperature 99, to 100.4, 100.6 degrees, 97 on 4 L.Cardiovascular: Regular rate and rhythm. Pulmonary: Bilateral breath sounds. Clear to auscultation. Gastrointestinal: Soft, nontender, nondistended. Bowel sounds are positive. LABORATORY DATA: White count is 22, hemoglobin and hematocrit 7 and 22, platelets 113,000. INR 1.3. Potassium 3.3, phos of 2.3. Total bilirubin 2. Reticulocyte count is 3.9, which is up from 3 yesterday, it is continuing to rise. ASSESSMENT AND PLAN: 1. Multilobar pneumonia associated with methicillin-resistant Staphylococcus aureus. She has an MRSA bacteremia. I think we need to put her on daptomycin. She is allergic to vancomycin. We will get an Infectious Disease consult her. I am not sure if it is clear that the pneumonia is the only thing causing her bacteremia because she has a PICC and a port on the right side, and it was her blood cultures that were positive, not her sputum. Her repeat blood cultures from today are not back yet. They were just drawn. Unfortunately, daptomycin will not cover pneumonia, so I am going to get an Infectious Disease consult. We may need to give her cefepime, or I guess possibly Teflaro. I am not sure if Teflaro is going to be sufficient enough to treat her bacteremia. I have gone ahead and put her on daptomycin in the meantime. 2. Sickle cell crisis. Her hemoglobin and hematocrit is increased, but her reticulocyte count is rising. I do think she is in pain and she has a reason for this, but her reticulocyte is increasing. Hematology/Oncology is following her and they have switched her to p.o. pain medication, which we may have to revert her back depending on her consideration. I know she has a history of polysubstance abuse, but she if is having true sickle cell crisis, we may have to treat what is in front of us unfortunately and deescalate as soon as we can. cc: Bharat Hernadez MD
[2019-09-25] MEDS: BENADRYL IV SCH (18:02)
[2019-09-25] MEDS: TEFLARO 600 MG in NS 250 ML IV SCH (21:30)
[2019-09-25] MEDS: HYDREA PO SCH ×2 (21:44→21:46)
[2019-09-25] MEDS: PATIENT'S OWN MED PO SCH (21:46)
--- NOTE | 2019-09-26 00:32 | PULMONOLOGY PROGRESS NOTE ---
DATE: 09/25/2019 SUBJECTIVE: The patient is awake and alert. She feels weak. OBJECTIVE: Vital Signs: Maximum temperature in the last 24 hours is 101.4 degrees, BP 135/86, heart rate 121, respiratory rate 22, oxygen saturation 96% on 2 L per nasal cannula. HEENT: Pupils are equal and reactive. Oropharynx appears clear. Neck: Supple. Chest: Reveals coarse crackles bilaterally. Cardiac: S1-S2. Abdomen: Soft. Extremities: Without edema. LABORATORIES: Chest x-ray reveals cavitary lesion in the left upper lobe and probably developing in the right upper lobe. White blood count 22,000, hemoglobin 7.2, platelet count 113,000. IMPRESSION: A 24-year-old with: 1. Septic emboli present on CT scan on presentation which has progressed to cavitary lung disease. 2. Methicillin-sensitive Staphylococcus aureus bacteremia. 3. Acute hypoxemic respiratory failure. 4. History of multiple Port-A-Cath placements and removals. 5. Ongoing fevers. DISCUSSION: A 24-year-old with problems outlined above. She presented with septic emboli. There is a concern that she has an infected Port-A-Cath and she may have endocarditis as well. RECOMMENDATIONS: 1. Agree with consulting Infectious Disease, but she will likely require her Port-A-Cath to be removed. 2. Recommend echocardiogram to rule out endocarditis. 3. Encourage discontinuation of marijuana given her sickle cell disease. cc: Chuckei Mooney MD
[2019-09-26] MEDS: DILAUDID IV PRN ×7 (00:42→23:52)
[2019-09-26] MEDS: CLINIMIX E 4.25%-5% SOLUTION 1,000 ML IV SCH ×3 (02:01→19:35)
[2019-09-26] MEDS: OFIRMEV 1000 MG/ISOTONIC SOLN 1,000 MG/100 ML BOTTLE IV SCH ×4 (02:46→21:20)
[2019-09-26] MEDS: XOPENEX NEB INH SCH ×4 (03:24→21:25)
[2019-09-26] MEDS: ATROVENT NEB INH SCH ×4 (03:24→21:25)
[2019-09-26] MEDS: PHENERGAN IV PRN ×3 (03:48→21:20)
[2019-09-26 06:59] LABS: AGAP 13; BUN 8 mg/dL (8-22); CALCIUM 7.4 mg/dL (8.8-10.2); CHLORIDE 94 mmol/L (98-107); COSMO 267; CREATININE 0.3 mg/dL (0.5-0.9); ESTIMATED GFR > 60; GLUCOSE 106 mg/dL (70-104); POTASSIUM 3.6 mmol/L (3.5-5.1); SODIUM 134 mmol/L (136-145); TCO2 27 mmol/L (25-35)
[2019-09-26 07:43] LABS: ALB/GLOB RATIO 0.6; ALBUMIN 2.2 g/dL (3.5-5.0); ALKALINE PHOSPHATASE 148 U/L (32-104); TOTAL BILIRUBIN 1.69 mg/dL (0.20-1.00); TOTAL PROTEIN 6.2 g/dL (6.3-8.3)
[2019-09-26 07:57] LABS: GOT 7 U/L (10-30); GPT < 5 U/L (10-36)
[2019-09-26] MEDS: TUMS PO SCH ×3 (08:02→17:57)
[2019-09-26] MEDS: LASIX IV SCH ×2 (08:02→20:30)
[2019-09-26] MEDS: FOLIC ACID PO SCH (08:02)
[2019-09-26] MEDS: TEFLARO 600 MG in NS 250 ML IV SCH ×2 (08:55→19:35)
[2019-09-26] MEDS: PEPCID IV SCH ×2 (08:55→20:32)
[2019-09-26 10:22] LABS: BASO# 0.05 X1000 (0.0-0.2); BASO% 0.2 % (0.0-0.8); EOS# 0.14 X1000 (0.0-0.7); EOS% 0.7 % (0.0-10.0); HEMATOCRIT 21.9 % (37.0-47.0); HEMOGLOBIN 7.1 g/dL (12.0-16.0); IMM GRAN# 0.13 X1000 (0.0-0.04); IMM GRAN% 0.6 % (0.0-0.5); LYMPH# 1.57 X1000 (1.2-3.4); LYMPH% 7.7 % (20.5-51.1); MCH 28.3 PG (27-31); MCHC 32.4 g/dL (33-37); MCV 87.3 FL (81-99); MONO# 0.77 X1000 (0.11-0.59); MONO% 3.8 % (1.7-9.3); MPV 10.6 FL (7.4-10.4); NEUT# 17.61 X1000 (1.4-6.5); PLT 128 X1000 (130-400); RBC 2.51 XMIL (4.2-5.4); RETIC-HE 23.2 PG (28.2-36.6); WBC 20.27 X1000 (4.8-10.8)
[2019-09-26] MEDS: LIPOSYN 20% 250 ML IV SCH (10:33)
[2019-09-26 10:40] LABS: ANISOCYTOSIS 2+; EOS 1 % (1-10); HYPOCHROM 1+; LYMPHS 8 % (21-51); MICROCYTOSIS 2+; MONO 3 % (1-9); NRBC 1 % (0-0); SEGS 88 % (42-75)
[2019-09-26 10:41] LABS: POIKILOCYTOSIS OCCASIONAL; SCHISTOCYTES OCCASIONAL
[2019-09-26] MEDS ORDERED: ZOFRAN ONE (10:55)
[2019-09-26] MEDS ORDERED: ROBINUL ONE (10:55)
[2019-09-26] MEDS ORDERED: DECADRON ONE (10:55)
[2019-09-26] MEDS ORDERED: XYLOCAINE 1%/EPI 1:100,000 ONE (10:55)
[2019-09-26] MEDS ORDERED: XYLOCAINE-MPF 2% ONE (10:55)
[2019-09-26] MEDS ORDERED: QUELICIN (DOSE) ONE ×2 (10:55→10:57)
[2019-09-26] MEDS ORDERED: DIPRIVAN 1% ONE (10:55)
[2019-09-26] MEDS ORDERED: REGLAN ONE (11:18)
[2019-09-26] MEDS ORDERED: VERSED ONE (11:18)
[2019-09-26] MEDS ORDERED: PEPCID ONE (11:28)
--- NOTE | 2019-09-26 11:36 | PROGRESS NOTE ---
DATE: 09/26/2019 SUBJECTIVE: The patient reports feeling sometimes shortness of breath. She continues to complain of pain all over, exactly the same despite converting her Dilaudid p.o. to IV. As mentioned before, she did not see any difference. OBJECTIVE: Vital Signs: Temperature 99.1 degrees, heart rate 115, respiratory rate 18, blood pressure 118/81, O2 saturation 98% on 4 L nasal cannula. General: This is a chronically ill- appearing, 24-year-old, female lying in bed, in no acute distress. Cardiovascular: S1, S2 heard. Tachycardic but no murmurs, gallops, or rubs. Respiratory: Still crackles and coarse breath sounds noted in both pulmonary bases. Patient not using any accessory muscles or having work of breathing. Abdomen: A little bit distended. Mild tenderness to palpation all over, but no signs of peritoneal irritation. Bowel sounds present. No organomegaly. Extremities: No clubbing, cyanosis, or edema. Peripheral pulses present in both legs. Neurological: Patient is alert and oriented x3. Moves all 4 extremities. LABORATORY DATA: The CBC from this morning has been canceled, and the BMP is unremarkable except sodium 133 and calcium 7.4. ASSESSMENT AND PLAN: 1. Sepsis secondary to multilobar pneumonia secondary to Staphylococcus aureus. Unfortunately, because the patient continues to have elevated white cell count while not being on any medication that will elevate those, like steroids, we repeated blood cultures and those are still positive for Staphylococcus. The x-ray that we have order to see volume overload reveals left lung cavity. That finding is more concerning also for an Staphylococcus aureus bacteremia. I am not quite sure if this cavity was secondary to septic emboli. In any, Dr. Castellanos has been consulted yesterday afternoon. We will see what he thinks. 2. Acute kidney injury. Completely resolved. 3. Sickle cell crisis. I have not seen her hemoglobin from this morning, those results are still pending at the time of my dictation, but in terms of pain management, she is still complaining all over. At this point, I am not going to make any changes to her current pain medications. 4. History of polysubstance abuse. Aware. The patient has been advised it is important to stop also using marijuana. 5. Intractable nausea and vomiting. The patient repeats that she is still having some nausea on and off. Clinimix has been added to her current treatment. 6. Disposition. Suspicious for endocarditis with a repeated blood culture. We are ordering an echocardiogram. We will see if this patient needs Port-A-Cath removal. We will continue to monitor. cc: Tray Baker MD MTDD
[2019-09-26] MEDS ORDERED: NS 250 ML ONE (11:41)
[2019-09-26] MEDS ORDERED: HYDROGEN PEROXIDE SOLUTION ONE (11:51)
[2019-09-26] MEDS ORDERED: FENTANYL ONE (11:55)
[2019-09-26] MEDS ORDERED: KETAMINE ONE (11:55)
[2019-09-26] MEDS: OXY IR ONE ×2 (13:01→20:29)
[2019-09-26] MEDS: CUBICIN 600 MG in NS 100 ML IV SCH (15:53)
[2019-09-26] MEDS: NS 500 ML IV SCH (17:42)
[2019-09-26] MEDS: BENADRYL IV SCH (17:57)
[2019-09-26] MEDS: PATIENT'S OWN MED PO SCH (20:28)
[2019-09-26] MEDS: HYDREA PO SCH (20:28)
--- NOTE | 2019-09-26 22:35 | OPERATIVE NOTE ---
PROCEDURE DATE: 09/26/2019 PREOPERATIVE DIAGNOSIS: Sepsis with Staphylococcus aureus in her blood secondary to sickle cell anemia. POSTOPERATIVE DIAGNOSIS: Sepsis with Staphylococcus aureus in her blood secondary to sickle cell anemia. PROCEDURE: Port removal. OPERATIVE NOTE: The patient brought to the operating room. After satisfactory induction of IV and endotracheal anesthesia, her old port was removed. The patient has an existing PICC line. Peripheral line was started in her left hand. The old port site was prepped and draped in the appropriate manner. The scar was elliptically excised with hemostasis being achieved by electrocautery. The port was removed intact. There was no purulence in the pocket. The wound was irrigated with peroxide and the skin was closed with stainless steel clips. Sterile dressing was applied. She was awakened and extubated in the operating room and transferred to recovery. A 10 mL of Xylocaine with epinephrine was injected into the subcutaneous prior to closure. ESTIMATED BLOOD LOSS: Around 5 mL. cc: Ganga Ayala MD
--- NOTE | 2019-09-27 00:02 | PULMONOLOGY PROGRESS NOTE ---
DATE: 09/26/2019 SUBJECTIVE: The patient is awake, alert, and conversant. She feels weak. OBJECTIVE: Vital Signs: Maximum temperature in the last 24 hours 103.8 degrees. Blood pressure 117/82, heart rate 122, respiratory rate 17, oxygen saturation 100% on 4 L per nasal cannula. HEENT: Pupils are equal and reactive. Oropharynx appears clear. Neck: Supple. Chest: Reveals coarse crackles bilaterally. Cardiac: S1, S2. Abdomen: Soft. Extremities: Without edema. LABORATORIES: Both blood cultures yesterday are growing gram-positive cocci. IMPRESSION: A 24-year-old with: 1. Septic emboli with progression to cavitary lung disease. 2. Sickle cell anemia. 3. Methicillin-sensitive Staphylococcus aureus bacteremia. Repeat cultures remain positive. 4. Acute hypoxemic respiratory failure. 5. Port-A-Cath placement. 6. Peripherally inserted central catheter line placement. 7. Ongoing high fevers. RECOMMENDATIONS: 1. Discussed with Dr. Roger Hernadez. Recommend surgical consultation for Port-A-Cath removal. 2. Recommend echocardiogram to rule out endocarditis. 3. Agree with plans for Infectious Disease evaluation. 4. Prognosis is guarded. cc: Chuckie Mooney MD
[2019-09-27] MEDS: OFIRMEV 1000 MG/ISOTONIC SOLN 1,000 MG/100 ML BOTTLE IV SCH ×4 (02:04→20:27)
[2019-09-27] MEDS: PHENERGAN IV PRN ×4 (02:50→21:57)
[2019-09-27] MEDS: DILAUDID IV PRN ×7 (02:50→21:58)
[2019-09-27] MEDS: ATROVENT NEB INH SCH ×4 (03:41→22:36)
[2019-09-27] MEDS: XOPENEX NEB INH SCH ×4 (03:41→22:36)
[2019-09-27 06:44] LABS: BASO# 0.04 X1000 (0.0-0.2); BASO% 0.2 % (0.0-0.8); EOS# 0.03 X1000 (0.0-0.7); EOS% 0.2 % (0.0-10.0); HEMATOCRIT 22.9 % (37.0-47.0); HEMOGLOBIN 7.2 g/dL (12.0-16.0); IMM GRAN% 0.5 % (0.0-0.5); LYMPH# 2.03 X1000 (1.2-3.4); LYMPH% 11.2 % (20.5-51.1); MCH 27.7 PG (27-31); MCHC 31.4 g/dL (33-37); MCV 88.1 FL (81-99); MONO# 1.02 X1000 (0.11-0.59); MONO% 5.6 % (1.7-9.3); MPV 9.6 FL (7.4-10.4); NEUT# 14.98 X1000 (1.4-6.5); NEUT% 82.3 % (42.2-75.2); PLT 147 X1000 (130-400); RDW 17.4 % (11.5-14.5)
[2019-09-27 07:22] LABS: AGAP 12; ALB/GLOB RATIO 0.6; ALBUMIN 2.7 g/dL (3.5-5.0); ALKALINE PHOSPHATASE 162 U/L (32-104); BUN 15 mg/dL (8-22); CALCIUM 8.2 mg/dL (8.8-10.2); CHLORIDE 99 mmol/L (98-107); COSMO 275; CREATININE 0.4 mg/dL (0.5-0.9); ESTIMATED GFR > 60; GLUCOSE 105 mg/dL (70-104); GOT 18 U/L (10-30); GPT 7 U/L (10-36); LDH 305 U/L (135-214); POTASSIUM 4.1 mmol/L (3.5-5.1); SODIUM 137 mmol/L (136-145); TCO2 26 mmol/L (25-35); TOTAL BILIRUBIN 1.34 mg/dL (0.20-1.00)
[2019-09-27] MEDS: TUMS PO SCH ×3 (09:23→17:10)
[2019-09-27] MEDS: FOLIC ACID PO SCH (09:23)
[2019-09-27] MEDS: LASIX IV SCH ×2 (09:24→20:27)
[2019-09-27] MEDS: PEPCID IV SCH ×2 (09:24→20:30)
[2019-09-27] MEDS: TEFLARO 600 MG in NS 250 ML IV SCH (09:57)
[2019-09-27] MEDS: LIPOSYN 20% 250 ML IV SCH (09:57)
[2019-09-27] MEDS: CLINIMIX E 4.25%-5% SOLUTION 1,000 ML IV SCH ×2 (09:57→23:09)
[2019-09-27] MEDS: BENADRYL IV PRN ×2 (12:57→19:03)
--- NOTE | 2019-09-27 13:42 | INFECTIOUS DISEASE CONSULT REP ---
DATE: 09/27/2019 CONCLUSION: The patient has an oxacillin sensitive Staph bacteremia, which I think originates from her Port-A-Cath, which has been removed. She also has pulmonary infiltrates which I think represent hematogenous pneumonia. There is a good chance that the patient has tricuspid valve endocarditis and the pulmonary infiltrates could be from septic emboli from the tricuspid valve. RECOMMENDATIONS: I have discontinued daptomycin and ceftaroline and I put the patient on nafcillin. Some of the side effects of the antibiotic including rash, diarrhea, and liver toxicity have been explained to patient. She agrees with treatment. I certainly agree with taking the patient's Port-A-Cath out. Unfortunately, I think she is going to have to have her PICC removed as well and in its place the patient will need IV access with a peripheral IV. Most likely this will be put in the jugular vein. DISCUSSION: The patient tells me she has had onset of dyspnea and fever. She was admitted to the hospital. Her studies thus far show blood cultures are positive for oxacillin sensitive Staph aureus and repeat blood cultures are also positive. The patient's CBC shows a white count of 18,200, hemoglobin 7.2, and platelet count 147,000. Creatinine is 0.4. GFR is greater than 60. Chest x-ray shows bilateral infiltrates and there is one that appears to have a cavity in it. 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 She is having her menstrual period now. REVIEW OF SYSTEMS: Eyes and ears: The patient states that her vision and hearing are good. Neck: No stiffness. Respiratory: See present illness. Cardiac: The patient has not been having chest pain or palpitations. GI: No nausea, vomiting, or diarrhea. : No dysuria or flank pain. Bones, joints, muscles: No swollen joints. The patient does have diffuse muscle and joint pain. Integument: No rashes. PREVIOUS HOSPITALIZATIONS AND OPERATIONS: She has been admitted multiple times for sickle cell crisis, pneumonia, and infected IV catheters, and for cholecystectomy. MEDICAL DISEASES: Positive for sickle cell disease and asthma. INFECTIOUS DISEASE HISTORY: Positive for pneumonia, urinary tract infection and infected IV catheters. FAMILY HISTORY: Positive for diabetes mellitus, cancer, sickle cell disease, hypertension, myocardial infarction and stroke. SOCIAL HISTORY: [place]. She is single. She smokes cigarettes. She does not drink alcoholic beverages or abuse drugs. She does not have any pets at home. ALLERGIES: The patient is allergic to Demerol, vancomycin, and latex. HOME MEDICATIONS: Include Jadenu, fentanyl, folic acid and hydroxyurea. PHYSICAL EXAMINATION: Vital Signs: Temperature is 98.1 degrees, pulse 96, respirations 22, blood pressure 129/85. The patient is 5 feet 6 inches tall, weighs 97 pounds. General: This is an ill- appearing and malnourished-appearing young female. She is in no acute distress at this time. Head/eyes/ears/nose/throat: She can hear my spoken words and see near objects. She does not have any white coating on her tongue. Neck: No meningismus. Lungs: Clear to auscultation. Cardiovascular: Heart rate is regular. I did not hear a murmur. Abdomen: Soft and nontender. Neurologic: The patient is alert. She can move her extremities. There is no tremor. She is able to walk. Her memory as regarding her medical history is intact. Integument: I did not notice any rash on the patient. Thank you for the consult. cc: Audi Castellanos MD
[2019-09-27] MEDS: NAFCIL 2 GM in NS 100 ML IV SCH ×2 (14:45→19:36)
--- NOTE | 2019-09-27 15:39 | ECHO REPORT ---
ORDER DATE: 09/26/2019 INTERPRETING PHYSICIAN: Dr. Chico Bauer. ECHOCARDIOGRAPHIC MEASUREMENTS: 1. Interventricular septum: 0.9 cm. 2. Left ventricular posterior wall: 0.8 cm. 3. Diastolic diameter: 4.5 cm. 4. Left atrium: 3.2 cm. 5. Aorta: 3.1 cm. SUMMARY OF THE 2-DIMENSIONAL IMAGIN. Pulmonic valve was normal. 2. Aortic valve leaflets were trileaflet. 3. Mitral valve was normal. 4. Tricuspid valve vegetation was noted, mobile on the tricuspid valve, attached to the septal and posterior tricuspid valve leaflet. 5. There is mild tricuspid regurgitation. 6. Peak velocity across the tricuspid valve was 3 meters per second. 7. Pulmonary artery systolic pressure 47 mmHg. 8. There is mild mitral regurgitation. 9. There is no aortic stenosis or regurgitation. 10. Normal left ventricular cavity size. 11. Estimated ejection fraction of 60%. CONCLUSIONS: 1. Vegetation noted attached to the tricuspid valve. 2. There is no pericardial effusion. cc: MD Tray York MD
[2019-09-27] MEDS: BENADRYL IV SCH (17:10)
--- NOTE | 2019-09-27 17:27 | PROGRESS NOTE ---
DATE: 09/27/2019 SUBJECTIVE: The patient complains of back pain and pain in her joints. OBJECTIVE: Vital signs: Temperature 98 degrees, blood pressure 133/89, heart rate 93, respirations 16, O2 saturation is 91% on 4 L nasal cannula. General: This is a young female lying in bed, in no acute distress. Heart: S1, S2 normal. Tachycardic. Lungs: Equal air entry bilaterally. No wheezing. No rales. Abdomen: Positive bowel sounds. Soft, nontender, nondistended. Extremities: No edema. No cyanosis. Neurologic: The patient is alert and oriented x4. LABS: White blood cell count 18, hemoglobin 7.2, hematocrit 22, platelets 147,000. Sodium 137, potassium 4.1, chloride 99, CO2 26, BUN 15, creatinine 0.4, glucose 105. Total bilirubin 1.3, direct bilirubin 0.6, AST 18, ALT 7, alkaline phosphatase 162. ASSESSMENT AND PLAN: 1. Acute hypoxemic respiratory failure. The patient has pneumonia and a left upper lobe cavitary lesion. Continue with supplemental oxygen and antibiotic therapy. 2. Tricuspid valve endocarditis. The patient has a vegetation on the tricuspid valve that was seen on the echocardiogram. Continue with antibiotic therapy as directed by Dr. Castellanos. 3. Bacteremia secondary to methicillin-sensitive Staphylococcus aureus. The patient has been switched to nafcillin by Dr. Castellanos. 4. Sickle cell crisis. Continue with IV fluids and antiemetics and pain medication. 5. Status post Port-A-Cath removal. Aware. 6. Septic emboli with a cavitary lung lesion. Aware. Continue with the current antibiotic regimen. 7. Thrombocytopenia. Improved. 8. Severe protein calorie malnutrition. Continue on meal supplements. cc: Geraldine Napier MD [facility]
[2019-09-27] MEDS: NS 500 ML IV SCH (17:36)
--- NOTE | 2019-09-27 19:26 | PULMONOLOGY PROGRESS NOTE ---
DATE: 09/27/2019 SUBJECTIVE: The patient is awake and alert. She reports she is "fatigued" but she feels better than yesterday. OBJECTIVE: The patient's temperature curve has been decreasing. She is 98.1 currently. Blood pressure 129/85, heart rate 96, respiratory rate 22, oxygen saturation 93%. HEENT: Pupils are equal and reactive. Oropharynx appears clear. Neck: Supple . Chest: Reveals crackles bilaterally. Cardiac: S1-S2. Abdomen: Soft. Extremities: Without edema. LABORATORIES: White blood count 18.20, hemoglobin 7.2, platelet count 147,000. IMPRESSION: 24-year-old with 1. Septic emboli with cavitary lung disease. 2. Sickle cell anemia. 3. Methicillin-sensitive Staph aureus bacteremia on multiple cultures. 4. Acute hypoxemic respiratory failure. 5. Status post Port-A-Cath removal. 6. Improving fever curve. PLAN: 1. Continue antibiotics per Infectious Disease. 2. Recommend echocardiogram to rule out endocarditis. 3. Follow up chest x-ray tomorrow. cc: Chuckie Mooney MD
[2019-09-27] MEDS: HYDREA PO SCH (20:26)
[2019-09-27] MEDS: PATIENT'S OWN MED PO SCH (20:26)
[2019-09-28] MEDS: BENADRYL IV PRN ×3 (00:54→19:53)
[2019-09-28] MEDS: DILAUDID IV PRN ×8 (00:55→23:03)
[2019-09-28] MEDS: NAFCIL 2 GM in NS 100 ML IV SCH ×4 (01:26→20:35)
[2019-09-28] MEDS: CLINIMIX E 4.25%-5% SOLUTION 1,000 ML IV SCH ×2 (02:35→13:07)
[2019-09-28] MEDS: OFIRMEV 1000 MG/ISOTONIC SOLN 1,000 MG/100 ML BOTTLE IV SCH ×4 (02:39→20:36)
[2019-09-28] MEDS: PHENERGAN IV PRN ×3 (03:52→23:02)
[2019-09-28] MEDS: ATROVENT NEB INH SCH ×2 (04:00→10:14)
[2019-09-28] MEDS: XOPENEX NEB INH SCH ×2 (04:01→12:00)
[2019-09-28 05:55] LABS: BASO# 0.03 X1000 (0.0-0.2); BASO% 0.2 % (0.0-0.8); EOS# 0.12 X1000 (0.0-0.7); HEMATOCRIT 25.6 % (37.0-47.0); HEMOGLOBIN 7.9 g/dL (12.0-16.0); IMM GRAN# 0.05 X1000 (0.0-0.04); IMM GRAN% 0.4 % (0.0-0.5); LYMPH# 2.39 X1000 (1.2-3.4); MCH 27.2 PG (27-31); MCHC 30.9 g/dL (33-37); MCV 88.3 FL (81-99); MONO# 0.75 X1000 (0.11-0.59); MPV 9.2 FL (7.4-10.4); NEUT# 9.22 X1000 (1.4-6.5); NEUT% 73.4 % (42.2-75.2); PLT 186 X1000 (130-400); RDW 17.3 % (11.5-14.5); WBC 12.56 X1000 (4.8-10.8)
[2019-09-28 06:20] LABS: AGAP 12; ALB/GLOB RATIO 0.6; ALBUMIN 2.7 g/dL (3.5-5.0); ALKALINE PHOSPHATASE 137 U/L (32-104); BUN 14 mg/dL (8-22); CALCIUM 8.1 mg/dL (8.8-10.2); CHLORIDE 98 mmol/L (98-107); COSMO 270; CREATININE 0.4 mg/dL (0.5-0.9); ESTIMATED GFR > 60; GLUCOSE 82 mg/dL (70-104); GOT 22 U/L (10-30); GPT 8 U/L (10-36); LDH 249 U/L (135-214); POTASSIUM 3.9 mmol/L (3.5-5.1); SODIUM 135 mmol/L (136-145); TCO2 25 mmol/L (25-35); TOTAL BILIRUBIN 1.29 mg/dL (0.20-1.00)
[2019-09-28] MEDS: PEPCID IV SCH ×2 (08:07→20:37)
[2019-09-28] MEDS: TUMS PO SCH ×3 (08:08→16:50)
[2019-09-28] MEDS: FOLIC ACID PO SCH (08:08)
[2019-09-28] MEDS: LASIX IV SCH ×2 (08:08→20:37)
[2019-09-28] MEDS: LIPOSYN 20% 250 ML IV SCH (10:44)
--- NOTE | 2019-09-28 10:50 | PROVIDER PROGRESS NOTE ---
Progress Note Dr. Sousa Progress Note/Pulmonary and or critical care We appreciated progress of care, Complications, change in diagnosis, and instructions to patient under direct supervision of Dr. Sousa. Subjective: We note the level of consciousness, bed (chair) position, family presence (if any), level of lethargy, feeling of symptoms, and changes from baseline condition/symptom. The patient is feeling better. She is lying in bed with no acute distress noted. On room air now. Has dry cough with production at times. c/o pain on chest, back and arms 03/25. She has diarrhea this am with a small amount of stool. She has been having no fever for 2 days. Vital Signs: We reviewed EMR current values for Pulse rate, Blood pressure, Pulse rate, respiratory rate and Pulse oximetry. Also noted other values and trends if present (e.g. I/O, CVP). Vital Signs 09/27/19 16:21 09/27/19 16:23 09/27/19 19:47 Temperature 98.0 F 98.4 F Pulse Rate 93 H 96 H 109 H Respiratory Rate 16 22 18 Blood Pressure 133/89 115/82 O2 Sat by Pulse Oximetry 91 L 92 L 09/27/19 22:36 09/28/19 00:24 09/28/19 04:12 Temperature 98.7 F 98.8 F Pulse Rate 103 H 101 H 97 H Respiratory Rate 27 H 20 21 Blood Pressure 106/66 117/84 O2 Sat by Pulse Oximetry 91 L 90 L 89 L 09/28/19 07:51 09/28/19 11:49 Temperature 98.5 F 98.4 F Pulse Rate 110 H 112 H Respiratory Rate 26 H 22 Blood Pressure 120/73 108/67 O2 Sat by Pulse Oximetry 93 L 94 L Intake & Output 09/27/19 09/28/19 09/28/19 19:59 07:59 19:59 Intake Total 2520 / 5460 2940 / 5460 220 / 220 Output Total 1200 / 3650 2450 / 3650 Balance 1320 / 1810 490 / 1810 220 / 220 Intake: Intake, IV Amount 900 / 1600 700 / 1600 Intake, IVPB 500 / 500 Intake, IV Electrolyte Infusion 1390 / 1390 Intake, Lipid Amount 190 / 190 Intake, Oral Amount 1120 / 1780 660 / 1780 220 / 220 Output: Output, Urine Void Amount 2450 / 2450 Output, Urine [place] Amount 1200 / 1200 Other: Percent of Meal Consumed Bites Only 100% Physical Examination: General: Lying in bed with no acute distress noted. HEENT: Trachea midline. Mucus pink and moist. Chest: Even and unlabored. Symmetrical excursion. Auscultation reveals crackles bibasilarly. CVS: S1 and S2 noted. Abdomen: Soft. Non-tender. Non-distended. Bowel sounds present. Extremities: No pedal edema. Neuro: A/Ox3; speech fluent; follow simple commands. Labs and Radiology: Reviewed available labs and radiology values available at time of EMR review. Laboratory Results 09/28/19 09/28/19 05:29 05:29 WBC 12.56 H RBC 2.90 L Hgb 7.9 L Hct 25.6 L MCV 88.3 MCH 27.2 MCHC 30.9 L RDW Std Deviation 17.3 H Plt Count 186 MPV 9.2 Immature Gran % (Auto) 0.4 Neut % (Auto) 73.4 Lymph % (Auto) 19.0 L [place] % (Auto) 6.0 Eos % (Auto) 1.0 Baso % (Auto) 0.2 Immature Gran # (Auto) 0.05 H Neut # (Auto) 9.22 H Lymph # (Auto) 2.39 [place] # (Auto) 0.75 H Eos # (Auto) 0.12 Baso # (Auto) 0.03 Sodium 135 L Potassium 3.9 Chloride 98 Carbon Dioxide 25 Anion Gap 12 BUN 14 Creatinine 0.4 L Estimated GFR/1.73 m2 > 60 BUN/Creatinine Ratio 35 Glucose 82 Calculated Osmolality 270 Calcium 8.1 L Total Bilirubin 1.29 H Direct Bilirubin 0.60 H AST 22 ALT 8 L Alkaline Phosphatase 137 H Lactate Dehydrogenase 249 H Total Protein 7.0 Albumin 2.7 L Globulin 4.3 Albumin/Globulin Ratio 0.6 Dr. Sousa evaluated and additional note below. Evaluation time in minutes: 32 minutes Assessment: Acute hypoxemic resp failureSeptic emboli with progression to cavitary lung disease Sickle cell crisis with hemolysis and severe pain Severe anemia secondary to sickle cell crisis Oxacillin sensitive Staph bacteremia, originating from Port-A-Cath, s/p Port-A-Cath removal on 09/26/19 Possible endocarditis Polysubstance abuse including opioid and marijuana Plan Continue current treatment and supportive care per admitting and other teams on the case. Bronchodilators Antibiotics Appropriate DVT and GI prophylaxis Physical Therapy Input was appreciated from Admitting MD and other teams on the case. See additional notes of Dr. Sousa
[2019-09-28] MEDS ORDERED: ATROVENT NEB INH PRN (10:51)
[2019-09-28] MEDS ORDERED: XOPENEX NEB INH PRN (10:52)
--- NOTE | 2019-09-28 14:51 | PROGRESS NOTE ---
DATE: 09/28/2019 SUBJECTIVE: The patient complains of generalized aches and pains mainly in her back. OBJECTIVE: Vital Signs: Temperature 98.4 degrees, blood pressure 108/67, heart rate is 112, respirations 22, O2 saturation 94% on 4 L nasal cannula. General: This is a young female, lying in bed in no acute distress. Heart: S1, S2 normal. Tachycardic. Lungs: Equal air entry bilaterally. No wheezing. No rales. Abdomen: Positive bowel sounds. Soft, nontender, nondistended. Extremities: No edema, no cyanosis, no calf tenderness. Neurologic: The patient is alert and oriented x4. LABS: White blood cell count 12, hemoglobin 7.9, hematocrit 25, platelets 186. Sodium 135, potassium 3.9, chloride 98, CO2 25. BUN 14, creatinine 0.4, glucose 82, total bilirubin 1.2, direct bilirubin 0.6, AST 22. ASSESSMENT AND PLAN: 1. Acute hypoxemic respiratory failure. Continue with the current treatment regimen. 2. Tricuspid valve endocarditis. Continue with antibiotic therapy as directed by Dr. Castellanos. 3. Bacteremia secondary to methicillin-sensitive Staphylococcus aureus. The patient's blood cultures remain positive. Continue on nafcillin as directed by Dr. Castellanos. 4. Sickle cell crisis. Continue on the current treatment regimen. 5. Status post Port-A-Cath removal. Aware. 6. Septic pulmonary emboli with cavitary lung lesion. Aware. Continue with the current treatment regimen. 7. Severe protein calorie malnutrition. Continue with supplements with each meal. 8. Deep vein thrombosis prophylaxis. Continue on heparin. cc: Geraldine Napier MD [facility]
[2019-09-28] MEDS: NS 500 ML IV SCH (16:32)
[2019-09-28] MEDS: BENADRYL IV SCH (17:19)
--- NOTE | 2019-09-28 17:58 | INFECTIOUS DISEASE PROGRESS NO ---
DATE: 09/28/2019 PRESENT ILLNESS: Ms. Henley has an oxacillin-sensitive Staph aureus bacteremia with tricuspid valve endocarditis. She has had her right chest Port-A-Cath removed and the plan is for her to have a central line inserted so the PICC line can be discontinued. Also, she has cavitary lung disease with possible hematogenous pneumonia. MEDICATIONS: Today is day 1 of nafcillin 2 g IV every 6 hours. PHYSICAL EXAMINATION: Vital Signs: Temperature is 98.4 degrees, pulse rate 112, respiratory rate 22, blood pressure 108/67, O2 saturation is 94% on room air. General: This is a chronically ill- appearing, young female. She is lying in bed, currently in mild distress due to pain. HEENT: Atraumatic, normocephalic. Oral mucous membranes are pink and moist. Conjunctivae are pale. Neck: Supple. Trachea is midline. Cardiovascular: Heart rate and rhythm are regular and fast, sinus tachycardia on the monitor. Respiratory: Lung sounds are clear and diminished to auscultation. No work of breathing is noted. Integumentary: Skin is warm and dry. There is an incision to the right chest with ely intact. No drainage, erythema, or edema noted to the incision site. There is a PICC line in place to the left upper arm. That site is without edema, erythema, or drainage. Abdomen: Soft, flat, nontender. Bowel sounds are active. Neurologic: She is awake, alert, and oriented. Able to move around in the bed independently. LABORATORY AND X-RAY: Today her white count is 12.56, hemoglobin 7.9, platelet count 186,000. Creatinine is 0.4. Estimated GFR is greater than 60. Total bilirubin is 1.29, direct bilirubin 0.60, AST 22, ALT 8, alkaline phosphatase 137, LDH 249. Blood cultures x2 have grown an oxacillin- sensitive Staph aureus. Another set of blood cultures done yesterday show 1/2 cultures growing a gram-positive coccus. No imaging reports today. Echocardiogram show no vegetations. ASSESSMENT AND PLAN: Ms. Henley is being treated for an oxacillin-sensitive Staph aureus bacteremia with endocarditis, septic emboli and cavitary lung disease with a possible hematogenous pneumonia. She has had her Port-A-Cath removed but still has her PICC line for now. The plan is for that PICC to be removed once a central line is in place, which Dr. Ayala is planning to put in tomorrow. Her white blood cell count is coming down. We will continue the nafcillin. Repeat blood cultures have been ordered for tomorrow afternoon, which will dahlia 48 hours of nafcillin. These plans have been discussed with and recommended by Dr. Castellanos. COMORBIDITIES: For Ms. 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 Dictated by CORRINA Harris for Audi Castellanos MD cc: Audi Castellanos MD [facility]
[2019-09-28] MEDS: HYDREA PO SCH ×2 (20:36→21:08)
[2019-09-28] MEDS: PATIENT'S OWN MED PO SCH (20:37)
[2019-09-28] MEDS: HEPARIN SUBQ SCH ×2 (20:37→21:09)
[2019-09-29] MEDS: CLINIMIX E 4.25%-5% SOLUTION 1,000 ML IV SCH ×2 (02:00→14:03)
[2019-09-29] MEDS: NAFCIL 2 GM in NS 100 ML IV SCH ×4 (02:00→21:42)
[2019-09-29] MEDS: DILAUDID IV PRN ×8 (02:01→22:22)
[2019-09-29] MEDS: BENADRYL IV PRN ×4 (02:01→22:27)
[2019-09-29] MEDS: OFIRMEV 1000 MG/ISOTONIC SOLN 1,000 MG/100 ML BOTTLE IV SCH ×4 (04:56→21:42)
[2019-09-29] MEDS: PHENERGAN IV PRN ×2 (04:56→14:03)
[2019-09-29] MEDS: HEPARIN SUBQ SCH ×3 (05:01→21:41)
[2019-09-29 06:40] LABS: ALB/GLOB RATIO 0.6; ALBUMIN 3.1 g/dL (3.5-5.0); DIRECT BILIRUBIN 0.8 mg/dL (0.00-0.20); TOTAL BILIRUBIN 1.63 mg/dL (0.20-1.00); TOTAL PROTEIN 8.1 g/dL (6.3-8.3)
[2019-09-29 08:27] LABS: BASO% 0.7 % (0.0-0.8); EOS# 0.14 X1000 (0.0-0.7); EOS% 0.9 % (0.0-10.0); HEMATOCRIT 28.3 % (37.0-47.0); HEMOGLOBIN 8.8 g/dL (12.0-16.0); IMM GRAN% 0.7 % (0.0-0.5); LYMPH# 3.08 X1000 (1.2-3.4); LYMPH% 20.3 % (20.5-51.1); MCH 27.4 PG (27-31); MCHC 31.1 g/dL (33-37); MCV 88.2 FL (81-99); MONO# 1.27 X1000 (0.11-0.59); MONO% 8.4 % (1.7-9.3); MPV 9.8 FL (7.4-10.4); NEUT# 10.48 X1000 (1.4-6.5); PLT 260 X1000 (130-400); RBC 3.21 XMIL (4.2-5.4); WBC 15.17 X1000 (4.8-10.8)
[2019-09-29 08:29] LABS: AGAP 15; BUN 13 mg/dL (8-22); CALCIUM 8.9 mg/dL (8.8-10.2); CHLORIDE 96 mmol/L (98-107); COSMO 266; CREATININE 0.5 mg/dL (0.5-0.9); ESTIMATED GFR > 60; GLUCOSE 93 mg/dL (70-104); POTASSIUM 4.4 mmol/L (3.5-5.1); SODIUM 133 mmol/L (136-145); TCO2 22 mmol/L (25-35)
[2019-09-29] MEDS: PEPCID IV SCH ×2 (08:29→21:42)
[2019-09-29] MEDS: LASIX IV SCH ×2 (08:30→21:42)
[2019-09-29] MEDS ORDERED: DIPRIVAN 1% ONE (09:58)
[2019-09-29] MEDS ORDERED: XYLOCAINE-MPF 2% ONE (09:58)
--- NOTE | 2019-09-29 11:23 | PROVIDER PROGRESS NOTE ---
Progress Note Dr. Sousa Progress Note/Pulmonary and or critical care We appreciated progress of care, Complications, change in diagnosis, and instructions to patient under direct supervision of Dr. Sousa. Subjective: We note the level of consciousness, bed (chair) position, family presence (if any), level of lethargy, feeling of symptoms, and changes from baseline condition/symptom. The patient is feeling better. She is lying in bed with no acute distress noted. On room air now. c/o pain on chest, back and arms 03/25. She is sweating at this time. She still has dry cough. She did have fever in last 24 hours with the highest at 102.6 last night. Family at the bedside. Vital Signs: We reviewed EMR current values for Pulse rate, Blood pressure, Pulse rate, respiratory rate and Pulse oximetry. Also noted other values and trends if present (e.g. I/O, CVP). Vital Signs 09/28/19 15:44 09/28/19 16:29 09/28/19 19:50 Temperature 99.2 F 102.6 F H Pulse Rate 112 H 121 H Respiratory Rate 32 H 15 18 Blood Pressure 108/74 125/79 Blood Pressure [Right Arm] O2 Sat by Pulse Oximetry 93 L 96 09/28/19 20:17 09/28/19 21:54 09/28/19 23:21 Temperature 98.4 F 98.4 F Pulse Rate 116 H Respiratory Rate 20 Blood Pressure 100/73 Blood Pressure [Right Arm] O2 Sat by Pulse Oximetry 97 97 09/29/19 04:00 09/29/19 07:30 09/29/19 08:51 Temperature 100.0 F H 98.7 F Pulse Rate 124 H 108 H Respiratory Rate 24 21 Blood Pressure 101/71 119/69 Blood Pressure [Right Arm] O2 Sat by Pulse Oximetry 96 97 97 09/29/19 11:59 09/29/19 12:53 09/29/19 13:03 Temperature 98.7 F 98.0 F Pulse Rate 108 H 111 H 118 H Respiratory Rate 21 18 28 H Blood Pressure 119/69 119/69 Blood Pressure [Right Arm] 106/80 106/80 O2 Sat by Pulse Oximetry 99 98 09/29/19 13:13 09/29/19 13:32 Temperature Pulse Rate 119 H 120 H Respiratory Rate 26 H Blood Pressure 103/73 Blood Pressure [Right Arm] 113/75 O2 Sat by Pulse Oximetry 97 92 L Intake & Output 09/28/19 09/29/19 09/29/19 19:59 07:59 19:59 Intake Total 220 / 700 480 / 700 500 / 500 Output Total 1105 / 1105 Balance 220 / 700 480 / 700 -605 / -605 Intake: Intake, IV Amount 100 / 100 OR IV Intake 400 / 400 LR 400 / 400 Intake, Oral Amount 220 / 700 480 / 700 Output: Output, Urine Void Amount 1100 / 1100 Output, Estimated Blood Loss 5 / 5 Amount Other: Percent of Meal Consumed 100% Number of Continent Voids Not 3 2 Measured Number of Bowel Movements 2 1 Physical Examination: General: Lying in bed with no acute distress noted. HEENT: Trachea midline. Mucus pink and moist. Chest: Even and unlabored. Symmetrical excursion. Auscultation reveals mild crackles bibasilarly. CVS: S1 and S2 noted. Abdomen: Soft. Non-tender. Non-distended. Bowel sounds present. Extremities: No pedal edema. Neuro: A/Ox3; speech fluent; follow simple commands. Labs and Radiology: Reviewed available labs and radiology values available at time of EMR review. Laboratory Results 09/29/19 09/29/19 09/29/19 05:37 05:37 05:37 WBC 15.17 H RBC 3.21 L Hgb 8.8 L Hct 28.3 L MCV 88.2 MCH 27.4 MCHC 31.1 L RDW Std Deviation 17.0 H Plt Count 260 D MPV 9.8 Immature Gran % (Auto) 0.7 H Neut % (Auto) 69.0 Lymph % (Auto) 20.3 L [place] % (Auto) 8.4 Eos % (Auto) 0.9 Baso % (Auto) 0.7 Immature Gran # (Auto) 0.10 H Neut # (Auto) 10.48 H Lymph # (Auto) 3.08 [place] # (Auto) 1.27 H Eos # (Auto) 0.14 Baso # (Auto) 0.10 Segmented Neutrophils 60 Band Neutrophils 12 H Lymphocytes 26 Monocytes 2 Hypochromia 1+ Poikilocytosis 1+ Anisocytosis 1+ Sodium 133 L Potassium 4.4 Chloride 96 L Carbon Dioxide 22 L Anion Gap 15 BUN 13 Creatinine 0.5 Estimated GFR/1.73 m2 > 60 BUN/Creatinine Ratio 26 Glucose 93 Calculated Osmolality 266 Calcium 8.9 Total Bilirubin 1.63 H Direct Bilirubin 0.80 H AST 18 ALT 8 L Alkaline Phosphatase 162 H Lactate Dehydrogenase 290 H Total Protein 8.1 Albumin 3.1 L Globulin 5.0 Albumin/Globulin Ratio 0.6 Dr. Sousa evaluated and additional note below. Evaluation time in minutes: 32 minutes Assessment: Acute hypoxemic resp failure. Improved. Septic emboli with progression to cavitary lung disease Sickle cell crisis with hemolysis and severe pain Severe anemia secondary to sickle cell crisis Oxacillin sensitive Staph bacteremia, originating from Port-A-Cath, s/p Port-A-Cath removal on 09/26/19 Tricuspid valve endocarditis Polysubstance abuse including opioid and marijuana Plan Continue current treatment and supportive care per admitting and other teams on the case. Bronchodilators PRN Antibiotics Appropriate DVT and GI prophylaxis Physical Therapy Encourage deep breathing and cough Input was appreciated from Admitting MD and other teams on the case.
[2019-09-29] MEDS: LIPOSYN 20% 250 ML IV SCH (11:40)
[2019-09-29 11:49] LABS: BANDS 12 % (0-1); LYMPHS 26 % (21-51); MONO 2 % (1-9); SEGS 60 % (42-75)
[2019-09-29 11:50] LABS: ANISOCYTOSIS 1+; HYPOCHROM 1+; POIKILOCYTOSIS 1+
[2019-09-29] MEDS ORDERED: VERSED ONE (12:05)
[2019-09-29] MEDS ORDERED: FENTANYL ONE (12:23)
[2019-09-29] MEDS ORDERED: ZOFRAN ONE (12:40)
--- NOTE | 2019-09-29 13:13 | Diag Imaging Result Doc PS360 ---
CHEST-PORTABLE - 09/29/2019 INDICATION: PORT INSERT COMPARISON: 09/25/2019 FINDINGS: There has been removal of the right chest port. There has been placement of a new right central line. The catheter tip of this line is done in the lower right atrium. There is a stable left PICC line in good position. The left PICC line tip is at the cavoatrial junction. Stable cardiomegaly. Stable heterogeneous bilateral infiltrates. Stable small right pleural effusion. IMPRESSION: Right central line tip is in the lower right atrium. Electronically signed by Errol Curiel 09/29/2019 1:11 PM
[2019-09-29] MEDS: FOLIC ACID PO SCH (14:03)
[2019-09-29] MEDS: TUMS PO SCH ×2 (14:04→18:10)
--- NOTE | 2019-09-29 16:24 | PROGRESS NOTE ---
DATE: 09/29/2019 INTERVAL HISTORY: The patient's pain remains relatively well controlled. Still spiking fevers up to 102.6 overnight. Most recent blood cultures still positive with gram-positive cocci which will likely be the same Staphylococcus aureus she has had 2 times previously. No other acute events. No new complaints. REVIEW OF SYSTEMS: Twelve-point review of systems negative except as per interval history. LABORATORY DATA: WBC 15.1, hemoglobin 8.8, hematocrit 28.3, platelets 260,000. Sodium 133, potassium 4.4, BUN 13, creatinine 0.5, glucose 93, bilirubin 1.63. IMAGING: Chest x-ray with right central line tip in the lower right atrium. Chest port removed. VITALS: T-max 102.6, pulse 118, respirations 28, blood pressure 119/69, O2 saturations 98% on 2 L by nasal cannula. PHYSICAL EXAMINATION: General: A little lethargic, but no acute distress. Vitals: As above. HEENT: Normocephalic, atraumatic. Cardiovascular: Tachycardic but regular. Pulmonary: Essentially clear to auscultation bilaterally. Abdomen: Soft, nontender, nondistended. Bowel sounds positive. Extremities: Peripheral pulses intact. No clubbing or cyanosis. Neurologic: Neurologic cranial nerves grossly intact. Mild global weakness but no focal deficits. Psychiatric: Asleep, but easily arousable. Oriented x3. Cooperative. ASSESSMENT AND PLAN: 1. Acute hypoxemic respiratory failure, septic pulmonary embolus, pneumonia. Patient on antibiotics with nafcillin. This is as per Infectious Disease. Still having fevers and blood cultures persistently positive. Getting a central line today so that PICC could be removed. Continue monitoring closely. 2. Tricuspid valve endocarditis, methicillin-sensitive Staphylococcus aureus bacteremia, infected port. The patient with MSSA bacteremia and tricuspid valve endocarditis. Favored to be related to infected port. Port now removed, but fevers continue and blood cultures are persistently positive. Most recent set from the 12th now positive for gram-positive cocci. Continuing antibiotics and repeating blood cultures. Hopefully this line change will help clear her blood. Infectious Disease following. Pulmonology also following. 3. Sickle cell disease with crisis. Pain reasonably controlled on current regimen which we will continue. Blood counts stable to slightly improved. Continue supportive care. 4. Pulmonary hypertension, aware.
[2019-09-29] MEDS: NS 500 ML IV SCH (16:33)
--- NOTE | 2019-09-29 18:21 | OPERATIVE NOTE ---
PROCEDURE DATE: 09/29/2019 PREOPERATIVE DIAGNOSIS: Methicillin-sensitive Staphylococcus aureus sepsis, likely from port. Port was removed 2 days ago. PROCEDURE: Right internal jugular triple-lumen catheter. DESCRIPTION OF PROCEDURE: The patient was brought to the operating room. After satisfactory induction of IV and LMA anesthesia, her neck and chest were prepped and draped in the appropriate manner. Under ultrasound guidance, the jugular vein was identified at the base of the neck between the bellies of the sternomastoid muscle. Under ultrasound guidance, the vein was accessed. Guidewire was introduced to the right atrial area of the heart, with no pneumothorax or ectopy. The system was dilated and the triple-lumen was threaded down the superior vena cava- right atrial junction. It was flushed with heparinized saline and anchored to the skin with 3-0 silk. Sterile dressing was applied. She was subsequently awakened and extubated in the operating room, and transferred to recovery. ESTIMATED BLOOD LOSS: Around 5 mL. cc: Ganga Ayala MD
[2019-09-29] MEDS: BENADRYL IV SCH (18:33)
[2019-09-29] MEDS: PATIENT'S OWN MED PO SCH (21:41)
[2019-09-29] MEDS: HYDREA PO SCH (21:42)
[2019-09-30] MEDS: NAFCIL 2 GM in NS 100 ML IV SCH ×4 (01:31→19:53)
[2019-09-30] MEDS: DILAUDID IV PRN ×7 (01:31→21:44)
[2019-09-30] MEDS: PHENERGAN IV PRN ×4 (01:31→21:44)
[2019-09-30] MEDS: OFIRMEV 1000 MG/ISOTONIC SOLN 1,000 MG/100 ML BOTTLE IV SCH ×4 (02:45→21:59)
[2019-09-30] MEDS: HEPARIN SUBQ SCH ×3 (04:23→20:20)
[2019-09-30] MEDS: BENADRYL IV PRN ×3 (04:32→18:14)
[2019-09-30] MEDS: CLINIMIX E 4.25%-5% SOLUTION 1,000 ML IV SCH ×2 (04:32→18:13)
[2019-09-30 06:32] LABS: BASO# 0.08 X1000 (0.0-0.2); BASO% 0.6 % (0.0-0.8); EOS# 0.21 X1000 (0.0-0.7); EOS% 1.6 % (0.0-10.0); HEMATOCRIT 28.9 % (37.0-47.0); IMM GRAN# 0.07 X1000 (0.0-0.04); IMM GRAN% 0.5 % (0.0-0.5); LYMPH# 3.64 X1000 (1.2-3.4); LYMPH% 28.1 % (20.5-51.1); MCH 27.4 PG (27-31); MCHC 31.1 g/dL (33-37); MCV 87.8 FL (81-99); MONO# 0.75 X1000 (0.11-0.59); MONO% 5.8 % (1.7-9.3); MPV 9.3 FL (7.4-10.4); NEUT# 8.22 X1000 (1.4-6.5); NEUT% 63.4 % (42.2-75.2); PLT 272 X1000 (130-400); RBC 3.29 XMIL (4.2-5.4); WBC 12.97 X1000 (4.8-10.8)
[2019-09-30 06:46] LABS: AGAP 10; BUN 14 mg/dL (8-22); CALCIUM 8.6 mg/dL (8.8-10.2); CHLORIDE 96 mmol/L (98-107); COSMO 265; CREATININE 0.5 mg/dL (0.5-0.9); ESTIMATED GFR > 60; GLUCOSE 99 mg/dL (70-104); POTASSIUM 4.7 mmol/L (3.5-5.1); SODIUM 132 mmol/L (136-145); TCO2 26 mmol/L (25-35)
--- NOTE | 2019-09-30 09:16 | Diag Imaging Result Doc PS360 ---
EXAM: CHEST-1 VIEW INDICATION: SOB TECHNIQUE: One view COMPARISON: 09/29/2019 FINDINGS: There has been interval removal of the left PICC line. The right central line is in stable position with the tip projecting over the right atrium. The heterogeneous bilateral infiltrates seen on the previous study are approximately stable. There is likely a small right effusion that is stable. No new consolidation is identified. Cardiac silhouette is stable. IMPRESSION: Interval removal of the left PICC line. Stable chest, otherwise. Electronically signed by Gopi Polo 09/30/2019 9:16 AM
[2019-09-30] MEDS: LIPOSYN 20% 250 ML IV SCH (09:56)
[2019-09-30] MEDS: LASIX IV SCH ×3 (09:57→20:23)
[2019-09-30] MEDS: PEPCID IV SCH ×2 (09:57→20:20)
[2019-09-30] MEDS: FOLIC ACID PO SCH (09:57)
[2019-09-30] MEDS: TUMS PO SCH ×3 (09:58→17:30)
--- NOTE | 2019-09-30 11:43 | PROVIDER PROGRESS NOTE ---
Progress Note Dr. Sousa Progress Note/Pulmonary and or critical care We appreciated progress of care, Complications, change in diagnosis, and instructions to patient under direct supervision of Dr. Sousa. Subjective: We note the level of consciousness, bed (chair) position, family presence (if any), level of lethargy, feeling of symptoms, and changes from baseline condition/symptom. The patient is feeling same as yesterday. She is lying in bed with no acute distress noted. She is reading something on her cellphone. On room air. c/o pain on chest, back and arms 03/25. She also develops neck pain with cough 2/2 jugular catheter placement. She has mild dry cough with some yellowish thick sputum at times. She has no fever in last 24 hours. Vital Signs: We reviewed EMR current values for Pulse rate, Blood pressure, Pulse rate, respiratory rate and Pulse oximetry. Also noted other values and trends if present (e.g. I/O, CVP). Vital Signs 09/29/19 16:00 09/29/19 19:52 09/29/19 20:26 Temperature 99.3 F 98.1 F Pulse Rate 122 H 113 H Respiratory Rate 35 H 26 H Blood Pressure 98/68 100/58 O2 Sat by Pulse Oximetry 94 L 92 L 93 L 09/30/19 00:00 09/30/19 04:00 09/30/19 07:46 Temperature 98.3 F 98.5 F 98.3 F Pulse Rate 107 H 110 H 126 H Respiratory Rate 25 H 14 21 Blood Pressure 106/71 111/62 97/74 O2 Sat by Pulse Oximetry 93 L 96 98 09/30/19 11:43 Temperature 98.7 F Pulse Rate 108 H Respiratory Rate 24 Blood Pressure 86/56 O2 Sat by Pulse Oximetry 99 Intake & Output 09/29/19 09/30/19 09/30/19 19:59 07:59 19:59 Intake Total 2136 / 3932 1796 / 3932 Output Total 20045 4000 / 6005 1500 / 1500 Balance 131 / -2072 -4 / -2072 -1500 / -1500 Intake: Intake, IV Amount 1400 / 2300 900 / 2300 Intake, IVPB 96 / 592 496 / 592 OR IV Intake 400 / 400 LR 400 / 400 Intake, Oral Amount 240 / 640 400 / 640 Output: Output, Urine Void Amount 2000 / 6000 4000 / 6000 1500 / 1500 Output, Estimated Blood Loss 5 / 5 Amount Other: Percent of Meal Consumed 75% 25% Number of Continent Voids Not 1 Measured Number of Bowel Movements 1 Bowel Movement Color and Soft Character Liquid Brown Physical Examination: General: Lying in bed reading her cellphone with no acute distress noted. HEENT: Trachea midline. Mucus pink and moist. Chest: Even and unlabored. Symmetrical excursion. Auscultation reveals mild crackles RLL. CVS: S1 and S2 noted. Abdomen: Soft. Non-tender. Non-distended. Bowel sounds present. Extremities: No pedal edema. Neuro: A/Ox3; speech fluent; follow simple commands. Labs and Radiology: Reviewed available labs and radiology values available at time of EMR review. Laboratory Results 09/30/19 09/30/19 06:00 06:00 WBC 12.97 H RBC 3.29 L Hgb 9.0 L Hct 28.9 L MCV 87.8 MCH 27.4 MCHC 31.1 L RDW Std Deviation 17.0 H Plt Count 272 MPV 9.3 Immature Gran % (Auto) 0.5 Neut % (Auto) 63.4 Lymph % (Auto) 28.1 Lyon % (Auto) 5.8 Eos % (Auto) 1.6 Baso % (Auto) 0.6 Immature Gran # (Auto) 0.07 H Neut # (Auto) 8.22 H Lymph # (Auto) 3.64 H Lyon # (Auto) 0.75 H Eos # (Auto) 0.21 Baso # (Auto) 0.08 Sodium 132 L Potassium 4.7 Chloride 96 L Carbon Dioxide 26 Anion Gap 10 BUN 14 Creatinine 0.5 Estimated GFR/1.73 m2 > 60 BUN/Creatinine Ratio 28 Glucose 99 Calculated Osmolality [address] Sousa evaluated and additional note below. Evaluation time in minutes: 32 minutes Assessment: Acute hypoxemic resp failure. Improved. Septic emboli with progression to cavitary lung disease Sickle cell crisis with hemolysis and severe pain Severe anemia secondary to sickle cell crisis Oxacillin sensitive Staph bacteremia, originating from Port-A-Cath, s/p Port-A-Cath removal on 09/26/19 and right internal jugular triple-lumen catheter placement on 09/29/19. Tricuspid valve endocarditis Polysubstance abuse including opioid and marijuana Plan Continue current treatment and supportive care per admitting and other teams on the case. Bronchodilators PRN Antibiotics Appropriate DVT and GI prophylaxis Physical Therapy Encourage incentive spirometer, deep breathing and cough Input was appreciated from Admitting MD and other teams on the case.
--- NOTE | 2019-09-30 15:13 | INFECTIOUS DISEASE PROGRESS NO ---
DATE: 09/30/2019 HISTORY OF PRESENT ILLNESS: The patient has an oxacillin sensitive Staph aureus tricuspid valve endocarditis with an associated pneumonia. MEDICATIONS: The patient has been receiving nafcillin for the past 3 days. PHYSICAL EXAMINATION: Vital Signs: Temperature 98.3 degrees, pulse 126, respiratory rate 21, and blood and blood pressure 97/74. General: This is a chronically ill-appearing young female. She is lying in bed, and does not appear to be in any acute distress. Head/eyes/ears/nose/throat: She can hear my spoken words and see near objects. There is no white coating to her tongue. Neck: No stiffness. The patient has a right-sided jugular venous catheter in place. The site is not bleeding, and there is no purulence. Lungs: I heard bibasilar rales. Cardiovascular: Heart rate was rapid and regular. Abdomen: Soft and nontender. Neurologic: The patient is awake. She can move her extremities. There is no tremor. LABORATORY AND X-RAY: Chest x-ray shows continued bilateral infiltrates. Creatinine is 0.5. GFR is greater than 60. [place] [address], hemoglobin 9, and platelet count 272,000. ASSESSMENT AND PLAN: Patient has Staph aureus tricuspid valve endocarditis with associated pneumonia. My plan is to continue nafcillin. The patient's most recent blood cultures are still pending. 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 cc: Audi Castellanos MD
--- NOTE | 2019-09-30 17:23 | PROGRESS NOTE ---
DATE: 09/30/2019 INTERVAL HISTORY: The patient has been almost a day and a half without fever at this point, which is a large improvement. Most recent blood cultures also remaining negative so far. Otherwise, pretty stable. No new complaints. No acute events overnight. REVIEW OF SYSTEMS: Twelve point review of systems negative except as per interval history. LABORATORY DATA: WBC 12.9, hemoglobin 9, hematocrit 28.9, platelets 272,000. Sodium 132, potassium 4.7, bicarbonate 26, BUN 14, creatinine 0.5, glucose 99. VITAL SIGNS: T-max 99.3 degrees, pulse 108, respirations 24, blood pressure 86/56. O2 saturation 99 to 99 percent on room air. PHYSICAL EXAMINATION: General: No acute distress. Vitals: As above. HEENT: Normocephalic, atraumatic. Moist mucous membranes. Cardiovascular: Slightly tachycardic but regular. No murmurs noted. Pulmonary: Clear to auscultation bilaterally. Abdomen: Soft, nontender, nondistended. Bowel sounds positive. Extremities: Peripheral pulses intact. No clubbing, cyanosis. Neurologic: Cranial nerves grossly intact. No focal deficits. Mild global weakness, stable. Psychiatric: Awake, alert, oriented x3. Cooperative. ASSESSMENT AND PLAN: 1. Acute hypoxemic respiratory failure, septic pulmonary embolus, pneumonia. The patient on antibiotics with nafcillin as per Infectious Disease. Finally without fever for over 24 hours. Most recent blood cultures no growth so far. Hypoxemia, essentially resolved at this point, but still getting treated for multiple infections. 2. Tricuspid valve endocarditis, methicillin-sensitive Staphylococcal aureus bacteremia, infected port. The patient with methicillin-sensitive Staphylococcal aureus bacteremia and tricuspid valve endocarditis favored. Favored to be related to infected port. Port now out. Fevers continued after port was removed and blood cultures remained positive, so a new central line was obtained yesterday and her PICC line was removed as well. Most recent set of blood cultures from the are negative so far. On antibiotics with nafcillin as above and monitoring closely. 3. Sickle cell disease with crisis. Pain reasonably control on current regimen. Monitor. 4. Pulmonary hypertension, aware.
[2019-09-30] MEDS: NS 500 ML IV SCH (17:30)
[2019-09-30] MEDS: BENADRYL IV SCH (18:09)
[2019-09-30] MEDS: PATIENT'S OWN MED PO SCH (20:20)
[2019-09-30] MEDS: HYDREA PO SCH (20:20)
[2019-10-01] MEDS: DILAUDID IV PRN ×7 (00:26→21:17)
[2019-10-01] MEDS: BENADRYL IV PRN ×2 (00:48→06:33)
[2019-10-01] MEDS: PHENERGAN IV PRN ×2 (03:35→09:31)
[2019-10-01] MEDS: OFIRMEV 1000 MG/ISOTONIC SOLN 1,000 MG/100 ML BOTTLE IV SCH ×2 (04:14→08:59)
[2019-10-01] MEDS: NAFCIL 2 GM in NS 100 ML IV SCH ×4 (04:57→23:36)
[2019-10-01] MEDS: HEPARIN SUBQ SCH ×4 (07:33→23:40)
[2019-10-01] MEDS: CLINIMIX E 4.25%-5% SOLUTION 1,000 ML IV SCH (07:34)
[2019-10-01] MEDS: LIPOSYN 20% 250 ML IV SCH ×2 (07:34→09:39)
[2019-10-01] MEDS: TUMS PO SCH ×3 (08:59→16:06)
[2019-10-01] MEDS: FOLIC ACID PO SCH (08:59)
[2019-10-01] MEDS: LASIX IV SCH (08:59)
[2019-10-01] MEDS: PEPCID IV SCH (08:59)
[2019-10-01] MEDS ORDERED: TYLENOL PO PRN (10:02)
[2019-10-01] MEDS ORDERED: PHENERGAN PR PRN (10:06)
[2019-10-01] MEDS ORDERED: PERCOCET-10 PO PRN (10:48)
[2019-10-01 10:59] LABS: BASO# 0.11 X1000 (0.0-0.2); EOS# 0.26 X1000 (0.0-0.7); EOS% 2.4 % (0.0-10.0); HEMATOCRIT 27.4 % (37.0-47.0); HEMOGLOBIN 8.6 g/dL (12.0-16.0); IMM GRAN# 0.08 X1000 (0.0-0.04); IMM GRAN% 0.7 % (0.0-0.5); LYMPH# 3.12 X1000 (1.2-3.4); LYMPH% 28.4 % (20.5-51.1); MCH 27.3 PG (27-31); MCHC 31.4 g/dL (33-37); MONO# 0.52 X1000 (0.11-0.59); MONO% 4.7 % (1.7-9.3); MPV 9.3 FL (7.4-10.4); NEUT% 62.8 % (42.2-75.2); PLT 268 X1000 (130-400); RBC 3.15 XMIL (4.2-5.4); RDW 17.1 % (11.5-14.5); WBC 10.99 X1000 (4.8-10.8)
[2019-10-01 11:16] LABS: ALB/GLOB RATIO 0.6; ALBUMIN 3.1 g/dL (3.5-5.0); DIRECT BILIRUBIN 0.5 mg/dL (0.00-0.20); TOTAL BILIRUBIN 1.05 mg/dL (0.20-1.00); TOTAL PROTEIN 7.9 g/dL (6.3-8.3)
[2019-10-01 11:23] LABS: AGAP 11; BUN 13 mg/dL (8-22); CALCIUM 8.8 mg/dL (8.8-10.2); CHLORIDE 96 mmol/L (98-107); COSMO 265; CREATININE 0.5 mg/dL (0.5-0.9); ESTIMATED GFR > 60; GLUCOSE 97 mg/dL (70-104); POTASSIUM 4.2 mmol/L (3.5-5.1); SODIUM 132 mmol/L (136-145); TCO2 25 mmol/L (25-35)
--- NOTE | 2019-10-01 12:55 | Diag Imaging Result Doc PS360 ---
EXAM: CT THORAX W/O CONTRAST INDICATION: SOB TECHNIQUE: This exam was performed using automated exposure control, adjustment of mA or kV according to patient size, and/or use of iterative reconstruction technique. COMPARISON: 09/18/2019 FINDINGS: There are numerous thick walled cavitary lesions of varying sizes seen throughout both lungs. Many of these correspond to the solid patchy pulmonary opacities seen on the previous fairly recent CT but others are new. For reference, one of the largest cavitary lesions is in the anterior aspect of the right upper lobe and measures up to 5.8 x 4.3 cm axially. Differential considerations include septic emboli, atypical cavitary pneumonia, and granulomatosis with polyangiitis. There is now a small right pleural fluid collection. There is no pneumothorax. Mediastinal and hilar lymphadenopathy is stable. The heart is borderline prominent. There is trace pericardial fluid. Limited views of the upper abdomen reveal splenomegaly similar to the previous study. 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 IMPRESSION: 1.Innumerable thick-walled cavitary lesion seen throughout the lung parenchyma, many of which have progressed from the dense airspace opacities that were seen on the previous CT. Consider septic emboli, atypical cavitary pneumonia, or granulomatosis with polyangiitis. 2.Small right pleural effusion. 3.Stable mediastinal and hilar lymphadenopathy. Electronically signed by Gopi Polo 10/01/2019 12:53 PM
--- NOTE | 2019-10-01 13:55 | PROVIDER PROGRESS NOTE ---
Progress Note Dr. Sousa Progress Note/Pulmonary and or critical care We appreciated progress of care, Complications, change in diagnosis, and instructions to patient under direct supervision of Dr. Sousa. Subjective: We note the level of consciousness, bed (chair) position, family presence (if any), level of lethargy, feeling of symptoms, and changes from baseline condition/symptom. The patient is lying in bed with head covered. She apparently is depressive and tearful at this time. She still has mild dry cough with production at times. She c/o pain 8/10 on arms, chest and back. She just took IV dilaudid about 1 hour 20 mins ago. She is on room air. No SOB noted. The highest temperature in last 24 hours is 99.7 on last night 9pm. Vital Signs: We reviewed EMR current values for Pulse rate, Blood pressure, Pulse rate, respiratory rate and Pulse oximetry. Also noted other values and trends if present (e.g. I/O, CVP). Vital Signs 09/30/19 16:00 09/30/19 19:40 09/30/19 20:58 Temperature 98.5 F 98.2 F 99.7 F H Pulse Rate 112 H 117 H 104 H Respiratory Rate 22 25 H 18 Blood Pressure 94/70 92/67 106/59 O2 Sat by Pulse Oximetry 99 99 97 10/01/19 00:00 10/01/19 03:16 10/01/19 08:54 Temperature 99.0 F 98.3 F 98.6 F Pulse Rate 111 H 116 H 11 L Respiratory Rate 17 17 18 Blood Pressure 99/59 103/54 97/62 O2 Sat by Pulse Oximetry 95 94 L 96 10/01/19 12:19 10/01/19 15:17 Temperature 98.2 F 99.7 F H Pulse Rate 109 H 125 H Respiratory Rate 16 16 Blood Pressure 100/60 91/61 O2 Sat by Pulse Oximetry 97 99 Intake & Output 09/30/19 10/01/19 10/01/19 19:59 07:59 19:59 Intake Total 1184 / 1853 669 / 1853 1352 / 1352 Output Total 1500 / 2200 700 / 2200 800 / 800 Balance -316 / -347 -31 / -347 552 / 552 Intake: Intake, IV Amount 1104 / 1773 669 / 1773 872 / 872 Intake, IVPB 80 / 80 Intake, Oral Amount 480 / 480 Output: Output, Urine Void Amount 1500 / 2200 700 / 2200 800 / 800 Other: Percent of Meal Consumed 50% 50% Number of Bowel Movements 0 0 Physical Examination: General: Lying in bed reading her cellphone with no acute distress noted. HEENT: Trachea midline. Mucus pink and moist. Chest: Even and unlabored. Symmetrical excursion. Auscultation reveals mild crackles RLL. CVS: S1 and S2 noted. Abdomen: Soft. Non-tender. Non-distended. Bowel sounds present. Extremities: No pedal edema. Neuro: A/Ox3; speech fluent; follow simple commands. Labs and Radiology: Reviewed available labs and radiology values available at time of EMR review. Laboratory Results 10/01/19 10/01/19 10/01/19 10:53 10:53 10:53 WBC 10.99 H RBC 3.15 L Hgb 8.6 L Hct 27.4 L MCV 87.0 MCH 27.3 MCHC 31.4 L RDW Std Deviation 17.1 H Plt Count 268 MPV 9.3 Immature Gran % (Auto) 0.7 H Neut % (Auto) 62.8 Lymph % (Auto) 28.4 Ware % (Auto) 4.7 Eos % (Auto) 2.4 Baso % (Auto) 1.0 H Immature Gran # (Auto) 0.08 H Neut # (Auto) 6.90 H Lymph # (Auto) 3.12 [place] # (Auto) 0.52 Eos # (Auto) 0.26 Baso # (Auto) 0.11 Sodium 132 L Potassium 4.2 Chloride 96 L Carbon Dioxide 25 Anion Gap 11 BUN 13 Creatinine 0.5 Estimated GFR/1.73 m2 > 60 BUN/Creatinine Ratio 26 Glucose 97 Calculated Osmolality 265 Calcium 8.8 Total Bilirubin 1.05 H Direct Bilirubin 0.50 H AST 17 ALT 7 L Alkaline Phosphatase 131 H Total Protein 7.9 Albumin 3.1 L Globulin 4.8 Albumin/Globulin Ratio 0.6 Dr. Sousa evaluated and additional note below. Evaluation time in minutes: 10 minutes Assessment: Acute hypoxemic resp failure. Improved. Septic emboli with progression to cavitary lung disease. CT today shows innumerable thick-walled cavitary lesion throughout the lung parenchyma, many of which have progressed from the dense airspace opacities, consider septic emboli, atypical cavitary pneumonia, or granulomatosis with polyangiitis; small right pleural effusion; stable mediastinal and hilar lymphadenopathy. Sickle cell crisis with hemolysis and severe pain Severe anemia secondary to sickle cell crisis Oxacillin sensitive Staph bacteremia, originating from Port-A-Cath, s/p Port-A-Cath removal on 09/26/19 and right internal jugular triple-lumen catheter placement on 09/29/19. Tricuspid valve endocarditis Polysubstance abuse including opioid and marijuana Plan Continue current treatment and supportive care per admitting and other teams on the case. Bronchodilators PRN Antibiotics Appropriate DVT and GI prophylaxis Physical Therapy Encourage incentive spirometer, deep breathing and cough Input was appreciated from Admitting MD and other teams on the case.
[2019-10-01] MEDS: NS 500 ML IV SCH (16:06)
--- NOTE | 2019-10-01 18:33 | PROGRESS NOTE ---
DATE: 10/01/2019 INTERVAL HISTORY: The patient remains afebrile for almost 48 hours. Most recent set of blood cultures remain negative so far. Still complaining of some chest discomfort, but otherwise, no new complaints. No acute events overnight. REVIEW OF SYSTEMS: Twelve point review of systems negative except as per interval history. LABS: WBC 10.9, hemoglobin 8.6, hematocrit 27.4, platelets 268,000. Sodium 132, potassium 4.2, BUN 13, creatinine 0.5, bilirubin 1.0 . VITAL SIGNS: T-max 99.7 degrees, pulse 109, respirations 16, blood pressure 100/60, O2 saturation 97% on 2 L by nasal cannula. IMAGING: CT chest with continued numerous thick-walled cavitary lesions in the lungs consistent with patient's history of septic emboli, small right pleural effusion. PHYSICAL EXAMINATION: General: No acute distress. Vitals: As above. HEENT: Normocephalic, atraumatic. Moist mucous membranes. Cardiovascular: Slightly tachycardic, but regular. No murmurs noted. Pulmonary: A few scattered rales and rhonchi, but overall much clearer than would be expected based on her CT. Abdomen: Soft, nontender, nondistended. Bowel sounds positive. Extremities: Peripheral pulses intact. No clubbing or cyanosis. Neurologic: Cranial nerves grossly intact. No focal deficits identified. Psychiatric: Awake, alert, oriented x3. ASSESSMENT AND PLAN: 1. Acute hypoxic respiratory failure, septic pulmonary emboli. Patient on antibiotics with nafcillin as per Infectious Disease. Has finally been afebrile for approximately 48 hours at this point and most recent blood cultures finally remaining negative. CT still showing significant septic pulmonary emboli, but overall appears to be improving. Hypoxemia, resolved. Continue to monitor. 2. Tricuspid valve endocarditis, methicillin-sensitive Staphylococcus aureus bacteremia, infected port. Patient with methicillin-sensitive Staphylococcus aureus bacteremia on first 3 sets of blood cultures, but most recent set has remained negative for approximately 36 hours so far. Patient with echo showing tricuspid valve endocarditis. Favored to be related to infected port, which has since been removed. Hopeful that if her blood cultures remain negative for another day, then we may be able to get a new access and consider discharge, although, I am not sure how her CT scan with numerous ongoing septic emboli affects that plan. We will see what Infectious Disease and Pulmonology say. 3. Pulmonary hypertension, aware. 4. Sickle cell disease with crisis. The patient with blood counts stable to improving and bilirubin trending down. Little to suggest ongoing crisis. We will begin weaning IV narcotics.
[2019-10-01] MEDS: HYDREA PO SCH ×2 (23:36→23:40)
[2019-10-01] MEDS: PATIENT'S OWN MED PO SCH (23:37)
[2019-10-02] MEDS: DILAUDID IV PRN ×4 (01:13→18:11)
[2019-10-02] MEDS: NAFCIL 2 GM in NS 100 ML IV SCH ×4 (04:39→18:13)
[2019-10-02] MEDS: HEPARIN SUBQ SCH ×3 (05:15→22:43)
[2019-10-02 06:55] LABS: BASO# 0.05 X1000 (0.0-0.2); BASO% 0.5 % (0.0-0.8); EOS# 0.27 X1000 (0.0-0.7); EOS% 2.9 % (0.0-10.0); HEMATOCRIT 26.7 % (37.0-47.0); HEMOGLOBIN 8.3 g/dL (12.0-16.0); IMM GRAN# 0.06 X1000 (0.0-0.04); IMM GRAN% 0.6 % (0.0-0.5); LYMPH# 3.26 X1000 (1.2-3.4); LYMPH% 35.3 % (20.5-51.1); MCH 26.9 PG (27-31); MCHC 31.1 g/dL (33-37); MCV 86.4 FL (81-99); MONO# 0.59 X1000 (0.11-0.59); MONO% 6.4 % (1.7-9.3); MPV 9.5 FL (7.4-10.4); NEUT# 5.01 X1000 (1.4-6.5); NEUT% 54.3 % (42.2-75.2); PLT 292 X1000 (130-400); RBC 3.09 XMIL (4.2-5.4); RDW 17.2 % (11.5-14.5); WBC 9.24 X1000 (4.8-10.8)
[2019-10-02 07:33] LABS: AGAP 12; ALB/GLOB RATIO 0.6; ALBUMIN 3.3 g/dL (3.5-5.0); ALKALINE PHOSPHATASE 133 U/L (32-104); BUN 9 mg/dL (8-22); CALCIUM 8.8 mg/dL (8.8-10.2); CHLORIDE 96 mmol/L (98-107); COSMO 263; CREATININE 0.5 mg/dL (0.5-0.9); ESTIMATED GFR > 60; GLUCOSE 98 mg/dL (70-104); GOT 20 U/L (10-30); GPT 8 U/L (10-36); POTASSIUM 3.8 mmol/L (3.5-5.1); SODIUM 132 mmol/L (136-145); TCO2 24 mmol/L (25-35); TOTAL BILIRUBIN 1.18 mg/dL (0.20-1.00); TOTAL PROTEIN 8.7 g/dL (6.3-8.3)
[2019-10-02 07:34] LABS: ANISOCYTOSIS 1+; HYPOCHROM 1+; LYMPHS 32 % (21-51); MONO 6 % (1-9); SEGS 56 % (42-75)
[2019-10-02 07:35] LABS: LARGE PLATELETS 1+; POIKILOCYTOSIS 1+
[2019-10-02] MEDS: LIPOSYN 20% 250 ML IV SCH (10:22)
[2019-10-02] MEDS: PEPCID PO SCH (10:23)
[2019-10-02] MEDS: FOLIC ACID PO SCH (10:23)
[2019-10-02] MEDS: TUMS PO SCH ×3 (10:24→18:14)
[2019-10-02] MEDS: PERCOCET-10 PO PRN ×3 (13:26→22:44)
[2019-10-02] MEDS: NS 500 ML IV SCH (18:25)
--- NOTE | 2019-10-02 18:26 | PROGRESS NOTE ---
DATE: 10/01/2019 INTERVAL HISTORY: The patient remains with no true fevers. Most recent blood cultures remain no growth. Patient refusing hydroxyurea the last couple of evenings. Discussed with patient that she really needs to be on it and she expressed understanding. Also discussed that we are in the process of trying to wean her off the IV Dilaudid, and that she really needs to use the oral options first. Thus far, she has requested the Dilaudid exclusively and has not taken the oral pain medicine at all. REVIEW OF SYSTEMS: Twelve point review of systems negative except as per interval history. LABS: WBC 9.2, hemoglobin 8.3, hematocrit 26.7, platelets 292,000. Sodium 132, potassium 3.8, BUN 9, creatinine 0.5, bilirubin 1.1. VITAL SIGNS: T-max 99.7 degrees, pulse 107, respirations 20, blood pressure 92/54, O2 saturation 100% on room air. PHYSICAL EXAMINATION: General: No acute distress. Chronically ill appearing. Vital signs: As above. HEENT: Normocephalic, atraumatic. Moist mucous membranes. Cardiovascular: Minimally tachycardic, but regular. Actually a little better than previous. No murmurs noted. Pulmonary: Some scattered rales and rhonchi, essentially stable from previous. Good air entry. Abdomen: Soft, nontender, nondistended. Bowel sounds positive. Extremities: Peripheral pulses intact. No clubbing or cyanosis. Neurologic: Cranial nerves grossly intact. No focal deficits identified. Psychiatric: Asleep, but easily arousable. Alert once awake and oriented x3. ASSESSMENT AND PLAN: 1. Acute hypoxemic respiratory failure, septic pulmonary emboli. Hypoxia resolved. Has been doing well on room air. Patient on antibiotics with nafcillin as per Infectious Disease. The patient has had no amie fevers for 2 or 3 days now. Most recent blood cultures were negative. CT still shows significant septic pulmonary emboli burden, but clinically appears much improved. 2. Tricuspid valve endocarditis, methicillin-sensitive Staphylococcus aureus bacteremia, infected port. Patient with methicillin-sensitive Staphylococcus aureus bacteremia on first 3 sets of blood cultures, but the 4th set has remained negative. Echocardiogram showing tricuspid valve endocarditis, favored to be related to infected port which has been removed. PICC present for the 2nd and 3rd blood cultures also removed. Patient currently with central line which Infectious Disease plans on keeping in place for the duration of her treatment if no further issues with it develop. 3. Pulmonary hypertension, aware. 4. Sickle cell disease with crisis. Still complains of pain, but crisis appears to be resolved. Blood counts essentially stable. Bilirubin has trended down and is now only minimally elevated. Recommended compliance with hydroxyurea with the patient weaning antibiotics in the hope that she may be able to be discharged home early next week, although uncertain if that will happen with her ongoing septic emboli in the lungs.
--- NOTE | 2019-10-02 19:18 | INFECTIOUS DISEASE PROGRESS NO ---
DATE: 10/02/2019 PRESENT ILLNESS: Ms. 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 Chest CT yesterday showed the possibility of septic emboli, cavitary pneumonia, or granulomatosis. MEDICATIONS: She is receiving nafcillin 2 g IV every 6 hours. Based on her sterile blood cultures, today is day 3 of treatment for her bacteremia. PHYSICAL EXAMINATION: Vital Signs: Temperature is 99 degrees, pulse rate 114, respiratory rate 20, blood pressure 101/55, O2 saturation is 95% on room air. General: This is a chronically ill young female. She is lying in the bed, currently complaining of chest pain, and the nurse is giving her some pain medication. HEENT: Atraumatic, normocephalic. Oral mucous membranes are pink and moist. Conjunctivae are pink. Neck: Supple. Trachea is midline. There is a right intrajugular central line in place. That site is without edema, erythema, or drainage. Cardiovascular: Heart rate and rhythm are regular and fast, sinus tachycardia on the monitor. Respiratory: Lung sounds have scattered crackles noted bilaterally and somewhat diminished due to shallow respirations. Abdomen: Soft, flat, and nontender. Bowel sounds are active. Neurologic: She is awake, alert, oriented, and able to move around in the bed independently. LABORATORY AND X-RAY: Today, her white count is 9.24, hemoglobin 8.3, platelet count 292,000. Creatinine is 0.5. Estimated GFR is greater than 60. Total bilirubin is 1.18. Direct bilirubin is 0.5. AST 20, ALT 88, alkaline phosphatase 133. Blood cultures have grown oxacillin-sensitive Staphylococcus aureus; however, the most recent set of cultures have shown no growth after [address] of the chest done yesterday shows thick walled cavitary lesions throughout the lung parenchyma which may be septic emboli, atypical cavitary pneumonia, or granulomatosis. ASSESSMENT AND PLAN: Ms. Henley is being treated for an oxacillin-sensitive Staphylococcus aureus bacteremia with endocarditis and pneumonia with cavitary lesions. There is finally a set of sterile blood cultures on the 4th try. Also, her white blood cell count is back to normal for the first time this admission. There is a pneumonia and some progression of her cavitary lesions as noted on the CT done yesterday. For now, we will continue the nafcillin as ordered. The PICC line has been removed as well as Port-A-Cath, and she has had a central line placed. She will require a total of 6 weeks of treatment for the bacteremia 3 and endocarditis. These plans have been discussed with and recommended by Dr. Castellanos. COMORBIDITIES: For Ms. 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 Dictated by CORRINA Harris for Audi Castellanos MD cc: Audi Castellanos MD MTD
--- NOTE | 2019-10-02 21:43 | PULMONOLOGY PROGRESS NOTE ---
DATE: 10/02/2019 SUBJECTIVE: Ms. Henley is lying in the bed, watching TV. She does complain of some chest discomfort. OBJECTIVE: Vital Signs: Blood pressure is 101/55, with a heart rate of 100. Respirations are 20. Temperature is 99 degrees oral with room air saturations 95 to 98 percent. HEENT: Normocephalic, atraumatic. Mucous membranes are moist. Cardiovascular: Tachycardic. S1 and S2 appreciated. No murmurs. Pulmonary: Scattered rhonchi that mostly clear to cough. Chest rises and falls symmetric with respiration. Chest wall is nontender to palpation. Gastrointestinal: Abdomen is soft, nontender, nondistended, with bowel sounds in all 4 quadrants. Neurologic she: Alert and oriented x3. Extremities: No clubbing, cyanosis, or edema. Calves are nontender bilaterally. LABORATORY AND DIAGNOSTIC DATA: WBC is 9.2, with hemoglobin 8.3, hematocrit 26.7, and platelets 292,000. Sodium 132, potassium 3.8, BUN is 9, creatinine 0.5, with a glucose of 98. Blood cultures reveal methicillin-sensitive Staphylococcus aureus. ASSESSMENT: 1. Acute hypoxemic respiratory failure. Improved. 2. Septic emboli with progression of cavitary lung disease. 3. Sickle cell crisis with hemolysis. 4. Oxacillin-sensitive Staphylococcus bacteremia originating from Port-A-Cath, status post removal 09/26/2019. 5. Tricuspid valve endocarditis. 6. Polysubstance abuse including opioids and marijuana. PLAN: We will continue with her current treatment, bronchodilators p.r.n., antibiotics. We will continue physical therapy, incentive spirometer every 4 hours. Plan was discussed with Dr. Mooney. Dictated by CORRINA Molina for Chuckie Mooney MD cc: CORRINA Molina MD
[2019-10-02] MEDS: HYDREA PO SCH (22:43)
[2019-10-02] MEDS: PATIENT'S OWN MED PO SCH (22:45)
[2019-10-03] MEDS: NAFCIL 2 GM in NS 100 ML IV SCH ×4 (00:39→17:58)
[2019-10-03] MEDS: DILAUDID IV PRN ×3 (02:42→16:22)
[2019-10-03] MEDS: HEPARIN SUBQ SCH ×3 (05:06→21:17)
[2019-10-03] MEDS: PERCOCET-10 PO PRN ×5 (06:08→21:24)
[2019-10-03 07:33] LABS: ALB/GLOB RATIO 0.6; ALBUMIN 2.9 g/dL (3.5-5.0); DIRECT BILIRUBIN 0.6 mg/dL (0.00-0.20); TOTAL BILIRUBIN 1.13 mg/dL (0.20-1.00); TOTAL PROTEIN 7.9 g/dL (6.3-8.3)
[2019-10-03] MEDS: TUMS PO SCH ×3 (10:07→17:58)
[2019-10-03] MEDS: FOLIC ACID PO SCH (10:07)
[2019-10-03] MEDS: PEPCID PO SCH (10:08)
[2019-10-03] MEDS: LIPOSYN 20% 250 ML IV SCH (10:10)
--- NOTE | 2019-10-03 14:50 | PROGRESS NOTE ---
DATE: 10/03/2019 INTERVAL HISTORY: No acute events overnight. She continues to have tachycardia with pulse rate in 90s to 100s. SUBJECTIVE: Ms. Henley complains of her chest hurting and she is taking pretty much around the clock intravenous and oral opioid medications. She states she had a small bowel movement. She could tell me that she came to the hospital because of lung infection and infected port. VITALS: Temperature 97.7 degrees, pulse 99, respiratory 20, blood pressure 100/65, saturating 99% on room air. PHYSICAL EXAMINATION: General: She does not appear in any acute distress. Oral cavity is moist. Lungs: Air entry bilaterally equal. No wheeze, rhonchi, crackles. Cardiovascular: S1, S2 normal. Tachycardic. No murmur or gallop. She has a right-sided neck central line. She also had a horizontal scar of port removal with ely on with mild tenderness around it without any erythema or discharge. Abdomen: Soft, nontender. Extremities: No lower extremity edema. Neurologic: She is alert and oriented x3. LABS: No CBC or BMP today. MICROBIOLOGY: Blood culture was negative on September 29. IMAGING: No new imaging. ASSESSMENT AND PLAN: 1. Methicillin-sensitive Staphylococcus aureus bacteremia associated with infected port leading to septic pulmonary emboli. First set of negative blood culture on September 29. Continue intravenous nafcillin through right central line for a total of 6 weeks. Appreciate Infectious Disease recommendation regarding final antibiotic plan. Based on that, I would consider getting a long-term IV access, home antibiotics set up, possible discharge in next 48 hours once I get better understanding of home situation. 2. Tricuspid valve endocarditis, Methicillin-sensitive Staphylococcus aureus bacteremia, infected port, status post removal. Her acute hypoxic respiratory failure, septic shock, acute kidney injury on presentation have improved. 3. Sickle cell disease with sickle cell crisis on presentation, status post 5 units of packed red blood cell. I discussed with her about weaning her off intravenous opioids and I asked her what plan she would want to help her get off IV pain medication. She, in fact, requested me to increase the frequency to every 4 hours of IV Dilaudid. However, I informed her that it probably was not the ideal plan considering we were planning discharge in the next 48 hours, so at the moment we decided to keep her on IV opioids every 8 hours and oral opioids with a slow taper over the next 24 to 48 hours. DISPOSITION: I will continue to monitor the patient on medical floor. I will try to contact the family to have better understanding of her home situation, as she may need long-term intravenous antibiotics possibly through home infusion. Plan of care discussed with the patient. Her questions have been answered. cc: Elijah Kowalski MD
[2019-10-03] MEDS: NS 500 ML IV SCH (16:35)
--- NOTE | 2019-10-03 18:55 | PULMONOLOGY PROGRESS NOTE ---
DATE: 10/03/2019 SUBJECTIVE: Ms. Henley is sitting up in the bed watching TV. She complains of some chest discomfort. She continues with tachycardia. OBJECTIVE: Vital Signs: Blood pressure is 102/62, with a heart rate of 106, respirations are 20, temperature is 98.6 degrees oral with room air saturations 98%. HEENT: Head is normocephalic, atraumatic. Mucous membranes are moist. Pupils are equal, round, react to light. Neck: Supple with trachea midline. Cardiovascular: Regular rate and rhythm. Tachycardic. S1 and S2 appreciated. No murmur. Pulmonary: Breath sounds are clear with no increased work of breathing noted. Chest rises and falls symmetric with respiration. Gastrointestinal: Abdomen is soft, nontender, nondistended, with bowel sounds in all 4 quadrants. Extremities: No lower extremity edema. Calves are nontender. Neurologic: She is alert and oriented x3. ASSESSMENT: 1. Acute hypoxemic respiratory failure. Resolved. Patient is on room air at present. 2. Septic emboli with progression of cavitary lung disease. 3. Sickle cell crisis with hemolysis. 4. Oxacillin-sensitive Staphylococcus bacteremia originating from Port-A-Cath, status post removal 09/26/2019. 5. Tricuspid valve endocarditis. 6. Polysubstance abuse including opioids and marijuana. PLAN: We will continue with her current treatment, bronchodilators as needed, antibiotics. We will continue with physical therapy, incentive spirometer. Plan was discussed with Dr. Mooney. Dictated by CORRINA Molina for Chuckie Mooney MD cc: CORRINA Molina MD
[2019-10-03] MEDS: HYDREA PO SCH (21:18)
[2019-10-03] MEDS: PATIENT'S OWN MED PO SCH (21:18)
[2019-10-04] MEDS: DILAUDID IV PRN ×4 (00:02→22:58)
[2019-10-04] MEDS: PERCOCET-10 PO PRN ×6 (01:44→22:05)
[2019-10-04] MEDS: NAFCIL 2 GM in NS 100 ML IV SCH ×4 (01:45→22:05)
[2019-10-04] MEDS: HEPARIN SUBQ SCH ×3 (05:50→20:39)
[2019-10-04 07:31] LABS: BASO# 0.06 X1000 (0.0-0.2); BASO% 0.7 % (0.0-0.8); EOS# 0.44 X1000 (0.0-0.7); EOS% 5.4 % (0.0-10.0); HEMATOCRIT 24.2 % (37.0-47.0); HEMOGLOBIN 7.4 g/dL (12.0-16.0); IMM GRAN# 0.04 X1000 (0.0-0.04); IMM GRAN% 0.5 % (0.0-0.5); LYMPH# 2.61 X1000 (1.2-3.4); MCH 26.6 PG (27-31); MCHC 30.6 g/dL (33-37); MCV 87.1 FL (81-99); MONO# 0.36 X1000 (0.11-0.59); MONO% 4.4 % (1.7-9.3); MPV 8.8 FL (7.4-10.4); NEUT# 4.64 X1000 (1.4-6.5); PLT 326 X1000 (130-400); RBC 2.78 XMIL (4.2-5.4); RDW 17.5 % (11.5-14.5); WBC 8.15 X1000 (4.8-10.8)
[2019-10-04 07:40] LABS: AGAP 11; BUN 7 mg/dL (8-22); CALCIUM 8.7 mg/dL (8.8-10.2); CHLORIDE 99 mmol/L (98-107); COSMO 267; CREATININE 0.5 mg/dL (0.5-0.9); ESTIMATED GFR > 60; GLUCOSE 115 mg/dL (70-104); MAGNESIUM 1.6 mg/dL (1.5-2.7); POTASSIUM 3.5 mmol/L (3.5-5.1); SODIUM 134 mmol/L (136-145); TCO2 24 mmol/L (25-35)
[2019-10-04] MEDS: TUMS PO SCH ×3 (10:18→17:51)
[2019-10-04] MEDS: FOLIC ACID PO SCH (10:18)
[2019-10-04] MEDS: PEPCID PO SCH (10:18)
--- NOTE | 2019-10-04 15:07 | PULMONOLOGY PROGRESS NOTE ---
DATE: 10/04/2019 SUBJECTIVE: Ms. Henley is sitting up in the bed, talking on the phone. She does complain of some chest discomfort. OBJECTIVE: Vital Signs: Blood pressure is 101/55 with heart rate of 96, respirations are 20, temperature is 98 degrees oral with room air saturations 100%. HEENT: Head is normocephalic, atraumatic. Mucous membranes are moist. Neck is supple with trachea midline. Cardiovascular: Regular rate and rhythm. S1, S2 appreciated. No murmur or gallop. Central line is noted to the right neck. Pulmonary: Breath sounds are clear with no increased work of breathing noted. Chest rises and falls symmetrically with respiration. Gastrointestinal: Abdomen is soft, nontender, nondistended with bowel sounds in all 4 quadrants. Extremities: No clubbing, cyanosis, or edema. Neurologic: She is alert and oriented x3. LABS: WBC is 8.1 with hemoglobin 7.4, hematocrit 24.2, and platelets 326,000. Sodium 134, potassium 3.5, BUN 7, creatinine 0.5, glucose of 115. ASSESSMENT: 1. Methicillin sensitive Staphylococcus aureus bacteremia bridging for Port-A-Cath, status post removal 09/26/2019. 2. Acute hypoxemic respiratory failure, resolved. 3. Septic emboli with progression of cavitary lung disease. 4. Tricuspid valve endocarditis. 5. Sickle cell crisis with hemolysis. 6. Polysubstance abuse including opioids and marijuana. PLAN: Will continue with her current treatment. Bronchodilators as needed. Antibiotics with incentive spirometer. Plan was discussed with Dr. Mooney. Dictated by CORRINA Molina for Chuckie Mooney MD cc: CORRINA Molina MD
[2019-10-04] MEDS ORDERED: MAGNESIUM SULFATE 2 GM/S.W.I. 2 GM/50 ML IVPB IV ONE (17:49)
[2019-10-04] MEDS ORDERED: KLOR-CON PO ONE (17:49)
[2019-10-04] MEDS: MIRALAX PO SCH (17:59)
--- NOTE | 2019-10-04 18:12 | PROGRESS NOTE ---
DATE: 10/04/2019 INTERVAL HISTORY: No acute events overnight. SUBJECTIVE: Ms. Henley is denying any new complaints. She wanted me to increase her pain medication dose from 1 tablet to 2 tablets. I explained to her about the risk associated with narcotic pain medication including respiratory depression. I explained to her that I may not be able to give her 2 Percocet every 4 hours but if she wanted I could give her every 6 hours, but eventually we decided to keep the current pain medication regimen. VITAL SIGNS: Currently temperature 98.4 degrees, pulse 101, respiratory 22, blood pressure 110/60, saturating 100% on room air. PHYSICAL EXAMINATION: General: Not in acute distress. HEENT: Oral cavity is moist. Lungs: Air entry bilaterally equal. No wheeze, rhonchi, crackles. Cardiovascular: S1, S2 normal. No murmur or gallop. She has a right-sided neck central line. Abdomen: Soft, nontender. Extremities: No lower extremity edema. She has horizontal scar of port removal with ely with mild tenderness around it without any erythema or discharge. Neurologic: She is alert and oriented x3. She does have a flat affect. LABS: Suggestive of normocytic anemia, normal platelet count, normal electrolytes largely within acceptable range with normal kidney function. She does have low magnesium and slightly low potassium which is currently being repleted. ASSESSMENT AND PLAN: 1. Methicillin-sensitive Staphylococcus aureus bacteremia associated with infected right-sided chest port leading to septic pulmonary emboli. First set of negative blood cultures on September 29. Continue intravenous nafcillin through right-sided central line for a total of 6 weeks. After discussing with ID team, I will get possibly PICC line on October 05 for 6 weeks IV antibiotics planned. I explained to the patient about calling her family members to the hospital for antibiotic education in next 24 hours or so. Based on my discussion with ID, I will consult Traffic Control Specialist for home antibiotics. She would need close pulmonology followup for her cavitary lung lesions. 2. Tricuspid valve endocarditis with methicillin-sensitive Staphylococcus aureus associated with infected port, status post removal of port. She should have outpatient follow up with her Oncologist in the future if she needs her port again. 3. Sickle cell disease with sickle cell crisis on presentation, status post 5 units of packed red blood cell. Her anemia was because of sickle cell crisis, which now has resolved. Continue pain management with intravenous hydromorphone and oral Percocet. I will keep her on a bowel regimen to avoid constipation. 4. Others. Her acute hypoxic respiratory failure, septic shock, acute kidney injury on presentation have resolved. Her hypomagnesemia and hypokalemia are currently being repleted. 5. I will also keep her on hydroxyurea for sickle cell disease. 6. Disposition. Monitor patient inside the hospital. Plan is to get long-term IV access for intravenous antibiotics in the next 24 to 48 hours and accordingly, plan discharge. Plan of care discussed with the patient. She is in agreement. All of her questions have been answered. cc: Elijah Kowalski MD
[2019-10-04] MEDS: DULCOLAX PR SCH (20:38)
[2019-10-04] MEDS: PATIENT'S OWN MED PO SCH (20:38)
[2019-10-04] MEDS: HYDREA PO SCH (20:39)
[2019-10-05] MEDS: PERCOCET-10 PO PRN ×4 (02:47→16:52)
[2019-10-05] MEDS: NAFCIL 2 GM in NS 100 ML IV SCH ×3 (02:48→16:52)
[2019-10-05] MEDS: HEPARIN SUBQ SCH ×2 (05:10→12:30)
[2019-10-05 07:26] LABS: INR 1.22; PROTIME 15.6 Seconds (11.0-16.0)
[2019-10-05 07:27] LABS: PTT 37.5 Seconds (22.3-41.8)
[2019-10-05] MEDS: DILAUDID IV PRN ×2 (07:27→15:29)
[2019-10-05] MEDS: DULCOLAX PR SCH (08:33)
[2019-10-05] MEDS: PEPCID PO SCH (08:34)
[2019-10-05] MEDS: FOLIC ACID PO SCH (08:35)
[2019-10-05] MEDS: MIRALAX PO SCH (08:35)
--- NOTE | 2019-10-05 10:15 | PROVIDER PROGRESS NOTE ---
Progress Note Dr. Sousa Progress Note/Pulmonary and or critical care We appreciated progress of care, Complications, change in diagnosis, and instructions to patient under direct supervision of Dr. Sousa. Subjective: We note the level of consciousness, bed (chair) position, family presence (if any), level of lethargy, feeling of symptoms, and changes from baseline condition/symptom. The patient is lying in bed with no acute distress noted. She is very pleasant and cooperative. She is still having some generalized pain, but is feeling better. She still has some dry cough, but is improving. She has been on room air since 09/28/19 and tolerates well. She reports that she has been using incentive spirometer. Vital Signs: We reviewed EMR current values for Pulse rate, Blood pressure, Pulse rate, respiratory rate and Pulse oximetry. Also noted other values and trends if pr esent (e.g. I/O, CVP). Vital Signs 10/04/19 12:00 10/04/19 16:00 10/04/19 19:28 Temperature 98.4 F 98.4 F Pulse Rate 107 H 101 H Respiratory Rate 22 22 Blood Pressure 109/67 110/60 O2 Sat by Pulse Oximetry 100 100 98 10/04/19 20:00 10/05/19 00:00 10/05/19 04:00 Temperature 98.2 F 97.7 F 98.2 F Pulse Rate 107 H 97 H 95 H Respiratory Rate 20 20 20 Blood Pressure 102/67 91/55 96/64 O2 Sat by Pulse Oximetry 100 100 100 10/05/19 07:20 10/05/19 08:39 Temperature 99.2 F Pulse Rate 104 H 108 H Respiratory Rate 22 16 Blood Pressure 109/60 O2 Sat by Pulse Oximetry 100 99 Intake & Output 10/04/19 10/05/19 10/05/19 19:59 07:59 19:59 Intake Total 650 / 650 400 / 400 Output Total 900 / 900 Balance -250 / -250 400 / 400 Intake: Intake, Oral Amount 650 / 650 400 / 400 Output: Output, Urine Void Amount 900 / 900 Other: Percent of Meal Consumed 100% 50% 75% Number of Continent Voids Not 2 1 Measured Number of Bowel Movements 0 Physical Examination: General: Lying in bed with no acute distress noted. HEENT: Atraumatic. Normocephalic. Trachea midline. Mucus pink and moist. Chest: Even and unlabored. Symmetrical excursion. Clear to auscultation bilaterally. CVS: S1 and S2 noted. Abdomen: Soft. Non-tender. Non-distended. Bowel sounds present. Extremities: No pedal edema. Neuro: A/Ox3; speech fluent; follow simple commands. Labs and Radiology: Reviewed available labs and radiology values available at time of EMR review. Laboratory Results 10/05/19 06:40 PT 15.6 INR 1.22 PTT (Actin FS) 37.5 Dr. Sousa evaluated and additional note below. Evaluation time in minutes: 10 minutes Assessment: Acute hypoxemic resp failure. Improved. Septic emboli with progression to cavitary lung disease. CT on 10/01/19 shows innumerable thick-walled cavitary lesion throughout the lung parenchyma, many of which have progressed from the dense airspace opacities, consider septic emboli, atypical cavitary pneumonia, or granulomatosis with polyangiitis; small right pleural effusion; stable mediastinal and hilar lymphadenopathy. Sickle cell crisis with hemolysis and severe pain Severe anemia secondary to sickle cell crisis. Worse. Oxacillin sensitive Staph bacteremia, originating from Port-A-Cath, s/p Port-A-Cath removal on 09/26/19 and right internal jugular triple-lumen catheter placement on 09/29/19. Tricuspid valve endocarditis Polysubstance abuse including opioid and marijuana Plan Continue current treatment and supportive care per admitting and other teams on the case. Bronchodilators prn. Antibiotic (Nafcillin) per Dr. Castellanos. Appropriate DVT and GI prophylaxis Physical Therapy Encourage incentive spirometer, deep breathing and cough Input was appreciated from Admitting MD and other teams on the case.
[2019-10-05] MEDS ORDERED: NS 250 ML ONE (11:28)
--- NOTE | 2019-10-05 15:34 | INFECTIOUS DISEASE PROGRESS NO ---
DATE: 10/05/2019 PRESENT ILLNESS: The patient has an oxacillin sensitive Staph aureus tricuspid valve endocarditis with associated septic emboli causing pneumonia, some of which are cavitary. MEDICATIONS: The patient is receiving nafcillin 2 g IV every 6 hours. This is day 6 of treatment with nafcillin. PHYSICAL EXAMINATION: Vital Signs: Temperature is 97.9 degrees, pulse 107, respirations 16, blood pressure 108/64. General: This is an ill-appearing young female, she is in no acute distress. Head/eyes/ears/nose/throat: She can hear my spoken words and see near objects. She does not have any white coating on her tongue. Neck: No meningismus. Lungs: Clear to auscultation. Cardiovascular: Regular heart rate. Abdomen: Soft and nontender. Neurologic: The patient is awake. She can move her extremities. There is no tremor. LAB AND X-RAY: There is no new radiographic studies. CBC shows a white count of 8150, hemoglobin 7.4, and platelet count 326,000. Creatinine is 0.5. GFR is greater than 60. ASSESSMENT PLAN PATIENT HAS: The patient has Staph aureus tricuspid valve endocarditis with associated septic emboli causing pneumonia and nodules, some of which are cavitary. The plan is to send the patient home on IV nafcillin to be given by constant infusion. The patient is having a peripherally inserted central catheter placed in her right arm now. I have requested for the patient to come to my office in 2-1/2 weeks and then again at 5 weeks at which time the antibiotics hopefully will be stopped. The patient will be examined in the office and we will need a repeat chest x-rays to see if the pneumonia is clearing. 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 cc: Audi Castellanos MD
[2019-10-05 15:56] VITALS: BP 106/65
--- NOTE | 2019-10-05 16:09 | PROGRESS NOTE ---
DATE: 10/05/2019 INTERVAL HISTORY: No acute events overnight. SUBJECTIVE: Ms. Henley denies new complaints. VITAL SIGNS: Temperature 97.9 degrees, pulse 107, respiratory rate 16, blood pressure 108/64, saturating 97% room air. PHYSICAL EXAMINATION: HEENT: Not in acute distress. Oral cavity is moist. Lungs: Air entry bilaterally equal. No wheeze or crackles. Cardiovascular: S1-S2 normal. No murmur or gallop. She has a right-sided neck central line. Abdomen: Soft, nontender. Extremities: No lower extremity edema. Neurologic: She is alert and oriented x3. LABORATORY DATA: No new labs today except coagulation which shows INR of 1.22. She got a right- sided PICC line today. ASSESSMENT AND PLAN: 1. Methicillin-sensitive Staphylococcus aureus bacteremia associated with infected right-sided chest port. 2. Bilateral cavitary pneumonia due to septic pulmonary emboli. 3. Tricuspid valve endocarditis with them methicillin-sensitive Staphylococcus aureus. 4. Sickle cell crisis. 5. Acute hypoxic respiratory failure, septic shock and acute kidney injury on presentation have resolved. 6. Anemia due to sickle cell crisis. PLAN: 1. The patient got a right arm PICC line today. Plan is to discharge her on intravenous nafcillin for a total of 6 weeks. 1st day of negative blood culture being 09/29/2019. Currently antibiotic education is pending. 2. She should be compliant with her hydroxyurea and follow up with her sickle-cell doctor in [place]. 3. I will keep her on MiraLAX to avoid constipation. 4. She should also follow up with Pulmonology for her cavitary lung pneumonia. DISPOSITION: Patient is medically stable to be discharged. She has already got a PICC line and antibiotic setup is in the process. Once patient receives antibiotic education. She would be okay to be discharged either today or tomorrow. Plan of care discussed with the patient. Her questions have been satisfactorily answered. cc: Elijah Kowalski MD
--- NOTE | 2019-10-06 13:26 | DISCHARGE SUMMARY ---
ADMISSION DATE: 09/18/2019 DISCHARGE DATE: 10/05/2019 DISCHARGE DISPOSITION: Home with home IV antibiotics through PICC line. DISCHARGE CONDITION: Hemodynamically stable. She denies any chest pain, shortness of breath. She has occasional nonproductive cough. No nausea or vomiting. She is having regular bowel movement. DISCHARGE DIAGNOSES: 1. Methicillin-sensitive Staphylococcus aureus bacteremia associated with infected right-sided chest port. 2. Bilateral cavitary pneumonia associated with septic pulmonary emboli. 3. Tricuspid valve endocarditis. 4. 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 5. Acute anemia due to sickle cell crisis. 6. Acute hypoxic respiratory failure due to bilateral pneumonia. 7. Septic shock. 8. Acute kidney injury. 9. Intractable nausea and vomiting. 10. Thrombocytopenia. OTHER DIAGNOSES: 1. History of sickle cell disease with multiple episodes of crisis. 2. History of polysubstance dependence. 3. Avascular necrosis of shoulder and hip joint. 4. History of asthma. 5. History of severe constipation and rectal fecal impaction. 6. History of depression. 7. History of severe hemolytic anemia. DISCHARGE MEDICATIONS: 1. Hydroxyurea 500 mg at nighttime. 2. Jadenu 2 tablets at nighttime, 360 mg tablet. 3. Fentanyl 12 mcg every 3 days. 4. Folic acid 1 mg daily. 5. MiraLAX 17 grams p.o. daily. 6. Intravenous nafcillin 2 grams intravenously every 6 hours for a total of 6 weeks. First day of antibiotic would be 09/29/2019. DISCHARGE PHYSICAL EXAMINATION: Vital Signs: Temperature 99.1 degrees, pulse 111, respiratory rate 16, blood pressure 106/65, saturating 100% on room air. General: Not in acute distress. HEENT: Oral cavity is moist. Lungs: Air entry bilaterally equal. No wheeze, rhonchi, crackles. Cardiovascular: No murmur or gallop. Abdomen: Soft, nontender. Extremities: No lower extremity edema. Neurologic: She was alert and oriented x3. LABORATORY DATA: At the time of discharge, WBC 8.1, hemoglobin 7.4, platelets 326,000. INR 1.2. BUN 7, creatinine 0.5, sodium 134, potassium 3.5. Magnesium 1.6. MICROBIOLOGY: Blood culture initially on 09/18/2018 was growing Staphylococcus aureus, which was sensitive to oxacillin. Blood culture on 09/29/2019, two sets, did not grow any bacteria. SIGNIFICANT IMAGING DURING HOSPITAL ADMISSION: Chest, abdomen, pelvis CT on 09/18/2019 had decreased splenomegaly, worsened patchy pulmonary opacities, the possibility of pneumonia could not be excluded, increased renal size, possibility of nephritis could not be excluded. Renal ultrasound had suggested bilateral enlarged kidneys, splenomegaly, and increase in the size of the kidneys from previous renal ultrasound. Echocardiogram on 09/26/2019 had suggested vegetation attached to the tricuspid valve, without any pericardial effusion, with ejection fraction of 60%. Chest CT on 10/01/2019 had suggested innumerable thick-walled cavitary lesions seen throughout the lung parenchyma, which had progressed from the dense airspace consolidation that was seen on previous CT, small right-sided pleural effusion, and stable mediastinal and hilar lymphadenopathy. Electrocardiogram on 09/18/2019 had sinus tachycardia. PROCEDURES DURING HOSPITAL ADMISSION: 1. On 09/26/2019, the patient underwent port removal. 2. On 09/29/2019, she underwent a placement of right internal jugular triple-lumen catheter placement. HOSPITAL COURSE SUMMARY: Ms. Henley is a 24-year-old, lady, who initially presented on 09/18/2019 with chief complaints of nausea, vomiting, back pain, chest pain, rib cage pain, lightheadedness, shortness of breath, and decreased urine output. In the emergency room, she was found to have a temperature of 98.6 degrees, pulse of 136, blood pressure of 85/49, and oxygen saturation of 98% on room air. Her initial lab had detected leukocytosis with WBC of 31,000, severe anemia with hemoglobin of 4.6, thrombocytopenia with platelet count of 98,000, acute kidney injury with a creatinine of 5.2, so the Hospitalist team was consulted for further management. The patient was also positive for cannabis and oxycodone. Intravenous fluids were administered, and the patient was admitted for septic shock, acute kidney injury, sickle cell crisis, and intravenous antibiotics were administered. While inside the hospital, she developed episodes of fever with temperature as high as 100.4 degrees, and her blood culture grew Staphylococcus aureus, which was methicillin sensitive. It was thought that the source of her bacteremia was her port. Infectious Diseases were consulted, and Port-A-Cath was removed. She was also noticed to have pulmonary infiltrate, which was thought to be hematogenously spread pneumonia related to septic emboli as echocardiogram detected tricuspid valve endocarditis. With intravenous antibiotics, the patient's condition improved, and eventually her blood cultures turned negative, which were collected on 09/29/2019, so it was decided to discharge her on intravenous nafcillin for a total of 6 weeks through a PICC line, which was placed on the day of discharge. She was advised to have follow up with infection doctor and lung doctor in about 1 to 2 weeks' time. While inside the hospital, she had also developed sickle cell crisis, for which she received 5 units of packed red blood cell transfusion, following which her hemoglobin was stable. She was advised to be compliant with her hydroxyurea. She required frequent doses of intravenous opioid pain medication to address her sickle cell crisis. At the time of discharge, she is hemodynamically stable. Plan of care was discussed with her. She was allowed to ask questions, and all of her questions were satisfactorily answered. TIME SPENT: More than 30 minutes of time was spent discharging this patient. cc: Elijha Kowalski MD
== END 2019-10-05 19:21 | disposition home health service (06) | DRG 314 ==
LOC: ED 06:13 → EDIPHOLD 11:53 → SUATTDRO 11:53 → ICU 14:06 → 4N 09-20 09:42 → 2N 09-23 13:42 → 4N 09-30 20:45
PROVIDERS: ATTEND Internal Medicine

== ENCOUNTER 2019-11-16 09:38 | Inpatient (IN) ==
[2019-11-16] MEDS ORDERED: FENTANYL IV ONE (10:29)
[2019-11-16] MEDS ORDERED: NS 1,000 ML IV ONE ×2 (10:29→15:27)
[2019-11-16] MEDS ORDERED: ZOFRAN IV ONE (10:30)
--- NOTE | 2019-11-16 10:32 | PROVIDER DOCUMENTATION ---
HPI-General Adult - General Chief Complaint: Sickle Cell Crisis Stated Complaint: SICKLE CELL PAIN Time Seen by Provider: 11/16/19 09:57 Source: patient Allergies/Adverse Reactions: Patient Allergies Allergy/AdvReac Type Severity Reaction Status Date / Time meperidine HCl * Allergy Severe SHORTNESS Verified 11/16/19 10:20 [From Demerol] OF BREATH; AND HEADACHE vancomycin Allergy Severe RASH Verified 11/16/19 10:20 latex Allergy Mild RASH Verified 11/16/19 10:20 Home Medications: Home Medication List Medication Instructions Recorded Confirmed Last Taken Type Hydromorphone HCl [Dilaudid] 4 mg PO Q4H PRN #10 tab 10/21/19 11/12/19 11/16/19 Rx CephALEXIN [Keflex] 500 mg PO BID #120 cap 11/09/19 11/12/19 11/16/19 Rx Hydroxyurea [Siklos] 1.5 tab PO QHS 11/16/19 11/16/19 11/15/19 History - History of Present Illness -Gen Adult Nature of Presenting Problems: 24 year old AA female with a pmh significant for sickle cell disorder, presenting to the emergency department complaining of lower back and leg pain that began gradually last night and was worse this morning when she woke up. She described the pain as being sharp, non-radiating, constant, exacerbated by movement and made better with rest. She normally takes Dilaudid at home for pain, but states this was not controlling her pain. She denies any inciting event and is denying all ROS questioning. Review of Systems - Adult - REVIEW OF SYSTEMS - ADULT Constitutional: reports: beata. denies: chills, fever Eyes: denies: blurred vision, double vision Ears, Nose, Mouth & Throat: denies: hearing loss, tinnitus, sinus problem, mouth/dental pain, throat pain, throat swelling Cardiovascular: denies: chest pain, edema, irregular heart rate, palpitations, syncope Respiratory: reports: chronic cough. denies: dyspnea on exertion, hemoptysis, pleurisy, shortness of breath Gastrointestinal: denies: abdominal pain, diarrhea, nausea, vomiting Genitourinary: denies: dysuria, discharge, hematuria, incontinence, urinary retention, urgency Musculoskeletal: reports: back pain (lumbar region), muscle aches (lower legs, no specified area). denies: muscle weakness, neck pain Integumentary: reports: no symptoms reported Neurological: denies: dizziness/vertigo, headache/migraines, loss of balance, numbness, paresthesia, seizure, slurred speech Psychiatric: reports: no symptoms reported Endocrine: reports: no symptoms reported Hematologic/Lymphatic: reports: low blood count Allergic/Immunologic: reports: no symptoms reported All Other Systems: Reviewed and Negative Past History - Adult - PAST MEDICAL HISTORY-ADULT Review of Records: reports: Old Records Reviewed, Nursing Assessment Review, Medications Reviewed, Social history reviewed & non-contributory. Major Childhood Illnesses: reports: denies history, other (Sickle Cell) Cardiovascular: reports: denies history Respiratory: reports: asthma Gastrointestinal: reports: cholelithiasis Obstetrical/Gynecological: reports: denies history Genitourinary: reports: denies history Musculoskeletal: reports: chronic pain (sickle cell) Neurological: reports: Seizures/Epilepsy Psychiatric: reports: depression Endocrine/Immune: reports: Sickle Cell disease Sickle Cell Genotype:: SS Other Conditions: reports: denies history - PRIOR SURGERIES/PROCEDURES Surgical/Procedure History: reports: reviewed, not pertinent, cholecystectomy, indwelling device - IMMUNIZATION STATUS Childhood Immunizations: See Nurse Assessment Flu Vaccine: See Nurse Assessment - FAMILY HISTORY Family History: sickle cell disease/trait - SOCIAL HISTORY Smoking: denies Substance Use: marijuana Alcohol Use Frequency: occasionally Physical Exam-General - PHYSICAL EXAM-ADULT Initial Vital Signs Reviewed: Yes (sinus tachycardia) - CONSTITUTIONAL General Appearance: appears well, alert, no apparent distress, thin - EYES Eyes: PERRL/EOMI, pale conjunctivae - HEAD, EARS, NOSE, MOUTH & THROAT HENMT: normocephalic/atraumatic. negative: moist mucous membranes (dry) - NECK Neck: non-tender, full range of motion, supple, normal inspection. negative: Brudzinski's sign, C-spine tenderness, meningismus, thyromegaly - RESPIRATORY Respiratory: chest non-tender, lungs clear, normal breath sounds, no pleuratic chest pain, no respiratory distress, no accessory muscle use. negative: crackles, rales, rhonchi - CARDIOVASCULAR Cardiovascular: normal peripheral pulses, no gallop, no JVD, no murmur, tachycardia (sinus tachycardia), other (large scar from prior surgery visualized on upper right thorax) - GASTROINTESTINAL (ABDOMEN) Abdominal Exam: normal bowel sounds, soft, tenderness (suprapubic). negative: McBurney's point tenderness, Allen's sign, psoas sign, Rovsing's sign - MUSCULOSKELETAL Back Exam: CVA tenderness (right side), muscle spasm (right paraspinal region near L2 - L5, site is TTP). negative: vertebral tenderness Extremity: normal range of motion, normal inspection, no pedal edema Peripheral Pulses: radial (R): 2+, radial (L): 2+ DTR: knee (R): 2+, knee (L): 2+, ankle (R): 2+, ankle (L): 2+ - SKIN Integumentary: warm/dry, other (capillary refill is greater than 2 seconds) - NEUROLOGIC Neurologic: sub acute care nurse II-XII nml as tested, grossly normal, no motor/sensory deficits - PSYCHIATRIC Psych/Mental Status: normal mood/affect, normal thought content, normal thought process, oriented x 3 Progress - PLAN OF CARE/RESULTS Progress/Plan/Lab Results: Vital Signs - 8 hr 11/16/19 09:40 Temperature 99.4 F Pulse Rate 122 H Respiratory Rate 16 Blood Pressure 105/66 O2 Sat by Pulse Oximetry 98 Orders Category Date Time Status NEWS Score 2-4:Order NEWS Lactate Series NOW Care 11/16/19 09:42 Active BASIC METABOLIC PANEL [CHEM] Stat Lab 11/16/19 10:02 Ordered CBC WITH ELECTRONIC DIFF [HEME] Stat Lab 11/16/19 10:01 Uncollected LACTATE, PLASMA [CHEM] Lab 11/16/19 09:45 Uncollected LACTATE, PLASMA [CHEM] Lab 11/16/19 12:45 Uncollected LACTATE, PLASMA [CHEM] Lab 11/16/19 15:45 Uncollected RETIC COUNT [HEME] Stat Lab 11/16/19 10:01 Uncollected Fentanyl Med 11/16/19 10:29 Once 25 microgm IV NOW ONE Ns 1000 ml IV Bolus X1 Med 11/16/19 10:29 Ordered 0.9% Sodium Chloride Inj [Ns] 1,000 ml IV 999 mls/hr Ondansetron [Zofran] Med 11/16/19 10:30 Once 4 mg IV NOW ONE Patient made aware of plan to be admitted to the hospital under the care of Dr. Romeo for treatment of her acute pyelonephritis. Result Diagrams: 11/16/19 10:26 11/16/19 10:26 - XRAY 1 XRAY Study: Chest Impression: Abnormal, See EMR Report (EXAM: CHEST-2 VIEWS 11/16/2019 HISTORY: Decreased air movement in lower lobes TECHNIQUE: Two views the chest AP and lateral sitting COMMENT: There is still some nodular and cavitary opacities bilaterally consistent with the previous diagnosis of septic emboli. Considering the degree of inspiration this has not changed significantly since 11/12/2019. IMPRESSION: Stable chest. Electronically signed by Gary Quiñones 11/16/2019 1:27 PM 11/16/19 1327 Interpreting Physician: Gary Quiñones MD Dictated Date/Time: 11/16/19 1326 cc: Raghu Wood DO; La Santizo) - CONSULTS/PCP/HOSPITALIST Notification #1 *Consult/PCP/Hospitalist*: Dr. Hernadez Time Discussed: 13:57 (s/w PASSENGER BRAKEMAN Tabitha, accepted inpt) Reason/Comments: sepsis likely secondary to acute pyelonephritis Consult Disposition: Will see in ED, Admit Departure - Departure Date of Disposition Decision: 11/16/19 Time of Disposition Decision: 13:39 (Admit inpatient) DIAGNOSIS: Sinus tachycardia, Sepsis, Pyelonephritis Leucocytosis Qualifiers: Leukocytosis type: bandemia Qualified Code(s): D72.825 - Bandemia Disposition: ADMITTED INPATIENT 09 Certified Medical Emergency: Emergent Condition: Fair Referrals and Follow-Ups: La Santizo CRNP [Primary Care Provider] - - Critical Care Note This patient required my direct & personal management of CC.: Yes Total Time (mins): 65 Critical Care Statement: This patient required my direct personal management to treat or rule out processes, the absence of which, could potentiallly result in sudden, clinically significant life or limb threatening deterioration. Attestation - Physician/ EDNA Attestation Patient care was provided by Advanced Practice Provider:: No The physician spent face to face time with patient:: Yes Advanced Practice Provider documentation review:: Supervising physician onsite and consulted in the evaluation and care of this patient. The physician did have a face to face encounter with the patient.
[2019-11-16 10:45] LABS: BASO# 0.05 X1000 (0.0-0.2); BASO% 0.3 % (0.0-0.8); EOS% 3.8 % (0.0-10.0); HEMATOCRIT 30.2 % (37.0-47.0); HEMOGLOBIN 9.6 g/dL (12.0-16.0); IMM GRAN# 0.07 X1000 (0.0-0.04); IMM GRAN% 0.4 % (0.0-0.5); LYMPH# 3.34 X1000 (1.2-3.4); MCH 25.1 PG (27-31); MCHC 31.8 g/dL (33-37); MCV 78.9 FL (81-99); MONO# 1.02 X1000 (0.11-0.59); MONO% 5.5 % (1.7-9.3); MPV 8.5 FL (7.4-10.4); NEUT# 13.37 X1000 (1.4-6.5); PLT 251 X1000 (130-400); RBC 3.83 XMIL (4.2-5.4); RDW 22.4 % (11.5-14.5); RETIC% 3.34 % (0.8-2.1); RETIC-HE 23.4 PG (28.2-36.6); WBC 18.55 X1000 (4.8-10.8)
[2019-11-16 10:56] LABS: AGAP 12; BUN 9 mg/dL (8-22); CALCIUM 9.5 mg/dL (8.8-10.2); CHLORIDE 95 mmol/L (98-107); COSMO 265; CREATININE 0.5 mg/dL (0.5-0.9); ESTIMATED GFR > 60; GLUCOSE 96 mg/dL (70-104); POTASSIUM 4.2 mmol/L (3.5-5.1); SODIUM 133 mmol/L (136-145); TCO2 26 mmol/L (25-35)
[2019-11-16] MEDS ORDERED: DILAUDID IV ONE (11:42)
[2019-11-16 13:06] LABS: URINE SOURCE CLEAN CATCH
[2019-11-16 13:09] LABS: BILIRUBIN URINE NEGATIVE (NEGATIVE); BLOOD URINE NEGATIVE (NEGATIVE); COLOR YELLOW; GLUCOSE URINE NEGATIVE (NEGATIVE); KETONE URINE NEGATIVE (NEGATIVE); LEUKOCYTES URINE LARGE (NEGATIVE); NITRITE URINE NEGATIVE (NEGATIVE); PROTEIN URINE TRACE mg/dL (NEGATIVE); SP GRAVITY URINE 1.013; TURBIDITY URINE HAZY (CLEAR); UROBILINOGEN URINE 6 mg/dL (NORMAL)
[2019-11-16 13:16] LABS: UR EPITHELIAL CELLS <10 /HPF (<10); URINE BACTERIA NEGATIVE /HPF; URINE RBC <10 /HPF (<10); URINE WBC 20-40 /HPF (<10)
--- NOTE | 2019-11-16 13:29 | Diag Imaging Result Doc PS360 ---
EXAM: CHEST-2 VIEWS 11/16/2019 HISTORY: Decreased air movement in lower lobes TECHNIQUE: Two views the chest AP and lateral sitting COMMENT: There is still some nodular and cavitary opacities bilaterally consistent with the previous diagnosis of septic emboli. Considering the degree of inspiration this has not changed significantly since 11/12/2019. IMPRESSION: Stable chest. Electronically signed by Gary Quiñones 11/16/2019 1:27 PM
[2019-11-16] MEDS ORDERED: ROCEPHIN 1 GM in NS 50 ML IV ONE (13:36)
--- NOTE | 2019-11-16 14:28 | Diag Imaging Result Doc PS360 ---
EXAM: CT ABDOMEN/PELVIS W/O CONTRAST 11/16/2019 HISTORY: r/o pyelo- TECHNIQUE: This exam was performed using automated exposure control, adjustment of mA or kV according to patient size, and/or use of iterative reconstruction technique. COMMENT: There are multiple nodular opacities in the lung bases. There has been marked improvement in this regard since 09/18/2019. There is a small right pleural effusion which has decreased in size since 10/22/2018. There is no evidence of nephrolithiasis or hydronephrosis and there is no evidence of perinephric fluid collections. The spleen is enlarged. There is stool throughout much of the colon. This is particularly true of the rectosigmoid. There is no evidence of free fluid. The urinary bladder is unremarkable. There are no masses. There is no evidence of appendicitis. IMPRESSION: Constipation. The possibility of pyelonephritis cannot be entirely excluded on this noncontrast study. Electronically signed by Gary Quiñones 11/16/2019 2:26 PM
[2019-11-16] MEDS ORDERED: MIRALAX PO ONE (15:27)
[2019-11-16] MEDS ORDERED: COLACE PO ONE (15:27)
[2019-11-16] MEDS ORDERED: LACTULOSE PO ONE (15:27)
[2019-11-16] MEDS: DILAUDID IV PRN ×3 (15:53→23:52)
--- NOTE | 2019-11-16 18:59 | HISTORY AND PHYSICAL ---
PRIMARY CARE PROVIDER: La HOUSER. ROUND BONER: Dr. Salmon. CHIEF COMPLAINT: Lower extremity pain. HISTORY OF PRESENT ILLNESS: Ms. Henley is a 24-year-old female, well known to our service with multiple admissions for sickle cell, MSSA bacteremia, and tricuspid endocarditis, who was recently discharged from our service on 11/09/2019, sent home on p.o. Keflex per Infectious Disease. Comes back to the ED today complaining of sickle cell crisis with low back and bilateral leg pain that started last night. Workup in the ED showed a white count of 18, hemoglobin and hematocrit of 9 and 30. Urinalysis showed some leukocytes and WBCs. CT of her abdomen showed constipation, but could not rule out pyelonephritis. She was given a dose of IV Rocephin, IV fluids, IV fentanyl, and IV Dilaudid, as well as Zofran. The patient will be admitted to the medical telemetry floor. After speaking with Infectious Disease, the recommendations were either daptomycin and cefepime or IV Ancef. We will continue to hydrate her overnight as well, consult Dr. Salmon for pain control, and continue with further recommendations and treatment. PAST MEDICAL HISTORY: 1. Recent discharge for MSSA bacteremia and tricuspid valve endocarditis, on Keflex b.i.d. 2. Sickle cell. 3. Microcytic anemia. 4. In September, bilateral cavitary pneumonia associated with septic PE. 5. Polysubstance dependence. 6. Avascular necrosis of the right hip and shoulder. 7. Asthma. 8. Chronic leukocytosis. 9. Constipation. 10. Depression. 11. Chronic hyperbilirubinemia. PAST SURGICAL HISTORY: 1. Right chest port removed. 2. Multiple port insertions and removals. 3. Cholecystectomy. SOCIAL HISTORY: No tobacco or alcohol. Occasional marijuana. History of narcotic dependence. FAMILY HISTORY: Two brothers with sickle cell. Grandfather with sickle cell. Grandmother in both parents positive for the trait. ALLERGIES: Latex, Demerol, vancomycin. MEDICATIONS: Home medications are being compiled. REVIEW OF SYSTEMS: A 12 point review of systems was completed and negative except for those mentioned in HPI. Denies all other symptoms. PHYSICAL EXAMINATION: VITAL SIGNS: Temperature was 99.4 degrees, heart rate 116, respirations 16, blood pressure 115/72, and O2 is 100% on room air. GENERAL: Ms. Henley is a 24-year-old female who is sitting up in the stretcher in the ED in no acute distress. HEENT: Atraumatic, normocephalic. PERRL. NECK: Supple. Trachea midline. CV: S1, S2 appreciated. No JVD. Lower extremity edema. Positive murmur. No gallops or rubs. PULMONARY: Bilateral breath sounds. Clear to auscultation. GI: Soft, nontender, nondistended. Positive bowel sounds 4 quadrants. EXTREMITIES: Patient moves all extremities well. NEUROLOGIC: The patient is awake, alert, moving all extremities. No focal deficits noted. SKIN: Warm, dry, and intact. LABORATORY DATA: White count 18, hemoglobin and hematocrit 9 and 30, platelet count 251,000. Reticulocyte count 23. Sodium 133, potassium 4.2, BUN 9, creatinine 0.5, blood glucose is 96. Two sets of plasma lactates are negative. Urinalysis: 20 to 40 WBCs, large leukocytes, negative for bacteria, negative for nitrites. ASSESSMENT AND PLAN: 1. Sickle cell crisis. Continue with pain regimen. Consult Dr. Salmon. Continue intravenous hydration. 2. Chronic anemia, hemodynamically stable. 3. Questionable pyelonephritis. Will treat her with broad-spectrum antibiotics with daptomycin and cefepime. 4.Constipation continue with bowel regimen. 5. Recent Methicillin sensitive Staphylococcus aureus bacteremia with tricuspid valve endocarditis, recently treated with Nafcillin. Discharged on oral Keflex. Again, we will continue with broad-spectrum antibiotics for now. The patient was discharged only on oral antibiotics secondary to her polysubstance abuse. 6. Polysubstance abuse history 7. Medical noncompliance patient has not been at home for home health visits and has missed follow with ID who will no longer be following the patient in clinic. 8. Further recommendation to follow physician evaluation, laboratory, and diagnostic data. Dictated by CORRINA Shetty for Bharat Hernadez MD cc: Bharat Hernadez MD [facility]
--- NOTE | 2019-11-16 19:58 | HISTORY AND PHYSICAL ---
SUBJECTIVE: The patient came in with abdominal pain, nausea, vomiting. She has a history of sickle cell disease. She came in for evaluation. There was question if she had pyelonephritis, so she has been placed on antibiotics. Her urine does show some leukocytes. She does have some evidence of sickle cell, but her reticulocyte count is not that bad. Her white count is fairly bad, though. We are going to empirically put her on IV antibiotics. Her abdominal exam is benign. Will work on her constipation as well and follow closely. This is a [id number] encounter note with Estela Christian. cc: Bharat Hernadez MD
[2019-11-16] MEDS: MAXIPIME 1 GM in NS 50 ML IV SCH (20:08)
[2019-11-16] MEDS: TYLENOL PO PRN (20:08)
[2019-11-16] MEDS: CUBICIN 500 MG in NS 100 ML IV SCH (20:08)
[2019-11-16] MEDS: HYDREA PO SCH (20:41)
[2019-11-16] MEDS ORDERED: HYDROXYUREA PO SCH (21:00)
[2019-11-16] MEDS ORDERED: LACTULOSE PO SCH (21:00)
[2019-11-16] MEDS: COLACE PO SCH (23:46)
[2019-11-16] MEDS: MIRALAX PO SCH (23:46)
[2019-11-16] MEDS: LACTULOSE PO SCH (23:47)
[2019-11-17] MEDS: DILAUDID IV PRN ×6 (03:57→23:01)
[2019-11-17 05:16] LABS: BASO# 0.04 X1000 (0.0-0.2); BASO% 0.3 % (0.0-0.8); EOS# 0.39 X1000 (0.0-0.7); EOS% 2.4 % (0.0-10.0); HEMATOCRIT 25.2 % (37.0-47.0); HEMOGLOBIN 8.1 g/dL (12.0-16.0); IMM GRAN# 0.05 X1000 (0.0-0.04); IMM GRAN% 0.3 % (0.0-0.5); LYMPH# 2.11 X1000 (1.2-3.4); LYMPH% 13.2 % (20.5-51.1); MCH 25.2 PG (27-31); MCHC 32.1 g/dL (33-37); MCV 78.3 FL (81-99); MONO# 0.69 X1000 (0.11-0.59); MONO% 4.3 % (1.7-9.3); MPV 8.4 FL (7.4-10.4); NEUT# 12.65 X1000 (1.4-6.5); NEUT% 79.5 % (42.2-75.2); PLT 221 X1000 (130-400); RBC 3.22 XMIL (4.2-5.4); RDW 22.5 % (11.5-14.5); WBC 15.93 X1000 (4.8-10.8)
[2019-11-17 05:36] LABS: BANDS 3 % (0-1); EOS 2 % (1-10); LYMPHS 13 % (21-51); MONO 1 % (1-9); SEGS 79 % (42-75)
[2019-11-17 05:37] LABS: ANISOCYTOSIS 3+; HYPOCHROM 2+; SICKLE CELLS OCCASIONAL; TARGET CELLS 1+
[2019-11-17 05:40] LABS: AGAP 11; ALB/GLOB RATIO 0.7; ALBUMIN 3.5 g/dL (3.5-5.0); ALKALINE PHOSPHATASE 92 U/L (32-104); BUN 9 mg/dL (8-22); CALCIUM 8.8 mg/dL (8.8-10.2); CHLORIDE 99 mmol/L (98-107); COSMO 267; CREATININE 0.4 mg/dL (0.5-0.9); ESTIMATED GFR > 60; GLUCOSE 100 mg/dL (70-104); GOT 15 U/L (10-30); GPT 9 U/L (10-36); MAGNESIUM 1.8 mg/dL (1.5-2.7); POTASSIUM 3.9 mmol/L (3.5-5.1); SODIUM 134 mmol/L (136-145); TCO2 24 mmol/L (25-35); TOTAL BILIRUBIN 1.44 mg/dL (0.20-1.00); TOTAL PROTEIN 8.6 g/dL (6.3-8.3)
[2019-11-17] MEDS: ZOFRAN IV PRN ×3 (08:17→16:25)
[2019-11-17] MEDS: MAXIPIME 1 GM in NS 50 ML IV SCH ×2 (08:18→19:45)
[2019-11-17] MEDS: COLACE PO SCH ×3 (08:18→20:21)
[2019-11-17] MEDS: LACTULOSE PO SCH ×2 (10:08→20:21)
[2019-11-17] MEDS: MIRALAX PO SCH ×2 (10:08→20:22)
--- NOTE | 2019-11-17 17:59 | PROGRESS NOTE ---
DATE: 11/17/2019 SUBJECTIVE: Patient has no major complaints. OBJECTIVE: Vital Signs: Blood pressure is 104/64, heart rate 96, respiratory rate 18, temperature 98.5 degrees, 100% O2 saturation. Cardiovascular: Regular rate and rhythm. Pulmonary: Bilateral breath sounds clear to auscultation. Gastrointestinal: Soft, nontender, nondistended. Bowel sounds are positive. LABORATORY DATA: White count 15, hemoglobin and hematocrit 8 and 25, platelets 221,000. Basic was normal. PROBLEM LIST: 1. Possible pyelonephritis. Cultures are negative. Waiting on repeat cultures, so far nothing is back. 2. Sickle cell crisis. Continue pain medication and hydration. 3. Anemia is stable. Continue to follow. We will have a very relatively high threshold to transfuse her if necessary because of her concern over iron overload due to her sickle cell disease. cc: Bharat Hernadez MD
--- NOTE | 2019-11-17 18:45 | HEMO/ONC CONSULTATION ---
DATE: 11/17/2019 ADMITTING PHYSICIAN: Is Dr. Hernadez. Requesting physician is the same .we appreciate this consult. CHIEF COMPLAINT: Sickle cell crisis. HISTORY OF PRESENT ILLNESS: Ms. Loyda Henley is a pleasant 24-year-old female well known to Dr. Salmon with a history of sickle cell disease and frequent crises. The patient has recently been followed at [facility] and was a potential transplant candidate. However, the patient has not undergone transplant at this time. The patient has been hospitalized recently secondary to MSSA bacteremia and tricuspid valve endocarditis. She was followed by Dr. Castellanos of Infectious Disease. The patient has been on nafcillin per IV as an outpatient, however, was noncompliant and not at home when nafcillin was brought to her home for administration. The patient is currently on p.o. antibiotics. She reports that the day of admission the patient began to have low back and bilateral leg pain. White blood cell count in the emergency department was 18 with a hemoglobin of 9.0. CT of the abdomen was obtained secondary to complaints of abdominal pain, which revealed constipation and pyelonephritis could not be ruled out. The patient is admitted for sickle cell crisis with possible pyelonephritis. PAST MEDICAL HISTORY: 1. Sickle cell disease with persistent anemia and crises. 2. MSSA bacteremia. 3. Tricuspid valve endocarditis. 4. Recent bilateral cavitary pneumonia with septic PE. 5. Polysubstance dependence. 6. Avascular necrosis of the right hip and shoulder. 7. Asthma. 8. Chronic leukocytosis. 9. Depression. PAST SURGICAL HISTORY: 1. Multiple port insertions and removals. 2. Cholecystectomy. SOCIAL HISTORY: The patient does not use tobacco or alcohol. She smokes marijuana occasionally and is dependent on prescribed narcotics. FAMILY HISTORY: Significant for grandfather with sickle cell disease, who is from a stroke as well as 2 brothers with sickle cell disease. Grandmother and both parents are positive for the trait. MEDICATIONS ON ADMISSION: Hydrea. ALLERGIES: Latex, Demerol, and vancomycin. REVIEW OF SYSTEMS: A 14 point review of systems was obtained and is negative except for mentioned in HPI. PHYSICAL EXAMINATION: Ms. Henley is a pleasant 24-year-old female lying supine in bed in no immediate distress.Vital Signs: Temperature 98.9 degrees, blood pressure 99/50, heart rate 104, respirations 18, O2 saturation 99% on room air. HEENT: Normocephalic, atraumatic. Mucous membranes pale and moist. Sclerae is anicteric at this time. Extraocular movements intact. Neck: Supple. Lungs: Clear to auscultation bilaterally. Chest expansion is equal bilaterally. CV: S1, S2 is heard without murmur, rub or gallop. Abdomen: Nondistended. Extremities: No clubbing, cyanosis, or edema. Dermatologic: No rashes bruises or lesions. Neurologic: The patient is awake, alert, and oriented x3. He has no focal deficit. Gait is normal. LABORATORY DATA: Hemoglobin 8.1, hematocrit 25.2, white blood cell count is 15.93, platelets 221,000. Sodium 134, potassium 3.9, chloride 99, CO2 is 24, BUN 9, creatinine 0.4, and glucose is 100. Bilirubin 1.44, alkaline phosphatase 92, AST 15, ALT 9. Reticulocyte count is 3.34. Urinalysis is positive for UTI. IMAGING STUDIES: CT of the abdomen and pelvis reveals constipation and questionable pyelonephritis. Chest x-ray reveals stable nodular cavitary opacities bilaterally with known septic emboli. ASSESSMENT AND PLAN: 1. Sickle cell crisis. Would continue current pain regimen at this time. 2. Anemia of sickle cell disease, stable at this time. Hemoglobin is currently 8.1. We would limit transfusions secondary to iron overload and pain with transfusions. 3. Questionable pyelonephritis. The patient is currently on a broad-spectrum antibiotic. 4. 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 The patient is currently on antibiotics. 5. Polysubstance abuse, known. 6. Medical noncompliance with home IV antibiotics. She is currently on p.o. antibiotics and reports compliance. 7. We will follow along with you and make further recommendations pending outcomes given. This is Sheree Arellano nurse practitioner dictating a consult on [facility] for Dr. Salmon. The above reflects the history, exam, assessment and plan of Dr. Salmon. Dictated by CORRINA Ramirez for Rigo Salmon MD cc: CORRINA Ramirez MD
[2019-11-17] MEDS: TYLENOL PO PRN (18:58)
[2019-11-17] MEDS: HYDREA PO SCH ×2 (19:49→20:21)
[2019-11-17] MEDS: CUBICIN 500 MG in NS 100 ML IV SCH (20:54)
[2019-11-18] MEDS: DILAUDID IV PRN ×7 (02:10→23:58)
[2019-11-18] MEDS: LOVENOX SUBQ SCH (05:05)
[2019-11-18 05:58] LABS: BASO# 0.03 X1000 (0.0-0.2); BASO% 0.2 % (0.0-0.8); EOS# 0.37 X1000 (0.0-0.7); EOS% 2.8 % (0.0-10.0); HEMATOCRIT 24.5 % (37.0-47.0); HEMOGLOBIN 8.1 g/dL (12.0-16.0); IMM GRAN# 0.04 X1000 (0.0-0.04); IMM GRAN% 0.3 % (0.0-0.5); LYMPH# 2.29 X1000 (1.2-3.4); LYMPH% 17.3 % (20.5-51.1); MCH 25.5 PG (27-31); MCHC 33.1 g/dL (33-37); MONO# 0.63 X1000 (0.11-0.59); MONO% 4.8 % (1.7-9.3); NEUT# 9.86 X1000 (1.4-6.5); NEUT% 74.6 % (42.2-75.2); PLT 205 X1000 (130-400); RBC 3.18 XMIL (4.2-5.4); RDW 22.6 % (11.5-14.5); WBC 13.22 X1000 (4.8-10.8)
[2019-11-18 06:27] LABS: AGAP 14; BUN 9 mg/dL (8-22); CALCIUM 9.3 mg/dL (8.8-10.2); CHLORIDE 95 mmol/L (98-107); COSMO 263; CREATININE 0.4 mg/dL (0.5-0.9); ESTIMATED GFR > 60; GLUCOSE 98 mg/dL (70-104); POTASSIUM 3.9 mmol/L (3.5-5.1); SODIUM 132 mmol/L (136-145); TCO2 23 mmol/L (25-35)
[2019-11-18] MEDS: MAXIPIME 1 GM in NS 50 ML IV SCH ×2 (08:17→21:41)
[2019-11-18] MEDS: ZOFRAN IV PRN (08:17)
[2019-11-18] MEDS: COLACE PO SCH ×2 (08:17→20:35)
[2019-11-18] MEDS: LACTULOSE PO SCH ×2 (08:57→20:35)
[2019-11-18] MEDS: MIRALAX PO SCH ×2 (08:57→20:33)
[2019-11-18] MEDS ORDERED: BENADRYL PO PRN (17:22)
--- NOTE | 2019-11-18 18:06 | PROGRESS NOTE ---
DATE: 11/18/2019 SUBJECTIVE: Pain is about the same. No major issues. OBJECTIVE: Blood pressure is 99/56, heart rate of 106, respiratory rate of 16, temperature 98.4 degrees.Cardiovascular: Regular rate and rhythm. Pulmonary: Bilateral breath sounds, clear to auscultation. GI: Soft, nontender, nondistended. Bowel sounds were positive. LABORATORY DATA: White count 13, hemoglobin and hematocrit are 8 and 24, which is pretty stable. Platelets 205,000. Sodium 132. ASSESSMENT AND PLAN: 1. Sickle cell crisis. She seems to be doing okay. Pain is adequately controlled. 2. Possible pyelonephritis. All cultures are negative. Waiting on repeat cultures; so far nothing is back. 3. Anemia, stable. We are not pursuing anything from that standpoint. I think if things are stable tomorrow, I anticipate discharge. cc: Bharat Hernadez MD
[2019-11-18] MEDS: CUBICIN 500 MG in NS 100 ML IV SCH (20:30)
[2019-11-18] MEDS: HYDREA PO SCH (20:35)
[2019-11-19] MEDS: DILAUDID IV PRN ×5 (03:04→16:07)
[2019-11-19 05:45] LABS: BASO# 0.04 X1000 (0.0-0.2); BASO% 0.3 % (0.0-0.8); EOS# 0.29 X1000 (0.0-0.7); EOS% 2.3 % (0.0-10.0); HEMATOCRIT 25.3 % (37.0-47.0); HEMOGLOBIN 8.3 g/dL (12.0-16.0); IMM GRAN# 0.02 X1000 (0.0-0.04); IMM GRAN% 0.2 % (0.0-0.5); LYMPH# 2.42 X1000 (1.2-3.4); LYMPH% 19.2 % (20.5-51.1); MCH 25.2 PG (27-31); MCHC 32.8 g/dL (33-37); MCV 76.7 FL (81-99); MONO% 5.5 % (1.7-9.3); MPV 8.9 FL (7.4-10.4); NEUT# 9.15 X1000 (1.4-6.5); NEUT% 72.5 % (42.2-75.2); PLT 210 X1000 (130-400); RDW 23.2 % (11.5-14.5); RETIC% 3.56 % (0.8-2.1); RETIC-HE 22.8 PG (28.2-36.6); WBC 12.62 X1000 (4.8-10.8)
[2019-11-19] MEDS: LOVENOX SUBQ SCH (06:13)
[2019-11-19] MEDS: COLACE PO SCH (09:44)
[2019-11-19] MEDS: MAXIPIME 1 GM in NS 50 ML IV SCH (09:46)
[2019-11-19] MEDS: MIRALAX PO SCH (10:20)
[2019-11-19] MEDS: LACTULOSE PO SCH (10:20)
[2019-11-19 12:12] VITALS: BP 93/52
--- NOTE | 2019-11-20 13:44 | DISCHARGE SUMMARY ---
ADMISSION DATE: 11/16/2019 DISCHARGE DATE: 11/19/2019 SUBJECTIVE: Patient has no major complaints. DISCHARGE DIAGNOSIS: Sickle cell crisis. The patient came in with nausea, vomiting, possible pyelo per CT. Her urine was a bit abnormal with 20 to 40 white blood cells but her culture never grew out anything. She was admitted, placed on broad spectrum antibiotics but cultures again did not grow out anything so she was discharged on the in stable condition. Her hemoglobin and hematocrit was stable 8 and 25 really did not have a big drop. Her reticulocyte count stayed around 3.5. Her white count 12,000, pretty much had unchanged for 3 days so she was felt stable for discharge, given hydroxyurea 1.5 at bedtime, MiraLAX 17 daily and [place]. DISCHARGE CONDITION: Stable. FOLLOWUP: With Dr. Salmon. cc: Rigo Salmon MD
== END 2019-11-19 18:33 | disposition home or self-care (01) | DRG 811 ==
LOC: EDIPHOLD 09:38 → ED 09:38 → OBSVTOIN 15:06 → 1N 19:15
PROVIDERS: ATTEND Internal Medicine

== ENCOUNTER 2019-12-06 11:06 | Inpatient (IN) ==
[2019-12-06 11:58] LABS: BASO# 0.03 X1000 (0.0-0.2); BASO% 0.2 % (0.0-0.8); EOS% 2.3 % (0.0-10.0); HEMATOCRIT 31.3 % (37.0-47.0); HEMOGLOBIN 10.3 g/dL (12.0-16.0); IMM GRAN# 0.04 X1000 (0.0-0.04); IMM GRAN% 0.3 % (0.0-0.5); LYMPH# 1.43 X1000 (1.2-3.4); LYMPH% 11.1 % (20.5-51.1); MCH 27.1 PG (27-31); MCHC 32.9 g/dL (33-37); MCV 82.4 FL (81-99); MONO# 0.39 X1000 (0.11-0.59); MPV 8.3 FL (7.4-10.4); NEUT# 10.67 X1000 (1.4-6.5); NEUT% 83.1 % (42.2-75.2); PLT 291 X1000 (130-400); RDW 21.4 % (11.5-14.5); RETIC% 5.23 % (0.8-2.1); RETIC-HE 23.8 PG (28.2-36.6); WBC 12.86 X1000 (4.8-10.8)
[2019-12-06 12:04] LABS: URINE SOURCE CLEAN CATCH
[2019-12-06 12:11] LABS: BILIRUBIN URINE NEGATIVE (NEGATIVE); BLOOD URINE TRACE (NEGATIVE); COLOR YELLOW; GLUCOSE URINE NEGATIVE (NEGATIVE); KETONE URINE NEGATIVE (NEGATIVE); LEUKOCYTES URINE NEGATIVE (NEGATIVE); NITRITE URINE NEGATIVE (NEGATIVE); PROTEIN URINE TRACE mg/dL (NEGATIVE); SP GRAVITY URINE 1.014; TURBIDITY URINE CLEAR (CLEAR); UROBILINOGEN URINE 2 mg/dL (NORMAL)
[2019-12-06 12:13] LABS: UR EPITHELIAL CELLS >10 /HPF (<10); URINE BACTERIA NEGATIVE /HPF; URINE RBC <10 /HPF (<10); URINE WBC <10 /HPF (<10)
[2019-12-06 12:19] LABS: INR 1.18; PROTIME 15.2 Seconds (11.0-16.0)
[2019-12-06 12:21] LABS: AGAP 11; ALB/GLOB RATIO 0.6; ALBUMIN 3.7 g/dL (3.5-5.0); ALKALINE PHOSPHATASE 129 U/L (32-104); BUN 10 mg/dL (8-22); CALCIUM 9.4 mg/dL (8.8-10.2); CHLORIDE 101 mmol/L (98-107); COSMO 267; CREATININE 0.5 mg/dL (0.5-0.9); ESTIMATED GFR > 60; GLUCOSE 94 mg/dL (70-104); GOT 32 U/L (10-30); GPT 26 U/L (10-36); POTASSIUM 4.2 mmol/L (3.5-5.1); SODIUM 134 mmol/L (136-145); TCO2 22 mmol/L (25-35); TOTAL BILIRUBIN 1.47 mg/dL (0.20-1.00); TOTAL PROTEIN 9.4 g/dL (6.3-8.3)
[2019-12-06 12:24] LABS: UR AMPHETAMINES QUAL NONE DETECTED (NONE DETECT); UR BARBITUATES QUAL NONE DETECTED (NONE DETECT); UR BENZODIAZEPIN QUAL NONE DETECTED (NONE DETECT); UR CANNABINOIDS QUAL PRESUMPTIVE POSITIVE (NONE DETECT); UR COCAINE QUAL NONE DETECTED (NONE DETECT); UR METHADONE QUAL NONE DETECTED (NONE DETECT); UR OPIATES QUAL NONE DETECTED (NONE DETECT); UR OXYCODONE QUAL NONE DETECTED (NONE DETECT); UR PCP QUAL NONE DETECTED (NONE DETECT)
[2019-12-06] MEDS ORDERED: TYLENOL PO ONE (12:26)
--- NOTE | 2019-12-06 13:27 | PROVIDER DOCUMENTATION ---
This chart was entered by Pam Benson Scribe, acting as scribe for Dianne Guardado CRNP. HPI-Respiratory General - General Stated Complaint: FEVER CHEST PAIN BACK PAIN Time Seen by Provider: 12/06/19 11:19 Source: patient Allergies/Adverse Reactions: Patient Allergies Allergy/AdvReac Type Severity Reaction Status Date / Time meperidine HCl * Allergy Severe SHORTNESS Verified 11/28/19 09:59 [From Demerol] OF BREATH; AND HEADACHE vancomycin Allergy Severe RASH Verified 11/28/19 09:59 latex Allergy Mild RASH Verified 11/28/19 09:59 Home Medications: Home Medication List Medication Instructions Recorded Confirmed Last Taken Type Hydroxyurea [Siklos] 1.5 tab PO QHS 11/16/19 11/28/19 11/15/19 21:00 History Citalopram Hydrobromide [Celexa] 10 mg PO DAILY 11/28/19 11/28/19 Unknown History Hydromorphone HCl 1 tab PO DIRECTED 11/28/19 11/28/19 Unknown History - History of Present Illness-Resp Nature of Presenting Problem: 24 y/o female with history of sickle cell anemia and asthma presents to the ED with complaint of chest pain under her breasts radiating into the back, SOB, mild headache, and fever times one day. The patient states pain is sharp pressure severe pain. Denies n/v/d. No home treatment prior to arrival. Quality of Pain: reports: pressure, sharp Onset/Duration: reports: 24 hours ago Timing: reports: still present Cough Quality/Degree: reports: no cough Current Respiratory Medication Therapy: Initiated see nurses note Associated Symptoms: reports: fever/chills, shortness of breath. denies: cough Recently seen or treated by another doctor?: No Review of Systems - Adult - REVIEW OF SYSTEMS - ADULT Constitutional: reports: fever. denies: weight gain, weight loss Eyes: reports: no symptoms reported Ears, Nose, Mouth & Throat: reports: no symptoms reported Cardiovascular: reports: chest pain. denies: palpitations, syncope Respiratory: reports: shortness of breath. denies: cough, hemoptysis Gastrointestinal: denies: diarrhea, nausea, vomiting Genitourinary: reports: no symptoms reported Musculoskeletal: reports: no symptoms reported Integumentary: reports: no symptoms reported Neurological: reports: headache/migraines (mild). denies: dizziness/vertigo, syncope Psychiatric: reports: no symptoms reported Endocrine: reports: no symptoms reported Hematologic/Lymphatic: reports: no symptoms reported Allergic/Immunologic: reports: no symptoms reported All Other Systems: Reviewed and Negative Past History - Adult - PAST MEDICAL HISTORY-ADULT Review of Records: reports: Old Records Reviewed, Nursing Assessment Review, Medications Reviewed Major Childhood Illnesses: reports: denies history, other (Sickle Cell) Cardiovascular: reports: denies history Respiratory: reports: asthma Gastrointestinal: reports: cholelithiasis Obstetrical/Gynecological: reports: denies history Genitourinary: reports: denies history Musculoskeletal: reports: chronic pain (sickle cell) Neurological: reports: Seizures/Epilepsy Psychiatric: reports: depression Endocrine/Immune: reports: Sickle Cell disease Sickle Cell Genotype:: SS Other Conditions: reports: denies history - PRIOR SURGERIES/PROCEDURES Surgical/Procedure History: reports: reviewed, not pertinent, cholecystectomy, indwelling device - IMMUNIZATION STATUS Childhood Immunizations: See Nurse Assessment Flu Vaccine: See Nurse Assessment - FAMILY HISTORY Family History: sickle cell disease/trait, HTN - SOCIAL HISTORY Smoking: non-smoker Substance Use: denies Living Situation: family Physical Exam-General - PHYSICAL EXAM-ADULT Initial Vital Signs Reviewed: Yes - CONSTITUTIONAL General Appearance: alert, other (crying) - EYES Eyes: PERRL/EOMI, pink conjunctivae - HEAD, EARS, NOSE, MOUTH & THROAT HENMT: normocephalic/atraumatic, moist mucous membranes - NECK Neck: full range of motion, supple - RESPIRATORY Respiratory: lungs clear, normal breath sounds, no respiratory distress, no accessory muscle use. negative: rales, rhonchi, wheezing - CARDIOVASCULAR Cardiovascular: regular rate, rhythm, no gallop - GASTROINTESTINAL (ABDOMEN) Abdominal Exam: normal bowel sounds, non tender, soft. negative: distended, guarding, rebound - MUSCULOSKELETAL Extremity: non-tender, normal gait Peripheral Pulses: radial (R): 2+, radial (L): 2+, dorsalis-pedis (R): 2+, dorsalis-pedis (L): 2+ - SKIN Integumentary: normal color, normal turgor, warm/dry - NEUROLOGIC Neurologic: grossly normal - PSYCHIATRIC Psych/Mental Status: normal mood/affect, oriented x 3 - HEART Score HEART Score: Age: < or = 45 Years HEART Score: Risk Factors for Atherosclerotic Disease: No Risk Factors Known HEART Score: Troponin: < or = Normal Limit Progress - PLAN OF CARE/RESULTS Progress/Plan/Lab Results: Vital Signs - 8 hr 12/06/19 11:40 12/06/19 12:49 Temperature 103.1 F H Pulse Rate 120 H 112 H Respiratory Rate 14 19 Blood Pressure 116/78 115/71 O2 Sat by Pulse Oximetry 98 99 Bedside Urine ED: Urine Bedside Start: 12/06/19 11:11 Freq: ORDERED Status: Active Protocol: Activity Type Activity Date Activity User E-Sign Co-Sign Detail Recorded Client Recorded Date Recorded By Document 12/06/19 11:57 [id number] 12/06/19 11:57 [id number] 12/06/19 11:57 Point of Care [Bedside Point of Care] -Lot # [id number] - Results Negative -Control Line Visible? Yes 12/06/19 12:32 Influenza Screen - Final Nasopharyngeal 12/06/19 12:32 Group A Strep Rapid Antigen - Final Throat Laboratory Results - last 24 hr 12/06/19 12/06/19 12/06/19 11:37 11:37 11:37 WBC 12.86 H RBC 3.80 L Hgb 10.3 L Hct 31.3 L MCV 82.4 MCH 27.1 MCHC 32.9 L RDW Std Deviation 21.4 H Plt Count 291 MPV 8.3 Immature Gran % (Auto) 0.3 Neut % (Auto) 83.1 H Lymph % (Auto) 11.1 L [place] % (Auto) 3.0 Eos % (Auto) 2.3 Baso % (Auto) 0.2 Immature Gran # (Auto) 0.04 Neut # (Auto) 10.67 H Lymph # (Auto) 1.43 [place] # (Auto) 0.39 Eos # (Auto) 0.30 Baso # (Auto) 0.03 Percent Retic 5.23 H Retic Hgb Equivalent 23.8 L PT INR PTT (Actin FS) Sodium 134 L Potassium 4.2 Chloride 101 Carbon Dioxide 22 L Anion Gap 11 BUN 10 Creatinine 0.5 Estimated GFR/1.73 m2 > 60 BUN/Creatinine Ratio 20 Glucose 94 Calculated Osmolality 267 Calcium 9.4 Total Bilirubin 1.47 H AST 32 H ALT 26 Alkaline Phosphatase 129 H Creatine Kinase Troponin T High Sens Total Protein 9.4 H Albumin 3.7 Globulin 5.7 Albumin/Globulin Ratio 0.6 Plasma Lactate 1.4 Urine Source Urine Color Urine Turbidity Urine pH Ur Specific [place] Urine Protein Ur Glucose (Stick) Ur Ketones (Stick) Urine Blood Urine Nitrite Urine Bilirubin Urobilinogen Dipstick Urine Leukocytes Urine WBC (Auto) Urine RBC (Auto) U Epithel Cells (Auto) Urine Bacteria (Auto) Urine Opiates Screen Ur Oxycodone Screen Ur Methadone, Qual Ur Barbiturates Screen Ur Phencyclidine Scrn Ur Amphetamines Screen U Benzodiazepines Scrn Urine Cocaine Screen U Cannabinoids Screen 12/06/19 12/06/19 12/06/19 11:37 11:37 11:37 WBC RBC Hgb Hct MCV MCH MCHC RDW Std Deviation Plt Count MPV Immature Gran % (Auto) Neut % (Auto) Lymph % (Auto) [place] % (Auto) Eos % (Auto) Baso % (Auto) Immature Gran # (Auto) Neut # (Auto) Lymph # (Auto) [place] # (Auto) Eos # (Auto) Baso # (Auto) Percent Retic Retic Hgb Equivalent PT 15.2 INR 1.18 PTT (Actin FS) 38.0 Sodium Potassium Chloride Carbon Dioxide Anion Gap BUN Creatinine Estimated GFR/1.73 m2 BUN/Creatinine Ratio Glucose Calculated Osmolality Calcium Total Bilirubin AST ALT Alkaline Phosphatase Creatine Kinase 21 L Troponin T High Sens < 6 Total Protein Albumin Globulin Albumin/Globulin Ratio Plasma Lactate Urine Source Urine Color Urine Turbidity Urine pH Ur Specific [place] Urine Protein Ur Glucose (Stick) Ur Ketones (Stick) Urine Blood Urine Nitrite Urine Bilirubin Urobilinogen Dipstick Urine Leukocytes Urine WBC (Auto) Urine RBC (Auto) U Epithel Cells (Auto) Urine Bacteria (Auto) Urine Opiates Screen Ur Oxycodone Screen Ur Methadone, Qual Ur Barbiturates Screen Ur Phencyclidine Scrn Ur Amphetamines Screen U Benzodiazepines Scrn Urine Cocaine Screen U Cannabinoids Screen 12/06/19 12/06/19 11:57 11:57 WBC RBC Hgb Hct MCV MCH MCHC RDW Std Deviation Plt Count MPV Immature Gran % (Auto) Neut % (Auto) Lymph % (Auto) [place] % (Auto) Eos % (Auto) Baso % (Auto) Immature Gran # (Auto) Neut # (Auto) Lymph # (Auto) [place] # (Auto) Eos # (Auto) Baso # (Auto) Percent Retic Retic Hgb Equivalent PT INR PTT (Actin FS) Sodium Potassium Chloride Carbon Dioxide Anion Gap BUN Creatinine Estimated GFR/1.73 m2 BUN/Creatinine Ratio Glucose Calculated Osmolality Calcium Total Bilirubin AST ALT Alkaline Phosphatase Creatine Kinase Troponin T High Sens Total Protein Albumin Globulin Albumin/Globulin Ratio Plasma Lactate Urine Source CLEAN CATCH Urine Color YELLOW Urine Turbidity CLEAR Urine pH 7.0 Ur Specific [place] 1.014 Urine Protein TRACE A Ur Glucose (Stick) NEGATIVE Ur Ketones (Stick) NEGATIVE Urine Blood TRACE A Urine Nitrite NEGATIVE Urine Bilirubin NEGATIVE Urobilinogen Dipstick 2 A Urine Leukocytes NEGATIVE Urine WBC (Auto) <10 Urine RBC (Auto) <10 U Epithel Cells (Auto) >10 A Urine Bacteria (Auto) NEGATIVE Urine Opiates Screen NONE DETECTED Ur Oxycodone Screen NONE DETECTED Ur Methadone, Qual NONE DETECTED Ur Barbiturates Screen NONE DETECTED Ur Phencyclidine Scrn NONE DETECTED Ur Amphetamines Screen NONE DETECTED U Benzodiazepines Scrn NONE DETECTED Urine Cocaine Screen NONE DETECTED U Cannabinoids Screen PRESUMPTIVE POSITIVE A Orders Category Date Time Status Cardiac Monitoring NOW Care 12/06/19 12:03 Active ED: Urine Bedside ORDERED Care 12/06/19 11:11 Active NEWS Score >or=5:Order NEWS Bundle S.O. NOW Care 12/06/19 11:44 Active Notify Provider of NEWS Score NOW Care 12/06/19 12:03 Active Saline Loc NOW Care 12/06/19 11:12 Active CHEST-1 VIEW [RAD] Stat Exams 12/06/19 11:11 Ordered BLOOD CULTURE [BLDCUL] Stat Lab 12/06/19 12:03 Uncollected CBC WITH ELECTRONIC DIFF [HEME] Stat Lab 12/06/19 11:37 Completed CK PROFILE [SP CHEM] Stat Lab 12/06/19 11:37 Completed COMPREHENSIVE METABOLIC PANEL [CHEM] Stat Lab 12/06/19 11:37 Completed INFLUENZA SCREEN A/B Stat Lab 12/06/19 12:32 Completed LACTATE, PLASMA [CHEM] Q3H Lab 12/06/19 11:37 Completed LACTATE, PLASMA [CHEM] Q3H Lab 12/06/19 15:15 Uncollected LACTATE, PLASMA [CHEM] Q3H Lab 12/06/19 18:15 Uncollected PROTIME WITH INR [COAG] Stat Lab 12/06/19 11:37 Completed PTT [COAG] Stat Lab 12/06/19 11:37 Completed RETIC COUNT [HEME] Stat Lab 12/06/19 11:37 Completed Strep [DIRECT STREP] Stat Lab 12/06/19 12:32 Completed TROPONIN T HIGH SENSITIVITY Stat Lab 12/06/19 11:37 Completed TYPE & SCREEN [BBK] Stat Lab 12/06/19 11:37 Received UA Reflex [URINALYSIS W/POSS RFLX CULT] [URINALYSIS] Lab 12/06/19 12:22 Ordered Stat URINALYSIS W/POSS RFLX CULT [URINALYSIS] Stat Lab 12/06/19 11:57 Completed URINE DRUG SCREEN Stat Lab 12/06/19 11:57 Completed Acetaminophen [Tylenol] Med 12/06/19 12:26 Discontinued 650 mg PO NOW ONE O2 Per Protocol Stat Oth 12/06/19 12:03 Completed 1306: Flu and Strep negative. Result Diagrams: 12/06/19 11:37 12/06/19 11:37 - REASSESSMENT Reassessment #1 Time Reassessed: 12:45 Status: unchanged Reassessment #2 Time Reassessed: 13:20 Status: unchanged (will admit to hospital and to COVID 19 testing) - CONSULTS/PCP/HOSPITALIST Notification #1 *Consult/PCP/Hospitalist*: CORRINA Carlisle Hospitalist for Dr. Lindquist Time Discussed: 13:14 Consult Disposition: Will see in ED Departure - Departure Date of Disposition Decision: 12/06/19 Time of Disposition Decision: 13:19 DIAGNOSIS: Fever of unknown origin, Sickle cell crisis Disposition: ADMITTED INPATIENT 09 Certified Medical Emergency: Emergent Condition: Fair Referrals and Follow-Ups: None,PCP [Primary Care Provider] - - Critical Care Note This patient required my direct & personal management of CC.: No Attestation - Physician/ EDNA Attestation Patient care was provided by Advanced Practice Provider:: Yes Advanced Practice Provider:: Dianne Guardado Advanced Practice Provider documentation review:: The Mid-level provider documentation, treatment plan and medical decision making was reviewed by the physician who agrees with all treatment and medical decision making by the MLP. The physician spent face to face time with patient:: No Advanced Practice Provider documentation review:: Supervising physician onsite and consulted in the evaluation and care of this patient. The physician did not have a face to face encounter with the patient. This chart was documented by the indicated scribe, (Pam Benson, Vamsi) and accurately reflects the services I performed and decisions made by me, Dianne Guardado CRNP, as attested by the provider's signature.
[2019-12-06] MEDS ORDERED: ZOSYN 3.375 GM in NS 50 ML IV SCH (13:30)
[2019-12-06] MEDS ORDERED: NS 1,000 ML IV ONE (13:45)
[2019-12-06] MEDS ORDERED: ZOFRAN IV PRN (13:47)
--- NOTE | 2019-12-06 13:52 | Diag Imaging Result Doc PS360 ---
CHEST-1 VIEW - 12/06/2019 INDICATION: short of breath COMPARISON: 11/16/2019 FINDINGS: There are some small heterogeneous infiltrates bilaterally, similar to prior. No new infiltrates. Stable cardiomegaly and pulmonary vascular congestion. IMPRESSION: No change from prior. Cardiomegaly and pulmonary vascular congestion. Faint infiltrates which may suggest pulmonary edema or pneumonia. Electronically signed by Errol Curiel 12/06/2019 1:49 PM
[2019-12-06] MEDS ORDERED: VANCOMYCIN IV PER PHARMACY MISC SCH ×2 (14:00→15:30)
[2019-12-06] MEDS ORDERED: ZOSYN 4.5 GM in NS 100 ML IV ONE (14:03)
--- NOTE | 2019-12-06 14:16 | ED EKG INTERP ---
EKG Interpretation - EKG Time of EKG reading by physician:: 14:15 EKG Read and Signed by:: Jay Prado EKG Interpretation (*Must complete 3 of following elements*): Abnormal Rate: 111 Rhythm: nsr [place]: normal QRS: other (high voltage) [place] Interval: normal ST Wave: non-specific ST changes Attestation - Physician/ EDNA Attestation Patient care was provided by Advanced Practice Provider:: Yes Advanced Practice Provider:: Dianne Guardado Advanced Practice Provider documentation review:: The Mid-level provider documentation, treatment plan and medical decision making was reviewed by the physician who agrees with all treatment and medical decision making by the MLP. The physician spent face to face time with patient:: No Advanced Practice Provider documentation review:: Supervising physician onsite and consulted in the evaluation and care of this patient. The physician did not have a face to face encounter with the patient.
[2019-12-06] MEDS: ZYVOX 600 MG/D5W 600 MG/300 ML IVPB IV SCH (16:00)
[2019-12-06] MEDS: DILAUDID IV PRN ×3 (16:02→21:42)
--- NOTE | 2019-12-06 16:08 | HISTORY AND PHYSICAL ---
CHIEF COMPLAINT: "I am having a sickle cell crisis with chest pain under the right breast radiating to the back, shortness of breath and a fever daily." HISTORY OF PRESENT ILLNESS: This is a 24-year-old female, well known to our service for multiple admissions, who has a history of sickle cell disease. She presents to the emergency room complaining of chest pain that is under her breast and radiates through to her back. She has some shortness of breath, headache and fever that happens once a day. She denied any nausea, vomiting, or diarrhea. PAST MEDICAL HISTORY: 1. Sickle cell disease. 2. MSSA bacteremia and tricuspid valve endocarditis. 3. Microcytic anemia. 4. History of cavitary pneumonia associated with septic PE in September 2019. 5. Polysubstance dependence. 6. Avascular necrosis of the right hip and shoulder. 7. Asthma. 8. Chronic leukocytosis. 9. Constipation. 10. Depression. PAST SURGICAL HISTORY: 1. Right chest port removed with multiple port insertions and removals. 2. Cholecystectomy. SOCIAL HISTORY: She denies any alcohol or tobacco. She uses marijuana daily. She has a history of narcotic dependence. FAMILY HISTORY: She has two brothers and a grandfather that have sickle cell and a grandmother and both parents have the trait. ALLERGIES: Latex, Demerol, and vancomycin. REVIEW OF SYSTEMS: Discussed with patient with pertinent positives stated in the HPI. She denied any syncope or dizziness, any productive cough, nausea, vomiting, diarrhea, constipation, black or bloody vomitus or stools, any hematuria, dysuria, frequency, or urgency. PHYSICAL EXAMINATION: GENERAL: This is a 24-year-old female who is sitting up in the bed in no distress. VITAL SIGNS: Blood pressure is 115/71 with a heart rate of 110, respirations are 16, temperature is 103 degrees oral with room air saturations 98% to 99%. EYES: Pupils are equal, round, react to light. EOMs are intact sclerae anicteric. HENT: Head is normocephalic, atraumatic. Mucous membranes are moist. NECK: Supple with trachea midline. CARDIOVASCULAR: Regular rate and rhythm. S1 and S2 appreciated. She denies any calf tenderness. Peripheral pulses are palpable x4. PULMONARY: Breath sounds are clear. No increased work of breathing noted. Chest rises and falls symmetric with respiration. GASTROINTESTINAL: Abdomen is soft, nontender, nondistended. Bowel sounds in all four quadrants. SKIN: Warm and dry. NEUROLOGIC: She is alert and oriented. LABS: WBC is 12.8 with hemoglobin 10.3, hematocrit 31.3, and platelets of 291,000. Sodium 134, potassium 4.2, BUN 10, creatinine 0.5 with a glucose of 94. Urine drug screen is presumptive positive for cannabinoids. ASSESSMENT AND PLAN: 1. Sepsis per elevated WBC, tachycardia and fever. No source of infection identified at this time. Blood cultures and urine cultures pending, Start broad spectrum antibiotics and monitor cultures as well as her symptoms. 2. Sickle cell disease. IVF, pain medications 3. Hypotension. Monitor vital signs. Pressors as indicated. 4. Cannabinoid use. Discussed cessation of illicit drugs with her, she states she has no intention of stopping use. 5. Asthma- aware 6. History of cavitary pneumonia associated with septic pulmonary embolism in September 2019, already treated. 7. 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 Dictated by CORRINA Molina for Eros Redmond MD cc: CORRINA Molina MD [facility]
--- NOTE | 2019-12-06 16:10 | HISTORY AND PHYSICAL ---
ADDENDUM: The patient was seen and examined by me [id number]. All the laboratory, vital signs, and images were reviewed. The patient presented to the emergency department with a chief complaint of fever, chest pain, and some shortness of breath. As per the patient, this fever has been going on since yesterday. She denies any sick contacts at home and she states that she has not been going out either but she went to [place] last Saturday. She went to her doctor's office and apparently she had a blood transfusion at that moment as well. No fever or respiratory symptoms at home. Like I said, no sick contacts at home. Her temperature upon admission was 103. She is tachycardic as well. I do not have a clear source of infection. Her influenza has been negative as well as the strep antigen. We ordered blood culture, urine culture, and a sputum culture. She previously had a bacteremia due to Staphylococcus aureus, MSSA. She was treated with long-term antibiotics. As per the patient, she finished the treatment. I do not have a clear source of infection and that is why I will put this patient on Zyvox and Zosyn. This could be related with a sickle cell crisis. I will treat her with IV fluids, oxygen, and pain medication as well. Hopefully, all the cultures will be negative. If the blood culture is positive, I will go ahead and ask for an echocardiogram again. She has a history of endocarditis. Physical exam is benign. Some crepitus at the bases of the lungs. Her hemoglobin is good at 10.3 but I believe she is slightly dehydrated. Kidney function is stable. Urinalysis looks clean and she tested positive for cannabinoids. Due to her symptoms including shortness of breath and fever, we will go ahead and order Covid-19 for this patient. We will wait for the results. She will be isolated. I agree with the rest of the nurse practitioner's assessment and plan. cc: MD NELLA Winters
[2019-12-06] MEDS ORDERED: HYDREA PO ONE (17:32)
[2019-12-06] MEDS: NS 1,000 ML IV SCH (19:00)
[2019-12-06] MEDS: TYLENOL PO PRN (19:01)
[2019-12-06] MEDS: ZOSYN 3.375 GM in NS 50 ML IV SCH (20:38)
[2019-12-07] MEDS: DILAUDID IV PRN ×7 (01:46→21:56)
[2019-12-07] MEDS: ZOSYN 3.375 GM in NS 50 ML IV SCH ×4 (04:41→21:10)
[2019-12-07] MEDS: ZYVOX 600 MG/D5W 600 MG/300 ML IVPB IV SCH ×2 (04:45→17:04)
[2019-12-07] MEDS: NS 1,000 ML IV SCH ×3 (04:46→15:37)
--- NOTE | 2019-12-07 07:16 | Diag Imaging Result Doc PS360 ---
CHEST-PORTABLE - 12/07/2019 INDICATION: sepsis COMPARISON: 12/06/2019 FINDINGS: Stable low lung volumes. Stable faint interstitial infiltrates/pulmonary edema. Stable mild cardiomegaly. No significant pleural effusion. IMPRESSION: No change from prior. Electronically signed by Errol Curiel 12/07/2019 7:14 AM
[2019-12-07] MEDS: HYDREA PO SCH (08:49)
[2019-12-07 09:36] LABS: RETIC% 4.07 % (0.8-2.1); RETIC-HE 22.4 PG (28.2-36.6)
[2019-12-07 09:43] LABS: BASO# 0.05 X1000 (0.0-0.2); BASO% 0.5 % (0.0-0.8); EOS# 0.32 X1000 (0.0-0.7); HEMATOCRIT 29.9 % (37.0-47.0); HEMOGLOBIN 9.7 g/dL (12.0-16.0); IMM GRAN# 0.02 X1000 (0.0-0.04); IMM GRAN% 0.2 % (0.0-0.5); LYMPH% 25.2 % (20.5-51.1); MCH 26.8 PG (27-31); MCHC 32.4 g/dL (33-37); MCV 82.6 FL (81-99); MONO# 0.61 X1000 (0.11-0.59); MONO% 5.7 % (1.7-9.3); MPV 7.9 FL (7.4-10.4); NEUT# 7.03 X1000 (1.4-6.5); NEUT% 65.4 % (42.2-75.2); PLT 237 X1000 (130-400); RBC 3.62 XMIL (4.2-5.4); RDW 21.7 % (11.5-14.5); WBC 10.73 X1000 (4.8-10.8)
[2019-12-07 09:48] LABS: AGAP 10; BUN 8 mg/dL (8-22); CALCIUM 8.8 mg/dL (8.8-10.2); CHLORIDE 102 mmol/L (98-107); COSMO 268; CREATININE 0.4 mg/dL (0.5-0.9); ESTIMATED GFR > 60; GLUCOSE 91 mg/dL (70-104); POTASSIUM 3.8 mmol/L (3.5-5.1); SODIUM 135 mmol/L (136-145); TCO2 23 mmol/L (25-35)
--- NOTE | 2019-12-07 10:27 | EKG Report ---
Test Performed on : 12/06/2019 2:07:23 PM Test Reason : ED. No order in [place] Blood Pressure : / mmHG Vent. Rate : 111 BPM Atrial Rate : 111 BPM P-R Int : 120 ms QRS Dur : 078 ms QT Int : 318 ms P-R-T Axes : 061 020 011 degrees QTc Int : 432 ms Sinus tachycardia. Possible Left atrial enlargement Nonspecific T wave abnormality Abnormal ECG When compared with ECG of 12-NOV-2019 14:11, (Unconfirmed) No significant change was found Unconfirmed Result
--- NOTE | 2019-12-07 13:40 | PROGRESS NOTE ---
DATE: 12/07/2019 SUBJECTIVE: The patient was having some elevated temperature during the night, and actually at around 10 p.m., the temperature was 103.1 degrees, but today after 8 a.m. it has been within normal limits. I will continue with broad spectrum antibiotics. I did a blood culture and so far it has been negative, as well as the urine culture. I will continue with the same management for now. If the blood culture is positive, I will go ahead and do an echocardiogram, but so far I do not have a source of infection, probably this is related to her sickle cell disease with sickle cell crisis, but we will keep an eye on the results with the white blood cell count basically normalized. OBJECTIVE: Vital Signs: Temperature 98.1 degrees, pulse 91, respiratory rate 16, blood pressure 101/59, oxygen saturation 100% on room air. HEENT: Head normocephalic, no trauma. PERRLA. Neck: Supple. No JVD. No masses. Central trachea. Chest: Clear to auscultation. No wheezing. No rales. Abdomen: Soft. Some discomfort to palpation at the level of the periumbilical area. Extremities: No edema, no clubbing, no cyanosis. Neurological examination: The patient is awake. She is alert. She is oriented x3. No focal neurological deficits. LABORATORY: WBC 10.7, hemoglobin 9.7, hematocrit 29.9, platelets 237. Sodium 135, potassium 3.8, chloride 102, bicarbonate 23. BUN 8, creatinine 0.6, glucose 91, calcium 8.8. ASSESSMENT AND PLAN: 1. This patient meets criteria for seizures with elevated white blood cell count, tachycardia and fever. I do not have a source of infection yet. This could be related to her sickle cell crisis, but we will keep an eye on the blood culture and urine culture. She is not producing any phlegm to send for sputum culture. She is still complaining of some chest pain radiating to the back. X-ray showed some enlargement of the heart and pulmonary vascular congestion, faint infiltrates that could be either pulmonary edema or pneumonia, but again she is not having any respiratory symptoms. So we will monitor this patient and continue with broad- spectrum antibiotics. 2. 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 Continue with aggressive intravenous fluids, pain medication, and oxygen supplementation as needed. 3. Hypotension. We will continue with the intravenous fluids. Blood pressure has been between the 90s and 110s. The last one at noon was 101/59. We will keep an eye on this. 4. Drug use. This patient is positive for cannabinoids. She has been advised against cannabinoid use. I will continue with daily cessation education. 5. History of cavitary pneumonia associated with septic pulmonary embolism in September 2019, already treated. 6. 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 7. History of asthma. Aware. cc: Eros Redmond MD
[2019-12-07] MEDS: TYLENOL PO PRN (17:03)
[2019-12-07] MEDS: AMBIEN PO SCH (21:10)
[2019-12-08] MEDS: DILAUDID IV PRN ×7 (01:13→20:43)
[2019-12-08] MEDS: NS 1,000 ML IV SCH ×4 (03:45→17:28)
[2019-12-08] MEDS: ZOSYN 3.375 GM in NS 50 ML IV SCH ×4 (03:47→20:42)
[2019-12-08] MEDS: ZYVOX 600 MG/D5W 600 MG/300 ML IVPB IV SCH ×2 (04:54→17:29)
[2019-12-08 05:35] LABS: BASO# 0.02 X1000 (0.0-0.2); BASO% 0.2 % (0.0-0.8); EOS# 0.38 X1000 (0.0-0.7); EOS% 3.8 % (0.0-10.0); HEMATOCRIT 27.2 % (37.0-47.0); HEMOGLOBIN 8.9 g/dL (12.0-16.0); IMM GRAN# 0.02 X1000 (0.0-0.04); IMM GRAN% 0.2 % (0.0-0.5); MCH 26.7 PG (27-31); MCHC 32.7 g/dL (33-37); MCV 81.7 FL (81-99); MONO# 0.48 X1000 (0.11-0.59); MONO% 4.8 % (1.7-9.3); MPV 8.8 FL (7.4-10.4); NEUT# 7.21 X1000 (1.4-6.5); PLT 247 X1000 (130-400); RBC 3.33 XMIL (4.2-5.4); RDW 22.2 % (11.5-14.5); WBC 10.01 X1000 (4.8-10.8)
[2019-12-08 05:47] LABS: AGAP 10; BUN 9 mg/dL (8-22); CALCIUM 9.3 mg/dL (8.8-10.2); CHLORIDE 102 mmol/L (98-107); COSMO 268; CREATININE 0.5 mg/dL (0.5-0.9); ESTIMATED GFR > 60; GLUCOSE 90 mg/dL (70-104); POTASSIUM 3.8 mmol/L (3.5-5.1); SODIUM 135 mmol/L (136-145); TCO2 23 mmol/L (25-35)
[2019-12-08 06:41] LABS: LYMPHS 10 % (21-51); SEGS 84 % (42-75)
[2019-12-08] MEDS: HYDREA PO SCH (08:42)
--- NOTE | 2019-12-08 13:31 | PROGRESS NOTE ---
DATE: 12/08/2019 SUBJECTIVE: This patient is still having some low-grade temperature. I will continue with IV fluids. The cultures have been negative so far from the , so it has been more than 48 hours with a negative result. Urine culture did not show any abnormality either and she is not complaining of burning sensation with the urine. She is still complaining of chest pain radiating to the back, which is a chronic for this patient. She is still getting IV fluids. She is still getting oxygen supplementation as needed and pain medication. OBJECTIVE: Vital Signs: Temperature 98.4 degrees, pulse 83, respiratory rate 20, blood pressure 117/75, oxygen saturation 100% on room air. HEENT: Head normocephalic. No trauma. PERRLA. Neck: Supple. No JVD. No masses. Central trachea. Chest: Clear to auscultation. No wheezing. No rales. Abdomen: Soft. Some discomfort to palpation at the level of the periumbilical area. Extremities: No edema, no clubbing, no cyanosis. Neurological Examination: The patient is awake and alert. She is oriented. Laboratory: WBC 10.0, hemoglobin 8.9, hematocrit 27.2, platelets 247,000. Sodium 135, potassium 3.8, chloride 102, bicarbonate 23, BUN 9, creatinine 0.5, glucose 90, calcium 9.3. ASSESSMENT AND PLAN: 1. Patient meets criteria for systemic inflammatory response syndrome with elevated white blood cell count, tachycardia, and fever. I do not have a source of infection yet but it could be related to sickle cell crisis. We will continue keeping an eye on the blood culture and the urine. She is still having some low-grade temperature. She is still having some chest pain radiating to the back. X-ray showed some enlargement of the heart and pulmonary vascular congestion, faint infiltrates that could be either pulmonary edema or pneumonia. Again, she is on broad-spectrum antibiotics. I will continue with the same management. 2. Sickle cell disease and sickle cell crisis. Continue with intravenous fluids, oxygen supplementation as needed, and pain medication as needed as well. 3. Hypotension. This is better. Continue intravenous fluids. 4. Drug use. This patient is positive for cannabinoids and also is well known to our service for chronic opioid use. She has requested today to be on both intravenous and oral treatment but given her borderline low blood pressure, I will continue with the same management. 5. History of cavitary pneumonia associated with septic pulmonary embolism in September 2019, already treated. 6. 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 This has been already treated. At this moment, she is on broad-spectrum antibiotics as well. If the blood culture is positive, I will get an echocardiogram. 7. History of asthma. Aware. cc: Eros Redmond MD
[2019-12-08] MEDS: BENADRYL PO PRN (17:29)
[2019-12-08] MEDS: AMBIEN PO SCH (20:42)
[2019-12-08] MEDS: TYLENOL PO PRN (20:54)
[2019-12-09] MEDS: DILAUDID IV PRN ×4 (00:07→09:51)
[2019-12-09] MEDS: NS 1,000 ML IV SCH ×3 (03:25→15:59)
[2019-12-09] MEDS: ZOSYN 3.375 GM in NS 50 ML IV SCH ×4 (03:25→20:22)
[2019-12-09] MEDS: ZYVOX 600 MG/D5W 600 MG/300 ML IVPB IV SCH ×2 (04:43→16:44)
[2019-12-09 05:37] LABS: AGAP 10; BUN 9 mg/dL (8-22); CALCIUM 8.6 mg/dL (8.8-10.2); CHLORIDE 105 mmol/L (98-107); COSMO 272; CREATININE 0.4 mg/dL (0.5-0.9); ESTIMATED GFR > 60; GLUCOSE 87 mg/dL (70-104); POTASSIUM 4.1 mmol/L (3.5-5.1); SODIUM 137 mmol/L (136-145); TCO2 22 mmol/L (25-35)
[2019-12-09 05:42] LABS: BASO# 0.04 X1000 (0.0-0.2); BASO% 0.6 % (0.0-0.8); EOS# 0.28 X1000 (0.0-0.7); EOS% 4.2 % (0.0-10.0); HEMATOCRIT 25.3 % (37.0-47.0); HEMOGLOBIN 8.4 g/dL (12.0-16.0); IMM GRAN# 0.02 X1000 (0.0-0.04); IMM GRAN% 0.3 % (0.0-0.5); LYMPH# 2.13 X1000 (1.2-3.4); LYMPH% 32.2 % (20.5-51.1); MCH 27.2 PG (27-31); MCHC 33.2 g/dL (33-37); MCV 81.9 FL (81-99); MONO# 0.34 X1000 (0.11-0.59); MONO% 5.1 % (1.7-9.3); MPV 8.3 FL (7.4-10.4); NEUT% 57.6 % (42.2-75.2); PLT 244 X1000 (130-400); RBC 3.09 XMIL (4.2-5.4); RDW 22.5 % (11.5-14.5); WBC 6.61 X1000 (4.8-10.8)
[2019-12-09] MEDS: HYDREA PO SCH (09:51)
[2019-12-09] MEDS: DILAUDID PO PRN ×3 (13:13→21:42)
--- NOTE | 2019-12-09 13:50 | PROGRESS NOTE ---
DATE: 12/09/2019 SUBJECTIVE: The patient seems to be feeling better, she had an episode of low-grade fever yesterday at 100.6. I will continue with broad-spectrum antibiotics. Blood cultures so far negative from 12/06/2019. OBJECTIVE: Vital Signs: Temperature 98.4 degrees, pulse 90, respiratory rate 16, blood pressure 112/72. Oxygen saturation 100% on room air. HEENT: Head normocephalic. No trauma. PERRLA. Neck: Supple. No JVD. No masses. Central trachea. Chest: Clear to auscultation. No wheezing. No rales. Abdomen: Soft. Some discomfort in the periumbilical area. Extremities: No edema. Neurological: Stable. LABORATORY: WBC 6.6, hemoglobin 8.4, hematocrit 25.3. Sodium 137, potassium 4.1, chloride 105, bicarbonate 23, BUN 9, creatinine 0.4, glucose 87, calcium 8.6. ASSESSMENT AND PLAN: 1. Patient meets criteria for SIRS with elevated white blood cell count, tachycardia and fever, but I do not have any source of infection. Likely this is related to sickle cell crisis, which is much better. Patient actually has requested to be on p.o. treatment, so I will stop the IV medication for pain. She is not requiring oxygen. Pending results of the Coronavirus Disease-19, I do believe it is going to be negative. 2. Sickle cells sickle cell disease and sickle cell crisis, I will continue with IV fluids, oxygen supplementation. I will need at least 24 hours without any fever or low-grade fever to be able to discharge this patient home. 3. Hypotension, resolved. Continue with IV fluids. 4. Drug use. This patient is positive for cannabinoids and also she has been she is well known to our service for chronic opioid use. 5. History of cavitary pneumonia associated with septic pulmonary embolism in September 2019, already treated. 6. Methicillin-sensitive Staphylococcal aureus bacteremia and tricuspid valve endocarditis. This has been already treated as well. At this moment, she is still on broad-spectrum antibiotics and the blood culture has been negative. 7. History of asthma. Aware. No asthma exacerbation at this moment. cc: Eros Redmond MD
[2019-12-09] MEDS ORDERED: BLISTEX MEDICATED BERRY LIP BALM TOP ONE (18:03)
[2019-12-09] MEDS: AMBIEN PO SCH (20:22)
[2019-12-10] MEDS: DILAUDID PO PRN ×6 (01:41→23:28)
[2019-12-10] MEDS: ZOSYN 3.375 GM in NS 50 ML IV SCH ×4 (01:42→20:51)
[2019-12-10] MEDS: NS 1,000 ML IV SCH ×5 (03:17→20:54)
[2019-12-10] MEDS: ZYVOX 600 MG/D5W 600 MG/300 ML IVPB IV SCH ×2 (03:18→16:13)
[2019-12-10] MEDS: HYDREA PO SCH (09:59)
--- NOTE | 2019-12-10 13:42 | PROGRESS NOTE ---
DATE: 12/10/2019 SUBJECTIVE: The patient is feeling better. She is still complaining of chest pain radiating to her back. She is still having low-grade temperature, negative cultures. I do believe this patient can go home once we have at least 24 hours without fever or low-grade temperature. Her COVID-19 has been negative. OBJECTIVE: Vital Signs: Temperature 98.3 degrees, pulse 96, respiratory rate 16, blood pressure 104/59, oxygen saturation 99% on room air. HEENT: Head normocephalic. No trauma. PERRLA. Neck: Supple. No JVD. No masses. Central trachea. Chest: Clear to auscultation. No wheezing. No rales. Abdomen: Soft. Some discomfort to palpation at the level of the periumbilical area. Extremities: No edema. No clubbing. No cyanosis. Neurological: Awake, alert. Stable. LABORATORY: No lab work done today. ASSESSMENT AND PLAN: 1. Patient meets criteria for Systemic Inflammatory Response Syndrome (SIRS) with elevated white blood cell count, tachycardia, fever, but I do not have any source of infection. Likely this is related to her to her sickle cell disease and sickle cell crisis, which is better. She is still complaining of chest pain radiating to her back, but this is chronic. She is not using oxygen. She is taking p.o. treatment for her pain. Continue with IV fluids. Her Coronavirus Disease-19 test has been negative. 2. 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 Continue with IV fluid, oxygen as needed, pain medication. I will wait at least 24 hours without low rate temperature to send her home. Cultures are negative. 3. Hypotension resolved. She has been always in the 100s to 110s. 4. Drug use. This patient is positive for cannabinoids and also she is well-known to our service for chronic opioid use. This patient has been highly advised against drug use. I will continue with daily cessation education. 5. History of cavitary pneumonia associated with septic pulmonary emboli in September 2019, already treated. 6. 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 At this moment, she is on broad-spectrum antibiotics due to her current presentation. 7. History of asthma aware. No asthma exacerbation at this moment. Overall, this patient is doing much better. I do believe this patient can be discharged in the next 24 hours. She came in with a temperature of 103.1 degrees, but now she is having just low- grade temperature. Her COVID-19 has been negative. She seems to be more stable. If she is not having more low-grade temperature hopefully, she can be discharged home. cc: Eros Redmond MD
[2019-12-10] MEDS: AMBIEN PO SCH (20:51)
[2019-12-11] MEDS: TYLENOL PO PRN (00:10)
[2019-12-11] MEDS: ZOSYN 3.375 GM in NS 50 ML IV SCH ×3 (02:45→15:19)
[2019-12-11] MEDS: DILAUDID PO PRN ×4 (03:25→15:20)
[2019-12-11] MEDS ORDERED: ZYVOX PO SCH (06:00)
[2019-12-11 06:57] LABS: BASO# 0.03 X1000 (0.0-0.2); BASO% 0.5 % (0.0-0.8); EOS# 0.26 X1000 (0.0-0.7); EOS% 4.3 % (0.0-10.0); HEMATOCRIT 25.6 % (37.0-47.0); HEMOGLOBIN 8.3 g/dL (12.0-16.0); LYMPH# 2.19 X1000 (1.2-3.4); LYMPH% 36.1 % (20.5-51.1); MCH 26.6 PG (27-31); MCHC 32.4 g/dL (33-37); MCV 82.1 FL (81-99); MONO# 0.32 X1000 (0.11-0.59); MONO% 5.3 % (1.7-9.3); MPV 8.4 FL (7.4-10.4); NEUT# 3.26 X1000 (1.4-6.5); NEUT% 53.8 % (42.2-75.2); PLT 263 X1000 (130-400); RBC 3.12 XMIL (4.2-5.4); RDW 23.1 % (11.5-14.5); WBC 6.06 X1000 (4.8-10.8)
[2019-12-11 07:15] LABS: AGAP 12; BUN 6 mg/dL (8-22); CALCIUM 9.1 mg/dL (8.8-10.2); CHLORIDE 96 mmol/L (98-107); COSMO 256; CREATININE 0.4 mg/dL (0.5-0.9); ESTIMATED GFR > 60; GLUCOSE 90 mg/dL (70-104); POTASSIUM 3.5 mmol/L (3.5-5.1); SODIUM 129 mmol/L (136-145); TCO2 21 mmol/L (25-35)
[2019-12-11 07:23] LABS: LYMPHS 42 % (21-51); MONO 4 % (1-9); SEGS 48 % (42-75)
[2019-12-11] MEDS: HYDREA PO SCH (09:26)
[2019-12-11] MEDS: NS 1,000 ML IV SCH (11:43)
[2019-12-11] MEDS: BENADRYL PO PRN (15:22)
[2019-12-11 15:44] VITALS: BP 126/82
--- NOTE | 2019-12-11 15:48 | DISCHARGE SUMMARY ---
ADMISSION DATE: 12/06/2019 DISCHARGE DATE: 12/11/2019 ADMISSION DIAGNOSES: 1. Sepsis per elevated white blood cell count, tachycardia and fever with no source of infection identified. 2. Sickle cell disease. 3. Hypotension. 4. Cannabinoid use. 5. Asthma. 6. History of cavitary pneumonia associated with septic pulmonary emboli in September of 2019 completed treatment. 7. MRSA bacteremia and tricuspid valve endocarditis has been treated per the patient. DISCHARGE DIAGNOSES: 1. SIRS with elevated white blood count, tachycardia, and fever, but no source of infection. 2. 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 3. Hypotension resolved. 4. Cannabinoid abuse. 5. History of cavitary pneumonia associated with septic pulmonary emboli in September of 2019 already treated. 6. MRSA bacteremia and tricuspid valve endocarditis has been treated as well on broad-spectrum antibiotics. 7. History of asthma aware. SUMMARY OF FINDINGS: This is a 24-year-old female well known to our service presented to the emergency room complaining of chest pain under her breast and radiates through to her back, shortness of breath, headache, and a fever that happens once a day. She was admitted, and placed on broad-spectrum antibiotics, IV fluids and pain medications. Her urine culture grew mixed nguyễn. Blood culture showed no growth after 48 hours. Throat culture no group A strep isolated. Her influenza A and B were both negative. Her hemoglobin and hematocrit has remained stable. It is now felt that she can safely be discharged home. DISCHARGE MEDICATIONS: 1. Ambien CR 6.25 mg p.o. at bedtime. 2. Hydromorphone 4 mg p.o. b.i.d. p.r.n. 3. Hydroxyurea 1500 mg p.o. at bedtime. 4. Sertraline 50 mg p.o. daily. TIME SPENT: 35 minute discharge. Dictated by CORRINA Gr for Tray Baker MD Addendum: Patient seen and examined by myself. Agree with CORRINA note. It reflects my assessment and plan. Patient is being discharged in stable condition to home and will be seen by PCP upon discharge. cc: CORRINA Gr MD [facility]
== END 2019-12-11 16:54 | disposition home or self-care (01) | DRG 812 ==
LOC: ED 11:06 → 4N 18:10 → SUATTDRO 18:10 → 4N 12-10 11:27
PROVIDERS: ATTEND Internal Medicine

== ENCOUNTER 2019-12-15 02:06 | Inpatient (IN) ==
[2019-12-15] MEDS ORDERED: NS 1,000 ML IV ONE ×2 (02:35→05:21)
--- NOTE | 2019-12-15 02:36 | PROVIDER DOCUMENTATION ---
HPI-Fever - General Time Seen by Provider: 12/15/19 02:19 Allergies/Adverse Reactions: Patient Allergies Allergy/AdvReac Type Severity Reaction Status Date / Time meperidine HCl * Allergy Severe SHORTNESS Verified 12/13/19 20:26 [From Demerol] OF BREATH; AND HEADACHE vancomycin Allergy Severe RASH Verified 12/13/19 20:26 latex Allergy Mild RASH Verified 12/13/19 20:26 Home Medications: Home Medication List Medication Instructions Recorded Confirmed Last Taken Type Hydroxyurea 1,500 mg PO HS 12/06/19 12/13/19 12/05/19 History Sertraline [Zoloft] 50 mg PO DAILY 12/06/19 12/13/19 12/05/19 History Zolpidem Tartrate [Ambien Cr] 6.25 mg PO QHS 12/07/19 12/13/19 Unknown History Hydromorphone HCl 1 tab PO BID PRN PRN #10 12/11/19 12/13/19 Unknown Rx Buprenorphine 1 patch TOP DIRECTED 12/13/19 12/13/19 Unknown History - History of Present Illness-Fever Nature of Presenting Problem: Presents to the with complaints of pain all over mostly in her legs and chest and fever. She states that she was just discharged from the hospital. She states she took her temp at home and it was 104. She last took two tylenol about 3 hours ago. She is lying in bed groaning and will not answer further questions. Review of Systems - Adult - REVIEW OF SYSTEMS - ADULT ROS:: vague historian, uncomfortable appearing Constitutional: reports: see HPI Eyes: reports: no symptoms reported Ears, Nose, Mouth & Throat: reports: no symptoms reported Cardiovascular: reports: see HPI, chest pain Respiratory: reports: see HPI, shortness of breath Gastrointestinal: reports: see HPI Genitourinary: reports: no symptoms reported Musculoskeletal: reports: see HPI, back pain, other Integumentary: reports: no symptoms reported Neurological: reports: no symptoms reported Psychiatric: reports: no symptoms reported Endocrine: reports: no symptoms reported Hematologic/Lymphatic: reports: no symptoms reported Allergic/Immunologic: reports: no symptoms reported All Other Systems: Reviewed and Negative Past History - Adult - PAST MEDICAL HISTORY-ADULT Review of Records: reports: Old Records Reviewed Major Childhood Illnesses: reports: denies history, other (Sickle Cell) Cardiovascular: reports: heart valve problem (endocarditis) Respiratory: reports: asthma, lung disease, pneumonia Gastrointestinal: reports: cholelithiasis Obstetrical/Gynecological: reports: denies history Genitourinary: reports: denies history Musculoskeletal: reports: chronic pain (sickle cell) Neurological: reports: Seizures/Epilepsy Psychiatric: reports: depression Endocrine/Immune: reports: Sickle Cell disease Sickle Cell Genotype:: SS Other Conditions: reports: denies history - PRIOR SURGERIES/PROCEDURES Surgical/Procedure History: reports: reviewed, not pertinent, cholecystectomy, indwelling device - IMMUNIZATION STATUS Childhood Immunizations: See Nurse Assessment Flu Vaccine: See Nurse Assessment - FAMILY HISTORY Family History: sickle cell disease/trait, HTN Physical Exam-General - CONSTITUTIONAL General Appearance: alert, moderate distress (lying in bed groaning), thin - EYES Eyes: PERRL/EOMI - HEAD, EARS, NOSE, MOUTH & THROAT HENMT: normocephalic/atraumatic - NECK Neck: supple, normal inspection - RESPIRATORY Respiratory: chest non-tender, decreased breath sounds, accessory muscle use, crackles, increased rate - CARDIOVASCULAR Cardiovascular: normal peripheral pulses, tachycardia, systolic murmur - GASTROINTESTINAL (ABDOMEN) Abdominal Exam: normal bowel sounds, non tender, soft - MUSCULOSKELETAL Back Exam: normal inspection Extremity: normal gait, normal inspection - SKIN Integumentary: normal color, warm/dry - NEUROLOGIC Neurologic: grossly normal - PSYCHIATRIC Psych/Mental Status: normal mood/affect, oriented x 3, anxious Progress - PLAN OF CARE/RESULTS Progress/Plan/Lab Results: Vital Signs - 8 hr 12/15/19 02:35 Temperature 102.2 F H Pulse Rate 136 H Respiratory Rate 15 Blood Pressure 106/58 O2 Sat by Pulse Oximetry 96 Bedside Urine ED: Urine Bedside Start: 12/15/19 02:26 Freq: ORDERED Status: Active Protocol: Activity Type Activity Date Activity User E-Sign Co-Sign Detail Recorded Client Recorded Date Recorded By Document 12/15/19 04:37 [id number] 12/15/19 04:38 [id number] 12/15/19 04:37 Point of Care [Bedside Point of Care] -Lot # [id number] - Results Negative -Control Line Visible? Yes 12/15/19 04:00 Group A Strep Rapid Antigen - Final Throat Laboratory Results - last 24 hr 03/12/15/19 12/15/19 03:30 03:30 03:30 WBC RBC Hgb Hct MCV MCH MCHC RDW Std Deviation Plt Count MPV Immature Gran % (Auto) Neut % (Auto) Lymph % (Auto) [facility] % (Auto) Eos % (Auto) Baso % (Auto) Immature Gran # (Auto) Neut # (Auto) Lymph # (Auto) [facility] # (Auto) Eos # (Auto) Baso # (Auto) Percent Retic Retic Hgb Equivalent Sodium 138 Potassium 3.6 Chloride 100 Carbon Dioxide 23 L Anion Gap 15 BUN 5 L Creatinine 0.6 Estimated GFR/1.73 m2 > 60 BUN/Creatinine Ratio 8 Glucose 95 Calculated Osmolality 273 Calcium 9.1 Total Bilirubin 1.27 H AST 17 ALT 29 Alkaline Phosphatase 242 H Lactate Dehydrogenase 214 Troponin T High Sens < 6 Total Protein 8.5 H Albumin 4.0 Globulin 4.5 Albumin/Globulin Ratio 0.9 Plasma Lactate 1.7 Urine Source Urine Color Urine Turbidity Urine pH Ur Specific [place] Urine Protein Ur Glucose (Stick) Ur Ketones (Stick) Urine Blood Urine Nitrite Urine Bilirubin Urobilinogen Dipstick Urine Leukocytes Urine WBC (Auto) Urine RBC (Auto) U Epithel Cells (Auto) Urine Bacteria (Auto) Urine Crystals Small Round Cells Urine Casts Urine Yeast-like Cells 12/15/19 12/15/19 03:30 04:34 WBC 11.02 H RBC 2.92 L Hgb 7.7 L Hct 24.0 L MCV 82.2 MCH 26.4 L MCHC 32.1 L RDW Std Deviation 23.1 H Plt Count 297 MPV 8.1 Immature Gran % (Auto) 0.2 Neut % (Auto) 77.4 H Lymph % (Auto) 16.[address] [place] % (Auto) 4.6 Eos % (Auto) 1.5 Baso % (Auto) 0.3 Immature Gran # (Auto) 0.02 Neut # (Auto) 8.53 H Lymph # (Auto) 1.76 [facility] # (Auto) 0.51 Eos # (Auto) 0.17 Baso # (Auto) 0.03 Percent Retic 3.24 H Retic Hgb Equivalent 23.8 L Sodium Potassium Chloride Carbon Dioxide Anion Gap BUN Creatinine Estimated GFR/1.73 m2 BUN/Creatinine Ratio Glucose Calculated Osmolality Calcium Total Bilirubin AST ALT Alkaline Phosphatase Lactate Dehydrogenase Troponin T High Sens Total Protein Albumin Globulin Albumin/Globulin Ratio Plasma Lactate Urine Source CLEAN CATCH Urine Color ORANGE Urine Turbidity CLEAR Urine pH 6.5 Ur Specific [place] 1.016 Urine Protein 30 A Ur Glucose (Stick) NEGATIVE Ur Ketones (Stick) NEGATIVE Urine Blood TRACE A Urine Nitrite NEGATIVE Urine Bilirubin NEGATIVE Urobilinogen Dipstick NORMAL Urine Leukocytes NEGATIVE Urine WBC (Auto) <10 Urine RBC (Auto) <10 U Epithel Cells (Auto) <10 Urine Bacteria (Auto) NEGATIVE Urine Crystals NONE SEEN Small Round Cells NONE SEEN Urine Casts NONE SEEN Urine Yeast-like Cells NONE SEEN Orders Category Date Time Status Cardiac Monitoring NOW Care 12/15/19 05:03 Active ED: Urine Bedside ORDERED Care 12/15/19 02:26 Active IV Insertion NOW Care 12/15/19 05:03 Completed NEWS Score >or=5:Order NEWS Bundle S.O. NOW Care 12/15/19 02:40 Completed Notify Provider of NEWS Score NOW Care 12/15/19 05:03 Active CHEST-1 VIEW [RAD] Stat Exams 12/15/19 02:26 Taken BLOOD CULTURE [BLDCUL] Stat Lab 12/15/19 03:35 Results CBC WITH ELECTRONIC DIFF [HEME] Stat Lab 12/15/19 03:30 Completed CK PROFILE [SP CHEM] Stat Lab 12/15/19 03:30 Received COMPREHENSIVE METABOLIC PANEL [CHEM] Stat Lab 12/15/19 03:30 Completed DIRECT STREP Stat Lab 12/15/19 04:00 Completed INFLUENZA SCREEN A/B Stat Lab 12/15/19 04:00 Received LACTATE, PLASMA [CHEM] Stat Lab 12/15/19 03:30 Completed LACTATE, PLASMA [CHEM] Stat Lab 12/15/19 06:30 Uncollected LACTATE, PLASMA [CHEM] Stat Lab 12/15/19 09:30 Uncollected LDH [CHEM] Stat Lab 12/15/19 03:30 Completed PROTIME WITH INR [COAG] Stat Lab 12/15/19 03:30 Received PTT [COAG] Stat Lab 12/15/19 03:30 Received RETIC COUNT [HEME] Stat Lab 12/15/19 03:30 Completed TROPONIN T HIGH SENSITIVITY Stat Lab 12/15/19 03:30 Completed URINALYSIS W/POSS RFLX CULT [URINALYSIS] Stat Lab 12/15/19 04:34 Completed URINE CULTURE [RM] Routine Lab 12/15/19 04:34 Received URINE MANUAL MICROSCOPIC [URINALYSIS] Stat Lab 12/15/19 04:34 Completed 0.9% Sodium Chloride Inj [Ns] 1,000 ml Med 12/15/19 05:21 Active IV 125 mls/hr 0.9% Sodium Chloride Inj [Ns] 1,000 ml Med 12/15/19 02:35 Discontinued IV 999 mls/hr Acetaminophen [Tylenol] Med 12/15/19 03:23 Discontinued 1,000 mg PO NOW ONE CefEPIME [Maxipime] 1 gm Med 12/15/19 05:21 Active 0.9% Sodium Chloride Inj [Ns] 50 ml IV NOW Daptomycin [Cubicin] 500 mg Med 12/15/19 03:30 Active 0.9% Sodium Chloride Inj [Ns] 100 ml IV Q24H Diphenhydramine [Benadryl] Med 12/15/19 04:25 Discontinued 50 mg PO NOW ONE Hydromorphone [Dilaudid] Med 12/15/19 02:54 Discontinued 1 mg IV NOW ONE O2 Per Protocol Stat Oth 12/15/19 05:03 Active Patient with history of port infection with staph and received daptomycin in the past as she is allergic to vanc. CXR appears to also be unchanged from 12.12 on her DC date when she was admitted for bilateral PNA. She likely still has bi lateral PNA. Will add cefepime. She only has an 11k WBC but she was febrile to 102. Her COVID test on her last admission was negative. Her retic count is 3.24 and her Hgb is down to 7.7. Spoke to Dr Steiner, lunch wagon operator for hosp who accepted patient admission. Further orders to be placed by their team. Result Diagrams: 12/15/19 03:30 12/15/19 03:30 - XRAY 1 XRAY Study: Chest Comparison with other Films: no changes (bilateral pneumonia) - CONSULTS/PCP/HOSPITALIST Notification #1 *Consult/PCP/Hospitalist*: Dr Steiner Time Discussed: 05:25 Consult Disposition: Admit Departure - Departure Date of Disposition Decision: 12/15/19 Time of Disposition Decision: 05:24 DIAGNOSIS: Sickle cell pain crisis, Fever in adult Chronic pain Qualifiers: Chronic pain type: chronic pain syndrome Qualified Code(s): G89.4 - Chronic pain syndrome Sepsis Qualifiers: Sepsis acute organ dysfunction status: without acute organ dysfunction Bilateral pneumonia Qualifiers: Lung location: unspecified part of lung Disposition: ADMITTED INPATIENT 09 Certified Medical Emergency: Emergent Condition: Fair Referrals and Follow-Ups: None,PCP [Primary Care Provider] - - Critical Care Note This patient required my direct & personal management of CC.: Yes Total Time (mins): 35 Critical Care Statement: This patient required my direct personal management to treat or rule out processes, the absence of which, could potentiallly result in sudden, clinically significant life or limb threatening deterioration. Attestation - Physician/ EDNA Attestation Patient care was provided by Advanced Practice Provider:: No The physician spent face to face time with patient:: Yes Advanced Practice Provider documentation review:: Supervising physician onsite and consulted in the evaluation and care of this patient. The physician did have a face to face encounter with the patient.
[2019-12-15] MEDS ORDERED: DILAUDID IV ONE ×2 (02:54→06:51)
[2019-12-15] MEDS ORDERED: TYLENOL PO ONE (03:23)
[2019-12-15] MEDS ORDERED: CUBICIN 500 MG in NS 100 ML IV SCH (03:30)
[2019-12-15 04:11] LABS: BASO# 0.03 X1000 (0.0-0.2); BASO% 0.3 % (0.0-0.8); EOS# 0.17 X1000 (0.0-0.7); EOS% 1.5 % (0.0-10.0); HEMOGLOBIN 7.7 g/dL (12.0-16.0); IMM GRAN# 0.02 X1000 (0.0-0.04); IMM GRAN% 0.2 % (0.0-0.5); LYMPH# 1.76 X1000 (1.2-3.4); MCH 26.4 PG (27-31); MCHC 32.1 g/dL (33-37); MCV 82.2 FL (81-99); MONO# 0.51 X1000 (0.11-0.59); MONO% 4.6 % (1.7-9.3); MPV 8.1 FL (7.4-10.4); NEUT# 8.53 X1000 (1.4-6.5); NEUT% 77.4 % (42.2-75.2); PLT 297 X1000 (130-400); RBC 2.92 XMIL (4.2-5.4); RDW 23.1 % (11.5-14.5); RETIC% 3.24 % (0.8-2.1); RETIC-HE 23.8 PG (28.2-36.6); WBC 11.02 X1000 (4.8-10.8)
[2019-12-15] MEDS ORDERED: BENADRYL PO ONE (04:25)
[2019-12-15 04:26] LABS: AGAP 15; ALB/GLOB RATIO 0.9; ALKALINE PHOSPHATASE 242 U/L (32-104); BUN 5 mg/dL (8-22); CALCIUM 9.1 mg/dL (8.8-10.2); CHLORIDE 100 mmol/L (98-107); COSMO 273; CREATININE 0.6 mg/dL (0.5-0.9); ESTIMATED GFR > 60; GLUCOSE 95 mg/dL (70-104); GOT 17 U/L (10-30); GPT 29 U/L (10-36); POTASSIUM 3.6 mmol/L (3.5-5.1); SODIUM 138 mmol/L (136-145); TCO2 23 mmol/L (25-35); TOTAL BILIRUBIN 1.27 mg/dL (0.20-1.00); TOTAL PROTEIN 8.5 g/dL (6.3-8.3)
[2019-12-15 04:42] LABS: URINE SOURCE CLEAN CATCH
[2019-12-15 04:54] LABS: LDH 214 U/L (135-214)
[2019-12-15 04:58] LABS: BILIRUBIN URINE NEGATIVE (NEGATIVE); BLOOD URINE TRACE (NEGATIVE); COLOR ORANGE; GLUCOSE URINE NEGATIVE (NEGATIVE); KETONE URINE NEGATIVE (NEGATIVE); LEUKOCYTES URINE NEGATIVE (NEGATIVE); NITRITE URINE NEGATIVE (NEGATIVE); PH URINE 6.5; PROTEIN URINE 30 mg/dL (NEGATIVE); SP GRAVITY URINE 1.016; TURBIDITY URINE CLEAR (CLEAR); UROBILINOGEN URINE NORMAL (NORMAL)
[2019-12-15 05:04] LABS: UR EPITHELIAL CELLS <10 /HPF (<10); URINE BACTERIA NEGATIVE /HPF; URINE RBC <10 /HPF (<10); URINE WBC <10 /HPF (<10)
[2019-12-15 05:14] LABS: URINE CASTS NONE SEEN; URINE CRYSTALS NONE SEEN; URINE SMALL ROUND CELLS NONE SEEN; URINE YEAST NONE SEEN
[2019-12-15] MEDS ORDERED: MAXIPIME 1 GM in NS 50 ML IV ONE (05:21)
[2019-12-15 05:31] LABS: INR 1.24; PROTIME 15.8 Seconds (11.0-16.0)
[2019-12-15 05:32] LABS: PTT 46.5 Seconds (22.3-41.8)
[2019-12-15 05:45] LABS: UR AMPHETAMINES QUAL NONE DETECTED (NONE DETECT); UR BARBITUATES QUAL NONE DETECTED (NONE DETECT); UR BENZODIAZEPIN QUAL PRESUMPTIVE POSITIVE (NONE DETECT); UR CANNABINOIDS QUAL PRESUMPTIVE POSITIVE (NONE DETECT); UR COCAINE QUAL NONE DETECTED (NONE DETECT); UR METHADONE QUAL NONE DETECTED (NONE DETECT); UR OPIATES QUAL PRESUMPTIVE POSITIVE (NONE DETECT); UR OXYCODONE QUAL PRESUMPTIVE POSITIVE (NONE DETECT); UR PCP QUAL NONE DETECTED (NONE DETECT)
--- NOTE | 2019-12-15 07:29 | HISTORY AND PHYSICAL ---
CHIEF COMPLAINT: Fever and pain. HISTORY OF PRESENT ILLNESS: Ms. Henley is a 24-year-old -Turk[place] female, very well-known to our service. She has a history of sickle cell disease, MSSA bacteremia, tricuspid valve endocarditis, microcytic anemia, cavitary pneumonia associated with septic PE in September of 2019, polysubstance dependence, avascular necrosis of the right hip and shoulder, asthma, chronic leukocytosis, constipation, and depression. She was recently admitted to our service on 12/06/2019 and discharged on 12/11/2019 after having a full sepsis workup. No source of infection could ever be found, however, she was febrile. She returned to the emergency room two days after being discharged, continued having fevers but, again, no source of infection could be noted. Tonight she returns to the emergency room and has bilateral pneumonia. She is febrile at 102.2 and tachycardic with a rate of 136. She is complaining of pain. She will be given fluid hydration, started on daptomycin and Maxipime IV, and placed in the hospital for further evaluation and treatment. PAST MEDICAL HISTORY: See HPI. PREVIOUS SURGICAL HISTORY: Right chest Port-A-Cath insertion and multiple removals, cholecystectomy. SOCIAL HISTORY: No tobacco or alcohol. She does use marijuana. She has a history of narcotic dependence related to her sickle cell pain. FAMILY HISTORY: She has two living brothers who have sickle cell, an older brother who has from sickle cell, and a grandfather that has sickle cell, and her grandmother and both parents have sickle cell trait. ALLERGIES: Latex, Demerol and vancomycin. REVIEW OF SYSTEMS: A 14-point review of systems was conducted with the patient. She is having leg and chest pain, fevers and chills, generalized body aches. Denies any nausea or vomiting at this time. PHYSICAL EXAMINATION: VITAL SIGNS: Temperature 102.2, pulse 136, respirations 15, blood pressure 106/58, and oxygen saturation is 96% on room air. GENERAL: A 24-year-old -Turk[place] female lying in the ER stretcher. She is moaning, almost tearful with pain. She is in mild distress related to that, otherwise appears to be in no acute distress. HEENT: The head is atraumatic an normocephalic. The pupils are equal, round, and reactive to light. Extraocular eye movement is intact. The sclerae are nonicteric. The conjunctivae are pale. The oral mucosa is dry. NECK: Supple. No JVD. No thyromegaly. The trachea is midline. No cervical lymphadenopathy. CARDIAC: S1, S2 appreciated. She is tachycardic. LUNGS: Crepitations noted throughout bilateral lung farmer. Coarse crepitations. No wheezing. Symmetric rise and fall with respirations. ABDOMEN: Soft, nondistended, and nontender. Bowel sounds present in all four quadrants. Normoactive. No pulsatile masses. No organomegaly. NEUROLOGICAL: She is alert and oriented x3. No focal motor deficits. Otherwise nonfocal examination. SKIN: Warm and dry. Very warm to touch. She is intact. No acute lesions or rash. DIAGNOSTIC DATA: Chest x-ray shows bilateral pneumonia. LABORATORY DATA: White blood cell count 11.02, hemoglobin 7.7, hematocrit 24, platelet count 297,000. Reticulocyte count 23.8. Sodium 138, potassium 3.6, chloride 100, carbon dioxide 23, BUN 5, creatinine 0.6, glucose 95. Urine unremarkable. ASSESSMENT: 1. Bilateral pneumonia. We will treat this as healthcare-acquired since she has been in the hospital emergency room pretty much every day for the last week. 2. Sickle cell, without sickle cell crisis at this time. 3. Sepsis secondary to #1. 4. Hypotension. PLAN: We will send blood cultures, trend her lactate levels, and place on Maxipime and daptomycin. Continue to hydrate with saline. She received one bolus in the emergency room. We will treat the fever with Tylenol. We will give Dilaudid acutely over the next 24 hours for pain control. Phenergan as needed for nausea. Recommend weaning the Dilaudid and changing to a p.o. pain agent in the next 24 hours. Further recommendations per the patient's clinical course. Dictated by CORRINA Chatterjee for Db Steiner MD cc: CORRINA Chatterjee MD Patient is a 24 y/o female with a h/o sickle cell disease presenting with fever and cxr that shows bilateral infiltrate. I agree with the A/P of the CORRINA.. Dr. Obdulia CARMEN
--- NOTE | 2019-12-15 07:39 | Diag Imaging Result Doc PS360 ---
EXAM: CHEST-1 VIEW HISTORY: sickle cell, fever TECHNIQUE: Single view COMPARISON: 12/13/2019 FINDINGS: Poor inspiratory effort. There are bilateral infiltrates similar to the prior exam. The heart is borderline mildly prominent. Questionable trace right effusion. IMPRESSION: No interval improvement Electronically signed by Sahil Solitario 12/15/2019 7:36 AM
[2019-12-15] MEDS ORDERED: DILAUDID IV PRN (07:54)
--- NOTE | 2019-12-15 09:17 | Diag Imaging Result Doc PS360 ---
CT THORAX W/O CONTRAST - 12/15/2019 INDICATION: sepsis/pneumonia/recurrent fever COMPARISON: 11/06/2019 FINDINGS: There is splenomegaly. There is mild cardiomegaly. Anemia is present. There has overall been some improvement in the numerous bilateral peripheral mostly cavitary lesions suggesting septic emboli throughout the lungs. There is hazy interstitial pulmonary edema with smooth intralobular septal thickening in the lung bases, stable from prior. No pneumothorax or pleural effusion. No new infiltrates. Bones are intact. IMPRESSION: 1. Improvement in the numerous bilateral cavitary nodules throughout the lungs. 2. Mild cardiomegaly. Mild pulmonary edema. This exam was performed using automated exposure control, adjustment of mA or kV according to patient size, and/or use of iterative reconstruction technique Electronically signed by Errol Curiel 12/15/2019 9:15 AM
[2019-12-15] MEDS: BENADRYL IV PRN ×3 (09:24→21:26)
[2019-12-15] MEDS: NS 1,000 ML IV SCH ×2 (09:25→19:22)
[2019-12-15] MEDS: PHENERGAN IV PRN ×2 (12:34→18:17)
[2019-12-15] MEDS: DILAUDID IV PRN ×5 (12:34→21:36)
[2019-12-15] MEDS: SODIUM CHLORIDE 0.9% INJ PRN ×2 (12:34→18:17)
[2019-12-15] MEDS: TYLENOL PO PRN (14:23)
[2019-12-15] MEDS ORDERED: BLISTEX MEDICATED BERRY LIP BALM TOP PRN (16:05)
[2019-12-15] MEDS ORDERED: MOTRIN PO ONE (16:22)
[2019-12-15] MEDS: ZYVOX 600 MG/D5W 600 MG/300 ML IVPB IV SCH (16:42)
[2019-12-15] MEDS ORDERED: MAXIPIME 1 GM in NS 50 ML IV SCH (18:00)
[2019-12-15] MEDS ORDERED: MOTRIN PO PRN (19:04)
[2019-12-15] MEDS: MAXIPIME 2 GM/NS 2 GM/100 ML IVPB IV SCH (21:25)
[2019-12-15] MEDS: HYDREA PO SCH (21:25)
[2019-12-15] MEDS: AMBIEN PO SCH (21:26)
[2019-12-16] MEDS: SODIUM CHLORIDE 0.9% INJ PRN ×4 (00:39→15:36)
[2019-12-16] MEDS: DILAUDID IV PRN ×5 (00:39→15:36)
[2019-12-16] MEDS: PHENERGAN IV PRN ×3 (00:42→15:36)
[2019-12-16] MEDS: NS 1,000 ML IV SCH ×3 (00:43→18:12)
[2019-12-16] MEDS ORDERED: MAXIPIME 2 GM/NS 2 GM/100 ML IVPB IV SCH (01:00)
[2019-12-16] MEDS: ZYVOX 600 MG/D5W 600 MG/300 ML IVPB IV SCH ×2 (03:58→15:35)
[2019-12-16] MEDS: BENADRYL IV PRN ×3 (03:59→20:09)
[2019-12-16] MEDS: ZOLOFT PO SCH (08:54)
[2019-12-16] MEDS: MAXIPIME 2 GM/NS 2 GM/100 ML IVPB IV SCH ×2 (08:54→18:41)
[2019-12-16] MEDS ORDERED: NS 250 ML ONE (08:56)
[2019-12-16 09:33] LABS: BASO# 0.03 X1000 (0.0-0.2); BASO% 0.2 % (0.0-0.8); EOS# 0.28 X1000 (0.0-0.7); EOS% 1.8 % (0.0-10.0); HEMATOCRIT 21.1 % (37.0-47.0); HEMOGLOBIN 6.7 g/dL (12.0-16.0); IMM GRAN% 0.6 % (0.0-0.5); LYMPH% 12.3 % (20.5-51.1); MCH 26.5 PG (27-31); MCHC 31.8 g/dL (33-37); MCV 83.4 FL (81-99); MONO% 2.6 % (1.7-9.3); MPV 7.7 FL (7.4-10.4); NEUT# 12.79 X1000 (1.4-6.5); NEUT% 82.5 % (42.2-75.2); PLT 230 X1000 (130-400); RBC 2.53 XMIL (4.2-5.4); RDW 22.8 % (11.5-14.5)
[2019-12-16 09:38] LABS: AGAP 11; BUN 6 mg/dL (8-22); CALCIUM 8.9 mg/dL (8.8-10.2); CHLORIDE 106 mmol/L (98-107); COSMO 275; CREATININE 0.4 mg/dL (0.5-0.9); ESTIMATED GFR > 60; GLUCOSE 89 mg/dL (70-104); POTASSIUM 3.5 mmol/L (3.5-5.1); SODIUM 139 mmol/L (136-145); TCO2 22 mmol/L (25-35)
[2019-12-16 11:17] LABS: ANISOCYTOSIS 2+; BANDS 4 % (0-1); HYPOCHROM 2+; LYMPHS 10 % (21-51); MONO 4 % (1-9); SEGS 82 % (42-75)
[2019-12-16 11:18] LABS: HOWELL-JOLLY BODIES 1+; POIKILOCYTOSIS 1+; TARGET CELLS 1+
--- NOTE | 2019-12-16 14:07 | PROGRESS NOTE ---
DATE: 12/16/2019 SUBJECTIVE: The patient was noted to be febrile with a temperature of 100.3 degrees this morning. She states that she feels a little bit better today. She does complain of generalized aches and pains. OBJECTIVE: Vital Signs: Temperature 98.7 degrees, blood pressure 118/75, heart rate 105, respirations 16, O2 saturation is 100% on room air. General: This is a young female, lying in bed in no acute distress. Heart: S1, S2. Normal. Tachycardic. Lungs: Clear to auscultation bilaterally. No wheezing. No rales. No rhonchi. Abdomen: Positive bowel sounds. Soft, nontender, nondistended. Extremities: No edema, no cyanosis. Neurologic: The patient is alert and oriented x3. LABS: White blood cell count 15, hemoglobin 6.7, hematocrit 21, platelets 230. Sodium 139, potassium 3.5, chloride 106, CO2 22. BUN 6, creatinine 0.4, glucose 89. ASSESSMENT AND PLAN: 1. Sepsis secondary to pneumonia. We will continue with broad-spectrum antibiotics. Blood and sputum cultures have been obtained and the results are currently pending. 2. Bilateral lobe pneumonia. We will continue with broad-spectrum antibiotics, as well as bronchodilator therapy. 3. Sickle cell crisis. Continue with intravenous fluids, antiemetics and pain medication as needed. 4. Bilateral cavitary nodules in the lungs secondary to septic emboli. The CT scan done yesterday shows improvement. Continue with the current treatment regimen. 5. Septic emboli to the lungs. Aware. 6. h/o Tricuspid valve endocarditis status post treatment. The patient completed her course of antibiotics in October. 7. Polysubstance abuse. Aware. The patient has been counseled about drug cessation. 8. Situational depression. Continue on Zoloft. 9. Disposition. The patient is currently being ruled out for COVID 19. cc: Geraldine Napier MD MTDD
[2019-12-16 17:01] LABS: HEMATOCRIT 17.3 % (37.0-47.0)
[2019-12-16] MEDS ORDERED: NS 500 ML IV ONE (18:20)
[2019-12-16 18:30] LABS: HEMOGLOBIN 5.6 g/dL (12.0-16.0)
[2019-12-16] MEDS: DILAUDID PO PRN (20:08)
[2019-12-16] MEDS: TYLENOL PO PRN (20:21)
[2019-12-16] MEDS: HYDREA PO SCH (21:43)
[2019-12-16] MEDS: AMBIEN PO SCH (21:43)
[2019-12-17] MEDS: DILAUDID PO PRN ×6 (00:21→21:17)
[2019-12-17] MEDS: PHENERGAN IV PRN ×3 (00:21→17:11)
[2019-12-17] MEDS: NS 1,000 ML IV SCH ×4 (00:36→18:05)
[2019-12-17] MEDS: MERREM 1 GM in NS 50 ML IV SCH ×4 (00:37→21:17)
[2019-12-17] MEDS: ZYVOX 600 MG/D5W 600 MG/300 ML IVPB IV SCH ×2 (04:40→16:09)
[2019-12-17] MEDS: BENADRYL IV PRN ×3 (04:40→21:31)
[2019-12-17] MEDS ORDERED: NS 50 ML ONE (06:10)
[2019-12-17 06:16] LABS: BASO# 0.02 X1000 (0.0-0.2); BASO% 0.2 % (0.0-0.8); EOS# 0.14 X1000 (0.0-0.7); EOS% 1.1 % (0.0-10.0); HEMATOCRIT 20.4 % (37.0-47.0); HEMOGLOBIN 6.7 g/dL (12.0-16.0); IMM GRAN# 0.03 X1000 (0.0-0.04); IMM GRAN% 0.2 % (0.0-0.5); LYMPH# 1.34 X1000 (1.2-3.4); LYMPH% 10.2 % (20.5-51.1); MCH 27.7 PG (27-31); MCHC 32.8 g/dL (33-37); MCV 84.3 FL (81-99); MONO# 0.42 X1000 (0.11-0.59); MONO% 3.2 % (1.7-9.3); MPV 8.3 FL (7.4-10.4); NEUT# 11.21 X1000 (1.4-6.5); NEUT% 85.1 % (42.2-75.2); PLT 179 X1000 (130-400); RBC 2.42 XMIL (4.2-5.4); RDW 19.2 % (11.5-14.5); WBC 13.16 X1000 (4.8-10.8)
[2019-12-17 06:49] LABS: BANDS 1 % (0-1); EOS 1 % (1-10); LYMPHS 10 % (21-51); MONO 1 % (1-9); SEGS 87 % (42-75)
[2019-12-17 06:50] LABS: HYPOCHROM 1+; POLYCHROM 1+
[2019-12-17] MEDS ORDERED: KLOR-CON PO ONE ×2 (06:52→17:51)
--- NOTE | 2019-12-17 07:22 | Diag Imaging Result Doc PS360 ---
CHEST-1 VIEW - 12/17/2019 INDICATION: pneumonia COMPARISON: 12/15/2019 FINDINGS: There is a left PICC line in good position with the catheter tip at the cavoatrial junction. Stable cardiomegaly. There is slight worsening hazy infiltrate in the right lung base. Stable pulmonary vascular congestion. Stable hazy infiltrate or edema in the right upper lobe as well. No large pleural effusion. IMPRESSION: Slight worsening hazy infiltrate in the right lung base. Electronically signed by Errol Curiel 12/17/2019 7:20 AM
[2019-12-17] MEDS: ZOLOFT PO SCH (08:06)
[2019-12-17 08:25] LABS: AGAP 11; BUN 4 mg/dL (8-22); CHLORIDE 111 mmol/L (98-107); COSMO 275; CREATININE 0.3 mg/dL (0.5-0.9); ESTIMATED GFR > 60; GLUCOSE 80 mg/dL (70-104); POTASSIUM 2.8 mmol/L (3.5-5.1); SODIUM 140 mmol/L (136-145); TCO2 18 mmol/L (25-35)
[2019-12-17 08:31] LABS: CALCIUM 6.3 mg/dL (8.8-10.2)
[2019-12-17] MEDS: SODIUM CHLORIDE 0.9% INJ PRN (08:54)
[2019-12-17] MEDS ORDERED: CALCIUM GLUCONATE 1 GM in NS 50 ML IV ONE (10:51)
[2019-12-17] MEDS ORDERED: POTASSIUM CHLORIDE 60 MEQ in NS 500 ML IV ONE (12:00)
[2019-12-17 13:14] LABS: ALLEN TEST NO; BE -0.2 mmoll (-3.0-3.0); BLOOD TYPE ARTERIAL; HCO3-(ACT) 24.8 mmoll (20.0-26.0); METHB 1.3 % (0.0-1.5); O2(CT) 10.5 mL/dL (15.0-23.0); PCO2(98.6) 31 mmHg (35-45); PO2(98.6) 99 mmHg (60-100); SAMPLE BLOOD; SAO2 99.6 % (95.0-100.0); THB 7.7 g/dL (11.5-17.4); pH(98.6) 7.48 (7.35-7.45)
[2019-12-17 13:15] LABS: MODALITY ROOM AIR
--- NOTE | 2019-12-17 14:04 | ECHO REPORT ---
ORDER DATE: 12/17/2019 INDICATION: History of tricuspid valve endocarditis. FINDINGS: 1. The right atrium appears normal in size. There is a linear echodensity in the right atrium which seems to at times project across the annulus of the tricuspid valve. This would suggest to be consistent with the patient's a PICC line placement. 2. There is severe tricuspid regurgitation. The RV systolic pressure is 82 suggesting severe pulmonary hypertension. There do appear to be echo densities adherent to the septal and posterior tricuspid leaflets suggesting persistent vegetations that were previously noted on echocardiogram in September 2019. 3. The right ventricle appears to have normal size and systolic function. 4. No mitral valve prolapse. Essentially no Doppler evaluation was performed of the mitral valve. This was a limited study. 5. Normal LV size, end-diastolic dimension of 4.6 cm. Normal wall thicknesses with a posterior and interventricular septal wall thickness of 1.1 cm each. Normal LV systolic function with an estimated EF of 60%. Notably, I do not see that a bubble study was performed but there do appear to be a spontaneous bubbles present in the left and right ventricles suggesting [id number] shunting. Cannot clearly see if this is across the interatrial septum. Clinical correlation is recommended. Consideration for possible transesophageal echocardiogram to further evaluate. 6. The aortic valve appears to open well. There is no evidence of stenosis or insufficiency. 7. No pericardial effusion seen. cc: MD Geraldine Mejia MD MTDD
--- NOTE | 2019-12-17 14:48 | CARDIOLOGY CONSULTATION ---
DATE: 12/17/2019 REASON FOR CONSULTATION: Transesophageal echocardiogram to evaluate endocarditis and tricuspid regurgitation. HISTORY OF PRESENT ILLNESS: The patient is a 24-year-old, lady with history of sickle-cell disease, MSSA bacteremia, tricuspid valve endocarditis, microcytic anemia, cavitary pneumonia associated with septic PE in September 2019, has history of polysubstance abuse. She was admitted on 12/06/2019 and discharged on 12/11/2019 after having a full service workup. No source of infection could be found. The patient was admitted within 2 days after being discharged, continued to have fevers. No source of infection noted. Two blood cultures were positive as temperature was elevated today. Two more sets of blood cultures have been drawn. She was febrile at 102. She was given IV fluids, started on IV Maxipime and daptomycin. She says she feels better today, does not complain of chest pain or palpitations. PAST MEDICAL HISTORY: 1. Sickle cell anemia. 2. MSSA bacteremia. 3. Tricuspid valve endocarditis. 4. Cavitary pneumonia associated with PE in September 2019. 5. Right chest Port-A-Cath insertion with multiple removals. 6. Cholecystectomy. SOCIAL HISTORY: She has a history of narcotic dependence related to sickle cell. She has drug abuse. FAMILY HISTORY: Has 2 living brothers who have sickle cell. An older brother who from sickle cell. Grandfather that had sickle-cell. Grandmother and both parents have had sickle cell. ALLERGIES: She is allergic to Demerol, vancomycin and latex. REVIEW OF SYSTEMS: A 14-point review of system was done. PHYSICAL EXAMINATION: Vital Signs: Blood pressure 106/58, temperature 100 degrees. Cardiovascular: First and second heart sounds were heard. There was no S3 gallop. There was systolic murmur. Respiratory: Scattered crepitations. Abdomen: Soft, nontender. There was no guarding or rigidity. Bowel sounds were heard. Central nervous system: Alert, oriented, was moving all 4 extremities. Extremities: Examination of extremities revealed trace edema. LABORATORY DATA: WBC 13.16, hemoglobin 6.7, hematocrit 20.4, platelet count of 179,000. Chemistry: Sodium 140, potassium 2.8, BUN 4, creatinine 0.3, calcium 6.3. C-reactive greater than 10,000. Toxicology: Cannabinoids positive, oxycodone positive. IMAGING: Chest x-ray: Worsening hazy infiltrate in the right lung base. Chest CT on 12/15/2019 revealed cardiomegaly, mild pulmonary edema. CURRENT MEDICATIONS: 1. Diphenhydramine. 2. Dilaudid. 3. Hydroxyurea. 4. Motrin as needed. 5. Zyvox. 6. Meropenem. 7. Potassium supplements. 8. She was treated with calcium gluconate and IV potassium. ASSESSMENT AND PLAN: 1. Ms. Nina Henley is a 24-year-old, lady with history of sickle cell disease, drug abuse, MSSA bacteremia with cavitary pneumonia associated with septic pulmonary embolism, is readmitted with fever. So far, two sets of blood cultures negative. Two more sets of blood cultures were drawn. She is on multiple antibiotics. She was admitted here on 12/06/2019 and discharged on 12/11/2019, after having a full sepsis workup. She had an echocardiogram done which revealed significant change from previous echocardiogram. There is severe tricuspid regurgitation with RV systolic pressure of 82 mmHg with severe pulmonary arterial hypertension. Echo densities that enter the septal and tricuspid valve noted. Left ventricular systolic function was 60%. We will plan for a transesophageal echocardiogram in the morning. 2. Await blood cultures report. 3. Given her severe worsening of her tricuspid regurgitation, would recommend transferring her to a facility where cardiac surgery is performed. We will await the blood culture reports as well as the VIELKA Thank you for the consult. cc: Chico Bauer MD
[2019-12-17 14:54] LABS: AGAP 9; BUN 4 mg/dL (8-22); CALCIUM 17.4 mg/dL (8.8-10.2); CHLORIDE 104 mmol/L (98-107); COSMO 265; CREATININE 0.4 mg/dL (0.5-0.9); ESTIMATED GFR > 60; GLUCOSE 88 mg/dL (70-104); MAGNESIUM 1.7 mg/dL (1.5-2.7); POTASSIUM 3.1 mmol/L (3.5-5.1); SODIUM 134 mmol/L (136-145); TCO2 21 mmol/L (25-35)
--- NOTE | 2019-12-17 19:38 | PROGRESS NOTE ---
DATE: 12/17/2019 SUBJECTIVE: The patient was noted to be febrile last night with a T-max of 102.5 degrees. This morning she has been afebrile. She denies having any shortness of breath or cough. OBJECTIVE: Vital Signs: T-max 102.5 degrees, blood pressure 108/65, heart rate 120, respirations 18, O2 saturations 100% on room air. General: This is a young female lying in bed in no acute distress. Heart: S1, S2 normal. Tachycardic. Positive for systolic murmur. Abdomen: Positive bowel sounds. Soft, nontender, nondistended. Extremities: No edema, no cyanosis. Neurologic: The patient is alert and oriented x3. LABORATORY DATA: White blood cell count 13, hemoglobin 6.7, hematocrit 20, platelets 179,000, sodium 140, potassium 2.8, chloride 111, CO2 18, BUN 4, creatinine 0.3, glucose 80, magnesium 1.7, calcium 8.3. IMAGING: Chest x-ray shows slight worsening of the hazy infiltrate in the right lung base. LIMITED ECHOCARDIOGRAM: Reveals severe pulmonary hypertension and severe tricuspid regurgitation which is worse. Densities are adherent to the septal and posterior tricuspid leaflets suggesting persistent vegetations that were noted in September of 2019. ASSESSMENT AND PLAN: 1. Sepsis secondary to recurrent tricuspid valve endocarditis with associated septic pulmonary emboli with pneumonia. The limited echocardiogram done today reveals severe tricuspid valve regurgitation as well as severe pulmonary hypertension, which is worse when compared to the echocardiogram done in September of 2019. The case was discussed with Dr. Bauer, and he plans to do a VIELKA tomorrow. So far the patient's blood cultures remain negative; however, the patient continues to be febrile. We will continue with broad-spectrum antibiotics pending the culture results. We will likely try to make arrangements for the patient to be transferred to a tertiary center for further treatment for her endocarditis. 2. Sickle cell crisis. The patient received 2 units of packed red blood cells yesterday. Her hemoglobin and hematocrit improved slightly. Hematology has been consulted for further recommendations. 3. Bilateral lobe pneumonia with septic pulmonary emboli. Continue with broad- spectrum antibiotics. The patient is not requiring supplemental oxygen at this time. 4. Polysubstance abuse. Aware. 5. Situational depression. Continue on Zoloft. 6. Hypokalemia. Will replace the potassium. DISPOSITION: The patient was ruled out for COVID 19. We will await the results of the VIELKA to be done tomorrow and attempt to transfer the patient to a tertiary center. cc: Geraldine Napier MD MTDD
[2019-12-17] MEDS: AMBIEN PO SCH (21:17)
[2019-12-17] MEDS: HYDREA PO SCH (21:17)
[2019-12-18] MEDS: MERREM 1 GM in NS 50 ML IV SCH ×2 (00:52→08:16)
[2019-12-18] MEDS: PHENERGAN IV PRN ×2 (00:59→12:10)
[2019-12-18] MEDS: DILAUDID PO PRN ×4 (02:00→15:35)
[2019-12-18] MEDS: ZYVOX 600 MG/D5W 600 MG/300 ML IVPB IV SCH (06:23)
[2019-12-18 06:41] LABS: BASO# 0.02 X1000 (0.0-0.2); BASO% 0.1 % (0.0-0.8); EOS# 0.09 X1000 (0.0-0.7); EOS% 0.7 % (0.0-10.0); HEMATOCRIT 21.1 % (37.0-47.0); HEMOGLOBIN 7.1 g/dL (12.0-16.0); IMM GRAN# 0.05 X1000 (0.0-0.04); IMM GRAN% 0.4 % (0.0-0.5); LYMPH# 2.67 X1000 (1.2-3.4); LYMPH% 19.8 % (20.5-51.1); MCH 28.2 PG (27-31); MCHC 33.6 g/dL (33-37); MCV 83.7 FL (81-99); MONO% 4.4 % (1.7-9.3); MPV 8.5 FL (7.4-10.4); NEUT# 10.08 X1000 (1.4-6.5); NEUT% 74.6 % (42.2-75.2); PLT 206 X1000 (130-400); RBC 2.52 XMIL (4.2-5.4); RDW 19.7 % (11.5-14.5); WBC 13.51 X1000 (4.8-10.8)
[2019-12-18 07:12] LABS: AGAP 9; BUN 4 mg/dL (8-22); CALCIUM 8.8 mg/dL (8.8-10.2); CHLORIDE 103 mmol/L (98-107); COSMO 267; CREATININE 0.4 mg/dL (0.5-0.9); ESTIMATED GFR > 60; GLUCOSE 95 mg/dL (70-104); SODIUM 135 mmol/L (136-145); TCO2 23 mmol/L (25-35)
[2019-12-18] MEDS: BENADRYL IV PRN ×2 (08:05→15:35)
[2019-12-18] MEDS: ZOLOFT PO SCH ×2 (08:05→08:17)
[2019-12-18] MEDS: NS 1,000 ML IV SCH (08:16)
[2019-12-18] MEDS ORDERED: FENTANYL ONE (12:48)
[2019-12-18] MEDS ORDERED: DIPRIVAN 1% ONE (12:48)
[2019-12-18] MEDS ORDERED: XYLOCAINE 2% VISCOUS ONE (13:30)
--- NOTE | 2019-12-18 13:59 | PROGRESS NOTE ---
DATE: 12/18/2019 SUBJECTIVE: The patient states that she does not feel well today. She just complains of generalized aches and pains. She denies having any shortness of breath. The patient has been afebrile for more than 24 hours. No acute events noted overnight. OBJECTIVE: Vital Signs: Temperature 98.3 degrees, blood pressure 123/71, heart rate 124, respirations 18, O2 saturation is 100% on room air. General: This is a young female lying in bed in no acute distress. Heart: S1, S2 normal. Tachycardic. Lungs: Clear to auscultation bilaterally. No wheezing. No rales. No rhonchi. Abdomen: Positive bowel sounds. Soft, nontender, nondistended. Extremities: No edema, no cyanosis, no calf tenderness. Neuro: The patient is alert and oriented x3. LABS: White blood cell count 13, hemoglobin 7.1, hematocrit 21, platelets 206,000. Sodium 135, potassium 4, chloride 103, CO2 23, BUN 4, creatinine 0.4, glucose 95. ASSESSMENT AND PLAN: 1. Sepsis secondary to recurrent tricuspid valve endocarditis with associated septic pulmonary emboli with pneumonia. The patient is scheduled to undergo a VIELKA. We will await the results of this diagnostic procedure. We will continue with broad-spectrum antibiotics. So far the blood cultures remain negative. The patient will likely require transfer to a tertiary center for CV surgery evaluation given the severe changes in the patient's limited echocardiogram done yesterday that revealed severe tricuspid valve regurgitation as well as severe pulmonary hypertension. 2. Sickle cell crisis. Continue on the current treatment regimen. Hematology is following. 3. Bilateral lobe pneumonia with septic pulmonary emboli. Continue with antibiotic therapy. 4. Sinus tachycardia. Likely secondary to the underlying sepsis. 5. Polysubstance abuse. Aware. 6. Situational depression. Continue on Zoloft. 7. Disposition. The patient is scheduled to undergo a VIELKA this afternoon. Will await the results and attempt to transfer the patient to a tertiary center. I called [facility] and they are currently on diversion. cc: Geraldine Napier MD
--- NOTE | 2019-12-18 14:09 | CONSULTATION ---
DATE OF CONSULTATION: 12/18/2019 REFERRING PHYSICIAN: Dr. Rigo Salmon. REASON FOR CONSULTATION: Pulmonary consultation evaluation. CHIEF COMPLAINT: Evaluation for pneumonia, sickle cell crisis and shortness of breath. HISTORY OF PRESENTING ILLNESS: This is a 24-year-old who was not long ago here in the hospital. At that time with infective endocarditis, also known to have sickle cell crisis. At that time she had also metastatic lung abscesses that are improving with CAT scan, at that time had like small cavitary areas that were believed to be septic emboli now improved CAT scan from end november. PAST MEDICAL HISTORY: As above. PAST SURGICAL HISTORY: As above. Also cholecystectomy and Port-A-Cath placement. SOCIAL HISTORY: Drug use and narcotic dependence. Marijuana abuse. Not a smoker. FAMILY HISTORY: Sickle cell disease present. ALLERGIES: Vancomycin, Demerol and latex. REVIEW OF SYSTEMS: As detailed in history of presenting illness, otherwise noncontributory. PHYSICAL EXAMINATION: Vital Signs: Noted. General: Sitting in bed, not in distress. Temperature 98.3, pulse rate 124, blood pressure 123/71, pulse oximetry 100 percent. Neck: Trachea midline. Chest: Few crackles bilaterally. Cardiac: S1, S2. Abdomen: Nontender. Lower extremities. +1 pedal edema. Neurologic: Awake and communicative. LABORATORIES AND INVESTIGATIONS: Chest x-ray and chest CT scan reviewed. Chest x-ray shows bilateral infiltrates. Chest CT scan of end november shows improvement in cavitary small nodules. Echocardiogram shows shunting currently that may be related to her recent infective endocarditis and she has pulmonary hypertension also. CBC, CMP seen. WBCs 15.5, creatinine 0.4, base 7.48, pCO2 31, PO2 99. This is on room air. ASSESSMENT AND PLAN: A 24-year-old female with sickle cell disease. 1. Sickle cell crisis. 2. Bilateral pneumonia with satisfactory oxygenation. Antibiotics were ordered. Will monitor responses. 3. Recent infective endocarditis with improving pulmonary cavitary nodules on CAT scan. 4. Narcotic dependence. 5. Pulmonary hypertension and shunting and cardiology seen. Case discussed with the nurse executive. cc: Raj Sousa MD MTDD
--- NOTE | 2019-12-18 14:10 | HEMO/ONC CONSULTATION ---
DATE: 12/17/2019 REQUESTING PHYSICIAN: Dr. Steiner ADMITTING PHYSICIAN: Dr. Steiner We appreciate this consult. CHIEF COMPLAINT: Sickle cell disease. HISTORY OF PRESENT ILLNESS: Ms. Loyda Henley is a 24-year-old female well known to Dr. Salmon with a history of sickle cell disease. The patient was scheduled to begin Adakveo but has been noncompliant with recent follow-ups. The patient has had multiple hospitalizations recently for bacterial endocarditis and cavitary pneumonia associated with septic pulmonary embolism. 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 The patient presented to [facility] the day of admission, as well as several days prior with reports of pain crisis as well as fevers. On the day of admission, the patient was noted to have a fever of 102.2 with a heart rate of 136. The patient underwent chest x-ray which revealed bilateral infiltrates and questionable trace right pleural effusion. The patient was admitted secondary to bilateral pneumonia with sickle cell crisis. We are consulted as the patient is well known to us. PAST MEDICAL HISTORY: As in HPI. PAST SURGICAL HISTORY: 1. Multiple Port-A-Cath placement with removal. 2. Cholecystectomy. SOCIAL HISTORY: The patient does not use tobacco or alcohol. She smokes marijuana and has a history of narcotic dependence secondary to sickle cell anemia with pain crises. FAMILY HISTORY: The patient has 2 brothers with sickle cell disease and a grandfather with sickle cell disease who is . MEDICATIONS ON ADMISSION: Medication reconciliation is currently pending. ALLERGIES: Latex, Demerol, and vancomycin. REVIEW OF SYSTEMS: A 14 point review of systems was obtained and is negative except for mentioned in HPI. PHYSICAL EXAMINATION: General: Ms. Henley is a pleasant 24-year-old female, sitting up in bed in no immediate distress. Vital Signs: Temperature 98.9 degrees, blood pressure 125/78, heart rate 115, respirations 16, O2 saturation 98% on room air. HEENT: Normocephalic, atraumatic. Mucous membranes are pale and moist. Sclerae anicteric. Extraocular movements intact. Neck: Supple. Lungs: Respirations are currently nonlabored. CV: S1, S2. The patient is tachycardic. Abdomen: Nondistended. Extremities: No clubbing, cyanosis, or edema. Dermatologic: No rashes, bruises or lesions. Neurologic: The patient is awake, alert, and oriented x3 with no focal deficit. LABORATORY DATA: Hemoglobin 6.7, hematocrit 20.4, white blood cell count 13.16, platelets 179,000. Sodium 140, potassium 2.8, chloride 111, CO2 is 18, BUN 4, creatinine 0.3, and glucose is 80, calcium 6.3. IMAGING STUDIES: Chest x-ray reveals worsening hazy infiltrate in the right lung base. ASSESSMENT AND PLAN: 1. Sickle cell disease. The patient was scheduled to begin Adakveo but has no showed for 2 appointments to initiate treatment. Prior to discharge, we will schedule a follow-up with treatment. 2. Bilateral pneumonia and sepsis. The patient is being ruled out for COVID-19. Blood and sputum cultures are currently pending. The patient is currently on meropenem and Zyvox. 3. Pain crisis secondary to #1. The patient is currently receiving IV fluids and pain medications, would continue as prescribed. 4. Septic emboli to the lungs, known. 5. History of tricuspid valve endocarditis, status post completion of antibiotics at home. 6. Polysubstance abuse, known. 7. Medical noncompliance, known. 8. We will follow along with you and make further recommendations pending outcomes. The above reflects the history, exam, assessment, and plan of Dr. Salmon. Dictated by CORRINA Ramirez for Rigo Salmon MD cc: CORRINA Ramirez MD
--- NOTE | 2019-12-18 14:18 | Transesophageal Echocardiogram ---
DATE: 12/18/2019 PROCEDURE: Transesophageal echocardiogram to evaluate for vegetation on the tricuspid valve. Informed consent was obtained from the patient. Intravenous access was already established with the PICC line. The patient was brought to the cardiac catheterization laboratory. The patient's oropharynx was anesthetized using Cetacaine spray. Anesthesia was present. Propofol was given. Please see detailed anesthesia records. A transesophageal probe was easily passed into the esophagus, and ultrasound pictures were obtained. There were no complications. FINDINGS: 1. Normal left ventricular cavity size. Estimated ejection fraction of 65%. 2. Mildly reduced right ventricular systolic function. 3. Aortic valve leaflets were trileaflet. 4. Mitral valve was normal. 5. Pulmonic valve was normal. 6. Tricuspid valve had 2 vegetations on the septal and anterior leaflets measuring 0.7 x 0.7 cm. 7. Left atrium was normal. Left atrial appendage was normal. 8. Right atrium was dilated. 9. Right ventricular systolic function reduced. 10. Ascending aorta was normal. 11. Descending aorta was normal. 12. Saline contrast study was negative for patent foramen ovale. 13. Doppler studies revealed mild mitral regurgitation. 14. There is no aortic stenosis or regurgitation. 15. There is no pulmonary regurgitation. 16. There is severe tricuspid regurgitation. 17. Peak velocity across the tricuspid valve was 3.7 m/sec. CONCLUSIONS: There were 2 vegetations noted on the tricuspid valve (mobile structures) measuring 0.7 x 0.7 cm. This was associated with severe tricuspid regurgitation. cc: MD Claudia York PA
[2019-12-18 14:45] VITALS: BP 120/80
[2019-12-18] MEDS ORDERED: CARDIZEM IV ONE (15:30)
[2019-12-18] MEDS ORDERED: CUBICIN IV SCH (16:00)
[2019-12-18] MEDS ORDERED: NS IV SCH (16:00)
--- NOTE | 2019-12-18 20:13 | DISCHARGE SUMMARY ---
ADMISSION DATE: 12/15/2019 DISCHARGE DATE: 12/18/2019 FINAL DISCHARGE DIAGNOSES: 1. Sepsis secondary to recurrent tricuspid valve endocarditis. 2. Bilateral lobe pneumonia. 3. Recurrent tricuspid valve endocarditis. 4. Septic pulmonary emboli. 5. Sinus tachycardia. 6. Sickle cell crisis. 7. Polysubstance abuse. 8. Situational depression. 9. Severe pulmonary hypertension 10. Severe tricuspid valve regurgitation CONSULTATIONS: 1. Cardiology consultation with Dr. Bauer. 2. Pulmonary consultation with Dr. Sousa. 3. Hematology consultation with Dr. Salmon. IMAGIN. Portable chest x-ray performed on 12/15/2019, which revealed bilateral infiltrates. 2. Chest CT performed on 12/15/2019, which revealed numerous bilateral cavitary nodules consistent with septic pulmonary emboli. Mild pulmonary edema. 3. Chest x-ray performed on 12/17/2019, which revealed a worsening hazy infiltrate in the right lung base. Stable pulmonary vascular congestion. 4. A limited echocardiogram which revealed severe tricuspid regurgitation. Severe pulmonary hypertension with an RV systolic pressure of 82, as well as densities adherent to the septal and posterior tricuspid leaflets. EF of 60%. PROCEDURES: VIELKA performed on 12/18/2019, which revealed tricuspid valve with 2 vegetations on the septal and anterior leaflets measuring 0.7 x 0.7 cm. Right atrium that was dilated. Severe tricuspid regurgitation. With an ejection fraction of 65%, normal LV cavity size. HOSPITAL COURSE: Ms. Henley is a 24-year-old female with a history of sickle cell disease, polysubstance abuse, and a history of multiple line infections, who presented to the ER with a chief complaint of persistent fever and general malaise. Upon arrival to the ER, the patient was noted to be febrile with a temperature of a 102.2 degrees. Blood cultures were obtained and a chest x-ray was done that revealed bilateral infiltrates. The patient had recently been treated for tricuspid valve endocarditis that was diagnosed in September 2019. She completed 6 weeks of nafcillin in October 2019. The patient was admitted with a presumptive diagnosis of bilateral lobe pneumonia and sickle cell crisis. The patient was initially started on daptomycin and cefepime. However, despite these 2 antibiotics, the patient continued to spike temperatures daily with a T-max of a 104 degrees. Repeat blood cultures were obtained. To date 3 sets of blood cultures remain negative. The patient was then switched to meropenem and Zyvox. With the initiation of these 2 medications, the patient remained afebrile. Due to the recurrent fever, pulmonary medicine as well as Cardiology were consulted. A limited echocardiogram was done on 12/17/2019 that revealed severe tricuspid regurgitation as well as severe pulmonary hypertension with an RV systolic pressure of 82. When compared to the echocardiogram done in September 2019, all of these were new findings. Back in September, the patient only had mild tricuspid regurgitation, and her RV systolic pressure at that time was 47. In light of this finding, the patient was taken for a VIELKA on 12/18/2019, which confirmed the vegetations on the septal and anterior tricuspid leaflets that were similar to September 2019. It also confirms that the patient indeed had severe tricuspid regurgitation and severe pulmonary hypertension. There was no PFO noted. The patient was noted to have an ejection fraction of 65%. The case was discussed with Dr. Tai Terrell, a CV surgeon at [facility], and he accepted the patient for transfer to [facility] for a possible tricuspid valve replacement. This was discussed with the patient and she agreed to transfer to [facility] for a higher level of care. To date the blood cultures remain negative. The patient was tested for COVID 19 and the result is negative. cc: Geraldine Napier MD MTDRowan
[2019-12-21 12:32] LABS: HEMOGLOBIN ELECTROPHORESIS SEE COMMENTS; SICKLEDEX SEE COMMENTS
== END 2019-12-18 16:33 | disposition short-term general hospital (02) | DRG 871 ==
LOC: ED 02:06 → SUATTDRO 05:49 → 4N 05:49
PROVIDERS: ATTEND Internal Medicine